=== PATIENT | male | born 1955 | race Caucasian/White ===

== ENCOUNTER → 2018-04-19 07:23 | Outpatient (CLI) | payer OTHER, SELFPAY ==
[2018-04-19 08:46] LABS: Microalbumin,Random Urine 59.7 mg/L (NO RANGE EST.); Microalbumin:Creatinine Ratio 41.2 mg/g CRE (<30 mg/g CRE)
[2018-04-19 08:54] LABS: Anion Gap 9 (5-15); BUN 17 mg/dL (7-18); BUN/Creat Ratio 18.1 RATIO (10-20); Calcium,Total 8.8 mg/dL (8.5-10.1); Chloride 100 mmol/L (98-107); Cholesterol 115 mg/dL (200); Creatinine, Serum 0.94 mg/dL (0.70-1.30); EST Glomerular Filtration Rate 86 mL/min (>60); Est Glom Filt Rate - Afr Amer 104 mL/min (>60); Glucose 142 mg/dL (74-106); High Density Lipoprotein 45 mg/dL; PSA,Total - Annual Screen 0.61 ng/mL (0.00-4.00); Potassium 4.2 mmol/L (3.5-5.1); Sodium Level 140 mmol/L (136-145); Triglycerides 76 mg/dL; Very Low Density Lipoprotein 15 mg/dL (5-40)
[2018-04-19 09:09] LABS: Hemoglobin 14.7 g/dl (13.0-16.5); Mean Corp Hgb Conc 32.7 g/gl (32-36); Mean Corpuscular Hgb 28.2 pg (27.0-32.0); Mean Corpuscular Volume 86.2 fL (80-94); Mean Platelet Vol. 10.4 fl (6.2-12.0); Platelet Count 205 K/mm3 (150-450); RBC Distribution Width SD 41.2 fl (35.1-43.9); Red Blood Count 5.22 M/mm3 (4.6-6.2)
[2018-04-19 09:17] LABS: Scan Indicated on CBC? Y/N NO
[2018-04-21 09:51] LABS: Vitamin B12 854 pg/mL (211-911)
== END ==
PROVIDERS: Family Provider Family Medicine; PCP Family Medicine; Referring Provider Family Medicine; Visit Provider Family Medicine
DX: E11.9 Type 2 diabetes mellitus without complications (principal); E78.5 Hyperlipidemia, unspecified; Z12.5 Encounter for screening for malignant neoplasm of prostate
CPT/HCPCS: 36415; 80048; 80061; 82043; 82570; 82607; 83036; 84153; 85027; G0103

== ENCOUNTER 2018-06-13 06:01 | Day surgery (SDC) | payer OTHER, SELFPAY ==
[2018-06-13] VITALS (10 sets, daily range): BP systolic 109–163; BP diastolic 47–77; PULSE 52–59; RESP 14–16; TEMP 36.8–37.1; O2SAT 95–99; BMI 41.5
--- NOTE | 2018-06-13 06:23 | PCM.HP.STD ---
Problem List (1) Personal history of colonic polyps Status: Acute History of Present Illness Date of Admission: 06/13/18 The patient is a 62 year old M who has a personal history of multiple colon polyps. His most recent colonoscopy was 5 years ago. On today's visit after having the bowel prep he complains of hemorrhoids. He otherwise has not been having abdominal pain bright red blood per rectum or melena. He has been enjoying a stable degree of health. He does have superficial chronic lower extremity venous stasis disease. He is prediabetic on oral medication. He denies chest pain. Past Medical History Allergies lisinopril Adverse Reaction (Verified 05/31/15 15:16) Other Home Medications: Ambulatory Orders Medication Instructions Recorded Amlodipine [Norvasc] 10 mg PO DAILY 04/23/13 Hydrochlorothiazide [Hctz] 25 mg PO DAILY 04/23/13 Losartan Potassium [Cozaar] 50 mg PO DAILY 04/23/13 [place]-3 Fatty Acids [Fish Oil] 300 mg PO DAILY 04/23/13 Aspirin E.C. [Ecotrin] 81 mg PO DAILY@0800 11/09/14 Multivitamins,Therapeutic 1 tablet PO DAILY 11/09/14 [Multivitamin] Metformin HCl [Metformin HCl ER] 1,000 mg PO BID 06/12/18 Smoking Status: Former smoker Review of Systems Constitutional: Denies: Anorexia HEENT: Denies: Difficulty Swallowing Cardiovascular: Denies: Chest Pain Respiratory: Denies: Cough Gastrointestinal: Denies: Abdominal Pain, Hematochezia, Melena Psychiatric: Denies: Anxiety Endocrine: Denies: Change in Body Habitus VTE Information - Inpt Only VTE Present on Admission: No Patient Problems: Active and Suspected Problems Personal history of colonic polyps (Acute) - Physical Exam General: Alert, Oriented x3, Cooperative, No apparent distress HEENT: Atraumatic Oral: Moist Mucosa Neck: Supple Lungs: Clear to auscultation Cardiovascular: Regular rate, Regular Rhythm Abdomen: Bowel Sounds Present, Soft, Non Tender Extremities: No Calf Tenderness, - - Bilateral lower extremity support hose in place Neurological: Cranial nerves II-XII grossly intact Psych/Mental Status: Normal Affect Finger Stick Blood Glucose 136 Assessment/Plan All Active Problems Personal history of colonic polyps (Acute) We will proceed with a colonoscopy with possible biopsy or polypectomy as indicated. The patient is aware of the technique, benefits, risks and alternatives. He has had an opportunity to ask and have questions answered. He presents via open access. Kishore De Anda M.D., F.A.C.S.
[2018-06-13 06:46] LABS: Bedside Glucose 118 mg/dL (70-110)
--- NOTE | 2018-06-13 07:00 | COLBX_PTH ---
PATIENT: MARY HOLDEN LOC: EN U#:[id number] AGE/SX: 62/M ROOM: RE06/13/[address]: Dr. Kishore De Anda MD : 1955 BED: DIS: 06/13/2018 SPEC #: [id number] RECD: 06/13/18 12:10 STATUS: MIKEL NATHALY #: [id number] CLAY: 06/13/18 07:[address]: Kishore De Anda DEPT: SURGICAL PATHOLOGY RECD BY: Connor Wade ENTERED: 06/13/18 12:35 SP TYPE: COLON BX OT DR: Dr. James De Anda III, MD Tissues: A - Ascending colon B - Descending colon Procedures: Surgery Specimen Level IV HEADER OPERATION: Colonoscopy - open access (MOD) PRE-OP DIAGNOSIS: History of colon polyps TISSUE SUBMITTED: A - Biopsy polyp proximal ascending, B - Biopsy polyp descending colon MICROSCOPIC DIAGNOSIS A. Proximal ascending colon polyp, biopsy: Fragments of tubular adenoma. B. Descending colon polyp, biopsy: Fragments of tubular adenoma. AM:nirmala 06/16/18 MICROSCOPIC DESCRIPTION Slides are reviewed. GROSS DESCRIPTION A - Received in fixative is one container labeled with the patient's name and designated biopsy polyp proximal ascending. The specimen consists of two irregular fragments of light rosado soft tissue that in aggregate measure 0.5 x 0.5 x 0.1 cm. The specimen is totally submitted in one cassette. B - Received in fixative is one container labeled with the patient's name and designated biopsy polyp descending colon. The specimen consists of multiple irregular fragments of light rosado soft tissue that in aggregate measure 1 x 0.5 x 0.1 cm. The specimen is totally submitted in one cassette. / SJ:nirmala 06/13/18 TC:5 [facility]: [id number] x2
--- NOTE | 2018-06-13 07:27 | OP.ENDO_ITS ---
Patient Name: Jaswant Aguiar Procedure Date: 06/13/2018 6:53 AM Date of : 1955 Age: 62 Procedure: Colonoscopy Indications: High risk colon cancer surveillance: Personal history of colonic polyps Providers: Kishore De Anda MD Medicines: Midazolam 5 mg IV, Meperidine 100 mg IV Patient Profile: Last Colonoscopy: 5 years ago. Complications: No immediate complications. Procedure: Pre-Anesthesia Assessment: - Prior to the procedure, a History and Physical was performed, and patient medications and allergies were reviewed. The patient's tolerance of previous anesthesia was also reviewed. The risks and benefits of the procedure and the sedation options and risks were discussed with the patient. All questions were answered, and informed consent was obtained. Prior Anticoagulants: The patient has taken aspirin, last dose was 1 day prior to procedure. ASA Grade Assessment: II - A patient with mild systemic disease. After reviewing the risks and benefits, the patient was deemed in satisfactory condition to undergo the procedure. After I obtained informed consent, the scope was passed under direct vision. Throughout the procedure, the patient's blood pressure, pulse, and oxygen saturations were monitored continuously. The colonoscope was introduced through the anus and advanced to the cecum, identified by appendiceal orifice and ileocecal valve. The colonoscopy was performed without difficulty. The patient tolerated the procedure well. The quality of the bowel preparation was good. The ileocecal valve was photographed. Moderate Sedation: Moderate (conscious) sedation was personally administered by the endoscopist. The following parameters were monitored: oxygen saturation, heart rate, blood pressure, and response to care. Total physician intraservice time was 15 minutes. Scope In: 7:02:10 AM Scope Withdrawal Time 0 hours 12 minutes 45 seconds Scope Out: 7:20:37 AM Total Procedure Duration Time 0 hours 18 minutes 27 seconds Findings: Thrombosed hemorrhoid A 4 mm polyp was found in the proximal ascending colon. The polyp was sessile. The polyp was removed with a cold biopsy forceps. Resection and retrieval were complete. A 7 mm polyp was found in the descending colon. The polyp was sessile. The polyp was removed with a cold biopsy forceps. Resection and retrieval were complete. Multiple diverticula were found in the sigmoid colon. Impression: - One 4 mm polyp in the proximal ascending colon, removed with a cold biopsy forceps. Resected and retrieved. - One 7 mm polyp in the descending colon, removed with a cold biopsy forceps. Resected and retrieved. - Diverticulosis in the sigmoid colon. Recommendation: - Discharge patient to home. - Resume previous diet. - Continue present medications. - Telephone my office for pathology results in 1 week. - Repeat colonoscopy in 5 years for surveillance. Procedure Code(s): --- Professional --- 48515, Colonoscopy, flexible; with biopsy, single or multiple 79745, 59, Moderate sedation services provided by the same physician or other qualified health career development consultant performing the diagnostic or therapeutic service that the sedation supports, requiring the presence of an independent trained observer to assist in the monitoring of the patient's level of consciousness and physiological status; initial 15 minutes of intraservice time, patient age 5 years or older Diagnosis Code(s): --- Professional --- Z86.010, Personal history of colonic polyps D12.2, Benign neoplasm of ascending colon D12.4, Benign neoplasm of descending colon K57.30, Diverticulosis of large intestine without perforation or abscess without bleeding CPT copyright 2017 [employer]. All rights reserved. The codes documented in this report are preliminary and upon dual rate dealer review may be revised to meet current compliance requirements. Kishore De Anda MD 06/13/2018 7:26:20 AM This report has been signed electronically. Number of Addenda: 0 Note Initiated On: 06/13/2018 6:53 AM
--- OUTSIDE RECORDS SUMMARY | 2018-08-08 00:48 | XMS RPT_ITS ---
:1955 Author Organization OHIP Care Team Providers Name Role Phone JAMES SHARIF III Attending Unavailable Cebul III, James Attending Unavailable Cebul IIIJames Primary Care Unavailable Cebul IIIJames Attending Unavailable Cebul III, James Referring Unavailable Cebul IIIJames Primary Care Unavailable Cebul III, James Attending Unavailable Cebul III, James Referring Unavailable Cebul III, James Primary Care Unavailable Nurse, Standard Attending Unavailable Cebul III, James Referring Unavailable Cebul, Kishore Attending Unavailable Cebul, Kishore Referring Unavailable Cebul III, James Primary Care Unavailable Cebul, Kishore Attending Unavailable Cebul, Kishore Referring Unavailable Cebul III, James Primary Care Unavailable Cebul, Kishore Consulting Unavailable PROBLEMS PROBLEMS DATE TYPE CONDITION / CODE ATTENDING STATUS SOURCE 05/02/2018 Unknown M54.9 - Dorsalgia, Cebul III, Active [place] unspecified / [facility] M54.9(ICD-10) Hospital Repository 05/27/2018 Unknown E11.9 - Type 2 Cebul III, Active [place] diabetes mellitus [facility] without Hospital complications / Repository E11.9(ICD-10) 06/26/2017 Unknown M54.2 - Cervicalgia Cebul III, Active [place] / M54.2(ICD-10) [facility] Hospital Repository 06/26/2017 Unknown G89.29 - Other Cebul III, Active [place] chronic pain / [facility] G89.29(ICD-10) Hospital Repository PROCEDURES PROCEDURES No Procedure Records FoundRESULTS RESULTS OPERATIVE REPORT - Observed: 06/13/2018 Status: F Source: [place] [facility] 7:27 AM [facility] REPOSIT[facility] Medical Records Department [address] [place] [id number] Operative Report - Endoscopy MR#: [id number] Acct: [id number] Name: JASWANT AGUIAR Rep #: [id number] : 1955 62 From: Kishore Sharif MD PCP: James Sharif III, MD Status: REG [facility] Patient Name: Jaswant Aguiar Procedure Date: 06/13/2018 6:53 AM Date of : 1955 Age: 62 Procedure: Colonoscopy Indications: High risk colon cancer surveillance: Personal history of colonic polyps Providers: Kishore Sharif MD Medicines: Midazolam 5 mg IV, Meperidine 100 mg IV Patient Profile: Last Colonoscopy: 5 years ago. Complications: No immediate complications. Procedure: Pre-Anesthesia Assessment: - Prior to the procedure, a History and Physical was performed, and patient medications and allergies were reviewed. The patient's tolerance of previous anesthesia was also reviewed. The risks and benefits of the procedure and the sedation options and risks were discussed with the patient. All questions were answered, and informed consent was obtained. Prior Anticoagulants: The patient has taken aspirin, last dose was 1 day prior to procedure. ASA Grade Assessment: II - A patient with mild systemic disease. After reviewing the risks and benefits, the patient was deemed in satisfactory condition to undergo the procedure. After I obtained informed consent, the scope was passed under direct vision. Throughout the procedure, the patient's blood pressure, pulse, and oxygen saturations were monitored continuously. The colonoscope was introduced through the anus and advanced to the cecum, identified by appendiceal orifice and ileocecal valve. The colonoscopy was performed without difficulty. The patient tolerated the procedure well. The quality of the bowel preparation was good. The ileocecal valve was photographed. Moderate Sedation: Moderate (conscious) sedation was personally administered by the endoscopist. The following parameters were monitored: oxygen saturation, heart rate, blood pressure, and response to care. Total physician intraservice time was 15 minutes. Scope In: 7:02:10 AM Scope Withdrawal Time 0 hours 12 minutes 45 seconds Scope Out: 7:20:37 AM Total Procedure Duration Time 0 hours 18 minutes 27 seconds Findings: Thrombosed hemorrhoid A 4 mm polyp was found in the proximal ascending colon. The polyp was sessile. The polyp was removed with a cold biopsy forceps. Resection and retrieval were complete. A 7 mm polyp was found in the descending colon. The polyp was sessile. The polyp was removed with a cold biopsy forceps. Resection and retrieval were complete. Multiple diverticula were found in the sigmoid colon. Impression: - One 4 mm polyp in the proximal ascending colon, removed with a cold biopsy forceps. Resected and retrieved. - One 7 mm polyp in the descending colon, removed with a cold biopsy forceps. Resected and retrieved. - Diverticulosis in the sigmoid colon. Recommendation: - Discharge patient to home. - Resume previous diet. - Continue present medications. - Telephone my office for pathology results in 1 week. - Repeat colonoscopy in 5 years for surveillance. Procedure Code(s): --- Professional --- 21802, Colonoscopy, flexible; with biopsy, single or multiple 70433, 59, Moderate sedation services provided by the same physician or other qualified health rn critical care performing the diagnostic or therapeutic service that the sedation supports, requiring the presence of an independent trained observer to assist in the monitoring of the patient's level of consciousness and physiological status; initial 15 minutes of intraservice time, patient age 5 years or older Diagnosis Code(s): --- Professional --- Z86.010, Personal history of colonic polyps D12.2, Benign neoplasm of ascending colon D12.4, Benign neoplasm of descending colon K57.30, Diverticulosis of large intestine without perforation or abscess without bleeding CPT copyright 2017 [employer]. All rights reserved. The codes documented in this report are preliminary and upon irish moss operator review may be revised to meet current compliance requirements. Kishore Sharif MD 06/13/2018 7:26:20 AM This report has been signed electronically. Number of Addenda: 0 Note Initiated On: 06/13/2018 6:53 AM 06/13/18725 Date Kishore Sharif MD Cosigner Signature: Date (if indicated) CC: James Sharif III, MD; Kishore Sharif MD Date Dictated: 06/13/1853 Date Transcribed: Home Aide: KELLY Signed COLON BIOPSY (CHOOSE Observed: 06/13/2018 Status: F Source: [facility]) 7:00 AM [facility] REPOSITORY Patient: JASWANT AGUIAR : 1955 (62/M) Acct Num: [id number] Phys: Adilson ROJAS,Kishore Unit Num: [id number] Loc: EN Specimen: [id number] Received: 06/13/180 Spec Type: COLON BX TISSUES 1 TISSUES: A. Ascending colon B. Descending colon GROSS DESCRIPTION A - Received in fixative is one container labeled with the patient's name and designated biopsy polyp proximal ascending. The specimen consists of two irregular fragments of light rosado soft tissue that in aggregate measure 0.5 x 0.5 x 0.1 cm. The specimen is totally submitted in one cassette. B - Received in fixative is one container labeled with the patient's name and designated biopsy polyp descending colon. The specimen consists of multiple irregular fragments of light roasdo soft tissue that in aggregate measure 1 x 0.5 x 0.1 cm. The specimen is totally submitted in one cassette. / SJ:nirmala 06/13/18 TC:5 CPT: 24863 x2 HEADER OPERATION: Colonoscopy - open access (MOD) PRE-OP DIAGNOSIS: History of colon polyps TISSUE SUBMITTED: A - Biopsy polyp proximal ascending, B - Biopsy polyp descending colon MICROSCOPIC DESCRIPTION Slides are reviewed. MICROSCOPIC DIAGNOSIS A. Proximal ascending colon polyp, biopsy: Fragments of tubular adenoma. B. Descending colon polyp, biopsy: Fragments of tubular adenoma. AM:nirmala 06/16/18 Signed Gonzalez Rajendra 06/16/18 <signature on file> Performed By: #### PCOLBX #### [facility] [address] [place], [address] BEDSIDE GLUCOSE Collected: 06/13/2018 Status: F Source: [place] 6:37 AM [facility] REPOSITORY TYPE CODE TESTS RESULT OUT OF REFERENCE UNITS RANGE LAB L501.080 70-110 mg/dL High BEDSIDE GLU 118 Result Comment: MANAGEMENT OF PATIENT CARE PER NURSING PROTOCOL Performed By: #### L501.080 #### [facility] Point of Care [address] [facility] [place] [place] [address] HISTORY AND PHYSICAL Observed: 06/13/2018 Status: F Source: [place] [facility] 6:26 AM [facility] REPOSITORY [facility] Medical Records Department [address] [place] [address] History and Physical 06/13/18 0623 MR#: [id number] Acct: [id number] Name: JASWANT AGUIAR Rep #: [id number] : 1955 62 From: Kishore Sharif MD PCP: James Sharif III, MD Status: REG [place] Y Location: [place] [address] Problem List (1) Personal history of colonic polyps Status: Acute History of Present Illness Date of Admission: 06/13/18 The patient is a 62 year old M who has a personal history of multiple colon polyps. His most recent colonoscopy was 5 years ago. On today's visit after having the bowel prep he complains of hemorrhoids. He otherwise has not been having abdominal pain bright red blood per rectum or melena. He has been enjoying a stable degree of health. He does have superficial chronic lower extremity venous stasis disease. He is prediabetic on oral medication. He denies chest pain. Past Medical History Allergies lisinopril Adverse Reaction (Verified 05/31/15 15:16) Other Home Medications: Ambulatory Orders Medication Instructions Recorded Smoking Status: Former smoker Review of Systems Constitutional: Denies: Anorexia HEENT: Denies: Difficulty Swallowing Cardiovascular: Denies: Chest Pain Respiratory: Denies: Cough Gastrointestinal: Denies: Abdominal Pain, Hematochezia, Melena Psychiatric: Denies: Anxiety Endocrine: Denies: Change in Body Habitus VTE Information - Inpt Only VTE Present on Admission: No Patient Problems: Active and Suspected Problems Personal history of colonic polyps (Acute) - Physical Exam General: Alert, Oriented x3, Cooperative, No apparent distress HEENT: Atraumatic Oral: Moist Mucosa Neck: Supple Lungs: Clear to auscultation Cardiovascular: Regular rate, Regular Rhythm Abdomen: Bowel Sounds Present, Soft, Non Tender Extremities: No Calf Tenderness, - - Bilateral lower extremity support hose in place Neurological: Cranial nerves II-XII grossly intact Psych/Mental Status: Normal Affect Finger Stick Blood Glucose 136 Assessment/Plan All Active Problems Personal history of colonic polyps (Acute) We will proceed with a colonoscopy with possible biopsy or polypectomy as indicated. The patient is aware of the technique, benefits, risks and alternatives. He has had an opportunity to ask and have questions answered. He presents via open access. Kishore Sharif M.D., F.A.C.S. 06/13/18 0626 <Electronically signed by Kishore Sharif MD> Date Kishore Sharif MD Cosigner Signature: Date (if applicable) CC: James Sharif III, MD; Kishore Sharif MD Signed PROGRESS Observed: 05/02/2018 Status: COMPLETED Source: [place] 9:41 AM [facility] [place] REPOSITORY HNO ID: [id number] Author: James Sharif III Service: (none) Author Type: Physician Type: Progress Notes Filed: 05/02/2018 12:44 PM Note Text: SUBJECTIVE: Chief Complaint: Jaswant Aguiar is a 62 year old male who presents for comprehensive problem evaluation. New concerns today include 1. diabetes mellitus--poor diet and no reg exercise 2. hypertension 3. hyperlipidemia 4. morbid obesity 5. fell backwards when a tree limb fell down into him injuring R shoulder and contusion R post hip Feeling a bit better 6. ch pain R 2nd and 3rd MCP and R middle finger flexion tendon 7. ch episodic pain post L heel and bottom L heel/lat edge L foot for yrs. Previous cortisone injection Post L heel and orthotic helped with heel pain. The pain seems worse in the mornings but better as the day goes on. 8. daytime falling to sleep in chair and states he snores loudly. No reported witnessed sleep apnea/. Discussed sleep study--pt declined. 9. Patient would like screening colonoscopy by Dr. Kishore Sharif Exercises regularly No Prostate cancer screening up to date Yes Colon cancer screening is up to date Yes Last colonoscopy was done 2012 Cholesterol screening up to date Yes Current Outpatient Prescriptions on File Prior to Visit: albuterol HFA (PROVENTIL HFA, VENTOLIN HFA) 90 mcg/actuation inhaler Inhale 2 Puffs as instructed every 4 hours as needed. metFORMIN (GLUCOPHAGE) 500 mg tablet Take 1 tablet by mouth twice daily with meals. . hydroCHLOROthiazide (HYDRODIURIL, ESIDRIX) 25 mg tablet Take 1 tablet by mouth once daily. amLODIPine (NORVASC) 10 mg tablet Take 1 tablet by mouth once daily. losartan (COZAAR) 100 mg tablet Take 1 tablet by mouth once daily. atorvastatin (LIPITOR) 20 mg tablet Take 1 tablet by mouth once daily. For cholesterol. metroNIDAZOLE 1 % gel Apply 1 application to affected area twice daily. Aspirin 81 mg tab Take 1 tablet by mouth once daily. Take with food. [place]-3 Fatty Acids-Vitamin E (FISH OIL) 1,000 mg cap Take 1 capsule by mouth once daily. MULTI-VITAMIN ORAL Take by mouth. Miscellaneous Medical Supply (COMPRESSION STOCKINGS) [facility] [place] 20-30 compression: put on daily before rising from bed albuterol (PROVENTIL) 5 mg/mL nebu Inhale 0.5 mL as instructed one time only for 1 dose. 1 DOSE NOW - BACK OFFICE. PLACE 0.5 ML PER DROPPER AND 2.5 ML OF NORMAL SALINE INTO RESERVOIR. benzonatate (TESSALON PERLE) 100 mg capsule Take 1-2 capsules by mouth three times daily as needed. (Patient not taking: Reported on 05/02/2018 ) No current facility-administered medications on file prior to visit. PAST MEDICAL HISTORY Diagnosis Date - Calculus of gallbladder without mention of cholecystitis or obstruction 03/08/2005 - Chest pain, unspecified 03/08/2005 - Cholecystitis, unspecified 03/08/2005 - Chronic venous insufficiency 11/16/2014 See scanned documents - [facility] - Diabetes mellitus (HCC) 07/14/2010 - Esophageal reflux 03/08/2005 - External hemorrhoids without mention of complication 03/08/2005 - Generalized osteoarthrosis, unspecified site 03/08/2005 - Hyperlipidemia LDL goal < 100 07/14/2010 - Internal hemorrhoids without mention of complication 03/08/2005 - Obesity 07/06/2010 - Open wound of knee, leg (except thigh), and ankle, without mention of complication 03/08/2005 - Sprain of lumbosacral (joint) (ligament) 03/08/2005 - Stasis dermatitis 07/07/2011 - Unspecified venous (peripheral) insufficiency 03/08/2005 - 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) 03/08/2005 PAST SURGICAL HISTORY Procedure Laterality Date - COLONOS W/REM POLYP SNARE 04-23-13 - COLONOSCOP W/ OR W/O [facility] SPEC 11-21-07 - DEBRIDE SKIN AND SUBQ TISSU Left 06/27/15 Debridement UIQ left breast infected glenny cyst - ENDOVENOUS LASER, 1ST VEIN 11/16/2014 [facility] - see scanned documents - ENDOVENOUS LASER, 1ST VEIN 06/05/2015 [facility] - right great saphenous vein - REMOVAL GALLBLADDER 2002 Cholecystectomy - REVISE MEDIAN N/CARPAL TUNNEL SURG Carpal tunnel decomp, right - STRESS TEST EXERCISE 09/21/2013 Exercise Myocardial Perfusion Stress test - TONSILLECTOMY HX under age 10 FAMILY HISTORY Problem Relation Age of Onset - Heart Mother CHF, DM - Diabetes Mother - Cancer Father lung - Hypertension Sister - Hypertension Brother - COPD Brother Social History Marital status: Spouse name: Years of education: Number of children: Occupational History Occupation Employer Comment [employer] Social History Main Topics Smoking status: Former Smoker Packs/day: 0.50 Years: 30.00 Types: Cigarettes Quit date: 01/15/2010 Smokeless tobacco: Former User Quit date: 05/03/2011 Alcohol use: Yes Drug use: No Sexual activity: Yes Partners with: Female Immunization History Administered Date(s) Administered Influenza Seasonal Inj Age 3+ 04/23/2018 Influenza Vaccine, Split-Non Spec 08/08/2012 Pneumococcal-13 Vac Conjugate 09/21/2014 ACTIVE PROBLEM LIST Venous (Peripheral) Insufficiency Generalized Osteoarthrosis, Unspecified Site Unspecified Sleep Apnea Essential Hypertension, Benign History of Colonic Polyps Obesity, Class Iii, Bmi 40-49.9 (Morbid Obesity) (Hcc) Hyperlipidemia With Target Ldl Less Than 100 Stasis Dermatitis Varicosities of Leg Type 2 Diabetes Mellitus Without Complication, Without Long- Term Current Use of Insulin (Hcc) Carpal Tunnel Syndrome, Left REVIEW OF SYSTEMS General: Denies fever, chills, night sweats, or changes in weight. Dermatologic: Denies any new skin conditions, rashes or changing moles. Eyes: ENT: Respiratory: Denies any cough, dyspnea, or wheezing. Cardiovascular: Denies any chest pain with exertion or at rest, palpitations, syncope, or edema. Gastrointestinal: Denies any nausea, vomiting, abdominal pain, heartburn, changes in bowel habit, Denies any rectal bleeding. Genitourinary: Denies Denies problems with urinary stream., Denies dysuria, frequency, urgency, incontinence, erectile dysfunction, hematuria and nocturia. Musculoskeletal: She history of present illness Neurologic: Denies any headaches, tremors, dizziness, vertigo, memory loss, confusion., Denies weakness, numbness or tingling. Psychiatric: Denies any sleeping problems, history of abuse, marital discord., Denies any anxiety or depression. Hematologic/Lymphatic/Immunologic: Denies anemia, bruising, bleeding abnormalities. Endocrine: Denies any heat or cold intolerance, polyuria or polydipsia. OBJECTIVE: PHYSICAL EXAMINATION: BP 132/69 Pulse (!) 59 Resp 18 Ht 185.4 cm (6' 1) Wt (!) 143.3 kg (316 lb) BMI 41.69 kg/m? GENERAL APPEARANCE Well appearing, alert, in no acute distress, well-hydrated, well nourished. and Morbidly obese SKIN: Skin color, texture, turgor normal, no suspicious rashes or lesions HEAD: No significant findings. NECK: Supple, full range of motion, no lymphadenopathy, normal thyroid, no carotid bruits, no JVD and thickc neck BACK: Back symmetric, Normal curvature, No CVAT. LUNGS: normal pulmonary exam and clear to auscultation and percussion HEART: Normal PMI, Regular rate and rhythm, Normal heart sounds, S1 and S2 and No murmurs. BREASTS: ABDOMEN: Soft, Obese, Non-tender, No palpable masses and No hepatosplenomegaly. EXTREMTIES: extremities normal, no deformities, no skin discoloration, no edema, normal pulses bilaterally., Varicose veins both lower legs and especially medial heels bilaterally. Grade 1/4 dorsal pedal pulses bilaterally. Calluses on the big toes bilaterally. Normal monofilament sensation bottoms of both feet. There is also a light brown macules anterior shins bilaterally --Swelling of the second and third MCP joints of the right hand. Mild tenderness with palpation of these MCP joints and some mild pain with range of motion of the right index finger at the MCP joint. Unable to fully extend the PIP joint of the right middle finger. NEURO: Awake, alert and oriented x 3, Normal gait, No involuntary motions., muscle tone normal, muscle strength normal GENITALIA: Penis normal, no urethral discharge, scrotum normal to palpation, no hernias RECTAL: Anus normal, no anorectal masses, Prostate normal size, consistency, no nodules, and no tenderness, prostate spongy and grade 2/4 size Lab 04/19/18: Cholesterol 115 TG 76 HDL 45 LDL 55 hemoglobin A1c 7.0 urine albumin/creatinine 41 GFR 86 PSA .61 na 140 K 4.2 WBC 6.0 Hemoglobin 14.7 creatinine 0.94 ASSESSMENT: Diabetes mellitus?not at goal Hypertension?at goal Hyperlipidemia?at goal Morbid obesity?not at goal Contusion right posterior buttock and strain right shoulder from a recent fall Osteoarthritis of the second and third MCP joints of the right hand Mild flexion tendon tendinopathy right middle finger Tight left Achilles tendon and left plantar fasciitis Probable sleep apnea PLAN: healthy weight losing diet and regular exercise eat less sugar, bread, potato, pasta, rice, corn, corn syrup, saturated fats regular stretching of Achilles tendon and bottoms of both feet. increase metformin 1000mg before breakfast and before supper same other medications recheck HbA1c in 6 mos with appointment to follow diabetes mellitus and obesity consider home sleep study to evaluate for sleep apnea Screening colonoscopy with Dr. Kishore Sharif as per patient request James Sharif III MD CNOV Observed: 05/02/2018 Status: COMPLETED Source: [place] 9:20 AM [facility] REPOSITORY [facility] JASWANT AGUIAR ([id number]) 1955 M Date Time Provider Department 05/02/18 9:20 AM JAMES SHARIF III During your visit today, we recorded the following information about you: Pulse Respiration Blood pressure Weight 59/minute 18/minute 132/69 143.3 kg Height 1.854 m James Sharif III MD 05/02/2018 12:44 PM Signed SUBJECTIVE: Chief Complaint: Jaswant Aguiar is a 62 year old male who presents for comprehensive problem evaluation. New concerns today include 1. diabetes mellitus--poor diet and no reg exercise 2. hypertension 3. hyperlipidemia 4. morbid obesity 5. fell backwards when a tree limb fell down into him injuring R shoulder and contusion R post hip Feeling a bit better 6. ch pain R 2nd and 3rd MCP and R middle finger flexion tendon 7. ch episodic pain post L heel and bottom L heel/lat edge L foot for yrs. Previous cortisone injection Post L heel and orthotic helped with heel pain. The pain seems worse in the mornings but better as the day goes on. 8. daytime falling to sleep in chair and states he snores loudly. No reported witnessed sleep apnea/. Discussed sleep study--pt declined. 9. Patient would like screening colonoscopy by Dr. Kishore Sharif Exercises regularly No Prostate cancer screening up to date Yes Colon cancer screening is up to date Yes Last colonoscopy was done 2012 Cholesterol screening up to date Yes Current Outpatient Prescriptions on File Prior to Visit: albuterol HFA (PROVENTIL HFA, VENTOLIN HFA) 90 mcg/actuation inhaler Inhale 2 Puffs as instructed every 4 hours as needed. metFORMIN (GLUCOPHAGE) 500 mg tablet Take 1 tablet by mouth twice daily with meals. . hydroCHLOROthiazide (HYDRODIURIL, ESIDRIX) 25 mg tablet Take 1 tablet by mouth once daily. amLODIPine (NORVASC) 10 mg tablet Take 1 tablet by mouth once daily. losartan (COZAAR) 100 mg tablet Take 1 tablet by mouth once daily. atorvastatin (LIPITOR) 20 mg tablet Take 1 tablet by mouth once daily. For cholesterol. metroNIDAZOLE 1 % gel Apply 1 application to affected area twice daily. Aspirin 81 mg tab Take 1 tablet by mouth once daily. Take with food. [place]-3 Fatty Acids-Vitamin E (FISH OIL) 1,000 mg cap Take 1 capsule by mouth once daily. MULTI-VITAMIN ORAL Take by mouth. Miscellaneous Medical Supply (COMPRESSION STOCKINGS) [facility] [place] 20-30 compression: put on daily before rising from bed albuterol (PROVENTIL) 5 mg/mL nebu Inhale 0.5 mL as instructed one time only for 1 dose. 1 DOSE NOW - BACK OFFICE. PLACE 0.5 ML PER DROPPER AND 2.5 ML OF NORMAL SALINE INTO RESERVOIR. benzonatate (TESSALON PERLE) 100 mg capsule Take 1-2 capsules by mouth three times daily as needed. (Patient not taking: Reported on 05/02/2018 ) No current facility-administered medications on file prior to visit. PAST MEDICAL HISTORY Diagnosis Date - Calculus of gallbladder without mention of cholecystitis or obstruction 03/08/2005 - Chest pain, unspecified 03/08/2005 - Cholecystitis, unspecified 03/08/2005 - Chronic venous insufficiency 11/16/2014 See scanned documents - [facility] - Diabetes mellitus (HCC) 07/14/2010 - Esophageal reflux 03/08/2005 - External hemorrhoids without mention of complication 03/08/2005 - Generalized osteoarthrosis, unspecified site 03/08/2005 - Hyperlipidemia LDL goal < 100 07/14/2010 - Internal hemorrhoids without mention of complication 03/08/2005 - Obesity 07/06/2010 - Open wound of knee, leg (except thigh), and ankle, without mention of complication 03/08/2005 - Sprain of lumbosacral (joint) (ligament) 03/08/2005 - Stasis dermatitis 07/07/2011 - Unspecified venous (peripheral) insufficiency 03/08/2005 - 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) 03/08/2005 PAST SURGICAL HISTORY Procedure Laterality Date - COLONOS W/REM POLYP SNARE 04-23-13 - COLONOSCOP W/ OR W/O [facility] SPEC 11-21-07 - DEBRIDE SKIN AND SUBQ TISSU Left 06/27/15 Debridement UIQ left breast infected glenny cyst - ENDOVENOUS LASER, 1ST VEIN 11/16/2014 [facility] - see scanned documents - ENDOVENOUS LASER, 1ST VEIN 06/05/2015 [facility] - right great saphenous vein - REMOVAL GALLBLADDER 2002 Cholecystectomy - REVISE MEDIAN N/CARPAL TUNNEL SURG Carpal tunnel decomp, right - STRESS TEST EXERCISE 09/21/2013 Exercise Myocardial Perfusion Stress test - TONSILLECTOMY HX under age 12 FAMILY HISTORY Problem Relation Age of Onset - Heart Mother CHF, DM - Diabetes Mother - Cancer Father lung - Hypertension Sister - Hypertension Brother - COPD Brother Social History Marital status: Spouse name: Years of education: Number of children: Occupational History Occupation Employer Comment [employer]* Social History Main Topics Smoking status: Former Smoker Packs/day: 0.50 Years: 30.00 Types: Cigarettes Quit date: 01/15/2010 Smokeless tobacco: Former User Quit date: 05/03/2011 Alcohol use: Yes Drug use: No Sexual activity: Yes Partners with: Female Immunization History Administered Date(s) Administered Influenza Seasonal Inj Age 3+ 04/23/2018 Influenza Vaccine, Split-Non Spec 08/08/2012 Pneumococcal-13 Vac Conjugate 09/21/2014 ACTIVE PROBLEM LIST Venous (Peripheral) Insufficiency Generalized Osteoarthrosis, Unspecified Site Unspecified Sleep Apnea Essential Hypertension, Benign History of Colonic Polyps Obesity, Class Iii, Bmi 40-49.9 (Morbid Obesity) (Hcc) Hyperlipidemia With Target Ldl Less Than 100 Stasis Dermatitis Varicosities of Leg Type 2 Diabetes Mellitus Without Complication, Without Long- Term Current Use of Insulin (Hcc) Carpal Tunnel Syndrome, Left REVIEW OF SYSTEMS General: Denies fever, chills, night sweats, or changes in weight. Dermatologic: Denies any new skin conditions, rashes or changing moles. Eyes: ENT: Respiratory: Denies any cough, dyspnea, or wheezing. Cardiovascular: Denies any chest pain with exertion or at rest, palpitations, syncope, or edema. Gastrointestinal: Denies any nausea, vomiting, abdominal pain, heartburn, changes in bowel habit, Denies any rectal bleeding. Genitourinary: Denies Denies problems with urinary stream., Denies dysuria, frequency, urgency, incontinence, erectile dysfunction, hematuria and nocturia. Musculoskeletal: She history of present illness Neurologic: Denies any headaches, tremors, dizziness, vertigo, memory loss, confusion., Denies weakness, numbness or tingling. Psychiatric: Denies any sleeping problems, history of abuse, marital discord., Denies any anxiety or depression. Hematologic/Lymphatic/Immunologic: Denies anemia, bruising, bleeding abnormalities. Endocrine: Denies any heat or cold intolerance, polyuria or polydipsia. OBJECTIVE: PHYSICAL EXAMINATION: BP 132/69 Pulse (!) 59 Resp 18 Ht 185.4 cm (6' 1) Wt (!) 143.3 kg (316 lb) BMI 41.69 kg/m? GENERAL APPEARANCE Well appearing, alert, in no acute distress, well-hydrated, well nourished. and Morbidly obese SKIN: Skin color, texture, turgor normal, no suspicious rashes or lesions HEAD: No significant findings. NECK: Supple, full range of motion, no lymphadenopathy, normal thyroid, no carotid bruits, no JVD and thickc neck BACK: Back symmetric, Normal curvature, No CVAT. LUNGS: normal pulmonary exam and clear to auscultation and percussion HEART: Normal PMI, Regular rate and rhythm, Normal heart sounds, S1 and S2 and No murmurs. BREASTS: ABDOMEN: Soft, Obese, Non-tender, No palpable masses and No hepatosplenomegaly. EXTREMTIES: extremities normal, no deformities, no skin discoloration, no edema, normal pulses bilaterally., Varicose veins both lower legs and especially medial heels bilaterally. Grade 1/4 dorsal pedal pulses bilaterally. Calluses on the big toes bilaterally. Normal monofilament sensation bottoms of both feet. There is also a light brown macules anterior shins bilaterally --Swelling of the second and third MCP joints of the right hand. Mild tenderness with palpation of these MCP joints and some mild pain with range of motion of the right index finger at the MCP joint. Unable to fully extend the PIP joint of the right middle finger. NEURO: Awake, alert and oriented x 3, Normal gait, No involuntary motions., muscle tone normal, muscle strength normal GENITALIA: Penis normal, no urethral discharge, scrotum normal to palpation, no hernias RECTAL: Anus normal, no anorectal masses, Prostate normal size, consistency, no nodules, and no tenderness, prostate spongy and grade 2/4 size Lab 04/19/18: Cholesterol 115 TG 76 HDL 45 LDL 55 hemoglobin A1c 7.0 urine albumin/creatinine 41 GFR 86 PSA .61 na 140 K 4.2 WBC 6.0 Hemoglobin 14.7 creatinine 0.94 ASSESSMENT: Diabetes mellitus?not at goal Hypertension?at goal Hyperlipidemia?at goal Morbid obesity?not at goal Contusion right posterior buttock and strain right shoulder from a recent fall Osteoarthritis of the second and third MCP joints of the right hand Mild flexion tendon tendinopathy right middle finger Tight left Achilles tendon and left plantar fasciitis Probable sleep apnea PLAN: healthy weight losing diet and regular exercise eat less sugar, bread, potato, pasta, rice, corn, corn syrup, saturated fats regular stretching of Achilles tendon and bottoms of both feet. increase metformin 1000mg before breakfast and before supper same other medications recheck HbA1c in 6 mos with appointment to follow diabetes mellitus and obesity consider home sleep study to evaluate for sleep apnea Screening colonoscopy with Dr. Kishore Sharif as per patient request James Sharif III MD Referring Provider: SELF [[id number]] Allergies As of Date: 05/02/2018 Noted Allergy Reaction LISINOPRIL 10/30/2007 3 - Cough Date Reviewed: 05/02/2018 Reviewed by: Phuong ([facility]) VIVI Cortez - Fully Assessed Reason for Visit: Physical [83] Primary Visit Diagnosis:Type 2 diabetes mellitus without complication, without long-term current use of insulin (HCC) [E11.9] Other Visit Diagnoses:Need for vaccination [Z23] Essential hypertension, benign [I10] Obesity, Class III, BMI 40-49.9 (morbid obesity) (HCC) [E66.01] Hyperlipidemia with target LDL less than 100 [E78.5] Plantar fasciitis [M72.2] Contusion of right hip, initial encounter [S70.01XA] Screening for colon cancer [Z12.11] Order(s):PNEUMOCOCCAL IMMUNIZATION PPSV 23 [[id number]] Order #: [id number] hydroCHLOROthiazide (HYDRODIURIL, ESIDRIX) 25 mg tabletTake 1 tablet by mouth once daily.Disp: 90 tabletRfl: 3 amLODIPine (NORVASC) 10 mg tabletTake 1 tablet by mouth once daily.Disp: 90 tabletRfl: 3 losartan (COZAAR) 100 mg tabletTake 1 tablet by mouth once daily.Disp: 90 tabletRfl: 3 atorvastatin (LIPITOR) 20 mg tabletTake 1 tablet by mouth once daily. For cholesterol.Disp: 90 tabletRfl: 3 metroNIDAZOLE 1 % gelApply 1 application to affected area once daily.Disp: 60 gRfl: 3 metFORMIN (GLUCOPHAGE) 1,000 mg tabletTake 1 tablet by mouth twice daily with meals.Disp: 180 tabletRfl: 3 HGB A1C [FYNAE0D] Order #: [id number] FUTURE COMP METABOLIC PANEL [SQCMP] Order #: [id number] FUTURE CONSULT TO GENERAL SURGERY [9010] Order #: [id number]: 1 Prescriptions as of 05/02/2018 Sig: HYDROCHLOROTHIAZIDE 25 MG TAB* Take 1 tablet by mouth once d* AMLODIPINE 10 MG TABLET Take 1 tablet by mouth once d* LOSARTAN 100 MG TABLET Take 1 tablet by mouth once d* ATORVASTATIN 20 MG TABLET Take 1 tablet by mouth once d* METRONIDAZOLE 1 % TOPICAL GEL Apply 1 application to affect* ALBUTEROL SULFATE HFA 90 MCG/* Inhale 2 Puffs as instructed * ASPIRIN 81 MG TABLET Take 1 tablet by mouth once d* OMEGA-3 FATTY ACIDS-VITAMIN E* Take 1 capsule by mouth once * MULTI-VITAMIN ORAL Take by mouth. MISCELLANEOUS MEDICAL SUPPLY * 20-30 compression: put on blaire* METFORMIN 1,000 MG TABLET Take 1 tablet by mouth twice * ALBUTEROL SULFATE CONCENTRATE* Inhale 0.5 mL as instructed o* BENZONATATE 100 MG CAPSULE Take 1-2 capsules by mouth th* Patient not taking: Reported on 05/02/2018 Problem List As Of Date 05/02/2018 Noted Resolved Internal hemorrhoids without mention of complic*INVALID FOR*09/21/2014 Venous (peripheral) insufficiency [I87.2] INVALID FOR* External hemorrhoids without mention of complic*INVALID FOR*09/21/2014 GENERAL OSTEOARTHROSIS [M15.9] INVALID FOR* Sprain of lumbosacral (joint) (ligament) [S33.5*INVALID FOR*09/21/2014 Open wound of knee, leg (except thigh), and ank*INVALID FOR*09/21/2014 Chest pain, unspecified [R07.9] INVALID FOR*09/21/2014 Esophageal reflux [K21.9] INVALID FOR*09/21/2014 Calculus of gallbladder without mention of chol*INVALID FOR*09/21/2014 Cholecystitis, unspecified [K81.9] INVALID FOR*09/21/2014 Varicose veins of lower extremities with ulcer *INVALID FOR*09/21/2014 SLEEP APNEA NOS [G47.30] INVALID FOR* More... BENIGN HYPERTENSION [I10] INVALID FOR* History of colonic polyps [Z86.010] INVALID FOR* Obesity, Class III, BMI 40-49.9 (morbid obesity*INVALID FOR* Carpal tunnel syndrome on left [G56.02] INVALID FOR*09/21/2014 Hyperlipidemia with target LDL less than 100 [E*INVALID FOR* Stasis dermatitis [I87.2] INVALID FOR* Varicosities of leg [I83.90] INVALID FOR* Type 2 diabetes mellitus without complication, *INVALID FOR* Carpal tunnel syndrome, left [G56.02] INVALID FOR* Cervicalgia [M54.2] INVALID FOR* Dorsalgia [M54.9] INVALID FOR* Plantar fasciitis [M72.2] INVALID FOR* Prescriptions ordered this encounter Disp Refills Start End HYDROCHLOROTHIAZIDE 25 MG TABLET 90 t* 3 05/02/2018 Route: ORAL Sig: Take 1 tablet by mouth once daily. AMLODIPINE 10 MG TABLET 90 t* 3 05/02/2018 Route: ORAL Sig: Take 1 tablet by mouth once daily. LOSARTAN 100 MG TABLET 90 t* 3 05/02/2018 Route: ORAL Sig: Take 1 tablet by mouth once daily. ATORVASTATIN 20 MG TABLET 90 t* 3 05/02/2018 Route: ORAL Sig: Take 1 tablet by mouth once daily. For cholesterol. METRONIDAZOLE 1 % TOPICAL GEL 60 g 3 05/02/2018 Route: TOPICAL Sig: Apply 1 application to affected area once daily. METFORMIN 1,000 MG TABLET 180 * 3 05/02/2018 Route: ORAL Sig: Take 1 tablet by mouth twice daily with meals. Medications Discontinued During This Encounter metFORMIN (GLUCOPHAGE) 500 mg tablet 180 * 3 04/12/2017 05/02/2018 Route: ORAL Sig: Take 1 tablet by mouth twice daily with meals. . Disc: Dosage adjustment hydroCHLOROthiazide (HYDRODIURIL, ES* 90 t* 3 04/12/2017 05/02/2018 Route: ORAL Sig: Take 1 tablet by mouth once daily. Disc: Reason for discontinue is not on file. amLODIPine (NORVASC) 10 mg tablet 90 t* 3 04/12/2017 05/02/2018 Route: ORAL Sig: Take 1 tablet by mouth once daily. Disc: Reason for discontinue is not on file. losartan (COZAAR) 100 mg tablet 90 t* 3 04/12/2017 05/02/2018 Route: ORAL Sig: Take 1 tablet by mouth once daily. Disc: Reason for discontinue is not on file. atorvastatin (LIPITOR) 20 mg tablet 90 t* 3 04/12/2017 05/02/2018 Route: ORAL Sig: Take 1 tablet by mouth once daily. For cholesterol. Disc: Reason for discontinue is not on file. metroNIDAZOLE 1 % gel 1 Tu* 5 09/21/2014 05/02/2018 Route: TOPICAL Sig: Apply 1 application to affected area twice daily. Disc: Reason for discontinue is not on file. Encounter Status:Closed by JAMES SHARIF III, MD on 05/02/18 MICROALB:CREAT Collected: 04/19/2018 Status: F Source: [facility] UR 7:33 AM [facility] REPOSITORY TYPE CODE TESTS RESULT OUT OF RANGE REFERENCE UNITS LAB L501.1200 NO RANGE EST. mg/dL Normal UR CREAT 145.00 LAB L502.0500 NO RANGE EST. mg/L Normal 59.7 MICROALBUMIN ,UR LAB L502.0600 <30 mg/g CRE mg/g CRE High 41.2 MALB:CREAT Performed By: #### L502.0250 #### [facility] [address] [place], [place], [id number] BASIC METABOLIC Collected: 04/19/2018 Status: F Source: [place] [facility] ([facility]) 7:33 AM [facility] REPOSITORY TYPE CODE TESTS RESULT OUT OF RANGE REFERENCE UNITS LAB L501.0100 74-106 mg/dL High GLU 142 Result Comment: Fasting Glucose result greater than or equal to 126 mg/dL suggests DIABETES MELLITUS per A.D.A. criteria. Please note revised GLUCOSE reference range effective 2017. LAB L501.1000 7-18 mg/dL Normal BUN 17 LAB L501.1100 0.70-1.30 mg/dL Normal CREAT,SERUM 0.94 Result Comment: The validity of the calculated GFR AND GFRAA in patients over 70 years has not been determined. Clinical correlation is essential. LAB L501.1110 >60 mL/min Normal EST GFR 86 Result Comment: Non- GFR Calc LAB L501.1115 >60 mL/min Normal EST GFR - AA 104 Result Comment: GFR Calc LAB L501.1300 10-20 RATIO Normal BUN/CRE 18.1 LAB L501.2200 8.5-10.1 mg/dL CA Normal 8.8 LAB L501.5300 136-145 mmol/L NA Normal 140 LAB L501.5600 3.5-5.1 mmol/L K Normal 4.2 LAB L501.5900 98-107 mmol/L CL Normal 100 LAB L501.6100 21.0-32.0 mmol/L Normal CO2 31.0 LAB L501.6200 5-15 Normal GAP 9 Performed By: #### L500.2500, L500.4100, L501.9910 #### [facility] [address] [place], [address] LIPID PROFILE Collected: 04/19/2018 Status: F Source: [place] 7:33 AM [facility] REPOSITORY TYPE CODE TESTS RESULT OUT OF RANGE REFERENCE UNITS LAB L501.4900 200 mg/dL Normal CHOL 115 Result Comment: <200 mg/dL Desirable 200-240 mg/dL Borderline >240 mg/dL High Risk LAB L501.5000 mg/dL Normal TRIG 76 Result Comment: The drugs N-Acetylcysteine and Metamizole may falsely depress this assay. Serum Triglycerides Reference Interval Normal <150 mg/dL Borderline high 150 - 199 mg/dL High 200 - 499 mg/dL Very High > or = 500 mg/dL LAB L501.6400 mg/dL Normal HDL 45 Result Comment: The drugs N-Acetylcysteine and Metamizole may falsely depress this assay. Reference Range HDL <40 mg/dL Low HDL Cholesterol HDL >or= 60 mg/dL High HDL Cholesterol LAB L501.6500 0-130 mg/dL Normal LDL 55 LAB L501.6600 5-40 mg/dL Normal VLDL 15 Performed By: #### L500.2500, L500.4100, L501.9910 #### [facility] [address] [place], [address] PSA,TOTAL - ANNUAL Collected: 04/19/2018 Status: F Source: [place] SCREEN 7:33 AM [facility] REPOSITORY TYPE CODE TESTS RESULT OUT OF RANGE REFERENCE UNITS LAB L501.9910 0.00-4.00 ng/mL Normal PSA,TOT 0.61 SCREEN Result Comment: This test was performed using the TPSA assay method for the [employer] chemistry system. Values obtained with different assay methods cannot be used interchangably. When changing PSA assays in the course of monitoring a patient, additional sequential testing should be carried out to confirm baseline values. Performed By: #### L500.2500, L500.4100, L501.9910 #### [facility] [address] [place], [address] CBC-COMPLETE BLOOD CNT Collected: 04/19/2018 Status: F Source: [place] NO DIFF 7:33 AM [facility] REPOSITORY TYPE CODE TESTS RESULT OUT OF RANGE REFERENCE UNITS LAB L100.1000 4.4-11.0 K/mm3 Normal WBC 6.0 LAB L100.1200 4.6-6.2 M/mm3 Normal RBC 5.22 LAB L100.1300 13.0-16.5 g/dl Normal HGB 14.7 LAB L100.1400 40-54 % Normal HCT 45.0 LAB L100.1500 80-94 fL Normal MCV 86.2 LAB L100.1600 27.0-32.0 pg Normal MCH 28.2 LAB L100.1700 32-36 g/gl Normal MCHC 32.7 LAB L100.1810 11.6-14.6 % Normal RDW CV 13.0 LAB L100.1820 35.1-43.9 fl Normal RDW SD 41.2 LAB L100.1900 150-450 K/mm3 Normal PLT 205 LAB L100.2000 6.2-12.0 fl Normal MPV 10.4 Performed By: #### L100.0500 #### [facility] [address] [place], [address] HEMOGLOBIN A1C Collected: 04/19/2018 Status: F Source: [place] 7:33 AM [facility] REPOSITORY TYPE CODE TESTS RESULT OUT OF RANGE REFERENCE UNITS LAB L501.9985 4.2-6.3 % High HGB A1C 7.0 Performed By: #### L501.9985 #### [facility] [address] [place], [address] VITAMIN B12 Collected: 04/19/2018 Status: F Source: [place] 7:33 AM [facility] REPOSITORY TYPE CODE TESTS RESULT OUT OF RANGE REFERENCE UNITS LAB L503.0105 211-911 pg/mL Normal Vitamin B12 854 Performed By: #### L503.0105 #### [facility] [address] [place], [address] CNPTOUTREACH Observed: 04/15/2018 Status: COMPLETED Source: [place] 12:00 AM [facility] REPOSITORY Patient Outreach (FAMPST) JASWANT AGUIAR ([id number]) 1955 M Date Time Provider Department 04/15/18 JAMES SHARIF IIIPST During your visit today, we recorded the following information about you: Allergies As of Date: 04/15/2018 Noted Allergy Reaction LISINOPRIL 10/30/2007 3 - Cough Date Reviewed: 08/19/2017 [facility]: [facility] [place] - Fully Assessed Visit Diagnosis:Medication management [Z79.899] Prescriptions as of 04/15/2018 Sig: ALBUTEROL SULFATE CONCENTRATE* Inhale 0.5 mL as instructed o* ALBUTEROL SULFATE HFA 90 MCG/* Inhale 2 Puffs as instructed * BENZONATATE 100 MG CAPSULE Take 1-2 capsules by mouth th* Patient not taking: Reported on 05/02/2018 X METFORMIN 500 MG TABLET Take 1 tablet by mouth twice * X HYDROCHLOROTHIAZIDE 25 MG TAB* Take 1 tablet by mouth once d* X AMLODIPINE 10 MG TABLET Take 1 tablet by mouth once d* X LOSARTAN 100 MG TABLET Take 1 tablet by mouth once d* X ATORVASTATIN 20 MG TABLET Take 1 tablet by mouth once d* X METRONIDAZOLE 1 % TOPICAL GEL Apply 1 application to affect* ASPIRIN 81 MG TABLET Take 1 tablet by mouth once d* OMEGA-3 FATTY ACIDS-VITAMIN E* Take 1 capsule by mouth once * MULTI-VITAMIN ORAL Take by mouth. MISCELLANEOUS MEDICAL SUPPLY * 20-30 compression: put on blaire* Problem List As Of Date 04/15/2018 Noted Resolved Internal hemorrhoids without mention of complic*INVALID FOR*09/21/2014 Venous (peripheral) insufficiency [I87.2] INVALID FOR* External hemorrhoids without mention of complic*INVALID FOR*09/21/2014 GENERAL OSTEOARTHROSIS [M15.9] INVALID FOR* Sprain of lumbosacral (joint) (ligament) [S33.5*INVALID FOR*09/21/2014 Open wound of knee, leg (except thigh), and ank*INVALID FOR*09/21/2014 Chest pain, unspecified [R07.9] INVALID FOR*09/21/2014 Esophageal reflux [K21.9] INVALID FOR*09/21/2014 Calculus of gallbladder without mention of chol*INVALID FOR*09/21/2014 Cholecystitis, unspecified [K81.9] INVALID FOR*09/21/2014 Varicose veins of lower extremities with ulcer *INVALID FOR*09/21/2014 SLEEP APNEA NOS [G47.30] INVALID FOR* More... BENIGN HYPERTENSION [I10] INVALID FOR* History of colonic polyps [Z86.010] INVALID FOR* Obesity, Class III, BMI 40-49.9 (morbid obesity*INVALID FOR* Carpal tunnel syndrome on left [G56.02] INVALID FOR*09/21/2014 Hyperlipidemia with target LDL less than 100 [E*INVALID FOR* Stasis dermatitis [I87.2] INVALID FOR* Varicosities of leg [I83.90] INVALID FOR* Type 2 diabetes mellitus without complication, *INVALID FOR* Carpal tunnel syndrome, left [G56.02] INVALID FOR* Encounter Status:Closed by EPIC, PRODUSER on 05/16/18 MASSAGE THERAPY Observed: 09/20/2017 Status: F Source: [place] EVALUATION 12:42 PM [facility] REPOSITORY [facility] 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 He was referred to the [facility] for a massotherapy evaluation by Dr Sharif with the diagnosis of back and shoulder pain.He reports today with the symptoms of having neck pain that goes into his shoulder. He also reports that he has been having low back pain. Due to the patients job he gets a lot of pain within his right hand. Objective: Upon observation I found that the patient had extremely high tension in his neck and shoulders. He knots within in the muscles of his trapezius and rhomboid muscles. His right forearm flexors and extenders seemed to be very tight as well. His cervical through lumbar paraspinals were very tight and ropey. Assessment: I was able to achieve a moderate release overall and the patient reported that he felt much better after his treatment. Plan: The plan of care has been reviewed with the patient and he is to be seen on a monthly basis for a total of ten 1-hour sessions throughout the year 2017. Renee Taylor, LMT <Electronically signed by Renee Taylor > 09/20/17 1242 CC: James Sharif III, MD VIR[place] Signed For Medicare only, by signing this I certify the plan of care. Physicians Signature Date PROGRESS Observed: 08/19/2017 Status: COMPLETED Source: [place] 5:22 PM [facility] REPOSITORY HNO ID: [id number] Author: El (Medical Pathology Teacher) Gerardo Service: (none) Author Type: Nurse Practitioner Type: Progress Notes Filed: 08/20/2017 5:03 PM Note Text: HPI Patient is a 61 year old male here today with a 7 day history of nasal congestion and sinus pressure. States it is now in his chest and feels worse. Fever on and off. States last fever one day ago. OTC medication with little relief. Nothing makes it better or worse. States he is also concerns for a rash states the rash started with blisters on the left side. States painful. Review of Systems Constitutional: Positive for chills and malaise/fatigue. Negative for fever. HENT: Positive for congestion, ear pain and sore throat. Respiratory: Positive for cough. Negative for sputum production, shortness of breath and wheezing. Cardiovascular: Negative. Gastrointestinal: Negative for nausea and vomiting. Musculoskeletal: Negative for myalgias. Skin: Positive for rash. Neurological: Positive for headaches (sinus pressure). Endo/Heme/Allergies: Negative for environmental allergies. All other systems reviewed and are negative. PAST MEDICAL HISTORY Diagnosis Date - Calculus of gallbladder without mention of cholecystitis or obstruction 03/08/2005 - Chest pain, unspecified 03/08/2005 - Cholecystitis, unspecified 03/08/2005 - Chronic venous insufficiency 11/16/2014 See scanned documents - [facility] - Diabetes mellitus (HCC) 07/14/2010 - Esophageal reflux 03/08/2005 - External hemorrhoids without mention of complication 03/08/2005 - Generalized osteoarthrosis, unspecified site 03/08/2005 - Hyperlipidemia LDL goal < 100 07/14/2010 - Internal hemorrhoids without mention of complication 03/08/2005 - Obesity 07/06/2010 - Open wound of knee, leg (except thigh), and ankle, without mention of complication 03/08/2005 - Sprain of lumbosacral (joint) (ligament) 03/08/2005 - Stasis dermatitis 07/07/2011 - Unspecified venous (peripheral) insufficiency 03/08/2005 - 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) 03/08/2005 PAST SURGICAL HISTORY Procedure Laterality Date - COLONOS W/REM POLYP SNARE 04-23-13 - COLONOSCOP W/ OR W/O [facility] SPEC 11-21-07 - DEBRIDE SKIN AND SUBQ TISSU Left 06/27/15 Debridement UIQ left breast infected glenny cyst - ENDOVENOUS LASER, 1ST VEIN 11/16/2014 [facility] - see scanned documents - ENDOVENOUS LASER, 1ST VEIN 06/05/2015 [facility] - right great saphenous vein - REMOVAL GALLBLADDER 2002 Cholecystectomy - REVISE MEDIAN N/CARPAL TUNNEL SURG Carpal tunnel decomp, right - STRESS TEST EXERCISE 09/21/2013 Exercise Myocardial Perfusion Stress test - TONSILLECTOMY HX under age 12 ALLERGIES Lisinopril MEDICATIONS metFORMIN (GLUCOPHAGE) 500 mg tablet Take 1 tablet by mouth twice daily with meals. . hydroCHLOROthiazide (HYDRODIURIL, ESIDRIX) 25 mg tablet Take 1 tablet by mouth once daily. amLODIPine (NORVASC) 10 mg tablet Take 1 tablet by mouth once daily. losartan (COZAAR) 100 mg tablet Take 1 tablet by mouth once daily. atorvastatin (LIPITOR) 20 mg tablet Take 1 tablet by mouth once daily. For cholesterol. metroNIDAZOLE 1 % gel Apply 1 application to affected area twice daily. Aspirin 81 mg tab Take 1 tablet by mouth once daily. Take with food. [place]-3 Fatty Acids-Vitamin E (FISH OIL) 1,000 mg cap Take 1 capsule by mouth once daily. MULTI-VITAMIN ORAL Take by mouth. Miscellaneous Medical Supply (COMPRESSION STOCKINGS) [facility] 20-30 compression: put on daily before rising from bed albuterol (PROVENTIL) 5 mg/mL nebu Inhale 0.5 mL as instructed one time only for 1 dose. 1 DOSE NOW - BACK OFFICE. PLACE 0.5 ML PER DROPPER AND 2.5 ML OF NORMAL SALINE INTO RESERVOIR. albuterol HFA (PROVENTIL HFA, VENTOLIN HFA) 90 mcg/actuation inhaler Inhale 2 Puffs as instructed every 4 hours as needed. predniSONE (DELTASONE) 20 mg tablet Take 1 tablet by mouth twice daily for 5 days. doxycycline (VIBRA-TABS) 100 mg tablet Take 1 tablet by mouth twice daily for 10 days. valACYclovir (VALTREX) 1 gram tab Take 1 tablet by mouth three times daily for 7 days. benzonatate (TESSALON PERLE) 100 mg capsule Take 1-2 capsules by mouth three times daily as needed. FAMILY HISTORY Problem Relation Age of Onset - Heart Mother CHF, DM - Diabetes Mother - Cancer Father lung - Hypertension Sister - Hypertension Brother - COPD Brother Social History Substance Use Topics - Smoking status: Former Smoker Packs/day: 0.50 Years: 30.00 Types: Cigarettes Quit date: 01/15/2010 - Smokeless tobacco: Former User Quit date: 05/03/2011 - Alcohol use Yes BP 128/80 Pulse 61 Temp 36.9 ?C (98.4 ?F) (Tympanic) Resp 17 Wt (!) 146.7 kg (323 lb 6.4 oz) SpO2 94% BMI 43.56 kg/m2 Physical Exam Constitutional: He is oriented to person, place, and time and well-developed, well-nourished, and in no distress. Vital signs are normal. Mildly ill. HENT: Head: Normocephalic and atraumatic. Right Ear: Tympanic membrane, external ear and ear canal normal. Left Ear: Tympanic membrane, external ear and ear canal normal. Nose: Mucosal edema and rhinorrhea present. Right sinus exhibits maxillary sinus tenderness and frontal sinus tenderness. Left sinus exhibits maxillary sinus tenderness and frontal sinus tenderness. Mouth/Throat: Uvula is midline, oropharynx is clear and moist and mucous membranes are normal. No oropharyngeal exudate, posterior oropharyngeal edema or posterior oropharyngeal erythema. Neck: Neck supple. Cardiovascular: Normal rate, regular rhythm and normal heart sounds. Pulmonary/Chest: Effort normal and breath sounds normal. He has no wheezes. He has no rales. Bilateral wheezes noted through out. diminished Air exchange noted at the bases. SpO2 94%. In office Albuterol treatment given. Improved air exchange and SpO2 98% Lymphadenopathy: Head (right side): No submental, no submandibular and no tonsillar adenopathy present. Head (left side): No submental, no submandibular and no tonsillar adenopathy present. He has no cervical adenopathy. Submandibular fullness. Neurological: He is alert and oriented to person, place, and time. Skin: Skin is warm and dry. Skin: [place], warm, dry, good turgor, vesicles on an erythematous base clustered vesicles in a dermatomal distribution Psychiatric: Affect normal. Nursing note and vitals reviewed. ASSESSMENT/PLAN: 1. Bacterial sinusitis - ICD9: 473.9, 041.9, ICD10: J32.9, B96.89 (primary diagnosis) - Will begin treatment with as per antibiotic as written, see orders - Supportive care with plenty of fluids, rest, and analgesia prn. - Follow up in 3-5 days if symptoms persist or worsen. - DOXYCYCLINE HYCLATE 100 MG TABLET - BENZONATATE 100 MG CAPSULE 2. Herpes zoster with complication - ICD9: 053.8, ICD10: B02.8 - Valtrex - Skin care discussed - PREDNISONE 20 MG TABLET - VALACYCLOVIR 1 GRAM TABLET 3. Wheeze - ICD9: 786.07, ICD10: R06.2 - Will give oral steroid (see orders) - Albuterol Inhaler as directed (see orders) - OTC Mucinex to thin secretions - OTC cold and cough medications prn - Fluids and rest - Humidifier to the environemnt - Vicks Vapo-Rubs PRN - Deep breathing exercises discussed - Follow with PCP in 2-3 days if no improvement or fever begins - ALBUTEROL SULFATE CONCENTRATE 5 MG/ML(0.5 %) SOLUTION FOR NEBULIZATION - ALBUTEROL SULFATE HFA 90 MCG/ACTUATION AEROSOL INHALER - INHALATIONAL SPACING DEVICE - PREDNISONE 20 MG TABLET Total time evaluating and treating patient >25 minutes Prescription instructions reviewed with patient as applicable. Patient advised if symptoms do not improve or if symptoms worsen sooner, to contact their primary care physician. Potential red flag symptoms discussed with the patient. Reviewed appropriate action plan to take if red flag symptoms occur. Patient agreeable to treatment plan. El Carrillo CNP CNCO Observed: 08/19/2017 Status: COMPLETED Source: [place] 12:00 AM [facility] REPOSITORY Letter Text [facility] Department of Urgent Care Gerardo Gallegos CNP [address], [place] [address] 08/19/2017 TO WHOM IT MAY CONCERN: This is to confirm that Jaswant Elena Aguiar had an appointment and was seen at the [facility] in the Department of Urgent Care by Gerardo Gallegos CNP on 08/19/2017 and may return to work on 08/21/2017. Sincerely yours, Gerardo Gallegos CNP DISCHARGE SUMMARY Observed: 07/12/2017 Status: F Source: [facility] 3:06 PM [facility] REPOSITORY [facility] Medical Records Department [address] [place] [address] Discharge Summary 07/12/17 1500 MR#: [id number] Acct: [id number] Name: JASWANT AGUIAR Rep #: [id number] : 1955 61 From: Renee Taylor PCP: James Sharif III, MD Status: REG RCR Y Location: [facility] Massage Therapy Discharge Summary: This patient was seen for massotherapy evaluation on: 10/17/16 Diagnosis: Chronic Neck Pain The patient had 9 sessions of massotherapy. The goals for treatment were met. Last DOS: 07/06/17 At this time I am discharging the patient from our care at the [facility]. Renee Taylor, T 07/12/17 1506 <Electronically signed by Renee Taylor > Date Renee Taylor Cosigner Signature (if applicable): Date CC: Renee Taylor; James Sharif III, MD Signed ALLERGIES ALLERGIES DATE TYPE / CODE NAME / CODE REACTION SEVERITY SOURCE 06/13/2018 Drug lisinopril/[id number] Other Unknown [place] Allergy/416 0658(RXNORM) [facility] 299174([facility] ED CT) Repository 10/30/2007 DRUG LISINOPRIL COUGH [facility] INGREDI/[address] [address]([facility] ED CT) ENCOUNTERS ENCOUNTERS ADMIT/DISCHARGE ACCOUNT ADMITTING ENCOUNTER LOCATION SOURCE NUMBER CLASS 06/13/2018 [id number] Ambulatory BMSBuilding:B Ravi MS.CF.[facility] Repository 06/13/2018/06/13/20 [id number] Ambulatory Ravi [place] [facility] Hospital ing:ENRoom: Repository AC11 05/14/2018/05/14/20 [id number] Ambulatory BMSBuilding:B Ravi 18 MS.[facility] Repository 05/02/2018 [id number] [facility] Repository 05/02/2018/05/05/20 [id number] Ambulatory [address] Repository 04/19/2018 [id number] [facility] Repository 08/19/2017/08/21/19 [id number] Ambulatory [address] Repository 07/06/2017/07/06/20 [id number] [facility] [address] [facility] ing:MASS Repository PAYERS PAYERS ENCOUNTER GUARANTOR PAYER SUBSCRIBER SOURCE 06/13/2018 JASWANT Parker Primary Insurance:[facility] JODEE [place] [id number] [facility] CURTISSDOB: [facility] [id number] Number: Repository [address]Wbs: 330 [id number] [phone] () Date:3906-82-42[address] [address], [place] [address]NP: CHECK WEBSITE 06/13/2018 Secondary NOT GIVENUNK Ravi Insurance:SELF PAY [facility] Number: Effective Repository Date:2018-06-13 06/13/2018 JASWANT Parker [facility] 8900[place] Number: Repository [address]Ewa: 330 [id number] [phone] () Date:9249-08-65[address] [address], [place] [address]FI: CHECK WEBSITE 06/13/2018 Secondary NOT GIVENUNK [place] Insurance:SELF PAY [facility] Number: Effective Repository Date:2018-05-19 05/14/2018 JASWANT E Primary Insurance:[facility] Susie [place] [id number] [employer] CurtissDOB: [facility] [id number][facility] [place] Number: Repository [address]Tfh: 330 [id number] [phone] (HP) Date:3889-25-50[address] [address]wl[place], [place] [address]LP: CHECK WEBSITE 05/14/2018 Secondary NOT GIVENUNK Ravi Insurance:SELF PAY [facility] Number: Effective Repository Date:2018-05-14 05/02/2018 JASWANT E Primary Insurance:[facility] Susie Hamiltonoster [id number] [employer] CurtissDOB: [facility] [id number]. [facility], [place] Number: Repository [address]Tdk: 330 [id number] [phone] (HP) Date:0062-29-75[address] [address], [place] [address]RT: CHECK WEBSITE 05/02/2018 Secondary NOT GIVENUNK [place] Insurance:SELF PAY [facility] Number: Effective Repository Date:2017-08-12 04/19/2018 JASWANT E Primary Insurance:[facility] Susie Hamiltonoster [id number] [employer] CurtissDOB: [facility] [id number] [facility], [place] Number: Repository [address]Tuu: 330 [id number] [phone] (HP) Date:1173-87-11Hc [address] [address], [place] [address]YG: CHECK WEBSITE 04/19/2018 Secondary NOT GIVENUNK Ravi Insurance:SELF PAY [facility] Number: Effective Repository Date:2018-04-19 07/06/2017 Jaswant E Primary Insurance:[facility] Susie Pelaez [id number] [employer] CurtissDOB: [facility] [id number]. [facility], [place] Number: Repository [address]Lon: 330 [id number] [phone] (HP) Date:8597-23-29Ef [address] [address], [place] [address]WH: CHECK WEBSITE 07/06/2017 Secondary NOT GIVENUNK [place] Insurance:SELF PAY [facility] Number: Effective Repository Date:2016-10-05
== END 2018-06-13 08:22 | disposition home or self-care (01) ==
LOC: EN 06:01 → AC 06:02
PROVIDERS: Family Provider Family Medicine; PCP Family Medicine; Referring Provider Surgery; Visit Provider Surgery
PROC: 0DJD8ZZ Inspection of Lower Intestinal Tract, Via Natural or Artificial Opening Endoscopic (ICD-10-PCS; CPT 45378; principal; 2018-06-13 06:55)
DX: Z12.11 Encounter for screening for malignant neoplasm of colon (principal); Z86.010 Personal history of colon polyps; Z79.82 Long term (current) use of aspirin; Z87.891 Personal history of nicotine dependence; K57.30 Diverticulosis of large intestine without perforation or abscess without bleeding; D12.2 Benign neoplasm of ascending colon; D12.4 Benign neoplasm of descending colon; Z79.899 Other long term (current) drug therapy
CPT/HCPCS: 45380; 82962; 88305; 99152; 99153; J7120

== ENCOUNTER 2018-07-05 08:15 | Outpatient (RCR) | payer OTHER, SELFPAY ==
--- NOTE | 2017-09-06 09:54 | MASS.EVAL ---
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 He was referred to the [facility] for a massotherapy evaluation by Dr De Anda with the diagnosis of back and shoulder pain.He reports today with the symptoms of having neck pain that goes into his shoulder. He also reports that he has been having low back pain. Due to the patients job he gets a lot of pain within his right hand. Objective: Upon observation I found that the patient had extremely high tension in his neck and shoulders. He knots within in the muscles of his trapezius and rhomboid muscles. His right forearm flexors and extenders seemed to be very tight as well. His cervical through lumbar paraspinals were very tight and ropey. Assessment: I was able to achieve a moderate release overall and the patient reported that he felt much better after his treatment. Plan: The plan of care has been reviewed with the patient and he is to be seen on a monthly basis for a total of ten 1-hour sessions throughout the year 2017. Renee Taylor LMT
--- NOTE | 2017-09-06 10:05 | MASS.EVAL_ITS ---
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 He was referred to the [facility] for a massotherapy evaluation by Dr De Anda with the diagnosis of back and shoulder pain.He reports today with the symptoms of having neck pain that goes into his shoulder. He also reports that he has been having low back pain. Due to the patients job he gets a lot of pain within his right hand. Objective: Upon observation I found that the patient had extremely high tension in his neck and shoulders. He knots within in the muscles of his trapezius and rhomboid muscles. His right forearm flexors and extenders seemed to be very tight as well. His cervical through lumbar paraspinals were very tight and ropey. Assessment: I was able to achieve a moderate release overall and the patient reported that he felt much better after his treatment. Plan: The plan of care has been reviewed with the patient and he is to be seen on a monthly basis for a total of ten 1-hour sessions throughout the year 2017. Renee Taylor LMT
--- NOTE | 2018-07-11 16:09 | DS.PCM_ITS ---
Massage Therapy Discharge Summary: Discharge Date: 07/11/2018 Jaswant was seen for a massotherapy evaluation on 08/28/2017 with the diagnosis of shoulder and back pain. He was treated with eight sessions of massage therapy consisting of deep pressure soft tissue techniques, myofascial release and trigger point compression to his cervical, thoracic, lower back, and upper extremities. Jaswant responded well to the therapy by reporting decreased tension and pain throughout his head, neck, shoulders, lower back and forearm muscles. His goals for therapy were met throughout the treatment sessions. At this time this patient is being discharged from our care at [facility] facility.
== END 2018-07-05 19:00 | disposition home or self-care (01) ==
LOC: MASS 08:15
PROVIDERS: Family Provider Family Medicine; PCP Family Medicine; Visit Provider Family Medicine
DX: M54.9 Dorsalgia, unspecified (principal); M25.519 Pain in unspecified shoulder
CPT/HCPCS: 97124

== ENCOUNTER → 2018-08-11 14:47 | Outpatient (CLI) | payer OTHER, SELFPAY ==
[2018-08-11 14:37] VITALS: BMI 41.5
--- NOTE | 2018-08-11 14:48 | RAD_ITS ---
STUDY: X-RAY CHEST REASON FOR EXAM: Male, 62 years old. Shortness of breath TECHNIQUE: Frontal and lateral views of the chest COMPARISON: None. FINDINGS: The lungs are clear. There are no pleural effusions. There is no pneumothorax. The heart is normal in size. The visualized osseous structures are within normal limits. RAD/Chest PA and Lateral IMPRESSION: No acute thoracic pathology. Electronically Signed: Godfrey Pierce, at 15:12 EST Tel , Service support ,
== END ==
PROVIDERS: Family Provider Family Medicine; PCP Family Medicine; Referring Provider Physician Assistant Surgical; Visit Provider Physician Assistant Surgical
DX: R06.02 Shortness of breath (principal)
CPT/HCPCS: 71046

== ENCOUNTER → 2018-11-21 13:35 | Outpatient (CLI) | payer OTHER, SELFPAY ==
[2018-08-11 14:37] VITALS: BMI 41.5
--- NOTE | 2018-11-21 13:38 | RAD_ITS ---
STUDY: X-RAY - LEFT FOOT CLINICAL: Male, 62 years old. Heel pain TECHNIQUE: 3 view(s) of the foot. COMPARISON: None. FINDINGS: There are spurs from the posterior and plantar surfaces of the os calcis and a Taylor's deformity but no acute fractures or dislocations. Minimal degenerative change at the first MTP joint. Electronically Signed: Jaylan Stokes MD at 5:17 EDT Tel , Service support , RAD/Foot min 3 Views
== END ==
PROVIDERS: Family Provider Family Medicine; PCP Family Medicine; Referring Provider Podiatrist; Visit Provider Podiatrist
DX: M76.62 Achilles tendinitis, left leg (principal)
CPT/HCPCS: 73630

== ENCOUNTER 2018-11-22 08:00 | Outpatient (RCR) | payer OTHER, SELFPAY ==
[2018-06-13 06:27] VITALS: BMI 41.5
--- NOTE | 2018-08-04 16:59 | MASS.EVAL ---
Massage Therapy Evaluation: Initial Evaluation Date: 08/02/2018 SUBJECTIVE: Jaswant is a 62 year old male who was referred to the [facility] for a massotherapy evaluation by Dr. De Anda with the diagnosis of neck and Shoulder strain, as well as trigger finger. Jaswant presents today with the symptoms of tension and pain in his neck and shoulders. He also presents of having pain in fingers and forearms. He reports that he has been experiencing numbness in his left hand and fingers. OBJECTIVE: Upon observation Jaswant has slight head forward in sitting and standing postures. After examination and palpation I found him to have high muscle tension with tenderness and myofascial restrictions in his sub occipitals, levator scapulae, trapezius, rhomboids, scalenes, and thoracic paraspinals. 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 I also found his cervical through lumbar paraspinals were very tight with fascial restrictions, tender points and trigger points. The first treatment consisted of a one hour massage to his upper body with myofascial release, muscle stripping, trigger point compression techniques, and cervical manual traction. ASSESSMENT: I feel that Jaswant is a good candidate for massotherapy at this time. He had a favorable response to the first treatment with reduction in his muscle aches, pain and tension. He also had improvement in his cervical flexibility and low back flexibility, as well as better movement in his fingers. PLAN: The plan of care was reviewed with the patient. The patient is to be seen on an as needed basis for a total of ten sessions with the recommendation of once every month for a one hour treatment.
--- NOTE | 2018-08-04 17:04 | MASS.EVAL_ITS ---
Massage Therapy Evaluation: Initial Evaluation Date: 08/02/2018 SUBJECTIVE: Jaswant is a 62 year old male who was referred to the [facility] for a massotherapy evaluation by Dr. De Anda with the diagnosis of neck and Shoulder strain, as well as trigger finger. Jaswant presents today with the symptoms of tension and pain in his neck and shoulders. He also presents of having pain in fingers and forearms. He reports that he has been experiencing numbness in his left hand and fingers. OBJECTIVE: Upon observation Jaswant has slight head forward in sitting and standing postures. After examination and palpation I found him to have high muscle tension with tenderness and myofascial restrictions in his sub occipitals, levator scapulae, trapezius, rhomboids, scalenes, and thoracic paraspinals. 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 I also found his cervical through lumbar paraspinals were very tight with fascial restrictions, tender points and trigger points. The first treatment consisted of a one hour massage to his upper body with myofascial release, muscle stripping, trigger point compression techniques, and cervical manual traction. ASSESSMENT: I feel that Jaswant is a good candidate for massotherapy at this time. He had a favorable response to the first treatment with reduction in his muscle aches, pain and tension. He also had improvement in his cervical flexibility and low back flexibility, as well as better movement in his fingers. PLAN: The plan of care was reviewed with the patient. The patient is to be seen on an as needed basis for a total of ten sessions with the recommendation of once every month for a one hour treatment.
--- NOTE | 2019-05-12 09:17 | MASS.DISCH ---
Massage Therapy Discharge Summary: Discharge Date: 05/12/2019 Jaswant was seen for a massotherapy evaluation on 08/02/2018 with the diagnosis of neck, back and shoulder strain. He was treated with five sessions of massage therapy consisting of moderate pressure soft tissue techniques, myofascial release and trigger point compression to his cervical, thoracic, lower back, and upper extremities. Jaswant responded well to the therapy by reporting decreased tension and pain throughout his head, neck, shoulders, lower back and arms. His goals for therapy were met throughout the treatment sessions. At this time this patient is being discharged from our care at [facility] facility. Renee Taylor LMT
== END 2018-11-22 19:00 | disposition home or self-care (01) ==
LOC: MASS 08:00
PROVIDERS: Family Provider Family Medicine; PCP Family Medicine; Referring Provider Family Medicine; Visit Provider Family Medicine
DX: S16.1XXD Strain of muscle, fascia and tendon at neck level, subsequent encounter (principal); S46.919D Strain of unspecified muscle, fascia and tendon at shoulder and upper arm level, unspecified arm, subsequent encounter; M65.30 Trigger finger, unspecified finger
CPT/HCPCS: 97124

== ENCOUNTER → 2018-12-06 07:12 | Outpatient (CLI) | payer OTHER, SELFPAY ==
[2018-08-11 14:37] VITALS: BMI 41.5
[2018-12-06 08:25] LABS: AST(SGOT) 17 U/L (15-37); Alanine Aminotransfer ALT/SGPT 28 U/L (16-61); Albumin, Serum 3.7 g/dL (3.2-5.0); Alkaline Phosphatase 48 U/L (45-117); Anion Gap 4 (5-15); BUN 17 mg/dL (7-18); Calcium,Total 8.5 mg/dL (8.5-10.1); Chloride 105 mmol/L (98-107); EST Glomerular Filtration Rate 91 mL/min (>60); Est Glom Filt Rate - Afr Amer 110 mL/min (>60); Globulin 3.6 g/dL (2.2-4.2); Glucose 130 mg/dL (74-106); Potassium 4.4 mmol/L (3.5-5.1); Protein, Total 7.3 g/dL (6.4-8.2); Sodium Level 140 mmol/L (136-145)
[2018-12-06 08:32] LABS: Hemoglobin A1c 6.9 % (4.2-6.3)
== END ==
PROVIDERS: Family Provider Family Medicine; PCP Family Medicine; Referring Provider Family Medicine; Visit Provider Family Medicine
DX: I10 Essential (primary) hypertension (principal); E11.9 Type 2 diabetes mellitus without complications
CPT/HCPCS: 36415; 80053; 83036

== ENCOUNTER → 2019-06-12 07:30 | Outpatient (CLI) | payer MEDICARE, OTHER, SELFPAY ==
[2019-06-08 14:51] VITALS: BMI 41.5
--- NOTE | 2019-06-12 07:31 | CT_ITS ---
STUDY: CT PELVIS WITH CONTRAST REASON FOR EXAM: Male, 63 years old. He RADIATION DOSAGE (If Supplied By Facility): CTDIvol = ( 28.21 ) mGy, DLP = ( 1106.19 ) mGycm TECHNIQUE: Transaxial imaging of the pelvis was performed without oral contrast. IV/Oral Isovue 370 100 was administered intravenously. Individualized dose optimization techniques were used for this CT. COMPARISON: None. FINDINGS: The urinary bladder is not distended with no obvious filling defect. Both kidneys are low in location with no abnormality otherwise detected. There is a right inguinal hernia that contains omentum without bowel loop entrapment. Sigmoid diverticulosis is noted without diverticulitis. The appendix is visualized and intact. The visualized bony structures including the hips are within normal limits. CT/Pelvis WITH IV Contrast IMPRESSION: Right inguinal hernia with omentum. Sigmoid diverticulosis Electronically Signed: Sanjay Blake, at 10:43 EST Tel , Service support ,
[2019-06-12 07:41] LABS: CREATININE FINGERSTICK 0.9 mg/dL (0.70-1.30); EGFR FINGERSTICK > 60.0000 mL/min (>60)
== END ==
PROVIDERS: Family Provider Family Medicine; PCP Family Medicine; Referring Provider Surgery; Visit Provider Surgery
DX: R19.09 Other intra-abdominal and pelvic swelling, mass and lump (principal); R10.9 Unspecified abdominal pain
CPT/HCPCS: 72193; Q9967

== ENCOUNTER 2019-07-02 10:29 | Day surgery (SDC) | payer MEDICARE, OTHER, SELFPAY ==
[2019-06-08 14:51] VITALS: BMI 41.5
[2019-06-17 16:12] VITALS: BMI 41.1
--- NOTE | 2019-07-01 07:36 | EKG12_ITS ---
Test Reason : PRE-OP Blood Pressure : / mmHG Vent. Rate : 058 BPM Atrial Rate : 058 BPM P-R Int : 158 ms QRS Dur : 094 ms QT Int : 430 ms P-R-T Axes : 056 021 023 degrees QTc Int : 422 ms Sinus bradycardia Otherwise normal ECG Confirmed by BRIAN NINO ([id number]), editor managing director CORRINE CHUN ([id number]) on 07/01/2019 11:07:32 AM Referred By: Kishore De Anda Confirmed By:BRIAN NINO
[2019-07-01 09:08] LABS: Hematocrit 44.7 % (40-54); Hemoglobin 14.5 g/dL (13.0-16.5); Mean Corp Hgb Conc 32.4 g/dL (32-36); Mean Corpuscular Hgb 28.4 pg (27.0-32.0); Mean Corpuscular Volume 87.5 fL (80-94); Mean Platelet Vol. 10.4 fl (6.2-12.0); Platelet Count 247 K/mm3 (150-450); RBC Distribution Width CV 12.4 % (11.6-14.6); RBC Distribution Width SD 39.7 fl (35.1-43.9); Red Blood Count 5.11 M/mm3 (4.6-6.2); White Blood Count 7.6 K/mm3 (4.4-11.0)
[2019-07-01 09:33] LABS: Anion Gap 6 (5-15); BUN 18 mg/dL (7-18); BUN/Creat Ratio 17.8 RATIO (10-20); Calcium,Total 8.8 mg/dL (8.5-10.1); Chloride 102 mmol/L (98-107); Creatinine, Serum 1.01 mg/dL (0.70-1.30); EST Glomerular Filtration Rate 79 mL/min (>60); Est Glom Filt Rate - Afr Amer 95 mL/min (>60); Glucose 136 mg/dL (74-106); Sodium Level 138 mmol/L (136-145)
[2019-07-02] VITALS (7 sets, daily range): BP systolic 116–147; BP diastolic 68–75; PULSE 59–79; RESP 16; TEMP 36.3–36.8; O2SAT 91–98; BMI 43.9
[2019-07-02 11:45] LABS: Bedside Glucose 150 mg/dL (70-110)
--- NOTE | 2019-07-02 11:46 | HP.PCM_ITS ---
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 [Ecotrin] 81 mg PO DAILY@0800 11/09/14 [History Confirmed 08/11/18] Multivitamins,Therapeutic [Multivitamin] 1 tab PO DAILY 11/09/14 [History Confirmed 08/11/18] atorvastatin 10 mg tablet 10 mg PO DAILY 08/11/18 [History Confirmed 08/11/18] [facility] Medical History Diabetes (Acute) Hemorrhoids (Acute) HTN (hypertension) (Chronic) Surgical History History of vein stripping (Acute) Family History Father Cancer Mother Diabetes Social History (Updated 06/08/19 @ 15:16 by Kishore De Anda MD) Smoking Status: Former smoker alcohol intake: never HPI HPI HPI: MARY HOLDEN, is a 63 M who presents to the office today for surgical consultation regarding a possible right inguinal hernia. The patient has had a burning sensation in the right groin intermittently. It is worse with physical exertion. He was seen by his primary care physician Dr. James De Anda, III who was suspicious about a possible hernia. His most recent colonoscopy was June 13, 2018. 2 small tubular adenomas were removed per myself at that time. One in the proximal ascending colon and one in the descending colon. He did have diverticulosis noted. He denies bright red blood per rectum or melena. He has had progressive weight gain. He also is currently having problems with a left heel spur. He has not had any previous groin surgery. 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 The patient claims an intermittent new onset of a hissing sound in both ears over the past week HPI HPI HPI: MARY HOLDEN, is a 63 M who presents to the office today for Exam Const General: cooperative, comfortable, no acute distress Nutritional Appearance: obese morbidly obese Orientation: alert, awake, oriented x3 HENMT Head: normal to inspection Chest Chest palpation & inspection: normal inspection of the chest Resp Effort & Inspection: normal respiratory effort Auscultation: clear to auscultation bilaterally Cardio Rate: regular rate Rhythm: regular rhythm GI Palpation: soft Other: Overweight, I am not able to detect any internal organs secondary to body habitus. Very small umbilical hernia defect noted Other: Testicles are descended without mass. There is fullness in the proximal right scrotum which is tender to palpation. Difficult for me to appreciate whether this correlates with his groin or whether it is a separate lipoma/hydrocele. There is no similar finding on the left. Left groin is nontender solid and intact Skin Other: Multiple bilateral lower extremity superficial varicosities noted Neuro Cognition: normal cognition Extrem Other: Chronic venous stasis changes bilateral lower extremities Psych Affect: normal affect Assessment & Plan Problems 1. Right groin mass R19.09 2. Tinnitus of both ears H93.13 Plan Patient notes a hissing sound in both ears intermittently. This is new over the past week. I have recommended to the patient had in addition to blood pressure monitoring as noted below that he seek follow-up with ENT to help with evaluation. They concur and will follow through. His initial blood pressure on presentation was 171/85. That will be rechecked before departure. The patient's Susie is able to obtain home perform blood pressures which I have asked her to do 2-3 times daily and record. If the patient's blood pressure remains elevated then I have asked them to continue to follow with Dr. James De Anda, III regarding treatment options. The palpable right groin mass may indeed be an inguinal hernia. Not clear whether to cord lipoma or possibly a hydrocele. Body habitus does make examination difficult. I recommend a pelvic CT to help evaluate this area. I did discuss with the patient that if this is a inguinal hernia that I would likely offer him a laparoscopic right inguinal hernia repair with mesh. I did offer to him that both a laparoscopic and open repair at his current body weight of 312 pounds would be somewhat challenging. It is apparent however that with physical activity he is symptomatic on that right. He has had an opportunity to ask and have questions answered. I appreciate the ongoing opportunity of assisting with his surgical care. We will obtain imaging and provide him with follow-up recommendations. CC: Dr. James De Anda, III Kishore De Anda M.D., F.A.C.S. Orders Orders: Pelvis W/WO IV Contrast Today R19.09 Coding Level of Care Code 30367 Diagnoses Right groin mass R19.09 Tinnitus of both ears H93.13 ??Laterality: bilateral 06/08/19 1516 <Electronically signed by Kishore lara MD> Date _ Kishore De Anda MD Cosigner Signature: Date (if applicable) CC: James De Anda III, MD ~ CT imaging demonstrated a recurrent right inguinal hernia with significant omental involvement. I have discussed with the patient a laparoscopic repair of a recurrent right inguinal hernia with mesh. He is aware of the technique, benefits, risks, alternatives. No guarantees of success are being offered. He has been scheduled we will proceed as noted. Kishore De Anda M.D., F.A.C.S.
--- NOTE | 2019-07-02 11:49 | DCINST_ITS ---
Discharge Diet: Light diet - advance as tolerated - if you have questions about your diet instructions, please talk to you doctor. Discharge Activity: May Not Drive - for 1 week or while taking narcotic pain medicine. May shower in (days): 1 Lifting Restrictions: 10 pounds Call your doctor if your incision/area has: Continuous Slow Oozing, Sudden Increased Bleeding, Increased Pain/ Swelling, Increased Redness, Foul Smelling Discharge Call your doctor if you observe: Fever of 101 or Higher Suture Line Care: Avoid Pulling/Pushing, Avoid Pinching/Bending Additional Dressing/Incision Instructions:: Change or remove dressing in 4 days. Leave steri-strips in place for 1 week. Allergies/Adverse Reactions: Allergies lisinopril Adverse Reaction (Verified 06/29/19 13:51) Other Medications to take at Discharge Amlodipine [Norvasc] 10 mg PO DAILY 04/23/13 Hydrochlorothiazide [Hctz] 25 mg PO DAILY 04/23/13 Losartan Potassium [Cozaar] 100 mg PO DAILY 04/23/13 [place]-3 Fatty Acids [Fish Oil] 300 mg PO DAILY 04/23/13 Aspirin E.C. [Ecotrin] 81 mg PO DAILY@0800 11/09/14 Multivitamins,Therapeutic [Multivitamin] 1 tab PO DAILY 11/09/14 atorvastatin 10 mg tablet 20 mg PO DAILY 08/11/18 metFORMIN (XR) [Glucophage Xr] 1,000 mg PO BID 06/29/19 Primary Care Physician: James De Anda III, MD [Primary Care Provider] - Test Results: Test results from this visit will be discussed in further detail at your follow- up appointment, if applicable. Please Follow Up With: Kishore De Anda MD - [phone] When: Call to make an appointment to be seen in about 10 days.
[2019-07-02] MEDS: Bupivacaine Mpf 0.5% 30 ML VIAL (14:00)
--- NOTE | 2019-07-02 14:19 | OP.PCM_ITS ---
Problem List (1) Umbilical hernia Status: Acute Qualifiers: Obstruction and gangrene presence: without obstruction or gangrene Qualified Code(s): K42.9 - Umbilical hernia without obstruction or gangrene (2) Inguinal hernia Status: Acute Qualifiers: Obstruction and gangrene presence: without obstruction or gangrene Laterality: unilateral Recurrence: non-recurrent Qualified Code(s): K40.90 - Unilateral inguinal hernia, without obstruction or gangrene, not specified as recurrent Report of Operation Date of Procedure: 07/02/19 Pre-Operative Diagnosis: Indirect right inguinal hernia. Umbilical hernia Post-Operative Diagnosis: Large indirect right inguinal hernia with very large cord lipoma. Umbilical hernia Surgery/Procedure Performed:: Laparoscopic right inguinal herniorrhaphy with extra-large Bard 3D max mesh. Umbilical hernia with 6.4 cm ventralex mesh. Lot number [id number]. Reference #[id number]. Expiry date 03/11/2024. Lot number [id number]. Reference #[id number]. Expiry date 03/11/2021 Description of Surgical Findings:: Timeout and informed consent was obtained. 63-year-old gent was taken out from placement table underwent general endotracheal intubation anesthesia. Ancef 3 g given intravenously preoperatively. The abdomen sterilely prepped and draped. Vertical incision was made at the umbilicus sharp dissection carried down through the subcutaneous tissue umbilical hernia identified tissue around it was sharply dissected free holding sutures of 0 Vicryl placed varies needle inserted saline drop test performed the abdomen was insufflated with CO2 to a pressure of 12 mmHg pressure, trocar inserted 10 lap scope inserted no evidence of any trocar injuries. 5 mm ports were placed in the right left lower quadrant. The left groin was solid intact. There is evidence of an indirect lateral hernia but I did not see any omental involvement. An ilioinguinal nerve block was performed under laparoscopic control. 0.5% Marcaine was used as local ane sthetic throughout skin sites were pre-anesthetized throughout the procedure total 30 cc was used. The peritoneum superior lateral to the internal ring was incised on the right carried medially. The peritoneum was then tediously dissected free. Upon performing the dissection it became apparent that there was a very large cord lipoma. This required extensive tedious blunt dissection to withdraw from the inguinal canal and dissected free from the cord structures. Were needed hemostasis was obtained with hemo-lock clips. The direct space indirect space and femoral area was dissected free. [place] that I had excellent view of the structures. I selected a extra-large Bard 3D max right-sided mesh. I placed it into position carefully tacking the mesh inferiorly. My extensive dissection allowed for good placement of the mesh. It was secured laterally superiorly and medially with secure strap. Very nice positioning was achieved. The cord lipoma was then placed now adjacent to the mesh and followed by the peritoneum. The peritoneum was approximated with secure strap completely obliterating access to the mesh. Hemostasis was intact blood loss is been minimal trochars removed under visualization the abdomen was allowed to deflate of the CO2. Because of the patient's morbid obesity I elected to repair the umbilical hernia with mesh as well. A 6.4 similar ventral Yonathan product was inserted and unfolded. The tails were secured with 0 Nurolon. The fascia was closed transversely with simple sutures of 0 Nurolon. Good approximation and closure was achieved with a nice placement of the ventralex mesh. Incisions were closed with interrupted 4 Monocryl subdermal stitches. Steri- Strips Telfa and OpSite dressings applied sponge and instrument and needle counts were reported to surgically correct. Specimens none. Drains none. Blood loss minimal. Kishore De Anda M.D., F.A.C.S. Type of Anesthesia:: General Anesthesiologist: Sue Dyson
[2019-07-02 15:06] LABS: Bedside Glucose 193 mg/dL (70-110)
[2019-07-02] MEDS: Lactated Ringers 1,000 ML 100 ML IV (15:12)
== END 2019-07-02 17:35 | disposition home or self-care (01) ==
LOC: SDC 10:30 → AC 10:31
PROVIDERS: Family Provider Family Medicine; PCP Family Medicine; Referring Provider Surgery; Visit Provider Surgery
PROC: (CPT 49650; principal; 2019-07-02 12:15)
DX: K40.90 Unilateral inguinal hernia, without obstruction or gangrene, not specified as recurrent (principal); K42.9 Umbilical hernia without obstruction or gangrene; D17.6 Benign lipomatous neoplasm of spermatic cord; I10 Essential (primary) hypertension; E11.9 Type 2 diabetes mellitus without complications; E78.00 Pure hypercholesterolemia, unspecified; H93.13 Tinnitus, bilateral; E66.01 Morbid (severe) obesity due to excess calories; Z68.41 Body mass index [BMI] 40.0-44.9, adult; Z79.84 Long term (current) use of oral hypoglycemic drugs; Z79.82 Long term (current) use of aspirin; Z79.899 Other long term (current) drug therapy; Z87.891 Personal history of nicotine dependence
CPT/HCPCS: 00840; 49585; 49650; 36415; 80048; 82962; 85027; 93005; C1781; J7120; J2405

== ENCOUNTER 2020-09-27 15:03 | Outpatient (RCR) | payer MEDICARE, OTHER, SELFPAY ==
[2019-07-02 11:09] VITALS: BMI 43.9
[2020-09-27] MEDS: COVID-19 VACC, MRNA(PFIZER)/PF 30 MCG/0.3 ML SYRINGE IM (08:49)
[2020-10-18] MEDS: COVID-19 VACC, MRNA(PFIZER)/PF 30 MCG/0.3 ML SYRINGE IM (08:46)
== END 2020-12-20 23:59 ==
LOC: IMMUN 15:03
PROVIDERS: PCP Family Medicine; Referring Provider Family Medicine; Visit Provider Family Medicine
DX: Z23 Encounter for immunization (principal)
CPT/HCPCS: 0001A; 0002A; 91300

== ENCOUNTER 2023-07-11 07:25 | Day surgery (SDC) | payer MEDICARE, OTHER, SELFPAY ==
--- OUTSIDE RECORDS SUMMARY | 2023-07-11 07:30 | XMS RPT_ITS | CCD ---
Author Name Unknown Address [address] [place] [address] Organization [facility] Care Team Providers Care Physician Assistant Primary Care Name Role Phone Ean Sow MD Primary Care Provider EAN SOW Attending Unavailable EAN SOW Primary Care Unavailable VIVI EKLLY Referring Unavailable EAN SOW Primary Care Unavailable EAN SOW Referring Unavailable VIVI KELLY Attending Unavailable EAN SOW Primary Care Unavailable EAN SOW Referring Unavailable EAN SOW Primary Care Unavailable EAN SOW Primary Care Unavailable EAN SOW Primary Care Unavailable EAN SOW Primary Care Unavailable EAN SOW Referring Unavailable EAN SOW Primary Care Unavailable EAN SOW Referring Unavailable EAN SOW Primary Care Unavailable EAN SOW Referring Unavailable Allergies Allergy Classification Reported Allergen(s) Allergy Type Date of Onset Reaction(s) Facility (20 sources) Lisinopril; Translations: [LISINOPRIL] Drug Allergy 10-30-2007 Cough [facility] Work Phone: (5 sources) dapagliflozin; Translations: [DAPAGLIFLOZIN] Drug Allergy 05-16-2023 Other: See Comments [facility] Work Phone: Medications Current Medications Medication Drug Class(es) Dates Sig (Normalized) Sig (Original) cefadroxil 500 mg oral capsule (1 source) Cephalosporin Antibacterial Start: 11-29-2021 End: 12-06-2021 take 1 capsule by mouth twice daily cefADROxil (DURICEF) 500 mg capsule Take 1 capsule by mouth twice daily for 7 days. 14 capsule 0 11/29/2021 12/06/2021 Active Completed/Discontinued Medications Medication Drug Class(es) Dates Sig (Normalized) Sig (Original) amLODIPine 10 mg oral tablet (20 sources) Dihydropyridine Calcium Channel Sarah Start: 12-05-2022 End: 05-07-2023 take 1 tablet by mouth once daily amLODIPine (NORVASC) 10 mg tablet Indications: Essential hypertension, benign Take 1 tablet by mouth once daily. 90 tablet 1 05/07/2023 Active Problems Active Problems Problem Classification Problem Date Documented Da te Episodic/Chronic Acquired foot deformities (16 sources) Abduction deformity of foot; Translations: [Valgus deformity, not elsewhere classified, left ankle] Onset: 04-02-2023 04-02-2023 Episodic Administrative/social admission (20 sources) Patient encounter status; Translations: [Dietary counseling and surveillance] Onset: 03-28-2022 Episodic Diabetes mellitus with complications (20 sources) Proteinuria due to type 2 diabetes mellitus; Translations: [Type 2 diabetes mellitus with other diabetic kidney complication] Onset: 05-15-2021 Chronic Diabetes mellitus without complication (20 sources) Type 2 diabetes mellitus without complication; Translations: [Type 2 diabetes mellitus without complications] Onset: 02-11-2016 Chronic Disorders of lipid metabolism (20 sources) Hyperlipidemia; Translations: [Hyperlipidemia, unspecified] Onset: 07-14-2010 Chronic Essential hypertension (20 sources) Benign essential hypertension; Translations: [Essential (primary) hypertension] Onset: 09-01-2007 Chronic Genitourinary symptoms and ill-defined conditions (2 sources) Proteinuria, unspecified; Translations: [Frequency of micturition] Onset: 05-15-2021 Episodic Hyperplasia of prostate (20 sources) Urinary frequency due to benign prostatic hypertrophy; Translations: [Benign prostatic hyperplasia with lower urinary tract symptoms] Onset: 03-28-2022 03-28-2022 Chronic Immunizations and screening for infectious disease (2 sources) Suspected disease caused by 2019-nCoV; Translations: [Suspected COVID-19 virus infection] Episodic Neoplasms of unspecified nature or uncertain behavior (2 sources) Neoplasm of uncertain behavior of skin of nose; Translations: [Neoplasm of uncertain behavior of skin] Onset: 04-02-2023 04-02-2023 Episodic Osteoarthritis (20 sources) Degenerative joint disease involving multiple joints; Translations: [Polyosteoarthritis , unspecified] Onset: 03-08-2005 03-11-2021 Chronic Other circulatory disease (1 source) Respiratory symptom; Translations: [Other specified symptoms and signs involving the circulatory and respiratory systems] Episodic Other connective tissue disease (1 source) Pain in left foot; Translations: [Pain in left foot] Episodic Other connective tissue disease (15 sources) Pain in left lower limb; Translations: [Pain in left leg] Onset: 04-02-2023 04-02-2023 Episodic Other connective tissue disease (1 source) Pain in left leg; Translations: [Left leg pain] Onset: 04-02-2023 Episodic Other inflammatory condition of skin (20 sources) Rosacea; Translations: [Rosacea, unspecified] Onset: 03-11-2021 03-11-2021 Chronic Other male genital disorders (20 sources) Secondary erectile dysfunction; Translations: [Male erectile dysfunction, unspecified] Onset: 03-28-2022 03-28-2022 Chronic Other male genital disorders (1 source) Male erectile dysfunction, unspecified; Translations: [ED (erectile dysfunction) of organic origin] Onset: 04-02-2023 Chronic Other nervous system disorders (20 sources) Carpal tunnel syndrome of left wrist; Translations: [Carpal tunnel syndrome, left upper limb] Onset: 04-12-2017 03-11-2021 Chronic Other nutritional; endocrine; and metabolic disorders (20 sources) Body mass index 40+ - severely obese; Translations: [Morbid (severe) obesity due to excess calories] Onset: 07-06-2010 Chronic Other nutritional; endocrine; and metabolic disorders (1 source) Morbid (severe) obesity due to excess calories; Translations: [Morbid obesity with BMI of 40.0-44.9, adult ([facility])] Onset: 03-11-2021 Chronic Other nutritional; endocrine; and metabolic disorders (1 source) Body mass index (BMI) 40.0-44.9, adult; Translations: [Morbid obesity with BMI of 40.0-44.9, adult ([facility])] Onset: 03-11-2021 Chronic Other screening for suspected conditions (not mental disorders or infectious disease) (1 source) Encounter for screening for malignant neoplasm of colon; Translations: [Screening for colon cancer] Onset: 04-02-2023 Episodic Other skin disorders (1 source) Eruption; Translations: [Rash and other nonspecific skin eruption] Episodic Other skin disorders (15 sources) Foot callus; Translations: [Corns and callosities] Onset: 04-02-2023 04-02-2023 Episodic Other skin disorders (1 source) Corns and callosities; Translations: [Foot callus] Onset: 04-02-2023 Episodic Residual codes; unclassified (20 sources) Sleep apnea; Translations: [Sleep apnea, unspecified] Onset: 09-01-2007 03-11-2021 Chronic Residual codes; unclassified (1 source) Generalized aches and pains; Translations: [Pain, unspecified] Episodic Residual codes; unclassified (17 sources) Family history of malignant neoplasm of pancreas; Translations: [Family history of malignant neoplasm of digestive organs] Onset: 04-02-2023 04-02-2023 Episodic Residual codes; unclassified (1 source) Family history of malignant neoplasm of digestive organs; Translations: [Family history of pancreatic cancer] Onset: 04-02-2023 Episodic Skin and subcutaneous tissue infections (1 source) Cellulitis of skin; Translations: [Cellulitis, unspecified] Episodic Unclassified (1 source) Suspected COVID-19 virus infection; Translations: [Suspected COVID-19 virus infection] Onset: 04-02-2023 Viral infection (3 sources) Verruca vulgaris; Translations: [Viral wart, unspecified] Onset: 04-02-2023 Episodic Past or Other Problems Problem Classification Problem Date Documented Date Episodic/Chronic Cardiac dysrhythmias (20 sources) Palpitations; Translations: [Palpitations] Onset: 11-29-2021 Episodic Other and unspecified benign neoplasm (20 sources) History of polyp of colon; Translations: [Personal history of colonic polyps] Onset: 10-13-2007 03-11-2021 Episodic Other and unspecified benign neoplasm (1 source) Personal history of colonic polyps; Translations: [History of colonic polyps] Onset: 03-11-2021 Episodic Other connective tissue disease (20 sources) Plantar fasciitis; Translations: [Plantar fascial fibromatosis] Onset: 05-02-2018 03-11-2021 Episodic Other diseases of veins and lymphatics (20 sources) Peripheral venous insufficiency; Translations: [Venous insufficiency (chronic) (peripheral)] Onset: 03-08-2005 Episodic Other diseases of veins and lymphatics (20 sources) Stasis dermatitis; Translations: [Venous insufficiency (chronic) (peripheral)] Onset: 07-07-2011 Episodic Other diseases of veins and lymphatics (2 sources) Venous insufficiency (chronic) (peripheral); Translations: [Venous stasis dermatitis of both lower extremities] Onset: 03-11-2021 Episodic Other male genital disorders (20 sources) Disorder of prostate; Translations: [Disorder of prostate, unspecified] Onset: 11-29-2021 Episodic Other male genital disorders (1 source) Disorder of prostate, unspecified; Translations: [Prostate disorder] Onset: 11-29-2021 Episodic Screening and history of mental health and substance abuse codes (20 sources) Ex-smoker; Translations: [Personal history of nicotine dependence] Onset: 03-11-2021 03-16-2021 Episodic Spondylosis; intervertebral disc disorders; other back problems (20 sources) Neck pain; Translations: [Cervicalgia] Onset: 06-26-2017 03-11-2021 Episodic Varicose veins of lower extremity (20 sources) Varicose veins of lower extremity; Translations: [Asymptomatic varicose veins of unspecified lower extremity] Onset: 03-03-2012 03-11-2021 Episodic Results Test Name Value Interpretation Reference Range Facil ity Vital Signs Date Time Vital Sign Value Performing Clinician Octavio mina 04-02-2023 09:16-0400 Body height 185 cm Ean Sow MD Work Phone: [facility] 04-02-2023 09:16-0400 Body weight 148.33 kg Ean Sow MD Work Phone: [facility] 04-02-2023 09:16-0400 Diastolic blood pressure 80 mm[Hg] Ean Sow MD Work Phone: [facility] 04-02-2023 09:16-0400 Heart rate 67 /min Ean Sow MD Work Phone: [facility] 04-02-2023 09:16-0400 Respiratory rate 16 /min Ean Sow MD Work Phone: [facility] 04-02-2023 09:16-0400 SaO2% (BldA) [Mass fraction] 95 % Ean Sow MD Work Phone: [facility] 04-02-2023 09:16-0400 Systolic blood pressure 128 mm[Hg] Ean Sow MD Work Phone: [facility] 09-25-2022 07:58-0400 Body weight 146.97 kg Vivirebeca Kelly PA-C Work Phone: [facility] 09-25-2022 07:58-0400 Diastolic blood pressure 78 mm[Hg] Vivi Kelly PA-C Work Phone: [facility] 09-25-2022 07:58-0400 Heart rate 52 /min Vivi Kelly PA-C Work Phone: [facility] 09-25-2022 07:58-0400 Respiratory rate 18 /min iVvi Kelly PA-C Work Phone: [facility] 09-25-2022 07:58-0400 SaO2% (BldA) [Mass fraction] 98 % Vivi Kelly PA-C Work Phone: [facility] 09-25-2022 07:58-0400 Systolic blood pressure 136 mm[Hg] Vivi Kelly PA-C Work Phone: [facility] 03-28-2022 08:10-0400 Body height 182.9 cm Ean Sow MD Work Phone: [facility] 03-28-2022 08:10-0400 Body weight 149.69 kg Ean Sow MD Work Phone: [facility] 03-28-2022 08:10-0400 Diastolic blood pressure 78 mm[Hg] Ean Sow MD Work Phone: [facility] 03-28-2022 08:10-0400 Heart rate 68 /min Ean Sow MD Work Phone: [facility] 03-28-2022 08:10-0400 Respiratory rate 16 /min Ean Sow MD Work Phone: [facility] 03-28-2022 08:10-0400 Systolic blood pressure 138 mm[Hg] Ean Sow MD Work Phone: [facility] 02-26-2022 10:52-0400 Body temperature 98.71 [degF] Miladys Juan Carlos BUSINESS PROCESS SPECIALIST.CAFETERIA TABLE ATTENDANT Work Phone: [facility] 02-26-2022 10:52-0400 Body weight 150.23 kg Miladys Juan Carlos BUSINESS PROCESS SPECIALIST.CAFETERIA TABLE ATTENDANT Work Phone: [facility] 02-26-2022 10:52-0400 Diastolic blood pressure 82 mm[Hg] Miladys Juan Carlos BUSINESS PROCESS SPECIALIST.CAFETERIA TABLE ATTENDANT Work Phone: [facility] 02-26-2022 10:52-0400 Heart rate 76 /min Miladys Juan Carlos BUSINESS PROCESS SPECIALIST.CAFETERIA TABLE ATTENDANT Work Phone: [facility] 02-26-2022 10:52-0400 Respiratory rate 20 /min Miladys Juan Carlos BUSINESS PROCESS SPECIALIST.CAFETERIA TABLE ATTENDANT Work Phone: [facility] 02-26-2022 10:52-0400 SaO2% (BldA) [Mass fraction] 96 % Miladys Juan Carlos BUSINESS PROCESS SPECIALIST.CAFETERIA TABLE ATTENDANT Work Phone: [facility] 02-26-2022 10:52-0400 Systolic blood pressure 142 mm[Hg] Miladys Juan Carlos BUSINESS PROCESS SPECIALIST.CAFETERIA TABLE ATTENDANT Work Phone: [facility] 12-18-2021 11:04-0400 Body height 185.[address] [facility] 12-18-2021 11:04-0400 Body weight 144.[address] [facility] 11-29-2021 13:09-0400 Body weight 151.5 kg Ean Sow MD Work Phone: [facility] 11-29-2021 13:09-0400 Diastolic blood pressure 80 mm[Hg] Ean Sow MD Work Phone: [facility] 11-29-2021 13:09-0400 Heart rate 78 /min Ean Sow MD Work Phone: [facility] 11-29-2021 13:09-0400 Respiratory rate 14 /min Ean Sow MD Work Phone: [facility] 11-29-2021 13:09-0400 Systolic blood pressure 138 mm[Hg] Ean Sow MD Work Phone: [facility] Encounters Encounter Date Encounter Type Care Provider Facility Start: 06-11-2023 Telephone encounter Rupal Briceno MA [facility] Ravi Start: 05-31-2023 End: 05-31-2023 ambulatory EAN SOW Facility:[facility] Start: 05-31-2023 End: 05-31-2023 ambulatory Immunization Clinic Nurse Ravi Work Phone: [facility] Ravi Start: 05-24-2023 End: 05-24-2023 ambulatory EAN SOW Facility:[facility] Start: 05-24-2023 End: 05-24-2023 ambulatory Immunization Clinic Nurse Ravi Work Phone: [facility] Start: 05-17-2023 Telephone encounter Ean Sow MD Work Phone: [facility] Procedures Date Procedure Procedure Detail Performing Clinician Start: 05-31-2023 PFIZER-BIONTECH COVI D-19 VACCINE ( SEASON) AGE 12+ YR Ean Sow MD Work Phone: Start: 05-24-2023 INFLUENZA VACCINE, P RSV FREE, AGE 65+ YR, HIGH DOSE, QUADRIVALENT (FLUZONE HIGH-DOSE) Benigno Cruz DO Work Phone: Start: 04-10-2023 Ct abdomen w/contras t material Ean Sow MD Work Phone: Start: 09-25-2022 PFIZER-BIONTECH COVI D-19 BIVALENT BOOSTER VACCINE, AGE 12+ YR Vivi Kelly PA-C Work Phone: Start: 05-16-2022 INFLUENZA SEASONAL QUADRIVALENT HIGH DOSE AGE 65+ Ean Sow MD Work Phone: Start: 03-28-2022 Adult depression scr eening assessment Ean Sow MD Work Phone: Start: 09-09-2020 Adult depression scr eening assessment Ean Sow MD Work Phone: Start: 06-13-2018 Colonoscopy Ean cano MD Work Phone: Plan of Treatment Date Care Activity Detail Author Start: 03-21-2027 PROSTATE CANCER SCRE ENING DISCUSSION PROSTATE CANCER SCREENING DISCUSSION [facility] Start: 05-19-2025 PROSTATE CANCER SCRE ENING DISCUSSION PROSTATE CANCER SCREENING DISCUSSION [facility] Start: 04-02-2024 3 comp foot exam completed Diabetic Foot Exam [facility] Start: 04-02-2024 Annual PCP Team [employer] anamika Disease Visit Annual PCP Team Chronic Disease Visit [facility] Start: 04-02-2024 BP Controlled (<130/80) BP Controlle d (<130/80) [facility] Start: 04-02-2024 Covid-19 Vaccine ( season) Covid-19 Vaccine () [facility] Immunizations Immunization Date Immunization Notes Care Provider Fa wilbert 05-31-2023 COVID-19 vaccine, ag e 12+ yr, season (PFIZER-BIONTECH) Immunization M[place]k Work Phone: [facility] Work Phone: 05-24-2023 influenza (HD-IIV4) vaccine, age 65+ yr, high dose, quadrivalent, PF (FLUZONE HIGH-DOSE) Immunization Mauk Work Phone: [facility] Work Phone: 09-25-2022 COVID-19 booster vaccine, age 12+ yr, bivalent (PFIZER-BIONTECH) Vivi Kelly PA-C Work Phone: [facility] 05-16-2022 influenza, high-dose , quadrivalent vaccine (FLUZONE HIGH DOSE QUADRIVALENT) Mi Nurse Work Phone: [facility] Work Phone: 05-16-2022 influenza virus vaccine, unspecified formulation Ean Sow MD Work Phone: [facility] 05-20-2021 influenza, high-dose , quadrivalent vaccine (FLUZONE HIGH DOSE QUADRIVALENT) Ean Sow MD Work Phone: [facility] 05-30-2020 influenza, high-dose , quadrivalent vaccine (FLUZONE HIGH DOSE QUADRIVALENT) Ean Sow MD Work Phone: [facility] 05-06-2019 influenza, high dose seasonal, preservative-free Ean Sow MD Work Phone: [facility] 05-02-2018 pneumococcal polysaccharide vaccine, 23 valent Ean Sow MD Work Phone: [facility] 04-23-2018 influenza, injectabl e, quadrivalent, preservative free Ean Sow MD Work Phone: [facility] 04-23-2018 influenza, seasonal, injectable Ean Sow MD Work Phone: [facility] 04-19-2017 influenza, injectabl e, quadrivalent, preservative free Ean Sow MD Work Phone: [facility] 09-21-2014 pneumococcal conjuga te vaccine, 13 valent Ean Sow MD Work Phone: [facility] 08-08-2012 influenza virus vaccine, unspecified formulation Ean Sow MD Work Phone: [facility] Payers Date Payer Category Payer Medicare [id number] 2019 Unknown MMO MMO MEDICARE SUPPLEMENT [id number] 2019-Present [phone] [address] [place] [address] Indemnity [id number] 2019 Unknown MMO MMO MEDICARE SUPPLEMENT [id number] 2019-Present [phone] [address] [place] [address] Indemnity [id number] 2018 Medicare MEDICARE MEDICAR E A AND B [id number] 2018-Present [phone] [address] [address] [place] [address] Medicare [id number] 2018 Medicare MEDICARE MEDICAR E A AND B [id number] 2018-Present [phone] [place] [address] Medicare [id number] 2018 Medicare [id number] Social History Date Type Detail Facility Start: 02-26-2022 Tobacco smoking stat us KYIS Ex-smoker [facility] Work Phone: End: 01-15-2010 History of tobacco use Current smoker [facility] End: 01-15-2010 History of tobacco use Cigarette Smoker [facility] End: 05-03-2011 History of tobacco use User of smokeless tobacco [facility] Start: 11-29-2021 End: 04-02-2023 Alcohol intake Current drinker of alcohol (finding) [facility] Start: 09-09-2020 History SDOH Social Connections Phone 98 [facility] Start: 09-09-2020 History SDOH Social Connections Membership 2 [facility] Start: 09-09-2020 History SDOH Social Connections Meetings 1 [facility] Start: 09-09-2020 History SDOH Physica l Activity DPW 6 [facility] Start: 09-09-2020 History SDOH Physica l Activity MPS 4 [facility] Start: 09-09-2020 History SDOH Financial 5 [facility] Start: 1955 Sex Assigned At Not on file C [facility] Start: 11-19-2021 End: 03-29-2022 Exposure to SARS-CoV-2 (event) Not sure [facility] Start: 02-26-2022 End: 04-02-2023 Cigarettes smoked current (pack per day) - Reported 0.5 [facility] Work Phone: Start: 02-26-2022 Tobacco use and exposure Adilson canseco smokeless tobacco user [facility] Start: 09-25-2022 Alcohol Comment very rarely [facility] Start: 09-25-2022 End: 04-02-2023 Tobacco use panel [facility] Work Phone: Adult Depression Scr eening Assessment 0 [facility] Work Phone: Do you belong to any clubs or organizations such as tenriism groups, unions, fraternal or athletic groups, or school groups? No [facility] Do you feel stress - tense, restless, nervous, or anxious, or unable to sleep at night because your mind is troubled all the time - these days [OSQ] Not at all [facility] Medical Equipment Procedure Code Equipment Code Equipment Origin al Text Equipment Identifier Dates Test blood sugar (s) 1-2 times daily. Dx: Type 2 DM - Uncontrolled E11.65 Insulin: No Start: 07-28-2021 End: 04-29-2023 Clinical Notes 07-06-2010 to 06-12-2023 Telephone Encounter - Rupal Briceno MA - 06/12/2023 4:11 PM ESTTelephone Encounter - Ean Sow MD - 06/12/2023 2:03 PM ESTTelephone Encounter - Rupal Briceno MA - 06/11/2023 4:18 PM EST Note Date & Type Note Facility 06-12-2023 Miscellaneous Notes Faxed. Rupal Briceno MA Forms ready. Received fax from [employer] regarding diabetic supplies for patient. It looks like it was electronically sent 05/16. Received fax 06/11/2023. Rupal Briceno MA documented in this encounter [facility] 05-17-2023 Miscellaneous Notes Patient was notified Tasneem Wright Ma Let patient know I sent in a script for Actos 30 mg once a day to [facility] if he wants to check on it. The following approved medication requests have been transmitted electronically. Requested Prescriptions Signed Prescriptions Disp Refills pioglitazone (ACTOS) 30 mg tablet 90 tablet 1 Sig: Take 1 tablet by mouth once daily. Authorizing Provider: EAN SOW MD Jaswant Aguiar is calling Ean Sow MD today with a update and fyi on the medication, Invokana which is over $900.00 per patient he will not be buying this medication that was to take the place of the [facility]. Patient has been identified by name and birthdate. Duration of symptoms: N/A Person calling: self Call patient at: on cell [phone] (cell) Was an appointment scheduled: No Closing statement: Results or non-symptom based questions: Thank you for calling [facility], your call will be returned within the next business day. Mariblel Strauss documented in this encounter [facility] 05-07-2023 Miscellaneous Notes The following approved medication requests have been transmitted electronically. Requested Prescriptions Signed Prescriptions Disp Refills losartan (COZAAR) 50 mg tablet 180 tablet 1 Sig: Take 2 tablets by mouth once daily. Authorizing Provider: AEN SOW amLODIPine (NORVASC) 10 mg tablet 90 tablet 1 Sig: Take 1 tablet by mouth once daily. Authorizing Provider: EAN SOW glimepiride (AMARYL) 4 mg tablet 180 tablet 1 Sig: Take 1 tab twice a day. Authorizing Provider: EAN SOW MD MONISHA: 04/02/23-medicare wellness with PCP NOV: 10/01/23 with RR Last refill: 12/05/22 Losartan With 180 and 1 refills Amlodipine With 90 and 1 refills Glimepiride With 180 and 1 refills Tita Garza MA documented in this encounter [facility] 05-02-2023 Miscellaneous Notes Patient calling and states his prescriptions for atorvastatin and hydrochlorothiazide were sent to incorrect pharmacy. This nurse contacted [facility] and cancelled the two prescriptions as requested. This nurse contacted [facility] and verbal orders given for the two prescriptions, as patient requested to use their services. Amanda Marrero RN documented in this encounter [facility] 04-29-2023 Miscellaneous Notes The following approved medication requests have been transmitted electronically. Requested Prescriptions Signed Prescriptions Disp Refills Lancets lancets 100 Each 11 Sig: Test blood sugar(s) 1-2 times daily. Dx: Type 2 DM - Uncontrolled E11.65 Insulin: No Authorizing Provider: EAN SOW blood sugar diagnostic (BLOOD GLUCOSE TEST) test strip 100 Strip 11 Sig: Test blood sugar(s) 1-2 times daily. Dx: Type 2 DM - Uncontrolled E11.65 Insulin: No Authorizing Provider: EAN SOW hydroCHLOROthiazide 25 mg tablet 90 tablet 1 Sig: Take 1 tablet by mouth once daily. Authorizing Provider: EAN SOW atorvastatin (LIPITOR) 20 mg tablet 90 tablet 1 Sig: Take 1 tablet by mouth once daily. For cholesterol. Authorizing Provider: EAN SOW MD MONISHA 04/02/23 NOV 10/01/23 Please review and advise. Thank you. ARTEMIO Mcclain Patient has been identified by name and date of : Yes Requested Prescriptions Pending Prescriptions Disp Refills Lancets lancets 100 Each 11 Sig: Test blood sugar(s) 1-2 times daily. Dx: Type 2 DM - Uncontrolled E11.65 Insulin: No blood sugar diagnostic (BLOOD GLUCOSE TEST) test strip 100 Strip 11 Sig: Test blood sugar(s) 1-2 times daily. Dx: Type 2 DM - Uncontrolled E11.65 Insulin: No hydroCHLOROthiazide 25 mg tablet 90 tablet 1 Sig: Take 1 tablet by mouth once daily. atorvastatin (LIPITOR) 20 mg tablet 90 tablet 1 Sig: Take 1 tablet by mouth once daily. For cholesterol. RX INSTRUCTIONS: Patient aware RX will be sent to pharmacy. No need to notify patient. Myriam Echeverria Pss documented in this encounter [facility] 04-11-2023 Miscellaneous Notes Patient notified of results, verbalizes understanding of instructions. Leonora Cueva LPN Let patient know ct of pancrease was normal. documented in this encounter [facility] 04-10-2023 Note HNO ID: [id number] Author: Phuong Plascencia RT(R) Service: ? Author Type: Mechanical Designer Type: Progress Notes Filed: 04/10/2023 9:47 AM Note Text: Radiology Service Progress Note DATE OF SERVICE: April 10, 2023 TIME: 9:47 AM PATIENT IDENTITY VERIFICATION COMPLETED USING TWO (2) STANDARD IDENTIFIERS: Name and Date of confirmed by patient verbally. FALL SCREENING: Has the patient had 2 falls in the last year or 1 fall with injury or currently using an Ambulatory Assistive Device (Walker, Cane, Wheelchair, Crutches, etc.)? No PATIENT GENDER DATA: Male PATIENT RELEVANT IMPLANT DATA REVIEWED: Yes ALLERGIES: Reviewed and unchanged CONTRAST ALLERGY: NO. EXAM: CT -CONTRAST INDUCED NEPHROPATHY RISK FACTORS: Patient age > 60 years CREATININE: Creatinine Date Value Ref Range Status 03/22/2023 1.26 (H) 0.73 - 1.22 mg/dL Final 03/21/2022 1.00 0.73 - 1.22 mg/dL Final 05/11/2021 0.94 0.73 - 1.22 mg/dL Final Estimated Glomerular Filtration Rate Date Value Ref Range Status 03/22/2023 62 >=60 mL/min/1.73m? Final Comment: Estimated Glomerular Filtration Rate (eGFR) is calculated using the 2020 CKD-EPI creatinine equation. This equation utilizes serum creatinine, sex, and age as parameters. The creatinine assay has traceable calibration to isotope dilution-mass spectrometry. Refer to KDIGO guidelines for clinical interpretation. In patients with unstable renal function, e.g. those with acute kidney injury, the eGFR may not accurately reflect actual GFR. eGFR- Date Value Ref Range Status 05/11/2021 >60 Final P.O.C.T. RESULTS: POC done: Yes, See Lab Tab April 10, 2023 TREATMENT: N/A PERIPHERAL IV DATA: Ambulatory: A peripheral IV was started in the Left antecubital site with a Angio cath: 18 gauge. RADIOLOGY DEPARTMENT: CT; Exam(s) Completed: Pancreas SIGNATURE: RT Jonatan(R) PATIENT NAME: Jaswant Aguiar DATE: April 10, 2023 TIME: 9:47 AM [facility] 04-10-2023 History of Present illness Narrative Radiology Service Progress Note DATE OF SERVICE: April 10, 2023 TIME: 9:47 AM PATIENT IDENTITY VERIFICATION COMPLETED USING TWO (2) STANDARD IDENTIFIERS: Name and Date of confirmed by patient verbally. FALL SCREENING: Has the patient had 2 falls in the last year or 1 fall with injury or currently using an Ambulatory Assistive Device (Walker, Cane, Wheelchair, Crutches, etc.)? No PATIENT GENDER DATA: Male PATIENT RELEVANT IMPLANT DATA REVIEWED: Yes ALLERGIES: Reviewed and unchanged CONTRAST ALLERGY: NO. EXAM: CT -CONTRAST INDUCED NEPHROPATHY RISK FACTORS: Patient age > 60 years CREATININE: Creatinine Date Value Ref Range Status 03/22/2023 1.26 (H) 0.73 - 1.22 mg/dL Final 03/21/2022 1.00 0.73 - 1.22 mg/dL Final 05/11/2021 0.94 0.73 - 1.22 mg/dL Final Estimated Glomerular Filtration Rate Date Value Ref Range Status 03/22/2023 62 >=60 mL/min/1.73m Final Comment: Estimated Glomerular Filtration Rate (eGFR) is calculated using the 2020 CKD-EPI creatinine equation. This equation utilizes serum creatinine, sex, and age as parameters. The creatinine assay has traceable calibration to isotope dilution-mass spectrometry. Refer to KDIGO guidelines for clinical interpretation. In patients with unstable renal function, e.g. those with acute kidney injury, the eGFR may not accurately reflect actual GFR. eGFR- Date Value Ref Range Status 05/11/2021 >60 Final P.O.C.T. RESULTS: POC done: Yes, See Lab Tab April 10, 2023 TREATMENT: N/A PERIPHERAL IV DATA: Ambulatory: A peripheral IV was started in the Left antecubital site with a Angio cath: 18 gauge. RADIOLOGY DEPARTMENT: CT; Exam(s) Completed: Pancreas SIGNATURE: RT Jonatan(R) PATIENT NAME: Jaswant Aguiar DATE: April 10, 2023 TIME: 9:47 AM documented in this encounter [facility] 04-08-2023 Miscellaneous Notes Pt notified and voiced understanding. Transferred to PSS to set up CT. Filomena Benitez Ma Let patient know order for CT placed. The day he has the CT he needs to stop his metformin. He will need a blood test two days after the CT to see if it's ok to restart the metformin. Pt notified of Dr Sow's message. Pt is agreeable to doing the CT scan. Pt aware he will be contacted once order has been placed. Sherill A Hambel TRY OUT PERSON Let patient know that due to over lying bowel gas the pancrease could not be completely seen. If he is ok I can order a CT study to get better imaging. documented in this encounter [facility] 04-08-2023 Note HNO ID: [id number] Author: Juliet Boswell RDMS Service: ? Author Type: Mechanical Designer Type: Progress Notes Filed: 04/08/2023 9:04 AM Note Text: Radiology Service Progress Note PATIENT NAME: Jaswant Aguiar DATE OF SERVICE: April 08, 2023 TIME: 9:03 AM PATIENT IDENTITY VERIFICATION COMPLETED USING TWO (2) IDENTIFIERS: Name and Date of confirmed by patient verbally. FALL SCREENING: Has the patient had 2 falls in the last year or 1 fall with injury or currently using an Ambulatory Assistive Device (Walker, Cane, Wheelchair, Crutches, etc.)? No PATIENT GENDER DATA: Male PATIENT RELEVANT IMPLANT DATA REVIEWED: Not Applicable RADIOLOGY DEPARTMENT: Ultrasound PERIPHERAL IV DATA: Not applicable SIGNED BY: Juliet Boswell RDMS April 08, 2023 9:03 AM [facility] 04-04-2023 Miscellaneous Notes Pt called and is notified of providers message. Pt voices understanding. Cici Delatorre RN Farxiga sent back to pharmacy. Invokana discontinued. Please see message below. Liu Sims TRY OUT PERSON Patient would like to be prescribed dapagliflozin propanediol (FARXIGA) 5 mg tablet. Patient states the pharmacy was incorrect about the christians[place] of the medication and told him it is at a much lower cost. Patient would like this prescribed to him again. Please send to prescription to [facility]. Please return call to patient when complete. documented in this encounter [facility] 04-03-2023 Miscellaneous Notes Patient was notified Tasneem Wright Ma Let patient know I sent in a script for Invokana. It;s in the same class but appears to be a lower cost ter. Let me know if still too much. The following approved medication requests have been transmitted electronically. Requested Prescriptions Signed Prescriptions Disp Refills canagliflozin (INVOKANA) 100 mg tab 90 tablet 1 Sig: Take 1 tablet by mouth daily before breakfast. Authorizing Provider: EAN SOW MD Patient states he saw Dr. Sow yesterday and Farxiga was ordered for him. Reports this medication will cost him too much, about $538 per month. Pt asking if Dr. Sow could recommend a different medication, that will be less costly. Please advise patient. Thank you. documented in this encounter [facility] 04-02-2023 Note HNO ID: [id number] Author: Ean Sow MD Service: ? Author Type: Physician Type: Progress Notes Filed: 04/02/2023 12:05 PM Note Text: Medicare Yearly Visit Medical B eligibilty date 12/13/2018 Date of last exam 03/28/2022 PAST MEDICAL HISTORY PAST MEDICAL HISTORY Diagnosis Date Advance directive discussed with patient 03/28/2022 Discussed 03/2022 Calculus of gallbladder without mention of cholecystitis or obstruction 03/08/2005 Carpal tunnel syndrome, left 04/12/2017 Cervicalgia 06/26/2017 Chest pain, unspecified 03/08/2005 Cholecystitis, unspecified 03/08/2005 Diverticulosis of large intestine 05/2018 Esophageal reflux 03/08/2005 Essential hypertension, benign 09/01/2007 Ex-smoker 03/11/2021 Started age 16 up to 1.5-1 PPD quit at age 54 External hemorrhoids without mention of complication 03/08/2005 Generalized osteoarthrosis, unspecified site 03/08/2005 History of colonic polyps 10/13/2007 Hyperlipidemia, mixed 07/14/2010 Internal hemorrhoids without mention of complication 03/08/2005 Morbid obesity with BMI of 40.0-44.9, adult ([facility]) 07/06/2010 Open wound of knee, leg (except thigh), and ankle, without mention of complication 03/08/2005 Palpitations 11/29/2021 Has had for many years Personal history of colonic polyps 2018 Plantar fasciitis 05/02/2018 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) 05/15/2021 Rosacea 03/11/2021 Sleep apnea 09/01/2007 Not using CPAP Sprain of lumbosacral (joint) (ligament) 03/08/2005 Stasis dermatitis 07/07/2011 Type 2 diabetes mellitus without complication, without long-term current use of insulin (HCC) 02/11/2016 Type 2 diabetes mellitus, without long-term current use of insulin (HCC) 02/11/2016 Uncontrolled type 2 diabetes mellitus with hyperglycemia (HCC) 07/28/2021 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) 03/08/2005 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 Venous (peripheral) insufficiency 03/08/2005 PAST SURGICAL HISTORY PAST SURGICAL HISTORY Procedure Laterality Date CHOLECYSTECTOMY 2003 Cholecystectomy COLONOSCOPY FLX DX W/COLLJ SPEC WHEN PFRMD 11-21-07 COLONOSCOPY FLX DX W/COLLJ SPEC WHEN [facility] FLX W/RMVL OF TUMOR POLYP LESION SNARE TQ 04-23-13 DEBRIDEMENT SUBCUTANEOUS TISSUE 20 SQ CM/< Left 06/27/15 Debridement UIQ left breast infected glenny cyst ENDOVENOUS LASER, 1ST VEIN 11/16/2014 [facility] - see scanned documents ENDOVENOUS LASER, 1ST VEIN 06/05/2015 [facility] - right great saphenous vein NEUROPLASTY AND/TRANSPOS MEDIAN NRV CARPAL TUNNE Carpal tunnel decomp, right STRESS TEST EXERCISE 09/21/2013 Exercise Myocardial Perfusion Stress test TONSILLECTOMY HX under age 10 ALLERGIES: Lisinopril Medications reviewed: Yes FAMILY HISTORY FAMILY HISTORY Problem Relation Age of Onset Heart Mother CHF, DM Diabetes Mother Cancer Father lung Hypertension Sister Hypertension Brother COPD Brother SOCIAL HISTORY: SOCIAL HISTORY Social History Tobacco Use Smoking status: Former Packs/day: 0.50 Years: 30.00 Pack years: 15.00 Types: Cigarettes Quit date: 01/15/2010 Years since quittin.2 Smokeless tobacco: Former Quit date: 05/03/2011 Substance Use Topics Alcohol use: Yes Drug use: No Jaswant may ride his bike a few days a week but not much recently. . He watches his diet for sodium, low fat and low cholesterol generally not very much. List of current specialists seen: optho End of Live Planning discussed including patients advanced directive wishes: Yes I am willing to follow Jaswant's advanced directives. PHQ-2 / Depression screen Not at risk for depression. Functional Ability/Safety Screen 1. Was the patient's timed Up and Go test unsteady or longer than 30 seconds? No 2. Does the patient need help with the phone, transportation, shopping,preparing meals, housework, laundry, medications or managing money? No 3. Does your home have rugs in the hallway, lack of grab bars in the bathroom, lack of handrails on the stairs or have poor lighting? No Hearing Evaluation: normal PHYSICAL EXAM BP 128/80 Pulse 67 Resp 16 Ht 185 cm (6' 0.84 ) Wt (!) 148.3 kg (327 lb) SpO2 95% BMI 43.34 kg/m? Alert and oriented X 3: YES Body mass index is 43.34 kg/m?. Visual acuity: see optho See below ASSESSMENT/PLAN: 67 year old male The following prevention plan was discussed during the office visit and provided to the patient: See below Ean Sow MD Chief Complaint Patient presents with: Medicare Wellness Exam HPI Jaswant Aguiar is a 67 year old male who presents here today for Chronic Medical Conditions. and Medicare Annual Visit. Patient with Hx of HTN, DM 2, Hyperlipidemia, ex-smoker, Morbid obesity, CATHERINE, venous insufficiency, rosea, arthritis as well as those reviewed and addressed below and in ROS. Patient's sister recently due to pancreatic cancer. Pa (more content not included)... [facility] 04-02-2023 Instructions Ean Sow MD - 04/02/2023 9:44 AM EDT Consider getting the shingrix vaccine for the prevention of shingles from a local pharmacy Also consider getting Tdap update for tetanus at the health dept. Would also advise getting the RSV vaccine. Please get labs and urine test done on or after 09/20/2023 prior to your next visit. documented in this encounter [facility] 04-02-2023 History of Present illness Narrative Images from the original note were not included. Medicare Yearly Visit Medical B eligibilty date 12/13/2018 Date of last exam 03/28/2022 PAST MEDICAL HISTORY PAST MEDICAL HISTORY Diagnosis Date Advance directive discussed with patient 03/28/2022 Discussed 03/2022 Calculus of gallbladder without mention of cholecystitis or obstruction 03/08/2005 Carpal tunnel syndrome, left 04/12/2017 Cervicalgia 06/26/2017 Chest pain, unspecified 03/08/2005 Cholecystitis, unspecified 03/08/2005 Diverticulosis of large intestine 05/2018 Esophageal reflux 03/08/2005 Essential hypertension, benign 09/01/2007 Ex-smoker 03/11/2021 Started age 16 up to 1.5-1 PPD quit at age 54 External hemorrhoids without mention of complication 03/08/2005 Generalized osteoarthrosis, unspecified site 03/08/2005 History of colonic polyps 10/13/2007 Hyperlipidemia, mixed 07/14/2010 Internal hemorrhoids without mention of complication 03/08/2005 Morbid obesity with BMI of 40.0-44.9, adult (HCC) 07/06/2010 Open wound of knee, leg (except thigh), and ankle, without mention of complication 03/08/2005 Palpitations 11/29/2021 Has had for many years Personal history of colonic polyps 2018 Plantar fasciitis 05/02/2018 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) 05/15/2021 Rosacea 03/11/2021 Sleep apnea 09/01/2007 Not using CPAP Sprain of lumbosacral (joint) (ligament) 03/08/2005 Stasis dermatitis 07/07/2011 Type 2 diabetes mellitus without complication, without long-term current use of insulin (HCC) 02/11/2016 Type 2 diabetes mellitus, without long-term current use of insulin (HCC) 02/11/2016 Uncontrolled type 2 diabetes mellitus with hyperglycemia (HCC) 07/28/2021 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) 03/08/2005 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 Venous (peripheral) insufficiency 03/08/2005 PAST SURGICAL HISTORY PAST SURGICAL HISTORY Procedure Laterality Date CHOLECYSTECTOMY 2002 Cholecystectomy COLONOSCOPY FLX DX W/COLLJ SPEC WHEN PFRMD 11-21-07 COLONOSCOPY FLX DX W/COLLJ SPEC WHEN PFRMD 06/13/2018 [facility]Michael Cebul--Repeat 5 years COLSC FLX W/RMVL OF TUMOR POLYP LESION SNARE TQ 04-23-13 DEBRIDEMENT SUBCUTANEOUS TISSUE 20 SQ CM/< Left 06/27/15 Debridement UIQ left breast infected glenny cyst ENDOVENOUS LASER, 1ST VEIN 11/16/2014 [facility] - see scanned documents ENDOVENOUS LASER, 1ST VEIN 06/05/2015 [facility] - right great saphenous vein NEUROPLASTY &/TRANSPOS MEDIAN NRV CARPAL TUNNE Carpal tunnel decomp, right STRESS TEST EXERCISE 09/21/2013 Exercise Myocardial Perfusion Stress test TONSILLECTOMY HX under age 10 ALLERGIES: Lisinopril Medications reviewed: Yes FAMILY HISTORY FAMILY HISTORY Problem Relation Age of Onset Heart Mother CHF, DM Diabetes Mother Cancer Father lung Hypertension Sister Hypertension Brother COPD Brother SOCIAL HISTORY: SOCIAL HISTORY Social History Tobacco Use Smoking status: Former Packs/day: 0.50 Years: 30.00 Pack years: 15.00 Types: Cigarettes Quit date: 01/15/2010 Years since quittin.2 Smokeless tobacco: Former Quit date: 05/03/2011 Substance Use Topics Alcohol use: Yes Drug use: No Jaswant may ride his bike a few days a week but not much recently. . He watches his diet for sodium, low fat and low cholesterol generally not very much. List of current specialists seen: optho End of Live Planning discussed including patients advanced directive wishes: Yes I am willing to follow Jaswant's advanced directives. PHQ-2 / Depression screen Not at risk for depression. Functional Ability/Safety Screen 1. Was the patient's timed Up and Go test unsteady or longer than 30 seconds? No 2. Does the patient need help with the phone, transportation, shopping,preparing meals, housework, laundry, medications or managing money? No 3. Does your home have rugs in the hallway, lack of grab bars in the bathroom, lack of handrails on the stairs or have poor lighting? No Hearing Evaluation: normal PHYSICAL EXAM BP 128/80 Pulse 67 Resp 16 Ht 185 cm (6' 0.84 ) Wt (!) 148.3 kg (327 lb) SpO2 95% BMI 43.34 kg/m Alert and oriented X 3: YES Body mass index is 43.34 kg/m . Visual acuity: see optho See below ASSESSMENT/PLAN: 67 year old male The following prevention plan was discussed during the office visit and provided to the patient: See below Ean Sow MD Chief Complaint Patient presents with: Medicare Wellness Exam HPI Jaswant Aguiar is a 67 year old male who presents here today for Chronic Medical Conditions. and Medicare Annual Visit. Patient with Hx of HTN, DM 2, Hyperlipidemia, ex-smoker, Morbid obesity, CATHERINE, venous insufficiency, rosea, arthritis as well as those reviewed and addressed below and in ROS. Patient's sister recently due to pancreatic cancer. Past medical history, appointments, medications, allergies reviewed. Previous Medical History PAST MEDICAL HISTORY Diagnosis Date Advance directive discussed with patient 03/28/2022 Discussed 03/2022 Benign prostatic hyperplasia with urinary frequency 03/28/2022 Carpal tunnel syndrome, left 04/12/2017 Cervicalgia 06/26/2017 Diabetic eye exam (HCC) 03/29/2022 Last done 01/11/22 Dr Rafiq Avendano Diverticulosis of large intestine 05/2018 ED (erectile dysfunction) of organic origin 03/28/2022 Esophageal reflux 03/08/2005 Essential hypertension, benign 09/01/2007 Ex-smoker 03/11/2021 Started age 16 up to 1.5-1 PPD quit at age 54 External hemorrhoids without mention of complication 03/08/2005 Generalized osteoarthrosis, unspecified site 03/08/2005 History of colonic polyps 10/13/2007 Hyperlipidemia, mixed 07/14/2010 Internal hemorrhoids without mention of complication 03/08/2005 Morbid obesity with BMI of 40.0-44.9, adult ([facility]) 07/06/2010 Palpitations 11/29/2021 Has had for many years Personal history of colonic polyps 2018 Plantar fasciitis 05/02/2018 Proteinuria due to type 2 diabetes mellitus ([facility]) 05/15/2021 Rosacea 03/11/2021 Sleep apnea 09/01/2007 Not using CPAP Stasis dermatitis 07/07/2011 Type 2 diabetes mellitus without complication, without long-term current use of insulin ([facility]) 02/11/2016 Uncontrolled type 2 diabetes mellitus with hyperglycemia ([facility]) 07/28/2021 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 Venous (peripheral) insufficiency 03/08/2005 Previous Surgical History PAST SURGICAL HISTORY Procedure Laterality Date CHOLECYSTECTOMY 2002 Cholecystectomy COLONOSCOPY FLX DX W/COLLJ SPEC WHEN PFRMD 11-21-07 COLONOSCOPY FLX DX W/COLLJ SPEC WHEN PFRMD 06/13/2018 [facility]Michael De Anda--Repeat 5 years COLSC FLX W/RMVL OF TUMOR POLYP LESION SNARE TQ 04-23-13 DEBRIDEMENT SUBCUTANEOUS TISSUE 20 SQ CM/< Left 06/27/15 Debridement UIQ left breast infected glenny cyst ENDOVENOUS LASER, 1ST VEIN 11/16/2014 [facility] - see scanned documents ENDOVENOUS LASER, 1ST VEIN 06/05/2015 [facility] - right great saphenous vein NEUROPLASTY &/TRANSPOS MEDIAN NRV CARPAL TUNNE Carpal tunnel decomp, right STRESS TEST EXERCISE 09/21/2013 Exercise Myocardial Perfusion Stress test TONSILLECTOMY HX under age 12 Family History FAMILY HISTORY Problem Relation Age of Onset Heart Mother CHF, DM Diabetes Mother Cancer Father lung Hypertension Sister Hypertension Brother COPD Brother Patient Allergies ALLERGIES Allergen Reactions Lisinopril Cough Current Medications Current Outpatient Medications on File Prior to Visit Medication Sig metFORMIN (GLUCOPHAGE) 1,000 mg tablet Take 1 tablet by mouth twice daily with meals. losartan (COZAAR) 50 mg tablet Take 2 tablets by mouth once daily. hydroCHLOROthiazide 25 mg tablet Take 1 tablet by mouth once daily. amLODIPine (NORVASC) 10 mg tablet Take 1 tablet by mouth once daily. atorvastatin (LIPITOR) 20 mg tablet Take 1 tablet by mouth once daily. For cholesterol. glimepiride (AMARYL) 4 mg tablet Take 1 tab twice a day. blood sugar diagnostic (BLOOD GLUCOSE TEST) test strip Test blood sugar(s) 1-2 times daily. Dx: Type 2 DM - Uncontrolled E11.65 Insulin: No Lancets lancets Test blood sugar(s) 1-2 times daily. Dx: Type 2 DM - Uncontrolled E11.65 Insulin: No Tadalafil (CIALIS) 20 mg tab(s) Take 1 tablet by mouth once daily. As needed Aspirin 81 mg tab Take 1 tablet by mouth once daily. Take with food. [place]-3 Fatty Acids-Vitamin E (FISH OIL) 1,000 mg cap Take 1 capsule by mouth once daily. MULTI-VITAMIN ORAL Take by mouth. No current facility-administered medications on file prior to visit. Social History Social History Tobacco Use Smoking status: Former Packs/day: 0.50 Years: 30.00 Additional pack years: 0.00 Total pack years: 15.00 Types: Cigarettes Quit date: 01/15/2010 Years since quittin.2 Smokeless tobacco: Former Quit date: 05/03/2011 Vaping Use Vaping Use: Never used Substance Use Topics Alcohol use: Yes Comment: very rarely Drug use: No Review of Symptoms REVIEW OF SYSTEMS GENERAL: No unintentional weight loss, malaise. Last night felt hot HEENT: pressure in sinuses. No ear pain. Has clear rhinorrhea. Has a sore throat. NECK: Negative for lumps, goiter, pain and significant neck swelling RESPIRATORY: Negative for hemoptysis, wheezing, COPD, dyspnea or shortness of breath. Has had a dry cough for the past few days CARDIOVASCULAR: Negative for chest pain, leg swelling, hypertension, CHF or palpitations GI: No nausea, vomiting, or diarrhea, No frequent heartburn or reflux symptoms, and no blood : No history of dysuria, frequency or blood MUSCULOSKELETAL: has pain on occasional pain in the leg thigh. Also getting low back pain. Finds that his left foot turns out when walking. SKIN: Negative for lesions, rash, and itching. Feels like he has a sore on his [place]. PSYCH: Negative for sleep disturbance, mood disorder and recent psychosocial stressors HEMATOLOGY/LYMPHOLOGY: Negative for prolonged bleeding, bruising easily or swollen nodes ENDOCRINE: Negative for cold or heat intolerance. Gets low BS's on days he does not eat so well an misses a meal. NEURO: No history of headaches, syncope, paralysis, seizures or tremors EXAM: BP 128/80 Pulse 67 Resp 16 Ht 185 cm (6' 0.84 ) Wt (!) 148.3 kg (327 lb) SpO2 95% BMI 43.34 kg/m Last 4 Encounter Wt Readings: Date: Wt: 04/02/2023 148.3 kg (327 lb) 09/25/2022 147 kg (324 lb) 03/28/2022 149.7 kg (330 lb) 02/26/2022 150.2 kg (331 lb 3.2 oz) General Appearance: Well appearing, alert, in no acute distress, well-hydrated, well nourished. and Morbidly obese. Skin: Skin color, texture, turgor normal, no suspicious rashes or lesions. Has a dry scaly lesion on the right side of nares that is tender. Head: Normocephalic, no masses, lesions, tenderness or abnormalities. Eyes: Anicteric sclera. Pupils are equally round and reactive to light. Extraocular movements are intact. . Ears: External ears, TM's normal, canals clear. Nose/Sinuses: Nares normal, septum midline, mucosa slightly swollen with clear rhinorrhea, no drainage or sinus tenderness. Oropharynx: Lips, mucosa, and tongue normal, teeth and gums normal, oropharynx normal. Neck: Supple, no adenopathy; thyroid symmetric, normal size, no bruits. Lungs: Lungs clear to auscultation. No wheezing, rhonchi, rales.. Heart: RRR without murmur, gallop, or rubs. No ectopy. Abdomen: Normal abdominal exam, Abdomen soft, non-tender. Bowel sounds normal. No masses, organomegaly. Extremities: No deformities, skin discoloration, clubbing or cyanosis. Good capillary refill. Mild edema in both lower legs slightly pitting. Musculoskeletal: Muscular strength intact, No joint swelling, deformity, or tenderness. Peripheral Pulses: Normal. Neurologic: Gait normal. Reflexes normal and symmetric. Sensation to light touch and crainal nerves 2-12 intact.. Genitalia: Normal, Penis normal. No urethral discharge. Scrotum normal to palpation. No hernia.. Rectal: Normal exam. Prostate enlarged with smooth firm capsule. Diabetic Foot Exam: Feet: normal distal pulses, sensitive to 10 gm microfilament, vibratory exam within normal limits, and calluses noted bilaterally Skin: warm and dry Vascular Pulses: Normal SEMM[facility]ANC[facility] MONOFILAMENT TESTING Left Foot Right Foot Dorsal Surface Intact Dorsal Surface Intact Plantar Surface Intact Plantar Surface Intact Health Maintenance List Advance Directive Discussion due on 07/15/2022 Covid-19 Vaccine(5 - Pfizer series) due on 01/25/2023 Influenza Vaccine(1) due on 03/15/2023 Pneumococcal Vaccine: 65+(3 - PPSV23 or PCV20) due on 05/02/2023 Colorectal Cancer Screening due on 06/13/2023 DTaP,Tdap,Td Vaccine(1 - Tdap) due on 04/02/2024 Shingrix Vaccine(1 of 2) due on 04/02/2024 HbA1C due on 09/20/2023 Dilated Retinal Exam due on 01/11/2024 Urine Albumin:Creatinine Ratio due on 03/22/2024 LDL Cholesterol due on 03/22/2024 Diabetic Foot Exam due on 04/02/2024 Annual PCP Team Chronic Disease Visit due on 04/02/2024 BP Controlled (<130/80) due on 04/02/2024 Abdominal Aortic Aneurysm Screening Completed Depression Assessment Completed Hepatitis B Vaccine Discontinued Hepatitis C Screening Discontinued Data reviewed Component Latest Ref Rng & Units 03/21/2022 09/19/2022 03/22/2023 Protein, Total 6.3 - 8.0 g/dL 7.5 7.5 Albumin 3.9 - 4.9 g/dL 4.4 4.5 Calcium 8.5 - 10.2 mg/dL 9.4 9.5 Bilirubin, Total 0.2 - 1.3 mg/dL 0.6 0.6 Alkaline Phosphatase 38 - 113 U/L 49 46 AST 14 - 40 U/L 21 23 ALT 10 - 54 U/L 21 23 Glucose 74 - 99 mg/dL 175 (H) 149 (H) BUN 9 - 24 mg/dL 15 17 Creatinine 0.73 - 1.22 mg/dL 1.00 1.26 (H) Sodium 136 - 144 mmol/L 138 139 Potassium 3.7 - 5.1 mmol/L 4.5 4.5 Chloride 97 - 105 mmol/L 100 100 CO2 22 - 30 mmol/L 30 26 Anion Gap 9 - 18 mmol/L 8 (L) 13 eGFR >=60 mL/min/1.73m 82 62 Color Yellow Yellow Light Yellow Clarity Clear Clear Clear Glucose, Urine Trace, Negative Negative Negative Bilirubin, Urine Negative Negative Negative Ketones, Urine Trace, Negative Negative Negative Specific [place], Ur 1.005 - 1.030 1.021 1.018 Hemoglobin/Blood,Ur Negative, Trace Negative Negative pH, Urine 5.0 - 8.0 6.0 6.0 Protein, Urine Trace, Negative 2+ (A) Trace Urobilinogen Negative Negative Negative Nitrites Negative Negative Negative Leukest Negative, 25 Katey/uL Negative Negative WBC, Urine 0-5 /HPF 0-5 /HPF 0-5 /HPF RBC, Urine 0-3 /HPF 0-3 /HPF 0-3 /HPF Epithelial Cells /HPF Few Total Cholesterol, Nonfasting <200 mg/dL 117 108 120 Triglycerides, Nonfasting <150 mg/dL 108 138 146 HDL Cholesterol, Nonfasting >39 mg/dL 39 (L) 34 (L) 37 (L) LDL Cholesterol, Nonfasting <100 mg/dL 56 46 54 Non HDL Cholesterol, Nonfasting <130 mg/dL 78 74 83 VLDL Cholesterol, Nonfasting <30 mg/dL 22 28 29 Total Chol/HDL Ratio, Nonfasting <5.10 mg/dL 3.00 3.18 3.24 LDL/HDL Ratio, Nonfasting <2.54 mg/dL 1.44 1.35 1.46 Creatinine, Ur Random (UCRR) 20.0 - 300.0 mg/dL 187.0 53.5 119.6 Albumin, Urine Random mg/L 319.2 23.2 75.6 Albumin/Creat Ratio <30 mg/g 171 (H) 43 (H) 63 (H) Hemoglobin A1C 4.3 - 5.6 % 7.6 (H) 6.9 (H) 7.3 (H) Estimated Average Glucose mg/dL 171 151 163 PSA <2.60 ng/mL 0.71 0.71 A/P ASSESSMENT/PLAN: 1. Medicare annual wellness visit, subsequent - ICD9: V70.0, ICD10: Z00.00 (primary diagnosis) - Counseled on healthy diet and regular exercise - Discussed need for and benefit of weight loss. BMI 43.34 kg/(m^2) - Colorectal cancer screening recommended - agrees to Colonoscopy - Follow up for annual exam in one year 2. Type 2 diabetes mellitus without complication, without long-term current use of insulin (HCC) - ICD9: 250.00, ICD10: E11.9 - Uncontrolled - Worsening control - Continue current medications - Start dapagliflozin (Farxiga) 5 mg a day - Blood glucose monitoring on a once daily schedule - Counseled on healthy diet and regular exercise - Discussed need for and benefit of weight loss. BMI 43.34 kg/(m^2) 3. Diabetic eye exam ([facility]) - ICD9: V72.0, 250.00, ICD10: Z01.00, E11.9 - up to date 4. 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) - ICD9: 250.40, 791.0, ICD10: E11.29, R80.9 - see #2 5. Hyperlipidemia, mixed - ICD9: 272.2, ICD10: E78.2 - Controlled - Continue current medications - Counseled on healthy diet and regular exercise 6. Essential hypertension, benign - ICD9: 401.1, ICD10: I10 - Controlled - Continue current medications - Recommend home blood pressure monitoring, to bring results to next visit - Encouraged sodium restriction, DASH or Mediterranean diet - Recommend regular aerobic exercise 7. Morbid obesity with BMI of 40.0-44.9, adult ([facility]) - ICD9: 278.01, V85.41, ICD10: E66.01, Z68.41 Weight decreasing - Behavioral intervention 8. Palpitations - ICD9: 785.1, ICD10: R00.2 - clinically stable 9. Venous stasis dermatitis of both lower extremities - ICD9: 454.1, ICD10: I87.2 - stable no changes. 10. Venous (peripheral) insufficiency - ICD9: 459.81, ICD10: I87.2 - stable no changes. 11. Benign prostatic hyperplasia with urinary frequency - ICD9: 600.01, 788.41, ICD10: N40.1, R35.0 - stable no changes. 12. ED (erectile dysfunction) of organic origin - ICD9: 607.84, ICD10: N52.9 Cont Cialis 13. Family history of pancreatic cancer - ICD9: V16.0, ICD10: Z80.0 - check US 14. History of colonic polyps - ICD9: V12.72, ICD10: Z86.010 - CONSULT TO GENERAL SURGERY: Dr. Kishore De Anda 15. Screening for colon cancer - ICD9: V76.51, ICD10: Z12.11 - CONSULT TO GENERAL SURGERY 16. Eversion deformity of left foot - ICD9: 736.79, ICD10: M21.072 - discussed referral to ortho. Patient declined at this time 17. Left leg pain - ICD9: 729.5, ICD10: M79.605 - as per #16 18. Foot callus - ICD9: 700, ICD10: L84 - advised on care. 19. Neoplasm of uncertain behavior of skin of nose - ICD9: 238.2, ICD10: D48.5 - CONSULT TO DERMATOLOGY 20. Viral illness - ICD9: 079.99, ICD10: B34.9 - Discussed viral etiology and rationale for treatment. - Symptomatic treatment with prn analgesia - Supportive care with fluids and rest Check - COVID & INFLUENZA A/B & RSV NAAT, ROUTINE - COVID NAAT, UPPER RESPIRATORY, ROUTINE - ROUTINE FLU A/B + RSV 21. Suspected COVID-19 virus infection - ICD9: V01.79, ICD10: Z20.822 Check - COVID & INFLUENZA A/B & RSV NAAT, ROUTINE - COVID NAAT, UPPER RESPIRATORY, ROUTINE - ROUTINE FLU A/B + RSV Requested Prescriptions Signed Prescriptions Disp Refills dapagliflozin propanediol (FARXIGA) 5 mg tablet 90 tablet 1 Sig: Take 1 tablet by mouth daily with breakfast. F/u 6 months routine check BMP, Lipid, A1c, Albmin. I spent a total of 40 minutes on the date of the service which included preparing to see the patient, [id number] patient care, completing clinical documentation, performing a medically appropriate examination, counseling and educating the patient/family/caregiver and ordering medications, tests, or procedures. Ean Sow MD documented in this encounter [facility] 01-21-2023 Note HNO ID: [id number] Author: Rupal Briceno MA Service: ? Author Type: Mica Builder Type: Progress Notes Filed: 01/21/2023 5:07 PM Note Text: Scan on 01/11/2023 6:07 PM by External Provider, PAErinC: Consultation - Ophthalmology Hm updated Rupal Briceno MA [facility] 01-21-2023 History of Present illness Narrative Scan on 01/11/2023 6:07 PM by External Provider, KENNA: Consultation - Ophthalmology Hm updated Rupal Briceno MA documented in this encounter [facility] 09-25-2022 Note HNO ID: [id number] Author: Vivi Kelly PA-C Service: ? 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 Patient with hx of HTN, hyperlipidemia, CATHERINE, DM2, obesity, and those as below. No specific concerns today. Home glucose averages around 120s. Last 3 Encounter Wt Readings: Date: Wt: 09/25/2022 147 kg (324 lb) 03/28/2022 149.7 kg (330 lb) 02/26/2022 150.2 kg (331 lb 3.2 oz) Past medical history, appointments, medications, allergies reviewed. Previous Medical History PAST MEDICAL HISTORY Diagnosis Date Advance directive discussed with patient 03/28/2022 Discussed 03/2022 Carpal tunnel syndrome, left 04/12/2017 Cervicalgia 06/26/2017 Diverticulosis of large intestine 05/2018 Esophageal reflux 03/08/2005 Essential hypertension, benign 09/01/2007 Ex-smoker 03/11/2021 Started age 16 up to 1.5-1 PPD quit at age 54 External hemorrhoids without mention of complication 03/08/2005 Generalized osteoarthrosis, unspecified site 03/08/2005 History of colonic polyps 10/13/2007 Hyperlipidemia, mixed 07/14/2010 Internal hemorrhoids without mention of complication 03/08/2005 Morbid obesity with BMI of 40.0-44.9, adult (HCC) 07/06/2010 Palpitations 11/29/2021 Has had for many years Personal history of colonic polyps 2018 Plantar fasciitis 05/02/2018 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) 05/15/2021 Rosacea 03/11/2021 Sleep apnea 09/01/2007 Not using CPAP Stasis dermatitis 07/07/2011 Type 2 diabetes mellitus without complication, without long-term current use of insulin (HCC) 02/11/2016 Uncontrolled type 2 diabetes mellitus with hyperglycemia (HCC) 07/28/2021 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 Venous (peripheral) insufficiency 03/08/2005 Previous Surgical History PAST SURGICAL HISTORY Procedure Laterality Date CHOLECYSTECTOMY 2002 Cholecystectomy COLONOSCOPY FLX DX W/COLLJ SPEC WHEN PFRMD 11-21-07 COLONOSCOPY FLX DX W/COLLJ SPEC WHEN PFRMD 06/13/2018 [facility]-Michael De Anda--Repeat 5 years COLSC FLX W/RMVL OF TUMOR POLYP LESION SNARE TQ 04-23-13 DEBRIDEMENT SUBCUTANEOUS TISSUE 20 SQ CM/< Left 06/27/15 Debridement UIQ left breast infected glenny cyst ENDOVENOUS LASER, 1ST VEIN 11/16/2014 [facility] - see scanned documents ENDOVENOUS LASER, 1ST VEIN 06/05/2015 [facility] - right great saphenous vein NEUROPLASTY AND/TRANSPOS MEDIAN NRV CARPAL TUNNE Carpal tunnel decomp, right STRESS TEST EXERCISE 09/21/2013 Exercise Myocardial Perfusion Stress test TONSILLECTOMY HX under age 12 Family History FAMILY HISTORY Problem Relation Age of Onset Heart Mother CHF, DM Diabetes Mother Cancer Father lung Hypertension Sister Hypertension Brother COPD Brother Patient Allergies ALLERGIES Allergen Reactions Lisinopril Cough Current Medications Current Outpatient Medications on File Prior to Visit Medication Sig blood sugar diagnostic (BLOOD GLUCOSE TEST) test strip Test blood sugar(s) 1-2 times daily. Dx: Type 2 DM - Uncontrolled E11.65 Insulin: No Lancets lancets Test blood sugar(s) 1-2 times daily. Dx: Type 2 DM - Uncontrolled E11.65 Insulin: No metFORMIN (GLUCOPHAGE) 1,000 mg tablet Take 1 tablet by mouth twice daily with meals. losartan (COZAAR) 50 mg tablet Take 2 tablets by mouth once daily. hydroCHLOROthiazide (HYDRODIURIL, ESIDRIX) 25 mg tablet Take 1 tablet by mouth once daily. amLODIPine (NORVASC) 10 mg tablet Take 1 tablet by mouth once daily. atorvastatin (LIPITOR) 20 mg tablet Take 1 tablet by mouth once daily. For cholesterol. glimepiride (AMARYL) 4 mg tablet Take 1 tab twice a day. Tadalafil (CIALIS) 20 mg tab(s) Take 1 tablet by mouth once daily. As needed Aspirin 81 mg tab Take 1 tablet by mouth once daily. Take with food. [place]-3 Fatty Acids-Vitamin E (FISH OIL) 1,000 mg cap Take 1 capsule by mouth once daily. MULTI-VITAMIN ORAL Take by mouth. semaglutide (RYBELSUS) 3 mg tablet Take 1 tablet by mouth daily before breakfast. (Patient not taking: Reported on 09/25/2022) semaglutide (RYBELSUS) 7 mg tablet Take 1 tablet (7 mg) by mouth daily before breakfast. After completing 3 mg dose (Patient not taking: Reported on 09/25/2022) No current facility-administered medications on file prior to visit. Social History Social History Tobacco Use Smoking status: Former Packs/day: 0.50 Years: 30.00 Pack years: 15.00 Types: Cigarettes Quit date: 01/15/2010 Years since quittin.7 Smokeless tobacco: Former Quit date: 05/03/2011 Vaping Use Vaping Use: Never used Substance Use Topics Alcohol use: Yes Comment: very rarely Drug use: No Review of Symptoms REVIEW OF SYSTEMS GENERAL: No weight loss, malaise or fevers NECK: Negative for lumps, goiter, pain and significant neck swelling RESPIRAT (more content not included)... [facility] 09-25-2022 History of Present illness Narrative Chief Complaint Patient presents with: Follow Up: 6 month HPI Jaswant Aguiar is a 66 year old male who presents here today for Chronic Medical Conditions.. Patient with hx of HTN, hyperlipidemia, CATHERINE, DM2, obesity, and those as below. No specific concerns today. Home glucose averages around 120s. Last 3 Encounter Wt Readings: Date: Wt: 09/25/2022 147 kg (324 lb) 03/28/2022 149.7 kg (330 lb) 02/26/2022 150.2 kg (331 lb 3.2 oz) Past medical history, appointments, medications, allergies reviewed. Previous Medical History PAST MEDICAL HISTORY Diagnosis Date Advance directive discussed with patient 03/28/2022 Discussed 03/2022 Carpal tunnel syndrome, left 04/12/2017 Cervicalgia 06/26/2017 Diverticulosis of large intestine 05/2018 Esophageal reflux 03/08/2005 Essential hypertension, benign 09/01/2007 Ex-smoker 03/11/2021 Started age 16 up to 1.5-1 PPD quit at age 54 External hemorrhoids without mention of complication 03/08/2005 Generalized osteoarthrosis, unspecified site 03/08/2005 History of colonic polyps 10/13/2007 Hyperlipidemia, mixed 07/14/2010 Internal hemorrhoids without mention of complication 03/08/2005 Morbid obesity with BMI of 40.0-44.9, adult ([facility]) 07/06/2010 Palpitations 11/29/2021 Has had for many years Personal history of colonic polyps 2018 Plantar fasciitis 05/02/2018 Proteinuria due to type 2 diabetes mellitus ([facility]) 05/15/2021 Rosacea 03/11/2021 Sleep apnea 09/01/2007 Not using CPAP Stasis dermatitis 07/07/2011 Type 2 diabetes mellitus without complication, without long-term current use of insulin ([facility]) 02/11/2016 Uncontrolled type 2 diabetes mellitus with hyperglycemia ([facility]) 07/28/2021 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 Venous (peripheral) insufficiency 03/08/2005 Previous Surgical History PAST SURGICAL HISTORY Procedure Laterality Date CHOLECYSTECTOMY 2002 Cholecystectomy COLONOSCOPY FLX DX W/COLLJ SPEC WHEN PFRMD 11-21-07 COLONOSCOPY FLX DX W/COLLJ SPEC WHEN PFRMD 06/13/2018 [facility]--Repeat 5 years COLSC FLX W/RMVL OF TUMOR POLYP LESION SNARE TQ 04-23-13 DEBRIDEMENT SUBCUTANEOUS TISSUE 20 SQ CM/< Left 06/27/15 Debridement UIQ left breast infected glenny cyst ENDOVENOUS LASER, 1ST VEIN 11/16/2014 [facility] - see scanned documents ENDOVENOUS LASER, 1ST VEIN 06/05/2015 [facility] - right great saphenous vein NEUROPLASTY &/TRANSPOS MEDIAN NRV CARPAL TUNNE Carpal tunnel decomp, right STRESS TEST EXERCISE 09/21/2013 Exercise Myocardial Perfusion Stress test TONSILLECTOMY HX under age 12 Family History FAMILY HISTORY Problem Relation Age of Onset Heart Mother CHF, DM Diabetes Mother Cancer Father lung Hypertension Sister Hypertension Brother COPD Brother Patient Allergies ALLERGIES Allergen Reactions Lisinopril Cough Current Medications Current Outpatient Medications on File Prior to Visit Medication Sig blood sugar diagnostic (BLOOD GLUCOSE TEST) test strip Test blood sugar(s) 1-2 times daily. Dx: Type 2 DM - Uncontrolled E11.65 Insulin: No Lancets lancets Test blood sugar(s) 1-2 times daily. Dx: Type 2 DM - Uncontrolled E11.65 Insulin: No metFORMIN (GLUCOPHAGE) 1,000 mg tablet Take 1 tablet by mouth twice daily with meals. losartan (COZAAR) 50 mg tablet Take 2 tablets by mouth once daily. hydroCHLOROthiazide (HYDRODIURIL, ESIDRIX) 25 mg tablet Take 1 tablet by mouth once daily. amLODIPine (NORVASC) 10 mg tablet Take 1 tablet by mouth once daily. atorvastatin (LIPITOR) 20 mg tablet Take 1 tablet by mouth once daily. For cholesterol. glimepiride (AMARYL) 4 mg tablet Take 1 tab twice a day. Tadalafil (CIALIS) 20 mg tab(s) Take 1 tablet by mouth once daily. As needed Aspirin 81 mg tab Take 1 tablet by mouth once daily. Take with food. [place]-3 Fatty Acids-Vitamin E (FISH OIL) 1,000 mg cap Take 1 capsule by mouth once daily. MULTI-VITAMIN ORAL Take by mouth. semaglutide (RYBELSUS) 3 mg tablet Take 1 tablet by mouth daily before breakfast. (Patient not taking: Reported on 09/25/2022) semaglutide (RYBELSUS) 7 mg tablet Take 1 tablet (7 mg) by mouth daily before breakfast. After completing 3 mg dose (Patient not taking: Reported on 09/25/2022) No current facility-administered medications on file prior to visit. Social History Social History Tobacco Use Smoking status: Former Packs/day: 0.50 Years: 30.00 Pack years: 15.00 Types: Cigarettes Quit date: 01/15/2010 Years since quittin.7 Smokeless tobacco: Former Quit date: 05/03/2011 Vaping Use Vaping Use: Never used Substance Use Topics Alcohol use: Yes Comment: very rarely Drug use: No Review of Symptoms REVIEW OF SYSTEMS GENERAL: No weight loss, malaise or fevers NECK: Negative for lumps, goiter, pain and significant neck swelling RESPIRATORY: Negative for cough, hemoptysis, wheezing, COPD, dyspnea or shortness of breath CARDIOVASCULAR: Negative for chest pain, leg swelling, hypertension, CHF or palpitations NEURO: No history of headaches, syncope, paralysis, seizures or tremors EXAM: BP 136/78 (BP Site: Left Arm, BP Position: Sitting, BP Cuff Size: Large Adult) Pulse (!) 52 Resp 18 Wt (!) 147 kg (324 lb) SpO2 98% BMI 43.94 kg/m General Appearance: Well appearing, alert, in no acute distress, well-hydrated, well nourished.. Neck: Supple, no adenopathy; thyroid symmetric, normal size, no bruits. Lungs: Lungs clear to auscultation. No wheezing, rhonchi, rales.. Heart: RRR without murmur, gallop, or rubs. No ectopy. Extremities: No deformities, edema, skin discoloration, clubbing or cyanosis. Good capillary refill. . Peripheral Pulses: Normal. Health Maintenance List DTAP,TDAP,TD(1 - Tdap) Never done COVID-19 VACCINE(4 - Booster for Pfizer series) due on 07/31/2021 ADVANCE DIRECTIVE DISCUSSION due on 07/15/2022 DEPRESSION ASSESSMENT Never done DIABETIC FOOT EXAM due on 07/28/2022 BP CONTROLLED (<130/80) due on 07/28/2022 SHINGRIX VACCINE(1 of 2) due on 03/28/2023 DILATED RETINAL EXAM due on 01/11/2023 HBA1C due on 03/22/2023 ANNUAL PCP TEAM CHRONIC DISEASE VISIT due on 03/28/2023 PNEUMOCOCCAL: 65+(3 - PPSV23 if available, else PCV20) due on 05/02/2023 COLORECTAL CANCER SCREENING due on 06/13/2023 URINE ALBUMIN:CREATININE RATIO due on 09/20/2023 LDL CHOLESTEROL due on 09/20/2023 PROSTATE CANCER SCREENING DISCUSSION due on 03/21/2027 ABDOMINAL AORTIC ANEURYSM SCREENING Completed INFLUENZA Completed HEPATITIS C SCREENING Discontinued Data reviewed Component Latest Ref Rng & Units 03/21/2022 09/19/2022 Protein, Total 6.3 - 8.0 g/dL 7.5 Albumin 3.9 - 4.9 g/dL 4.4 Calcium 8.5 - 10.2 mg/dL 9.4 Bilirubin, Total 0.2 - 1.3 mg/dL 0.6 Alkaline Phosphatase 38 - 113 U/L 49 AST 14 - 40 U/L 21 ALT 10 - 54 U/L 21 Glucose 74 - 99 mg/dL 175 (H) BUN 9 - 24 mg/dL 15 Creatinine 0.73 - 1.22 mg/dL 1.00 Sodium 136 - 144 mmol/L 138 Potassium 3.7 - 5.1 mmol/L 4.5 Chloride 97 - 105 mmol/L 100 CO2 22 - 30 mmol/L 30 Anion Gap 9 - 18 mmol/L 8 (L) eGFR >=60 mL/min/1.73m 82 Color Yellow Yellow Clarity Clear Clear Glucose, Urine Negative Negative Bilirubin, Urine Negative Negative Ketones, Urine Negative Negative Specific [place], Ur 1.005 - 1.030 1.021 Hemoglobin/Blood,Ur Negative Negative pH, Urine 5.0 - 8.0 6.0 Protein, Urine Negative 2+ (A) Urobilinogen Negative Negative Nitrites Negative Negative Leukest Negative Negative WBC, Urine 0-5 /HPF 0-5 /HPF RBC, Urine 0-3 /HPF 0-3 /HPF Total Cholesterol, Nonfasting <200 mg/dL 117 108 Triglycerides, Nonfasting <150 mg/dL 108 138 HDL Cholesterol, Nonfasting >39 mg/dL 39 (L) 34 (L) LDL Cholesterol, Nonfasting <100 mg/dL 56 46 Non HDL Cholesterol, Nonfasting <130 mg/dL 78 74 VLDL Cholesterol, Nonfasting <30 mg/dL 22 28 Total Chol/HDL Ratio, Nonfasting <5.10 mg/dL 3.00 3.18 LDL/HDL Ratio, Nonfasting <2.54 mg/dL 1.44 1.35 Creatinine, Ur Random (UCRR) 20.0 - 300.0 mg/dL 187.0 53.5 Albumin, Urine Random mg/L 319.2 23.2 Albumin/Creat Ratio <30 mg/g 171 (H) 43 (H) Hemoglobin A1C 4.3 - 5.6 % 7.6 (H) 6.9 (H) Estimated Average Glucose mg/dL 171 151 PSA <2.60 ng/mL 0.71 ASSESSMENT/PLAN: 1. Type 2 diabetes mellitus without complication, without long-term current use of insulin (HCC) - ICD9: 250.00, ICD10: E11.9 (primary diagnosis) - Controlled - Improving control - Continue current medications - Counseled on healthy diet and regular exercise - Discussed need for and benefit of weight loss. BMI 43.94 kg/(m^2) 2. Uncontrolled type 2 diabetes mellitus with hyperglycemia (HCC) - ICD9: 250.02, ICD10: E11.65 As above - ALBUMIN/CREAT RATIO RND UR 3. Hyperlipidemia with target LDL less than 100 - ICD9: 272.4, ICD10: E78.5 - good control - Encouraged following a low carbohydrate, healthy oil intake diet. - Continue current therapy. 4. Essential hypertension, benign - ICD9: 401.1, ICD10: I10 - good control - Continue current medication(s) - Recommended regular aerobic exercise. - Recommend home blood pressure monitoring, to bring results in on next visit - Goal of BP <130/80 - URINALYSIS, WITH MICROSCOPIC - COMP METABOLIC PANEL 5. 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) - ICD9: 250.40, 791.0, ICD10: E11.29, R80.9 - HGB A1C - ALBUMIN/CREAT RATIO RND UR 6. Hyperlipidemia, mixed - ICD9: 272.2, ICD10: E78.2 As above - LIPID PANEL, NONFASTING 7. Diabetic eye exam (HCC) - ICD9: V72.0, 250.00, ICD10: Z01.00, E11.9 - Controlled 8. Morbid obesity with BMI of 40.0-44.9, adult ([facility]) - ICD9: 278.01, V85.41, ICD10: E66.01, Z68.41 Weight decreasing and Stable - Behavioral intervention 9. Prostate disorder - ICD9: 602.9, ICD10: N42.9 - PSA/PROSTSPECAG DIAG 10. Encounter for immunization - ICD9: V03.89, ICD10: Z23 - PFIZER-[employer] COVID-19 BIVALENT BOOSTER VACCINE, AGE 12+ YR Vivi Kelly PA-C documented in this encounter [facility] 07-18-2022 Miscellaneous Notes Patient calls to let provider's office know that his new pharmacy will be [facility]. He will no longer be utilizing [facility]. Updated Clinical information per patient request. Patient will call as prescriptions are needed. Yue Espinoza RN documented in this encounter [facility] 05-07-2022 Miscellaneous Notes Faxed. Rupal Briceno MA Forms completed and ready to be returned. Received paperwork for Test Strips and Lancets. Verified not for Lantus. Rupal Briceno MA Jaswant said his pharmacy sent Dr. Sow paperwork to fill out so he can get his Lantus and test strips. Please call him with an update on status. [phone] documented in this encounter [facility] 04-26-2022 Miscellaneous Notes The following approved medication requests have been transmitted electronically. Requested Prescriptions Signed Prescriptions Disp Refills blood sugar diagnostic (BLOOD GLUCOSE TEST) test strip 100 Strip 11 Sig: Test blood sugar(s) 1-2 times daily. Dx: Type 2 DM - Uncontrolled E11.65 Insulin: No Authorizing Provider: EAN SOW Lancets lancets 100 Each 11 Sig: Test blood sugar(s) 1-2 times daily. Dx: Type 2 DM - Uncontrolled E11.65 Insulin: No Authorizing Provider: EAN SOW MD Patient calls and states that [facility] pharmacy does not have diabetic testing supplies. Patients asking for prescription to be sent to [facility]. Ellie Samaniego RN documented in this encounter [facility] 04-23-2022 Miscellaneous Notes Patient has been identified by name and date of : Yes Requested Prescriptions Pending Prescriptions Disp Refills blood sugar diagnostic (BLOOD GLUCOSE TEST) test strip 100 Strip 11 Sig: Test blood sugar(s) 1-2 times daily. Dx: Type 2 DM - Uncontrolled E11.65 Insulin: No Lancets lancets 100 Each 11 Sig: Test blood sugar(s) 1-2 times daily. Dx: Type 2 DM - Uncontrolled E11.65 Insulin: No metFORMIN (GLUCOPHAGE) 1,000 mg tablet 180 tablet 1 Sig: Take 1 tablet by mouth twice daily with meals. losartan (COZAAR) 50 mg tablet 180 tablet 1 Sig: Take 2 tablets by mouth once daily. hydroCHLOROthiazide (HYDRODIURIL, ESIDRIX) 25 mg tablet 90 tablet 1 Sig: Take 1 tablet by mouth once daily. amLODIPine (NORVASC) 10 mg tablet 90 tablet 1 Sig: Take 1 tablet by mouth once daily. atorvastatin (LIPITOR) 20 mg tablet 90 tablet 1 Sig: Take 1 tablet by mouth once daily. For cholesterol. glimepiride (AMARYL) 4 mg tablet 180 tablet 1 Sig: Take 1 tab twice a day. RX INSTRUCTIONS: Patient aware RX will be sent to pharmacy. No need to notify patient. Rupal Briceno MA Monisha: 03/2022 Nov; Last refill: 11/2021 documented in this encounter [facility] 04-16-2022 Miscellaneous Notes Patient notified and voiced understanding. Rupal Briceno MA Advise patient to continue what he is doing and will see where his A1c is at next visit. Spoke with pt, he stated he never filled Jardiance because it was $1,000. He is just taking Amaryl BID and Metformin BID as well as watching diet better. Has been checking BS in AM, FBS running 101-120, mostly getting readings of 110. Please advise. Filomena Benitez Ma Let patient know insurance will not cover Rybelsus. See if he is ok with my increasing his Jardiance from 10 mg a day to 25 mg a day if so I will send in a new script. He can use up the 10 dose by taking two a day. Received paperwork from [facility] denying Rybelsus 7 mg. See paperwork on PCP desk. Rupal Briceno MA Contacted pharmacy and they indicated that they contacted office and spoke with Triston (nurse) at the [facility] on January 03 in regards to prior. Apparently paperwork was faxed to [phone] and returned to the pharmacist for review. I did ask them to please update Dr. Sow's fax number. Rupal Briceno MA Contacted patient and cancelled 3 mg tablet from [facility]. Rupal Briceno MA Still waiting on paperwork from pharmacy. 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 He is willing to take the 3 mg but the cost is still going to be $800 to 900. Pt states [facility] is sending paper work to have completed to try get a tier reduction. Please watch for paperwork. 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 If not I would suggest we do the 3 mg dose to mail away first. However I would advise he call his mail away company to see how much it will cost. Patient reports the Rybelsus will cost him $800-900. He cannot afford this. Reports the 7 mg Rybelsus should have been sent to the mail order pharmacy, which may be cheaper. Cancelled the 7 mg Rx at [facility]. Asking pcp to send the 7 mg to mail order. Pended. Patient will call insurance to see if they have a cheaper option and let pcp know. documented in this encounter [facility] 04-03-2022 Miscellaneous Notes Please see other phone note regarding prescription. Closing this encounter. Rupal Briceno MA Jaswant Elena Aguiar is calling Ean Sow MD today to advise his insurance is going to fax over a Tier exception form for the doctor to complete on the semaglutide (RYBELSUS) 3 mg tablet Once received please complete and send back. documented in this encounter [facility] 04-02-2022 Miscellaneous Notes Pt notified of Dr Sow's message and instructions. Pt verbalizes understanding. Liu Sims LPN Advise patient I ent in a script for Rybelsus to take 3 mg a day for 30 days then go to 7 mg a day. Advise him to let me know if cost is too high since on my end I do not have that info. The following approved medication requests have been transmitted electronically. Requested Prescriptions Signed Prescriptions Disp Refills semaglutide (RYBELSUS) 3 mg tablet 30 tablet 0 Sig: Take 1 tablet by mouth daily before breakfast. Authorizing Provider: EAN SOW semaglutide (RYBELSUS) 7 mg tablet 90 tablet 1 Sig: Take 1 tablet (7 mg) by mouth daily before breakfast. After completing 3 mg dose Authorizing Provider: EAN SOW MD Patient calls to let provider know that the Jardiance prescription ordered on 03/28/2022 would cost patient $580 for a 3 month supply and that is out of christ[place] range that patient is able to afford. Yue Espinoza RN documented in this encounter [facility] 03-28-2022 Miscellaneous Notes Wylio message sent to pt notifying him of results from PCP. If questions to contact the office. Cynthia Rodríguez Ma Let patient know x-ray of left foot shows some mild arthritis but no fractures. documented in this encounter [facility] 03-28-2022 Instructions Ean Sow MD - 03/28/2022 8:28 AM EDT Consider getting the shingrix vaccine for the prevention of shingles from a local pharmacy. Please get labs and urine test done on or after 09/14/2022 prior to your next visit., documented in this encounter [facility] 03-28-2022 History of Present illness Narrative Medicare Yearly Visit Medical B eligibilty date 12/13/2018 Date of last exam NA PAST MEDICAL HISTORY Diagnosis Date Advance directive discussed with patient 03/28/2022 Discussed 03/2022 Calculus of gallbladder without mention of cholecystitis or obstruction 03/08/2005 Carpal tunnel syndrome, left 04/12/2017 Cervicalgia 06/26/2017 Chest pain, unspecified 03/08/2005 Cholecystitis, unspecified 03/08/2005 Diverticulosis of large intestine 05/2018 Esophageal reflux 03/08/2005 Essential hypertension, benign 09/01/2007 Ex-smoker 03/11/2021 Started age 16 up to 1.5-1 PPD quit at age 54 External hemorrhoids without mention of complication 03/08/2005 Generalized osteoarthrosis, unspecified site 03/08/2005 History of colonic polyps 10/13/2007 Hyperlipidemia, mixed 07/14/2010 Internal hemorrhoids without mention of complication 03/08/2005 Morbid obesity with BMI of 40.0-44.9, adult ([facility]) 07/06/2010 Open wound of knee, leg (except thigh), and ankle, without mention of complication 03/08/2005 Palpitations 11/29/2021 Has had for many years Personal history of colonic polyps 2018 Plantar fasciitis 05/02/2018 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) 05/15/2021 Rosacea 03/11/2021 Sleep apnea 09/01/2007 Not using CPAP Sprain of lumbosacral (joint) (ligament) 03/08/2005 Stasis dermatitis 07/07/2011 Type 2 diabetes mellitus without complication, without long-term current use of insulin (HCC) 02/11/2016 Type 2 diabetes mellitus, without long-term current use of insulin ([facility]) 02/11/2016 Uncontrolled type 2 diabetes mellitus with hyperglycemia ([facility]) 07/28/2021 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) 03/08/2005 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 Venous (peripheral) insufficiency 03/08/2005 PAST SURGICAL HISTORY Procedure Laterality Date CHOLECYSTECTOMY 2003 Cholecystectomy COLONOSCOPY FLX DX W/COLLJ SPEC WHEN PFRMD 11-21-07 COLONOSCOPY FLX DX W/COLLJ SPEC WHEN PFRMD 06/13/2018 [facility] [place]--Repeat 5 years COLSC FLX W/RMVL OF TUMOR POLYP LESION SNARE TQ 04-23-13 DEBRIDEMENT SUBCUTANEOUS TISSUE 20 SQ CM/< Left 06/27/15 Debridement UIQ left breast infected glenny cyst ENDOVENOUS LASER, 1ST VEIN 11/16/2014 [facility] - see scanned documents ENDOVENOUS LASER, 1ST VEIN 06/05/2015 [facility] - right great saphenous vein NEUROPLASTY &/TRANSPOS MEDIAN NRV CARPAL TUNNE Carpal tunnel decomp, right STRESS TEST EXERCISE 09/21/2013 Exercise Myocardial Perfusion Stress test TONSILLECTOMY HX under age 10 ALLERGIES: Lisinopril Medications reviewed: Yes FAMILY HISTORY Problem Relation Age of Onset Heart Mother CHF, DM Diabetes Mother Cancer Father lung Hypertension Sister Hypertension Brother COPD Brother SOCIAL HISTORY: Social History Tobacco Use Smoking status: Former Packs/day: 0.50 Years: 30.00 Pack years: 15.00 Types: Cigarettes Quit date: 01/15/2010 Years since quittin.2 Smokeless tobacco: Former Quit date: 05/03/2011 Substance Use Topics Alcohol use: Yes Drug use: No Jaswant denies regular aerobic exercise. He watches his diet for sodium, low fat and low cholesterol generally not very much. List of current specialists seen: none End of Live Planning discussed including patients advanced directive wishes: Yes I am willing to follow Jaswant's advanced directives. PHQ-2 / Depression screen Depression Screening 05/02/2018 05/06/2019 09/09/2020 03/28/2022 PHQ-2 Score 0 0 0 0 Depression screening tool completed and reviewed. Based on score and interview, patient is not at risk for depression. Screening tool discussed with patient, and I recommended no further intervention at this time. PHQ-2 Score: 0 Functional Ability/Safety Screen 1. Was the patient's timed Up and Go test unsteady or longer than 30 seconds? No 2. Does the patient need help with the phone, transportation, shopping,preparing meals, housework, laundry, medications or managing money? No 3. Does your home have rugs in the hallway, lack of grab bars in the bathroom, lack of handrails on the stairs or have poor lighting? No Hearing Evaluation: normal PHYSICAL EXAM BP 138/78 (BP Site: Left Arm, BP Position: Sitting, BP Cuff Size: Large Adult) Pulse 68 Resp 16 Ht 182.9 cm (6') Wt (!) 149.7 kg (330 lb) BMI 44.76 kg/m Alert and oriented X 3: YES Body mass index is 44.76 kg/m . Visual acuity: see optho See below ASSESSMENT/PLAN: 66 year old male The following prevention plan was discussed during the office visit and provided to the patient: See below Ean Sow MD Chief Complaint Patient presents with: Medicare Wellness Exam HPI Jaswant Aguiar is a 66 year old male who presents here today for Medicare Annual Visit. Patient with Hx of HTN, DM 2, Hyperlipidemia, ex-smoker, Morbid obesity, CATHERINE, venous insufficiency, rosea, arthritis as well as those reviewed and addressed below and in ROS. Patient had a log fall on the top of the left foot about 2 months ago that still hurts at times. Overall pain has improved.. Past medical history, appointments, medications, allergies reviewed. Previous Medical History PAST MEDICAL HISTORY Diagnosis Date Calculus of gallbladder without mention of cholecystitis or obstruction 03/08/2005 Carpal tunnel syndrome, left 04/12/2017 Cervicalgia 06/26/2017 Chest pain, unspecified 03/08/2005 Cholecystitis, unspecified 03/08/2005 Diverticulosis of large intestine 05/2018 Esophageal reflux 03/08/2005 Essential hypertension, benign 09/01/2007 Ex-smoker 03/11/2021 Started age 16 up to 1.5-1 PPD quit at age 54 External hemorrhoids without mention of complication 03/08/2005 Generalized osteoarthrosis, unspecified site 03/08/2005 History of colonic polyps 10/13/2007 Hyperlipidemia, mixed 07/14/2010 Internal hemorrhoids without mention of complication 03/08/2005 Morbid obesity with BMI of 40.0-44.9, adult (HCC) 07/06/2010 Open wound of knee, leg (except thigh), and ankle, without mention of complication 03/08/2005 Palpitations 11/29/2021 Has had for many years Personal history of colonic polyps 2018 Plantar fasciitis 05/02/2018 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) 05/15/2021 Rosacea 03/11/2021 Sleep apnea 09/01/2007 Not using CPAP Sprain of lumbosacral (joint) (ligament) 03/08/2005 Stasis dermatitis 07/07/2011 Type 2 diabetes mellitus without complication, without long-term current use of insulin (HCC) 02/11/2016 Type 2 diabetes mellitus, without long-term current use of insulin (HCC) 02/11/2016 Uncontrolled type 2 diabetes mellitus with hyperglycemia (HCC) 07/28/2021 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) 03/08/2005 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 Venous (peripheral) insufficiency 03/08/2005 Previous Surgical History PAST SURGICAL HISTORY Procedure Laterality Date CHOLECYSTECTOMY 2002 Cholecystectomy COLONOSCOPY FLX DX W/COLLJ SPEC WHEN PFRMD 11-21-07 COLONOSCOPY FLX DX W/COLLJ SPEC WHEN PFRMD 06/13/2018 [facility] [place]--Repeat 5 years COLSC FLX W/RMVL OF TUMOR POLYP LESION SNARE TQ 04-23-13 DEBRIDEMENT SUBCUTANEOUS TISSUE 20 SQ CM/< Left 06/27/15 Debridement UIQ left breast infected glenny cyst ENDOVENOUS LASER, 1ST VEIN 11/16/2014 [facility] - see scanned documents ENDOVENOUS LASER, 1ST VEIN 06/05/2015 [facility] - right great saphenous vein NEUROPLASTY &/TRANSPOS MEDIAN NRV CARPAL TUNNE Carpal tunnel decomp, right STRESS TEST EXERCISE 09/21/2013 Exercise Myocardial Perfusion Stress test TONSILLECTOMY HX under age 10 Family History FAMILY HISTORY Problem Relation Age of Onset Heart Mother CHF, DM Diabetes Mother Cancer Father lung Hypertension Sister Hypertension Brother COPD Brother Patient Allergies ALLERGIES Allergen Reactions Lisinopril Cough Current Medications Current Outpatient Medications on File Prior to Visit Medication Sig glimepiride (AMARYL) 4 mg tablet Take 1.5 tabs in AM and 0.5 tabs in PM metFORMIN (GLUCOPHAGE) 1,000 mg tablet Take 1 tablet by mouth twice daily with meals. losartan (COZAAR) 50 mg tablet Take 2 tablets by mouth once daily. hydroCHLOROthiazide (HYDRODIURIL, ESIDRIX) 25 mg tablet Take 1 tablet by mouth once daily. amLODIPine (NORVASC) 10 mg tablet Take 1 tablet by mouth once daily. atorvastatin (LIPITOR) 20 mg tablet Take 1 tablet by mouth once daily. For cholesterol. blood sugar diagnostic (BLOOD GLUCOSE TEST) test strip Test blood sugar(s) 1-2 times daily. Dx: Type 2 DM - Uncontrolled E11.65 Insulin: No Lancets lancets Test blood sugar(s) 1-2 times daily. Dx: Type 2 DM - Uncontrolled E11.65 Insulin: No metroNIDAZOLE 1 % gel Apply 1 application to affected area once daily. Location: face Aspirin 81 mg tab Take 1 tablet by mouth once daily. Take with food. [place]-3 Fatty Acids-Vitamin E (FISH OIL) 1,000 mg cap Take 1 capsule by mouth once daily. MULTI-VITAMIN ORAL Take by mouth. No current facility-administered medications on file prior to visit. Social History Social History Tobacco Use Smoking status: Former Packs/day: 0.50 Years: 30.00 Pack years: 15.00 Types: Cigarettes Quit date: 01/15/2010 Years since quittin.2 Smokeless tobacco: Former Quit date: 05/03/2011 Substance Use Topics Alcohol use: Yes Drug use: No Review of Symptoms REVIEW OF SYSTEMS GENERAL: No weight loss, malaise or fevers HEENT: Negative for frequent or significant headaches, No changes in hearing or vision, no nose bleeds or other nasal problems. Nose gets congested especially at night. NECK: Negative for lumps, goiter, pain and significant neck swelling RESPIRATORY: Negative for cough, hemoptysis, wheezing, COPD, dyspnea or shortness of breath CARDIOVASCULAR: Negative for chest pain, leg swelling, hypertension, CHF or changes in his occasional palpitations GI: No nausea, vomiting, or diarrhea, No heartburn or reflux symptoms, and no blood : No history of dysuria, blood. Noticing erection is not as firm MUSCULOSKELETAL: Negative for changes in his typical joint pain or swelling, back pain or muscle pain. See HPI SKIN: Negative for l rash, gets some sores on his scalp that itches at times. PSYCH: Negative for sleep disturbance, mood disorder and recent psychosocial stressors HEMATOLOGY/LYMPHOLOGY: Negative for prolonged bleeding, bruising easily or swollen nodes ENDOCRINE: Negative for cold or heat intolerance,gets some low BS's if he does not eat on a regular basis. NEURO: No history of headaches, syncope, paralysis, seizures or tremors EXAM: BP 138/78 (BP Site: Left Arm, BP Position: Sitting, BP Cuff Size: Large Adult) Pulse 68 Resp 16 Ht 182.9 cm (6') Wt (!) 149.7 kg (330 lb) BMI 44.76 kg/m Last 4 Encounter Wt Readings: Date: Wt: 03/28/2022 149.7 kg (330 lb) 02/26/2022 150.2 kg (331 lb 3.2 oz) 12/18/2021 144.5 kg (318 lb 8 oz) 11/29/2021 151.5 kg (334 lb) General Appearance: Well appearing, alert, in no acute distress, well-hydrated, well nourished.. Skin: Skin color, texture, turgor normal, no suspicious rashes or lesions. Has a warty growth on the left upper back. Head: Normocephalic, no masses, lesions, tenderness or abnormalities. Eyes: Anicteric sclera. Pupils are equally round and reactive to light. Extraocular movements are intact. . Ears: External ears, TM's normal, canals clear. Neck: Supple, no adenopathy; thyroid symmetric, normal size, no bruits. Lungs: Lungs clear to auscultation. No wheezing, rhonchi, rales.. Heart: RRR without murmur, gallop, or rubs. No ectopy. Abdomen: Normal abdominal exam, Abdomen soft, non-tender. Bowel sounds normal. No masses, organomegaly. Extremities: No deformities, edema, skin discoloration, clubbing or cyanosis. Good capillary refill. . Musculoskeletal: Spine range of motion normal. Muscular strength intact, No joint swelling, deformity. Mild pain to palpation on the top of the left foot. Peripheral Pulses: Normal. Neurologic: Gait normal. Reflexes normal and symmetric. Sensation to light touch and crainal nerves 2-12 intact.. Genitalia: Normal. Rectal: Normal exam. Prostate enlarged but smooth firm capsule. Health Maintenance List SHINGRIX VACCINE(1 of 2) Never done ADVANCE DIRECTIVE DISCUSSION Never done DEPRESSION SCREENING due on 09/09/2021 COVID-19 VACCINE(4 - Booster for Pfizer series) due on 10/03/2021 DILATED RETINAL EXAM due on 12/06/2021 INFLUENZA(1) due on 03/15/2022 DTAP,TDAP,TD(1 - Tdap) due on 07/28/2022 DIABETIC FOOT EXAM due on 07/28/2022 BP CONTROLLED (<130/80) due on 07/28/2022 HBA1C due on 09/18/2022 ANNUAL PCP TEAM CHRONIC DISEASE VISIT due on 11/29/2022 URINE ALBUMIN:CREATININE RATIO due on 03/21/2023 LDL CHOLESTEROL due on 03/21/2023 PNEUMOCOCCAL: 65+(3 - PPSV23 or PCV20) due on 05/02/2023 COLORECTAL CANCER SCREENING due on 06/13/2023 PROSTATE CANCER SCREENING DISCUSSION due on 03/21/2027 ABDOMINAL AORTIC ANEURYSM SCREENING Completed HEPATITIS C SCREENING Discontinued Data reviewed Component Latest Ref Rng & Units 05/19/2020 05/11/2021 11/29/2021 03/21/2022 WBC 3.70 - 11.00 k/uL 7.38 RBC 4.20 - 6.00 m/uL 5.05 Hemoglobin 13.0 - 17.0 g/dL 13.9 Hematocrit 39.0 - 51.0 % 43.6 MCV 80.0 - 100.0 fL 86.3 MCH 26.0 - 34.0 pg 27.5 MCHC 30.5 - 36.0 g/dL 31.9 RDW-CV 11.5 - 15.0 % 13.2 Platelet Count 150 - 400 k/uL 253 MPV 9.0 - 12.7 fL 10.5 Neut% % 47.8 Abs Neut (ANC) 1.45 - 7.50 k/uL 3.54 Lymph% % 38.8 Abs Lymph 1.00 - 4.00 k/uL 2.86 [place]% % 7.5 Abs [place] <0.87 k/uL 0.55 Eosin% % 4.9 Abs Eosin <0.46 k/uL 0.36 Baso% % 0.7 Abs Baso <0.11 k/uL 0.05 Immature Gran % % 0.3 IMMATURE GRANS (ABS) <0.10 k/uL <0.03 NRBC /100 WBC 0.0 Absolute nRBC <0.01 k/uL <0.01 DTYPE Auto Protein, Total 6.3 - 8.0 g/dL 7.5 Albumin 3.9 - 4.9 g/dL 4.4 Calcium 8.5 - 10.2 mg/dL 9.4 Bilirubin, Total 0.2 - 1.3 mg/dL 0.6 Alkaline Phosphatase 38 - 113 U/L 49 AST 14 - 40 U/L 21 ALT 10 - 54 U/L 21 Glucose 74 - 99 mg/dL 175 (H) BUN 9 - 24 mg/dL 15 Creatinine 0.73 - 1.22 mg/dL 1.00 Sodium 136 - 144 mmol/L 138 Potassium 3.7 - 5.1 mmol/L 4.5 Chloride 97 - 105 mmol/L 100 CO2 22 - 30 mmol/L 30 Anion Gap 9 - 18 mmol/L 8 (L) eGFR >=60 mL/min/1.73m 82 Color Yellow Yellow Clarity Clear Clear Glucose, Urine Negative Negative Bilirubin, Urine Negative Negative Ketones, Urine Negative Negative Specific [place], Ur 1.005 - 1.030 1.021 Hemoglobin/Blood,Ur Negative Negative pH, Urine 5.0 - 8.0 6.0 Protein, Urine Negative 2+ (A) Urobilinogen Negative Negative Nitrites Negative Negative Leukest Negative Negative WBC, Urine 0-5 /HPF 0-5 /HPF RBC, Urine 0-3 /HPF 0-3 /HPF Total Cholesterol, Nonfasting <200 mg/dL 116 117 Triglycerides, Nonfasting <150 mg/dL 175 (H) 108 HDL Cholesterol, Nonfasting >39 mg/dL 36 (L) 39 (L) LDL Cholesterol, Nonfasting <100 mg/dL 45 56 Non HDL Cholesterol, Nonfasting <130 mg/dL 80 78 VLDL Cholesterol, Nonfasting <30 mg/dL 35 (H) 22 Total Chol/HDL Ratio, Nonfasting <5.10 mg/dL 3.22 3.00 LDL/HDL Ratio, Nonfasting <2.54 mg/dL 1.25 1.44 Creatinine, Ur Random (UCRR) 20.0 - 300.0 mg/dL 174.6 187.0 Albumin, Urine Random mg/L 201.8 319.2 Albumin/Creat Ratio <30 mg/g 116 (H) 171 (H) Hemoglobin A1C 4.3 - 5.6 % 7.5 (H) 7.6 (H) Estimated Average Glucose mg/dL 169 171 PSA Screening 0.00 - 2.59 ng/mL 0.51 PSA <2.60 ng/mL 0.71 A/P ASSESSMENT/PLAN: 1. Medicare annual wellness visit, subsequent - ICD9: V70.0, ICD10: Z00.00 (primary diagnosis) - Counseled on healthy diet and regular exercise - Follow up for annual exam in one year 2. Advance directive discussed with patient - ICD9: V65.49, ICD10: Z71.89 Packets provided. 3. Type 2 diabetes mellitus without complication, without long-term current use of insulin (HCC) - ICD9: 250.00, ICD10: E11.9 uncontrolled worsening control - Continue current medications - Add Jardiance 10 mg a day. - patient to work on exercise and weight loss for iproved control. 4. 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) - ICD9: 250.40, 791.0, ICD10: E11.29, R80.9 uncontrolled worsening control - Continue current medications - Add Jardiance 10 mg a day - Encouraged regular aerobic exercise and weight loss - BP goal of <130/80 - LDL goal of <100 5. Essential hypertension, benign - ICD9: 401.1, ICD10: I10 - good control - Continue current medication(s) - Recommended regular aerobic exercise. - Recommend home blood pressure monitoring, to bring results in on next visit - Goal of BP <130/80 6. Hyperlipidemia, mixed - ICD9: 272.2, ICD10: E78.2 - good control - Continue current medication. - Encouraged following a low fat, low cholesterol diet. - Discussed the benefits of regular aerobic exercise and weight loss. - Encouraged following a low carbohydrate, healthy oil intake diet. 7. Venous (peripheral) insufficiency - ICD9: 459.81, ICD10: I87.2 - patient to cont use of support socks. 8. Venous stasis dermatitis of both lower extremities - ICD9: 454.1, ICD10: I87.2 - stable. 9. Benign prostatic hyperplasia with urinary frequency - ICD9: 600.01, 788.41, ICD10: N40.1, R35.0 - will monitor for now. 10. Palpitations - ICD9: 785.1, ICD10: R00.2 - stable 11. Rosacea - ICD9: 695.3, ICD10: L71.9 Cont - METRONIDAZOLE 1 % TOPICAL GEL 12. ED (erectile dysfunction) of organic origin - ICD9: 607.84, ICD10: N52.9 - will try cialis 20 mg prn 13. Morbid obesity with BMI of 40.0-44.9, adult (HCC) - ICD9: 278.01, V85.41, ICD10: E66.01, Z68.41 Weight increasing - Behavioral intervention 14. Foot pain, left - ICD9: 729.5, ICD10: M79.672 Check - XR FOOT GENERAL 3V AP/LAT/OBL LEFT 15. Viral warts, unspecified type - ICD9: 078.10, ICD10: B07.9 - discussed cryo T. Verbal consent provided. Area on left upper back treated with cryo with a 40 sec thaw phase. Patient tolerated well. Requested Prescriptions Signed Prescriptions Disp Refills metroNIDAZOLE (METROGEL) 1 % Topical Gel 60 g 1 Sig: Apply 1 application to affected area once daily. Location: face empagliflozin (JARDIANCE) 10 mg tablet 90 tablet 1 Sig: Take 1 tablet by mouth once daily. Take 1 tablet once daily in the morning glimepiride (AMARYL) 4 mg tablet 180 tablet 1 Sig: Take 1 tab twice a day. Tadalafil (CIALIS) 20 mg tab(s) 30 tablet 1 Sig: Take 1 tablet by mouth once daily. As needed F/u 6 months routine check A1c, urine albumin, and Lipid prior. I spent a total of 40 minutes on the date of the service which included preparing to see the patient, [id number] patient care, completing clinical documentation, performing a medically appropriate examination, counseling and educating the patient/family/caregiver and ordering medications, tests, or procedures. Ean Sow MD documented in this encounter [facility] 03-27-2022 Miscellaneous Notes The following approved medication requests have been transmitted electronically. Requested Prescriptions Signed Prescriptions Disp Refills glimepiride (AMARYL) 4 mg tablet 180 tablet 1 Sig: Take 1.5 tabs in AM and 0.5 tabs in PM Authorizing Provider: VIVI KELLY PA-C Last office visit: 11/29/21 Next appointment scheduled: 03/21/22 Last labs: 03/28/22 Patient phones requesting refills as follows: Requested Prescriptions Pending Prescriptions Disp Refills glimepiride (AMARYL) 4 mg tablet Sig: Take 1.5 tabs in AM and 0.5 tabs in PM Please review and advise. Phuong Alejandro LPN documented in this encounter [facility] 02-26-2022 Instructions Miladys Rangel APRN.CAFETERIA TABLE ATTENDANT - 02/26/2022 11:06 AM EDT covid test ordered You will be notified in 24 -48 hours, results available on MyChart Home isolation until covid results are back Rest, increase water intake Motrin or Tylenol as needed for fever or pain. Salt water gargles, chloraseptic spray or lozenges as needed for sore throat. Warm beverages, honey. Nasal saline spray as needed Cool mist humidifier at night Tylenol (generic acetaminophen) 500 mg-2 tabs every 8 hrs. as needed for fever and aches Ibuprofen 600 mg (3-200mg tablets) every 6 hours -Mucinex (generic is fine) Guaifenesin 1200 mg twice daily to help with cough and to thin out mucus Zyrtec 10 mg By mouth daily at bedtime Benadryl 25 mg at bedtime * Seek medical care immediately, call 911, go to ER if you have chest pain, difficulty breathing, shortness of breath, inability to swallow. documented in this encounter [facility] 02-26-2022 History of Present illness Narrative Subjective The history is provided by the patient. No computer language coder was used. HPI Jaswant Aguiar is a 66 year old male who presents today for CC of sinus pressure, congestion, runny nose, cough, body aches and rash. He denies any new products, nedications or exposure to outdoors. These symptoms started 4 days ago. He has used ibuprofen with short term relief. He did a rapid test that was negative yesterday. He denies any known exposure to covid or other viral illnesses. BP 142/82 Pulse 76 Temp 37.1 C (98.7 F) Resp 20 Wt (!) 150.2 kg (331 lb 3.2 oz) SpO2 96% BMI 43.70 kg/m Social History Tobacco Use Smoking status: Former Packs/day: 0.50 Years: 30.00 Pack years: 15.00 Types: Cigarettes Quit date: 01/15/2010 Years since quittin.1 Smokeless tobacco: Former Quit date: 05/03/2011 Substance Use Topics Alcohol use: Yes Drug use: No PAST MEDICAL HISTORY Diagnosis Date Calculus of gallbladder without mention of cholecystitis or obstruction 03/08/2005 Carpal tunnel syndrome, left 04/12/2017 Cervicalgia 06/26/2017 Chest pain, unspecified 03/08/2005 Cholecystitis, unspecified 03/08/2005 Diverticulosis of large intestine 05/2018 Esophageal reflux 03/08/2005 Essential hypertension, benign 09/01/2007 Ex-smoker 03/11/2021 Started age 16 up to 1.5-1 PPD quit at age 54 External hemorrhoids without mention of complication 03/08/2005 Generalized osteoarthrosis, unspecified site 03/08/2005 History of colonic polyps 10/13/2007 Hyperlipidemia, mixed 07/14/2010 Internal hemorrhoids without mention of complication 03/08/2005 Morbid obesity with BMI of 40.0-44.9, adult ([facility]) 07/06/2010 Open wound of knee, leg (except thigh), and ankle, without mention of complication 03/08/2005 Palpitations 11/29/2021 Has had for many years Personal history of colonic polyps 2018 Plantar fasciitis 05/02/2018 Proteinuria due to type 2 diabetes mellitus ([facility]) 05/15/2021 Rosacea 03/11/2021 Sleep apnea 09/01/2007 Not using CPAP Sprain of lumbosacral (joint) (ligament) 03/08/2005 Stasis dermatitis 07/07/2011 Type 2 diabetes mellitus without complication, without long-term current use of insulin ([facility]) 02/11/2016 Type 2 diabetes mellitus, without long-term current use of insulin ([facility]) 02/11/2016 Uncontrolled type 2 diabetes mellitus with hyperglycemia ([facility]) 07/28/2021 Varicose veins of lower extremities with ulcer ([facility]) 03/08/2005 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 Venous (peripheral) insufficiency 03/08/2005 I have confirmed and edited as necessary, the [facility] Review of Systems Constitutional: Positive for malaise/fatigue. Negative for chills and fever. HENT: Positive for congestion and sinus pain. Negative for ear pain and sore throat. Respiratory: Positive for cough. Negative for sputum production, shortness of breath and wheezing. Cardiovascular: Negative for chest pain. Gastrointestinal: Negative for abdominal pain, diarrhea, nausea and vomiting. Musculoskeletal: Negative for myalgias. Neurological: Negative for headaches. Objective Physical Exam Vitals and nursing note reviewed. HENT: Head: Normocephalic and atraumatic. Right Ear: Tympanic membrane, ear canal and external ear normal. Left Ear: Tympanic membrane, ear canal and external ear normal. Nose: Mucosal edema, congestion and rhinorrhea present. Right Sinus: Frontal sinus tenderness present. No maxillary sinus tenderness. Left Sinus: Frontal sinus tenderness present. No maxillary sinus tenderness. Mouth/Throat: Pharynx: Uvula midline. Posterior oropharyngeal erythema present. No oropharyngeal exudate. Tonsils: No tonsillar abscesses. Cardiovascular: Rate and Rhythm: Normal rate and regular rhythm. Heart sounds: Normal heart sounds. Pulmonary: Effort: Pulmonary effort is normal. Breath sounds: Normal breath sounds. No decreased breath sounds, wheezing, rhonchi or rales. Lymphadenopathy: Head: Right side of head: No submental, submandibular, tonsillar or preauricular adenopathy. Left side of head: No submental, submandibular, tonsillar or preauricular adenopathy. Cervical: No cervical adenopathy. Right cervical: No superficial cervical adenopathy. Left cervical: No superficial cervical adenopathy. Skin: Findings: Erythema and rash present. Rash is macular and papular. ASSESSMENT/PLAN: 1. Suspected COVID-19 virus infection - ICD9: V01.79, ICD10: Z20.822 (primary diagnosis) Home isolation Testing ordered Comfort measures discussed - see patient instructions. When to seek higher level of care Notified in 24-48 hours with results, available on mychart - 2019 CORONAVIRUS 2. Upper respiratory symptom - ICD9: 786.9, ICD10: R09.89 - 2019 CORONAVIRUS 3. Body aches - ICD9: 780.96, ICD10: R52 - 2019 CORONAVIRUS 4. Rash - ICD9: 782.1, ICD10: R21 Probable viral, possible contact derm Zyrtec/benadryl prn Monitor, if worsens follow up with pcp Diagnosis and treatment plan were discussed and questions were answered to the patient's satisfaction. Pt acknowledged understanding of concepts and follow up plan. Specific signs and symptoms that would indicate the need for higher level of care were discussed in detail warranting prompt ER evaluation. Miladys Rangel APRN.TARAN documented in this encounter [facility] 12-18-[address] - 12/18/2021 11:28 AM EDT 1. Follow a consistent carbohydrate controlled diet 2. Consistent carbohydrate intake of ~3 carbs per meal ~45 grams and 1 carb per evening snack or 15 grams. 3 Consume whole grains (whole wheat, oatmeal, bran flakes, popcorn) 4 Consume fresh or frozen fruits and vegetables. 5 Use lean meats (poultry, fish, lean beef or pork). 6 Use calorie-free or sugar-free beverages. 7 Use healthy fats: [place] oil, canola oil, walnuts, ground flaxseed or flaxseed oil, almonds, sunflower/pumpkin seeds, butter spray, margarine with no trans fatty acids, cooking spray. 8 Keep a food journal week to monitor food choices and diet plan adherence. 9 Increase physical activity - Minimum of 30-45 minutes per day for 5-6 times per week. 10. Weigh and measure your serving sizes until you are comfortable with visibly estimating accurate portion sizes documented in this encounter [facility] 12-18-2021 History of Present illness Narrative Nutrition Therapy Initial Assessment Nutrition Diagnosis: Behavioral-Environmental: Food and nutrition related knowledge deficit, related to, lack of prior exposure to information , as evidenced by new medical diagnosis. RECOMMENDED MALNUTRITION DIAGNOSIS: NO MALNUTRITION IDENTIFIED NUTRITION CARE PLAN Nutrition Intervention 12/18/2021: comprehensive nutrition education 1. Follow a consistent carbohydrate controlled diet 2. Consistent carbohydrate intake of ~3 carbs per meal ~45 grams and 1 carb per evening snack or 15 grams. 3 Consume whole grains (whole wheat, oatmeal, bran flakes, popcorn) 4 Consume fresh or frozen fruits and vegetables. 5 Use lean meats (poultry, fish, lean beef or pork). 6 Use calorie-free or sugar-free beverages. 7 Use healthy fats: [place] oil, canola oil, walnuts, ground flaxseed or flaxseed oil, almonds, sunflower/pumpkin seeds, butter spray, margarine with no trans fatty acids, cooking spray. 8 Keep a food journal week to monitor food choices and diet plan adherence. 9 Increase physical activity - Minimum of 30-45 minutes per day for 5-6 times per week. 10. Weigh and measure your serving sizes until you are comfortable with visibly estimating accurate portion sizes. Nutrition Monitoring & Evaluation: labs in target range Need for Follow up: 4-6 weeks Patient presents for initial MNT as relates to new diagnosis diabetes, on Amaryl and Metformin for control. Patient's symptoms are: Weight Concerns: failure to lose weight HgA1c 7.5 Diet History: 127 Breakfast - oatmeal and toast; weekengs sausage, eggs and potatoes; coffee with milk Snack - occ cheese stick 80 Lunch - soup and crackers; low Sodium chicken and rice and crackers; water Snack - bit size candy (couple), or fruit or cheese or crackers Dinner - pork chops with baked beans, left overs; usually salad and meat and green beans or corn; hamburgers/cheese; water Snack - occ. May have small ice cream cone if hot out . Beverages - coffee, water, diet soda if having pizza Alcohol- limited, occ beer Vitamins/Supplements - see medlist Activity: Activities of Daily Living: varies Additional Activity: Lightly active (Light exercise: planned physical activity 1-3 days/week) Yard work lately Mow - lately two x per week Has equipment bought bikes Anthropometrics: Height: Last 1 Encounter Ht Readings: Date: Ht: 12/18/2021 185.4 cm (6' 1 ) Current weight: Last 1 Encounter Wt Readings: Date: Wt: 12/18/2021 144.5 kg (318 lb 8 oz) Body mass index is 42.02 kg/m . Resting Metabolic Rate: 2277 Malnutrition Screening Significant unintentional weight loss? No Eating less than 75% of usual intake for more than 2 weeks? No Potential Signs of Inflammation: no identifiable sources Education Materials Provided: Healthy You - Planning Healthy Meals (blue cover) READINESS TO LEARN Cognitive ability: Alert and oriented Motivation to learn: Interested Family support: High - Very involved in pt care Instruction provided to: Patient and Spouse Patient learns best by: Individual Instruction Factors affecting learning: None Physical limitations affecting learning: None Referred/Supervised by: Santiago/Ginger MNT Billing Type: Initial Assess/15 min 2 units SIGNATURE: Carito Landaverde RD PATIENT NAME: Jaswant Aguiar DATE: December 18, 2021 TIME: 11:06 AM documented in this encounter [facility] 11-29-2021 Instructions Ean Sow MD - 11/29/2021 1:52 PM EDT Please get labs and urine test done on or after 03/16/2022 prior to your next visit. For the Glimepiride Take 1.5 tabs in AM and 0.5 tabs in PM documented in this encounter [facility] 11-29-2021 History of Present illness Narrative Chief Complaint Patient presents with: Recheck: 4 months HPI Jaswant Aguiar is a 65 year old male who presents here today for Chronic Medical Conditions.. Patient with Hx of HTN, DM 2, Hyperlipidemia, ex-smoker, Morbid obesity, CATHERINE, venous insufficiency, rosea, arthritis as well as those reviewed and addressed below and in ROS. Patient has had a few low BS's over the past few months. Has not really lost any weight and doing some exercise. Portion sizes are not well controlled. Past medical history, appointments, medications, allergies reviewed. Previous Medical History PAST MEDICAL HISTORY Diagnosis Date Calculus of gallbladder without mention of cholecystitis or obstruction 03/08/2005 Carpal tunnel syndrome, left 04/12/2017 Cervicalgia 06/26/2017 Chest pain, unspecified 03/08/2005 Cholecystitis, unspecified 03/08/2005 Diverticulosis of large intestine 05/2018 Esophageal reflux 03/08/2005 Essential hypertension, benign 09/01/2007 Ex-smoker 03/11/2021 Started age 16 up to 1.5-1 PPD quit at age 54 External hemorrhoids without mention of complication 03/08/2005 Generalized osteoarthrosis, unspecified site 03/08/2005 History of colonic polyps 10/13/2007 Hyperlipidemia, mixed 07/14/2010 Internal hemorrhoids without mention of complication 03/08/2005 Morbid obesity with BMI of 40.0-44.9, adult (HCC) 07/06/2010 Open wound of knee, leg (except thigh), and ankle, without mention of complication 03/08/2005 Personal history of colonic polyps 2018 Plantar fasciitis 05/02/2018 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) 05/15/2021 Rosacea 03/11/2021 Sleep apnea 09/01/2007 Not using CPAP Sprain of lumbosacral (joint) (ligament) 03/08/2005 Stasis dermatitis 07/07/2011 Type 2 diabetes mellitus without complication, without long-term current use of insulin (HCC) 02/11/2016 Type 2 diabetes mellitus, without long-term current use of insulin (HCC) 02/11/2016 Uncontrolled type 2 diabetes mellitus with hyperglycemia ([facility]) 07/28/2021 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) 03/08/2005 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 Venous (peripheral) insufficiency 03/08/2005 Previous Surgical History PAST SURGICAL HISTORY Procedure Laterality Date CHOLECYSTECTOMY 2002 Cholecystectomy COLONOSCOPY FLX DX W/COLLJ SPEC WHEN PFRMD 11-21-07 COLONOSCOPY FLX DX W/COLLJ SPEC WHEN PFRMD 06/13/2018 [facility]-Michael De Anda--Repeat 5 years COLSC FLX W/RMVL OF TUMOR POLYP LESION SNARE TQ 04-23-13 DEBRIDEMENT SUBCUTANEOUS TISSUE 20 SQ CM/< Left 06/27/15 Debridement UIQ left breast infected glenny cyst ENDOVENOUS LASER, 1ST VEIN 11/16/2014 [facility] - see scanned documents ENDOVENOUS LASER, 1ST VEIN 06/05/2015 [facility] - right great saphenous vein NEUROPLASTY &/TRANSPOS MEDIAN NRV CARPAL TUNNE Carpal tunnel decomp, right STRESS TEST EXERCISE 09/21/2013 Exercise Myocardial Perfusion Stress test TONSILLECTOMY HX under age 12 Family History FAMILY HISTORY Problem Relation Age of Onset Heart Mother CHF, DM Diabetes Mother Cancer Father lung Hypertension Sister Hypertension Brother COPD Brother Patient Allergies ALLERGIES Allergen Reactions Lisinopril Cough Current Medications Current Outpatient Medications on File Prior to Visit Medication Sig glimepiride (AMARYL) 4 mg tablet Take 1 tablet by mouth twice daily with meals. blood sugar diagnostic (BLOOD GLUCOSE TEST) test strip Test blood sugar(s) 1-2 times daily. Dx: Type 2 DM - Uncontrolled E11.65 Insulin: No hydroCHLOROthiazide (HYDRODIURIL, ESIDRIX) 25 mg tablet Take 1 tablet by mouth once daily. amLODIPine (NORVASC) 10 mg tablet Take 1 tablet by mouth once daily. metFORMIN (GLUCOPHAGE) 1,000 mg tablet Take 1 tablet by mouth twice daily with meals. atorvastatin (LIPITOR) 20 mg tablet Take 1 tablet by mouth once daily. For cholesterol. losartan (COZAAR) 50 mg tablet Take 2 tablets by mouth once daily. Aspirin 81 mg tab Take 1 tablet by mouth once daily. Take with food. [place]-3 Fatty Acids-Vitamin E (FISH OIL) 1,000 mg cap Take 1 capsule by mouth once daily. MULTI-VITAMIN ORAL Take by mouth. Lancets lancets Test blood sugar(s) 1-2 times daily. Dx: Type 2 DM - Uncontrolled E11.65 Insulin: No metroNIDAZOLE 1 % gel Apply 1 application to affected area once daily. Location: face No current facility-administered medications on file prior to visit. Social History Social History Tobacco Use Smoking status: Former Smoker Packs/day: 0.50 Years: 30.00 Pack years: 15.00 Types: Cigarettes Quit date: 01/15/2010 Years since quittin.8 Smokeless tobacco: Former User Quit date: 05/03/2011 Substance Use Topics Alcohol use: Yes Drug use: No Review of Symptoms REVIEW OF SYSTEMS GENERAL: No weight loss, malaise or fevers NECK: Negative for lumps, goiter, pain and significant neck swelling RESPIRATORY: Negative for cough, hemoptysis, wheezing, COPD, dyspnea or shortness of breath CARDIOVASCULAR: Negative for chest pain, leg swelling, hypertension, CHF or changes in his occasional palpitations GI: No nausea, vomiting, or diarrhea and No frequent heartburn or reflux symptoms : No history of dysuria, frequency or incontinence ENDOCRINE: See HPI NEURO: No history of headaches, syncope, paralysis, seizures or tremors Skin: Has a pimple on the tip of his nose that scab came off and now has a yellow are. Slightly sore EXAM: BP 138/80 Pulse 78 Resp 14 Wt (!) 151.5 kg (334 lb) BMI 44.07 kg/m Last 6 Encounter Wt Readings: Date: Wt: 11/29/2021 151.5 kg (334 lb) 07/28/2021 152 kg (335 lb) 06/13/2021 152.4 kg (336 lb) 03/11/2021 153.3 kg (338 lb) 09/12/2020 153.3 kg (338 lb) 09/09/2020 152.4 kg (336 lb) General Appearance: Well appearing, alert, in no acute distress, well-hydrated, well nourished.. Skin: has a infected pimple on the tip of his nose. . Eyes: Anicteric sclera. Pupils are equally round and reactive to light. Extraocular movements are intact. . Neck: Supple, no adenopathy; thyroid symmetric, normal size, no bruits. Lungs: Lungs clear to auscultation. No wheezing, rhonchi, rales.. Heart: RRR without murmur, gallop, or rubs. No ectopy. Abdomen: Normal abdominal exam, Abdomen soft, non-tender. Bowel sounds normal. No masses, organomegaly. Extremities: No deformities, edema, skin discoloration. Musculoskeletal: Spine range of motion normal. Muscular strength intact, No joint swelling, deformity, or tenderness. Peripheral Pulses: Normal. Neurologic: Gait normal. Sensation to light touch and crainal nerves 2-12 intact.. Health Maintenance List SHINGRIX VACCINE(1 of 2) Never done ADVANCE DIRECTIVE DISCUSSION Never done DEPRESSION SCREENING due on 09/09/2021 COVID-19 VACCINE(4 - Booster for Pfizer series) due on 10/03/2021 HBA1C due on 10/26/2021 DILATED RETINAL EXAM due on 12/06/2021 DTAP,TDAP,TD(1 - Tdap) due on 07/28/2022 URINE ALBUMIN:CREATININE RATIO due on 05/11/2022 LDL CHOLESTEROL due on 05/11/2022 DIABETIC FOOT EXAM due on 07/28/2022 ANNUAL PCP TEAM CHRONIC DISEASE VISIT due on 07/28/2022 BP CONTROLLED (<130/80) due on 07/28/2022 PNEUMOVAX AGE 65 AND OVER WITH 5YR LOOKBACK(1) due on 05/02/2023 COLORECTAL CANCER SCREENING due on 06/13/2023 PROSTATE CANCER SCREENING DISCUSSION due on 05/19/2025 ABDOMINAL AORTIC ANEURYSM SCREENING Completed INFLUENZA Completed MENINGOCOCCAL CONJUGATE Aged Out HEPATITIS C SCREENING Discontinued Data reviewed Component Latest Ref Rng & Units 05/11/2021 07/28/2021 WBC 3.70 - 11.00 k/uL 6.70 RBC 4.20 - 6.00 m/uL 5.24 Hemoglobin 13.0 - 17.0 g/dL 14.2 Hematocrit 39.0 - 51.0 % 45.3 MCV 80.0 - 100.0 fL 86.5 MCH 26.0 - 34.0 pG 27.1 MCHC 30.5 - 36.0 g/dL 31.3 RDW-CV 11.5 - 15.0 % 13.2 Platelet Count 150 - 400 k/uL 247 MPV 9.0 - 12.7 fL 10.4 Neut% % 51.6 Abs Neut (ANC) 1.45 - 7.50 k/uL 3.44 Lymph% % 36.9 Abs Lymph 1.00 - 4.00 k/uL 2.47 [place]% % 6.3 Abs [place] <0.87 k/uL 0.42 Eosin% % 4.5 Abs Eosin <0.46 k/uL 0.30 Baso% % 0.7 Abs Baso <0.11 k/uL 0.05 Nucleated Reds 0 /100 WBC 0.0 Absolute nRBC <0.01 k/uL <0.01 Diff Type Auto Diff Protein, Total 6.3 - 8.0 g/dL 6.5 Albumin 3.9 - 4.9 g/dL 4.5 Calcium 8.5 - 10.2 mg/dL 9.2 Bilirubin, Total 0.2 - 1.3 mg/dL 0.6 Alkaline Phosphatase 38 - 113 U/L 52 AST 14 - 40 U/L 26 Glucose 74 - 99 mg/dL 160 (H) BUN 9 - 24 mg/dL 16 Creatinine 0.73 - 1.22 mg/dL 0.94 Sodium 136 - 144 mmol/L 137 Potassium 3.7 - 5.1 mmol/L 4.2 Chloride 97 - 105 mmol/L 98 CO2 22 - 30 mmol/L 27 Anion Gap 9 - 18 mmol/L 12 ALT 10 - 54 U/L 29 eGFR- >60 eGFR-All Other Races . >60 Total Cholesterol, Nonfasting <200 mg/dL 121 Triglycerides, Nonfasting <150 mg/dL 119 HDL Cholesterol, Nonfasting >39 mg/dL 37 (L) LDL Cholesterol, Nonfasting <100 mg/dL 60 Non HDL Cholesterol, Nonfasting <130 mg/dL 84 VLDL Cholesterol, Nonfasting <30 mg/dL 24 Total Chol/HDL Ratio, Nonfasting <5.10 mg/dL 3.27 LDL/HDL Ratio, Nonfasting <2.54 mg/dL 1.62 Hemoglobin A1C 4.3 - 5.6 % 8.0 (H) 8.0 (H) Estimated Average Glucose mg/dL 183 183 A/P ASSESSMENT/PLAN: 1. 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) - ICD9: 250.40, 791.0, ICD10: E11.29, R80.9 (primary diagnosis) Will await labs to determine if changes needed. - Continue current medications. Change the Amaryl to Take 1.5 tabs in AM and 0.5 tabs in PM - Encouraged regular aerobic exercise and weight loss - Discussed diabetic education issues of superintendent container terminal diabetic complications, medications- side effects and need for compliance and importance of exercise with patient. - BP goal of <130/80 - LDL goal of <100 - Nutrition consult. 2. Type 2 diabetes mellitus without complication, without long-term current use of insulin (HCC) - ICD9: 250.00, ICD10: E11.9 - As above. - METFORMIN 1,000 MG TABLET - HGB A1C - LIPID PANEL, NONFASTING - CONSULT TO NUTRITION THERAPY 3. Essential hypertension, benign - ICD9: 401.1, ICD10: I10 - good control - Continue current medication(s) - Recommended regular aerobic exercise. - Recommend home blood pressure monitoring, to bring results in on next visit - Goal of BP <130/80 - HYDROCHLOROTHIAZIDE 25 MG TABLET - AMLODIPINE 10 MG TABLET - LIPID PANEL, NONFASTING 4. Hyperlipidemia with target LDL less than 100 - ICD9: 272.4, ICD10: E78.5 - to be determined upon return of lab results - Encouraged following a low fat, low cholesterol diet. - Discussed the benefits of regular aerobic exercise and weight loss. - Encouraged following a low carbohydrate, healthy oil intake diet. - Continue current therapy. - ATORVASTATIN 20 MG TABLET - LIPID PANEL, NONFASTING 5. Hyperlipidemia, mixed - ICD9: 272.2, ICD10: E78.2 As above 6. Morbid obesity with BMI of 40.0-44.9, adult (HCC) - ICD9: 278.01, V85.41, ICD10: E66.01, Z68.41 Stable - Behavioral intervention 7. Venous (peripheral) insufficiency - ICD9: 459.81, ICD10: I87.2 - stable 8. Venous stasis dermatitis of both lower extremities - ICD9: 454.1, ICD10: I87.2 Stable 9. Uncontrolled type 2 diabetes mellitus with hyperglycemia (HCC) - ICD9: 250.02, ICD10: E11.65 - as per #1 10. Palpitations - ICD9: 785.1, ICD10: R00.2 - No changes or symptoms. 11. Cellulitis of skin - ICD9: 682.9, ICD10: L03.90 - Begin treatment with Cefadroxil (Duricef) Signed Prescriptions Disp Refills metFORMIN (GLUCOPHAGE) 1,000 mg tablet 180 tablet 1 Sig: Take 1 tablet by mouth twice daily with meals. CLYDE: No losartan (COZAAR) 50 mg tablet 180 tablet 1 Sig: Take 2 tablets by mouth once daily. CLYDE: No hydroCHLOROthiazide (HYDRODIURIL, ESIDRIX) 25 mg tablet 90 tablet 1 Sig: Take 1 tablet by mouth once daily. CLYDE: No amLODIPine (NORVASC) 10 mg tablet 90 tablet 1 Sig: Take 1 tablet by mouth once daily. CLYDE: No atorvastatin (LIPITOR) 20 mg tablet 90 tablet 1 Sig: Take 1 tablet by mouth once daily. For cholesterol. CLYDE: No glimepiride (AMARYL) 4 mg tablet Sig: Take 1.5 tabs in AM and 0.5 tabs in PM CLYDE: No F/u 4 months WAE check CMP, Lipid, UA, Urine micro albumin, A1c, CBC, PSA Ean Sow MD documented in this encounter [facility] documented as of this encounter (statuses as of 11/30/2021) [facility]12-[facility]2010 History of Past illness Narrative* Problem Noted Date Resolved Date Carpal tunnel syndrome on left 07/06/2010 0 09/21/2014 Internal hemorrhoids without mention of complica tion 03/08/2005 09/21/2014 External hemorrhoids without mention of complica tion 03/08/2005 09/21/2014 Sprain of lumbosacral (joint) (ligament) 005 09/21/2014 Open wound of knee, leg (exc ept thigh), and ankle, without mention of complication 03/08/2005 09/21/2014 Chest pain, unspecified 03/08/2005 09/22/19 15 Esophageal reflux 03/08/2005 09/21/2014 Calculus of gallbladder with out mention of cholecystitis or obstruction 03/08/2005 09/21/2014 Cholecystitis, unspecified 03/08/200509/21 Varicose veins of lower extremities with ulcer 0 03/08/2005 09/21/2014 documented as of this encounter (statuses as of 12/18/2021) [facility] History of Past illness Narrative* Problem Noted Date Resolved Date Carpal tunnel syndrome on left 07/06/2010 0 09/21/2014 Internal hemorrhoids without mention of complica tion 03/08/2005 09/21/2014 External hemorrhoids without mention of complica tion 03/08/2005 09/21/2014 Sprain of lumbosacral (joint) (ligament) 005 09/21/2014 Open wound of knee, leg (exc ept thigh), and ankle, without mention of complication 03/08/2005 09/21/2014 Chest pain, unspecified 03/08/2005 09/22/19 15 Esophageal reflux 03/08/2005 09/21/2014 Calculus of gallbladder with out mention of cholecystitis or obstruction 03/08/2005 09/21/2014 Cholecystitis, unspecified 03/08/200509/21 Varicose veins of lower extremities with ulcer 0 03/08/2005 09/21/2014 documented as of this encounter (statuses as of 02/26/2022) [facility] History of Past illness Narrative* Problem Noted Date Resolved Date Carpal tunnel syndrome on left 07/06/2010 0 09/21/2014 Internal hemorrhoids without mention of complica tion 03/08/2005 09/21/2014 External hemorrhoids without mention of complica tion 03/08/2005 09/21/2014 Sprain of lumbosacral (joint) (ligament) 005 09/21/2014 Open wound of knee, leg (exc ept thigh), and ankle, without mention of complication 03/08/2005 09/21/2014 Chest pain, unspecified 03/08/2005 09/22/19 15 Esophageal reflux 03/08/2005 09/21/2014 Calculus of gallbladder with out mention of cholecystitis or obstruction 03/08/2005 09/21/2014 Cholecystitis, unspecified 03/08/200509/21 Varicose veins of lower extremities with ulcer 0 03/08/2005 09/21/2014 documented as of this encounter (statuses as of 03/27/2022) [facility] History of Past illness Narrative* Problem Noted Date Resolved Date Carpal tunnel syndrome on left 07/06/2010 0 09/21/2014 Internal hemorrhoids without mention of complica tion 03/08/2005 09/21/2014 External hemorrhoids without mention of complica tion 03/08/2005 09/21/2014 Sprain of lumbosacral (joint) (ligament) 005 09/21/2014 Open wound of knee, leg (exc ept thigh), and ankle, without mention of complication 03/08/2005 09/21/2014 Chest pain, unspecified 03/08/2005 09/22/19 15 Esophageal reflux 03/08/2005 09/21/2014 Calculus of gallbladder with out mention of cholecystitis or obstruction 03/08/2005 09/21/2014 Cholecystitis, unspecified 03/08/200509/21 Varicose veins of lower extremities with ulcer 0 03/08/2005 09/21/2014 documented as of this encounter (statuses as of 03/28/2022) [facility] History of Past illness Narrative* Problem Noted Date Resolved Date Carpal tunnel syndrome on left 07/06/2010 0 09/21/2014 Internal hemorrhoids without mention of complica tion 03/08/2005 09/21/2014 External hemorrhoids without mention of complica tion 03/08/2005 09/21/2014 Sprain of lumbosacral (joint) (ligament) 005 09/21/2014 Open wound of knee, leg (exc ept thigh), and ankle, without mention of complication 03/08/2005 09/21/2014 Chest pain, unspecified 03/08/2005 09/22/19 15 Esophageal reflux 03/08/2005 09/21/2014 Calculus of gallbladder with out mention of cholecystitis or obstruction 03/08/2005 09/21/2014 Cholecystitis, unspecified 03/08/200509/21 Varicose veins of lower extremities with ulcer 0 03/08/2005 09/21/2014 documented as of this encounter (statuses as of 03/29/2022) [facility] History of Past illness Narrative* Problem Noted Date Resolved Date Carpal tunnel syndrome on left 07/06/2010 0 09/21/2014 Internal hemorrhoids without mention of complica tion 03/08/2005 09/21/2014 External hemorrhoids without mention of complica tion 03/08/2005 09/21/2014 Sprain of lumbosacral (joint) (ligament) 005 09/21/2014 Open wound of knee, leg (exc ept thigh), and ankle, without mention of complication 03/08/2005 09/21/2014 Chest pain, unspecified 03/08/2005 09/22/19 15 Esophageal reflux 03/08/2005 09/21/2014 Calculus of gallbladder with out mention of cholecystitis or obstruction 03/08/2005 09/21/2014 Cholecystitis, unspecified 03/08/200509/21 Varicose veins of lower extremities with ulcer 0 03/08/2005 09/21/2014 documented as of this encounter (statuses as of 04/02/2022) [place] [id number] History of Past illness Narrative* Problem Noted Date Resolved Date Carpal tunnel syndrome on left 07/06/2010 0 09/21/2014 Internal hemorrhoids without mention of complica tion 03/08/2005 09/21/2014 External hemorrhoids without mention of complica tion 03/08/2005 09/21/2014 Sprain of lumbosacral (joint) (ligament) 005 09/21/2014 Open wound of knee, leg (exc ept thigh), and ankle, without mention of complication 03/08/2005 09/21/2014 Chest pain, unspecified 03/08/2005 09/22/19 15 Esophageal reflux 03/08/2005 09/21/2014 Calculus of gallbladder with out mention of cholecystitis or obstruction 03/08/2005 09/21/2014 Cholecystitis, unspecified 03/08/200509/21 Varicose veins of lower extremities with ulcer 0 03/08/2005 09/21/2014 documented as of this encounter (statuses as of 04/03/2022) [facility] History of Past illness Narrative* Problem Noted Date Resolved Date Carpal tunnel syndrome on left 07/06/2010 0 09/21/2014 Internal hemorrhoids without mention of complica tion 03/08/2005 09/21/2014 External hemorrhoids without mention of complica tion 03/08/2005 09/21/2014 Sprain of lumbosacral (joint) (ligament) 005 09/21/2014 Open wound of knee, leg (exc ept thigh), and ankle, without mention of complication 03/08/2005 09/21/2014 Chest pain, unspecified 03/08/2005 09/22/19 15 Esophageal reflux 03/08/2005 09/21/2014 Calculus of gallbladder with out mention of cholecystitis or obstruction 03/08/2005 09/21/2014 Cholecystitis, unspecified 03/08/200509/21 Varicose veins of lower extremities with ulcer 0 03/08/2005 09/21/2014 documented as of this encounter (statuses as of 04/17/2022) [place] [id number] History of Past illness Narrative* Problem Noted Date Resolved Date Carpal tunnel syndrome on left 07/06/2010 0 09/21/2014 Internal hemorrhoids without mention of complica tion 03/08/2005 09/21/2014 External hemorrhoids without mention of complica tion 03/08/2005 09/21/2014 Sprain of lumbosacral (joint) (ligament) 005 09/21/2014 Open wound of knee, leg (exc ept thigh), and ankle, without mention of complication 03/08/2005 09/21/2014 Chest pain, unspecified 03/08/2005 09/22/19 15 Esophageal reflux 03/08/2005 09/21/2014 Calculus of gallbladder with out mention of cholecystitis or obstruction 03/08/2005 09/21/2014 Cholecystitis, unspecified 03/08/200509/21 Varicose veins of lower extremities with ulcer 0 03/08/2005 09/21/2014 documented as of this encounter (statuses as of 04/23/2022) [facility] History of Past illness Narrative* Problem Noted Date Resolved Date Carpal tunnel syndrome on left 07/06/2010 0 09/21/2014 Internal hemorrhoids without mention of complica tion 03/08/2005 09/21/2014 External hemorrhoids without mention of complica tion 03/08/2005 09/21/2014 Sprain of lumbosacral (joint) (ligament) 005 09/21/2014 Open wound of knee, leg (exc ept thigh), and ankle, without mention of complication 03/08/2005 09/21/2014 Chest pain, unspecified 03/08/2005 09/22/19 15 Esophageal reflux 03/08/2005 09/21/2014 Calculus of gallbladder with out mention of cholecystitis or obstruction 03/08/2005 09/21/2014 Cholecystitis, unspecified 03/08/200509/21 Varicose veins of lower extremities with ulcer 0 03/08/2005 09/21/2014 documented as of this encounter (statuses as of 04/26/2022) [facility] History of Past illness Narrative* Problem Noted Date Resolved Date Carpal tunnel syndrome on left 07/06/2010 0 09/21/2014 Internal hemorrhoids without mention of complica tion 03/08/2005 09/21/2014 External hemorrhoids without mention of complica tion 03/08/2005 09/21/2014 Sprain of lumbosacral (joint) (ligament) 005 09/21/2014 Open wound of knee, leg (exc ept thigh), and ankle, without mention of complication 03/08/2005 09/21/2014 Chest pain, unspecified 03/08/2005 09/22/19 15 Esophageal reflux 03/08/2005 09/21/2014 Calculus of gallbladder with out mention of cholecystitis or obstruction 03/08/2005 09/21/2014 Cholecystitis, unspecified 03/08/200509/21 Varicose veins of lower extremities with ulcer 0 03/08/2005 09/21/2014 documented as of this encounter (statuses as of 05/07/2022) [facility] History of Past illness Narrative* Problem Noted Date Resolved Date Carpal tunnel syndrome on left 07/06/2010 0 09/21/2014 Internal hemorrhoids without mention of complica tion 03/08/2005 09/21/2014 External hemorrhoids without mention of complica tion 03/08/2005 09/21/2014 Sprain of lumbosacral (joint) (ligament) 005 09/21/2014 Open wound of knee, leg (exc ept thigh), and ankle, without mention of complication 03/08/2005 09/21/2014 Chest pain, unspecified 03/08/2005 09/22/19 15 Esophageal reflux 03/08/2005 09/21/2014 Calculus of gallbladder with out mention of cholecystitis or obstruction 03/08/2005 09/21/2014 Cholecystitis, unspecified 03/08/200509/21 Varicose veins of lower extremities with ulcer 0 03/08/2005 09/21/2014 documented as of this encounter (statuses as of 05/16/2022) [facility] History of Past illness Narrative* Problem Noted Date Resolved Date Carpal tunnel syndrome on left 07/06/2010 0 09/21/2014 Internal hemorrhoids without mention of complica tion 03/08/2005 09/21/2014 External hemorrhoids without mention of complica tion 03/08/2005 09/21/2014 Sprain of lumbosacral (joint) (ligament) 005 09/21/2014 Open wound of knee, leg (exc ept thigh), and ankle, without mention of complication 03/08/2005 09/21/2014 Chest pain, unspecified 03/08/2005 09/22/19 15 Esophageal reflux 03/08/2005 09/21/2014 Calculus of gallbladder with out mention of cholecystitis or obstruction 03/08/2005 09/21/2014 Cholecystitis, unspecified 03/08/200509/21 Varicose veins of lower extremities with ulcer 0 03/08/2005 09/21/2014 documented as of this encounter (statuses as of 07/20/2022) [facility] History of Past illness Narrative* Problem Noted Date Resolved Date Carpal tunnel syndrome on left 07/06/2010 0 09/21/2014 Internal hemorrhoids without mention of complica tion 03/08/2005 09/21/2014 External hemorrhoids without mention of complica tion 03/08/2005 09/21/2014 Sprain of lumbosacral (joint) (ligament) 005 09/21/2014 Open wound of knee, leg (exc ept thigh), and ankle, without mention of complication 03/08/2005 09/21/2014 Chest pain, unspecified 03/08/2005 09/22/19 15 Esophageal reflux 03/08/2005 09/21/2014 Calculus of gallbladder with out mention of cholecystitis or obstruction 03/08/2005 09/21/2014 Cholecystitis, unspecified 03/08/200509/21 Varicose veins of lower extremities with ulcer 0 03/08/2005 09/21/2014 documented as of this encounter (statuses as of 09/25/2022) [facility] History of Past illness Narrative* Problem Noted Date Diagnosed Date Resolved Date Carpal tunnel syndrome on left 07/06/2010 09/21/2014 Internal hemorrhoids without mention of complication 03/08/2005 09/21/2014 External hemorrhoids without mention of complication 03/08/2005 09/21/2014 Sprain of lumbosacral (joint) (ligament) 03/08/2005 09/21/2014 Open wound of knee, leg (exc ept thigh), and ankle, without mention of complication 03/08/2005 0 09/21/2014 Chest pain, unspecified 03/08/200509/12 Esophageal reflux 03/08/2005 09/21/2014 Calculus of gallbladder with out mention of cholecystitis or obstruction 03/08/2005 09/21/2014 Cholecystitis, unspecified 03/08/2005 0 09/21/2014 Varicose veins of lower extr emities with ulcer 03/08/2005 09/21/2014 documented as of this encounter (statuses as of 01/22/2023) [facility] History of Past illness Narrative* Problem Noted Date Diagnosed Date Resolved Date Carpal tunnel syndrome on left 07/06/2010 09/21/2014 Internal hemorrhoids without mention of complication 03/08/2005 09/21/2014 External hemorrhoids without mention of complication 03/08/2005 09/21/2014 Sprain of lumbosacral (joint) (ligament) 03/08/2005 09/21/2014 Open wound of knee, leg (exc ept thigh), and ankle, without mention of complication 03/08/2005 0 09/21/2014 Chest pain, unspecified 03/08/200509/12 Esophageal reflux 03/08/2005 09/21/2014 Calculus of gallbladder with out mention of cholecystitis or obstruction 03/08/2005 09/21/2014 Cholecystitis, unspecified 03/08/2005 0 09/21/2014 Varicose veins of lower extr emities with ulcer 03/08/2005 09/21/2014 documented as of this encounter (statuses as of 04/02/2023) [facility] History of Past illness Narrative* Problem Noted Date Diagnosed Date Resolved Date Carpal tunnel syndrome on left 07/06/2010 09/21/2014 Internal hemorrhoids without mention of complication 03/08/2005 09/21/2014 External hemorrhoids without mention of complication 03/08/2005 09/21/2014 Sprain of lumbosacral (joint) (ligament) 03/08/2005 09/21/2014 Open wound of knee, leg (exc ept thigh), and ankle, without mention of complication 03/08/2005 0 09/21/2014 Chest pain, unspecified 03/08/200509/12 Esophageal reflux 03/08/2005 09/21/2014 Calculus of gallbladder with out mention of cholecystitis or obstruction 03/08/2005 09/21/2014 Cholecystitis, unspecified 03/08/2005 0 09/21/2014 Varicose veins of lower extr emities with ulcer 03/08/2005 09/21/2014 documented as of this encounter (statuses as of 04/04/2023) [facility] History of Past illness Narrative* Problem Noted Date Diagnosed Date Resolved Date Carpal tunnel syndrome on left 07/06/2010 09/21/2014 Internal hemorrhoids without mention of complication 03/08/2005 09/21/2014 External hemorrhoids without mention of complication 03/08/2005 09/21/2014 Sprain of lumbosacral (joint) (ligament) 03/08/2005 09/21/2014 Open wound of knee, leg (exc ept thigh), and ankle, without mention of complication 03/08/2005 0 09/21/2014 Chest pain, unspecified 03/08/200509/12 Esophageal reflux 03/08/2005 09/21/2014 Calculus of gallbladder with out mention of cholecystitis or obstruction 03/08/2005 09/21/2014 Cholecystitis, unspecified 03/08/2005 0 09/21/2014 Varicose veins of lower extr emities with ulcer 03/08/2005 09/21/2014 documented as of this encounter (statuses as of 04/09/2023) [facility] History of Past illness Narrative* Problem Noted Date Diagnosed Date Resolved Date Carpal tunnel syndrome on left 07/06/2010 09/21/2014 Internal hemorrhoids without mention of complication 03/08/2005 09/21/2014 External hemorrhoids without mention of complication 03/08/2005 09/21/2014 Sprain of lumbosacral (joint) (ligament) 03/08/2005 09/21/2014 Open wound of knee, leg (exc ept thigh), and ankle, without mention of complication 03/08/2005 0 09/21/2014 Chest pain, unspecified 03/08/200509/12 Esophageal reflux 03/08/2005 09/21/2014 Calculus of gallbladder with out mention of cholecystitis or obstruction 03/08/2005 09/21/2014 Cholecystitis, unspecified 03/08/2005 0 09/21/2014 Varicose veins of lower extr emities with ulcer 03/08/2005 09/21/2014 documented as of this encounter (statuses as of 04/23/2023) [place] [id number] History of Past illness Narrative* Problem Noted Date Diagnosed Date Resolved Date Carpal tunnel syndrome on left 07/06/2010 09/21/2014 Internal hemorrhoids without mention of complication 03/08/2005 09/21/2014 External hemorrhoids without mention of complication 03/08/2005 09/21/2014 Sprain of lumbosacral (joint) (ligament) 03/08/2005 09/21/2014 Open wound of knee, leg (exc ept thigh), and ankle, without mention of complication 03/08/2005 0 09/21/2014 Chest pain, unspecified 03/08/200509/12 Esophageal reflux 03/08/2005 09/21/2014 Calculus of gallbladder with out mention of cholecystitis or obstruction 03/08/2005 09/21/2014 Cholecystitis, unspecified 03/08/2005 0 09/21/2014 Varicose veins of lower extr emities with ulcer 03/08/2005 09/21/2014 documented as of this encounter (statuses as of 04/30/2023) [facility] History of Past illness Narrative* Problem Noted Date Diagnosed Date Resolved Date Carpal tunnel syndrome on left 07/06/2010 09/21/2014 Internal hemorrhoids without mention of complication 03/08/2005 09/21/2014 External hemorrhoids without mention of complication 03/08/2005 09/21/2014 Sprain of lumbosacral (joint) (ligament) 03/08/2005 09/21/2014 Open wound of knee, leg (exc ept thigh), and ankle, without mention of complication 03/08/2005 0 09/21/2014 Chest pain, unspecified 03/08/200509/12 Esophageal reflux 03/08/2005 09/21/2014 Calculus of gallbladder with out mention of cholecystitis or obstruction 03/08/2005 09/21/2014 Cholecystitis, unspecified 03/08/2005 0 09/21/2014 Varicose veins of lower extr emities with ulcer 03/08/2005 09/21/2014 documented as of this encounter (statuses as of 05/01/2023) [facility] History of Past illness Narrative* Problem Noted Date Diagnosed Date Resolved Date Carpal tunnel syndrome on left 07/06/2010 09/21/2014 Internal hemorrhoids without mention of complication 03/08/2005 09/21/2014 External hemorrhoids without mention of complication 03/08/2005 09/21/2014 Sprain of lumbosacral (joint) (ligament) 03/08/2005 09/21/2014 Open wound of knee, leg (exc ept thigh), and ankle, without mention of complication 03/08/2005 0 09/21/2014 Chest pain, unspecified 03/08/200509/12 Esophageal reflux 03/08/2005 09/21/2014 Calculus of gallbladder with out mention of cholecystitis or obstruction 03/08/2005 09/21/2014 Cholecystitis, unspecified 03/08/2005 0 09/21/2014 Varicose veins of lower extr emities with ulcer 03/08/2005 09/21/2014 documented as of this encounter (statuses as of 05/02/2023) [facility] History of Past illness Narrative* Problem Noted Date Diagnosed Date Resolved Date Carpal tunnel syndrome on left 07/06/2010 09/21/2014 Internal hemorrhoids without mention of complication 03/08/2005 09/21/2014 External hemorrhoids without mention of complication 03/08/2005 09/21/2014 Sprain of lumbosacral (joint) (ligament) 03/08/2005 09/21/2014 Open wound of knee, leg (exc ept thigh), and ankle, without mention of complication 03/08/2005 0 09/21/2014 Chest pain, unspecified 03/08/200509/12 Esophageal reflux 03/08/2005 09/21/2014 Calculus of gallbladder with out mention of cholecystitis or obstruction 03/08/2005 09/21/2014 Cholecystitis, unspecified 03/08/2005 0 09/21/2014 Varicose veins of lower extr emities with ulcer 03/08/2005 09/21/2014 documented as of this encounter (statuses as of 05/08/2023) [facility] History of Past illness Narrative* Problem Noted Date Diagnosed Date Resolved Date Carpal tunnel syndrome on left 07/06/2010 09/21/2014 Internal hemorrhoids without mention of complication 03/08/2005 09/21/2014 External hemorrhoids without mention of complication 03/08/2005 09/21/2014 Sprain of lumbosacral (joint) (ligament) 03/08/2005 09/21/2014 Open wound of knee, leg (exc ept thigh), and ankle, without mention of complication 03/08/2005 0 09/21/2014 Chest pain, unspecified 03/08/200509/12 Esophageal reflux 03/08/2005 09/21/2014 Calculus of gallbladder with out mention of cholecystitis or obstruction 03/08/2005 09/21/2014 Cholecystitis, unspecified 03/08/2005 0 09/21/2014 Varicose veins of lower extr emities with ulcer 03/08/2005 09/21/2014 documented as of this encounter (statuses as of 05/18/2023) [facility] History of Past illness Narrative* Problem Noted Date Diagnosed Date Resolved Date Carpal tunnel syndrome on left 07/06/2010 09/21/2014 Internal hemorrhoids without mention of complication 03/08/2005 09/21/2014 External hemorrhoids without mention of complication 03/08/2005 09/21/2014 Sprain of lumbosacral (joint) (ligament) 03/08/2005 09/21/2014 Open wound of knee, leg (exc ept thigh), and ankle, without mention of complication 03/08/2005 0 09/21/2014 Chest pain, unspecified 03/08/200509/12 Esophageal reflux 03/08/2005 09/21/2014 Calculus of gallbladder with out mention of cholecystitis or obstruction 03/08/2005 09/21/2014 Cholecystitis, unspecified 03/08/2005 0 09/21/2014 Varicose veins of lower extr emities with ulcer 03/08/2005 09/21/2014 documented as of this encounter (statuses as of 05/19/2023) [place] [id number] History of Past illness Narrative* Problem Noted Date Diagnosed Date Resolved Date Carpal tunnel syndrome on left 07/06/2010 09/21/2014 Internal hemorrhoids without mention of complication 03/08/2005 09/21/2014 External hemorrhoids without mention of complication 03/08/2005 09/21/2014 Sprain of lumbosacral (joint) (ligament) 03/08/2005 09/21/2014 Open wound of knee, leg (exc ept thigh), and ankle, without mention of complication 03/08/2005 0 09/21/2014 Chest pain, unspecified 03/08/200509/12 Esophageal reflux 03/08/2005 09/21/2014 Calculus of gallbladder with out mention of cholecystitis or obstruction 03/08/2005 09/21/2014 Cholecystitis, unspecified 03/08/2005 0 09/21/2014 Varicose veins of lower extr emities with ulcer 03/08/2005 09/21/2014 documented as of this encounter (statuses as of 05/24/2023) [place] [id number] History of Past illness Narrative* Problem Noted Date Diagnosed Date Resolved Date Carpal tunnel syndrome on left 07/06/2010 09/21/2014 Internal hemorrhoids without mention of complication 03/08/2005 09/21/2014 External hemorrhoids without mention of complication 03/08/2005 09/21/2014 Sprain of lumbosacral (joint) (ligament) 03/08/2005 09/21/2014 Open wound of knee, leg (exc ept thigh), and ankle, without mention of complication 03/08/2005 0 09/21/2014 Chest pain, unspecified 03/08/200509/12 Esophageal reflux 03/08/2005 09/21/2014 Calculus of gallbladder with out mention of cholecystitis or obstruction 03/08/2005 09/21/2014 Cholecystitis, unspecified 03/08/2005 0 09/21/2014 Varicose veins of lower extr emities with ulcer 03/08/2005 09/21/2014 documented as of this encounter (statuses as of 05/31/2023) [facility] History of Past illness Narrative* Problem Noted Date Diagnosed Date Resolved Date Carpal tunnel syndrome on left 07/06/2010 09/21/2014 Internal hemorrhoids without mention of complication 03/08/2005 09/21/2014 External hemorrhoids without mention of complication 03/08/2005 09/21/2014 Sprain of lumbosacral (joint) (ligament) 03/08/2005 09/21/2014 Open wound of knee, leg (exc ept thigh), and ankle, without mention of complication 03/08/2005 0 09/21/2014 Chest pain, unspecified 03/08/200509/12 Esophageal reflux 03/08/2005 09/21/2014 Calculus of gallbladder with out mention of cholecystitis or obstruction 03/08/2005 09/21/2014 Cholecystitis, unspecified 03/08/2005 0 09/21/2014 Varicose veins of lower extr emities with ulcer 03/08/2005 09/21/2014 documented as of this encounter (statuses as of 06/13/2023) [facility] 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)- Primary Type 2 diabetes mellitus without complication, without long-term current use of insulin (HCC) Essential hypertension, benign Hyperlipidemia with target LDL less than 100 Other and unspecified hyperlipidemia Hyperlipidemia, mixed Mixed hyperlipidemia Morbid obesity with BMI of 40.0-44.9, adult (HCC) Morbid obesity Venous (peripheral) insufficiency Unspecified venous (peripheral) insufficiency Venous stasis dermatitis of both lower extremities Uncontrolled type 2 diabetes mellitus with hyperglycemia (HCC) Palpitations Prostate disorder Unspecified disorder of prostate Cellulitis of skin Cellulitis and abscess of unspecified site [facility] Obesity, Class III, BMI 40-49.9 (morbid obesity) (HCC)- Primary Morbid obesity Type 2 diabetes mellitus without complication, without long-term current use of insulin (HCC) Dietary counseling Dietary surveillance and counseling [facility] Suspected COVID-19 virus infection- Primary Upper respiratory symptom Other symptoms involving respiratory system and chest Body aches Generalized pain Rash Rash and other nonspecific skin eruption [facility] Diagnosis Medicare annual wellness visit, subsequent- Primary Routine general medical examination at a health care facility Advance directive discussed with patient Other specified counseling Type 2 diabetes mellitus without complication, without long-term current use of insulin (HCC) 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) Essential hypertension, benign Hyperlipidemia, mixed Mixed hyperlipidemia Venous (peripheral) insufficiency Unspecified venous (peripheral) insufficiency Venous stasis dermatitis of both lower extremities Benign prostatic hyperplasia with urinary frequency Palpitations Rosacea 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 of organic origin Morbid obesity with BMI of 40.0-44.9, adult (HCC) Morbid obesity Foot pain, left Pain in limb Viral warts, unspecified type [facility] Diagnosis Uncontrolled type 2 diabetes mellitus with hyperglycemia (HCC) Type 2 diabetes mellitus without complication, without long-term current use of insulin (HCC) Essential hypertension, benign Hyperlipidemia with target LDL less than 100 Other and unspecified hyperlipidemia [facility] Diagnosis Uncontrolled type 2 diabetes mellitus with hyperglycemia (HCC) [facility] Diagnosis Type 2 diabetes mellitus without complication, without long-term current use of insulin (HCC) [facility] Diagnosis Type 2 diabetes mellitus without complication, without long-term current use of insulin (HCC)- Primary Uncontrolled type 2 diabetes mellitus with hyperglycemia (HCC) Hyperlipidemia with target LDL less than 100 Other and unspecified hyperlipidemia Essential hypertension, benign 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) Hyperlipidemia, mixed Mixed hyperlipidemia Diabetic eye exam (HCC) Type II or unspecified type diabetes mellitus without mention of complication, not stated as uncontrolled Morbid obesity with BMI of 40.0-44.9, adult (HCC) Morbid obesity Prostate disorder Unspecified disorder of prostate Encounter for immunization Need for other specified prophylactic vaccination against single bacterial disease [facility] Diagnosis Medicare annual wellness visit, subsequent- Primary Routine general medical examination at a health care facility Type 2 diabetes mellitus without complication, without long-term current use of insulin (HCC) Diabetic eye exam (HCC) Type II or unspecified type diabetes mellitus without mention of complication, not stated as uncontrolled 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) Hyperlipidemia, mixed Mixed hyperlipidemia Essential hypertension, benign Morbid obesity with BMI of 40.0-44.9, adult (HCC) Morbid obesity Palpitations Venous stasis dermatitis of both lower extremities Venous (peripheral) insufficiency Unspecified venous (peripheral) insufficiency Benign prostatic hyperplasia with urinary frequency 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 of organic origin Family history of pancreatic cancer Family history of malignant neoplasm of gastrointestinal tract History of colonic polyps Personal history of colonic polyps Screening for colon cancer Special screening for malignant neoplasms, colon Eversion deformity of left foot Left leg pain Pain in limb Foot callus Corns and callosities Neoplasm of uncertain behavior of skin of nose Neoplasm of uncertain behavior of skin Viral illness Unspecified viral infection, in conditions classified elsewhere and of unspecified site Suspected COVID-19 virus infection [facility] Diagnosis Family history of pancreatic cancer- Primary Family history of malignant neoplasm of gastrointestinal tract Type 2 diabetes mellitus without complication, without long-term current use of insulin (HCC) documented in this encounter [facility] note* Diagnosis Uncontrolled type 2 diabetes mellitus with hyperglycemia (HCC) Essential hypertension, benign Hyperlipidemia with target LDL less than 100 Other and unspecified hyperlipidemia documented in this encounter [facility] note* Diagnosis Essential hypertension, benign documented in this encounter [facility] note* Diagnosis Family history of pancreatic cancer Family history of malignant neoplasm of gastrointestinal tract documented in this encounter [facility] for referral (narrative)* Diagnostic Procedure Only (Routine) - Closed Specialty Diagnoses / Procedures Referred By Contac t Referred To Contact XR IMAGING Diagnoses Foot pain, left Procedures XR FOOT GENERAL 3V AP/LAT/OBL LEFT RADEX FOOT COMPLETE MINIMUM 3 VIEWS Ean Sow MD [address] [place] [address] Xr Imaging Referral ID Status Reason Start Date Expiration Date V isits Requested Visits Authorized [id number] Closed Auto-Generate d Referral 03/28/2022 04/27/2023 1 1 [facility] for referral (narrative)* Diagnostic Procedure Only (Routine) - Authorized Specialty Diagnoses / Procedures Referred By Contac t Referred To Contact US IMAGING Diagnoses Family history of pancreatic cancer Procedures US ABD RIGHT UPPER QUADRANT US ABDOMINAL REAL TIME W/IMAGE LIMITED Ean Sow MD [address] [place] [address] [place] [id number] Referral ID Status Reason Start Date Expiration Date Visits Requested Visits Authorized [id number] Authorized Auto-Generat ed Referral 04/02/2023 05/01/2024 1 1 * Transition of Care (Routine) - Ref Not Required Specialty Diagnoses / Procedures Referred By Contac t Referred To Contact Dermatology Diagnoses Neoplasm of uncertain behavior of skin of nose Procedures CONSULT TO DERMATOLOGY Ean Sow MD [address] [place] [id number] Referral ID Status Reason Start Date Expiration Date Visits Requested Visits Authorized [id number] Ref Not Required PCP Requested Referral 04/02/2023 04/01/2024 1 1 * Consult, Test, Treat (Routine) - Authorized Specialty Diagnoses / Procedures Referred By Contac t Referred To Contact General Surgery Diagnoses History of colonic polyps Screening for colon cancer Procedures CONSULT TO GENERAL SURGERY OFFICE/OUTPATIENT [facility] 60-74 MINUTES Ean Sow MD [address] [place] [id number] Referral ID Status Reason Start Date Expiration Date Visits Requested Visits Authorized [id number] Authorized PCP Requested Referral 04/02/2023 04/01/2024 1 1 [facility] Reason for Referral Specialty Diagnoses / Procedures Referred By Contac t Referred To Contact Nutrition Diagnoses Type 2 diabetes mellitus without complication, without long-term current use of insulin (HCC) Procedures CONSULT TO NUTRITION THERAPY OFFICE/OUTPATIENT [facility] 60-74 MINUTES Ean Sow MD [address] [place] [id number] Referral ID Status Reason Start Date Expiration Date Visits Requested Visits Authorized [id number] Authorized PCP Requested Referral 11/29/2021 11/29/2022 1 1 Specialty Diagnoses / Procedures Referred By Elijah t Referred To Contact CT IMAGING Diagnoses Family history of pancreatic cancer Procedures CT PANCREAS W IVCON CT ABDOMEN W/CONTRAST Ean Sow MD [address] [facility] [place] [place] [address] [place] [address] Referral ID Status Reason Start Date Expiration Date Visits Requested Visits Authorized [id number] Authorized Auto-Generat ed Referral 04/08/2023 05/07/2024 1 1 Referral ID Status Reason Start Date Expiration Date V isits Requested Visits Authorized [id number] Closed Auto-Generate d Referral 04/08/2023 05/07/2024 1 1 Health Concerns Infection Onset Date Last Indicated Resolved Time COVID-19 Rule-Out 02/26/2022 02/26/2022 Summary Purpose Family History No Family History Records Found Advance Directives No Advanced Directives Records Found Additional Source Comments Source Comments (unrecognize d section and content) In the event this informatio n is protected by the Federal Confidentiality of Alcohol and Drug Abuse Patient Records regulations: The Federal rules restrict any use of the information to criminally investigate or prosecute any alcohol or drug abuse patient.[facility] event this information is protected by the Federal Confidentiality of Alcohol and Drug Abuse Patient Records regulations: The Federal rules restrict any use of the information to criminally investigate or prosecute any alcohol or drug abuse patient.[facility] the event this information is protected by the Federal Confidentiality of Alcohol and Drug Abuse Patient Records regulations: The Federal rules restrict any use of the information to criminally investigate or prosecute any alcohol or drug abuse patient.[facility] the event this information is protected by the Federal Confidentiality of Alcohol and Drug Abuse Patient Records regulations: The Federal rules restrict any use of the information to criminally investigate or prosecute any alcohol or drug abuse patient.[facility] the event this information is protected by the Federal Confidentiality of Alcohol and Drug Abuse Patient Records regulations: The Federal rules restrict any use of the information to criminally investigate or prosecute any alcohol or drug abuse patient.[facility] the event this information is protected by the Federal Confidentiality of Alcohol and Drug Abuse Patient Records regulations: The Federal rules restrict any use of the information to criminally investigate or prosecute any alcohol or drug abuse patient.[facility] the event this information is protected by the Federal Confidentiality of Alcohol and Drug Abuse Patient Records regulations: The Federal rules restrict any use of the information to criminally investigate or prosecute any alcohol or drug abuse patient.[facility] the event this information is protected by the Federal Confidentiality of Alcohol and Drug Abuse Patient Records regulations: The Federal rules restrict any use of the information to criminally investigate or prosecute any alcohol or drug abuse patient.[facility] the event this information is protected by the Federal Confidentiality of Alcohol and Drug Abuse Patient Records regulations: The Federal rules restrict any use of the information to criminally investigate or prosecute any alcohol or drug abuse patient.[facility] the event this information is protected by the Federal Confidentiality of Alcohol and Drug Abuse Patient Records regulations: The Federal rules restrict any use of the information to criminally investigate or prosecute any alcohol or drug abuse patient.[facility] the event this information is protected by the Federal Confidentiality of Alcohol and Drug Abuse Patient Records regulations: The Federal rules restrict any use of the information to criminally investigate or prosecute any alcohol or drug abuse patient.[facility] the event this information is protected by the Federal Confidentiality of Alcohol and Drug Abuse Patient Records regulations: The Federal rules restrict any use of the information to criminally investigate or prosecute any alcohol or drug abuse patient.[facility] the event this information is protected by the Federal Confidentiality of Alcohol and Drug Abuse Patient Records regulations: The Federal rules restrict any use of the information to criminally investigate or prosecute any alcohol or drug abuse patient.[facility] the event this information is protected by the Federal Confidentiality of Alcohol and Drug Abuse Patient Records regulations: The Federal rules restrict any use of the information to criminally investigate or prosecute any alcohol or drug abuse patient.[facility] the event this information is protected by the Federal Confidentiality of Alcohol and Drug Abuse Patient Records regulations: The Federal rules restrict any use of the information to criminally investigate or prosecute any alcohol or drug abuse patient.[facility] the event this information is protected by the Federal Confidentiality of Alcohol and Drug Abuse Patient Records regulations: The Federal rules restrict any use of the information to criminally investigate or prosecute any alcohol or drug abuse patient.[facility] the event this information is protected by the Federal Confidentiality of Alcohol and Drug Abuse Patient Records regulations: The Federal rules restrict any use of the information to criminally investigate or prosecute any alcohol or drug abuse patient.[facility] the event this information is protected by the Federal Confidentiality of Alcohol and Drug Abuse Patient Records regulations: The Federal rules restrict any use of the information to criminally investigate or prosecute any alcohol or drug abuse patient.[facility] the event this information is protected by the Federal Confidentiality of Alcohol and Drug Abuse Patient Records regulations: The Federal rules restrict any use of the information to criminally investigate or prosecute any alcohol or drug abuse patient.[facility] the event this information is protected by the Federal Confidentiality of Alcohol and Drug Abuse Patient Records regulations: The Federal rules restrict any use of the information to criminally investigate or prosecute any alcohol or drug abuse patient.[facility] the event this information is protected by the Federal Confidentiality of Alcohol and Drug Abuse Patient Records regulations: The Federal rules restrict any use of the information to criminally investigate or prosecute any alcohol or drug abuse patient.[facility] the event this information is protected by the Federal Confidentiality of Alcohol and Drug Abuse Patient Records regulations: The Federal rules restrict any use of the information to criminally investigate or prosecute any alcohol or drug abuse patient.[facility] the event this information is protected by the Federal Confidentiality of Alcohol and Drug Abuse Patient Records regulations: The Federal rules restrict any use of the information to criminally investigate or prosecute any alcohol or drug abuse patient.[facility] the event this information is protected by the Federal Confidentiality of Alcohol and Drug Abuse Patient Records regulations: The Federal rules restrict any use of the information to criminally investigate or prosecute any alcohol or drug abuse patient.[facility] the event this information is protected by the Federal Confidentiality of Alcohol and Drug Abuse Patient Records regulations: The Federal rules restrict any use of the information to criminally investigate or prosecute any alcohol or drug abuse patient.[facility] the event this information is protected by the Federal Confidentiality of Alcohol and Drug Abuse Patient Records regulations: The Federal rules restrict any use of the information to criminally investigate or prosecute any alcohol or drug abuse patient.[facility] the event this information is protected by the Federal Confidentiality of Alcohol and Drug Abuse Patient Records regulations: The Federal rules restrict any use of the information to criminally investigate or prosecute any alcohol or drug abuse patient.[facility] the event this information is protected by the Federal Confidentiality of Alcohol and Drug Abuse Patient Records regulations: The Federal rules restrict any use of the information to criminally investigate or prosecute any alcohol or drug abuse patient.[facility] the event this information is protected by the Federal Confidentiality of Alcohol and Drug Abuse Patient Records regulations: The Federal rules restrict any use of the information to criminally investigate or prosecute any alcohol or drug abuse patient.[facility] the event this information is protected by the Federal Confidentiality of Alcohol and Drug Abuse Patient Records regulations: The Federal rules restrict any use of the information to criminally investigate or prosecute any alcohol or drug abuse patient.[facility] Reason for Visit (unrecogniz ed section and content) Reason Comments Patient Education Assessment Specialty Diagnoses / Procedures Referred By Contac t Referred To Contact Nutrition Diagnoses Type 2 diabetes mellitus without complication, without long-term current use of insulin (HCC) Procedures CONSULT TO NUTRITION THERAPY OFFICE/OUTPATIENT [facility] 60-74 MINUTES Ean Sow MD [address] [place] [address] Referral ID Status Reason Start Date Expiration Date V isits Requested Visits Authorized [id number] Closed PCP Requested Referral 11/29/2021 11/29/2022 1 1 Reason Comments Rash Body aches, congesti on, fatigue, sinus drainage x5 days Reason Onset Date Comments Refill Request 03/27/2022 Reason Comments Results Reason Comments Medicare Wellness Exam Reason Comments Medication Problem Reason Comments Insurance Authorization Reason Onset Date Comments Refill Request 04/02/2022 Reason Onset Date Comments Refill Request 04/23/2022 Reason Onset Date Comments Refill Request 04/26/2022 Reason Comments Medication Question Reason Comments Patient Update Reason Comments Follow Up 6 month Reason Comments Consult Reason Comments Medicare Wellness Exam Reason Comments Patient Request Reason Comments Results Reason Onset Date Comments Refill Request 04/29/2023 Reason Comments Opened In Error Reason Onset Date Comments Refill Request 05/07/2023 Reason Comments Medication Problem Cost is too high Reason Comments Radiology CT Specialty Diagnoses / Procedures Referred By Contac t Referred To Contact CT IMAGING Diagnoses Family history of pancreatic cancer Procedures CT PANCREAS W IVCON CT ABDOMEN W/CONTRAST Ean Sow MD [address] [place] [address] [place] [address] Referral ID Status Reason Start Date Expiration Date V isits Requested Visits Authorized [id number] Closed Auto-Generate d Referral 04/08/2023 05/07/2024 1 1 Care Teams (unrecognized sec tion and content) Physician Assistant Primary Care Relationship Specialty Start Date End Date Ean Sow MD [facility] [place] [address] PCP - General Family Practice 03/11/21 Physician Assistant Primary Care Relationship Specialty Start Date End Date Ean Sow MD [address] [place] [address] [place] [address] PCP - General Family Practice 03/11/21 Physician Assistant Primary Care Relationship Specialty Start Date End Date Ean Sow MD [address] [place] [address] [place] [address] PCP - General Family Practice 03/11/21 Physician Assistant Primary Care Relationship Specialty Start Date End Date Ean Sow MD [address] [place] [address] [place] [address] PCP - General Family Practice 03/11/21 Physician Assistant Primary Care Relationship Specialty Start Date End Date Ean Sow MD [address] [place] [address] [place] [address] PCP - General Family Practice 03/11/21 Physician Assistant Primary Care Relationship Specialty Start Date End Date Ean Sow MD [address] [place] [address] [place] [address] PCP - General Family Medicine 03/11/21 Physician Assistant Primary Care Relationship Specialty Start Date End Date Ean Sow MD [address] [place] [address] [place] [address] PCP - General Family Medicine 03/11/21 Physician Assistant Primary Care Relationship Specialty Start Date End Date Ean Sow MD [address] [place] [address] [place] [address] PCP - General Family Medicine 03/11/21 Physician Assistant Primary Care Relationship Specialty Start Date End Date Ean Sow MD [address] [facility] [place] [address] PCP - General Family Medicine 03/11/21 Physician Assistant Primary Care Relationship Specialty Start Date End Date Ean Sow MD [address] [place] [address] PCP - General Family Medicine 03/11/21 Physician Assistant Primary Care Relationship Specialty Start Date End Date Ean Sow MD [address] [place] [address] PCP - General Family Medicine 03/11/21 Physician Assistant Primary Care Relationship Specialty Start Date End Date Ean Sow MD [address] [place] [address] PCP - General Family Medicine 03/11/21 Physician Assistant Primary Care Relationship Specialty Start Date End Date Ean Sow MD [address] [place] [address] PCP - General Family Medicine 03/11/21 Physician Assistant Primary Care Relationship Specialty Start Date End Date Ean Sow MD [address] [place] [address] PCP - General Family Medicine 03/11/21 Physician Assistant Primary Care Relationship Specialty Start Date End Date Ean Sow MD [address] [place] [address] PCP - General Family Medicine 03/11/21 Physician Assistant Primary Care Relationship Specialty Start Date End Date Ean Sow MD [address] [place] [address] PCP - General Family Medicine 03/11/21 Physician Assistant Primary Care Relationship Specialty Start Date End Date Ean Sow MD [address] [place] [address] PCP - General Family Medicine 03/11/21 Physician Assistant Primary Care Relationship Specialty Start Date End Date Ean Sow MD [address] [place] [address] PCP - General Family Medicine 03/11/21 Physician Assistant Primary Care Relationship Specialty Start Date End Date Ean Sow MD [address] [place] [address] PCP - General Family Medicine 03/11/21 Physician Assistant Primary Care Relationship Specialty Start Date End Date Ean Sow MD [address] [place] [address] PCP - General Family Medicine 03/11/21 Physician Assistant Primary Care Relationship Specialty Start Date End Date Ean Sow MD [address] [place] [address] PCP - General Family Medicine 03/11/21 Physician Assistant Primary Care Relationship Specialty Start Date End Date Ean Sow MD [address] [place] [address] PCP - General Family Medicine 03/11/21 Physician Assistant Primary Care Relationship Specialty Start Date End Date Ean Sow MD [address] [place] [address] PCP - General Family Medicine 03/11/21 Physician Assistant Primary Care Relationship Specialty Start Date End Date Ean Sow MD [address] [place] [address] PCP - General Family Medicine 03/11/21 Physician Assistant Primary Care Relationship Specialty Start Date End Date Ean Sow MD [address] [place] [address] PCP - General Family Medicine 03/11/21 (unrecognized sect ion and content) No Status Records Found INFORMATION SOURCE (unrecogn ized section and content) FOR RECORDS PERTAINING TO PATIENTS WHO ARE OR HAVE BEEN ENROLLED IN A CHEMICAL DEPENDENCY/SUBSTANCEABUSE PROGRAM, SOME INFORMATION MAY BE OMITTED. This clinical summary was aggregated from multiple sources. Caution should be exercised in using it in the provision of clinical care. This summary normalizes information from multiple sources, and as a consequence, information in this document may materially change the coding, format and clinical context of patient data. In addition, data may be omitted in some cases. CLINICAL DECISIONS SHOULD BE BASED ON THE PRIMARY CLINICAL RECORDS. [employer] provides no warranty or guarantee of the accuracy or completeness of information in this document.
--- NOTE | 2023-07-11 07:37 | HP.PCM_ITS ---
HPI - General General Date of Admission: 03/29/20 Date of Service: 07/11/23 Chief Complaint: Personal history of colon polyps HPI Narrative MARY HOLDEN, is a 67 M who presents via open access today for surveillance colonoscopy. Previous colonoscopy was May 2018. He notes some rectal bleeding hemorrhoid pain subsequent to the bowel prep for prior to that nothing. He has no bright red blood per rectum or melena. [facility] Medical History (Updated 07/05/23 @ 15:26 by Shagufta Adair) Diabetes Dietary restriction Former smoker Heartburn Hemorrhoids High cholesterol History of stress test HTN (hypertension) Seasonal allergies Wears glasses Home Medications amlodipine 10 mg tablet 10 mg PO DAILY 04/23/13 [History Last Taken 07/02/19 06:00 10 MG] hydrochlorothiazide 25 mg tablet 25 mg PO DAILY 04/23/13 [History Last Taken Unknown] losartan 50 mg tablet 100 mg PO DAILY 04/23/13 [History Last Taken 07/02/19 06:00 100 MG] omega-3 fatty acids 300 mg capsule 300 mg PO DAILY 04/23/13 [History Last Taken 06/08/18] aspirin 81 mg tablet,delayed release 81 mg PO DAILY@0800 11/09/14 [History Last Taken 06/08/18] multivitamin with folic acid 400 mcg tablet 1 tab PO DAILY 11/09/14 [History Last Taken Unknown] atorvastatin 10 mg tablet (Lipitor) 20 mg PO DAILY 08/11/18 [History Last Taken Unknown] metformin 500 mg tablet,extended release 24 hr 1,000 mg PO BID 06/29/19 [History Last Taken Unknown] glimepiride 4 mg tablet 4 mg PO BID 07/05/23 [History Last Taken Unknown] Allergy/AdvReac Type Severity Reaction Status Date / Time dapagliflozin [From [facility]] Allergy Intermediate Chest Verified 07/11/23 07:46 tightness lisinopril AdvReac Other Verified 07/11/23 07:46 Family History Father Cancer Mother Diabetes Surgical History (Updated 07/05/23 @ 15:15 by Shagufta Adair) H/O hernia repair History of carpal tunnel release of both wrists History of cholecystectomy History of colonoscopy History of vein stripping Social History (Updated 07/22/19 @ 16:[address] Kishore De Anda MD) Smoking Status: Former smoker alcohol intake: never ROS Constitutional Constitutional: Reports systems reviewed and no addt'l complaints, except as documented Cardiovascular Cardiovascular: Denies chest pain Respiratory/Chest Respiratory/Chest: Denies shortness of breath at rest Gastrointestinal Gastrointestinal: Denies abdominal pain, change in bowel habits, hematochezia or melena Physical Exam Const alert, oriented x3 and no apparent distress General Appearance: cooperative and comfortable Eyes General Eye: normal appearance of both eyes Neck General: normal visual inspection Chest inspection of chest normal Resp Effort and Inspection: able to speak in complete sentences and symmetric chest movement Auscultation: clear to auscultation bilaterally Cardio regular rate and regular rhythm GI soft to palpation, non-tender and non-distended Extremity no calf tenderness Neuro oriented x3 Psych thought process normal Assessment & Plan Assessment/Plan (1) Personal history of colonic polyps: PLAN: The patient presents today for surveillance colonoscopy as he has a personal history of colon polyps. He is aware of the technique, benefit, risk, alternatives. He had an opportunity to ask and have questions answered. We will proceed as noted. Kishore De Anda M.D., F.A.C.S.
[2023-07-11 07:55] VITALS: BP 139/75; PULSE 58; RESP 16; TEMP 36.6; O2SAT 98; BMI 42.7
[2023-07-11] MEDS: Lactated Ringers 1,000 ML 15 ML IV (07:59)
--- NOTE | 2023-07-11 08:30 | COLBX_PTH ---
PATHOLOGY RESULTS PATIENT: MARY HOLDEN LOC: EN U#:[id number] AGE/SX: 67/M ROOM: RE07/11/[address]: Dr. Kishore De Anda MD : 1955 BED: DIS: 07/11/2023 SPEC #: [id number] RECD: 07/11/23 11:01 STATUS: MIKEL ANDERSEN #: [id number] CLAY: 07/11/23 08:[address]: Kishore De Anda DEPT: SURGICAL PATHOLOGY RECD BY: Tita Maher ENTERED: 07/11/23 11:01 SP TYPE: COLON BX OTHR DR: Dr. Rick Henderson MD Tissues: Rectum, NOS Procedures: Surgery Specimen Level IV HEADER OPERATION: Colonoscopy - open access with biopsy PRE-OP DIAGNOSIS: History of colonic polyps TISSUE SUBMITTED: Rectum polyp biopsy MICROSCOPIC DIAGNOSIS Rectal polyp, biopsy: Tubular adenoma (one fragment). Hyperplastic polyp (one fragment). AM:nirmala 07/12/2023 MICROSCOPIC DESCRIPTION Slides are reviewed. GROSS DESCRIPTION Received in fixative is one container labeled with the patient's name and designated rectum polyp biopsy. The specimen consists of two irregular fragments of light rosado soft tissue that in aggregate measure 0.6 x 0.3 x 0.1 cm. The specimen is totally submitted in one cassette. / SJ:nirmala 07/11/2023 TC:5 [facility]: [id number]
[2023-07-11 08:39] LABS: Bedside Glucose 174 mg/dL (74-106)
[2023-07-11 08:51] VITALS: BP 114/65; BP 139/75; PULSE 67; RESP 18; TEMP 36.9; O2SAT 89
--- NOTE | 2023-07-11 08:54 | OP.COLON_ITS ---
Patient Name: Jaswant Aguiar Procedure Date: 07/11/2023 8:14 AM Date of : 1955 Age: 67 Procedure: Colonoscopy Indications: High risk colon cancer surveillance: Personal history of colonic polyps Providers: Kishore De Anda MD Referring MD: Kishore De Anda MD Medicines: See the Anesthesia note for documentation of the administered medications Patient Profile: Last Colonoscopy: May 2018. Complications: No immediate complications. Procedure: Pre-Anesthesia Assessment: - Prior to the procedure, a History and Physical was performed, and patient medications and allergies were reviewed. The patient's tolerance of previous anesthesia was also reviewed. The risks and benefits of the procedure and the sedation options and risks were discussed with the patient. All questions were answered, and informed consent was obtained. Prior Anticoagulants: The patient has taken no anticoagulant or antiplatelet agents. ASA Grade Assessment: III - A patient with severe systemic disease. After reviewing the risks and benefits, the patient was deemed in satisfactory condition to undergo the procedure. After I obtained informed consent, the scope was passed under direct vision. Throughout the procedure, the patient's blood pressure, pulse, and oxygen saturations were monitored continuously. The adult colonoscope was introduced through the anus and advanced to the terminal ileum, with identification of the appendiceal orifice and IC valve. The colonoscopy was performed without difficulty. The patient tolerated the procedure well. The quality of the bowel preparation was fair. The ileocecal valve and the appendiceal orifice were photographed. Scope In: 8:25:47 AM Scope Withdrawal Time 0 hours 12 minutes 36 seconds Scope Out: 8:45:46 AM Total Procedure Duration Time 0 hours 19 minutes 59 seconds Findings: The digital rectal exam findings include non-thrombosed external hemorrhoids, non-thrombosed internal hemorrhoids and internal hemorrhoids that prolapse with straining, but require manual replacement into the anal canal (Grade III). Pertinent negatives include normal prostate (size, shape, and consistency). A 6 mm polyp was found in the rectum. The polyp was sessile. The polyp was removed with a cold biopsy forceps. Resection and retrieval were complete. Scattered diverticula were found in the sigmoid colon. Impression: - Preparation of the colon was fair. - Non-thrombosed external hemorrhoids, non-thrombosed internal hemorrhoids and internal hemorrhoids that prolapse with straining, but require manual replacement into the anal canal (Grade III) found on digital rectal exam. - One 6 mm polyp in the rectum, removed with a cold biopsy forceps. Resected and retrieved. - Diverticulosis in the sigmoid colon. Recommendation: - Discharge patient to home. - Resume previous diet. - Continue present medications. - Repeat colonoscopy in 5 years for surveillance based on pathology results. - Telephone my office for pathology results in 1 week. Procedure Code(s): --- Professional --- 05442, Colonoscopy, flexible; with biopsy, single or multiple Diagnosis Code(s): --- Professional --- Z86.010, Personal history of colonic polyps K64.2, Third degree hemorrhoids K64.4, Residual hemorrhoidal skin tags D12.8, Benign neoplasm of rectum K57.30, Diverticulosis of large intestine without perforation or abscess without bleeding CPT copyright 2021 [employer]. All rights reserved. The codes documented in this report are preliminary and upon it risk and assurance senior manager review may be revised to meet current compliance requirements. Kishore De Anda MD 07/11/2023 8:54:13 AM This report has been signed electronically. Number of Addenda: 0 Note Initiated On: 07/11/2023 8:14 AM
--- NOTE | 2023-07-11 08:54 | OP.CCLET_ITS ---
07/11/2023 Rick Henderson MD Re : Colonoscopy procedure for Jaswant Aguiar Dear Dr. Henderson This procedure was performed on June. My impressions and recommendations are as follows: Impressions : - Preparation of the colon was fair. - Non-thrombosed external hemorrhoids, non-thrombosed internal hemorrhoids and internal hemorrhoids that prolapse with straining, but require manual replacement into the anal canal (Grade III) found on digital rectal exam. - One 6 mm polyp in the rectum, removed with a cold biopsy forceps. Resected and retrieved. - Diverticulosis in the sigmoid colon. Recommendations : - Discharge patient to home. - Resume previous diet. - Continue present medications. - Repeat colonoscopy in 5 years for surveillance based on pathology results. - Telephone my office for pathology results in 1 week. My findings are described in the full procedure note, which is enclosed. If I can be of further assistance, please feel free to contact me at Doctor phone number(s): Work: . Sincerely, Kishore De Anda MD 07/11/2023 8:54:13 AM This report has been signed electronically.
[2023-07-11 08:55] VITALS: BP 114/60; BP 139/75; PULSE 67; RESP 18; O2SAT 92
[2023-07-11 09:00] VITALS: BP 122/62; BP 139/75; PULSE 77; RESP 18; O2SAT 95
[2023-07-11 09:06] VITALS: BP 114/74; BP 139/75; PULSE 61; RESP 18; TEMP 36.6; O2SAT 95
[2023-07-11 09:38] VITALS: BP 139/75
== END 2023-07-11 09:53 | disposition home or self-care (01) ==
LOC: EN 07:26 → AC 07:28
PROVIDERS: PCP Family Medicine; Referring Provider Family Medicine; Visit Provider Surgery
PROC: 0DJD8ZZ Inspection of Lower Intestinal Tract, Via Natural or Artificial Opening Endoscopic (ICD-10-PCS; CPT 45378; principal; 2023-07-11 08:25)
DX: Z12.11 Encounter for screening for malignant neoplasm of colon (principal); E11.9 Type 2 diabetes mellitus without complications; Z86.010 Personal history of colon polyps; K64.4 Residual hemorrhoidal skin tags; I10 Essential (primary) hypertension; Z87.891 Personal history of nicotine dependence; K57.30 Diverticulosis of large intestine without perforation or abscess without bleeding; Z79.84 Long term (current) use of oral hypoglycemic drugs; E78.00 Pure hypercholesterolemia, unspecified; K64.2 Third degree hemorrhoids; D12.8 Benign neoplasm of rectum; Z79.899 Other long term (current) drug therapy; Z79.82 Long term (current) use of aspirin; Z90.49 Acquired absence of other specified parts of digestive tract; Z87.19 Personal history of other diseases of the digestive system
CPT/HCPCS: 45380; 82962; 88305; J7120; J2405

== ENCOUNTER 2024-08-15 21:24 | Inpatient (IN) | payer MEDICARE, OTHER, SELFPAY ==
[2024-08-15] VITALS (7 sets, daily range): BP systolic 127–167; BP diastolic 64–73; PULSE 95–107; RESP 18–26; TEMP 37.8–37.9; O2SAT 88–95; BMI 44.2
--- NOTE | 2024-08-15 21:38 | EKG12_ITS ---
Test Reason : Blood Pressure : */* mmHG Vent. Rate : 100 BPM Atrial Rate : 100 BPM P-R Int : 144 ms QRS Dur : 94 ms QT Int : 338 ms P-R-T Axes : 60 5 18 degrees QTcB Int : 436 ms Normal sinus rhythm Normal ECG Confirmed by KAREN ROJAS, PRASHANT ([id number]), department editor SEB SORIANO ([id number]) on 08/17/2024 8:19:59 AM Referred By: Confirmed By: PRASHANT JONES MD
[2024-08-15 21:50] LABS: Absolute Lymphocyte Count 0.52 X10^3/uL (0.83-4.51); Absolute Neutrophil Count 5.5 X10^3/uL (2.0-7.7); Basophil# 0.04 X10^3/uL; Basophil% 0.6 % (0-1); Eosinophil# 0.04 X10^3/uL; Eosinophils% 0.6 % (0-5); Hematocrit 44.8 % (40-54); Hemoglobin 14.8 g/dL (13.0-16.5); Lymphocyte # 0.52 X10^3/ul (0.83-4.51); Lymphocyte % 7.6 % (19-41); Mean Corpuscular Volume 87.7 fL (80-94); Mean Platelet Vol. 10.1 fl (6.2-12.0); Monocyte# 0.71 X10^3/uL; Monocyte% 10.4 % (0-10); NRBC Flagged by Analyzer 0 % (0-5); Neutrophil # 5.49 X10^3/uL (2.7-7.7); Neutrophil % 80.4 % (47-70); Platelet Count 219 K/mm3 (150-450); RBC Distribution Width CV 13.2 % (11.6-14.6); RBC Distribution Width SD 41.9 fl (35.1-43.9); Red Blood Count 5.11 M/mm3 (4.6-6.2); White Blood Count 6.8 K/mm3 (4.4-11.0)
--- NOTE | 2024-08-15 21:50 | RAD_ITS ---
PROCEDURE: CHEST PA AND LATERAL REASON FOR EXAM: Syncope. TECHNIQUE: Frontal and lateral views of the chest. COMPARISON: None. FINDINGS: The heart size is normal. The mediastinal contour is unremarkable. Aorta is atherosclerotic and tortuous. Subsegmental atelectasis and/or parenchymal scarring in the left mid lung. Elevation of the left hemidiaphragm. Multilevel spondylosis. RAD/Chest PA and Lateral IMPRESSION: Subsegmental atelectasis and/or scarring, left midlung. Otherwise no active cardiopulmonary disease. Reading Location: [facility]
[2024-08-15 21:53] LABS: POSITIVE DIFFERENTIAL NO
[2024-08-15] MEDS: Acetaminophen 325 MG Tablet 650 MG PO (22:01)
[2024-08-15 22:14] LABS: AST(SGOT) 18 U/L (15-37); Alanine Aminotransfer ALT/SGPT 30 U/L (16-61); Albumin, Serum 3.7 g/dL (3.2-5.0); Alkaline Phosphatase 51 U/L (45-117); Anion Gap 9 (5-15); BUN 18 mg/dL (7-18); BUN/Creat Ratio 12.9 RATIO (10-20); Calcium,Total 8.5 mg/dL (8.5-10.1); Chloride 98 mmol/L (98-107); Creatinine, Serum 1.39 mg/dL (0.70-1.30); EST Glomerular Filtration Rate 54 mL/min (>60); Est Glom Filt Rate - Afr Amer 65 mL/min (>60); Estimated Creatinine Clearance 76.09 ml/min; Globulin 3.8 g/dL (2.2-4.2); Glucose 195 mg/dL (74-106); Potassium 3.8 mmol/L (3.5-5.1); Protein, Total 7.5 g/dL (6.4-8.2); Sodium Level 134 mmol/L (136-145); Troponin-I HS (w/2H Reflex) 10 pg/mL (3.0-78.0)
--- NOTE | 2024-08-15 22:16 | EX.ED.DYSGE1 ---
HPI History of Present Illness Chief Complaint: Shortness of Breath Informant: patient and family Narrative Narrative: Patient is a 68-year-old male with history of hypertension diabetes mellitus presenting after an episode of syncope at home. Patient went to urgent care today and was diagnosed with influenza A. He was not started any treatment and told to get [id number]-[id number] Robitussin DM for his symptoms. He was walking to the bathroom this evening when he passed out. 911 was called. Per EMS report patient was 79% on room air when they arrived. He was placed on supplemental oxygen. Patient has been having a cough that has been mildly productive. Currently denies any chest pain. Denies abdominal pain nausea or vomiting. Said decreased appetite. Symptoms started approximately 3 days ago. No other complaints or concerns reported at this time. No swelling of his legs reported. Patient take his evening medicine including glyburide and metformin. Was eating yesterday but not well today. [facility] Medical History Wears glasses High cholesterol Dietary restriction Seasonal allergies Heartburn Former smoker History of stress test Diabetes Hemorrhoids HTN (hypertension) Home Medications ?Medication ?Instructions ?Recorded ?Last Taken ?Type amlodipine 10 mg tablet 10 mg PO DAILY 04/23/13 07/11/23 History hydrochlorothiazide 25 mg tablet 25 mg PO DAILY 04/23/13 07/10/23 History losartan 50 mg tablet 100 mg PO DAILY 04/23/13 07/11/23 History omega-3 fatty acids 300 mg capsule 300 mg PO DAILY 04/23/13 07/04/23 History aspirin 81 mg tablet,delayed 81 mg PO DAILY@0800 11/09/14 07/04/23 History release multivitamin with folic acid 400 1 tab PO DAILY 11/09/14 07/09/23 History mcg tablet atorvastatin 10 mg tablet (Lipitor) 20 mg PO DAILY 08/11/18 07/08/23 History metformin 500 mg tablet,extended 1,000 mg PO BID 06/29/19 07/09/23 History release 24 hr glimepiride 4 mg tablet 4 mg PO BID 07/05/23 07/08/23 History Allergy/AdvReac Type Severity Reaction Status Date / Time dapagliflozin (From [facility]) Allergy Intermediate Chest Verified 08/15/24 21:24 tightness lisinopril AdvReac Other Verified 08/15/24 21:24 Family History Father Cancer Mother Diabetes Surgical History History of carpal tunnel release of both wrists History of colonoscopy History of cholecystectomy H/O hernia repair History of vein stripping Social History Smoking Status: Former smoker alcohol intake: never ROS ROS ED Constitutional Constitutional ED: Reports chills, fever(s) and other Details: syncope, decreased apatite ENT ENT ED: Reports rhinorrhea; Denies sore throat Cardiovascular Cardiovascular: Denies chest pain or palpitations Respiratory/Chest Respiratory/Chest: Reports cough and dyspnea Gastrointestinal Gastrointestinal: Denies nausea Musculoskeletal Musculoskeletal: Reports myalgias Integumentary Denies rash Neurologic Neurologic: Reports weakness Psychiatric Psychiatric: Denies anxiety EXAM Physical Exam Const Vital Signs: 08/15/24 21:25 08/15/24 21:27 08/15/24 22:09 Temperature 100.2 F H 100.2 F H Temperature Source Oral Oral Pulse Rate 107 H 107 H Respiratory Rate 26 H 26 H Respiratory Effort Short of Breath Respiratory Depth Shallow Respiratory Pattern Tachypnea Blood Pressure 167/64 H 167/64 H Blood Pressure Mean 98 98 Pulse Ox 94 94 Oxygen Delivery Method Nasal Cannula Nasal Cannula Nasal Cannula Oxygen Flow Rate (L/min) 4 4 4 08/15/24 22:27 08/15/24 22:35 08/15/24 23:00 Temperature 100.2 F H 100.1 F H Temperature Source Oral Oral Pulse Rate 98 95 Respiratory Rate 18 20 H Respiratory Effort Respiratory Depth Respiratory Pattern Blood Pressure 165/66 H 152/73 H Blood Pressure Mean 99 99 Pulse Ox 95 88 93 Oxygen Delivery Method Nasal Cannula Room Air Nasal Cannula Oxygen Flow Rate (L/min) 2 2 08/15/24 23:12 Temperature 100.1 F H Temperature Source Pulse Rate 95 Respiratory Rate 18 Respiratory Effort Respiratory Depth Respiratory Pattern Blood Pressure 127/72 H Blood Pressure Mean 90 Pulse Ox 92 Oxygen Delivery Method Oxygen Flow Rate (L/min) Positive well nourished and well developed General Appearance ED: well developed and NAD HEENT Reports moist mucous membranes Eyes PERRL Neck supple and no JVD Chest Wall inspection of chest normal Resp normal respiratory effort Auscultation: diminished lung sounds; Negative for rhonchi or wheezes Cardio regular rhythm and no murmurs Rate: tachycardic GI normal to inspection, nondistended, normoactive bowel sounds and non-tender Extremity normal to inspection General Extremety ED: Negative for tenderness Neuro oriented x3 Sensorium / Orientation: alert Motor Exam: general weakness Psych mental status grossly normal Skin no rashes or lesions noted and no wounds Skin Narrative: Face mildly flushed MDM MDM MDM Narrative Medical decision making narrative: Patient evaluated for syncopal episode to try to go to the bathroom tonight. He was diagnosed with influenza today. He started having symptoms 3 to 4 days ago. When EMS arrived patient was quite hypoxic at 79%. He does not normally wear oxygen. Differential includes hypoxia from influenza, pneumonia, pulmonary emboli, pneumothorax, cardiogenic syncope, ELEN, dehydration, DKA and sepsis Patient given IV fluids in the emergency room. Given Tylenol as he is febrile. Patient of positive influenza test outpatient today I do not think it needs to be repeated. Workup including CBC, BMP, lactate and I since he troponin as well as BNP is obtained. Patient does have an elevated lactate of 2.5, suspect this is more from his hypoxia. He does not have a leukocytosis or left shift consistent with a bacterial infection. Sodium mildly low at 08/13/1941 does have a mild bump in his creatinine 1.39 (his baseline is 0.9-1). High since he troponin is normal at 10 and BNP is also normal. Low suspicion for cardiogenic cause. EKG does not show any arrhythmia or acute ischemia. Patient be admitted for treatment of hypoxia secondary to influenza infection. He is not wheezing so I do not think he requires aerosols or steroids at this time. Chest x-ray viewed by myself as well as radiology does not show any acute infiltrates. Case discussed with hospitalist, Dr. Perez. He would like CTA to rule out PE given his degree of hypoxia and also makes it is not a secondary pneumonia. Because patient does have an elevated lactate with setting of infection we will admit to the ICU for closer monitoring per current hospital protocol. Lab Data Attestation: I reviewed the patient's lab results. Labs: Laboratory Results - last 24 hr 02/01/25 02/01/25 20:35 21:35 WBC 6.8 RBC 5.11 Hgb 14.8 Hct 44.8 MCV 87.7 MCH 29.0 MCHC 33.0 RDW Std Deviation 41.9 RDW Coeff of Hilda 13.2 Plt Count 219 MPV 10.1 Immature Gran % (Auto) 0.400 Neut % (Auto) 80.4 H Lymph % (Auto) 7.6 L [place] % (Auto) 10.4 H Eos % (Auto) 0.6 Baso % (Auto) 0.6 Absolute Neuts (auto) 5.5 Absolute Lymphs (auto) 0.52 L Nucleated RBC % 0 Sodium 134 L Potassium 3.8 Chloride 98 Carbon Dioxide 26.0 Anion Gap 9 BUN 18 Creatinine 1.39 H Estim Creat Clear Calc 76.09 Est GFR (MDRD) Af Amer 65 Est GFR (MDRD) Non-Af 54 L BUN/Creatinine Ratio 12.9 Glucose 195 H Lactic Acid 2.5 H* Calcium 8.5 Total Bilirubin 0.70 AST 18 ALT 30 Alkaline Phosphatase 51 Troponin I High Sens 10 B-Natriuretic Peptide 15.7 Total Protein 7.5 Albumin 3.7 Globulin 3.8 Albumin/Globulin Ratio 1.0 Radiography Chest X-Ray - ED: 2 View, Read by ED Physician, Read by Radiologist and No Acute Disease Diagnostic Testing: Clinical Impression(s) from Imaging Studies Chest X-Ray 08/15/24 21:50 IMPRESSION: Subsegmental atelectasis and/or scarring, left midlung. Otherwise no active cardiopulmonary disease. [facility] Rhythm Strip Rhythm Strip: Sinus Rhythm Rate: 100 Ectopy: None EKG Initial EKG: Attestation: I personally reviewed and interpreted this EKG as follows: Interpretation: Sinus Rhythm Comments: Normal sinus rhythm rate of 100 bpm Normal axis Normal intervals Normal ST segment Management Discussion w/another healthcare provider: Hospitalist Discharge Plan Dx/Rx/DC Orders Clinical Impression: Influenza A, Respiratory insufficiency, Syncope Disposition Disposition: Acute Care Hospital [facility]
[2024-08-15 22:19] LABS: Lactic Acid 2.5 mmol/L (0.4-1.9)
[2024-08-15] MEDS: 0.9% Normal Saline (1000mL) 1,000 ML 999 ML IV (22:23)
[2024-08-15 22:25] LABS: BNP,B-Type NATRIURETIC PEPTIDE 15.7 pg/mL (0-100)
--- NOTE | 2024-08-15 23:12 | PCM.HP.STD ---
[facility] - General General Date of Admission: 08/15/24 Date of Service: 08/15/24 Chief Complaint: Fever, SOB, Wheezing and Syncope. HPI Narrative MARY AGUIAR, is a 68 M with a past medical history of essential hypertension; on amlodipine, losartan and hydrochlorothiazide, hyperlipidemia; on atorvastatin, former history of tobacco abuse (quit ~2012), morbid obesity; with BMI of 44.2 this admission, DM-2; of unknown control on metformin and glipizide, history of colon polyp; s/p resection (2022), history of internal/external hemorrhoids, history of cholecystectomy, history of inguinal hernia; s/p repair, history of umbilical hernia; s/p repair, history of vein stripping, seasonal allergies, OA and recently diagnosed influenza A two days ago as outpatient at Urgent Care who presents to [facility] ER complaining of fever, shortness of breath and syncope. Mr. Aguiar reports his symptoms began ~3 days prior to admission with the abrupt-onset of a viral upper respiratory infection. He then went to urgent care 2 days ago and was diagnosed with influenza A but was allegedly not started on treatment other than recommended [id number] Robitussin DM to manage his symptoms. Unfortunately, his symptoms worsened with fever up to 101 ?F with tachypnea and malaise and earlier in the evening he was walking to the bathroom he had a syncopal event completely passing out during exertion. His family then activated EMS who noted patient's oxygen saturation was 79% on room air upon arrival so was immediately started on supplemental oxygen. He admits to associated cough that has been mildly productive with sharply decreased appetite over the past 3 days but he denies related chest pain, abdominal pain, nausea, vomiting, diarrhea, constipation, lower extremity edema or headache - but he does admit to persistent wheezing even after multiple breathing treatements. He states he has been taking his evening medications including his glyburide and metformin though he was admittedly not eating well for the past 48 hours. His family went on to inform the ER physician that he seems to have a worsening of his shortness of breath anytime he becomes sick with any other illness suggestive of possibly evolving underlying early emphysema/COPD though he has never been formally diagnosed. In the ER he was noted to have a fever of 100.2 ?F with a pulse of 107 bpm and a respiratory rate of 26 breaths/min with shallow respirations and tachypnea with patient requiring 4L NC with resulting increased oxygen saturation to 94% with a chest x-ray that revealed subsegmental atelectasis and/or scarring in the Left midlung with otherwise no active acute cardiopulmonary disease with ER physician asked to obtain CTA of chest to evaluate for possible underlying PE given his underwhelming CXR and severe symptoms. He was then diagnosed with influenza A complicated by suspected superimposed bacterial superinfection causing Bronchitis/Pneumonia with suspected AE COPD complicated by clinical evidence of respiratory insufficiency in the setting of known previous tobacco abuse and patient who is morbidly obese with BMI 44.2 this admission compounded by hyperglycemia of 195 mg/dL present on admission in the setting of known DM-2 and he was then admitted to the general medical floor with telemetric monitoring for a stay that is expected to extend beyond 2 midnights. [facility] Medical History Wears glasses High cholesterol Dietary restriction Seasonal allergies Heartburn Former smoker History of stress test Diabetes Hemorrhoids HTN (hypertension) Home Medications ?Medication ?Instructions ?Recorded ?Last Taken ?Type amlodipine 10 mg tablet 10 mg PO DAILY 04/23/13 07/11/23 History hydrochlorothiazide 25 mg tablet 25 mg PO DAILY 04/23/13 07/10/23 History losartan 50 mg tablet 100 mg PO DAILY 04/23/13 07/11/23 History omega-3 fatty acids 300 mg capsule 300 mg PO DAILY 04/23/13 07/04/23 History aspirin 81 mg tablet,delayed 81 mg PO DAILY@0800 11/09/14 07/04/23 History release multivitamin with folic acid 400 1 tab PO DAILY 11/09/14 07/09/23 History mcg tablet atorvastatin 10 mg tablet (Lipitor) 20 mg PO DAILY 08/11/18 07/08/23 History metformin 500 mg tablet,extended 1,000 mg PO BID 06/29/19 07/09/23 History release 24 hr glimepiride 4 mg tablet 4 mg PO BID 07/05/23 07/08/23 History Allergy/AdvReac Type Severity Reaction Status Date / Time dapagliflozin (From [facility]) Allergy Intermediate Chest Verified 08/15/24 21:24 tightness lisinopril AdvReac Other Verified 08/15/24 21:24 Family History Father Cancer Mother Diabetes Surgical History History of carpal tunnel release of both wrists History of colonoscopy History of cholecystectomy H/O hernia repair History of vein stripping Social History household members: spouse housing: house current occupational status: retired Smoking Status: Former smoker alcohol intake: never ROS ROS Narrative Review of Systems: Constitutional: Patient admits to fever, chills and decreased appetite. Eyes: Patient denies changes in vision or discharge from eyes. ENT: Patient admits to runny nose but he denies sore throat or ear pain. Resp: Patient admits to shortness of breath and cough with persistent wheezing as per HPI. CV: Patient denies chest pain, palpitations, heart racing or lower extremity edema. GI: Patient denies abdominal pain, nausea, vomiting, diarrhea or constipation. : Patient denies dysuria, hematuria or urinary frequency. MSK: Patient admits to myalgias and severe generalized weakness. Skin: Patient denies rash, abscess, wounds or jaundice. Psych: Patient denies symptoms of uncontrolled depression or anxiety. Allergy: Patient denies lip swelling, tongue swelling or urticaria. Hematology: Patient denies easy bleeding or easy bruisability. Endocrinology: Patient denies polyuria, polydipsia or polyphagia. 14 point review of systems otherwise negative save for positives noted above in HPI. Vital Signs Vital Signs Vital Signs: 08/15/24 21:25 08/15/24 21:27 08/15/24 22:09 Temperature 100.2 F H 100.2 F H Temperature Source Oral Oral Pulse Rate 107 H 107 H Respiratory Rate 26 H 26 H Respiratory Effort Short of Breath Respiratory Depth Shallow Respiratory Pattern Tachypnea Blood Pressure 167/64 H 167/64 H Blood Pressure Mean 98 98 Pulse Ox 94 94 Oxygen Delivery Method Nasal Cannula Nasal Cannula Nasal Cannula Oxygen Flow Rate (L/min) 4 4 4 08/15/24 22:27 08/15/24 22:35 08/15/24 23:00 Temperature 100.2 F H 100.1 F H Temperature Source Oral Oral Pulse Rate 98 95 Respiratory Rate 18 20 H Respiratory Effort Respiratory Depth Respiratory Pattern Blood Pressure 165/66 H 152/73 H Blood Pressure Mean 99 99 Pulse Ox 95 88 93 Oxygen Delivery Method Nasal Cannula Room Air Nasal Cannula Oxygen Flow Rate (L/min) 2 2 Weight Weight: 335 lb 5.169 oz Body Mass Index (BMI) 44.2 Physical Exam Const alert and oriented x3 Constitutional Narrative: Morbidly obese patient with tachypnea and labored respirations. General Appearance: cooperative HEENT normocephalic, head/scalp atraumatic and hearing grossly normal bilaterally HEENT Narrative: Mucous membranes dry. Eyes PERRL, EOMs intact bilaterally and conjunctivae normal Neck no lymphadenopathy and supple Resp Resp Narrative: Diminished breath sounds throughout with scattered wheezing throughout out all lung russ. Auscultation: wheezes Cardio regular rate and regular rhythm GI normal to inspection, nondistended, normoactive bowel sounds, soft to palpation, non-tender and non-distended GI Narrative: Morbidly obese. Extremity normal to inspection, full ROM and no clubbing, cyanosis or edema Skin Skin Narrative: Patient has no evidence of rash, abscess, wound or jaundice. Neuro oriented x3, CN's II-XII intact bilaterally, moves all extremities and no focal motor deficits Sensorium / Orientation: awake, alert, oriented to person, oriented to place and oriented to time Speech: speech normal Psych affect normal Results Medical Records Data Attestation: I reviewed the patient's medical records Lab / Micro Data Attestation: I reviewed the patient's lab results. 08/16/24 05:00 08/16/24 05:00 Labs: Laboratory Results - last 24 hr 08/15/24 20:35: B-Natriuretic Peptide 15.7 08/15/24 21:35: WBC 6.8, RBC 5.11, Hgb 14.8, Hct 44.8, MCV 87.7, MCH 29.0, MCHC 33.0, RDW Std Deviation 41.9, RDW Coeff of Hilda 13.2, Plt Count 219, MPV 10.1, Immature Gran % (Auto) 0.400, Neut % (Auto) 80.4 H, Lymph % (Auto) 7.6 L, Wilkin % (Auto) 10.4 H, Eos % (Auto) 0.6, Baso % (Auto) 0.6, Absolute Neuts (auto) 5.5, Absolute Lymphs (auto) 0.52 L, Nucleated RBC % 0, Sodium 134 L, Potassium 3.8, Chloride 98, Carbon Dioxide 26.0, Anion Gap 9, BUN 18, Creatinine 1.39 H, Estim Creat Clear Calc 76.09, Est GFR (MDRD) Af Amer 65, Est GFR (MDRD) Non-Af 54 L, BUN/Creatinine Ratio 12.9, Glucose 195 H, Lactic Acid 2.5 H*, Calcium 8.5, Total Bilirubin 0.70, AST 18, ALT 30, Alkaline Phosphatase 51, Troponin I High Sens 10, Total Protein 7.5, Albumin 3.7, Globulin 3.8, Albumin/Globulin Ratio 1.0 Imaging Radiology Impression Chest X-Ray 08/15/24 21:50 IMPRESSION: Subsegmental atelectasis and/or scarring, left midlung. Otherwise no active cardiopulmonary disease. Reading Location: [facility] Imaging Services [address] [place] [id number] CTA Chest W/WO Contrast MR#: [id number] Acct: [id number] Name: MARY AGUIAR Rep #: [id number] : 1955 M 68 From: Lior Santos DO PCP: Dr. Rick Henderson MD Status: ADM IN Study: CTA Chest W/WO Contrast Date of Exam: 08/15/24 Exam# [id number] Ordering Dr: Vera Orta DO PROCEDURE: CTA CHEST with IV CONTRAST REASON FOR EXAM: Shortness of the breath. TECHNIQUE: CTA imaging of the chest with intravenous contrast. 3D reconstructions. COMPARISON: Chest x-ray from 08/15/2024. FINDINGS: There is suboptimal contrast opacification of the pulmonary arterial vasculature limiting assessment for pulmonary embolism. However, no definite central pulmonary embolism is seen. Cardiac size is within normal limits. Thoracic aorta demonstrates normal caliber with atherosclerotic calcifications. Coronary artery calcifications are identified. There are small mediastinal lymph nodes. No pericardial or pleural effusions identified. Evaluation of the lung parenchyma demonstrates airspace opacities in the lingula and left lower lobe. Additionally, there is mild ground-glass attenuation in the right middle lobe and right lower lobe. Central airway is patent. No pneumothorax is identified. Upper abdomen demonstrates no acute findings. Evaluation of the osseous structures demonstrates degenerative changes. CT/CTA Chest W/WO Contrast IMPRESSION: 1. Suboptimal contrast opacification of the pulmonary arterial vasculature limited assessment for pulmonary embolism. However, no definite central pulmonary embolism is identified. 2. Airspace opacities in the lingula and left lower lobe and mild ground-glass attenuation in the right middle lobe and right lower lobe likely on an infectious inflammatory basis. One or more dose reduction techniques were used (e.g., Automated exposure control, adjustment of the mA and/or kV according to patient size, use of iterative reconstruction technique). Reading Location: [facility] Assessment & Plan Assessment/Plan (1) Sepsis: QUALIFIERS: Sepsis acute organ dysfunction status: without acute organ dysfunction Sepsis type: sepsis due to unspecified organism Qualified Code(s): A41.9 - Sepsis, unspecified organism (2) Lactic acidosis: (3) Influenza A: (4) COPD exacerbation: (5) Pneumonia: QUALIFIERS: Laterality: left Lung location: lower lobe of lung Pneumonia type: due to unspecified organism Qualified Code(s): J18.9 - Pneumonia, unspecified organism (6) Respiratory insufficiency: (7) Syncope: QUALIFIERS: Syncope type: unspecified Qualified Code(s): R55 - Syncope and collapse (8) Former smoker: (9) Morbid obesity with BMI of 40.0-44.9, adult: PLAN: Plan 1. Influenza A with suspected superimposed bacterial superinfection causing LLL Pneumonia with Lactic Acidosis of 2.5 mmol/L present on admission and Fever due to possible Sepsis - Admit to ICU under droplet and contact precautions. Start empiric IV Zosyn and IV vancomycin to cover for MRSA and await culture and sensitivity data. Serialize lactate. Check urinary antigens to Streptococcus pneumonia and Legionella. Start Tamiflu 45 mg p.o. twice daily. Give Mucinex and nebulizers as needed. Give acetaminophen as needed for [id number] (level 1-5/10) pain or fever. Give morphine IV as needed for severe (level 6-10/10) pain. Follow up with 2. AE COPD with Respiratory Insufficiency due to #1 - Wean supplemental oxygen as tolerated. 3. Syncope complicating #1 & #2 - Volume resuscitate with NS IVF. Serialize troponin. Check echocardiogram to evaluate LVEF. Check carotid Doppler to evaluate for stenosis. 4. Former history of tobacco abuse (quit ~2012) with patient becoming short of breath with any acute illness compounding #1 - #3 - Noted with patient persistently wheezing in all lung field after multiple breathing treatments. 5. Morbid Obesity; with BMI of 44.2 this admission adding to the burden of disease outlined from #1 - #4 - Weight loss will be recommended. Check TSH. This complicates his case and may hamper recovery. 6. DM-2; of unknown control on metformin and glipizide with Hyperglycemia of 195 mg/dL and HgbA1c of 6.7% present on admission - ADA diet. FSBS q. AC/HS plus SSI. Hold oral hypoglycemic agents during hospitalization. Metformin should additionally be held ~72 hours after IV contrast given for CTA of chest. 7. Essential Hypertension; on amlodipine, losartan and hydrochlorothiazide - Continue amlodipine but hold losartan and hydrochlorothiazide with elevated serum creatinine of 1.39 mg/dL present on admission. Give hydralazine IV prn for systolic blood pressure > 160 mmHg. 8. Hyperlipidemia; on atorvastatin - Hold statin until patient's condition improves. 9. History of colon polyp; s/p resection (2022) - Noted. 10. History of internal/external hemorrhoids - Stable. 11. History of cholecystectomy - Noted. 12. History of inguinal hernia; s/p repair - Noted. 13. History of umbilical hernia; s/p repair - Noted. 14. History of vein stripping - Noted. 15. Seasonal allergies - Noted with no active complaints related to this diagnosis at this time. Give antihistamines prn if symptoms develop. 16. OA - Give acetaminophen prn. 17. DVT prophylaxis - Heparin 5,000U sq TID plus SCD's. Total time: Approximately (but not less than) 75 minutes. Sepsis Attestation Sepsis Alert: Yes Sepsis Attestation: Agree w/Sepsis Date exam was performed: 08/16/24 Time exam was performed: 02:30 Possible Source of Sepsis: Pulmonary Sepsis Organ Dysfunction Criteria Present: Lactic Acid > 2 mmol/L Supportive Findings: Patient has confirmed influenza A plus bacterial superinfection and left lower lobe with lactic acidosis of 2.5 mmol/L present on admission and fever requiring admission to ICU with newly diagnosed COPD exacerbation. Fluid Resuscitation Fluid resuscitation indicated?: Yes Fluid Resuscitation ordered: 30 ml/kg fluid bolus ordered Amount of fluid ordered: 4 Sepsis Note Date exam was performed: 08/16/24 Time exam was performed: 06:39 Sepsis Attestation: Sepsis re-evaluation was performed Response to fluids: Fluid responsive hypotension Charges/Coding Visit Charges Inpatient E&M: 70487 Init Hosp L3
--- NOTE | 2024-08-15 23:32 | ECHOCS_ITS ---
Reason For Study: SYNCOPE Procedure This was a 2D Doppler, Color Flow transthoracic echocardiogram. The study was technically difficult. Contrast injection was performed. Exam performed portable in ICU/CCU. Left Ventricle Normal LV size. Mild concentric left ventricular hypertrophy. Left ventricular systolic function is normal. The left ventricular ejection fraction is 65 %. No regional wall motion abnormalities noted. Right Ventricle Normal RV size. Normal systolic function. Atria Normal left atrium. Normal right atrium. Mitral Valve Mitral valve not well visualized. Tricuspid Valve The tricuspid valve is not well visualized. Aortic Valve Trisinus/trileaflet aortic valve. Mild focal aortic valve thickening. Pulmonic Valve The pulmonic valve is not well visualized. Great Vessels Normal aortic root. The pulmonary artery is normal size. Inferior vena cava collapse with respiration. Pericardium/Pleural No pericardial effusion. Medication Diluted definity 1ml given slow IV push to enhance endocardial definition. MMode/2D Measurements & Calculations LVIDd: 4.9 cm IVSd: 1.2 cm LAV(MOD-bp): 65.9 ml LVIDs: 3.7 cm LVPWd: 1.5 cm FS: 25.2 % LAV(MOD-bp) Indexed: 24.5 ml/m2 LAV(MOD-sp2): 66.6 ml LAV(MOD-sp4): 56.4 ml _ SV(MOD-sp4): 115.8 ml SV(sp4-el): 112.3 ml LVAd ap4: 43.4 cm2 LVLd ap4: 9.1 cm SI(MOD-sp4): 43.1 ml/m2 EDV(MOD-sp4): 177.9 ml EDV(sp4-el): 175.3 ml LVAs ap4: 23.3 cm2 LVLs ap4: 7.3 cm ESV(MOD-sp4): 62.1 ml ESV(sp4-el): 63.0 ml EF(MOD-sp4): 65.1 % EF(sp4-el): 64.0 % _ LA dimension(2D): 4.4 cm LA A4 area: 22.0 cm2 RA A4 area: 19.6 cm2 Time Measurements MV dec time: 0.15 sec Doppler Measurements & Calculations MV E max mulugeta: 99.5 cm/sec Lat Peak E' Mulugeta: 11.9 cm/sec Med Peak E' Mulugeta: 13.1 cm/sec MV A max mulugeta: 107.8 cm/sec E/E' lat: 8.4 E/E' med: 7.6 MV E/A: 0.92 _ MV V2 max: 114.4 cm/sec MV dec slope: 650.0 cm/sec2 Ao V2 max: 228.6 cm/sec MV max P.3 mmHg Ao max P.0 mmHg MV V2 mean: 76.0 cm/sec Ao V2 mean: 165.7 cm/sec MV mean P.5 mmHg Ao mean P.6 mmHg MV V2 VTI: 33.9 cm Ao V2 VTI: 47.2 cm AV (velocity ratio): 0.76 _ LV V1 max: 142.9 cm/sec PA V2 max: 94.1 cm/sec LV V1 max P.2 mmHg PA V2 mean: 66.6 cm/sec LV V1 mean P.1 mmHg LV V1 mean: 120.0 cm/sec LV V1 VTI: 35.8 cm ECHO/Echo Complete W/ Contrast Interpretation Summary Normal LV size. Left ventricular systolic function is normal. The left ventricular ejection fraction is 65 %. Mild concentric left ventricular hypertrophy. Contrast injection was performed. Ordering Physician: Tanner Bah Referring Physician: EAN SOW Performed By: Yara Shine RCS
--- NOTE | 2024-08-15 23:32 | CDU_ITS ---
Reason For Study: Syncope Rt. Velocities/BP Lt. Velocities/BP Prox CCA 94.9/15.7 cm/sec. Prox CCA 108.3/15.2 cm/sec. Mid CCA 88.3/12.4 cm/sec. Mid CCA 104.7/17 cm/sec. Dist CCA 87.2/16.8 cm/sec. Dist CCA 101/13.3 cm/sec. Prox ICA 84.6/17 cm/sec. Prox ICA 165.3/27 cm/sec. Mid ICA 104.7/22.5 cm/sec. Mid ICA 95.1/16 cm/sec. Dist ICA 88.2/27.9 cm/sec. Dist ICA 75.2/14.3 cm/sec. Rt. ICA/CCA = 1.19. Lt. ICA/CCA = 1.58. Prox ECA 133.9/13.3 cm/sec. Prox ECA 208.1/16.3 cm/sec. Rt. Vert. 55.3/17 cm/sec. Lt. Vert. 75.4/20.6 cm/sec. Right Extracranial There is intimal thickening but no significant atherosclerotic plaque noted in the right common carotid artery. There is heterogeneous, irregular atherosclerotic plaque noted in the right internal carotid artery. There is heterogeneous, irregular atherosclerotic plaque noted in the right external carotid artery. Antegrade flow is noted in the right vertebral artery. Left Extracranial There is heterogeneous, irregular atherosclerotic plaque noted in the left common carotid artery. There is heterogeneous, irregular atherosclerotic plaque noted in the left internal carotid artery. There is heterogeneous, irregular atherosclerotic plaque noted in the left external carotid artery. Antegrade flow is noted in the left vertebral artery. Procedure Carotid Duplex [id number]. This is a Carotid Duplex examination using B-mode, color flow and specral Doppler. Exam performed portable in ICU/CCU. VL/Carotid Duplex Ultrasound Interpretation Summary Mild (<50%) stenosis right extracranial internal carotid. Moderate (50-69%) stenosis left extracranial internal carotid. Patent and antegrade vertebrals bilaterally. Ordering Physician: Tanner Bah Referring Physician: Rick Henderson Performed By: Tracy Esparza RVT
--- NOTE | 2024-08-15 23:45 | CT_ITS ---
PROCEDURE: CTA CHEST with IV CONTRAST REASON FOR EXAM: Shortness of the breath. TECHNIQUE: CTA imaging of the chest with intravenous contrast. 3D reconstructions. COMPARISON: Chest x-ray from 08/15/2024. FINDINGS: There is suboptimal contrast opacification of the pulmonary arterial vasculature limiting assessment for pulmonary embolism. However, no definite central pulmonary embolism is seen. Cardiac size is within normal limits. Thoracic aorta demonstrates normal caliber with atherosclerotic calcifications. Coronary artery calcifications are identified. There are small mediastinal lymph nodes. No pericardial or pleural effusions identified. Evaluation of the lung parenchyma demonstrates airspace opacities in the lingula and left lower lobe. Additionally, there is mild ground-glass attenuation in the right middle lobe and right lower lobe. Central airway is patent. No pneumothorax is identified. Upper abdomen demonstrates no acute findings. Evaluation of the osseous structures demonstrates degenerative changes. CT/CTA Chest W/WO Contrast IMPRESSION: 1. Suboptimal contrast opacification of the pulmonary arterial vasculature limi andrea assessment for pulmonary embolism. However, no definite central pulmonary embolism is identified. 2. Airspace opacities in the lingula and left lower lobe and mild ground-glass attenuation in the right middle lobe and right lower lobe likely on an infectious inflammatory basis. One or more dose reduction techniques were used (e.g., Automated exposure contr ol, adjustment of the mA and/or kV according to patient size, use of iterative reconstruction technique). Reading Location: [facility]
[2024-08-15 23:46] LABS: Reflex Troponin-HS? (from REC) Y
[2024-08-16] VITALS (37 sets, daily range): BP systolic 117–198; BP diastolic 55–137; PULSE 77–123; RESP 18–38; TEMP 37.1–37.9; O2SAT 77–97; BMI 44.5
[2024-08-16] MEDS: 0.9% Normal Saline (1000mL) 1,000 ML 999 ML IV ×4 (00:05→05:01)
[2024-08-16 00:13] LABS: Hemoglobin A1c 6.7 % (3.8-5.6)
[2024-08-16 00:15] LABS: Magnesium 1.7 mg/dL (1.6-2.6); Thyroid Stim Hormone (TSH) 0.461 uIU/mL (0.358-3.740); Troponin-I HS 15 pg/mL (3.0-78.0)
[2024-08-16 01:46] LABS: Reflex Lactate? Y
[2024-08-16 02:06] LABS: Bacteria 0 SEEN /hpf (None Seen); Mucous, Urine 0 SEEN /hpf (<or=2+); Red Blood Cells-Urine 0 SEEN /hpf (0-5); Squamous Epithelial Cells - UA 0 SEEN /hpf (0-5); White Blood Cells 0 SEEN /hpf (0-5)
[2024-08-16 02:12] LABS: Color, Urine Yellow (Yellow); Glucose, Dipstick Normal (Normal); Ketone-Dipstick Negative (Negative); Leukocyte Esterase-Dipstick 25 /ul (Negative); Nitrite-Dipstick Negative (Negative); Occult Blood-Urine 10 /ul (Negative); Protein-Dipstick 30 mg/dl (Negative); Specific Gravity, Urine 1.015 (1.002-1.030); Urine Bilirubin Dipstick Negative (Negative); Urine Clarity Clear (Clear); Urine Urobilinogen Normal (Normal)
[2024-08-16 02:24] LABS: Lactic Acid 1.8 mmol/L (0.4-1.9)
[2024-08-16] MEDS: Vancomycin HCl 2,000 MG in 0.9% Normal Saline (500mL Bag) 500 ML 250 MG IV (02:52)
[2024-08-16] MEDS: Ondansetron 4 MG/2 ML Vial IV (02:53)
[2024-08-16] MEDS: Acetaminophen 325 MG Tablet 650 MG PO (03:05)
[2024-08-16] MEDS: guaiFENesin 10 ML UDC (200MG/10ML) 20 ML PO (03:05)
--- NOTE | 2024-08-16 03:15 | PCM.RX.CS ---
Consult Antibiotic Management Pharmacy has been consulted to manage selected antibiotic: Vancomycin Type of Intervention Type of Consult: New start Suspected Infection Suspected Infection: Sepsis Labs Labs: Sodium 134 mmol/L (136-145) L 08/15/24 21:35 Potassium 3.8 mmol/L (3.5-5.1) 08/15/24 21:35 Chloride 98 mmol/L (98-107) 08/15/24 21:35 Carbon Dioxide 26.0 mmol/L (21.0-32.0) 08/15/24 21:35 Anion Gap 9 (5-15) 08/15/24 21:35 BUN 18 mg/dL (7-18) 08/15/24 21:35 Creatinine 1.39 mg/dL (0.70-1.30) H 08/15/24 21:35 Est GFR (MDRD) Af Amer 65 mL/min (>60) 08/15/24 21:35 Est GFR (MDRD) Non-Af 54 mL/min (>60) L 08/15/24 21:35 BUN/Creatinine Ratio 12.9 RATIO (10-20) 08/15/24 21:35 Glucose 195 mg/dL (74-106) H 08/15/24 21:35 Microbiology Microbiology: Microbiology 08/16/24 02:00 Urine, Random Legionella Antigen - Final 08/16/24 02:00 Urine, Random Streptococcus pneumoniae Antigen (M - Final Dosing Weight Weight used for dosin kg Estimated Creatinine Clearance Estimated Creatinine Clearance: 76 Goal Trough Goal Trough: 15-20 mcg/mL Pharmacy Plan for Drug Dosing Pharmacy Plan for Drug Dosing: Pharmacy Service will continue to monitor and adjust dosing as required. Follow-Up Labs Follow-Up Labs: Trough: Vancomycin Date/Time Labs Ordered Labs to be done on [date and time ordered]: 08/17/24 @3486
[2024-08-16] MEDS: Albuterol 2.5 MG/3 ML VIAL.NEB. INHALATION ×3 (03:30→07:02)
[2024-08-16] MEDS: Heparin Injection (Vial) 5,000 UNIT/ML VIAL 5000 UNIT SC ×3 (05:00→21:32)
[2024-08-16] MEDS: Piperacil/Tazobactam 3.375 GM in 0.9% Normal Saline (50mL MB+) 50 ML IV ×3 (05:05→21:33)
[2024-08-16 05:14] LABS: Absolute Lymphocyte Count 0.41 X10^3/uL (0.83-4.51); Absolute Neutrophil Count 4.6 X10^3/uL (2.0-7.7); Basophil# 0.03 X10^3/uL; Basophil% 0.5 % (0-1); Eosinophil# 0.01 X10^3/uL; Eosinophils% 0.2 % (0-5); Hematocrit 41.4 % (40-54); Hemoglobin 13.4 g/dL (13.0-16.5); Lymphocyte # 0.41 X10^3/ul (0.83-4.51); Lymphocyte % 7.2 % (19-41); Mean Corp Hgb Conc 32.4 g/dL (32-36); Mean Corpuscular Hgb 29.1 pg (27.0-32.0); Mean Corpuscular Volume 89.8 fL (80-94); Mean Platelet Vol. 10.1 fl (6.2-12.0); Monocyte# 0.61 X10^3/uL; Monocyte% 10.7 % (0-10); NRBC Flagged by Analyzer 0 % (0-5); Neutrophil # 4.59 X10^3/uL (2.7-7.7); Neutrophil % 80.9 % (47-70); POSITIVE DIFFERENTIAL YES; Platelet Count 166 K/mm3 (150-450); RBC Distribution Width CV 13.5 % (11.6-14.6); RBC Distribution Width SD 44.4 fl (35.1-43.9); Red Blood Count 4.61 M/mm3 (4.6-6.2); White Blood Count 5.7 K/mm3 (4.4-11.0)
[2024-08-16 05:37] LABS: AST(SGOT) 22 U/L (15-37); Alanine Aminotransfer ALT/SGPT 26 U/L (16-61); Albumin, Serum 3.2 g/dL (3.2-5.0); Alkaline Phosphatase 41 U/L (45-117); Anion Gap 7 (5-15); BUN 17 mg/dL (7-18); Calcium,Total 7.3 mg/dL (8.5-10.1); Chloride 105 mmol/L (98-107); Creatinine, Serum 1.06 mg/dL (0.70-1.30); EST Glomerular Filtration Rate 73 mL/min (>60); Est Glom Filt Rate - Afr Amer 89 mL/min (>60); Estimated Creatinine Clearance 100.14 ml/min; Globulin 3.3 g/dL (2.2-4.2); Glucose 149 mg/dL (74-106); Phosphorus 3.6 mg/dL (2.5-4.9); Potassium 3.7 mmol/L (3.5-5.1); Protein, Total 6.5 g/dL (6.4-8.2); Sodium Level 137 mmol/L (136-145)
[2024-08-16 05:54] LABS: Cholesterol 85 mg/dL (200); High Density Lipoprotein 40 mg/dL; Triglycerides 65 mg/dL; Very Low Density Lipoprotein 13 mg/dL (5-40)
--- NOTE | 2024-08-16 06:05 | RAD_ITS ---
PROCEDURE: CHEST 1 VIEW (PORTABLE) REASON FOR EXAM: Influenza a and pneumonia. TECHNIQUE: Frontal view of the chest. COMPARISON: Yesterday, 08/16/2024 FINDINGS: Stable heart size. Atherosclerotic and tortuous aorta Right lower lobe opacities. Airspace consolidation in the lingula and left lower lobe. Elevation of the left hemidiaphragm. Blunting of the left lateral costophrenic angle. RAD/Chest 1 View (Portable) IMPRESSION: 1. Bilateral lung infiltrates. 2. Elevation of the left hemidiaphragm. Reading Location: [facility]
[2024-08-16] MEDS: MethylPREDNISolone 125 MG/2 ML Vial IV (06:17)
[2024-08-16] MEDS: 0.9% Normal Saline (1000mL) 1,000 ML 70 ML IV (06:17)
--- NOTE | 2024-08-16 07:03 | CPS ---
Around 0700, during shift change, Airvo was set up and placed on patient due to high O2 demands, dry cough and work of breathing. Patient was unable to tolerate, lasting only 10 minutes on 55% at 40lpm. Patient placed back on 10lpm high flow with bubbler humidifier added. Discussed with AYALA Celis and Dr An. Airvo will be removed from room.
--- NOTE | 2024-08-16 07:27 | PCM.PN.HOSP ---
Reason for Visit Reason for Visit: Diagnoses Sepsis, unspecified organism (08/15/24) Morbid (severe) obesity due to excess calories (08/15/24) Acidosis, unspecified (08/15/24) Influenza due to other identified influenza virus with other respiratory manifestations (08/15/24) Pneumonia, unspecified organism (08/15/24) Chronic obstructive pulmonary disease with (acute) exacerbation (08/15/24) Other abnormalities of breathing (08/15/24) Syncope and collapse (08/15/24) Body mass index [BMI] 40.0-44.9, adult (08/15/24) Personal history of nicotine dependence (08/15/24) Objective Data Objective Data Vital Signs: Vital Signs Temp Pulse Resp BP Pulse Ox O2 Del Method O2 Flow Rate 99.7 F H 102 H 22 H 136/60 H 93 Nasal Cannula 10 08/16/24 05:00 08/16/24 07:00 08/16/24 07:00 08/16/24 07:00 08/16/24 07:00 08/16/24 07:00 08/16/24 07:00 Oxygen Flow Rate (L/min) 10 Oxygen Delivery Method Nasal Cannula Weight: 337 lb 8.443 oz Body Mass Index (BMI) 44.5 Intake & Output: Intake and Output for Last 24 Hours 08/14/24 08/15/24 08/16/24 23:59 23:59 23:59 Intake Total 5690 / 5690 Output Total 200 / 200 Balance 5490 / 5490 Lab / Micro Data 08/16/24 05:00 08/16/24 05:00 Labs: Laboratory Results - last 24 hr 08/15/24 02:00: Urine Color Yellow, Urine Clarity Clear, Urine pH 5.0, Ur Specific [place] 1.015, Urine Protein 30 H, Urine Glucose (UA) Normal, Urine Ketones Negative, Urine Occult Blood 10 H, Urine Nitrite Negative, Urine Bilirubin Negative, Urine Urobilinogen Normal, Ur Leukocyte Esterase 25 H, Urine RBC 0 SEEN, Urine WBC 0 SEEN, Ur Squamous Epith Cells 0 SEEN, Urine Bacteria 0 SEEN, Urine Mucus 0 SEEN 08/15/24 20:35: B-Natriuretic Peptide 15.7 08/15/24 21:35: WBC 6.8, RBC 5.11, Hgb 14.8, Hct 44.8, MCV 87.7, MCH 29.0, MCHC 33.0, RDW Std Deviation 41.9, RDW Coeff of Hilda 13.2, Plt Count 219, MPV 10.1, Immature Gran % (Auto) 0.400, Neut % (Auto) 80.4 H, Lymph % (Auto) 7.6 L, [place] % (Auto) 10.4 H, Eos % (Auto) 0.6, Baso % (Auto) 0.6, Absolute Neuts (auto) 5.5, Absolute Lymphs (auto) 0.52 L, Nucleated RBC % 0, Sodium 134 L, Potassium 3.8, Chloride 98, Carbon Dioxide 26.0, Anion Gap 9, BUN 18, Creatinine 1.39 H, Estim Creat Clear Calc 76.09, Est GFR (MDRD) Af Amer 65, Est GFR (MDRD) Non-Af 54 L, BUN/Creatinine Ratio 12.9, Glucose 195 H, Lactic Acid 2.5 H*, Calcium 8.5, Total Bilirubin 0.70, AST 18, ALT 30, Alkaline Phosphatase 51, Troponin I High Sens 10, Total Protein 7.5, Albumin 3.7, Globulin 3.8, Albumin/Globulin Ratio 1.0 08/15/24 23:42: Hemoglobin A1c 6.7 H, Magnesium 1.7, Troponin I High Sens 15, TSH 0.461 08/16/24 01:54: Lactic Acid 1.8 08/16/24 05:00: WBC 5.7, RBC 4.61, Hgb 13.4, Hct 41.4, MCV 89.8, MCH 29.1, MCHC 32.4, RDW Std Deviation 44.4 H, RDW Coeff of Hilda 13.5, Plt Count 166, MPV 10.1, Immature Gran % (Auto) 0.500, Neut % (Auto) 80.9 H, Lymph % (Auto) 7.2 L, [place] % (Auto) 10.7 H, Eos % (Auto) 0.2, Baso % (Auto) 0.5, Absolute Neuts (auto) 4.6, Absolute Lymphs (auto) 0.41 L, Nucleated RBC % 0, Sodium 137, Potassium 3.7, Chloride 105, Carbon Dioxide 25.0, Anion Gap 7, BUN 17, Creatinine 1.06, Estim Creat Clear Calc 100.14, Est GFR (MDRD) Af Amer 89, Est GFR (MDRD) Non-Af 73, BUN/Creatinine Ratio 16.0, Glucose 149 H, Calcium 7.3 L, Phosphorus 3.6, Total Bilirubin 0.50, AST 22, ALT 26, Alkaline Phosphatase 41 L, Total Protein 6.5, Albumin 3.2, Globulin 3.3, Albumin/Globulin Ratio 1.0, Triglycerides 65, Cholesterol 85, LDL Cholesterol 32, VLDL Cholesterol 13, HDL Cholesterol 40 Micro: Microbiology 08/16/24 02:00 Urine, Random Legionella Antigen - Final 08/16/24 02:00 Urine, Random Streptococcus pneumoniae Antigen (M - Final Radiography Diagnostic Testing: Radiology Impression Chest X-Ray 08/15/24 21:50 IMPRESSION: Subsegmental atelectasis and/or scarring, left midlung. Otherwise no active cardiopulmonary disease. Reading Location: [facility] Chest CTA 08/15/24 23:45 IMPRESSION: 1. Suboptimal contrast opacification of the pulmonary arterial vasculature limited assessment for pulmonary embolism. However, no definite central pulmonary embolism is identified. 2. Airspace opacities in the lingula and left lower lobe and mild ground-glass attenuation in the right middle lobe and right lower lobe likely on an infectious inflammatory basis. One or more dose reduction techniques were used (e.g., Automated exposure control, adjustment of the mA and/or kV according to patient size, use of iterative reconstruction technique). Reading Location: [facility] Chest X-Ray 08/16/24 06:05 IMPRESSION: 1. Bilateral lung infiltrates. 2. Elevation of the left hemidiaphragm. Reading Location: [facility] Rhythm Strip Rhythm Strip: Sinus Rhythm Rate: 100 Ectopy: None Physical Exam Narrative Patient is stated he has been short of breath for 2 to 3 weeks but for last 3 days shortness of breath got worse along with a cough. Diagnosed with influenza A in urgent care. At home he had syncope and therefore admitted. He could not tolerate Airvo though recommended. On high flow 10 L of oxygen Physical exam General: Alert, Oriented x3, Cooperative HEENT: Atraumatic, PERRLA, EOMI, Normocephalic Oral: No Gingival or Mucosal Lesions/ Ulcerations Neck: Supple, No JVD, Negative Carotid Bruits Chest wall/Lungs: Air entry diminished in bilateral lung bases. Tachypnea and shortness of breath. Bilateral coarse rhonchi and wheezing Cardiovascular: Regular rate, Regular Rhythm, Normal S1, Normal S2, systolic murmur. Abdomen: Bowel Sounds Present, Soft, Non Tender, Non-Distended : No dysuria. No renal angle tenderness. No suprapubic tenderness. Extremities: Mild edema, Capillary Refill Less than 3 Seconds Skin: No rashes, No breakdown Musculoskeletal: No Tenderness to Palpation of Joints or Extremities Neurological: Cranial nerves II-XII grossly intact, DTR 2+/4. No acute focal neurological deficit. Psych/Mental Status: Normal Affect, Appropriate. Assessment & Plan Assessment/Plan (1) Sepsis: QUALIFIERS: Sepsis acute organ dysfunction status: without acute organ dysfunction Sepsis type: sepsis due to unspecified organism Qualified Code(s): A41.9 - Sepsis, unspecified organism (2) Lactic acidosis: (3) Influenza A: (4) COPD exacerbation: (5) Pneumonia: QUALIFIERS: Laterality: left Lung location: lower lobe of lung Pneumonia type: due to unspecified organism Qualified Code(s): J18.9 - Pneumonia, unspecified organism (6) Respiratory insufficiency: (7) Syncope: QUALIFIERS: Syncope type: unspecified Qualified Code(s): R55 - Syncope and collapse (8) Former smoker: (9) Morbid obesity with BMI of 40.0-44.9, adult: PLAN: Plan 68-year-old gentleman was brought to ED after an episode of syncope, diagnosed with influenza A in urgent care. After he went home, he was seen and passed out. EMS found pulse oximetry 79% on room air. Patient has mild productive cough, denies any chest pain, nausea vomiting or abdominal pain. Symptoms started 3 days ago. Fever Tmax 100.2 Fahrenheit 1. Influenza A with suspicion of superimposed bacterial infection suggestive of sepsis: Patient admitted in ICU with suspicion of sepsis. The patient presented with sepsis with clinical indicators of tachypnea, tachycardia, leukocytosis due to pneumonia as described below with acute sepsis-related organ dysfunction as evidenced by acute hypoxic respiratory failure and lactic acidosis Patient did not had hypotension but lactic acidosis 2.5. CTAP does not show pulmonary embolism but airspace opacities in the lingula and left lower lobe and mild ground-glass attenuation in the right middle lobe and lower lobe likely on an infectious inflammatory basis. Patient was started on Tamiflu. Empirically started on IV vancomycin and Zosyn. 2. AE COPD with history of former tobacco use, quit 2013: Patient is being managed on scheduled bronchodilator, IV Solu-Medrol, Mucinex, incentive spirometry and Pep. 3. Syncope - Volume resuscitate with NS IVF. Serialize troponin. Check echocardiogram to evaluate LVEF. Check carotid Doppler to evaluate for stenosis. 5. Morbid Obesity; with BMI of 44.2 this admission adding to the burden of disease outlined from #1 - #4 - Weight loss will be recommended. Check TSH. This complicates his case and may hamper recovery. 6. DM-2; of unknown control on metformin and glipizide with Hyperglycemia of 195 mg/dL and HgbA1c of 6.7% present on admission - ADA diet. FSBS q. AC/HS plus SSI. Hold oral hypoglycemic agents during hospitalization. Metformin should additionally be held ~72 hours after IV contrast given for CTA of chest. 7. Essential Hypertension; on amlodipine, losartan and hydrochlorothiazide - Continue amlodipine but hold losartan and hydrochlorothiazide with elevated serum creatinine of 1.39 mg/dL present on admission. Give hydralazine IV prn for systolic blood pressure > 160 mmHg. 8. Hyperlipidemia; on atorvastatin - Hold statin until patient's condition improves. 17. DVT prophylaxis - Heparin 5,000U sq TID plus SCD's. Charges/Coding Visit Charges Inpatient E&M: 84724 [facility] Hosp L3
[2024-08-16] MEDS: Insulin Lispro 100 UNIT/ML INSULN.PEN SC ×4 (07:56→21:33)
[2024-08-16] MEDS: Ascorbic Acid 500 MG Tablet 1000 MG PO ×2 (07:57→15:58)
[2024-08-16] MEDS: Lactobacillis Acidophilus 1 CAP PO ×4 (07:57→21:32)
[2024-08-16] MEDS: amLODIPine 10 MG Tablet PO (07:57)
[2024-08-16] MEDS: Aspirin 81 MG TAB.CHEW PO (07:57)
[2024-08-16] MEDS: Cholecalciferol (Vit D3) 125 MCG CAPSULE (5,000 UNITS) PO (07:58)
[2024-08-16] MEDS: guaiFENesin/D-Methorphan TAB.SR.12H 2 TABLET PO ×2 (08:04→21:32)
[2024-08-16] MEDS: Oseltamivir Phosphate 75 MG Capsule PO ×2 (08:04→21:32)
[2024-08-16 08:06] LABS: Bedside Glucose 161 mg/dL (74-106)
[2024-08-16] MEDS: Glycerin/Hypromellose/PEG400 15 ml Bottle 2 DRP EACH EYE ×2 (09:58→14:41)
[2024-08-16 11:37] LABS: Bedside Glucose 253 mg/dL (74-106)
[2024-08-16] MEDS: Ipratropium/Albuterol Sulfate 3 ML AMPUL.NEB INHALATION ×4 (11:56→22:48)
[2024-08-16] MEDS: Vancomycin HCl 1,750 MG in 0.9% Normal Saline (500mL Bag) 500 ML 250 MG IV (14:38)
[2024-08-16 16:14] LABS: Bedside Glucose 262 mg/dL (74-106)
[2024-08-16 22:04] LABS: Bedside Glucose 230 mg/dL (74-106)
[2024-08-16] MEDS: Benzonatate 100 MG Capsule PO (23:38)
[2024-08-17] VITALS (20 sets, daily range): BP systolic 97–160; BP diastolic 62–86; PULSE 74–95; RESP 14–222; TEMP 36.8–36.9; O2SAT 89–96; BMI 46.1
[2024-08-17] MEDS: Vancomycin HCl 1,750 MG in 0.9% Normal Saline (500mL Bag) 500 ML 250 MG IV (03:07)
[2024-08-17] MEDS: Ipratropium/Albuterol Sulfate 3 ML AMPUL.NEB INHALATION ×4 (03:25→15:48)
[2024-08-17] MEDS: 0.9% Saline Lock 10 ML Syringe IV ×2 (05:50→09:31)
[2024-08-17] MEDS: Heparin Injection (Vial) 5,000 UNIT/ML VIAL 5000 UNIT SC ×3 (05:51→21:59)
[2024-08-17] MEDS: Piperacil/Tazobactam 3.375 GM in 0.9% Normal Saline (50mL MB+) 50 ML IV (05:51)
[2024-08-17 06:12] LABS: Absolute Lymphocyte Count 0.45 X10^3/uL (0.83-4.51); Absolute Neutrophil Count 7.7 X10^3/uL (2.0-7.7); Basophil# 0.01 X10^3/uL; Basophil% 0.1 % (0-1); Hematocrit 43.3 % (40-54); Hemoglobin 13.9 g/dL (13.0-16.5); Lymphocyte # 0.45 X10^3/ul (0.83-4.51); Lymphocyte % 5.2 % (19-41); Mean Corp Hgb Conc 32.1 g/dL (32-36); Mean Corpuscular Hgb 28.5 pg (27.0-32.0); Mean Corpuscular Volume 88.9 fL (80-94); Mean Platelet Vol. 10.2 fl (6.2-12.0); Monocyte# 0.34 X10^3/uL; Monocyte% 3.9 % (0-10); NRBC Flagged by Analyzer 0 % (0-5); Neutrophil # 7.74 X10^3/uL (2.7-7.7); Neutrophil % 89.6 % (47-70); POSITIVE DIFFERENTIAL YES; Platelet Count 200 K/mm3 (150-450); RBC Distribution Width CV 13.2 % (11.6-14.6); RBC Distribution Width SD 42.7 fl (35.1-43.9); Red Blood Count 4.87 M/mm3 (4.6-6.2); White Blood Count 8.6 K/mm3 (4.4-11.0)
[2024-08-17 06:36] LABS: Anion Gap 5 (5-15); BUN 16 mg/dL (7-18); Calcium,Total 7.4 mg/dL (8.5-10.1); Chloride 102 mmol/L (98-107); Creatinine, Serum 1.14 mg/dL (0.70-1.30); EST Glomerular Filtration Rate 67 mL/min (>60); Est Glom Filt Rate - Afr Amer 82 mL/min (>60); Estimated Creatinine Clearance 94.99 ml/min; Glucose 219 mg/dL (74-106); Sodium Level 136 mmol/L (136-145)
[2024-08-17 08:10] LABS: Bedside Glucose 208 mg/dL (74-106)
[2024-08-17] MEDS: Insulin Lispro 100 UNIT/ML INSULN.PEN SC ×4 (08:20→22:02)
[2024-08-17] MEDS: Aspirin 81 MG TAB.CHEW PO (08:21)
[2024-08-17] MEDS: Ascorbic Acid 500 MG Tablet 1000 MG PO ×2 (08:21→16:28)
[2024-08-17] MEDS: Cholecalciferol (Vit D3) 125 MCG CAPSULE (5,000 UNITS) PO (08:21)
[2024-08-17] MEDS: amLODIPine 10 MG Tablet PO (08:22)
[2024-08-17] MEDS: Oseltamivir Phosphate 75 MG Capsule PO ×2 (08:22→22:02)
[2024-08-17] MEDS: guaiFENesin/D-Methorphan TAB.SR.12H 2 TABLET PO ×2 (08:23→22:00)
[2024-08-17] MEDS: Lactobacillis Acidophilus 1 CAP PO ×3 (08:23→22:00)
--- NOTE | 2024-08-17 08:39 | PN.HOSP_ITS ---
Reason for Visit Reason for Visit: Diagnoses Sepsis, unspecified organism (08/15/24) Morbid (severe) obesity due to excess calories (08/15/24) Acidosis, unspecified (08/15/24) Influenza due to other identified influenza virus with other respiratory manifestations (08/15/24) Pneumonia, unspecified organism (08/15/24) Chronic obstructive pulmonary disease with (acute) exacerbation (08/15/24) Other abnormalities of breathing (08/15/24) Syncope and collapse (08/15/24) Body mass index [BMI] 40.0-44.9, adult (08/15/24) Personal history of nicotine dependence (08/15/24) Objective Data Objective Data Vital Signs: Vital Signs Temp Pulse Resp BP Pulse Ox O2 Del Method O2 Flow Rate 98.2 F 77 20 H 153/86 H 93 High Flow 9 08/17/24 02:00 08/17/24 07:02 08/17/24 07:02 08/17/24 06:00 08/17/24 07:02 08/17/24 07:02 08/17/24 07:02 Oxygen Flow Rate (L/min) 9 Oxygen Delivery Method High Flow Weight: 349 lb 10.45 oz Body Mass Index (BMI) 46.1 Intake & Output: Intake and Output for Last 24 Hours 08/15/24 08/16/24 08/17/24 23:59 23:59 23:59 Intake Total 7398.17 / 7398.17 2185 / 2185 Output Total 1425 / 1425 1500 / 1500 Balance 5973.17 / 5973.17 685 / 685 Lab / Micro Data 08/17/24 06:00 08/17/24 06:00 Labs: Laboratory Results - last 24 hr 08/16/24 11:18: POC Glucose 253 H 08/16/24 15:53: POC Glucose 262 H 08/16/24 21:29: POC Glucose 230 H 08/17/24 06:00: WBC 8.6, RBC 4.87, Hgb 13.9, Hct 43.3, MCV 88.9, MCH 28.5, MCHC 32.1, RDW Std Deviation 42.7, RDW Coeff of Hilda 13.2, Plt Count 200, MPV 10.2, I mmature Gran % (Auto) 1.200 H, Neut % (Auto) 89.6 H, Lymph % (Auto) 5.2 L, [place] % (Auto) 3.9, Eos % (Auto) 0.0, Baso % (Auto) 0.1, Absolute Neuts (auto) 7.7, A bsolute Lymphs (auto) 0.45 L, Nucleated RBC % 0, Sodium 136, Potassium 4.0, Chloride 102, Carbon Dioxide 29.0, Anion Gap 5, BUN 16, Creatinine 1.14, Estim Creat Clear Calc 94.99, Est GFR (MDRD) Af Amer 82, Est GFR (MDRD) Non-Af 67, BUN/Creatinine Ratio 14.0, Glucose 219 H, Calcium 7.4 L 08/17/24 07:52: POC Glucose 208 H Micro: Microbiology 08/16/24 07:40 Mucosa - Nasopharyngeal Coronavirus COVID-19 PCR - Final 08/16/24 07:40 Mucosa - Nasopharyngeal Respiratory Panel (PCR) - Final Influenza A (Subtype H1) 08/16/24 02:00 Urine, Random Legionella Antigen - Final 08/16/24 02:00 Urine, Random Streptococcus pneumoniae Antigen (M - Final Rhythm Strip Rhythm Strip: Sinus Rhythm Rate: 100 Ectopy: None Physical Exam Narrative Patient is stated he has been short of breath for 2 to 3 weeks but for last 3 days shortness of breath got worse along with a cough. Diagnosed with influenza A in urgent care. At home he had syncope and therefore admitted. He could not tolerate Airvo though recommended. On high flow 9 L of oxygen Physical exam General: Alert, Oriented x3, Cooperative HEENT: Atraumatic, PERRLA, EOMI, Normocephalic Oral: No Gingival or Mucosal Lesions/ Ulcerations Neck: Supple, No JVD, Negative Carotid Bruits Chest wall/Lungs: Air entry diminished in bilateral lung bases. Dyspnea better. Bilateral coarse rhonchi and wheezing Cardiovascular: Regular rate, Regular Rhythm, Normal S1, Normal S2, systolic murmur. Abdomen: Bowel Sounds Present, Soft, Non Tender, Non-Distended : No dysuria. No renal angle tenderness. No suprapubic tenderness. Extremities: Generalized edema of lower and upper extremities, Capillary Refill Less than 3 Seconds Skin: No rashes, No breakdown Musculoskeletal: No Tenderness to Palpation of Joints or Extremities Neurological: Cranial nerves II-XII grossly intact, DTR 2+/4. No acute focal neurological deficit. Psych/Mental Status: Normal Affect, Appropriate. Assessment & Plan Assessment/Plan (1) Sepsis: QUALIFIERS: Sepsis acute organ dysfunction status: without acute organ dysfunction Sepsis type: sepsis due to unspecified organism Qualified Code(s): A41.9 - Sepsis, unspecified organism (2) Lactic acidosis: (3) Influenza A: (4) COPD exacerbation: (5) Pneumonia: QUALIFIERS: Laterality: left Lung location: lower lobe of lung P neumonia type: due to unspecified organism Qualified Code(s): J18.9 - Pneumonia, unspecified organism (6) Respiratory insufficiency: (7) Syncope: QUALIFIERS: Syncope type: unspecified Qualified Code(s): R55 - Syncope and collapse (8) Former smoker: (9) Morbid obesity with BMI of 40.0-44.9, adult: PLAN: Plan 68-year-old gentleman was brought to ED after an episode of syncope, diagnosed with influenza A in urgent care. After he went home, he was seen and passed out. EMS found pulse oximetry 79% on room air. Patient has mild productive cough, denies any chest pain, nausea vomiting or abdominal pain. Symptoms started 3 days ago. Fever Tmax 100.2 Fahrenheit 1. Influenza A with suspicion of superimposed bacterial infection suggestive of sepsis: Patient admitted in ICU with suspicion of sepsis. The patient presented with sepsis with clinical indicators of tachypnea, tachycardia, leukocytosis due to pneumonia as described below with acute sepsis-related organ dysfunction as evidenced by acute hypoxic respiratory failure and lactic acidosis Patient did not had hypotension but lactic acidosis 2.5. CTAP does not show pulmonary embolism but airspace opacities in the lingula and left lower lobe and mild ground-glass attenuation in the right middle lobe and lower lobe likely on an infectious inflammatory basis. Patient was started on Tamiflu. Empirically started on IV vancomycin and Zosyn. 2/3: Urinary antigens are negative. ID consulted to titrate down the antibiotics. MRSA nasal screen ordered. Patient is still on 9 L of oxygen high flow 2. AE COPD with history of former tobacco use, quit 2012: Patient is being managed on scheduled bronchodilator, IV Solu-Medrol, Mucinex, incentive spirometry and Pep. 2/3: Patient has generalized edema of upper and lower extremity. He got about 5 L of IV fluid. Furosemide 40 mg IV 1 dose ordered. Amlodipine discontinued 3. Syncope - Volume resuscitate with NS IVF. Serialize troponin. Check echocardiogram to evaluate LVEF. Check carotid Doppler to evaluate for stenosis. 5. Morbid Obesity; with BMI of 44.2 this admission adding to the burden of disease outlined from #1 - #4 - Weight loss will be recommended. Check TSH. This complicates his case and may hamper recovery. 6. DM-2; of unknown control on metformin and glipizide with Hyperglycemia of 195 mg/dL and HgbA1c of 6.7% present on admission - ADA diet. FSBS q. AC/HS plus SSI. Hold oral hypoglycemic agents during hospitalization. Metformin should additionally be held ~72 hours after IV contrast given for CTA of chest. 7. Essential Hypertension; on amlodipine, losartan and hydrochlorothiazide - Continue amlodipine but hold losartan and hydrochlorothiazide with elevated serum creatinine of 1.39 mg/dL present on admission. Give hydralazine IV prn for systolic blood pressure > 160 mmHg. 8. Hyperlipidemia; on atorvastatin - Hold statin until patient's condition improves. 17. DVT prophylaxis - Heparin 5,000U sq TID plus SCD's. Charges/Coding Visit Charges Inpatient E&M: 53886 [facility] Hosp L3
--- NOTE | 2024-08-17 08:40 | RAD_ITS ---
EXAM: XR Chest, 1 View CLINICAL INDICATION: TECHNIQUE: Frontal view of the chest. COMPARISON: No relevant prior studies available. FINDINGS: LUNGS AND PLEURAL SPACES: See below. HEART: Cardiomegaly with pulmonary congestion and edema. Superimposed pneumonia cannot be excluded. MEDIASTINUM: Unremarkable. Normal mediastinal contour. BONES/JOINTS: Unremarkable. No acute fracture. RAD/Chest 1 View (Portable) IMPRESSION: Cardiomegaly with pulmonary congestion and edema. Superimposed pneumonia cannot be excluded. Reading [facility]
[2024-08-17] MEDS: Furosemide 40 MG/4 ML Vial IV (09:31)
[2024-08-17] MEDS: Mag Hydrox/Al Hydrox/Simeth 30 ML UDC 15 ML PO (10:15)
[2024-08-17] MEDS: Pantoprazole Sodium 40 MG Tablet PO (10:15)
[2024-08-17] MEDS: Magnesium Sulfate 2 GM in Dextrose 5%-Water (100mL Bag) 100 ML IV (10:15)
[2024-08-17 10:16] LABS: Phosphorus 3.3 mg/dL (2.5-4.9)
--- NOTE | 2024-08-17 11:05 | CASEMGMT ---
AYALA VALENZUELA Assessment Face to Face with patient for initial transition planning/care coordination assessment. AYALA VALENZUELA introduced self and role at [facility], pt voices understanding. Pt is A&Ox4 and is resting comfortably in bed and is calm. Care providers, pharmacy, and demographics verified. Admitting dx: Influenza A with Acute Respiratory Insufficiency LACE Strata: 2 PCP: Rick Henderson Specialists: Sarah FLAHERTY Preferred Pharmacy: [facility] Insurance: [employer] A/[place], [employer] Prescription Benefit: States yes LNOK: Susie Pickenss (W) Living Arrangements: Pt lives with his in a single story home with 3 steps to enter ADLs/IADLs: Reports independent at baseline. Transportation: Self, . Denies concerns DME: Functioning BGM with sufficient supplies. BP Machine. Nebulizer through [employer]. Pt denies home oxygen or PAP use. Pt may qualify for home oxygen at the time of DC. This RN NICOLAS reviewed a local list of in-network DME companies with the pt. Pt states that he does not prefer [employer] due to issues with billing in the past but states that he will talk to his about this. Physical list provided to the pt for review. CM to follow. HHC/SNF: Denies history Pt?s goal: Return home Plan: Home, follow for oxygen needs. At this time, the pt denies the need for HH, SNF, OP Tx, or CCN. Pt states that his is a nurse and that he feels safe returning home with her at the time of DC. CM to follow pt progression in the hospital with therapy as well as oxygen needs prior to DC. Pt denies further concerns at this time. Alexus Christian RN, CM
[2024-08-17 11:52] LABS: Bedside Glucose 236 mg/dL (74-106)
[2024-08-17] MEDS: Vancomycin Trough/Random Due 1 LAB MC (12:52)
[2024-08-17 13:00] LABS: Magnesium 2.6 mg/dL (1.6-2.6); Phosphorus 2.1 mg/dL (2.5-4.9)
[2024-08-17 13:02] LABS: Vancomycin, Trough Level 15.2 ug/mL (5.0-15.0)
--- NOTE | 2024-08-17 13:12 | PCM.CONS.GEN ---
Assessment & Plan Assessment/Plan (1) COPD exacerbation: (2) Influenza A: PLAN: No clear evidence of bacterial superinfection. Will cont tamiflu, change abx to short course azithro. Will follow, thank you, d/w Dr. Perez HPI Consult Data Date of Consult: 08/17/24 HPI Narrative Reason for Consultation: flu HPI Narrative: MARY HOLDEN, is a 68 M with h/o obesity, htn, copd, presented 08/15 with two days progressive fatigue, chills, aches, cough. Dx with flu at urgent care, sent home. Sx worsened, came to ED, admitted on tamiflu, vanc, zosyn. Feeling a little better today. at bedside provided additional history. Full ROS performed and neg except as noted above. [facility] Medical History Wears glasses High cholesterol Dietary restriction Seasonal allergies Heartburn Former smoker History of stress test Diabetes Hemorrhoids HTN (hypertension) Home Medications ?Medication ?Instructions ?Recorded ?Last Taken ?Type amlodipine 10 mg tablet 10 mg PO DAILY 04/23/13 07/11/23 History hydrochlorothiazide 25 mg tablet 25 mg PO DAILY 04/23/13 07/10/23 History losartan 50 mg tablet 100 mg PO DAILY 04/23/13 07/11/23 History omega-3 fatty acids 300 mg capsule 300 mg PO DAILY 04/23/13 07/04/23 History aspirin 81 mg tablet,delayed 81 mg PO DAILY@0800 11/09/14 07/04/23 History release multivitamin with folic acid 400 1 tab PO DAILY 11/09/14 07/09/23 History mcg tablet atorvastatin 10 mg tablet (Lipitor) 20 mg PO DAILY 08/11/18 07/08/23 History metformin 500 mg tablet,extended 1,000 mg PO BID 06/29/19 07/09/23 History release 24 hr glimepiride 4 mg tablet 4 mg PO BID 07/05/23 07/08/23 History Allergy/AdvReac Type Severity Reaction Status Date / Time dapagliflozin (From [facility]) Allergy Intermediate Chest Verified 08/15/24 21:24 tightness lisinopril AdvReac Other Verified 08/15/24 21:24 Family History Father Cancer Mother Diabetes Surgical History History of carpal tunnel release of both wrists History of colonoscopy History of cholecystectomy H/O hernia repair History of vein stripping Social History household members: spouse housing: house current occupational status: retired Smoking Status: Former smoker alcohol intake: never Physical Exam Const alert, oriented x3 and no apparent distress General Appearance: cooperative HEENT normocephalic and head/scalp atraumatic Eyes PERRL and EOMs intact bilaterally Neck supple and No nodes Resp Auscultation: wheezes and diminished lung sounds Cardio regular rate and regular rhythm GI soft to palpation, non-tender and non-distended Extremity General Extremity: Negative for edema Skin no rashes or lesions noted Neuro CN's II-XII intact bilaterally Lab / Micro Data Attestation: I reviewed the patient's lab results. 08/17/24 06:00 08/17/24 06:00 Labs: Laboratory Results - last 24 hr 08/16/24 15:53: POC Glucose 262 H 08/16/24 21:29: POC Glucose 230 H 08/17/24 06:00: WBC 8.6, RBC 4.87, Hgb 13.9, Hct 43.3, MCV 88.9, MCH 28.5, MCHC 32.1, RDW Std Deviation 42.7, RDW Coeff of Hilda 13.2, Plt Count 200, MPV 10.2, Immature Gran % (Auto) 1.200 H, Neut % (Auto) 89.6 H, Lymph % (Auto) 5.2 L, [place] % (Auto) 3.9, Eos % (Auto) 0.0, Baso % (Auto) 0.1, Absolute Neuts (auto) 7.7, Absolute Lymphs (auto) 0.45 L, Nucleated RBC % 0, Sodium 136, Potassium 4.0, Chloride 102, Carbon Dioxide 29.0, Anion Gap 5, BUN 16, Creatinine 1.14, Estim Creat Clear Calc 94.99, Est GFR (MDRD) Af Amer 82, Est GFR (MDRD) Non-Af 67, BUN/Creatinine Ratio 14.0, Glucose 219 H, Calcium 7.4 L, Phosphorus 3.3 08/17/24 07:52: POC Glucose 208 H 08/17/24 11:28: POC Glucose 236 H 08/17/24 12:40: Phosphorus 2.1 L, Magnesium 2.6, Vancomycin Trough 15.2 H Micro: Microbiology 08/16/24 07:40 Mucosa - Nasopharyngeal Coronavirus COVID-19 PCR - Final 08/16/24 07:40 Mucosa - Nasopharyngeal Respiratory Panel (PCR) - Final Influenza A (Subtype H1) Rhythm Strip Rhythm Strip: Sinus Rhythm Rate: 100 Ectopy: None Imaging Radiology Impression Carotid Duplex 08/15/24 23:32 Interpretation Summary Mild (<50%) stenosis right extracranial internal carotid. Moderate (50-69%) stenosis left extracranial internal carotid. Patent and antegrade vertebrals bilaterally. Ordering Physician: Tanner Bah Referring Physician: Ean Sow Performed By: Tracy Esparza RVT Echocardiogram 08/15/24 23:32 Interpretation Summary Normal LV size. Left ventricular systolic function is normal. The left ventricular ejection fraction is 65 %. Mild concentric left ventricular hypertrophy. Contrast injection was performed. Ordering Physician: Tanner Bah Referring Physician: EAN SOW Performed By: Yara Shine RCS Chest X-Ray 08/17/24 08:40 IMPRESSION: Cardiomegaly with pulmonary congestion and edema. Superimposed pneumonia cannot be excluded. Reading Location[facility]
[2024-08-17] MEDS: Azithromycin 250 MG Tablet 500 MG PO (14:18)
--- NOTE | 2024-08-17 14:27 | EX.PCM.CONCC ---
Assessment & Plan Assessment/Plan (1) Influenza A: PLAN: Plan RECOMMENDATIONS: 1. Supplemental oxygen to maintain saturations at or above 90%. 2. Start empiric BiPAP therapy with naps and nightly. 3. Antimicrobials per ID recommendations. 4. Continue appropriate DVT prophylaxis. 5. Gentle diuresis as tolerated by hemodynamics and renal function. 6. Encourage incentive spirometer use and mobilize patient as tolerated. IMPRESSIONS: 1. Acute respiratory failure with hypoxemia Most likely secondary to presenting influenza A infection. The patient reported that he has never been diagnosed with COPD, despite documentation to the contrary. Therefore, there is unclear benefit from the use of scheduled bronchodilators. However, it is reasonable to continue Tamiflu along with a short course of antimicrobials, under the discretion of infectious diseases, to cover for secondary bacterial pneumonia. Recommend continuance of diuretics as tolerated by hemodynamics and renal function. 2. History of obstructive sleep apnea The patient reported noncompliance with PAP therapy. However, he is agreeable to a trial of BiPAP therapy with naps and nightly, while admitted to the hospital. Orders have been placed accordingly. 3. History of hypertension/morbid obesity/diabetes mellitus/hyperlipidemia Complicates care, management, recovery and prognosis. Continue home medications as indicated. This note was generated with [employer] dictation software. It may contain incorrect words, spelling, and punctuation that were not noted in checking the note before signing. HPI Consult Data Date of Consult: 08/18/24 HPI Narrative Reason for Consultation: Respiratory failure with hypoxemia HPI Narrative: The patient is a 68-year-old male, with a history as outlined below, who presented to the emergency department on August 16 with complaints of shortness of breath and syncope. The patient has a known history of hypertension/hyperlipidemia/prior tobacco dependency and diabetes mellitus. He has never been diagnosed with COPD or asthma. The patient does not utilize supplemental oxygen at his baseline. He does report noncompliance with nocturnal PAP therapy. 2 days prior to his hospital admission, the patient tested positive for influenza A through a local urgent care clinic, but was not placed on any therapy. On presentation to the emergency department, the patient was documented to be febrile, tachycardic and tachypneic, but was otherwise hemodynamically stable. Laboratory evaluation revealed a normal white blood cell count. Chemistry profile was notable for a creatinine of 1.39 with a lactate of 2.5. TSH was within normal limits. Influenza A PCR was +August 16. CTA chest showed no definitive evidence of proximal PE, but did demonstrate mild groundglass airspace opacities. The patient was placed on Tamiflu, antimicrobials and steroids. He was subsequently admitted to the hospital for further management. [facility] Medical History Wears glasses High cholesterol Dietary restriction Seasonal allergies Heartburn Former smoker History of stress test Diabetes Hemorrhoids HTN (hypertension) Home Medications ?Medication ?Instructions ?Recorded ?Last Taken ?Type amlodipine 10 mg tablet 10 mg PO DAILY 04/23/13 07/11/23 History hydrochlorothiazide 25 mg tablet 25 mg PO DAILY 04/23/13 07/10/23 History losartan 50 mg tablet 100 mg PO DAILY 04/23/13 07/11/23 History omega-3 fatty acids 300 mg capsule 300 mg PO DAILY 04/23/13 07/04/23 History aspirin 81 mg tablet,delayed 81 mg PO DAILY@0800 11/09/14 07/04/23 History release multivitamin with folic acid 400 1 tab PO DAILY 11/09/14 07/09/23 History mcg tablet atorvastatin 10 mg tablet (Lipitor) 20 mg PO DAILY 08/11/18 07/08/23 History metformin 500 mg tablet,extended 1,000 mg PO BID 06/29/19 07/09/23 History release 24 hr glimepiride 4 mg tablet 4 mg PO BID 07/05/23 07/08/23 History Allergy/AdvReac Type Severity Reaction Status Date / Time dapagliflozin (From [facility]) Allergy Intermediate Chest Verified 08/15/24 21:24 tightness lisinopril AdvReac Other Verified 08/15/24 21:24 Family History Father Cancer Mother Diabetes Surgical History History of carpal tunnel release of both wrists History of colonoscopy History of cholecystectomy H/O hernia repair History of vein stripping Social History household members: spouse housing: house current occupational status: retired Smoking Status: Former smoker alcohol intake: never ROS ROS Narrative 10 systems were reviewed with pertinent positives as noted in the HPI above. Physical Exam Const alert, oriented x3 and no apparent distress Constitutional Narrative: Morbidly obese. is present at the bedside. General Appearance: cooperative HEENT normocephalic and head/scalp atraumatic Eyes PERRL, EOMs intact bilaterally and conjunctivae normal Neck supple General: trachea midline Chest inspection of chest normal Resp normal respiratory effort Auscultation: diminished lung sounds; Negative for rales, rhonchi or wheezes Cardio regular rate and regular rhythm GI normal to inspection, nondistended, normoactive bowel sounds Extremity General Extremity: edema; Negative for clubbing Skin General Skin Exam: venous stasis and dermatitis Neuro CN's II-XII intact bilaterally, moves all extremities and no focal motor deficits Psych cooperative and affect normal Lab / Micro Data 08/17/24 06:00 08/17/24 06:00 Labs: Laboratory Results - last 24 hr 08/16/24 15:53: POC Glucose 262 H 08/16/24 21:29: POC Glucose 230 H 08/17/24 06:00: WBC 8.6, RBC 4.87, Hgb 13.9, Hct 43.3, MCV 88.9, MCH 28.5, MCHC 32.1, RDW Std Deviation 42.7, RDW Coeff of Hilda 13.2, Plt Count 200, MPV 10.2, Immature Gran % (Auto) 1.200 H, Neut % (Auto) 89.6 H, Lymph % (Auto) 5.2 L, Sharp % (Auto) 3.9, Eos % (Auto) 0.0, Baso % (Auto) 0.1, Absolute Neuts (auto) 7.7, Absolute Lymphs (auto) 0.45 L, Nucleated RBC % 0, Sodium 136, Potassium 4.0, Chloride 102, Carbon Dioxide 29.0, Anion Gap 5, BUN 16, Creatinine 1.14, Estim Creat Clear Calc 94.99, Est GFR (MDRD) Af Amer 82, Est GFR (MDRD) Non-Af 67, BUN/Creatinine Ratio 14.0, Glucose 219 H, Calcium 7.4 L, Phosphorus 3.3 08/17/24 07:52: POC Glucose 208 H 08/17/24 11:28: POC Glucose 236 H 08/17/24 12:40: Phosphorus 2.1 L, Magnesium 2.6, Vancomycin Trough 15.2 H Micro: Microbiology 08/16/24 07:40 Mucosa - Nasopharyngeal Coronavirus COVID-19 PCR - Final 08/16/24 07:40 Mucosa - Nasopharyngeal Respiratory Panel (PCR) - Final Influenza A (Subtype H1) Rhythm Strip Rhythm Strip: Sinus Rhythm Rate: 100 Ectopy: None Imaging Radiology Impression Carotid Duplex 08/15/24 23:32 Interpretation Summary Mild (<50%) stenosis right extracranial internal carotid. Moderate (50-69%) stenosis left extracranial internal carotid. Patent and antegrade vertebrals bilaterally. Ordering Physician: Tanner Bah Referring Physician: Ean Sow Performed By: Tracy Esparza RVT Echocardiogram 08/15/24 23:32 Interpretation Summary Normal LV size. Left ventricular systolic function is normal. The left ventricular ejection fraction is 65 %. Mild concentric left ventricular hypertrophy. Contrast injection was performed. Ordering Physician: Tanner Bah Referring Physician: EAN SOW Performed By: Yara Shine RCS Chest X-Ray 08/17/24 08:40 IMPRESSION: Cardiomegaly with pulmonary congestion and edema. Superimposed pneumonia cannot be excluded. Reading Location: [facility] Charges/Coding Visit Charges Inpatient E&M: 00071 Init Hosp L3
[2024-08-17 16:49] LABS: Bedside Glucose 220 mg/dL (74-106)
[2024-08-17 22:23] LABS: Bedside Glucose 267 mg/dL (74-106)
[2024-08-18] VITALS (8 sets, daily range): BP systolic 140–167; BP diastolic 67–85; PULSE 67–78; RESP 16–20; TEMP 36.6–36.9; O2SAT 94–98
--- NOTE | 2024-08-18 01:05 | CPS ---
This [employer] started Bipap on patient per Dr. Uribe order, patient refused wearing Bipap after trialing it on.
[2024-08-18] MEDS: Heparin Injection (Vial) 5,000 UNIT/ML VIAL 5000 UNIT SC ×3 (05:13→22:09)
--- NOTE | 2024-08-18 07:38 | PN.CC_ITS ---
Assessment & Plan Assessment/Plan (1) Influenza A: PLAN: Plan RECOMMENDATIONS: 1. Supplemental oxygen to maintain saturations at or above 90%. 2. Recommend empiric BiPAP therapy with naps and nightly. 3. Antimicrobials per ID recommendations. 4. Continue appropriate DVT prophylaxis. 5. Continue gentle diuresis as tolerated by hemodynamics and renal function. 6. Encourage incentive spirometer use and mobilize patient as tolerated. IMPRESSIONS: 1. Acute respiratory failure with hypoxemia Most likely secondary to presenting influenza A infection. The patient reported that he has never been diagnosed with COPD, despite documentation to the contrary. Therefore, there is unclear benefit from the use of scheduled bronchodilators. However, it is reasonable to continue Tamiflu along with a short course of antimicrobials, under the discretion of infectious diseases, to cover for secondary bacterial pneumonia. Recommend continuance of diuretics as tolerated by hemodynamics and renal function. 2. History of obstructive sleep apnea The patient reported noncompliance with PAP therapy. 3. History of hypertension/morbid obesity/diabetes mellitus/hyperlipidemia Complicates care, management, recovery and prognosis. Continue home medications as indicated. This note was generated with [employer] dictation software. It may contain incorrect words, spelling, and punctuation that were not noted in checking the note before signing. Subjective Subjective The patient was seen and examined at the bedside this morning. Events from the last 24 hours have been reviewed. The patient is currently afebrile, hemodynamically stable and maintaining appropriate oxygen saturations on 6 L/min via nasal cannula. The patient reported that he was not able to tolerate BiPAP therapy last night. The patient remains on twice daily scheduled Lasix. Objective Data Objective Data The patient's most recent lab work, culture data and imaging studies have all been personally reviewed. Vital Signs: Vital Signs Temp Pulse Resp BP Pulse Ox O2 Del Method O2 Flow Rate 98 F 78 18 161/81 H 98 High Flow 8 08/18/24 04:28 08/18/24 04:28 08/18/24 04:28 08/18/24 04:28 08/18/24 04:28 08/18/24 04:28 08/18/24 04:28 FiO2 50 08/17/24 23:56 Oxygen Flow Rate (L/min) 8 Oxygen Delivery Method High Flow Weight: 349 lb 10.45 oz Body Mass Index (BMI) 46.1 Intake & Output: Intake and Output for Last 24 Hours 08/16/24 08/17/24 08/18/24 23:59 23:59 23:59 Intake Total 7398.17 / 7398.17 3659 / 3959 600 / 600 Output Total 1425 / 1425 5600 / 6000 400 / 400 Balance 5973.17 / 5973.17 -1941 / -2041 200 / 200 Lab / Micro Data Attestation: I reviewed the patient's lab results. 08/18/24 07:48 08/18/24 07:48 Labs: Laboratory Results - last 24 hr 08/17/24 06:00: Phosphorus 3.3 08/17/24 07:52: POC Glucose 208 H 08/17/24 11:28: POC Glucose 236 H 08/17/24 12:40: Phosphorus 2.1 L, Magnesium 2.6, Vancomycin Trough 15.2 H 08/17/24 16:22: POC Glucose 220 H 08/17/24 21:59: POC Glucose 267 H Micro: Microbiology 08/17/24 11:20 Nasal Secretion MRSA (PCR) - Final 08/16/24 17:40 Sputum, Expectorated/Coughed Gram Stain - Final 08/16/24 07:40 Mucosa - Nasopharyngeal Coronavirus COVID-19 PCR - Final 08/16/24 07:40 Mucosa - Nasopharyngeal Respiratory Panel (PCR) - Final Influenza A (Subtype H1) 08/16/24 02:00 Urine, Random Legionella Antigen - Final 08/16/24 02:00 Urine, Random Streptococcus pneumoniae Antigen (M - Final Radiography Diagnostic Testing: Radiology Impression Carotid Duplex 08/15/24 23:32 Interpretation Summary Mild (<50%) stenosis right extracranial internal carotid. Moderate (50-69%) stenosis left extracranial internal carotid. Patent and antegrade vertebrals bilaterally. Ordering Physician: Tanner Bah Referring Physician: Ean Sow Performed By: Tracy Esparza RVT Echocardiogram 08/15/24 23:32 Interpretation Summary Normal LV size. Left ventricular systolic function is normal. The left ventricular ejection fraction is 65 %. Mild concentric left ventricular hypertrophy. Contrast injection was performed. Ordering Physician: Tanner Bah Referring Physician: EAN SOW Performed By: Yara Shine RCS Chest X-Ray 08/17/24 08:40 IMPRESSION: Cardiomegaly with pulmonary congestion and edema. Superimposed pneumonia cannot be excluded. Reading Location: [facility] Rhythm Strip Rhythm Strip: Sinus Rhythm Rate: 100 Ectopy: None Physical Exam Const alert, oriented x3 and no apparent distress Constitutional Narrative: Morbidly obese. is present at the bedside. General Appearance: cooperative HEENT normocephalic and head/scalp atraumatic Eyes PERRL, EOMs intact bilaterally and conjunctivae normal Neck supple General: trachea midline Chest inspection of chest normal Resp normal respiratory effort Auscultation: diminished lung sounds; Negative for rales, rhonchi or wheezes Cardio regular rate and regular rhythm GI normal to inspection, nondistended, normoactive bowel sounds Extremity General Extremity: edema; Negative for clubbing Skin General Skin Exam: venous stasis and dermatitis Neuro CN's II-XII intact bilaterally, moves all extremities and no focal motor deficits Psych cooperative and affect normal Charges/Coding Visit Charges Inpatient E&M: 52334 Subs Hosp L2
[2024-08-18] MEDS: Ascorbic Acid 500 MG Tablet 1000 MG PO ×2 (08:03→17:08)
[2024-08-18] MEDS: Aspirin 81 MG TAB.CHEW PO (08:03)
[2024-08-18 08:24] LABS: Bedside Glucose 122 mg/dL (74-106)
[2024-08-18 08:26] LABS: Absolute Lymphocyte Count 1.41 X10^3/uL (0.83-4.51); Absolute Neutrophil Count 9.1 X10^3/uL (2.0-7.7); Basophil# 0.02 X10^3/uL; Basophil% 0.2 % (0-1); Hematocrit 44.9 % (40-54); Hemoglobin 14.1 g/dL (13.0-16.5); Lymphocyte # 1.41 X10^3/ul (0.83-4.51); Lymphocyte % 12.8 % (19-41); Mean Corp Hgb Conc 31.4 g/dL (32-36); Mean Corpuscular Hgb 27.8 pg (27.0-32.0); Mean Corpuscular Volume 88.4 fL (80-94); Mean Platelet Vol. 10.5 fl (6.2-12.0); Monocyte# 0.45 X10^3/uL; Monocyte% 4.1 % (0-10); NRBC Flagged by Analyzer 0 % (0-5); Neutrophil # 9.09 X10^3/uL (2.7-7.7); Neutrophil % 82.3 % (47-70); Platelet Count 220 K/mm3 (150-450); RBC Distribution Width CV 13.2 % (11.6-14.6); RBC Distribution Width SD 42.3 fl (35.1-43.9); Red Blood Count 5.08 M/mm3 (4.6-6.2)
--- NOTE | 2024-08-18 08:33 | PN.HOSP_ITS ---
Reason for Visit Reason for Visit: Diagnoses Sepsis, unspecified organism (08/15/24) Morbid (severe) obesity due to excess calories (08/15/24) Acidosis, unspecified (08/15/24) Influenza due to other identified influenza virus with other respiratory manifestations (08/15/24) Pneumonia, unspecified organism (08/15/24) Chronic obstructive pulmonary disease with (acute) exacerbation (08/15/24) Other abnormalities of breathing (08/15/24) Syncope and collapse (08/15/24) Body mass index [BMI] 40.0-44.9, adult (08/15/24) Personal history of nicotine dependence (08/15/24) Objective Data Objective Data Vital Signs: Vital Signs Temp Pulse Resp BP Pulse Ox O2 Del Method O2 Flow Rate 98 F 78 18 161/81 H 97 High Flow 7 08/18/24 04:28 08/18/24 04:28 08/18/24 04:28 08/18/24 04:28 08/18/24 07:38 08/18/24 07:38 08/18/24 07:38 FiO2 50 08/17/24 23:56 Oxygen Flow Rate (L/min) 7 Oxygen Delivery Method High Flow Weight: 349 lb 10.45 oz Body Mass Index (BMI) 46.1 Intake & Output: Intake and Output for Last 24 Hours 08/16/24 08/17/24 08/18/24 23:59 23:59 23:59 Intake Total 7398.17 / 7398.17 3659 / 3959 600 / 600 Output Total 1425 / 1425 5600 / 6000 400 / 400 Balance 5973.17 / 5973.17 -1941 / -2041 200 / 200 Lab / Micro Data 08/18/24 07:48 08/17/24 06:00 Labs: Laboratory Results - last 24 hr 08/17/24 06:00: Phosphorus 3.3 08/17/24 11:28: POC Glucose 236 H 08/17/24 12:40: Phosphorus 2.1 L, Magnesium 2.6, Vancomycin Trough 15.2 H 08/17/24 16:22: POC Glucose 220 H 08/17/24 21:59: POC Glucose 267 H 08/18/24 07:48: WBC 11.0, RBC 5.08, Hgb 14.1, Hct 44.9, MCV 88.4, MCH 27.8, MCHC 31.4 L, RDW Std Deviation 42.3, RDW Coeff of Hilda 13.2, Plt Count 220, MPV 10.5, Immature Gran % (Auto) 0.600, Neut % (Auto) 82.3 H, Lymph % (Auto) 12.8 L, [place] % (Auto) 4.1, Eos % (Auto) 0.0, Baso % (Auto) 0.2, Absolute Neuts (auto) 9.1 H, Absolute Lymphs (auto) 1.41, Nucleated RBC % 0 08/18/24 08:00: POC Glucose 122 H Micro: Microbiology 08/17/24 11:20 Nasal Secretion MRSA (PCR) - Final 08/16/24 17:40 Sputum, Expectorated/Coughed Gram Stain - Final 08/16/24 07:40 Mucosa - Nasopharyngeal Coronavirus COVID-19 PCR - Final 08/16/24 07:40 Mucosa - Nasopharyngeal Respiratory Panel (PCR) - Final Influenza A (Subtype H1) 08/16/24 02:00 Urine, Random Legionella Antigen - Final 08/16/24 02:00 Urine, Random Streptococcus pneumoniae Antigen (M - Final Radiography Diagnostic Testing: Radiology Impression Carotid Duplex 08/15/24 23:32 Interpretation Summary Mild (<50%) stenosis right extracranial internal carotid. Moderate (50-69%) stenosis left extracranial internal carotid. Patent and antegrade vertebrals bilaterally. Ordering Physician: Tanner Bah Referring Physician: Ean Sow Performed By: Tracy Esparza RVT Echocardiogram 08/15/24 23:32 Interpretation Summary Normal LV size. Left ventricular systolic function is normal. The left ventricular ejection fraction is 65 %. Mild concentric left ventricular hypertrophy. Contrast injection was performed. Ordering Physician: Tanner Bah Referring Physician: EAN SOW Performed By: Yara Shine RCS Chest X-Ray 08/17/24 08:40 IMPRESSION: Cardiomegaly with pulmonary congestion and edema. Superimposed pneumonia cannot be excluded. Reading Location: [facility] Rhythm Strip Rhythm Strip: Sinus Rhythm Rate: 100 Ectopy: None Physical Exam Narrative Seen and examined. States his shortness of breath is better. Still upper and lower extremity edema. On high flow oxygen 6 to 7 L/min. No fever Physical exam General: Alert, Oriented x3, Cooperative HEENT: Atraumatic, PERRLA, EOMI, Normocephalic Oral: No Gingival or Mucosal Lesions/ Ulcerations Neck: Supple, No JVD, Negative Carotid Bruits Chest wall/Lungs: Air entry diminished in bilateral lung bases. Dyspnea better. Bilateral coarse rhonchi and wheezing Cardiovascular: Regular rate, Regular Rhythm, Normal S1, Normal S2, systolic murmur. Abdomen: Bowel Sounds Present, Soft, Non Tender, Non-Distended : No dysuria. No renal angle tenderness. No suprapubic tenderness. Extremities: Generalized edema of lower and upper extremities, Capillary Refill Less than 3 Seconds Skin: No rashes, No breakdown Musculoskeletal: No Tenderness to Palpation of Joints or Extremities Neurological: Cranial nerves II-XII grossly intact, DTR 2+/4. No acute focal neurological deficit. Psych/Mental Status: Normal Affect, Appropriate. Assessment & Plan Assessment/Plan (1) Sepsis: QUALIFIERS: Sepsis type: sepsis due to unspecified organism S epsis acute organ dysfunction status: without acute organ dysfunction Qualified Code(s): A41.9 - Sepsis, unspecified organism (2) Lactic acidosis: (3) Influenza A: (4) COPD exacerbation: (5) Pneumonia: QUALIFIERS: Pneumonia type: due to unspecified organism L aterality: left Lung location: lower lobe of lung Qualified Code(s): J18.9 - Pneumonia, unspecified organism (6) Respiratory insufficiency: (7) Syncope: QUALIFIERS: Syncope type: unspecified Qualified Code(s): R55 - Syncope and collapse (8) Former smoker: (9) Morbid obesity with BMI of 40.0-44.9, adult: PLAN: Plan 68-year-old gentleman was brought to ED after an episode of syncope, diagnosed with influenza A in urgent care. After he went home, he was seen and passed out. EMS found pulse oximetry 79% on room air. Patient has mild productive cough, denies any chest pain, nausea vomiting or abdominal pain. Symptoms started 3 days ago. Fever Tmax 100.2 Fahrenheit 1. Influenza A with suspicion of superimposed bacterial infection suggestive of sepsis: Patient admitted in ICU with suspicion of sepsis. The patient presented with sepsis with clinical indicators of tachypnea, tachycardia, leukocytosis due to pneumonia as described below with acute sepsis-related organ dysfunction as evidenced by acute hypoxic respiratory failure and lactic acidosis Patient did not had hypotension but lactic acidosis 2.5. CTAP does not show pulmonary embolism but airspace opacities in the lingula and left lower lobe and mild ground-glass attenuation in the right middle lobe and lower lobe likely on an infectious inflammatory basis. Patient was started on Tamiflu. Empirically started on IV vancomycin and Zosyn. 2/3: Urinary antigens are negative. ID consulted to titrate down the antibiotics. MRSA nasal screen ordered. Patient is still on 9 L of oxygen high flow 2/4: Discussed with ID yesterday. No clear evidence of bacterial superinfection. Antibiotic narrowed down to short course of azithromycin. Continue Tamiflu. 2. AE COPD with history of former tobacco use, quit 2013: Patient is being managed on scheduled bronchodilator, IV Solu-Medrol, Mucinex, incentive spirometry and Pep. 2/3: Patient has generalized edema of upper and lower extremity. He got about 5 L of IV fluid. Furosemide 40 mg IV 1 dose ordered. Amlodipine discontinued 2/4: A scheduled furosemide ordered. 3. Syncope - Volume resuscitate with NS IVF. Serialize troponin. Check echocardiogram to evaluate LVEF. Check carotid Doppler to evaluate for stenosis. 5. Morbid Obesity; with BMI of 44.2 this admission adding to the burden of disease outlined from #1 - #4 - Weight loss will be recommended. Check TSH. This complicates his case and may hamper recovery. 6. DM-2; of unknown control on metformin and glipizide with Hyperglycemia of 195 mg/dL and HgbA1c of 6.7% present on admission - ADA diet. FSBS q. AC/HS plus SSI. Hold oral hypoglycemic agents during hospitalization. Metformin should additionally be held ~72 hours after IV contrast given for CTA of chest. 7. Essential Hypertension; on amlodipine, losartan and hydrochlorothiazide - Continue amlodipine but hold losartan and hydrochlorothiazide with elevated serum creatinine of 1.39 mg/dL present on admission. Give hydralazine IV prn for systolic blood pressure > 160 mmHg. 8. Hyperlipidemia; on atorvastatin - Hold statin until patient's condition improves. DVT prophylaxis - Heparin 5,000U sq TID plus SCD's. Total time of the visit including total time spent in counseling or coordination of care, (more than 50% of the total time, spent in obtaining medical information from nurses and other ancillary care providers ,explaining to the patient about labs, imaging, diagnosis and management of active complex medical conditions), discussion with the patient's over the phone, discussion with the consultants review of labs and imaging is 40 minutes. Charges/Coding Visit Charges Inpatient E&M: 03775 Subs Hosp L3
[2024-08-18 08:37] LABS: Anion Gap 4 (5-15); BUN 18 mg/dL (7-18); Calcium,Total 7.8 mg/dL (8.5-10.1); Chloride 100 mmol/L (98-107); Creatinine, Serum 0.95 mg/dL (0.70-1.30); EST Glomerular Filtration Rate 84 mL/min (>60); Est Glom Filt Rate - Afr Amer 101 mL/min (>60); Estimated Creatinine Clearance 113.99 ml/min; Glucose 118 mg/dL (74-106); Potassium 3.7 mmol/L (3.5-5.1); Sodium Level 136 mmol/L (136-145)
[2024-08-18] MEDS: guaiFENesin/D-Methorphan TAB.SR.12H 2 TABLET PO ×2 (10:05→22:53)
[2024-08-18] MEDS: Azithromycin 250 MG Tablet 500 MG PO (10:05)
[2024-08-18] MEDS: Pantoprazole Sodium 40 MG Tablet PO (10:06)
[2024-08-18] MEDS: Cholecalciferol (Vit D3) 125 MCG CAPSULE (5,000 UNITS) PO (10:06)
[2024-08-18] MEDS: Lactobacillis Acidophilus 1 CAP PO ×4 (10:06→22:51)
[2024-08-18] MEDS: Oseltamivir Phosphate 75 MG Capsule PO ×2 (10:06→22:53)
[2024-08-18] MEDS: 0.9% Saline Lock 10 ML Syringe IV (10:21)
[2024-08-18] MEDS: Furosemide 40 MG/4 ML Vial IV ×2 (10:21→17:09)
--- NOTE | 2024-08-18 10:41 | PCM.PN.ID ---
Physical Exam Narrative Feeling much better, mild cough, no fever Const alert and no apparent distress Resp Auscultation: diminished lung sounds Cardio regular rate and regular rhythm GI soft to palpation, non-tender and non-distended Skin no rashes or lesions noted ID ID: Route of nutrition/ use of supplements: [] Nutritional Intake: [] IV Site: [] Samuel Catheter: [] Assessment & Plan Assessment/Plan (1) COPD exacerbation: (2) Influenza A: PLAN: No clear evidence of bacterial superinfection. Will cont tamiflu, plan on 3 more days azithro. Will follow
[2024-08-18] MEDS: Insulin Lispro 100 UNIT/ML INSULN.PEN SC ×3 (14:03→22:52)
[2024-08-18 14:30] LABS: Bedside Glucose 170 mg/dL (74-106)
[2024-08-18 17:47] LABS: Bedside Glucose 215 mg/dL (74-106)
[2024-08-18 22:47] LABS: Bedside Glucose 254 mg/dL (74-106)
[2024-08-19] VITALS (10 sets, daily range): BP systolic 142–159; BP diastolic 76–86; PULSE 71–76; RESP 17–20; TEMP 36.6–36.7; O2SAT 87–97; BMI 45.0
[2024-08-19] MEDS: Heparin Injection (Vial) 5,000 UNIT/ML VIAL 5000 UNIT SC (05:41)
[2024-08-19] MEDS: Insulin Lispro 100 UNIT/ML INSULN.PEN SC ×2 (06:19→12:06)
[2024-08-19 06:55] LABS: Bedside Glucose 199 mg/dL (74-106)
[2024-08-19] MEDS: Lactobacillis Acidophilus 1 CAP PO (10:12)
[2024-08-19] MEDS: Oseltamivir Phosphate 75 MG Capsule PO (10:13)
[2024-08-19] MEDS: guaiFENesin/D-Methorphan TAB.SR.12H 2 TABLET PO (10:13)
[2024-08-19] MEDS: Pantoprazole Sodium 40 MG Tablet PO (10:36)
[2024-08-19] MEDS: 0.9% Saline Lock 10 ML Syringe IV (10:37)
[2024-08-19] MEDS: Azithromycin 250 MG Tablet 500 MG PO (10:37)
[2024-08-19] MEDS: Aspirin 81 MG TAB.CHEW PO (10:37)
[2024-08-19] MEDS: Furosemide 40 MG/4 ML Vial IV (10:37)
--- NOTE | 2024-08-19 11:36 | CASEMGMT ---
Dr. An states that the pt will likely DC today and may need new oxygen equipment. RN CM to pt room at this time. Pt at bedside. Pt and pt state that they have decided to go with [employer] (see previous RN CM note). Pt has MCR and [employer] is in-network. This RN CM educated the pt and pt on this process. Pt educated that if he qualifies, that [employer] will deliver a portable tank to the bedside and that the pt will need to call [employer] prior to departure for the delivery of the remaining oxygen equipment. Pt states understanding. Pt also states that he feels safe returning home today and denies the need for skilled HH, OP Tx, or CCN. 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 At this time, awaiting home oxygen qualification documentation.
--- NOTE | 2024-08-19 11:40 | DCINST_ITS ---
Discharge Instructions Diet Discharge Diet: 8 Cup Fluid Restriction and 2000 mg Sodium Diet DC O2, CPAP, BIPAP needs RN Home O2 Qualification: Home O2 Qualification: Is the patient on home oxygen No 08/19/24 13:29 Home O2 Qualification: AT REST 1- Pulse Ox at rest 87 08/19/24 13:29 2- Pulse Ox at rest 95 08/19/24 13:29 2- Oxygen Flow Rate at rest 2 08/19/24 13:29 Home O2 Qualification: WITH AMBULATION 1- Pulse Ox with ambulation 88 08/19/24 13:29 1- Oxygen Flow Rate with 2 08/19/24 13:29 ambulation 2- Pulse Ox with ambulation 92 08/19/24 13:29 2- Oxygen Flow Rate with 3 08/19/24 13:29 ambulation Home O2 Discharge instructions: Yes Type of respiratory needs?: Oxygen Oxygen frequency: Continuous Continuous oxygen liters per minute: 2 and With Ambulation Oxygen liters per minute during Ambulation: 3 Dressing / Incision Discharge Activity: Return to Normal Activity Weight Bearing Status: Weight bearing as tolerated Dressing / Incision Call your doctor if you observe: Fever of 101 or Higher, Coldness, Increased Pain, Numbness or Tingling, Change in Color, Inability to urinate, Inability to have a bowel movement, Shortness of breath, Dizziness, Fainting spells, Swelling in the ankles, Chest pain, Prolonged hiccupping, Increased palpitations (irregular heartbeat) and Calf discomfort Follow Up Care When: IN 2 WEEKS Test Results: Test results from this visit will be discussed in further detail at your follow- up appointment, if applicable. Discharge Plan Admission Admit Date/Time: 08/15/24 23:17 Primary Reason for Your Visit: COPD exacerbation from influenza A. Chronic HFpEF Attending Provider: Mack An Primary Care Provider: Rick Henderson Consulting Providers: Tanner Bah; Kishore Glover; Buck Bray; David Wallis; Yuri Chester; Edd Perez; Tanner Rosales; Alonso Power; Jorge Corrales; Carol Mcgregor; Salvador Craig; Mike Zavala; Yariel Wen; Mariya Ibanez; Elizabeth Castorena; Trina Conn; Torrey Rogers; Lavelle Su; Mitch Cardozo; Rasheed Bravo; Donta Patton; Ky Virgen; Jaswant Delcid; Jay Cornell; Raymond House Instructions Additional Instructions / Restrictions: Follow-up in pulmonary clinic for sleep study and PFT Discharge Orders/Prescriptions Prescriptions: New azithromycin 500 mg tablet 500 mg PO Q24 2 Days Qty: 2 0RF dextromethorphan-guaifenesin 60-1,200 mg tablet extended release 12 hr 1 tab PO BID 7 Days Qty: 14 0RF oseltamivir 75 mg Capsule 75 mg PO BID 1 Days Qty: 2 0RF furosemide 40 mg tablet 40 mg PO DAILY 14 Days Qty: 14 0RF Rx Instructions: Take extra 40 mg dose at 5 PM for increased leg swelling or weight gain 5 pounds in 1 week. potassium chloride 20 mEq tablet extended release 20 meq PO DAILY 30 Days Qty: 30 0RF prednisone 20 mg tablet 40 mg PO DAILY 5 Days Qty: 10 0RF Continued atorvastatin [Lipitor] 10 mg tablet 20 mg PO DAILY losartan 50 MG tablet 100 mg PO DAILY omega-3 fatty acids 300 MG capsule 300 mg PO DAILY aspirin 81 MG tablet 81 mg PO DAILY@0800 multivitamin with folic acid 1 TABLET tablet 1 tab PO DAILY metformin 500 MG tablet 1,000 mg PO BID glimepiride 4 mg tablet 4 mg PO BID Changed amlodipine 10 MG tablet 5 mg PO DAILY 30 Days Qty: 0 0RF Held hydrochlorothiazide 25 MG tablet 25 mg PO DAILY Hold Instructions: Hold it while patient is taking furosemide Referrals / Follow Up: Edd Perez DO [Med Staff - Active Staff] - Within 1 Month Rick Henderson MD [Primary Care Provider] - Melinda Cifuentes MD [Med Staff - Active Staff] - Within 1 Month (For possible heart failure) Disposition Disposition (needs filled in before D/C Order can be placed): Home, Self Care
[2024-08-19 12:31] LABS: Bedside Glucose 263 mg/dL (74-106)
--- NOTE | 2024-08-19 13:37 | CASEMGMT ---
Addendum entered by Paula Christian 08/19/24 15:01: Oxygen has been delivered to the pt room and DC summary sent to [facility] via [facility] at this time. Original Note: Per the boiler testing technician, pt qualifies for 2L @ rest and 3L with exertion. Rx signed by Dr. An. Rx and O2 testing sent to [facility] via [facility] at this time.
--- NOTE | 2024-08-19 14:01 | PCM.DC.SUM ---
Providers Date of Admission: 08/15/24 Date of Discharge: 08/19/24 Primary Care Physician: Dr. Ean Sow MD Consultations 08/17/24 08:44 Consult: Infectious Disease Routine Consulting Provider: Kishore Glover Reason for Consult: suspicion of bacterial pneumonia on Flu A EMERGENT Consult: No Notified: Yes Date Notified: 08/17/24 Time Notified: 08:44 Method of Notification: Text 08/17/24 11:48 Consult: Saturation Diver / Pulmonary Medicine Routine Consulting Provider: Intensivists/Pulmonary Med Reason for Consult: o2 demands EMERGENT Consult: No Notified: Yes Date Notified: 08/17/24 Time Notified: 11:48 Method of Notification: Verbal Reason For Visit: INFLUENZA A WITH ACUTE RESPIRATORY INSUFFIENCY Diagnosis Discharge Diagnosis (1) Influenza A: Status: Acute Code(s): J10.1 - Influenza due to other identified influenza virus with other respiratory manifestations Plan 68-year-old gentleman was brought to ED after an episode of syncope, diagnosed with influenza A in urgent care. After he went home, he was seen and passed out. EMS found pulse oximetry 79% on room air. Patient has mild productive cough, denies any chest pain, nausea vomiting or abdominal pain. Symptoms started 3 days ago. Fever Tmax 100.2 Fahrenheit 1. Influenza A with suspicion of superimposed bacterial infection suggestive of sepsis: Patient admitted in ICU with suspicion of sepsis. The patient presented with sepsis with clinical indicators of tachypnea, tachycardia, leukocytosis due to pneumonia as described below with acute sepsis-related organ dysfunction as evidenced by acute hypoxic respiratory failure and lactic acidosis Patient did not had hypotension but lactic acidosis 2.5. CTAP does not show pulmonary embolism but airspace opacities in the lingula and left lower lobe and mild ground-glass attenuation in the right middle lobe and lower lobe likely on an infectious inflammatory basis. Patient was started on Tamiflu. Empirically started on IV vancomycin and Zosyn. 2/3: Urinary antigens are negative. ID consulted to titrate down the antibiotics. MRSA nasal screen ordered. Patient is still on 9 L of oxygen high flow 08/18: Discussed with ID yesterday. No clear evidence of bacterial superinfection. Antibiotic narrowed down to short course of azithromycin. Continue Tamiflu. 08/19: Patient is discharged on 2 more days of azithromycin and 2 more doses of Tamiflu. Home oxygen qualification test was done. Patient requires 2 L of oxygen at rest and 3 L on ambulation. I have reviewed the oxygen testing, and this patient qualifies for the home equipment and portability. The patient is mobile in the home and the community. 2. AE COPD with history of former tobacco use, quit 2012: Patient is being managed on scheduled bronchodilator, IV Solu-Medrol, Mucinex, incentive spirometry and Pep. 08/17: Patient has generalized edema of upper and lower extremity. He got about 5 L of IV fluid. Furosemide 40 mg IV 1 dose ordered. Amlodipine discontinued 08/18: A scheduled furosemide ordered. 08/19: Upper and lower extremity swelling is much improved almost 70 to 80%. Patient discharged on 2 more weeks of furosemide 40 mg daily and prednisone burst therapy 40 mg daily for 5 days. Hold HCTZ while on furosemide. Follow with PCP in 2 weeks. Follow-up in pulmonary clinic for sleep study and PFT. 3. Syncope - Volume resuscitate with NS IVF. 2 serial troponins were negative. ACS ruled out 2D echo was done which shows EF 65% with normal LV systolic function, mild concentric LVH. Patient might have chronic HFpEF. Follow-up in cardiology clinic 5. Morbid Obesity; with BMI of 44.2 this admission adding to the burden of disease outlined from #1 - #4 - Weight loss will be recommended. Check TSH. This complicates his case and may hamper recovery. 6. DM-2; of unknown control on metformin and glipizide with Hyperglycemia of 195 mg/dL and HgbA1c of 6.7% present on admission - ADA diet. FSBS q. AC/HS plus SSI. Hold oral hypoglycemic agents during hospitalization. Metformin should additionally be held ~72 hours after IV contrast given for CTA of chest. 7. Essential Hypertension; on amlodipine, losartan and hydrochlorothiazide - Continue amlodipine but hold losartan and hydrochlorothiazide with elevated serum creatinine of 1.39 mg/dL present on admission. Give hydralazine IV prn for systolic blood pressure > 160 mmHg. 8. Hyperlipidemia; on atorvastatin -fasting profile within normal limit. Patient on atorvastatin 20 mg daily. Advised to continue. Carotid Doppler shows mild stenosis in right ICA and moderate on the left ICA. DVT prophylaxis - Heparin 5,000U sq TID plus SCD's. Discharge Echo 08/15/2019 for Interpretation Summary Normal LV size. Left ventricular systolic function is normal. The left ventricular ejection fraction is 65 %. Mild concentric left ventricular hypertrophy. Contrast injection was performed Clinical Impression(s) from Imaging Studies Chest X-Ray 08/15/24 21:50 IMPRESSION: Subsegmental atelectasis and/or scarring, left midlung. Otherwise no active cardiopulmonary disease. [facility] Carotid Duplex 08/15/24 23:32 Interpretation Summary Mild (<50%) stenosis right extracranial internal carotid. Moderate (50-69%) stenosis left extracranial internal carotid. Patent and antegrade vertebrals bilaterally. Ordering Physician: Tanner Bah Referring Physician: Ean Sow Performed By: Tracy Esparza RVT Echocardiogram 08/15/24 23:32 Interpretation Summary Normal LV size. Left ventricular systolic function is normal. The left ventricular ejection fraction is 65 %. Mild concentric left ventricular hypertrophy. Contrast injection was performed. Ordering Physician: Tanner Bah Referring Physician: EAN SOW Performed By: Yara Shine RCS Chest CTA 08/15/24 23:45 IMPRESSION: 1. Suboptimal contrast opacification of the pulmonary arterial vasculature limited assessment for pulmonary embolism. However, no definite central pulmonary embolism is identified. 2. Airspace opacities in the lingula and left lower lobe and mild ground-glass attenuation in the right middle lobe and right lower lobe likely on an infectious inflammatory basis. One or more dose reduction techniques were used (e.g., Automated exposure control, adjustment of the mA and/or kV according to patient size, use of iterative reconstruction technique). [facility] Chest X-Ray 08/16/24 06:05 IMPRESSION: 1. Bilateral lung infiltrates. 2. Elevation of the left hemidiaphragm. [facility] Chest X-Ray 08/17/24 08:40 IMPRESSION: Cardiomegaly with pulmonary congestion and edema. Superimposed pneumonia cannot be excluded. Reading [facility] Medications at Discharge Home Medications hydrochlorothiazide 25 mg tablet 25 mg PO DAILY 04/23/13 Held on 08/19/24. Instructions: Hold it while patient is taking furosemide losartan 50 mg tablet 100 mg PO DAILY 04/23/13 omega-3 fatty acids 300 mg capsule 300 mg PO DAILY 04/23/13 aspirin 81 mg tablet,delayed release 81 mg PO DAILY@0800 11/09/14 multivitamin with folic acid 400 mcg tablet 1 tab PO DAILY 11/09/14 atorvastatin 10 mg tablet (Lipitor) 20 mg PO DAILY 08/11/18 metformin 500 mg tablet,extended release 24 hr 1,000 mg PO BID 06/29/19 glimepiride 4 mg tablet 4 mg PO BID 07/05/23 amlodipine 10 mg tablet 5 mg (1/2 x 10 mg) PO DAILY 30 days #0 tabs 08/19/24 azithromycin 500 mg tablet 500 mg PO Q24 2 days #2 tabs 08/19/24 dextromethorphan-guaifenesin ER 60 mg-1,200 mg tab,extend release,12hr 1 tab PO BID 7 days #14 tabs 08/19/24 furosemide 40 mg tablet 40 mg PO DAILY 14 days #14 tabs 08/19/24 oseltamivir 75 mg capsule 75 mg PO BID 1 day #2 caps 08/19/24 potassium chloride 20 mEq tablet,extended release 20 meq PO DAILY 1 month #30 tabs 02/05/25 prednisone 20 mg tablet 40 mg (2 x 20 mg) PO DAILY 5 days #10 tabs 08/19/24 Physical Exam Narrative Seen and examined. States his shortness of breath is better. Upper and lower extremity edema has improved. On 2 L of oxygen at rest and 3 L on ambulation Physical exam General: Alert, Oriented x3, Cooperative HEENT: Atraumatic, PERRLA, EOMI, Normocephalic Oral: No Gingival or Mucosal Lesions/ Ulcerations Neck: Supple, No JVD, Negative Carotid Bruits Chest wall/Lungs: Air entry diminished in bilateral lung bases. Mild crepitations. Cardiovascular: Regular rate, Regular Rhythm, Normal S1, Normal S2, systolic murmur. Abdomen: Bowel Sounds Present, Soft, Non Tender, Non-Distended : No dysuria. No renal angle tenderness. No suprapubic tenderness. Extremities: Generalized edema of lower and upper extremities, Capillary Refill Less than 3 Seconds Skin: No rashes, No breakdown Musculoskeletal: No Tenderness to Palpation of Joints or Extremities Neurological: Cranial nerves II-XII grossly intact, DTR 2+/4. No acute focal neurological deficit. Psych/Mental Status: Normal Affect, Appropriate. Weight / BMI Weight Weight: 341 lb 7.936 oz Body Mass Index (BMI) 45.0 ABG / Lab / Microbiology Data 08/18/24 07:48 08/18/24 07:48 Laboratory: Laboratory Results - last 24 hr 08/18/24 14:02: POC Glucose 170 H 08/18/24 17:04: POC Glucose 215 H 08/18/24 22:29: POC Glucose 254 H 08/19/24 06:17: POC Glucose 199 H 08/19/24 12:00: POC Glucose 263 H Microbiology: Microbiology 08/16/24 17:40 Sputum, Expectorated/Coughed Gram Stain - Final 08/16/24 17:40 Sputum, Expectorated/Coughed Respiratory Culture - Final Mixed normal respiratory steve. No Streptococcus pneumoniae, beta-hemolytic Streptococcus or Staphylococcus aureus isolated. 08/17/24 11:20 Nasal Secretion MRSA (PCR) - Final 08/16/24 07:40 Mucosa - Nasopharyngeal Coronavirus COVID-19 PCR - Final 08/16/24 07:40 Mucosa - Nasopharyngeal Respiratory Panel (PCR) - Final Influenza A (Subtype H1) 08/16/24 02:00 Urine, Random Legionella Antigen - Final 08/16/24 02:00 Urine, Random Streptococcus pneumoniae Antigen (M - Final D/C Instructions Discharge Diet: 8 Cup Fluid Restriction and 2000 mg Sodium Diet Weight Bearing Status: Weight bearing as tolerated Call your doctor if you observe: Fever of 101 or Higher, Coldness, Increased Pain, Numbness or Tingling, Change in Color, Inability to urinate, Inability to have a bowel movement, Shortness of breath, Dizziness, Fainting spells, Swelling in the ankles, Chest pain, Prolonged hiccupping, Increased palpitations (irregular heartbeat) and Calf discomfort DC O2, CPAP, BIPAP Needs RN Home O2 Qualification: Home O2 Qualification: Is the patient on home oxygen No 08/19/24 13:29 Home O2 Qualification: AT REST 1- Pulse Ox at rest 87 08/19/24 13:29 2- Pulse Ox at rest 95 08/19/24 13:29 2- Oxygen Flow Rate at rest 2 08/19/24 13:29 Home O2 Qualification: WITH AMBULATION 1- Pulse Ox with ambulation 88 08/19/24 13:29 1- Oxygen Flow Rate with 2 08/19/24 13:29 ambulation 2- Pulse Ox with ambulation 92 08/19/24 13:29 2- Oxygen Flow Rate with 3 08/19/24 13:29 ambulation PSN CPAP & BiPAP: BiPAP & CPAP Settings per PSN Mode BiPAP 08/17/24 23:56 Bipap Delivery Device Face Mask 08/17/24 23:56 BiPAP Inspiratory Pressure 12 08/17/24 23:56 BiPAP Expiratory Pressure 6 08/17/24 23:56 BiPAP Rate 14 08/17/24 23:56 Fraction of Inspired Oxygen ( 50 08/17/24 23:56 FIO2) Home O2 Discharge instructions: Yes Type of respiratory needs?: Oxygen Oxygen frequency: Continuous Continuous oxygen liters per minute: 2 and With Ambulation Oxygen liters per minute during Ambulation: 3 DC home with Oxygen: Yes Home O2 MD Review: I have reviewed the oxygen testing, and the patient qualifies for home oxygen equipment and portability. The patient is mobile in the home and the community. When: IN 2 WEEKS Meaningful Use Info Meaningful Use Meaningful Use Diagnoses (Choose all that apply): None applicable Ischemic Stroke Statin Dosing Therapy Reference: STATIN DOSE THERAPY REFERENCE: * Patients > 75 years receive moderate or high dose statin therapy. * Patients 75 years or YOUNGER should receive HIGH intensity statin dose unless contraindicated. You will be required to document reason for non-treatment if statin daily dose does not meet guidelines. HIGH DOSE STATIN THERAPY DAILY Atorvastatin > than or = to 40 mg Rosuvastatin > than or = to 20 mg Amlodipine + Atorvastatin > than or = to 2.5/40 mg Ezetimibe + Simvastatin 10/80 mg Simvastatin 80mg Discharge Plan Admission Admit Date/Time: 08/15/24 23:17 Primary Reason for Your Visit: COPD exacerbation from influenza A. Chronic HFpEF Attending Provider: Mack An Primary Care Provider: Ean Sow Consulting Providers: Tanner Bah; Kishore Glover; Buck Bray; David Wallis; Yuri Chester; Edd Perez; Tanner Rosales; Alonso Power; Jorge Corrales; Carol Mcgregor; Salvador Craig; Mike Zavala; Yariel Wen; Mariya Ibanez; Elizabeth Castorena; Trina Conn; Torrey Rogers; Lavelle Su; Mitch Cardozo; Rasheed Bravo; Donta Patton; Ky Virgen; Jaswant Delcid; Jay Cornell; Raymond House Instructions Additional Instructions / Restrictions: Follow-up in pulmonary clinic for sleep study and PFT Discharge Orders/Prescriptions Prescriptions: New azithromycin 500 mg tablet 500 mg PO Q24 2 Days Qty: 2 0RF dextromethorphan-guaifenesin 60-1,200 mg tablet extended release 12 hr 1 tab PO BID 7 Days Qty: 14 0RF oseltamivir 75 mg Capsule 75 mg PO BID 1 Days Qty: 2 0RF furosemide 40 mg tablet 40 mg PO DAILY 14 Days Qty: 14 0RF Rx Instructions: Take extra 40 mg dose at 5 PM for increased leg swelling or weight gain 5 pounds in 1 week. potassium chloride 20 mEq tablet extended release 20 meq PO DAILY 30 Days Qty: 30 0RF prednisone 20 mg tablet 40 mg PO DAILY 5 Days Qty: 10 0RF Continued atorvastatin [Lipitor] 10 mg tablet 20 mg PO DAILY losartan 50 MG tablet 100 mg PO DAILY omega-3 fatty acids 300 MG capsule 300 mg PO DAILY aspirin 81 MG tablet 81 mg PO DAILY@0800 multivitamin with folic acid 1 TABLET tablet 1 tab PO DAILY metformin 500 MG tablet 1,000 mg PO BID glimepiride 4 mg tablet 4 mg PO BID Changed amlodipine 10 MG tablet 5 mg PO DAILY 30 Days Qty: 0 0RF Held hydrochlorothiazide 25 MG tablet 25 mg PO DAILY Hold Instructions: Hold it while patient is taking furosemide Referrals / Follow Up: Melinda Cifuentes MD [Med Staff - Active Staff] - Within 1 Month (For possible heart failure) Edd Perez DO [Med Staff - Active Staff] - Within 1 Month Ean Sow MD [Primary Care Provider] - Disposition Disposition (needs filled in before D/C Order can be placed): Home, Self Care Charges/Coding Visit Charges Inpatient E&M: 27516 Disch Hosp >30min
[2024-08-19] MEDS: Cholecalciferol (Vit D3) 125 MCG CAPSULE (5,000 UNITS) PO (14:48)
== END 2024-08-19 15:18 | disposition home or self-care (01) | DRG 871 ==
LOC: ED 23:26 → MS3 08-16 00:07 → ICU 08-16 07:27 → MS2 08-19 13:58 → ICU 08-21 12:01
PROVIDERS: Admitting Provider Internal Medicine; Emergency Provider Emergency Medicine; PCP Family Medicine; Visit Provider Internal Medicine
DX: A41.9 Sepsis, unspecified organism (principal); J96.01 Acute respiratory failure with hypoxia; J15.9 Unspecified bacterial pneumonia; E87.20 Acidosis, unspecified; J44.0 Chronic obstructive pulmonary disease with (acute) lower respiratory infection; Z68.41 Body mass index [BMI] 40.0-44.9, adult; J44.1 Chronic obstructive pulmonary disease with (acute) exacerbation; E11.65 Type 2 diabetes mellitus with hyperglycemia; I10 Essential (primary) hypertension; I65.23 Occlusion and stenosis of bilateral carotid arteries; J10.1 Influenza due to other identified influenza virus with other respiratory manifestations; E66.01 Morbid (severe) obesity due to excess calories; E78.5 Hyperlipidemia, unspecified; J30.2 Other seasonal allergic rhinitis; G47.33 Obstructive sleep apnea (adult) (pediatric); Z79.84 Long term (current) use of oral hypoglycemic drugs; Z87.891 Personal history of nicotine dependence; R55 Syncope and collapse; Z79.51 Long term (current) use of inhaled steroids; Z79.52 Long term (current) use of systemic steroids; Z79.899 Other long term (current) drug therapy; Z79.02 Long term (current) use of antithrombotics/antiplatelets; Z91.199 Patient's noncompliance with other medical treatment and regimen due to unspecified reason
CPT/HCPCS: 36415; 71045; 71046; 71275; 80048; 80053; 80061; 80202; 81001; 82962; 83036; 83605; 83735; 83880; 84100; 84443; 84484; 85025; 87070; 87205; 87449; 87633; 87635; 87641; 93005; 93306; 93880; 94002; 94640; 94668; 94762; 97163; 97166; 97530; 97535; 99285; Q9957; Q9967; A4216; C8929; J1940; J2405

== ENCOUNTER → 2024-10-16 | Outpatient (CLI) | payer MEDICARE, OTHER, SELFPAY ==
--- NOTE | 2024-10-19 09:03 | STRESSREP_ITS ---
Stress Test Report Date: 10/16/2024 Procedure: Pharmacologic stress nuclear imaging study Indications: Dyspnea on exertion Consent: Per the patient Procedure: The patient underwent pharmacologic (Regadenoson 0.4mg ) evaluation with a peak heart rate of 110 beats per minute (73%predicted maximal heart rate) and a peak blood pressure of 170/70 mmHg. The baseline ECG demonstrated sinus rhythm with occasional PVCs. The peak pharmacologic ECG shows no diagnostic ischemic changes. Occasional PVCs pretest, frequent PVCs during pharmacologic infusion and in recovery. There was no complaint of chest discomfort during pharmacologic infusion or recovery. The patient was injected with 14.9 millicuries of technetium 99m Cardiolite and subsequently rest SPECT Cardiolite nuclear imaging was obtained in the horizontal long, vertical long, and short axis views. The patient underwent pharmacologic (Regadenoson) evaluation. The patient was injected with 44.5 millicuries of technetium 99m Cardiolite and subsequently stress SPECT Cardiolite nuclear imaging was obtained in the horizontal long, vertical long, and short axis views. A gated Cardiolite study at peak stress was obtained. The examination was stopped secondary to completion of protocol. Rest and stress SPECT Cardiolite nuclear imaging status post realignment, normalization, and attenuation correction demonstrate no fixed or reversible perfusion defects. There is end systolic thickening and brightening. The gated Cardiolite study demonstrates myocardial thickening and inward wall motion. The reported LVEF is 63%. Impression: 1. Pharmacologic (Regadenoson) evaluation 2. Peak pharmacologic ECG with no diagnostic ischemic changes. 3. Occasional PVCs noted pretest. Frequent PVCs during pharmacologic infusion and in recovery. 5. Rest and stress SPECT Cardiolite nuclear imaging demonstrate relative uniform tracer uptake and myocardial perfusion appearing within normal limits. 6. The gated Cardiolite study reports an LVEF of 63%. This note was generated with Talknoteation software. It may contain incorrect words, spelling, and punctuation that were not noted in checking the note before signing.
== END | disposition home or self-care (01) ==
PROVIDERS: PCP Family Medicine; Referring Provider Internal Medicine Cardiovascular Disease; Visit Provider Internal Medicine Cardiovascular Disease
DX: R06.09 Other forms of dyspnea (principal); R06.02 Shortness of breath; I10 Essential (primary) hypertension; E78.2 Mixed hyperlipidemia
CPT/HCPCS: 78452; 93017; A9500; A4216; J2785

== ENCOUNTER → 2024-10-28 | Outpatient (CLI) | payer MEDICARE, OTHER, SELFPAY ==
[2024-10-28 12:38] VITALS: PULSE 103; PULSE 79; PULSE 84; PULSE 93; O2SAT 88; O2SAT 89; O2SAT 90; O2SAT 91; O2SAT 92
--- NOTE | 2024-10-28 12:38 | CPS ---
Pt was put on his 2lpm pulse dose oxygen machine @4minutes. Pt wears 2lpm pulse dose at rest and 3lpm pulse dose with exercise.
--- NOTE | 2024-10-29 12:36 | PCM.PSN.6M ---
PSN 6 Minute Walk Test 6 Minute Walk Test 6 Minute Walk Test: 6 Minute Walk Test PSN:6-Minute Walk Test Start: 10/28/24 13:23 Freq: Status: Active Protocol: [id number] Document 10/28/24 12:38 [facility] (Rec: 10/28/24 13:31 [facility] [id number]) 6 Minute Walk Test Date Performed 10/28/24 Time Performed 12:38 Height 7 ft 1 in Weight: 320 lb Weight in Pounds 320.[address]: ERASTO Assistive device None used: Pre-test Oxygen Delivery Room Air Method Pulse Ox (%) 92 Pulse Rate (60-100 79 beats/min) Dyspnea Disha Scale ( 2 0-10) Exertion Disha Scale 6 (6-20) 1st minute Oxygen Delivery Room Air Method Pulse Ox (%) 92 Pulse Rate (60-100 79 beats/min) 2nd minute Oxygen Delivery Room Air Method Pulse Ox (%) 91 Pulse Rate (60-100 84 beats/min) 3rd minute Oxygen Delivery Room Air Method Pulse Ox (%) 89 Pulse Rate (60-100 93 beats/min) Reported Symptoms Increased Work of Breathing 4th minute Oxygen Delivery Room Air Method Pulse Ox (%) 88 Pulse Rate (60-100 93 beats/min) Reported Symptoms Increased Work of Breathing 5th minute Oxygen Flow Rate (L/ 2 min) (L/min) Oxygen Delivery Nasal Cannula Method Pulse Ox (%) 90 Pulse Rate (60-100 103 H beats/min) Reported Symptoms Increased Work of Breathing 6th minute Oxygen Flow Rate (L/ 2 min) (L/min) Oxygen Delivery Nasal Cannula Method Pulse Ox (%) 91 Pulse Rate (60-100 84 beats/min) Reported Symptoms Increased Work of Breathing Post-test Oxygen Delivery Room Air Method Pulse Ox (%) 92 Pulse Rate (60-100 79 beats/min) Dyspnea Disha Scale ( 2 0-10) Exertion Disha Scale 6 (6-20) Full Laps Walked 15 Partial Lap, Number 0 of Tiles Walked Total Distance 885 Walked (ft) 10/28/24 12:38 (created 10/28/24 13:28) Cardiopulmonary Services by Prema Barrett Pt was put on his 2lpm pulse dose oxygen machine @4minutes. Pt wears 2lpm pulse dose at rest and 3lpm pulse dose with exercise. Initialized on 10/28/24 13:28 - END OF NOTE Interpretation Interpretation: The patient ambulated 885 feet over the course of 6 minutes beginning on room air without assistive devices. Pretesting oxygen saturation was noted to be 92% on room air. With ambulation, the guzman oxygen saturation was 88%. 2 L/min of supplemental oxygen was applied, and the patient was able to complete the remainder of the test while maintaining appropriate saturations. Recommendations Recommendations: 2 L/min of supplemental oxygen should be utilized with exertion.
== END | disposition home or self-care (01) ==
LOC: PSN 12:32
PROVIDERS: PCP Family Medicine; Referring Provider Nurse Practitioner Acute Care; Visit Provider Nurse Practitioner Acute Care
DX: R06.02 Shortness of breath (principal)

== ENCOUNTER → 2024-10-30 | Outpatient (CLI) | payer MEDICARE, OTHER, SELFPAY | END | disposition home or self-care (01) | LOC: PSN 10:45 | PROVIDERS: PCP Family Medicine; Referring Provider Nurse Practitioner Acute Care; Visit Provider Nurse Practitioner Acute Care | DX: R06.02 Shortness of breath (principal) | CPT/HCPCS: 94060; 94726; 94729 ==

== ENCOUNTER → 2024-11-02 | Outpatient (CLI) | payer MEDICARE, OTHER, SELFPAY ==
--- NOTE | 2024-11-02 13:11 | CT_ITS ---
PROCEDURE: CHEST WITHOUT CONTRAST 11/02/2024 REASON FOR EXAM: GROUNDGLASS PNEUMONIA TECHNIQUE: Chest CT without contrast. Coronal and Sagittal reconstruction series were provided. One or more dose reduction techniques were used (e.g., Automated exposure control, adjustment of the mA and/or kV according to patient size, use of iterative reconstruction technique RADIATION DOSE SUMMARY: CTDlvol: 20.15 mGy DLP: 775.38 mGycm COMPARISON: Comparison is made with prior study dated August 15, 2024. FINDINGS: Hardware: None Lymph nodes: Subcentimeter scattered mediastinal lymph nodes. Heart and Vasculature: Atherosclerotic calcifications of the thoracic aorta. Thoracic aorta and pulmonary arteries have normal contours; noncontrast technique limits evaluation. Coronary Artery Calcifications: Present Lungs and Airways: Since prior study, there has been improved aeration in the scattered ground-glass appearance infiltrates in the left lung. Mild degree of residual changes seen in the posterior aspect of the left upper lobe abutting the left major fissure. The previously seen infiltrates in the left lower lobe have resolved. Pleura: Unremarkable Upper Abdomen: Status post cholecystectomy. Scattered calcified granulomas. Bones: Degenerative changes of the thoracic spine. CT/Chest without Contrast IMPRESSION: Coronary artery calcification (CAC) is is present Interval improvement in the aeration in the left hemithorax with residual atele ctasis and/or infiltrate in the posterior aspect of the left upper lobe. Reading Location: [place] [id number]
== END | disposition home or self-care (01) ==
LOC: CT 12:56
PROVIDERS: PCP Family Medicine; Referring Provider Nurse Practitioner Acute Care; Visit Provider Nurse Practitioner Acute Care
DX: R93.89 Abnormal findings on diagnostic imaging of other specified body structures (principal); J18.8 Other pneumonia, unspecified organism
CPT/HCPCS: 71250

== ENCOUNTER → 2024-12-15 | Outpatient (CLI) | payer MEDICARE, OTHER, SELFPAY | END | disposition home or self-care (01) | LOC: SL 11:22 | PROVIDERS: PCP Family Medicine; Referring Provider Nurse Practitioner Acute Care; Visit Provider Nurse Practitioner Acute Care | DX: R09.02 Hypoxemia (principal) | CPT/HCPCS: 94762 ==

== ENCOUNTER → 2025-01-25 | Outpatient (CLI) | payer MEDICARE, OTHER, SELFPAY ==
[2025-01-25 12:14] LABS: Anion Gap 12 (5-15); BUN 16 mg/dL (4-19); BUN/Creat Ratio 16.0 RATIO (10-20); Calcium,Total 9.4 mg/dL (7.6-11.0); Carbon Dioxide 25.9 mmol/L (21.0-32.0); Chloride 101 mmol/L (98-108); Glucose 118 mg/dL (70-99); Potassium 4.6 mmol/L (3.3-5.1)
== END | disposition home or self-care (01) ==
LOC: LAB 10:34
PROVIDERS: PCP Family Medicine; Referring Provider Nurse Practitioner Gerontology; Visit Provider Nurse Practitioner Gerontology
DX: I10 Essential (primary) hypertension (principal)
CPT/HCPCS: 36415; 80048

== ENCOUNTER → 2025-01-29 | Outpatient (CLI) | payer MEDICARE, OTHER, SELFPAY | END | disposition home or self-care (01) | LOC: PSN 12:04 | PROVIDERS: PCP Family Medicine; Referring Provider Nurse Practitioner Gerontology; Visit Provider Nurse Practitioner Gerontology | DX: I49.3 Ventricular premature depolarization (principal) | CPT/HCPCS: 93225; 93226 ==

== ENCOUNTER → 2025-03-03 | Outpatient (CLI) | payer MEDICARE, OTHER, SELFPAY ==
--- NOTE | 2025-03-03 08:37 | CT_ITS ---
PROCEDURE: CHEST WITHOUT CONTRAST 03/03/2025 REASON FOR EXAM: SHORTNESS OF BREATH WITH RESTRICTIVE LUNG DISEASE TECHNIQUE: Chest CT without contrast. Coronal and Sagittal reconstruction series were provided. One or more dose reduction techniques were used (e.g., Automated exposure control, adjustment of the mA and/or kV according to patient size, use of iterative reconstruction technique RADIATION DOSE SUMMARY: CTDlvol: 20.13 mGy DLP: 907.95 mGycm COMPARISON: Prior study dated November 02, 2024. FINDINGS: Hardware: None Lymph nodes: Small benign-appearing mediastinal lymph nodes. Heart and Vasculature: Borderline cardiomegaly. Atherosclerotic calcifications of the thoracic aorta. Thoracic aorta and pulmonary arteries have normal contours; noncontrast technique limits evaluation. Coronary Artery Calcifications: Present Lungs and Airways: Mild residual increased linear markings in the lingular segment of the left upper lobe suggestive of scarring. No new infiltration is seen. Pleura: No pleural effusion. Upper Abdomen: Scattered splenic granulomas. Prior cholecystectomy. Bones: Degenerative changes of the thoracic spine. CT/Chest without Contrast IMPRESSION: Coronary artery calcification (CAC) is is present Mild residual increased markings in the lingular segment of the left upper lobe suggestive of linear scarring. Reading Location: [facility]
== END | disposition home or self-care (01) ==
LOC: CT 08:27
PROVIDERS: PCP Family Medicine; Referring Provider Nurse Practitioner Acute Care; Visit Provider Nurse Practitioner Acute Care
DX: R93.89 Abnormal findings on diagnostic imaging of other specified body structures (principal); R06.02 Shortness of breath; J45.909 Unspecified asthma, uncomplicated
CPT/HCPCS: 71250

== ENCOUNTER → 2025-04-05 | Outpatient (CLI) | payer MEDICARE, OTHER, SELFPAY ==
--- OUTSIDE RECORDS SUMMARY | 2025-04-05 20:13 | XMS RPT_ITS | CCD ---
Author Organization [facility] Care Team Providers Care Farm Machine Tender Name Role Phone Rick Sow MD Primary Care Provider Dr. Kishore De Anda Attending Provider Dr. Kishore De Anda Other Provider Dr. Rick Sow Primary Care Provider Dr. Rick Sow Referring Provider Rick Sow MD Primary Care Provider Rick Sow MD Primary Care Provider Richard DOWNING.WELFARE ELIGIBILITY WORKER, Bethanei Unavailable Robin PIERSON, Farzana Unavailable Geovanni RN, Alesia Apodaca Unavailable Geovanni RN, Alesia Apodaca Unavailable Josee RN, Tarik Unavailable Dr. iRck Sow MD Primary Care Provider Dr. Vera Orta DO Emergency Provider Dr. Tanner Bah DO Admit Provider Unavail able Dr. Tanner Bah DO Other Provider Unavail able Adalberto ROJAS, Dr. Novak Other Provider Asa ROJAS, Dr. Jane Other Provider Dr. David Wallis MD Other Provider Dr. Yuri Chester MD Other Provider Dr. Edd Perez DO Other Provider Connie ROJAS, Dr. Tanner López Other Provider Jannet ROJAS, Dr. Gupta Other Provider [phone] Savanna ROJAS, Dr. Patel Other Provider Meche ROJAS, Dr. Medina Other Provider [phone] Rafa ROJAS, Dr. Franco Other Provider [phone] Lucas ROJAS, Dr. Mckeon Other Provider [phone] Behzad ROJAS, Dr. Saldivar Other Provider Marcelle ROJAS, Dr. Meraz Other Provider Kell ROJAS, Dr. Johnson Other [facility] elena Conn MD, Dr. Mena Other Provider [phone] Ken ROJAS, Dr. Hirsch Other Provider Georges ROJAS, Dr. Valderrama Other Provider [phone] Juliane ROJAS, Dr. Meyer Other Provider Shelly LUCAS, Dr. Iqbal Other Provider Pooja ROJAS, Dr. Longo Other Provider [phone] Param ROJAS, Dr. Mcpherson Other Provider [phone] Mary Delcid DO Other Provider Kraig ROJAS, Dr. Thompson Other Provider [phone] Harsh ROJAS, Dr. Andrade Other Provider Juve ROJAS, Dr. Giron Attending Provider Dr. Mack An MD Other Provider Lacey ROJAS, Dr. Kimbrough Attending Provider Dr. Tanner Bah DO Referring Provider Dariel Lua MD, Dr. Bradford Attending Provider Juve ROJAS, Dr. Giron Referring Provider Dr. Edd Perez DO Attending Provider [phone] Juanjose ROJAS, Dr. Cabrera Referring Provider Lara SEWING MACHINE TESTER-C, Юлия Attending Provider Esau ROJAS, Dr. Lawrence Attending Provider Esau ROJAS, Dr. Lawrence Referring Provider Esau ROJAS, Dr. Lawrence Other Provider Juanjose ROJAS, Rick Primary Care Provider [phone] Lara SEWING MACHINE TESTER-C, Юлия Referring Provider Lara SEWING MACHINE TESTER-C, Юлия Other Provider Juve ROJAS, Dr. Giron Other Provider Chris LUCAS, Dr. Puga Attending Provider Juanjose ROJAS, Dr. Cabrera Primary Care Provider Zohaib SEWING MACHINE TESTER-C, Raquel Attending Provider Richard ASSEMBLY RIVETER.WELFARE ELIGIBILITY WORKER, Bethanie Unavailable Robin PA-C, Farzana Unavailable Juanjose ROJAS, Dr. Cabrera Primary Care Provider Esau ROJAS, Dr. Lawrence Attending Provider Lara SEWING MACHINE TESTER-C, Юлия Attending Provider Juanjose ROJAS, Dr. Cabrera Referring Provider Zohaib SIMMS-C, Raquel Referring Provider [phone] Juanjose ROJAS, Dr. Cabrera Primary Care Provider Juanjose ROJAS, Dr. Cabrera Primary Care Provider Lara SEWING MACHINE TESTER-C, Юлия Attending Provider Lara SEWING MACHINE TESTER-C, Юлия Referring Provider Esau ROJAS, Dr. Lawrence Attending Provider Juanjose ROJAS, Dr. Cabrera Primary Care Provider Lara SEWING MACHINE TESTER-C, Юлия Attending Provider Juanjose ROJAS, Dr. Cabrera Referring Provider Lara SEWING MACHINE TESTER, Юлия Referring Unavailable Bermudez SEWING MACHINE TESTER, Юлия Attending Unavailable Juanjose, Rick Primary Care Unavailable Juanjose, Rick Primary Care Unavailable Penny SEWING MACHINE TESTER, Raquel Attending Unavailable Zohaib SEWING MACHINE TESTER, Raquel Referring Unavailable Juanjose, Rick Primary Care Unavailable EsauMelinda simpson Attending Unavailable Esau, Melinda Consulting Unavailable Esau, Melinda Referring Unavailable Bermudez SEWING MACHINE TESTER, Юлия Attending Unavailable Bermudez SEWING MACHINE TESTER, Юлия Referring Unavailable Juanjose, Rick Primary Care Unavailable Bermudez SEWING MACHINE TESTER, Юлия Attending Unavailable Bermudez SEWING MACHINE TESTER, Юлия Referring Unavailable Juanjose, Rick Primary Care Unavailable Juanjose, Rick Primary Care Unavailable Esau, Melinda Attending Unavailable Esau, Melinda Referring Unavailable Juve Mack Attending Unavailable Juanjose, Rick Primary Care Unavailable Tanner Bah Consulting Unavailable Tanner Bah Admitting Unavailable Kishore Glover Consulting Unavailable Buck Bray Consulting Unavailable David Wallsi Consulting Unavailable Yuri Chester Consulting Unavailable Edd Perez Consulting Unavailable Tanner Rosales Consulting Unavailable Alonso Power Consulting Unavailable Jorge Corrales Consulting Unavailable Carol Mcgregor Consulting UnavailSalvador Mcginnis Consulting Unavailable Mike Zavala Consulting Unavailable Yariel Wen Consulting Unavailable Mariya Ibanez Consulting Unavailable Elizabeth Castorena Consulting Unavailable Trina Conn Consulting Unavailable Torrey Rogers Consulting Unavailable Lavelle Su Consulting Unavailable Mitch Cardozo Consulting Unavailable Rasheed Bravo Consulting Unavailable Donta Patton Consulting Unavailable Ky Virgen Consulting Unavailable Mary Delcid Unavailable Jay Cornell Consulting Unavailable Raymond House Consulting Unavailable Lara SEWING MACHINE TESTER, Юлия Attending Unavailable Lara SEWING MACHINE TESTER, Юлия Referring Unavailable Juanjose, Rick Primary Care Unavailable Edd Perez Attending Unavailable Lara SEWING MACHINE TESTER, Юлия Consulting Unavailable Bermudez SEWING MACHINE TESTER, Юлия Referring Unavailable Juanjose, Rick Primary Care Unavailable Mack An Referring Unavailable Tanner Bah Admitting Unavailable Tanner Bah Consulting Unavailable Edd Perez Attending Unavailable Juanjose, Rick Primary Care Unavailable Kishore Glover Consulting Unavailable Buck Bray Consulting Unavailable David Wallis Consulting Unavailable Yuri Chester Consulting Unavailable Edd Perez Consulting Unavailable Tanner Rosales Consulting Unavailable Alonso Power Consulting Unavailable Jorge Corrales Consulting Unavailable Carol Mcgregor Consulting Unavailab Salvador Zendejas Consulting Unavailable Zavala, Mike Consulting Unavailable Yariel Wen Consulting Unavailable Mariya Ibanez Consulting Unavailable Elizabeth Castorena Consulting Unavailable ConnTrina travis Consulting Unavailable Ken, Torrey Consulting Unavailable Irdavid, Lavelle Consulting Unavailable Juliane, Mitch Consulting Unavailable Dhesi, Rasheed Consulting Unavailable Donta Patton Consulting Unavailable Ky Virgen Consulting Unavailable Mary Delcid Consulting Unavailable Jay Cornell Consulting Unavailable Raymond House Consulting Unavailable Juve, Mack Consulting Unavailable Tanner Bah Attending Unavailable Juve, Mack Attending Unavailable Juanjose, Rick Primary Care Unavailable Zohaib SEWING MACHINE TESTER, Raquel Referring Unavailable Melinda Cifuentes Attending Unavailable Lara SEWING MACHINE TESTER, Юлия Attending Unavailable Lara SEWING MACHINE TESTER, Юлия Referring Unavailable Juanjose, Rick Primary Care Unavailable Lara SEWING MACHINE TESTER, Юлия Attending Unavailable Juanjose, Rick Primary Care Unavailable Juanjose, Rick Referring Unavailable Edd Perez Attending Unavailable Tanner Bah Referring Unavailable Juanjose, Rick Primary Care Unavailable Luis E Rahman Attending Unavailable Juanjose, Rick Primary Care Unavailable Sanchez Lua Attending Unavailable Juanjose, Rick Primary Care Unavailable Zohaib SEWING MACHINE TESTER, Raquel Attending Unavailable Zohaib SEWING MACHINE TESTER, Raquel Referring Unavailable Juanjose, Rick Referring Unavailable Juanjose, Rick Primary Care Unavailable Melinda Cifuentes Attending Unavailable Lara SEWING MACHINE TESTER, Юлия Attending Unavailable Juanjose, Rick Referring Unavailable Juanjose, Rick Primary Care Unavailable Juanjose, Rick Primary Care Unavailable Juanjose, Rick Referring Unavailable Zohaib SEWING MACHINE TESTER, Rauqel Attending Unavailable Juanjose, Rick Primary Care Unavailable Juanjose, Rick Referring Unavailable Bermudez SEWING MACHINE TESTER, Юлия Attending Unavailable Bermudez SEWING MACHINE TESTER, Юлия Attending Unavailable Juanjose, Rick Primary Care Unavailable Juanjose, Rick Referring Unavailable Bermudez SEWING MACHINE TESTER, Юлия Referring Unavailable Bermudez SEWING MACHINE TESTER, Юлия Attending Unavailable Juanjose, Rick Primary Care Unavailable JUANJOSE, RICK A Primary Care Unavailable FARZANA KELLY Attending Unavailable JUANJOSE, RICK A Primary Care Unavailable FARZANA KELLY Attending Unavailable JUANJOSE, RICK A Referring Unavailable JUANJOSE, RICK A Primary Care Unavailable FARZANA KELLY Referring Unavailable JUANJOSE, RICK A Primary Care Unavailable JUANJOSE, RICK A Primary Care Unavailable FARZANA KELLY Attending Unavailable JUANJOSE, RICK A Primary Care Unavailable JUANJOSE, RICK A Primary Care Unavailable FARZANA KELLY Attending Unavailable RICK SOW Primary Care Unavailable SELF Referring Unavailable RICK SOW Primary Care Unavailable FARZANA KELLY Referring Unavailable RICK SOW Primary Care Unavailable RICK SOW Attending Unavailable FARZANA KELLY Referring Unavailable RICK SOW Primary Care Unavailable Allergies Allergy Classification Reported Allergen(s) Allergy Type Date of Onset Reaction(s) Facility (20 sources) Lisinopril; Translations: [LISINOPRIL] Drug Allergy 8 Cough [facility] Work Phone: (20 sources) dapagliflozin; Translations: [DAPAGLIFLOZIN] Drug Allergy 3 Other: See Comments [facility] Work Phone: (20 sources) pioglitazone; Translations: [PIOGLITAZONE] Drug Allergy 4 Shortness of Breath [facility] Work Phone: (1 source) dapagliflozin Drug Allergy 5 [facility] Repository (1 source) Lisinopril Drug Allergy 5 [facility] Repository (1 source) pioglitazone Drug Allergy 5 [facility] Repository Medications Current Medications Medication Drug Class(es) Dates Sig (Normalized) Sig (Original) [id number] 200 actuat albuterol 0.09 mg/actuat metered dose inhaler (1 source) beta2-Adrenergic Agonist Start: 03-26-2025 Albuterol Sulfate (Ventolin Hfa) 90 mcg/actuation HFA aerosol inhaler Active 2 NMA INHALATION Q4H as needed for shortness of breath or wheezing 01 06March 26, 2025 12:00am aspirin 81 mg delayed release oral tablet (20 sources) Platelet Aggregation Inhibitor, Nonsteroidal Anti-inflammatory Drug Start: 11-09-2014 take 1 tablet by mouth once daily Aspirin 81 MG tablet Active 81 mg PO DAILY@0800 November 09, 2014 12:00am Start: 09-15-2013 take 1 tablet by eleuterio th once daily at mealtime Aspirin 81 mg tab Take 1 tablet by mouth once daily. Take with food. 30 tablet 11 09/15/2013 Active Comment on above: Take 1 tablet by eleuterio th once daily. Take with food. atorvastatin 20 mg oral tablet (20 sources) HMG-CoA Reductase Inhibitor Start: 05-07-20 End: 10-06-19 take 1 tablet by mouth once daily for hyperlipidemia atorvastatin (LIPITOR) 20 mg tablet Take 1 tablet by mouth once daily. For cholesterol. 90 tablet 1 10/05/2024 Active Start: 12-05-2022 End: 04-29-2023 take 1 tablet by mouth once daily for hyperlipidemia atorvastatin (LIPITOR) 20 mg tablet Indications: Hyperlipidemia with target LDL less than 100 Take 1 tablet by mouth once daily. For cholesterol. 90 tablet 1 12/05/2022 04/29/2023 Discontinued Start: 06-28-2021 End: 04-23-2022 take 1 tablet by mouth once daily for hyperlipidemia atorvastatin (LIPITOR) 20 mg tablet Indications: Hyperlipidemia with target LDL less than 100 Take 1 tablet by mouth once daily. For cholesterol. 90 tablet 1 11/29/2021 04/23/2022 Discontinued Start: 08-11-2018 End: 09-16-2024 take 2 tablets by mouth once daily Atorvastatin (Lipit or) 10 mg tablet Discontinued 20 mg PO DAILY August 11, 2018 1:00am September 16, 2024 5:21pm Comment on above: Take 1 tablet by [facility] once daily. For cholesterol. cefadroxil 500 mg oral capsule (1 source) Cephalosporin Antibacterial Start: End: take 1 capsule by mouth twice daily cefADROxil (DURICEF) 500 mg capsule Take 1 capsule by mouth twice daily for 7 days. 14 capsule 0 11/29/2021 12/06/2021 Active Comment on above: Take 1 capsule by [facility] twice daily for 7 days. cetirizine hydrochloride 10 mg oral tablet (4 sources) Histamine-1 Receptor Antagonist Start: 025 take 1 tablet by mouth once daily cetirizine (ZYRTEC) 10 mg tablet Take 1 tablet by mouth once daily. 30 tablet 11/05/2024 Active cyclobenzaprine hydrochloride 10 mg oral tablet (20 sources) Muscle Relaxant Start: 024 take 1 tablet by mouth three times daily as needed for muscle spasms cyclobenzaprine (FLEXERIL) 10 mg tablet Indications: Neck pain , Neck muscle spasm Take 1 tablet by mouth three times a day as needed for muscle spasm. 21 tablet 06/25/2024 Active furosemide 40 mg oral tablet (20 sources) Loop Diuretic Start: take 1 tablet by mouth once daily as needed, then take 3-5 tablets by mouth once as needed furosemide (LASIX) 40 mg tablet Take 1 tablet by mouth once daily. As needed for leg swelling or 3-5 lb weight gain. Per cardio: [facility] 01/18/2025 Active Start: 08-19-2024 End: 01-14-2025 take 1 tablet by mouth once daily as needed, then take 3-5 tablets by mouth once as needed furosemide (LASIX) 40 mg tablet Take 1 tablet by mouth once daily. As needed for leg swelling or 3-5 lb weight gain. Per cardio: [facility] 01/18/2025 Active glimepiride 4 mg oral tablet (20 sources) Sulfonylurea Start: 12-05-2022 End: 10-05-2024 glimepiride (AMARYL) 4 mg tablet Take 1 tab twice a day. 180 tablet 1 10/05/2024 Active Start: 03-28-2022 End: 09-25-2022 glimepiride (AMARYL) 4 mg ta blet Take 1 tab twice a day. 180 tablet 1 03/28/2022 04/23/2022 Discontinued Start: 11-29-2021 End: 03-28-2022 glimepiride (AMARYL) 4 mg ta blet Take 1.5 tabs in AM and 0.5 tabs in PM 180 tablet 1 03/27/2022 03/28/2022 Discontinued (Adjust Sig - Block E-Cancel) Start: 09-25-2021 End: 11-29-2021 take 1 tablet by mouth twice daily at mealtime glimepiride (AMARYL) 4 mg tablet Take 1 tablet by mouth twice daily with meals. 180 tablet 1 09/25/2021 11/29/2021 Discontinued Comment on above: Take 1.5 tabs in AM and 0.5 tabs in PM Take 1 tablet by eleuterio th twice daily with meals. Take 1 tab twice a d ay. iv contrast (will be provided with radiology test) (1 source) Start: 04-08-20 End: 04-09-20 iv contrast (will be provided with radiology test) Indications: Family history of pancreatic cancer CT PANCREAS W Inject, intravenously, once for 1 dose.No IV access, insert saline lock prior to the beginning of sedation, infusion, injection of imaging exam. Discontinue saline lock post exam. If Pt. has a central line or IVAD, may access for administration according to line specific nursing protocol. Once exam is complete flush line and de-access according to line specific nursing protocol in the CT contrast administration guidelines link. 1 Each 0 04/08/2023 04/09/2023 Active Comment on above: CT PANCREAS W Inject , intravenously, once for 1 dose.No IV access, insert saline lock prior to the beginning of sedation, infusion, injection of imaging exam. Discontinue saline lock post exam. If Pt. has a central line or IVAD, may access for administration according to line specific nursing protocol. Once exam is complete flush line and de-access according to line specific nursing protocol in the CT contrast administration guidelines link. ammonium lactate 120 mg/ml topical cream (19 sources) Start: 04-07-20 End: 10-05-19 ammonium lactate (LAC-HYDRIN) 12 % cream Apply to affected area as needed. 385 g 1 04/07/2024 10/04/2024 Active losartan potassium 50 mg oral tablet (20 sources) Angiotensin 2 Receptor Sarah Start: 04-23-20 End: 10-06-19 take 2 tablets by mouth once daily losartan (COZAAR) 50 mg tablet Take 2 tablets by mouth once daily. 180 tablet 1 10/05/2024 Active Start: 04-23-2013 take 100 mg by mouth once yudi y Losartan Active 100 MG PO DAILY April 23, 2013 6:10am Comment on above: Take 2 tablets by [facility] once daily. metFORMIN hydrochloride 1000 mg oral tablet (20 sources) Biguanide Start: 12-05-2022 End: 10-05-2024 take 1 tablet by mouth twice daily Metformin 1,000 mg tablet Active 1000 mg PO TWICE A DAY February 17, 2025 12:00am Start: 06-28-2021 End: 04-23-2022 take 1 tablet by mouth twice daily at mealtime metFORMIN (GLUCOPHAGE) 1,000 mg tablet Indications: Type 2 diabetes mellitus without complication, without long-term current use of insulin (HCC) Take 1 tablet by mouth twice daily with meals. 180 tablet 1 11/29/2021 04/23/2022 Discontinued Start: 06-29-2019 End: 02-17-2025 take 2 tablets by mouth twice daily Metformin 500 MG tablet Discontinued 1000 mg PO TWICE A DAY June 29, 2019 1:00am February 17, 2025 10:42am Start: 06-29-2019 take 1000 mg by mout h twice daily Metformin Active 1000 MG PO TWICE A DAY June 29, 2019 2:51pm Start: 06-12-2018 End: 08-11-2018 take 1 tablet by mouth twice daily Metformin 1,000 MG tablet,ER alexandra.retention 24 hr Discontinued 1000 mg PO TWICE A DAY June 12, 2018 1:00am August 11, 2018 3:35pm Comment on above: Take 1 tablet by eleuterio th twice daily with meals. Take 1 tablet by eleuterio th two times a day with meals. 24 hr metoprolol succinate 25 mg extended release oral tablet (3 sources) beta-Adrenergic Sarah Start: 02-17-20 take 1 tablet by mouth once daily Metoprolol Succinate 25 mg tablet extended release 24 hr Active 25 mg PO daily 90 3 February 16, 2025 12:00am metroNIDAZOLE 0.01 mg/mg topical gel (20 sources) Nitroimidazole Antimicrobial Start: 02-18-20 Metronidazole 1 % gel Active 1 NMA TOPICAL daily February 17, 2025 12:00am Start: 05-30-2020 End: 03-17-2024 metroNIDAZOLE (METROGEL) 1 % Topical Gel Indications: Rosacea Apply 1 application to affected area once daily. Location: face 60 g 1 10/01/2023 03/17/2024 Active Comment on above: Apply 1 application to affected area once daily. Location: face MULTI-VITAMIN ORAL (20 sources) MULTI-VITAMIN OR AL Take by mouth. Active MULTI-VITAMIN OR AL Take by mouth. 0 Active Comment on above: Take by mouth. Multivitamin With Folic Acid (2 sources) Start: 11-09-2014 take 1 tablet by mouth once daily Multivitamin With Folic Acid Active 1 TABLET PO DAILY November 09, 2014 3:22pm Start: 11-09-2014 take 1 tablet by eleuterio th once daily Multivitamin With Folic Acid Active 1 TABLET PO DAILY November 08, 2014 11:00pm Multivitamin With Folic Acid 1 TABLET tablet (10 sources) Start: 11-09-2014 take 1 tablet by mouth once daily Multivitamin With Folic Acid 1 TABLET tablet Active 1 {tbl} PO DAILY November 09, 2014 12:00am Meridian-3 Fatty Acids (2 sources) Start: 04-23-2013 take 300 mg by mouth once daily Meridian-3 Fatty Acids Active 300 MG PO DAILY April 23, 2013 6:10am Start: 04-23-2013 take 300 mg by mouth once yudi y Meridian-3 Fatty Acids Active 300 MG PO DAILY April 22, 2013 11:00pm Meridian-3 Fatty Acids 300 MG capsule (10 sources) Start: 04-23-2013 take 1 capsule by mouth once daily Meridian-3 Fatty Acids 300 MG capsule Active 300 mg PO DAILY April 23, 2013 12:00am Meridian-3 Fatty Acids-Vitamin E (FISH OIL) 1,000 mg cap (20 sources) Start: 04-10-2013 take 1 capsule by mouth once daily Meridian-3 Fatty Acids-Vitamin E (FISH OIL) 1,000 mg cap Indications: Personal history of colonic polyps Take 1 capsule by mouth once daily. 0 04/10/2013 Active Comment on above: Take 1 capsule by [facility] once daily. spironolactone 25 mg oral tablet (9 sources) Aldosterone Antagonist Start: 01-14-2025 take 1 tablet by mouth once spironolactone (ALDACTONE) 25 mg tablet Take 1 tablet by mouth once daily. Per [facility] 01/18/2025 Active Completed/Discontinued Medications Medication Drug Class(es) Dates Sig (Normalized) Sig (Original) acetaminophen 325 mg / HYDROcodone bitartrate 5 mg oral tablet (12 sources) Opioid Agonist Start: 07-02-2019 End: 07-04-2019 Hydrocodone-Acetamino phen 1 TABLET tablet Discontinued 1 {tbl} PO EVERY 6 HOURS NEEDED as needed for Pain 6 2 0 July 02, 2019 July 03, 2019 1:00am July 04, 2019 1:08am Postoperative pain Other acute postprocedural pain Start: 07-02-2019 End: 07-04-2019 take 1 tablet by mouth every six hours as needed Hydrocodone-Acetaminophen Discontinued 1 TABLET PO EVERY 6 HOURS NEEDED 6 2 July 02, 2019 July 04, 2019 12:08am amLODIPine 10 mg oral tablet (20 sources) Dihydropyridine Calcium Channel Sarah Start: 09-16-2024 End: 09-16-2024 take 1 tablet by mouth once daily Amlodipine 10 mg tablet Discontinued 10 mg PO DAILY September 16, 2024 5:20pm September 16, 2024 5:26pm Start: 08-27-2024 take 0.5 tablet by m outh once daily amLODIPine (NORVASC) 10 mg tablet Indications: Essential hypertension, benign Take 0.5 tablets by mouth once daily. 90 tablet 1 08/27/2024 Active Start: 08-19-2024 End: 09-16-2024 take 5 mg by mouth once daily Amlodipine 10 mg tablet Active 5 mg PO DAILY September 16, 2024 5:26pm Start: 04-23-2013 End: 08-27-2024 take 1 tablet by mouth once daily Amlodipine 10 MG tablet Discontinued 10 mg PO DAILY April 23, 2013 12:00am August 19, 2024 2:57pm Comment on above: Take 1 tablet by eleuterio th once daily. azithromycin 500 mg oral tablet (20 sources) Macrolide Antimicrobial Start: 08-19-19 End: 08-27-19 take 1 tablet by mouth once daily azithromycin (ZITHROMAX) 500 mg tablet Take 500 mg by mouth once daily. 08/19/2024 08/27/2024 Discontinued Start: 08-19-2024 End: 09-16-2024 take 1 tablet by mouth every twenty-four hours Azithromycin 500 mg tablet Discontinued 500 mg PO EVERY 24 HOURS 2 2 0 August 19, 2024 1:00am September 16, 2024 5:23pm Start: 08-11-2018 End: 06-08-2019 take 2-5 tablets by mouth once daily Azithromycin 250 mg tablet Discontinued 0 PO .COMPLEX 6 0 August 11, 2018 1:00am June 08, 2019 3:46pm take 500 mg today (day 1), then 250 mg for 4 days (days 2-5) PO benzonatate 100 mg oral capsule (12 sources) Non-narcotic Antitussive Start: 08-11-2018 End: 06-08-2019 take 2 capsules by mouth three times daily as needed for cough Benzonatate 100 mg capsule Discontinued 200 mg PO THREE TIMES A DAY as needed for cough 30 0 August 11, 2018 1:00am June 08, 2019 3:46pm Start: 08-11-2018 End: 06-08-2019 take 200 mg by mouth three times daily Benzonatate Discontinued 200 MG PO THREE TIMES A DAY August 11, 2018 4:29pm June 08, 2019 3:46pm canagliflozin 100 mg oral tablet (2 sources) Sodium-Glucose Cotransporter 2 Inhibitor Start: 04-03-2023 End: 09-30-2023 take 1 tablet by mouth once daily before breakfast canagliflozin (INVOKANA) 100 mg tab Indications: type 2 diabetes mellitus Take 1 tablet by mouth daily before breakfast. 90 tablet 1 04/03/2023 04/04/2023 Discontinued Comment on above: Take 1 tablet by eleuterio th daily before breakfast. dapagliflozin 5 mg oral tablet (10 sources) Sodium-Glucose Cotransporter 2 Inhibitor Start: 04-02-2023 End: 05-16-2023 take 1 tablet by mouth once daily at breakfast dapagliflozin propanediol (FARXIGA) 5 mg tablet Take 1 tablet by mouth daily with breakfast. 90 tablet 1 04/04/2023 05/16/2023 Discontinued (Adverse Reaction) Comment on above: Take 1 tablet by eleuterio th daily with breakfast. 12 hr dextromethorphan hydrobromide 60 mg / guaiFENesin 1200 mg extended release oral tablet (12 sources) Uncompetitive X-ggbkdh-S-aspartat e Receptor Antagonist, Sigma-1 Agonist Start: 08-19-2024 End: 08-27-2024 take 60-1200 mg by mouth every twelve hours dextromethorphan- guaiFENesin (MUCINEX-DM) 60-1,200 mg tablet Take 1 tablet by mouth every 12 hours. 08/19/2024 08/27/2024 Discontinued Start: 08-19-2024 End: 09-16-2024 Dextromethorphan-Guaifenesin 60-1,200 mg tablet extended release 12 hr Discontinued 1 {tbl} PO TWICE A DAY 14 7 0 August 19, 2024 1:00am September 16, 2024 5:23pm empagliflozin 10 mg oral tablet (7 sources) Sodium-Glucose Cotransporter 2 Inhibitor Start: 03-28-2022 End: 04-16-2022 take 1 tablet by mouth once daily, then take 1 tablet by mouth once daily in the morning empagliflozin (JARDIANCE) 10 mg tablet Take 1 tablet by mouth once daily. Take 1 tablet once daily in the morning 90 tablet 1 03/28/2022 04/16/2022 Discontinued (Cost of medication) Comment on above: Take 1 tablet by eleuterio th once daily. Take 1 tablet once daily in the morning hydroCHLOROthiazide 25 mg oral tablet (20 sources) Thiazide Diuretic Start: 04-23-2013 End: 09-24-2024 take 1 tablet by mouth once daily Hydrochlorothiazide 25 MG tablet Discontinued 25 mg PO DAILY April 23, 2013 12:00am September 24, 2024 4:16pm On Hold: Hold it while patient is taking furosemide Comment on above: Take 1 tablet by eleuterio once daily. ipratropium bromide 0.2 mg/ml inhalation solution (12 sources) Anticholinergic Start: 08-11-2018 End: 08-16-2018 take 1 mL by inhalation every six hours Ipratropium [place] 0.02 % solution Discontinued 2.5 mL INHALATION EVERY 6 HOURS 62.5 5 0 August 11, 2018 1:00am August 15, 2018 1:00am August 16, 2018 1:09am Acute bronchitis, unspecified oseltamivir 75 mg oral capsule (10 sources) Neuraminidase Inhibitor Start: 08-19-2024 End: 09-16-2024 take 1 capsule by mouth twice daily Oseltamivir 75 mg Capsule Discontinued 75 mg PO TWICE A DAY 2 1 August 19, 2024 1:00am September 16, 2024 5:23pm pioglitazone 15 mg oral tablet (20 sources) Peroxisome Proliferator Receptor alpha Agonist, Peroxisome Proliferator Receptor gamma Agonist, Thiazolidinedione Start: 04-07-2024 End: 08-27-2024 take 1 tablet by mouth once daily pioglitazone (ACTOS) 15 mg tablet Take 1 tablet by mouth once daily. 90 tablet 1 04/07/2024 08/27/2024 Discontinued Start: 05-17-2023 End: 04-07-2024 take 1 tablet by mouth once daily pioglitazone (ACTOS) 30 mg tablet Take 1 tablet by mouth once daily. 90 tablet 1 12/05/2023 04/07/2024 Discontinued Comment on above: Take 1 tablet by eleuterio once daily. potassium chloride 20 meq extended release oral tablet (20 sources) Start: 08-19-2024 End: 01-14-2025 take 1 tablet by mouth once daily Potassium Chloride 20 mEq tablet extended release Discontinued 20 meq PO DAILY 30 30 0 August 19, 2024 1:00am January 14, 2025 10:24am predniSONE 20 mg oral tablet (12 sources) Start: 08-19-2024 End: 08-27-2024 take 1 tablet by mouth once daily predniSONE (DELTASONE) 20 mg tablet Take 20 mg by mouth once daily. 08/19/2024 08/27/2024 Discontinued Start: 08-19-2024 End: 09-16-2024 take 2 tablets by mouth once daily Prednisone 20 mg tablet Discontinued 40 mg PO DAILY 10 5 0 August 19, 2024 1:00am September 16, 2024 5:22pm semaglutide 3 mg oral tablet (18 sources) Start: 04-01-2022 End: 09-25-2022 take 1 tablet by mouth once daily before breakfast semaglutide (RYBELSUS) 3 mg tablet Take 1 tablet by mouth daily before breakfast. 30 tablet 0 04/01/2022 09/25/2022 Discontinued Start: 04-01-2022 End: 09-25-2022 take 1 tablet by mouth once daily before breakfast semaglutide (RYBELSUS) 7 mg tablet Take 1 tablet (7 mg) by mouth daily before breakfast. After completing 3 mg dose 90 tablet 1 04/01/2022 09/25/2022 Discontinued Comment on above: Take 1 tablet by eleuterio th daily before breakfast. Take 1 tablet (7 mg) by mouth daily before breakfast. After completing 3 mg dose tadalafil 20 mg oral tablet (20 sources) Phosphodiesterase 5 Inhibitor Start: 03-28-20 End: 04-07-20 take 1 tablet by mouth once daily as needed Tadalafil (CIALIS) 20 mg tab(s) Take 1 tablet by mouth once daily. As needed 30 tablet 1 03/28/2022 04/07/2024 Discontinued (Discontinued by Patient) Comment on above: Take 1 tablet by eleuterio th once daily. As needed Problems Active Problems Problem Classification Problem Date Documented Da te Episodic/Chronic Abdominal hernia (20 sources) Umbilical hernia; Translations: [Umbilical hernia without obstruction or gangrene] 07-02-2019 Episodic Acute bronchitis (12 sources) Acute bronchitis; Translations: [Acute bronchitis, unspecified] 08-11-2018 Episodic Cardiac dysrhythmias (13 sources) Multiple premature ventricular complexes; Translations: [Ventricular premature depolarization] Onset: 02-18-2025 01-14-2025 Chronic Chronic obstructive pulmonary disease and bronchiectasis (16 sources) Acute exacerbation of chronic obstructive airways disease; Translations: [Chronic obstructive pulmonary disease with (acute) exacerbation] Onset: 08-28-2024 08-27-2024 Chronic Congestive heart failure; nonhypertensive (4 sources) Congestive heart failure; nonhypertensive Diabetes mellitus with complications (20 sources) Proteinuria [...] Translations: [Essential (primary) hypertension] Onset: 09-01-2007 Chronic Hyperplasia of prostate (20 sources) Urinary frequency due to benign prostatic hypertrophy; Translations: [Benign prostatic hyperplasia with lower urinary tract symptoms] Onset: 03-28-2022 03-28-2022 Chronic Neoplasms of unspecified nature or uncertain behavior (1 source) Neoplasm of uncertain behavior of skin of nose; Translations: [Neoplasm of uncertain behavior of skin] 04-02-2023 Episodic Occlusion or stenosis of precerebral arteries (11 sources) Bilateral stenosis of carotid arteries; Translations: [Occlusion and stenosis of bilateral carotid arteries] Onset: 10-05-2024 10-05-2024 Chronic Osteoarthritis (20 sources) Degenerative joint disease involving multiple joints; Translations: [Polyosteoarthritis, unspecified] Onset: 03-08-2005 03-11-2021 Chronic Other aftercare (1 source) Post-discharge follow-up; Translations: [Encounter for follow-up examination after completed treatment for conditions other than malignant neoplasm] 08-27-2024 Episodic Other and unspecified benign neoplasm (1 source) Personal history of colonic polyps; Translations: [Personal history of colonic polyps] 07-11-2023 Episodic Other circulatory disease (20 sources) Disorder of carotid artery; Translations: [Disorder of arteries and arterioles, unspecified] 09-24-2024 Chronic Other circulatory disease (1 source) Respiratory symptom; Translations: [Other specified symptoms and signs involving the circulatory and respiratory systems] Episodic Other connective tissue disease (2 sources) Pain in left foot; Translations: [Pain in left foot] Episodic Other connective tissue disease (1 source) Muscle spasm of cervical muscle of neck; Translations: [Other muscle spasm] 06-25-2024 Episodic Other gastrointestinal disorders (12 sources) Groin mass; Translations: [Other intra-abdominal and pelvic swelling, mass and lump] 06-08-2019 Episodic Other gastrointestinal disorders (10 sources) Heartburn; Translations: [Heartburn] 09-16-2024 Episodic Comment on above: SELDOM R/T FOODS Other inflammatory condition of skin (20 sources) Rosacea; Translations: [Rosacea, unspecified] Onset: 03-11-2021 03-11-2021 Chronic Other lower respiratory disease (15 sources) Dyspnea on exertion; Translations: [Other forms of dyspnea] 09-24-2024 Episodic Other lower respiratory disease (15 sources) Dyspnea; Translations: [Shortness of breath] 09-23-2024 Episodic Other lower respiratory disease (14 sources) Respiratory insufficiency; Translations: [Other abnormalities of breathing] 08-15-2024 Episodic Other lower respiratory disease (20 sources) Hypoxia; Translations: [Hypoxemia] 09-24-2024 Episodic Other lower respiratory disease (16 sources) Restrictive lung disease; Translations: [Other disorders of lung] 11-13-2024 Episodic Other male genital disorders (20 sources) Secondary erectile dysfunction; Translations: [Male erectile dysfunction, unspecified] Onset: 03-28-2022 03-28-2022 Chronic Other male genital disorders (10 sources) Male erectile dysfunction, unspecified; Translations: [Erectile dysfunction] 09-16-2024 Chronic Other nervous system disorders (20 sources) Carpal tunnel syndrome of left wrist; Translations: [Carpal tunnel syndrome, left upper limb] Onset: 07-06-2010 Resolved: 09-21-2014 03-11-2021 Chronic Other nutritional; endocrine; and metabolic disorders (20 sources) Body mass index 40+ - severely obese; Translations: [Morbid (severe) obesity due to excess calories] Onset: 07-06-2010 Chronic Other nutritional; endocrine; and metabolic disorders (16 sources) Morbid obesity; Translations: [Morbid (severe) obesity due to excess calories] 09-24-2024 Chronic Other nutritional; endocrine; and metabolic disorders (2 sources) Morbid (severe) obesity due to excess calories; Translations: [Morbid (severe) obesity due to excess calories] Onset: 08-28-2024 Chronic Other nutritional; endocrine; and metabolic disorders (2 sources) Body mass index (BMI) 40.0-44.9, adult; Translations: [Body mass index [BMI] 40.0-44.9, adult] Onset: 08-28-2024 Chronic Other screening for suspected conditions (not mental disorders or infectious disease) (20 sources) CT of chest abnormal; Translations: [Abnormal findings on diagnostic imaging of other specified body structures] Onset: 03-09-2025 09-23-2024 Chronic Other skin disorders (1 source) Eruption; Translations: [Rash and other nonspecific skin eruption] Episodic Other upper respiratory disease (4 sources) Nasal congestion; Translations: [Nasal congestion] 02-17-2025 Episodic Residual codes; unclassified (20 sources) Sleep apnea; Translations: [Sleep apnea, unspecified] Onset: 09-01-2007 03-11-2021 Chronic Residual codes; unclassified (2 sources) Obstructive sleep apnea (adult) (pediatric); Translations: [Obstructive sleep apnea (adult) (pediatric)] Onset: 03-26-2025 Chronic Residual codes; unclassified (1 source) Generalized aches and pains; Translations: [Pain, unspecified] Episodic Residual codes; unclassified (10 sources) Past history of procedure; Translations: [Personal history of other medical treatment] 09-16-2024 Episodic Comment on above: 09/2013 [facility], PREOP C HOLECYSTECTOMY Skin and subcutaneous tissue infections (1 source) Cellulitis of skin; Translations: [Cellulitis, unspecified] Episodic Unclassified (1 source) Acidosis, unspecified; Translations: [Acidosis, unspecified] Onset: 08-28-2024 Viral infection (2 sources) Verruca vulgaris; Translations: [Viral wart, unspecified] Episodic Past or Other Problems Problem Classification Problem Date Documented Date Episodic/Chronic Acquired foot deformities (20 sources) Abduction deformity of foot; Translations: [Valgus deformity, not elsewhere classified, left ankle] Onset: 04-02-2023 04-02-2023 Episodic Acute and unspecified renal failure (12 sources) Acute renal failure syndrome; Translations: [Acute kidney failure, unspecified] Onset: 08-27-2024 08-27-2024 Episodic Administrative/socia l admission (20 sources) Patient encounter status; Translations: [Dietary counseling and surveillance] Onset: 03-28-2022 Episodic Allergic reactions (20 sources) Solar degeneration; Translations: [Other skin changes due to chronic exposure to nonionizing radiation] Onset: 06-29-2024 06-29-2024 Episodic Biliary tract disease (20 sources) Gallstone; Translations: [Calculus of gallbladder without cholecystitis without obstruction] Onset: 03-08-2005 Resolved: 09-21-2014 09-21-2014 Episodic Cardiac dysrhythmias (20 sources) Palpitations; Translations: [Palpitations] Onset: 11-29-2021 Episodic Esophageal disorders (20 sources) Gastroesophageal reflux disease; Translations: [Gastro-esophageal reflux disease without esophagitis] Onset: 03-08-2005 Resolved: 09-21-2014 09-21-2014 Chronic Fluid and electrolyte disorders (16 sources) Hyponatremia; Translations: [Hypo-osmolality and hyponatremia] Onset: 09-03-2024 08-28-2024 Episodic Genitourinary symptoms and ill-defined conditions (1 source) Proteinuria, unspecified; Translations: [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)] Onset: 05-15-2021 Episodic Hemorrhoids (20 sources) Internal hemorrhoids; Translations: [Other hemorrhoids] Onset: 03-08-2005 Resolved: 09-21-2014 09-21-2014 Episodic Immunizations and screening for infectious disease (3 sources) Suspected disease caused by 2019-nCoV; Translations: [Suspected COVID-19 virus infection] Onset: 04-07-2024 Episodic Influenza (18 sources) Influenza due to Influenza A virus; Translations: [Influenza due to other identified influenza virus with other respiratory manifestations] Onset: 08-28-2024 08-15-2024 Episodic Nonspecific chest pain (20 sources) Chest pain; Translations: [Chest pain, unspecified] Onset: 03-08-2005 Resolved: 09-21-2014 09-21-2014 Episodic Open wounds of extremities (20 sources) Open wound of lower limb; Translations: [Unspecified open wound, unspecified knee, initial encounter] Onset: 03-08-2005 Resolved: 09-21-2014 09-21-2014 Episodic Other and unspecified benign neoplasm (20 sources) History of polyp of colon; Translations: [Personal history of colonic polyps] Onset: 10-13-2007 03-11-2021 Episodic Other connective tissue disease (20 sources) Plantar fasciitis; Translations: [Plantar fascial fibromatosis] Onset: 05-02-2018 03-11-2021 Episodic Other connective tissue disease (20 sources) Pain in left lower limb; Translations: [Pain in left leg] Onset: 04-02-2023 04-02-2023 Episodic Other diseases of veins and lymphatics (20 sources) Peripheral venous insufficiency; Translations: [Venous insufficiency (chronic) (peripheral)] Onset: 03-08-2005 Episodic Other diseases of veins and lymphatics (20 sources) Stasis dermatitis; Translations: [Venous insufficiency (chronic) (peripheral)] Onset: 07-07-2011 Episodic Other lower respiratory disease (1 source) Hypoxemia; Translations: [Hypoxemia] Onset: 12-17-2024 Episodic Other lower respiratory disease (2 sources) Shortness of breath; Translations: [Shortness of breath] Onset: 11-04-2024 Episodic Other lower respiratory disease (2 sources) Other forms of dyspnea; Translations: [Other forms of dyspnea] Onset: 11-03-2024 Episodic Other lower respiratory disease (1 source) Other abnormalities of breathing; Translations: [Other abnormalities of breathing] Onset: 08-28-2024 Episodic Other male genital disorders (20 sources) Disorder of prostate; Translations: [Disorder of prostate, unspecified] Onset: 11-29-2021 Episodic Other male genital disorders (1 source) Disorder of prostate, unspecified; Translations: [Prostate disorder] Onset: 11-29-2021 Episodic Other skin disorders (20 sources) Foot callus; Translations: [Corns and callosities] Onset: 04-02-2023 04-02-2023 Episodic Pneumonia (except that caused by tuberculosis or sexually transmitted disease) (15 sources) Pneumonia; Translations: [Pneumonia, unspecified organism] Onset: 08-28-2024 08-16-2024 Episodic Residual codes; unclassified (20 sources) Family history of malignant neoplasm of pancreas; Translations: [Family history of malignant neoplasm of digestive organs] Onset: 04-02-2023 04-02-2023 Episodic Screening and history of mental health and substance abuse codes (20 sources) Ex-smoker; Translations: [Personal history of nicotine dependence] Onset: 03-11-2021 03-16-2021 Episodic Comment on above: QUIT CIGARETTES 2012 Septicemia (except in labor) (16 sources) Sepsis; Translations: [Sepsis, unspecified organism] Onset: 08-28-2024 08-16-2024 Episodic Spondylosis; intervertebral disc disorders; other back problems (20 sources) Neck pain; Translations: [Cervicalgia] Onset: 06-26-2017 03-11-2021 Episodic Sprains and strains (20 sources) Sprain of ligament of lumbosacral joint; Translations: [Sprain of unspecified parts of lumbar spine and pelvis, initial encounter] Onset: 03-08-2005 Resolved: 09-21-2014 09-21-2014 Episodic Syncope (16 sources) Syncope; Translations: [Syncope and collapse] Onset: 08-28-2024 08-27-2024 Episodic Varicose veins of lower extremity (20 sources) Varicose veins of lower extremity; Translations: [Asymptomatic varicose veins of unspecified lower extremity] Onset: 03-08-2005 Resolved: 09-21-2014 03-11-2021 Episodic Results Test Name Value Interpretation Reference Range Facility ALBUMIN/CREATININE RATIO, UR INEon 04-02-2025 Albumin DL <= 20 mg/L (U) [Mass/Vol] 27.1 mg/L Normal [facility] Comment on above: Order Comment: Speci men Type: URINE SPECIMEN Ordering Facility: [facility] Address: [address] [place] [address] Performed By: #### U ACR #### [facility] CLIA [id number] [address] [place] [address] [place] Albumin/Creatinine (U) [Mass ratio] 33 mg/g High <30 [facility] Comment on above: Order Comment: Speci men Type: URINE SPECIMEN Ordering Facility: [facility] Address: [address] [place] [address] Result Comment: Adul t Male and Female Nephrotic Criteria: <30 mg/g is considered normal to mildly increased 30-300 mg/g is considered moderately increased >300 mg/g is considered severely increased KDIGO. (2013). KDIGO 2012 Clinical Practice Guideline for the Evaluation and Management of Chronic Kidney Disease. Official Journal of the International Society of Nephrology, 3(1), 1-150. Performed By: #### U ACR #### [facility] CLIA [id number] [address] [place] [address] [place] Creatinine (U) [Mass/Vol] 81.7 mg/dL Normal 20.0-300.0 [facility] Comment on above: Order Comment: Speci men Type: URINE SPECIMEN Ordering Facility: [facility] Address: [address] [place] [address] Performed By: #### U ACR #### [facility] CLIA [id number] [address] [place] [address] [place] CBC W Auto Differential pane l (Bld)on 04-02-2025 Basophils (Bld) [#/Vol] 0.05 10*3/uL Normal <0.11 [facility] Comment on above: Order Comment: Speci men Type: BLOOD SPECIMEN Ordering Facility: [facility] Address: [address] [place] [address] Performed By: #### 2 4321-2 #### [facility] CLIA [id number] [address] [place] [address] [place] Basophils/100 WBC (Bld) 0.7 % Normal [facility] Comment on above: Order Comment: Speci men Type: BLOOD SPECIMEN Ordering Facility: [facility] Address: [address] [place] [address] Performed By: #### 2 4321-2 #### [facility] CLIA [id number] [address] [place] [address] [place] Differential cell count method Nom (Bld) Auto Normal [facility] Comment on above: Order Comment: Speci men Type: BLOOD SPECIMEN Ordering Facility: [facility] Address: [address] [place] [address] Performed By: #### 2 4321-2 #### [facility] CLIA [id number] [address] [place] [address] [place] Eosinophils (Bld) [#/Vol] 0.33 10*3/uL Normal <0.46 [facility] Comment on above: Order Comment: Speci men Type: BLOOD SPECIMEN Ordering Facility: [facility] Address: [address] [place] [address] Performed By: #### 2 4321-2 #### [facility] CLIA [id number] [address] Eosinophils/100 WBC (Bld) 4.3 % Normal [facility] Comment on above: Order Comment: Speci men Type: BLOOD SPECIMEN Ordering Facility: [facility] Address: [address] [place] [address] Performed By: #### 2 4321-2 #### [facility] CLIA [id number] [address] Erythrocyte distribution width (RBC) [Ratio] 13.2 % Normal 11.5-15.0 [facility] Comment on above: Order Comment: Speci men Type: BLOOD SPECIMEN Ordering Facility: [facility] Address: [address] [place] [address] Performed By: #### 2 4321-2 #### [facility] CLIA [id number] [address] Hematocrit (Bld) [Volume fraction] 43.6 % Normal 39.0-51.0 [facility] Comment on above: Order Comment: Speci men Type: BLOOD SPECIMEN Ordering Facility: [facility] Address: [address] [place] [address] Performed By: #### 2 4321-2 #### [facility] CLIA [id number] [address] [place] Hemoglobin (Bld) [Mass/Vol] 14.3 g/dL Normal 13.0-17.0 [facility] Comment on above: Order Comment: Speci men Type: BLOOD SPECIMEN Ordering Facility: [facility] Address: [address] [place] [address] Performed By: #### 2 4321-2 #### [facility] CLIA [id number] [address] [place] Immature granulocytes (Bld) [#/Vol] 10*3/uL Normal <0.10 [facility] Comment on above: Order Comment: Speci men Type: BLOOD SPECIMEN Ordering Facility: [facility] Address: [address] [place] [address] Performed By: #### 2 4321-2 #### [facility] CLIA [id number] [address] [place] Immature granulocytes/100 WBC (Bld) 0.3 % Normal [facility] Comment on above: Order Comment: Speci men Type: BLOOD SPECIMEN Ordering Facility: [facility] Address: [address] [place] [address] Performed By: #### 2 1-2 #### [facility] CLIA [id number] [address] [place] Lymphocytes (Bld) [#/Vol] 2.61 10*3/uL Normal 1.00-4.00 [facility] Comment on above: Order Comment: Speci men Type: BLOOD SPECIMEN Ordering Facility: [facility] Address: [address] [place] [address] Performed By: #### 2 1-2 #### [facility] CLIA [id number] [address] Lymphocytes/100 WBC (Bld) 34.3 % Normal [facility] Comment on above: Order Comment: Speci men Type: BLOOD SPECIMEN Ordering Facility: [facility] Address: [address] [place] [address] Performed By: #### 2 1-2 #### [facility] CLIA [id number] [address] [place] MCH (RBC) [Entitic mass] 29.1 pg Normal 26.0-34.0 [facility] Comment on above: Order Comment: Speci men Type: BLOOD SPECIMEN Ordering Facility: [facility] Address: [address] [place] [address] Performed By: #### 2 1-2 #### [facility] CLIA [id number] [address] [place] MCHC (RBC) [Mass/Vol] 32.8 g/dL Normal 30.5-36.0 [facility] Comment on above: Order Comment: Speci men Type: BLOOD SPECIMEN Ordering Facility: [facility] Address: [address] [place] [address] Performed By: #### 2 4321-2 #### [facility] CLIA [id number] [address] [place] MCV (RBC) [Entitic vol] 88.8 fL Normal 80.0-100.0 [facility] Comment on above: Order Comment: Speci men Type: BLOOD SPECIMEN Ordering Facility: [facility] Address: [address] [place] [address] Performed By: #### 2 4321-2 #### [facility] CLIA [id number] [address] [place] Monocytes (Bld) [#/Vol] 0.52 10*3/uL Normal <0.87 [facility] Comment on above: Order Comment: Speci men Type: BLOOD SPECIMEN Ordering Facility: [facility] Address: [address] [place] [address] Performed By: #### 2 4321-2 #### [facility] CLIA [id number] [address] Monocytes/100 WBC (Bld) 6.8 % Normal [facility] Comment on above: Order Comment: Speci men Type: BLOOD SPECIMEN Ordering Facility: [facility] Address: [address] [place] [address] Performed By: #### 2 4321-2 #### [facility] CLIA [id number] [address] [place] Neutrophils (Bld) [#/Vol] 4.08 10*3/uL Normal 1.45-7.50 [facility] Comment on above: Order Comment: Speci men Type: BLOOD SPECIMEN Ordering Facility: [facility] Address: [address] [place] [address] Performed By: #### 2 4321-2 #### [facility] CLIA [id number] [address] [place] Neutrophils/100 WBC (Bld) 53.6 % Normal [facility] Comment on above: Order Comment: Speci men Type: BLOOD SPECIMEN Ordering Facility: [facility] Address: [address] [place] [address] Performed By: #### 2 4321-2 #### [facility] CLIA [id number] [address] [place] Nucleated RBC (Bld) [#/Vol] 10*3/uL Normal <0.01 [facility] Comment on above: Order Comment: Speci men Type: BLOOD SPECIMEN Ordering Facility: [facility] Address: [address] [place] [address] Performed By: #### 2 4321-2 #### [facility] CLIA [id number] [address] [place] Nucleated RBC/100 WBC (Bld) [Ratio] 0.0 /100 WBC Normal [facility] Comment on above: Order Comment: Speci men Type: BLOOD SPECIMEN Ordering Facility: [facility] Address: [address] [place] [address] Performed By: #### 2 4321-2 #### [facility] CLIA [id number] [address] [place] Platelet mean volume (Bld) [Entitic vol] 10.5 fL Normal 9.0-12.7 [facility] Comment on above: Order Comment: Speci men Type: BLOOD SPECIMEN Ordering Facility: [facility] Address: [address] [place] [address] Performed By: #### 2 4321-2 #### [facility] CLIA [id number] 1 [place] [address] [place] Platelets (Bld) [#/Vol] 219 10*3/uL Normal 150-400 [facility] Comment on above: Order Comment: Speci men Type: BLOOD SPECIMEN Ordering Facility: [facility] Address: [address] [place] [address] Performed By: #### 2 4321-2 #### [facility] CLIA [id number] [address] RBC (Bld) [#/Vol] 4.91 10*6/uL Normal 4.20-6.00 [facility] Comment on above: Order Comment: Speci men Type: BLOOD SPECIMEN Ordering Facility: [facility] Address: [address] [place] [address] Performed By: #### 2 4321-2 #### [facility] CLIA [id number] [address] [place] WBC (Bld) [#/Vol] 7.61 10*3/uL Normal 3.70-11.00 [facility] Comment on above: Order Comment: Speci men Type: BLOOD SPECIMEN Ordering Facility: [facility] Address: [address] [place] [address] Performed By: #### 2 4321-2 #### [facility] CLIA [id number] 1 [place] [address] [place] [facility] Comprehensive metabolic 2000 panelon 04-02-2025 Albumin [Mass/Vol] 4.2 g/dL Normal 3.9-4.9 [facility] Comment on above: Order Comment: Speci men Type: BLOOD SPECIMENOrdering Facility: [facility] Address: [address] [place] [address] Performed By: #### 2 4323-8, LIPNF ####[facility] LABCLIA [id number] [place] [address] [place] ALP [Catalytic activity/Vol] 47 U/L Normal 38-113 [facility] Comment on above: Order Comment: Speci men Type: BLOOD SPECIMENOrdering Facility: [facility] Address: [address] [place] [address] Performed By: #### 2 4323-8, LIPNF ####[facility] LABCLIA [id number] [facility] [place] [id number] [place] ALT [Catalytic activity/Vol] 15 U/L Normal 10-54 [facility] Comment on above: Order Comment: Speci men Type: BLOOD SPECIMENOrdering Facility: [facility] Address: [address] [place] [address] Performed By: #### 2 4323-8, LIPNF ####[facility] LABCLIA [id number] [place] [address] [place] Anion gap [Moles/Vol] 13 mmol/L Normal 8-15 [facility] Comment on above: Order Comment: Speci men Type: BLOOD SPECIMENOrdering Facility: [facility] Address: [address] [place] [address] Performed By: #### 2 4323-8, LIPNF ####[facility] LABCLIA [id number] [place] [address] [place] AST [Catalytic activity/Vol] 17 U/L Normal 14-40 [facility] Comment on above: Order Comment: Speci men Type: BLOOD SPECIMENOrdering Facility: [facility] Address: [address] [place] [address] Performed By: #### 2 4323-8, LIPNF ####[facility] LABCLIA [id number] [place] [address] [place] Bilirubin [Mass/Vol] 0.8 mg/dL Normal 0.2-1.3 [facility] Comment on above: Order Comment: Speci men Type: BLOOD SPECIMENOrdering Facility: [facility] Address: [address] [place] [address] Performed By: #### 2 4323-8, LIPNF ####[facility] LABCLIA [id number] [place] [id number] [place] Calcium [Mass/Vol] 9.4 mg/dL Normal 8.5-10.2 [facility] Comment on above: Order Comment: Speci men Type: BLOOD SPECIMENOrdering Facility: [facility] Address: [address] [place] [id number] Performed By: #### 2 4323-8, LIPNF ####[facility] LABCLIA [id number] [address] [address] [place] Chloride [Moles/Vol] 101 mmol/L Normal 98-107 [facility] Comment on above: Order Comment: Speci men Type: BLOOD SPECIMENOrdering Facility: [facility] Address: [address] [place], [place] [address] Performed By: #### 2 4323-8, LIPNF ####[facility] LABCLIA [id number] [place] [address] [place] CO2 [Moles/Vol] 25 mmol/L Normal 22-30 [facility] Comment on above: Order Comment: Speci men Type: BLOOD SPECIMENOrdering Facility: [facility] Address: [address] [place] [address] Performed By: #### 2 4323-8, LIPNF ####[facility] LABCLIA [id number] [place] [address] [place] Creatinine [Mass/Vol] 0.98 mg/dL Normal 0.73-1.22 [facility] Comment on above: Order Comment: Speci men Type: BLOOD SPECIMENOrdering Facility: [facility] Address: [address] [place], [place] [address] Performed By: #### 2 4323-8, LIPNF ####[facility] LABCLIA [id number] [place] [id number] [place] eGFRcr SerPlBld CKD-EPI 2020 82 mL/min/1.73m??? Normal >=60 [facility] Comment on above: Order Comment: Speci men Type: BLOOD SPECIMENOrdering Facility: [facility] Address: [address] [place] [address] Result Comment: Angeline mated Glomerular Filtration Rate (eGFR) is calculated using the 2020 CKD-EPI creatinine equation. This equation utilizes serum creatinine, sex, and age as parameters. The creatinine assay has traceable calibration to isotope dilution-mass spectrometry. Refer to KDIGO guidelines for clinical interpretation. In patients with unstable renal function, e.g. those with acute kidney injury, the eGFR may not accurately reflect actual GFR. Performed By: #### 2 4323-8, LIPNF ####[facility] LABIA [id number] [place] [address] [place] Glucose [Mass/Vol] 154 mg/dL High 74-99 [facility] Comment on above: Order Comment: Delia mccoy Type: BLOOD SPECIMENOrdering Facility: [facility] Address: [address] [place] [address] Result Comment: The [place] Diabetes Association (ADA) provides guidance for cutoff values for fasting glucose and random glucose. The ADA defines fasting as no caloric intake for at least 8 hours. Fasting plasma glucose results between 100 to 125 mg/dL indicate increased risk for diabetes (prediabetes). Fasting plasma glucose results greater than or equal to 126 mg/dL meet the criteria for diagnosis of diabetes. In the absence of unequivocal hyperglycemia, results should be confirmed by repeat testing. In a patient with classic symptoms of hyperglycemia or hyperglycemic crisis, random plasma glucose results greater than or equal to 200 mg/dL meet the criteria for diagnosis of diabetes. Reference: Standards of Medical Care in Diabetes 2016, [place] Diabetes Association. Diabetes Care. 2016.39(Suppl 1). Performed By: #### 2 4323-8, LIPNF ####[facility] LABIA [id number] [place] [address] [place] Potassium [Moles/Vol] 4.6 mmol/L Normal 3.7-5.1 [facility] Comment on above: Order Comment: Delia mccoy Type: BLOOD SPECIMENOrdering Facility: [facility] Address: [address] [place] [address] Performed By: #### 2 4323-8, LIPNF ####[facility] LABIA [id number] [place] [id number] [place] Protein [Mass/Vol] 7.2 g/dL Normal 6.3-8.0 [facility] Comment on above: Order Comment: Speci men Type: BLOOD SPECIMENOrdering Facility: [facility] Address: [address] [place] [address] Performed By: #### 2 4323-8, LIPNF ####[facility] LABCLIA [id number] [place] [address] [place] Sodium [Moles/Vol] 139 mmol/L Normal 136-144 [facility] Comment on above: Order Comment: Speci men Type: BLOOD SPECIMENOrdering Facility: [facility] Address: [address] [place] [address] Performed By: #### 2 4323-8, LIPNF ####[facility] LABCLIA [id number] [place] [address] [place] Urea nitrogen [Mass/Vol] 20 mg/dL Normal 9-24 [facility] Comment on above: Order Comment: Speci men Type: BLOOD SPECIMENOrdering Facility: [facility] Address: [address] [place] [address] Performed By: #### 2 4323-8, LIPNF ####[facility] LABCLIA [id number] [place] [address] [place] HbA1c (Bld)on 04-02-2025 Average glucose Estimated from glycated hemoglobin (Bld) [Mass/Vol] 143 mg/dL Normal [facility] Comment on above: Order Comment: Speci men Type: BLOOD SPECIMENOrdering Facility: [facility] Address: [address] [place] [address] Result Comment: eAG: (Estimated average glucose) is a calculated value from HgbA1c and is accounts receivable representative of the average blood glucose level in the last 2-3 month period. Performed By: #### 5 5454-3 ####[facility] LABCLIA [id number] [place] [id number] [place] HbA1c (Bld) [Mass fraction] 6.6 % High 4.3-5.6 [facility] Comment on above: Order Comment: Delia nadine Type: BLOOD SPECIMENOrdering Facility: [facility] Address: [address] [place] [address] Result Comment: [place] Diabetes Association guidelines indicate that patients with HgbA1c in the range 5.7-6.4% are at increased risk for development of diabetes, and intervention by lifestyle modification may be beneficial. HgbA1c greater or equal to 6.5% is considered diagnostic of diabetes. Performed By: #### 5 5454-3 ####[facility] LABCLIA [id number] [address] OF [facility] LIPID PANEL, NONFASTINGon Cholesterol [Mass/Vol] 112 mg/dL Normal <200 [facility] Comment on above: Order Comment: Delia men Type: BLOOD SPECIMENOrdering Facility: [facility] Address: [address] [place] [address] Result Comment: <200 mg/dL, Desirable 200-239 mg/dL, Borderline high >239 mg/dL, High Performed By: #### 2 4323-8, LIPNF ####[facility] LABCLIA [id number] [address] [place] HDL CHOLESTEROL, NF 35 mg/dL Low >39 [facility] Comment on above: Order Comment: Roosevelti nadine Type: BLOOD SPECIMENOrdering Facility: [facility] Address: [address] [place] [address] Result Comment: 40-5 9 mg/dL, Acceptable >59 mg/dL, High: Negative risk factor for coronary heart disease <40 mg/dL, Low: Positive risk factor for coronary heart disease Performed By: #### 2 4323-8, LIPNF ####[facility] LABCLIA [id number] [address], [facility]95 [place] LDL CHOLESTEROL CALCULATED, NF 54 mg/dL Normal <100 [facility] Comment on above: Order Comment: Roosevelti men Type: BLOOD SPECIMENOrdering Facility: [facility] Address: [address] [place] [address] Result Comment: <100 mg/dL, Optimal 100-129 mg/dL, Near optimal/above optimal 130-159 mg/dL, Borderline high 160-189 mg/dL, High >189 mg/dL, Very high Secondary prevention optimal LDL Cholesterol levels are recommended to be <70 mg/dL LDL cholesterol is calculated using the Bo-NIH equation. Performed By: #### 2 4323-8, LIPNF ####[facility] LABCLIA [id number] [address] [facility] LDL/HDL RATIO, NF 1.54 mg/dL Normal <2.54 [facility] Comment on above: Order Comment: Delia mccoy Type: BLOOD SPECIMENOrdering Facility: [facility] Address: [address] [place] [address] Result Comment: Refe rence: 1. National Cholesterol Education Program ATP III Guideline At-A-Glance Quick Desk Reference: National Heart, Lung, and Blood Redbird. National Institutes of Health. 2001: NIH Publication No. 01-3305. 2. An International Atherosclerosis Society position paper: global recommendations for the management of dyslipidemia: executive summary, Atherosclerosis. 2014: 232(2):410-413. Performed By: #### 2 4323-8, LIPNF ####[facility] LABCLIA [id number] [address] [place] NON HDL CHOL, NF 77 mg/dL Normal <130 [facility] Comment on above: Order Comment: Delia nadine Type: BLOOD SPECIMENOrdering Facility: [facility] Address: [address] [place] [address] Result Comment: <130 mg/dL, Optimal 130-159 mg/dL, Near optimal/above optimal 160-189 mg/dL, Borderline high 190-219 mg/dL, High >219 mg/dL, Very high Secondary prevention optimal non HDL Cholesterol levels are recommended to be <100 mg/dL Performed By: #### 2 4323-8, LIPNF ####[facility] LABCLIA [id number] [address] [address] [place] T CHOL/HDL RATIO NF 3.20 mg/dL Normal <5.10 [facility] Comment on above: Order Comment: Speci men Type: BLOOD SPECIMENOrdering Facility: [facility] Address: [address] [place] [address] Performed By: #### 2 4323-8, LIPNF ####[facility] LABCLIA [id number] [place] [address] [place] TRIGLYCERIDES, NF 131 mg/dL Normal <150 [facility] Comment on above: Order Comment: Speci men Type: BLOOD SPECIMENOrdering Facility: [facility] Address: [address] [place] [address] Result Comment: <150 mg/dL, Normal 150-199 mg/dL, Borderline high 200-499 mg/dL, High >499 mg/dL, Very high Performed By: #### 2 4323-8, LIPNF ####[facility] LABIA [id number] [place] [address] [place] VLDL CHOLESTEROL, NF 19 mg/dL Normal <30 [facility] Comment on above: Order Comment: Speci men Type: BLOOD SPECIMENOrdering Facility: [facility] Address: [address] [place] [address] Performed By: #### 2 4323-8, LIPNF ####[facility] LABCLIA [id number] [place] [id number] [place] [facility] Prostate specific Ag [Mass/Vol] 0.71 ng/mL Normal <2.60 [facility] Comment on above: Order Comment: Speci men Type: BLOOD SPECIMENOrdering Facility: [facility] Address: [address] [place] [address] Result Comment: Tota l PSA test methodology used is the Electrochemiluminescence Immunoassay by [employer]. Total PSA values by differing methodologies cannot be interchanged. Performed By: #### 2 857-1 ####[facility] LABCLIA [id number] [address] [place] [address] [place] Urinalysis complete panel (U )on 04-02-2025 Bacteria LM.HPF (Urine sed) [#/Area] Negative Normal Negative [facility] Comment on above: Order Comment: Speci men Type: URINE SPECIMENOrdering Facility: [facility] Address: [address] [place] [address] Performed By: #### 2 4356-8 ####[facility] LABCLIA [id number] [address], [facility]95 [place] Bilirubin Ql (U) Negative Normal Negative [facility] Comment on above: Order Comment: Speci men Type: URINE SPECIMENOrdering Facility: [facility] Address: [address] [place] [address] Performed By: #### 2 4356-8 ####[facility] LABCLIA [id number] [address], [facility]95 [place] Clarity (Unsp spec) Clear Normal Clear [facility] Comment on above: Order Comment: Speci men Type: URINE SPECIMENOrdering Facility: [facility] Address: [address] [place] [address] Performed By: #### 2 4356-8 ####[facility] LABCLIA [id number] [address] [place] [address] [place] [facility] Color (U) Yellow Normal Yellow [facility] Comment on above: Order Comment: Speci men Type: URINE SPECIMENOrdering Facility: [facility] Address: [address] [place] [address] Performed By: #### 2 4356-8 ####[facility] LABCLIA [id number] [address] [place] [address] [place] Epithelial cells LM.HPF (Urine sed) [#/Area] None Seen Normal [facility] Comment on above: Order Comment: Speci men Type: URINE SPECIMENOrdering Facility: [facility] Address: [address] [place] [address] Performed By: #### 2 4356-8 ####[facility] LABCLIA [id number] [address] [place] [address] [place] Glucose Test strip (U) [Mass/Vol] Negative Normal Negative [facility] Comment on above: Order Comment: Speci men Type: URINE SPECIMENOrdering Facility: [facility] Address: [address] [place] [address] Performed By: #### 2 4356-8 ####[facility] LABCLIA [id number] [address], [facility]95 [place] Hemoglobin Ql (U) Negative Normal Negative [facility] Comment on above: Order Comment: Speci men Type: URINE SPECIMENOrdering Facility: [facility] Address: [address] [place] [address] Performed By: #### 2 4356-8 ####[facility] LABCLIA [id number] [place] [id number] [place] Hyaline casts (Urine sed) [#/Area] 0 /[LPF] Normal 0 /LPF [facility] Comment on above: Order Comment: Speci men Type: URINE SPECIMENOrdering Facility: [facility] Address: [address] [place] [address] Performed By: #### 2 4356-8 ####[facility] LABCLIA [id number] [address] [address] [place] Ketones Ql (U) Negative Normal Negative [facility] Comment on above: Order Comment: Speci men Type: URINE SPECIMENOrdering Facility: [facility] Address: [address] [place] [address] Performed By: #### 2 4356-8 ####[facility] LABCLIA [id number] [facility] [id number] [address] [place] Leukocyte esterase Test strip Ql (U) Negative Normal Negative [facility] Comment on above: Order Comment: Speci men Type: URINE SPECIMENOrdering Facility: [facility] Address: [address] [place] [address] Performed By: #### 2 4356-8 ####[facility] LABCLIA [id number] [address], [place] [address] [place] Nitrite Ql (U) Negative Normal Negative [facility] Comment on above: Order Comment: Speci men Type: URINE SPECIMENOrdering Facility: [facility] Address: [address] [place] [address] Performed By: #### 2 4356-8 ####[facility] LABCLIA [id number] [address], [facility]95 [place] pH (U) 6.0 [pH] Normal 5.0-8.0 [facility] Comment on above: Order Comment: Speci men Type: URINE SPECIMENOrdering Facility: [facility] Address: [address] [place] [address] Performed By: #### 2 4356-8 ####[facility] LABCLIA [id number] [address], [facility]95 [place] Protein (U) [Mass/Vol] Negative Normal Negative Cl [facility] Comment on above: Order Comment: Speci men Type: URINE SPECIMENOrdering Facility: [facility] Address: [address] [place] [address] Performed By: #### 2 4356-8 ####[facility] LABCLIA [id number] [address], [facility]95 [place] RBC LM.HPF (Urine sed) [#/Area] 0-2 /HPF Normal 0-2 /HPF [facility] Comment on above: Order Comment: Speci men Type: URINE SPECIMENOrdering Facility: [facility] Address: [address] [place] [address] Performed By: #### 2 4356-8 ####[facility] LABIA [id number] [place] [id number] [place] Specific gravity (U) [Rel density] 1.014 Normal 1.005-1.030 [facility] Comment on above: Order Comment: Speci men Type: URINE SPECIMENOrdering Facility: [facility] Address: [address] [place] [address] Performed By: #### 2 4356-8 ####[facility] [id number] [place] [id number] [place] Urobilinogen Ql (U) 0.2 EU/dL Normal 0.2-1.0 EU/dL [facility] Comment on above: Order Comment: Speci men Type: URINE SPECIMENOrdering Facility: [facility] Address: [address] [place] [address] Performed By: #### 2 4356-8 ####[facility] [id number] [place] [id number] [place] WBC LM.HPF (Urine sed) [#/Area] 0-5 /HPF Normal 0-5 /HPF [facility] Comment on above: Order Comment: Speci men Type: URINE SPECIMENOrdering Facility: [facility] Address: [address] [place] [address] Performed By: #### 2 4356-8 ####[facility] [id number] [place] [id number] [place] Pulmonary Visit Reporton Pulmonary Visit Report [facility] of [address] [place], [place] [id number] OFFICE VISIT Date of Service: 03/26/25 MR#: [id number] Acct: [id number] Name: COSMEMARY TIARA Rep #: [id number] : 1955 Provider: FERNANDO Ball/Sex: 69/M Location: [facility] Status: Signed Assessment and Plan Assessment and Plan (1) Sleep apnea: Status: Chronic Qualifiers: Sleep apnea type: obstructive Qualified Code(s): G47.33 - Obstructive sleep apnea (adult) (pediatric) Plan: After another lengthy discussion reviewing risks and benefits, the patient has now agreed to proceed with a sleep test. He is willing to try PAP therapy, however since he has failed in the past he also would like to consider the inspire device if appropriate. For this reason, we are pursuing a split-night study. If the patient is diagnosed with sleep apnea and recommendations for therapy are made, I will order the appropriate equipment. The patient is agreeable to trying PAP therapy and following up in 3 months to evaluate his response. I made him aware that it will take 6 to 12 weeks on therapy to notice any benefit. He conveys understanding. I also made it clear that if he is determined to have central sleep apnea, mixed/complex sleep apnea, that the inspire device is not appropriate. Follow-up in the office in 3 months, at which time anticipate he will be on PAP therapy for approximately 6 to 8 weeks. (2) Hypoxia: Status: Chronic Plan: He is using and benefiting from supplemental oxygen. He is encouraged to continue supplemental oxygen as needed to maintain saturation 89 to 92%. He is also encouraged to continue 4 L/min with sleep. (3) Morbid obesity with BMI of 40.0-44.9, adult: Status: Chronic Plan: Complicates exam, plan, care and prognosis. He continues to watch a low-sodium diet, increasing the amount of time spent walking daily on the treadmill or elliptical and monitoring his dietary intake. He continues to be motivated towards weight loss. (4) Restrictive airway disease: Status: Acute Plan: Ground glass opacities not visualized on the CT scan. There is some linear scarring noted. No indication for additional imaging at this time unless symptoms progress. Ordered an albuterol rescue inhaler to be tried for wheezing, chest tightness, shortness of breath or cough that is persistent. At the follow-up visit we will evaluate how frequently the patient to utilize the rescue inhaler and how effective it was. (5) Nasal congestion: Status: Acute Plan: Flonase was not helpful. The patient does admit that when he was discharged from the hospital and was being treated with prednisone, his nasal passages were more open and clear and his rosacea was controlled. I suggested that he follow-up with an ENT to be evaluated for nasal polyps. He was previously established with [facility] and will contact them. Orders: Orders Split Night Sleep Study Today G47.33 - Obstructive sleep apnea (adult) (pediatric) Medications: New albuterol sulfate 90 mcg/actuation (Ventolin HFA) 2 inhalations inhalation Q4H PRN 18 grams 11RF shortness of breath or wheezing Plan Details Additional Comments: This note was generated with [employer] dictation software. It may contain incorrect words, spelling, and punctuation that were not noted in checking the note before signing. I have spent 41 minutes today reviewing labs, records and history. Time includes coordinating care, interpretation of tests. This also includes time I spent with the patient for exam, treatment plan and education as well as documenting clinical information. Follow Up: 3 Months HPI HPI Comments Details: This patient presents to the office today to discuss test results he is ambulatory. He is accompanied today by his . He has not recently been seen in the ED or urgent care for any respiratory illness. He has not required any antibiotics or prednisone for any breathing problems. He does have a greater than 90-myrh-wipg smoking history but successfully quit smoking 15 years ago. He has been compliant with use of supplemental oxygen wearing 2 L/min at rest and 3 L/min on exertion. He continues to exercise on the treadmill or elliptical three times weekly. He is now using 3.5-4 L/min with sleep. He does have shortness of breath on exertion. He denies any cough, sputum production or hemoptysis. He denies any wheezing, chest tightness, chest pain or palpitations. He has not had any fever, chills or body aches. He does report sinus drainage and nasal congestion. The Flonase was not helpful, but he did notice a cold feeling while using it. The patient was previously diagnosed with obstructive sleep apnea 30 years ago, however he is noncompliant. He has daytime hypersomnia. He has 3 episodes of nocturia nightly. He has some (more content not included)... Normal [facility] Chest without Contraston Chest without Contrast [facility] Imaging Services [address] [place] [address] Chest without Contrast MR#: [id number] Acct: [id number] Name: MARY AGUIAR Rep #: [id number] : 1955 M 69 From: Yg bush MD PCP: Dr. Rick Sow MD Status: REG CLI Study: Chest without Contrast Date of Exam: 03/03/25 Exam# [id number] Ordering Dr: Юлия Bermudez NP SEWING MACHINE TESTER-C PROCEDURE: CHEST WITHOUT CONTRAST 03/03/2025 REASON FOR EXAM: SHORTNESS OF BREATH WITH RESTRICTIVE LUNG DISEASE TECHNIQUE: Chest CT without contrast. Coronal and Sagittal reconstruction series were provided. One or more dose reduction techniques were used (e.g., Automated exposure control, adjustment of the mA and/or kV according to patient size, use of iterative reconstruction technique RADIATION DOSE SUMMARY: CTDlvol: 20.13 mGy DLP: 907.95 mGycm COMPARISON: Prior study dated November 02, 2024. FINDINGS: Hardware: None Lymph nodes: Small benign-appearing mediastinal lymph nodes. Heart and Vasculature: Borderline cardiomegaly. Atherosclerotic calcifications of the thoracic aorta. Thoracic aorta and pulmonary arteries have normal contours; noncontrast technique limits evaluation. Coronary Artery Calcifications: Present Lungs and Airways: Mild residual increased linear markings in the lingular segment of the left upper lobe suggestive of scarring. No new infiltration is seen. Pleura: No pleural effusion. Upper Abdomen: Scattered splenic granulomas. Prior cholecystectomy. Bones: Degenerative changes of the thoracic spine. CT/Chest without Contrast IMPRESSION: Coronary artery calcification (CAC) is is present Mild residual increased markings in the lingular segment of the left upper lobe suggestive of linear scarring. Reading Location: [id number] CC: SEWING MACHINE TESTER-C Юлия Bermudez; Dr. Rick Sow MD Marine Safety Officer: Signed Normal [facility] Pulmonary Visit Reporton Pulmonary Visit Report [facility] [place] [address] [place] [address] OFFICE VISIT Date of Service: 02/17/25 MR#: [id number] Acct: [id number] Name: MARY AGUIAR Rep #: [id number] : 1955 Provider: FERNANDO Bermudez Age/Sex: 69/M Location: [facility] Status: Signed Assessment and Plan Assessment and Plan (1) Hypoxia: Status: Chronic Plan: He is using and benefiting from supplemental oxygen. He is encouraged to continue supplemental oxygen as needed to maintain saturation 89 to 92%. He is also encouraged to continue 4 L/min with sleep. (2) Sleep apnea: Status: Chronic Qualifiers: Sleep apnea type: obstructive Qualified Code(s): G47.33 - Obstructive sleep apnea (adult) (pediatric) Plan: Once again, I explained the benefit of treating his sleep apnea. This would be especially helpful with this new irregular heart rhythm he has experienced. The patient is hesitant as he already sampson ffers from nasal congestion when wearing supplemental oxygen. I explained to him that there are new masks, such as an oral hybrid mask that would be very comfortable. He would like to readdress this at the 1 month follow-up. He is going to consider testing in the meantime. (3) Morbid obesity with BMI of 40.0-44.9, adult: Status: Chronic Plan: Complicates exam, plan, care and prognosis. He continues to watch a low-sodium diet, increasing the amount of time spent walking daily and monitoring his dietary intake. He is motivated towards weight loss. He is active on a treadmill and elliptical device several times weekly. (4) Restrictive airway disease: Status: Acute Plan: Deteriorated. The patient has not yet returned to baseline. I am going to repeat a CT of the chest to reevaluate these previously seen groundglass opacities. Return to the office in 1 month to di scuss test results. (5) Nasal congestion: Status: Acute Plan: I suggested that he try a nasal steroid, such as Flonase or Nasacort. The patient is agreeable with this plan. Orders: Orders Chest without Contrast Today R93.89 - Abnormal findings on diagnostic imaging of other specified body structures Plan Details Additional Comments: This note was generated with [employer] software. It may contain incorrect words, spelling, and punctuation that were not noted in checking the note before signing. HPI 3 M FU Chief Complaint: test results HPI Comments Details: This patient presents to the office today to discuss test results he is ambulatory and on supplemental oxygen. He is accompanied today by his . He has not recently been seen in the ED or urgent care for any respiratory illness. He has not required any antibiotics or prednisone for any breathing problems. He does have a greater than 52-cdnj-ymwq smoking history but successfully quit smoking 15 years ago. He has been compliant with use of supplemental oxygen wearing 2 L/min at rest and 3 L/min on exertion. He has now using 4 L/min with sleep. He did try the 5 L/min supplemental oxygen flow with sleep as recommended, however he states it was too high and he was not able to tolerate it. He does suffer from some nasal congestion that inhibits his ability to sleep comfortably with supplemental oxygen on. He does have shortness of breath on exertion. He denies any cough, sputum production or hemoptysis. He denies any wheezing, chest tightness, chest pain or palpitations. He has not had any fever, chills or body aches. He does report sinus drainage and nasal congestion. The patient was previously diagnosed with obstructive sleep apnea 30 years ago, however he is noncompliant. Test results personally viewed the patient: Overnight oximetry completed January 27, 2025. Testing was performed on 4 L/min of supplemental oxygen. Low saturation recorded 85%. Recommendation was made that the patient increase to 5 L/min of supplemental oxygen with sleep. Intake Vital Signs 11/13/24 08:04 02/17/25 08:05 Height 7 ft 1 in 6 ft 1 in Weight: 328 lb BMI 43.2 BP 146/74 H Blood Pressure Location Lt brachial Position Sitting Respiration 18 Pulse 60 Pulse Source Monitor Temp 97.0 F L Temperature Source Temporal Artery Pulse Oximetry (%) 93 Oxygen Delivery Method room air Intake Visit Reasons: [address] Scientist Required: No DME Vendor: Samuel Accompanied by: Is patient in pain?: No Allergies pioglitazone Allergy (Severe, Verified 02/17/25 10:41) SOB dapagliflozin (From [facility]) Allergy (Intermediate, Verified 02/17/25 10:41) Chest tightness lisinopril Adverse Reaction (Verified 02/17/25 10:41) cough Medications ???Medication ???Instructions ???Recorded ???Confirmed ???Type losartan 50 mg tablet 100 mg PO DAILY 10/10/13 08/06/25 History omega-3 fa (more content not included)... Normal [facility] Anion gap in Serum or Plasma Ordered By: Raquel Penny on 01-25-2025 Anion gap [Moles/Vol] 12 mmol/L 11-26 [facility] BUN/creatinine ratioOrdered By: Raquel Penny on 01-25-2025 Urea nitrogen/Creatinine [Mass ratio] 16.0 mg/mg 05-03 [facility] Basic Metabolic Profile (BMP )on 01-25-2025 BUN/CRE 16.0 RATIO Normal 05-03 [facility] Comment on above: Performed By: #### L 501.080 #### [facility] [address] [place], [address] Calcium [Mass/Vol] 9.4 mg/dL Normal 7.6-11.0 [facility] Comment on above: Performed By: #### L 501.080 #### [facility] [address] [place], [address] Chloride [Moles/Vol] 101 mmol/L Normal 98-108 [facility] Comment on above: Performed By: #### L 501.080 #### [facility] [address] [place], [address] CO2 [Moles/Vol] 25.9 mmol/L Normal 21.0-32.0 [facility] Comment on above: Performed By: #### L 501.080 #### [facility] [address] [place], [address] Creatinine [Mass/Vol] 1.01 mg/dL Normal 0.70-1.20 [facility] Comment on above: Performed By: #### L 501.080 #### [facility] [address] [place], [address] GAP 12 Normal 11-26 [facility] Comment on above: Performed By: #### L 501.080 #### [facility] [address] [place], [address] GFR/1.73 sq M.predicted among non-blacks MDRD (S/P/Bld) [Vol rate/Area] 80 mL/min/{1.73_m2} Normal >60 [facility] Comment on above: Result Comment: mL/m in/1.73m2 CKD-EPI Creatinine Equation (2020) Performed By: #### L 501.080 #### [facility] [address] [place], [address] Glucose [Mass/Vol] 118 mg/dL High 70-99 [facility] Comment on above: Performed By: #### L 501.080 #### [facility] [address] [place], [address] Potassium [Moles/Vol] 4.6 mmol/L Normal 3.3-5.1 [facility] Comment on above: Performed By: #### L 501.080 #### [facility] [address] [place], [address] Sodium [Moles/Vol] 138 mmol/L Normal 133-145 [facility] Comment on above: Performed By: #### L 501.080 #### [facility] [address] [place], [address] Urea nitrogen [Mass/Vol] 16 mg/dL Normal 4-19 [facility] Comment on above: Performed By: #### L 501.080 #### [facility] [address] [place], [address] Carbon dioxide, total [Moles /volume] in Central venous bloodOrdered By: Raquel Penny on 01-25-2025 CO2 [Moles/Vol] 25.9 mmol/L 21.0-32.0 [facility] Chloride assayOrdered By: Zachariah Penny on 01-25-2025 Chloride [Moles/Vol] 101 mmol/L 98-108 [facility] Glomerular filtration rate ( GFR) estimation/1.73 sq m using serum, plasma, or whole bOrdered By: Raquel Penny on 01-25-2025 GFR/1.73 sq M.predicted among non-blacks MDRD (S/P/Bld) [Vol rate/Area] 80 mL/min/{1.73_m2} >60 [facility] Comment on above: mL/min/1.73m2 CKD-EP I Creatinine Equation (2020) Potassium measurement (mass/ volume)Ordered By: Raquel Penny on 01-25-2025 Potassium (Unsp spec) [Mass/Vol] 4.6 mmol/L 3.3-5.1 [facility] Serum creatinine measurement (mass/volume)Ordered By: Raquel Penny on 01-25-2025 Creatinine [Mass/Vol] 1.01 mg/dL 0.70-1.20 [facility] Serum glucose measurement (m ass/volume)Ordered By: Raquel Penny on 01-25-2025 Glucose [Mass/Vol] 118 mg/dL High 70-99 [facility] Serum or plasma calcium melva urement (mass/volume)Ordered By: Raquel Penny on 01-25-2025 Calcium [Mass/Vol] 9.4 mg/dL 7.6-11.0 [facility] Serum or plasma urea nitroge n measurement (mass/volume)Ordered By: Raquel Penny on 01-25-2025 Urea nitrogen [Mass/Vol] 16 mg/dL 4-19 [facility] Sodium levelOrdered By: Malia Penny on 01-25-2025 Sodium [Moles/Vol] 138 mmol/L 133-145 [facility] Cardiology Visit Reporton Cardiology Visit Report [facility] [address] [place] [address] OFFICE VISIT Date of Service: 01/14/25 MR#: [id number] Acct: [id number] Name: MARY AGUIAR Rep #: [id number] : 1955 Provider: FERNANDO burger Age/Sex: 69/M Location[place] [facility] [place] Status: Signed HPI HPI History of Present Illness Details: This is a 69-year-old male who presents to the office today for cardiovascular follow-up visit. He was hospitalized in August 2024 with shortness of breath. He was diagnosed with influenza A. CT scan of the chest showed bilateral opacities suggestive of infectious/inflammatory process. His proBNP was within normal limits. Echocardiogram showed normal left ventricular systolic function. From a cardiac standpoint, the patient is doing well. He denies any palpitations, chest pain, pressure or heaviness. He does acknowledge an improvement with his SOB. He denies SOB, Orthopnea, and PND. He does not have bleeding issues; no blood in urine, stool, or nosebleeds. He denies any decrease in energy level, myalgias, or claudication. He does not have edema, or sudden weight gain. He does acknowledge occasional lightheadedness with quick positional changes. He denies dizziness, syncopal or near syncopal episodes, and headaches. Intake Vital Signs 11/16/24 07:34 01/14/25 10:06 Height 6 ft 1 in 6 ft 1 in Weight: 324 lb BMI 42.7 BP 133/68 H Blood Pressure Location Lt brachial Position Sitting Respiration 18 Pulse 63 Pulse Source Monitor Intake Visit Reasons: [address] Scientist Required: No Is patient in pain?: Yes Allergies pioglitazone Allergy (Severe, Verified 01/14/25 10:14) SOB dapagliflozin (From [facility]) Allergy (Intermediate, Verified 01/14/25 10:14) Chest tightness lisinopril Adverse Reaction (Verified 01/14/25 10:14) cough Medications ???Medication ???Instructions ???Recorded ???Confirmed ???Type losartan 50 mg tablet 100 mg PO DAILY 04/23/13 01/14/25 History omega-3 fatty acids 300 mg capsule 300 mg PO DAILY 04/23/13 5 History aspirin 81 mg tablet,delayed 81 mg PO DAILY@0800 11/09/1401/14 History release multivitamin with folic acid 400 1 tab PO DAILY 11/09/14 01/14/25 H istory mcg tablet metformin 500 mg tablet,extended 1,000 mg PO BID 06/29/19 01/14/25 History release 24 hr glimepiride 4 mg tablet 4 mg PO BID 07/05/23 01/14/25 Hist ory amlodipine 10 mg tablet 5 mg PO DAILY 09/16/24 01/14/25 Hi story atorvastatin 20 mg tablet 20 mg PO QDAY 09/16/24 01/14/25 Hi story cyclobenzaprine 10 mg tablet 10 mg PO TID PRN 09/16/24 01/14/25 History furosemide 40 mg tablet 40 mg PO .PRN #30 tabs 01/14/25 Rx spironolactone 25 mg tablet 25 mg PO QDAY #30 tabs 01/14/25 Rx Have you fallen in the past year?: Yes (August-passed out) [facility] Medical History ELEN (acute kidney injury) Venous (peripheral) insufficiency Varicosities of leg Uncontrolled type 2 diabetes mellitus with hyperglycemia Type 2 diabetes mellitus without complication, without long-term current use of insulin Sleep apnea Rosacea Proteinuria due to type 2 diabetes mellitus Plantar fasciitis Palpitations Internal hemorrhoids without mention of complication Hyperlipidemia, mixed Generalized osteoarthritis Foot callus Family history of pancreatic cancer External hemorrhoids without mention of complication Essential hypertension, benign Esophageal reflux Erectile dysfunction Diverticulosis of large intestine Cervicalgia Carpal tunnel syndrome Benign prostatic hyperplasia with urinary frequency Wears glasses High cholesterol Dietary restriction Seasonal allergies Heartburn Former smoker History of stress test Diabetes Hemorrhoids HTN (hypertension) Surgical History History of tonsillectomy History of carpal tunnel release of both wrists History of colonoscopy History of cholecystectomy H/O hernia repair History of vein stripping Family History Father Cancer Mother Diabetes Congestive heart failure Sister Hypertension Pancreatic cancer Brother Hypertension COPD (chronic obstructive pulmonary disease) Social History household members: spouse housing: house current occupational status: retired Smoking Status: Former smoker alcohol intake: never ROS Const Const: Negative for fatigue or weakness Eyes Eyes: Negative for change in vision ENT ENT: Negative for dizziness or balance problems Cardio Chest Pain: No Palpitations: No Edema: None Resp Respiratory: Neg (more content not included)... Normal [facility] Pulmonary Visit Reporton Pulmonary Visit Report [facility] [place] [address] [place] [address] OFFICE VISIT Date of Service: 11/13/24 MR#: [id number] Acct: [id number] Name: MARY AGUIAR Rep #: [id number] : 1955 Provider: FERNANDO Bermudez Age/Sex: 68/M Location: [facility] [place] Status: Signed Assessment and Plan Assessment and Plan (1) Hypoxia: Status: Chronic Plan: He is using and benefiting from supplemental oxygen. Recent walk test indicates that the patient does not require supplemental oxygen when sitting at rest, but he continues to require 2 L/min on exertion. I am performing an overnight oximetry to evaluate the need for supplemental oxygen with sleep. Test results will be discussed by phone. (2) Abnormal chest CT: Status: Acute Plan: The patient is symptomatically and radiographically showing improvement. Continue to monitor symptomatically with a follow-up visit in 3 months. (3) Sleep apnea: Status: Chronic Qualifiers: Sleep apnea type: obstructive Qualified Code(s): G47.33 - Obstructive sleep apnea (adult) (pediatric) Plan: The patient admits it has been 30 years since he was treated for sleep apnea. I explained to him that the technology is much more advanced today, machines are smaller and more quiet. There are multiple different types of masks that are less confining him. I asked the patient to give consideration to treating his sleep apnea as able have positive impact on his blood pressure, risk for stroke or irregular heart rhythm. I will also provide him with support for his heart. I linked compliance with sleep apnea and potentially reducing his hypoxic episodes, allowing him to titrate down supplemental oxygen or potentially be weaned off. He is agreeable to giving this a thought. If the patient decides to proceed with being reevaluated for sleep apnea he would be appropriate for a titration study or split-night study. (4) Morbid obesity with BMI of 40.0-44.9, adult: Status: Chronic Plan: Complicates exam, plan, care and prognosis. The patient is watching a low-sodium diet, increasing the amount of time spent walking daily and monitoring his dietary intake. He is motivated towards weight loss. (5) Restrictive airway disease: Status: Acute Plan: Confirmed on recent PFT. This could be multifactorial, including weight, recent pneumonia with groundglass opacities, possible heart failure given his noted left ventricular hypertrophy. The patient is already eating a low-sodium diet. He is also working on weight loss and has been successful. We will continue to monitor. Orders: Orders OutPt Pulse Ox/Cont Overnight Today R09.02 - Hypoxemia Plan Details Additional Comments: This note was generated with [employer] dictation software. It may contain incorrect words, spelling, and punctuation that were not noted in checking the note before signing. Follow Up: 3 Months ([facility]) HPI 7 WK FU Chief Complaint: Test results HPI Comments Details: This patient presents to the office today to discuss test results he is ambulatory and currently on supplemental oxygen. He is accompanied today by his . He has not recently been seen in the ED or urgent care for any respiratory illness. He has not required any antibiotics or prednisone for any breathing problems. He has been compliant with use of supplemental oxygen wearing 2 L/min at rest and 3 L/min on exertion for the most part. He does admit that most recently he has occasionally ambulated on room air. He also admits to taking a shower without supplemental oxygen in place. He does report that when he checks his saturation after getting out of the shower it is typically 90% on room air. He continues to check his oxygen saturation frequently. He does have shortness of breath, however he believes it is improving. He denies any cough, sputum production or hemoptysis. He denies any wheezing, chest tightness, chest pain or palpitations. He has not had any fever, chills or body aches. He does report sinus drainage and nasal congestion. He does have a greater than 95-auah-kufb smoking history but successfully quit smoking 15 years ago. The patient was previously diagnosed with obstructive sleep apnea 30 years ago, however he is noncompliant. He does snore. He has difficulty with dry mouth. He has nocturia. Test results personally viewed the patient: Walking oximetry completed on October 28, 2024. The patient was able to ambulate a total of 885 feet over the course of 6 minutes. He did desaturate during the fourth minute of ambulation. Recommendation is to utilize 2 L/min of supplemental oxygen on exertion. Pulmonary function test completed on October 30, 2024. Impression is moderate restrictive ventilatory impairment with a preserved diffusing capacity. Chest CT without contrast completed on November 02, 2024 (more content not included)... Normal [facility] CNOVon 11-05-2024 CNOV Office Visit ([facility] ) -- MARY AGUIAR ([id number]) 1955 M Date Time Provider Department 11/05/24 9:20 AM FARZANA KELLY [facility] During your visit today, we recorded the following information about you: Temperature Pulse Respiration Blood pressure 97.6 degrees 68/minute 18/minute 136/60 Weight 148.3 kg Farzana Kelly PA-C 11/05/2024 10:18 AM Signed Chief Complaint Patient presents with: Rash HPI Mary Aguiar is a 68 year old male who presents here today for itching. Pruritus and Rash: - Onset a few days ago, with improvement today. - Described as little welts that come and go, appearing on the back, legs, and other areas. - No new soaps or lotions used; all products are unscented. - Onset occurred saturday - Treated with topical cortisone and anti-itch cream with some relief. - Denies taking any new medications recently. - only thing out of normal routine was a PFT on Saturday. Past medical history, appointments, medications, allergies reviewed. [...] External hemorrhoids without mention of complication 03/08/2005 Family history of pancreatic cancer 04/02/2023 sister Foot callus 04/02/2023 Generalized osteoarthrosis, unspecified site 03/08/2005 History of colonic polyps 10/13/2007 Hyperlipidemia, mixed 07/14/2010 Internal hemorrhoids without mention of complication 03/08/2005 Morbid obesity with BMI of 40.0-44.9, adult ([facility]) 07/06/2010 Palpitations 11/29/2021 Has had for many years Personal history of colonic polyps 2018 Plantar fasciitis 05/02/2018 Proteinuria due to type 2 diabetes mellitus ([facility]) 05/15/2021 Rosacea 03/11/2021 Sleep apnea 09/01/2007 Not using CPAP Stasis dermatitis 07/07/2011 Type 2 diabetes mellitus without complication, without long-term current use of insulin ([facility]) 02/11/2016 Uncontrolled type 2 diabetes mellitus with hyperglycemia ([facility]) 07/28/2021 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 Venous (peripheral) insufficiency 03/08/2005 Previous Surgical History PAST SURGICAL HISTORY Procedure Laterality Date CHOLECYSTECTOMY 2002 Cholecystectomy COLONOSCOPY FLX DX W/COLLJ SPEC WHEN PFRMD 11-21-07 COLONOSCOPY FLX DX W/COLLJ SPEC WHEN PFRMD 06/13/2018 [facility]--Repeat 5 years COLSC FLX W/RMVL OF TUMOR POLYP LESION SNARE TQ 04-23-13 DEBRIDEMENT SUBCUTANEOUS TISSUE 20 SQ CM/< Left 06/27/15 Debridement UIQ left breast infected glenny cyst ENDOVENOUS LASER, 1ST VEIN 11/16/2014 [facility] - see scanned documents ENDOVENOUS LASER, 1ST VEIN 06/05/2015 [facility] - right great saphenous vein NEUROPLASTY AND/TRANSPOS MEDIAN NRV CARPAL TUNNE Carpal tunnel decomp, right STRESS TEST EXERCISE 09/21/2013 Exercise Myocardial Perfusion Stress test TONSILLECTOMY HX under age 10 Family History FAMILY HISTORY Problem Relation Age of Onset Heart Mother CHF, DM Diabetes Mother Cancer Father lung Hypertension Sister Pancreatic Cancer Sister Hypertension Brother COPD Brother Patient Allergies ALLERGIES Allergen Reactions Actos [Pioglitazone] Shortness of Breath Farxiga [Dapagliflo* Other: See Comments tachycardi and felt poorly on it. Lisinopril Cough Current Medications Current Outpatient Medications on File Prior to Visit Medication Sig potassium chloride 20 mEq TbER Take 1 tablet by mouth once daily. atorvastatin (LIPITOR) 20 mg tablet Take 1 tablet by mouth once daily. For cholesterol. furosemide (LASIX) 40 mg tablet Take 1 tablet by mouth once daily. glimepiride (AMARYL) 4 mg tablet Take 1 tab twice a day. losartan (COZAAR) 50 mg tablet Take 2 tablets by mouth once daily. metFORMIN (GLUCOPHAGE) 1,000 mg tablet Take 1 tablet by mouth two times a day with meals. amLODIPine (NORVASC) 10 mg tablet Take 0.5 tablets by mouth once daily. cyclobenzaprine (FLEXERIL) 10 mg tablet Take 1 tablet by mouth three times a day as needed for muscle spasm. blood sugar diagnostic (BLOOD GLUCOSE TEST) test strip Test blood sugar(s) 1-2 times daily. Dx: Type 2 DM - Uncontrolled E11.65 Insulin: No Lancets lancets Test blood sugar(s) 1-2 times daily. Dx: Type 2 DM - Uncontrolled E11.65 Insulin: No Aspirin 81 mg tab Take 1 tablet by mouth once daily. Take with food. Meridian-3 Fatty Acids-Vitamin E (FISH OIL) 1,000 mg cap Take 1 capsule by mouth once daily. MULTI-VITAMIN ORAL Take by (more content not included)... Normal [facility] Chest without Contraston Chest without Contrast [facility] Imaging Services [address] [place] [id number] Chest without Contrast MR#: [id number] Acct: [id number] Name: MARY AGUIAR Rep #: [id number] : 1955 M 68 From: Yg bush MD PCP: Dr. Rick Sow MD Status: REG CLI Study: Chest without Contrast Date of Exam: 11/02/24 Exam# [id number] Ordering Dr: Юлия Bermudez SEWING MACHINE TESTER SEWING MACHINE TESTER-C PROCEDURE: CHEST WITHOUT CONTRAST 11/02/2024 REASON FOR EXAM: GROUNDGLASS PNEUMONIA TECHNIQUE: Chest CT without contrast. Coronal and Sagittal reconstruction series were provided. One or more dose reduction techniques were used (e.g., Automated exposure control, adjustment of the mA and/or kV according to patient size, use of iterative reconstruction technique RADIATION DOSE SUMMARY: CTDlvol: 20.15 mGy DLP: 775.38 mGycm COMPARISON: Comparison is made with prior study dated August 15, 2024. FINDINGS: Hardware: None Lymph nodes: Subcentimeter scattered mediastinal lymph nodes. Heart and Vasculature: Atherosclerotic calcifications of the thoracic aorta. Thoracic aorta and pulmonary arteries have normal contours; noncontrast technique limits evaluation. Coronary Artery Calcifications: Present Lungs and Airways: Since prior study, there has been improved aeration in the scattered ground-glass appearance infiltrates in the left lung. Mild degree of residual changes seen in the posterior aspect of the left upper lobe abutting the left major fissure. The previously seen infiltrates in the left lower lobe have resolved. Pleura: Unremarkable Upper Abdomen: Status post cholecystectomy. Scattered calcified granulomas. Bones: Degenerative changes of the thoracic spine. CT/Chest without Contrast IMPRESSION: Coronary artery calcification (CAC) is is present Interval improvement in the aeration in the left hemithorax with residual atelectasis and/or infiltrate in the posterior aspect of the left upper lobe. Reading Location: [place] [address] CC: SEWING MACHINE TESTER-C Юлия Bermudez; Dr. Rick Sow MD Marine Safety Officer: Signed Normal [facility] 6 Minute Walk Teston 025 6 Minute Walk Test y [facility] Pulmonary Services/Neurology [address] [place] [address] MR#: [id number] Acct: [id number] Name: MARY AGUIAR Rep #: [id number] : 1955 68 From: Edd Perez DO Referring Dr: Юлия Bermudez NP SEWING MACHINE TESTER-C Status: REG CLI Location: PSN Date: Sex: M C PSN 6 Minute Walk Test 6 Minute Walk Test 6 Minute Walk Test: 6 Minute Walk Test PSN:6-Minute Walk Test Start: 10/28/24 13:23 Freq: Status: Active Protocol: [id number] Document 10/28/24 12:38 WLB (Rec: 10/28/24 13:31 WLB [id number]) 6 Minute Walk Test Date Performed 10/28/24 Time Performed 12:38 Height 7 ft 1 in Weight: 320 lb Weight in Pounds 320.[address]: LARA Assistive device None used: Pre-test Oxygen Delivery Room Air Method Pulse Ox (%) 92 Pulse Rate (60-100 79 beats/min) Dyspnea Disha Scale ( 2 0-10) Exertion Disha Scale 6 (6-20) 1st minute Oxygen Delivery Room Air Method Pulse Ox (%) 92 Pulse Rate (60-100 79 beats/min) 2nd minute Oxygen Delivery Room Air Method Pulse Ox (%) 91 Pulse Rate (60-100 84 beats/min) 3rd minute Oxygen Delivery Room Air Method Pulse Ox (%) 89 Pulse Rate (60-100 93 beats/min) Reported Symptoms Increased Work of Breathing 4th minute Oxygen Delivery Room Air Method Pulse Ox (%) 88 Pulse Rate (60-100 93 beats/min) Reported Symptoms Increased Work of Breathing 5th minute Oxygen Flow Rate (L/ 2 min) (L/min) Oxygen Delivery Nasal Cannula Method Pulse Ox (%) 90 Pulse Rate (60-100 103 H beats/min) Reported Symptoms Increased Work of Breathing 6th minute Oxygen Flow Rate (L/ 2 min) (L/min) Oxygen Delivery Nasal Cannula Method Pulse Ox (%) 91 Pulse Rate (60-100 84 beats/min) Reported Symptoms Increased Work of Breathing Post-test Oxygen Delivery Room Air Method Pulse Ox (%) 92 Pulse Rate (60-100 79 beats/min) Dyspnea Disha Scale ( 2 0-10) Exertion Disha Scale 6 (6-20) Full Laps Walked 15 Partial Lap, Number 0 of Tiles Walked Total Distance 885 Walked (ft) 10/28/24 12:38 (created 10/28/24 13:28) Cardiopulmonary Services by Prema Barrett Pt was put on his 2lpm pulse dose oxygen machine @4minutes. Pt wears 2lpm pulse dose at rest and 3lpm pulse dose with exercise. Initialized on 10/28/24 13:28 - END OF NOTE Interpretation Interpretation: The patient ambulated 885 feet over the course of 6 minutes beginning on room air without assistive devices. Pretesting oxygen saturation was noted to be 92% on room air. With ambulation, the guzman oxygen saturation was 88%. 2 L/min of supplemental oxygen was applied, and the patient was able to complete the remainder of the test while maintaining appropriate saturations. Recommendations Recommendations: 2 L/min of supplemental oxygen should be utilized with exertion. 10/29/24 1236 Date Edd Perez DO CC: Date Dictated: 10/29/24 1236 Date Transcribed: 10/29/24 1236 Marine Safety Officer: Dr. Edd Perez DO Signed Normal [facility] Cardiovascular stress test r eportOrdered By: Melinda Cifuentes on 10-19-2024 Study report [facility] Cardiovascular Services [address] [place] [address] MR#: [id number] Acct: [id number] Name: MARY AGUIAR Rep #: [id number] : 1955 68 From: Melinda Cifuentes MD Primary Care: Dr. Rick Sow MD Stat [facility]: [facility] Referring Dr: Melinda Cifuentes MD Sex: M C Stress Test Report Date: 10/16/2024 Procedure: Pharmacologic stress nuclear imaging study Indications: Dyspnea on exertion Consent: Per the patient Procedure: The patient underwent pharmacologic (Regadenoson 0.4mg ) evaluation with a peak heart rate of 110 beats per minute (73%predicted maximal heart rate) and a peak blood pressure of 170/70 mmHg. The baseline ECG demonstrated sinus rhythm with occasional PVCs. The peak pharmacologic ECG shows no diagnostic ischemic changes. Occasional PVCs pretest, frequent PVCs during pharmacologic infusion and in recovery. There was no complaint of chest discomfort during pharmacologic infusion or recovery. The patient was injected with 14.9 millicuries of technetium 99m Cardiolite and subsequently rest SPECT Cardiolite nuclear imaging was obtained in the horizontal long, vertical long, and short axis views. The patient underwent pharmacologic (Regadenoson) evaluation. The patient was injected with 44.5 millicuries of technetium 99m Cardiolite and subsequently stress SPECT Cardiolite nuclear imaging was obtained in the horizontal long, vertical long, and short axis views. A gated Cardiolite study at peak stress was obtained. The examination was stopped secondary to completion of protocol. Rest and stress SPECT Cardiolite nuclear imaging status post realignment, normalization, and attenuation correction demonstrate no fixed or reversible perfusion defects. There is end systolic thickening and brightening. The gatedCardiolite study demonstrates myocardial thickening and inward wall motion. Thereported LVEF is 63%. Impression: 1. Pharmacologic (Regadenoson) evaluation 2. Peak pharmacologic ECG with no diagnostic ischemic changes. 3. Occasional PVCs noted pretest. Frequent PVCs during pharmacologic infusion and in recovery. 5. Rest and stress SPECT Cardiolite nuclear imaging demonstrate relative uniform tracer uptake and myocardial perfusion appearing within normal limits. 6. The gated Cardiolite study reports an LVEF of 63%. This note was generated with Scientific Mediaation software. It may contain incorrectwords, spelling, and punctuation that were not noted in checking the note beforesigning. 10/19/24906 Date _ Melinda Cifuentes MD CC: Dr. Melinda Cifuentes MD; Dr. Rick Sow MD ~ Date Dictated: 10/19/24902 Date Transcribed: 10/19/24902 Marine Safety Officer: LETTY Solis [facility] Work Phone: Stress Reporton 10-19-2024 Stress Report [facility] Cardiovascular Services [address] [place] [address] MR#: [id number] Acct: [id number] Name: MARY AGUIAR Rep #: [id number] : 1955 68 From: Melinda Cifuentes MD Primary Care: Dr. Rick Sow MD Status: REG CLI Referring Dr: Melinda Cifuentes MD Sex: M C Stress Test Report Date: 10/16/2024 Procedure: Pharmacologic stress nuclear imaging study Indications: Dyspnea on exertion Consent: Per the patient Procedure: The patient underwent pharmacologic (Regadenoson 0.4mg ) evaluation with a peak heart rate of 110 beats per minute (73%predicted maximal heart rate) and a peak blood pressure of 170/70 mmHg. The baseline ECG demonstrated sinus rhythm with occasional PVCs. The peak pharmacologic ECG shows no diagnostic ischemic changes. Occasional PVCs pretest, frequent PVCs during pharmacologic infusion and in recovery. There was no complaint of chest discomfort during pharmacologic infusion or recovery. The patient was injected with 14.9 millicuries of technetium 99m Cardiolite and subsequently rest SPECT Cardiolite nuclear imaging was obtained in the horizontal long, vertical long, and short axis views. The patient underwent pharmacologic (Regadenoson) evaluation. The patient was injected with 44.5 millicuries of technetium 99m Cardiolite and subsequently stress SPECT Cardiolite nuclear imaging was obtained in the horizontal long, vertical long, and short axis views. A gated Cardiolite study at peak stress was obtained. The examination was stopped secondary to completion of protocol. Rest and stress SPECT Cardiolite nuclear imaging status post realignment, normalization, and attenuation correction demonstrate no fixed or reversible perfusion defects. There is end systolic thickening and brightening. The gated Cardiolite study demonstrates myocardial thickening and inward wall motion. The reported LVEF is 63%. Impression: 1. Pharmacologic (Regadenoson) evaluation 2. Peak pharmacologic ECG with no diagnostic ischemic changes. 3. Occasional PVCs noted pretest. Frequent PVCs during pharmacologic infusion and in recovery. 5. Rest and stress SPECT Cardiolite nuclear imaging demonstrate relative uniform tracer uptake and myocardial perfusion appearing within normal limits. 6. The gated Cardiolite study reports an LVEF of 63%. This note was generated with Scientific Mediaation software. It may contain incorrect words, spelling, and punctuation that were not noted in checking the note before signing. 10/19/24906 Date Melinda Cifuentes MD CC: Dr. Melinda Cifuentes MD; Dr. Rick Sow MD Date Dictated: 10/19/24902 Date Transcribed: 10/19/24902 Marine Safety Officer: LETTY Haynes [facility] CNOVon 10-05-2024 CNOV Office Visit (FAMPWS ) -- MARY AGUIAR ([id number]) 1955 M Date Time Provider Department 10/05/24 11:40 AM FARZANA KELLY During your visit today, we recorded the following information about you: Temperature Pulse Respiration Blood pressure 98 degrees 86/minute 18/minute 118/82 Weight 147.9 kg Farzana Kelly PA-C 10/05/2024 12:57 PM Signed Chief Complaint Patient presents with: 6 Month Exam HPI Mary Aguiar is a 68 year old male who presents here today for Chronic Medical Conditions.. Patient with hx of HTN, DM2, hyperlipidemia, former smoker, obesity, CATHERINE, rosacea, OA, nenita insufficiency, and those as below. Pneumonia: - Recent hospitalization for pneumonia. - Reports improvement in symptoms; able to breathe well. - Follow-up with senior sales assistant; recommended nocturnal oxygen monitoring. - Denies current dyspnea. Cardiac Evaluation: - Recent cardiology consultation; social work instructor attributed cardiac symptoms to pneumonia. - Nuclear stress test ordered; not yet scheduled. - Advised to continue Lasix until next cardiology appointment in 3 months. - Denies current peripheral edema. Diabetes Mellitus: - Recent A1c increased to 7.1 from 6.6 in March. - Recent steroid use during hospitalization. - Monitors blood glucose levels regularly; readings mostly in the 120s-130s. - Denies current changes in diet or medication regimen. Hypertension: - Takes antihypertensive medication in the morning. - Home blood pressure readings mostly in the 120s-130s/70s. - Denies current headaches or dizziness. Past medical history, appointments, medications, allergies reviewed. [...] External hemorrhoids without mention of complication 03/08/2005 Family history of pancreatic cancer 04/02/2023 sister Foot callus 04/02/2023 Generalized osteoarthrosis, unspecified site 03/08/2005 History of colonic polyps 10/13/2007 Hyperlipidemia, mixed 07/14/2010 Internal hemorrhoids without mention of complication 03/08/2005 Morbid obesity with BMI of 40.0-44.9, adult ([facility]) 07/06/2010 Palpitations 11/29/2021 Has had for many years Personal history of colonic polyps 2018 Plantar fasciitis 05/02/2018 Proteinuria due to type 2 diabetes mellitus ([facility]) ([facility]) 05/15/2021 Rosacea 03/11/2021 Sleep apnea 09/01/2007 Not using CPAP Stasis dermatitis 07/07/2011 Type 2 diabetes mellitus without complication, without long-term current use of insulin ([facility]) 02/11/2016 Uncontrolled type 2 diabetes mellitus with hyperglycemia ([facility]) 07/28/2021 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 Venous (peripheral) insufficiency 03/08/2005 Previous Surgical History PAST SURGICAL HISTORY Procedure Laterality Date CHOLECYSTECTOMY 2003 Cholecystectomy COLONOSCOPY FLX DX W/COLLJ SPEC WHEN PFRMD 11-21-07 COLONOSCOPY FLX DX W/COLLJ SPEC WHEN PFRMD 06/13/2018 [facility]Michael De And[facility]--Repeat 5 years COLSC FLX W/RMVL OF TUMOR POLYP LESION SNARE TQ 04-23-13 DEBRIDEMENT SUBCUTANEOUS TISSUE 20 SQ CM/< Left 06/27/15 Debridement UIQ left breast infected glenny cyst ENDOVENOUS LASER, 1ST VEIN 11/16/2014 [facility] - see scanned documents ENDOVENOUS LASER, 1ST VEIN 06/05/2015 [facility] - right great saphenous vein NEUROPLASTY AND/TRANSPOS MEDIAN NRV CARPAL TUNNE Carpal tunnel decomp, right STRESS TEST EXERCISE 09/21/2013 Exercise Myocardial Perfusion Stress test TONSILLECTOMY HX under age 12 Family History FAMILY HISTORY Problem Relation Age of Onset Heart Mother CHF, DM Diabetes Mother Cancer Father lung Hypertension Sister Pancreatic Cancer Sister Hypertension Brother COPD Brother Patient Allergies ALLERGIES Allergen Reactions Actos [Pioglitazone] Shortness of Breath Farxiga [Dapagliflo* Other: See Comments tachycardi and felt poorly on it. Lisinopril Cough Current Medications Current Outpatient Medications on File Prior to Visit Medication Sig potassium chloride 20 mEq TbER Take 1 tablet by mouth once daily. furosemide (LASIX) 40 mg tablet Take 1 tablet by mouth once daily. amLODIPine (NORVASC) 10 mg tablet Take 0.5 tablets by mouth once daily. cyclobenzaprine (FLEXERIL) 10 mg tablet Take 1 tablet by mouth three times a day as needed for muscle spasm. atorvastatin (LIPITOR) 20 mg tablet Take 1 tablet by mouth once daily. For cholesterol. (more content not included)... Normal [facility] Cardiology Visit Reporton Cardiology Visit Report [facility] [address] [place] [address] OFFICE VISIT Date of Service: 09/24/24 MR#: [id number] Acct: [id number] Name: MARY AGUIAR Rep #: [id number] : 1955 Provider: Dr. Melinda Cifuentes MD Age/Sex: 68/M Location: [facility] [email or web address] Status: Signed HPI HPI History of Present Illness Details: This gentleman has been referred to us from his recent hospitalization. He was hospitalized last month with shortness of breath. He was diagnosed with influenza A. CT scan of the chest showed bilateral opacities suggestive of infectious/inflammatory process. His proBNP was within normal limits. Echocardiogram showed normal left ventricular systolic function. Since his discharge from the hospital, patient has been feeling better however he remains hypoxic and is on 24-hour supplemental oxygen therapy. Denies any chest pains. Shortness of breath with exertion which has been improving. Per patient, even before his illness, he had been experiencing some shortness of breath with exertion. Denies orthopnea or PND. He has history of varicose veins status post venous stripping procedure and wears compression stockings. Denies any palpitations. Intake Vital Signs 08/17/24 09:29 09/16/24 16:30 09/24/24 09:56 Height 6 ft 1 in 6 ft 1 in Weight: 323 lb 324 lb BMI 42.7 BP 121/69 H Blood Pressure Location Lt brachial Position Sitting Respiration 18 Pulse 62 Pulse Source NIBP Pulse Oximetry (%) 93 Oxygen Delivery Method nasal canula Oxygen Flow Rate (L/min) 2 Intake Visit Reasons: S/P ([facility] 08/15/24) Rd Scientist Required: No Accompanied by: Is patient in pain?: No Allergies pioglitazone Allergy (Severe, Verified 09/24/24 11:16) SOB dapagliflozin (From [facility]) Allergy (Intermediate, Verified 09/24/24 11:16) Chest tightness lisinopril Adverse Reaction (Verified 09/24/24 11:16) cough Medications ???Medication ???Instructions ???Recorded ???Confirmed ???Type hydrochlorothiazide 25 mg tablet 25 mg PO DAILY 04/23/13 09/23/24 H istory Held on 08/19/24. Instructions: Hold it while patient is taking furosemide losartan 50 mg tablet 100 mg PO DAILY 04/23/13 09/23/24 History omega-3 fatty acids 300 mg capsule 300 mg PO DAILY 04/23/13 5 History aspirin 81 mg tablet,delayed 81 mg PO DAILY@0800 11/09/1409/23 History release multivitamin with folic acid 400 1 tab PO DAILY 11/09/14 09/23/24 H istory mcg tablet metformin 500 mg tablet,extended 1,000 mg PO BID 06/29/19 09/23/24 History release 24 hr glimepiride 4 mg tablet 4 mg PO BID 07/05/23 09/23/24 Hist ory furosemide 40 mg tablet 40 mg PO DAILY 14 days #14 tabs 09/23/24 Rx potassium chloride 20 mEq 20 meq PO DAILY 1 month #30 tabs 0 08/19/24 09/23/24 Rx tablet,extended release amlodipine 10 mg tablet 5 mg PO DAILY 09/16/24 09/24/24 Hi story atorvastatin 20 mg tablet 20 mg PO QDAY 09/16/24 09/23/24 Hi story cyclobenzaprine 10 mg tablet 10 mg PO TID PRN 09/16/24 09/23/24 History Ejection fraction %: 65 Have you fallen in the past year?: No [facility] Medical History (Updated 09/24/24 @ 11:[address] Melinda Cifuentes MD) ELEN (acute kidney injury) Venous (peripheral) insufficiency Varicosities of leg Uncontrolled type 2 diabetes mellitus with hyperglycemia Type 2 diabetes mellitus without complication, without long-term current use of insulin Sleep apnea Rosacea Proteinuria due to type 2 diabetes mellitus Plantar fasciitis Palpitations Internal hemorrhoids without mention of complication Hyperlipidemia, mixed Generalized osteoarthritis Foot callus Family history of pancreatic cancer External hemorrhoids without mention of complication Essential hypertension, benign Esophageal reflux Erectile dysfunction Diverticulosis of large intestine Cervicalgia Carpal tunnel syndrome Benign prostatic hyperplasia with urinary frequency Wears glasses High cholesterol Dietary restriction Seasonal allergies Heartburn Former smoker History of stress test Diabetes Hemorrhoids HTN (hypertension) Surgical History History of tonsillectomy History of carpal tunnel release of both wrists History of colonoscopy History of cholecystectomy H/O hernia repair History of vein stripping Family History Father Cancer Mother Diabetes Congestive heart failure Sister Hypertension Pancreatic cancer Brother Hypertension COPD (chronic obstructive pulmonary disease) Social History household members: spouse housing: house current occupational status: retired Smoking Status: Former smoker (more content not included)... Normal [facility] Pulmonary Visit Reporton Pulmonary Visit Report [facility] [place] [address] [place] [address] OFFICE VISIT Date of Service: 09/23/24 MR#: [id number] Acct: [id number] Name: MARY AGUIAR Rep #: [id number] : 1955 Provider: FERNANDO Bermudez Age/Sex: 68/M [place] [facility] [place] Status: Signed Assessment and Plan Assessment and Plan (1) Shortness of breath: Status: Acute Plan: Of unclear etiology. Likely multifactorial. The patient does have significant smoking history. He also has an elevated BMI with a protuberant abdomen. We will proceed with ordering a pulmonary function test for clarification and quantification of disease. I am also ordering a 6-minute walk test to evaluate the patient for ongoing exertional hypoxia. Follow-up in the office once test results are available for review. I am not ordering any inhalers until the PFT is available for review. The patient conveys understanding and is agreeable with this plan. (2) Abnormal chest CT: Status: Acute Plan: Repeat CT of the chest in [address] Evaluating for improvement of groundglass opacities, indicating that it was related to pneumonia. However, if abnormality persists we will evaluate the frequency of interval imaging that is necessary. The patient does have a significant smoking history so is at higher risk for lung cancer. (3) Sleep apnea: Status: Chronic Qualifiers: Sleep apnea type: obstructive Qualified Code(s): G47.33 - Obstructive sleep apnea (adult) (pediatric) Comment: not using CPAP Plan: Deteriorated. Lengthy discussion today with the patient about the deleterious effects of untreated sleep apnea. I discussed with the patient that he is at higher risk for heart attack, stroke and an irregular heart rate, in addition to other health problems. He conveys understanding. He is going to consider participating in a repeat titration study. He states that he would just like to focus on getting well first. This will be discussed again at the follow-up visit. I did suggest that he would benefit from evaluation and management of his obstructive sleep apnea, noting that he would have improved quality of life and rebound from this most recent illness quicker. (4) Morbid obesity with BMI of 40.0-44.9, adult: Status: Chronic Plan: Complicates exam, plan, care and prognosis. The patient is watching a low-sodium diet, walking daily and monitoring his dietary intake. He is motivated towards weight loss and has already lost 20 pounds. (5) Hypoxia: Status: Acute Plan: Unclear if this is acute or chronic. He is benefiting from supplemental oxygen. He is using it with rest, on ambulation and with sleep. We will perform a nocturnal oximetry on 2 L/min of supplemental oxygen to evaluate if the patient is on the appropriate liter flow. Test results can be discussed by phone. Also performing a pulmonary stress test to give the patient insight into how much supplemental oxygen is necessary on ambulation. These test results can be discussed by phone once available as well. Orders: Orders Chest without Contrast 10/13/24 R93.89 - Abnormal findings on diagnostic imaging of other specified body structures Simple Pulmonary Exercise Test 10/28/24 R06.02 - Shortness of breath PFT Complete - DLCO, Spirometry b/a bronchodilators, lung volumes 10/30/24 R06.02 - Shortness of breath HPI Hospital FU Chief Complaint: shortness of breath HPI Comments Details: This patient presents to the office today for hospital follow-up after recent hospitalization at [facility] from August 15 through August 19, 2024 for bacterial pneumonia on influenza A. She is ambulatory and currently on supplemental oxygen. He is accompanied today by his . He was initially seen in an urgent care and diagnosed with influenza A. Unfortunately, after he went home he passed out. EMS found him to have an oxygen saturation of 79%. He was reporting a productive cough and had a low-grade fever of 100.2. Initial presentation the patient had tachycardia and tachypnea. CTA was negative for pulmonary embolism but did show opacities in the left lower lobe with mild groundglass attenuation in the right middle lobe, likely infectious inflammatory. Patient was treated with IV vancomycin and Zosyn. He was treated with a short course of azithromycin and Tamiflu. Upon hospital discharge she was to complete 2 additional days of the azithromycin and Tamiflu. The patient did qualify for supplemental oxygen on discharge, it was recommended that he use 2 L/min at rest and 3 L/min on exertion. He has been compliant with use of supplemental oxygen wearing 2 L/min at rest and 3 L/min on exertion for the most part. He does admit that most recently he has occasionally ambulated on room air. He checks his oxygen saturation frequently. He st (more content not included)... Normal [facility] ALBUMIN/CREATININE RATIO, UR INEon 09-03-2024 Albumin DL <= 20 mg/L (U) [Mass/Vol] mg/dL Normal [facility] Comment on above: Order Comment: Delia mccoy Type: BLOOD SPECIMEN Ordering Facility: [facility] Address: [address] [id number] Performed By: #### 2 4321-2 #### [facility] CLIA [id number] [address] [place] [address] [place] Albumin/Creatinine (U) [Mass ratio] <15 Normal <30 [facility] Comment on above: Order Comment: Delia mccoy Type: BLOOD SPECIMEN Ordering Facility: [facility] Address: [address] [place] [address] Result Comment: Adul t Male and Female Nephrotic Criteria: <30 mg/g is considered normal to mildly increased 30-300 mg/g is considered moderately increased >300 mg/g is considered severely increased KDIGO. (2013). KDIGO 2012 Clinical Practice Guideline for the Evaluation and Management of Chronic Kidney Disease. Official Journal of the International Society of Nephrology, 3(1), 1-150. Performed By: #### 2 4321-2 #### [facility] CLIA [id number] [address] [place] Creatinine (U) [Mass/Vol] 79.2 mg/dL Normal 20.0-300.0 [facility] Comment on above: Order Comment: Speci men Type: BLOOD SPECIMEN Ordering Facility: [facility] Address: [address] [place] [address] Performed By: #### 2 4321-2 #### [facility] CLIA [id number] [address] [id number] [place] Basic metabolic 2000 panelon 09-03-2024 Anion gap [Moles/Vol] 11 mmol/L Normal 8-15 [facility] Comment on above: Order Comment: Speci men Type: BLOOD SPECIMENOrdering Facility: [facility] Address: [address] [place] [address] Performed By: #### L IPNF, 66300-1 ####[facility] LABCLIA [id number] [place] [address] [place] Calcium [Mass/Vol] 9.2 mg/dL Normal 8.5-10.2 [facility] Comment on above: Order Comment: Speci men Type: BLOOD SPECIMENOrdering Facility: [facility] Address: [address] [place] [address] Performed By: #### L IPNF, 74566-9 ####[facility] LABCLIA [id number] [place] [id number] [place] Chloride [Moles/Vol] 100 mmol/L Normal 98-107 [facility] Comment on above: Order Comment: Speci men Type: BLOOD SPECIMENOrdering Facility: [facility] Address: [address] [place] [address] Performed By: #### L IPNF, 13112-4 ####[facility] LABCLIA [id number] [place] [address] [place] CO2 [Moles/Vol] 28 mmol/L Normal 22-30 [facility] Comment on above: Order Comment: Speci men Type: BLOOD SPECIMENOrdering Facility: [facility] Address: [address] [place] [address] Performed By: #### L IPWILLA, 81628-4 ####[facility] LABCLIA [id number] [place] [address] [place] Creatinine [Mass/Vol] 0.94 mg/dL Normal 0.73-1.22 [facility] Comment on above: Order Comment: Speci men Type: BLOOD SPECIMENOrdering Facility: [facility] Address: [address] [place] [address] Performed By: #### L IPWILLA, 68263-4 ####[facility] LABCLIA [id number] [place] [address] [place] Creatinine and Glomerular filtration rate.predicted panel (S/P/Bld) 87 mL/min/1.73m??? Normal >=60 [facility] Comment on above: Order Comment: Speci men Type: BLOOD SPECIMENOrdering Facility: [facility] Address: [address] [place] [address] Result Comment: Angeline mated Glomerular Filtration Rate (eGFR) is calculated using the 2020 CKD-EPI creatinine equation. This equation utilizes serum creatinine, sex, and age as parameters. The creatinine assay has traceable calibration to isotope dilution-mass spectrometry. Refer to KDIGO guidelines for clinical interpretation. In patients with unstable renal function, e.g. those with acute kidney injury, the eGFR may not accurately reflect actual GFR. Performed By: #### L IPNF, 93262-6 ####[facility] LABCLIA [id number] [place] [address] [place] Glucose [Mass/Vol] 142 mg/dL High 74-99 [facility] Comment on above: Order Comment: Speci men Type: BLOOD SPECIMENOrdering Facility: [facility] Address: [address] [place] [address] Result Comment: The [place] Diabetes Association (ADA) provides guidance for cutoff values for fasting glucose and random glucose. The ADA defines fasting as no caloric intake for at least 8 hours. Fasting plasma glucose results between 100 to 125 mg/dL indicate increased risk for diabetes (prediabetes). Fasting plasma glucose results greater than or equal to 126 mg/dL meet the criteria for diagnosis of diabetes. In the absence of unequivocal hyperglycemia, results should be confirmed by repeat testing. In a patient with classic symptoms of hyperglycemia or hyperglycemic crisis, random plasma glucose results greater than or equal to 200 mg/dL meet the criteria for diagnosis of diabetes. Reference: Standards of Medical Care in Diabetes 2016, [place] Diabetes Association. Diabetes Care. 2016.39(Suppl 1). Performed By: #### L KUN, 28076-9 ####[facility] LABCLIA [id number] [place] [address] [place] Potassium [Moles/Vol] 4.3 mmol/L Normal 3.7-5.1 [facility] Comment on above: Order Comment: Delia men Type: BLOOD SPECIMENOrdering Facility: [facility] Address: [address] [place], [place] [id number] Performed By: #### L KUN, 78391-5 ####[facility] LABCLIA [id number] [place] [address] [place] Sodium [Moles/Vol] 139 mmol/L Normal 136-144 [facility] Comment on above: Order Comment: Speci men Type: BLOOD SPECIMENOrdering Facility: [facility] Address: [address] [place] [address] Performed By: #### L KUN, 32692-4 ####[facility] LABCLIA [id number] [place] [address] [place] Urea nitrogen [Mass/Vol] 10 mg/dL Normal 9-24 [facility] Comment on above: Order Comment: Speci men Type: BLOOD SPECIMENOrdering Facility: [facility] Address: [address] [place] [address] Performed By: #### L IPNF, 49284-4 ####[facility] LABIA [id number] [place] [address] [place] HbA1c (Bld)on 09-03-2024 Average glucose Estimated from glycated hemoglobin (Bld) [Mass/Vol] 157 mg/dL Normal [facility] Comment on above: Order Comment: Delia mccoy Type: BLOOD SPECIMENOrdering Facility: [facility] Address: [address] [place] [address] Result Comment: eAG: (Estimated average glucose) is a calculated value from HgbA1c and is accounts receivable representative of the average blood glucose level in the last 2-3 month period. Performed By: #### 5 5454-3 ####[facility] [id number] [address] STATES OF [facility] HbA1c (Bld) [Mass fraction] 7.1 % High 4.3-5.6 [facility] Comment on above: Order Comment: Delia mccoy Type: BLOOD SPECIMENOrdering Facility: [facility] Address: [address] [place] [address] Result Comment: Amer [place] Diabetes Association guidelines indicate that patients with HgbA1c in the range 5.7-6.4% are at increased risk for development of diabetes, and intervention by lifestyle modification may be beneficial. HgbA1c greater or equal to 6.5% is considered diagnostic of diabetes. Performed By: #### 5 5454-3 ####[facility] LABIA [id number] [place] [address] [place] LIPID PANEL, NONFASTINGon Cholesterol [Mass/Vol] 119 mg/dL Normal <200 Cl [facility] Comment on above: Order Comment: Delia mccoy Type: BLOOD SPECIMENOrdering Facility: [facility] Address: [address] [place] [address] Result Comment: <200 mg/dL, Desirable 200-239 mg/dL, Borderline high >239 mg/dL, High Performed By: #### L IPNF, 08028-8 ####[facility] LABCLIA [id number] [address] OF [facility] HDL CHOLESTEROL, NF 39 mg/dL Low >39 [facility] Comment on above: Order Comment: Roosevelti nadine Type: BLOOD SPECIMENOrdering Facility: [facility] Address: [address] [place] [address] Result Comment: 40-5 9 mg/dL, Acceptable >59 mg/dL, High: Negative risk factor for coronary heart disease <40 mg/dL, Low: Positive risk factor for coronary heart disease Performed By: #### L IPNF, 52698-2 ####[facility] LABCLIA [id number] [address] LDL CHOLESTEROL, NF 43 mg/dL Normal <100 [facility] Comment on above: Order Comment: Delia men Type: BLOOD SPECIMENOrdering Facility: [facility] Address: [address] [place] [address] Result Comment: <100 mg/dL, Optimal 100-129 mg/dL, Near optimal/above optimal 130-159 mg/dL, Borderline high 160-189 mg/dL, High >189 mg/dL, Very high Secondary prevention optimal LDL Cholesterol levels are recommended to be < 70 mg/dL Performed By: #### L IPNF, 00941-4 ####[facility] LABCLIA [id number] [address] [place] LDL/HDL RATIO, NF 1.10 mg/dL Normal <2.54 [facility] Comment on above: Order Comment: [facility] Type: BLOOD SPECIMENOrdering Facility: [facility] Address: [address] [place] [address] Result Comment: Haylie aragon: 1. National Cholesterol Education Program ATP III Guideline At-A-Glance Quick Desk Reference: National Heart, Lung, and Blood Redbird. National Institutes of Health. 2001: NIH Publication No. 01-3305. 2. An International Atherosclerosis Society position paper: global recommendations for the management of dyslipidemia: executive summary, Atherosclerosis. 2014: 232(2):410-413. Performed By: #### L IPNF, 93166-7 ####[facility] LABCLIA [id number] [address] [place] NON HDL CHOL, NF 80 mg/dL Normal <130 [facility] Comment on above: Order Comment: Delia mccoy Type: BLOOD SPECIMENOrdering Facility: [facility] Address: [address] [place] [address] Result Comment: <130 mg/dL, Optimal 130-159 mg/dL, Near optimal/above optimal 160-189 mg/dL, Borderline high 190-219 mg/dL, High >219 mg/dL, Very high Secondary prevention optimal non HDL Cholesterol levels are recommended to be <100 mg/dL Performed By: #### L IPNF, 42825-3 ####[facility] LABCLIA [id number] [address] T CHOL/HDL RATIO NF 3.05 mg/dL Normal <5.10 [facility] Comment on above: Order Comment: Dleia mccoy Type: BLOOD SPECIMENOrdering Facility: [facility] Address: [address] [place] [address] Performed By: #### L IPNF, 58946-6 ####[facility] LABCLIA [id number] [address] [place] TRIGLYCERIDES, NF 187 mg/dL High <150 [facility] Comment on above: Order Comment: Delia mccoy Type: BLOOD SPECIMENOrdering Facility: [facility] Address: [address] [place] [address] Result Comment: <150 mg/dL, Normal 150-199 mg/dL, Borderline high 200-499 mg/dL, High >499 mg/dL, Very high Performed By: #### L IPNF, 65986-9 ####[facility] LABCLIA [id number] [id number] [address] [place] VLDL CHOLESTEROL, NF 37 mg/dL High <30 [facility] Comment on above: Order Comment: Speci men Type: BLOOD SPECIMENOrdering Facility: [facility] Address: [address] [place] [address] Performed By: #### L IP, 90599-0 ####[facility] LABCLIA [id number] [facility] [id number] [id number] [place] Basic metabolic 2000 panelon 08-27-2024 Anion gap [Moles/Vol] 12 mmol/L Normal 8-15 [facility] Comment on above: Order Comment: Speci men Type: BLOOD SPECIMEN Ordering Facility: [facility] Address: [address] [place] [address] Performed By: #### 2 4321-2 #### [facility] CLIA [id number] [address] [place] [address] [place] Calcium [Mass/Vol] 9.4 mg/dL Normal 8.5-10.2 [facility] Comment on above: Order Comment: Speci men Type: BLOOD SPECIMEN Ordering Facility: [facility] Address: [address] [place] [address] Performed By: #### 2 4321-2 #### [facility] CLIA [id number] [address] [place] [address] [place] Chloride [Moles/Vol] 94 mmol/L Low 98-107 [facility] Comment on above: Order Comment: Speci men Type: BLOOD SPECIMEN Ordering Facility: [facility] Address: [address] [place] [address] Performed By: #### 2 4321-2 #### [facility] CLIA [id number] [address] [place] [address] [place] CO2 [Moles/Vol] 28 mmol/L Normal 22-30 [facility] Comment on above: Order Comment: Speci men Type: BLOOD SPECIMEN Ordering Facility: [facility] Address: [address] [place] [address] Performed By: #### 2 4321-2 #### [facility] CLIA [id number] [address] [place] Creatinine [Mass/Vol] 1.04 mg/dL Normal 0.73-1.22 [facility] Comment on above: Order Comment: Delia mccoy Type: BLOOD SPECIMEN Ordering Facility: [facility] Address: [address] [place] [address] Performed By: #### 2 4321-2 #### [facility] CLIA [id number] [address] Creatinine and Glomerular filtration rate.predicted panel (S/P/Bld) 77 mL/min/1.73m??? Normal >=60 [facility] Comment on above: Order Comment: Delia mccoy Type: BLOOD SPECIMEN Ordering Facility: [facility] Address: [address] [place] [address] Result Comment: Angeline mated Glomerular Filtration Rate (eGFR) is calculated using the 2020 CKD-EPI creatinine equation. This equation utilizes serum creatinine, sex, and age as parameters. The creatinine assay has traceable calibration to isotope dilution-mass spectrometry. Refer to KDIGO guidelines for clinical interpretation. In patients with unstable renal function, e.g. those with acute kidney injury, the eGFR may not accurately reflect actual GFR. Performed By: #### 2 4321-2 #### [facility] CLIA [id number] [address] [place] Glucose [Mass/Vol] 78 mg/dL Normal 74-99 [facility] Comment on above: Order Comment: Delia mccoy Type: BLOOD SPECIMEN Ordering Facility: [facility] Address: [address] [place] [address] Result Comment: The [place] Diabetes Association (ADA) provides guidance for cutoff values for fasting glucose and random glucose. The ADA defines fasting as no caloric intake for at least 8 hours. Fasting plasma glucose results between 100 to 125 mg/dL indicate increased risk for diabetes (prediabetes). Fasting plasma glucose results greater than or equal to 126 mg/dL meet the criteria for diagnosis of diabetes. In the absence of unequivocal hyperglycemia, results should be confirmed by repeat testing. In a patient with classic symptoms of hyperglycemia or hyperglycemic crisis, random plasma glucose results greater than or equal to 200 mg/dL meet the criteria for diagnosis of diabetes. Reference: Standards of Medical Care in Diabetes 2016, [place] Diabetes Association. Diabetes Care. 2016.39(Suppl 1). Performed By: #### 2 4321-2 #### [facility] CLIA [id number] [address] Potassium [Moles/Vol] 4.0 mmol/L Normal 3.7-5.1 [facility] Comment on above: Order Comment: Delia mccoy Type: BLOOD SPECIMEN Ordering Facility: [facility] Address: [address] [place] [address] Performed By: #### 2 4321-2 #### [facility] CLIA [id number] [address] Sodium [Moles/Vol] 134 mmol/L Low 136-144 [facility] Comment on above: Order Comment: Delia mccoy Type: BLOOD SPECIMEN Ordering Facility: [facility] Address: [address] [place] [address] Performed By: #### 2 4321-2 #### [facility] CLIA [id number] [address] Urea nitrogen [Mass/Vol] 16 mg/dL Normal 9-24 [facility] Comment on above: Order Comment: Delia mccoy Type: BLOOD SPECIMEN Ordering Facility: [facility] Address: [address] [place] [address] Performed By: #### 2 4321-2 #### [facility] CLIA [id number] [address] [facility] CNOVon 08-27-2024 CNOV Office Visit (FAMPWS ) -- MARY AGUIAR ([id number]) 1955 M Date Time Provider Department 08/27/24 12:20 PM FARZANA KELLY During your visit today, we recorded the following information about you: Temperature Pulse Respiration Blood pressure 97.1 degrees 62/minute 20/minute 138/70 Weight 146.5 kg Farzana Kelly PA-C 08/27/2024 1:16 PM Signed Chief Complaint Patient presents with: Hospital F/U TCM initial contact date: 08/20/2024 HPI Mary Aguiar is a 68 year old male who presents here today for hospital F/u. Patient was admitted to [facility] on 08/15/24 for influenza A. Was d/c on 08/19 Hospital stay was complicated by syncopal episode prior to admittance. Oxygen at 79% when squad arrived at home. Was dx with bilateral pneumonia. ID did not feel that patient had bacterial superinfection so atb was switched to azithrmycin. Patient discharged home on oxygen and 2 days of azithromycin, as well as prednisone. BP meds were adjusted due to patient's renal function when admitted. Patient is back on losartan and amlodipine (at 5mg). He is still on lasix so not currently taking HCTZ. Home readings have been elevated but improving the past couple days. Cardiac follow up is 09/24/2024 Pulm follow up in 09/23/2024 Physical Therapy had echo that was overall okay. Per , carotid US wnl as well. Patient states he is feeling much better. Has been able to breath well. Did have some diarrhea that is improving. Reports his shortness of breath started in June and he thought it was from actos. Stopped the medication and never felt better. Past medical history, appointments, medications, allergies reviewed. [...] External hemorrhoids without mention of complication 03/08/2005 Family history of pancreatic cancer 04/02/2023 sister Foot callus 04/02/2023 Generalized osteoarthrosis, unspecified site 03/08/2005 History of colonic polyps 10/13/2007 Hyperlipidemia, mixed 07/14/2010 Internal hemorrhoids without mention of complication 03/08/2005 Morbid obesity with BMI of 40.0-44.9, adult ([facility]) 07/06/2010 Palpitations 11/29/2021 Has had for many years Personal history of colonic polyps 2018 Plantar fasciitis 05/02/2018 Proteinuria due to type 2 diabetes mellitus ([facility]) ([facility]) 05/15/2021 Rosacea 03/11/2021 Sleep apnea 09/01/2007 Not using CPAP Stasis dermatitis 07/07/2011 Type 2 diabetes mellitus without complication, without long-term current use of insulin ([facility]) 02/11/2016 Uncontrolled type 2 diabetes mellitus with hyperglycemia ([facility]) 07/28/2021 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 Venous (peripheral) insufficiency 03/08/2005 Previous Surgical History PAST SURGICAL HISTORY Procedure Laterality Date CHOLECYSTECTOMY 2002 Cholecystectomy COLONOSCOPY FLX DX W/COLLJ SPEC WHEN PFRMD 11-21-07 COLONOSCOPY FLX DX W/COLLJ SPEC WHEN PFRMD 06/13/2018 [facility]-Michael De Anda--Repeat 5 years COLSC FLX W/RMVL OF TUMOR POLYP LESION SNARE TQ 04-23-13 DEBRIDEMENT SUBCUTANEOUS TISSUE 20 SQ CM/< Left 06/27/15 Debridement UIQ left breast infected glenny cyst ENDOVENOUS LASER, 1ST VEIN 11/16/2014 [facility] - see scanned documents ENDOVENOUS LASER, 1ST VEIN 06/05/2015 [facility] - right great saphenous vein NEUROPLASTY AND/TRANSPOS MEDIAN NRV CARPAL TUNNE Carpal tunnel decomp, right STRESS TEST EXERCISE 09/21/2013 Exercise Myocardial Perfusion Stress test TONSILLECTOMY HX under age 12 Family History FAMILY HISTORY Problem Relation Age of Onset Heart Mother CHF, DM Diabetes Mother Cancer Father lung Hypertension Sister Pancreatic Cancer Sister Hypertension Brother COPD Brother Patient Allergies ALLERGIES Allergen Reactions Actos [Pioglitazone] Shortness of Breath Farxiga [Dapagliflo* Other: See Comments tachycardi and felt poorly on it. Lisinopril Cough Current Medications Current Outpatient Medications on File Prior to Visit Medication Sig furosemide (LASIX) 40 mg tablet Take 40 mg by mouth once daily. potassium chloride 20 mEq TbER 20 mEq. cyclobenzaprine (FLEXERIL) 10 mg tablet Take 1 tablet by mouth three times a day as needed for muscle spasm. amLODIPine (NORVASC) 10 mg tablet Take 1 tablet by mouth once daily. atorvastatin (LIPITOR) 20 mg tablet Take 1 tablet by mouth once daily. For cholesterol. glimepirid (more content not included)... Normal [facility] Glucoseon 08-19-2024 FINGERSTICK GLU 263 mg/dL High 74-106 [facility] Comment on above: Result Comment: USMAN BARNEYENT OF PATIENT CARE PER NURSING PROTOCOL Performed By: #### L 501.080 ####[facility] [address] [facility] [address] FINGERSTICK GLU 199 mg/dL High 74-106 [facility] Comment on above: Result Comment: USMAN CERVANTES OF PATIENT CARE PER NURSING PROTOCOL Performed By: #### L 501.080 #### [facility] Laboratory [address] [facility] [facility] [address] Discharge Instructionon Discharge Instruction [facility] Medical Records Department [address] [place] [address] Instructions for Home/Discharge Instructions 08/19/24 1140 MR#: [id number] Acct: [id number] Name: MARY AGUIAR Rep #: [id number] : 1955 68 From: Mack An MD PCP: Dr. Rick Sow MD Status:ADM IN Discharge Instructions Diet Discharge Diet: 8 Cup Fluid Restriction and 2000 mg Sodium Diet DC O2, CPAP, BIPAP needs RN Home O2 Qualification: Home O2 Qualification: Is the patient on home oxygen No 08/19/24 13:29 Home O2 Qualification: AT REST 1- Pulse Ox at rest 87 08/19/24 13:29 2- Pulse Ox at rest 95 08/19/24 13:29 2- Oxygen Flow Rate at rest 2 08/19/24 13:29 Home O2 Qualification: WITH AMBULATION 1- Pulse Ox with ambulation 88 08/19/24 13:29 1- Oxygen Flow Rate with 2 08/19/24 13:29 ambulation 2- Pulse Ox with ambulation 92 08/19/24 13:29 2- Oxygen Flow Rate with 3 08/19/24 13:29 ambulation Home O2 Discharge instructions: Yes Type of respiratory needs?: Oxygen Oxygen frequency: Continuous Continuous oxygen liters per minute: 2 and With Ambulation Oxygen liters per minute during Ambulation: 3 Dressing / Incision Discharge Activity: Return to Normal Activity Weight Bearing Status: Weight bearing as tolerated Dressing / Incision Call your doctor if you observe: Fever of 101 or Higher, Coldness, Increased Pain, Numbness or Tingling, Change in Color, Inability to urinate, Inability to have a bowel movement, Shortness of breath, Dizziness, Fainting spells, Swelling in the ankles, Chest pain, Prolonged hiccupping, Increased palpitations (irregular heartbeat) and Calf discomfort Follow Up Care When: IN 2 WEEKS Test Results: Test results from this visit will be discussed in further detail at your follow-up appointment, if applicable. Discharge Plan Admission Admit Date/Time: 08/15/24 23:17 Primary Reason for Your Visit: COPD exacerbation from influenza A. Chronic HFpEF Attending Provider: Mack An Primary Care Provider: Rick Sow Consulting Providers: Tanner Bah; Kishore Glover; Buck Bray; David Wallis; Yuri Chester; Edd Perez; Tanner Rosales; Alonso Power; Jorge Corrales; Carol Mcgregor; Salvador Craig; Mike Zavala; Yariel Wen; Mariya Ibanez; Elizabeth Castorena; Trina Conn; Torrey Rogers; Lavelle Su; Mitch Cardozo; Rasheed Bravo; Donta Patton; Ky Virgen; Mary Delcid; Jay Cornell; Raymond House Instructions Additional Instructions / Restrictions: Follow-up in pulmonary clinic for sleep study and PFT Discharge Orders/Prescriptions Prescriptions: New azithromycin 500 mg tablet 500 mg PO Q24 2 Days Qty: 2 0RF dextromethorphan-guaifenes in 60-1,200 mg tablet extended release 12 hr 1 tab PO BID 7 Days Qty: 14 0RF oseltamivir 75 mg Capsule 75 mg PO BID 1 Days Qty: 2 0RF furosemide 40 mg tablet 40 mg PO DAILY 14 Days Qty: 14 0RF Rx Instructions: Take extra 40 mg dose at 5 PM for increased leg swelling or weight gain 5 pounds in 1 week. potassium chloride 20 mEq tablet extended release 20 meq PO DAILY 30 Days Qty: 30 0RF prednisone 20 mg tablet 40 mg PO DAILY 5 Days Qty: 10 0RF Continued atorvastatin [Lipitor] 10 mg tablet 20 mg PO DAILY losartan 50 MG tablet 100 mg PO DAILY omega-3 fatty acids 300 MG capsule 300 mg PO DAILY aspirin 81 MG tablet 81 mg PO DAILY@0800 multivitamin with folic acid 1 TABLET tablet 1 tab PO DAILY metformin 500 MG tablet 1,000 mg PO BID glimepiride 4 mg tablet 4 mg PO BID Changed amlodipine 10 MG tablet 5 mg PO DAILY 30 Days Qty: 0 0RF Held hydrochlorothiazide 25 MG tablet 25 mg PO DAILY Hold Instructions: Hold it while patient is taking furosemide Referrals / Follow Up: Edd Perez DO [Med Staff - Active Staff] - Within 1 Month Rick Sow MD [Primary Care Provider] - Melinda Cifuentes MD [Med Staff - Active Staff] - Within 1 Month (For possible heart failure) Disposition Disposition (needs filled in before D/C Order can be placed): Home, Self Care 08/19/24 1400 Mack An MD CC: Dr. David Wallis MD; Dr. Buck Bray MD; Dr. Yuri Chester MD; Dr. Tanner Rosales MD; Dr. Tanner Bah DO; Dr. Edd Perez DO; Dr. Alonso Power MD; Dr. Jorge Corrales MD; Dr. Salvador Craig MD; Dr. Rick Sow MD; Dr. Mike Zavala MD; Dr. Yariel Wen MD; Dr. Mariya Ibanez MD; Dr. Elizabeth Castorena MD; Dr. Trina Conn MD; Dr. Lavelle Su MD; Dr. Torrey Rogers MD; Dr. Kishore Glover MD; Dr. Mitch Cardozo MD; Dr. Ky Virgen MD; Dr. Donta Patton MD; Dr. Rasheed Bravo DO; Dr. Mary Delcid DO; Dr. Jay Cornell MD; Dr. Raymond House MD; Dr. Carol Mcgregor MD Signed Normal [facility] de[facility]dered By: Mack An on 08-19-2024 Bedside Glucose (Misc Panel) 263 mg/dL High 74-106 [facility] Comment on above: MANAGEMENT OF PATIEN T CARE PER NURSING PROTOCOL Glucose [Mass/Vol] 263 mg/dL High 74-106 [facility] Comment on above: MANAGEMENT OF PATIEN T CARE PER NURSING PROTOCOL Respiratory Cultureon 2024 RESPC Mixed normal respira tory steve. No Streptococcus pneumoniae, beta-hemolytic Streptococcus or Staphylococcus aureus isolated. Normal [facility] Comment on above: Performed By: #### M 100.2000, M100.2400 ####[facility] [address] [place], [address] Absolute lymphocyte countOrd ered By: Mack An on 08-18-2024 Lymphocytes Auto (Unsp spec) [#/Vol] 1.41 10*3/uL 0.83-4.51 [facility] Absolute neutrophil countOrd ered By: Mack An on 08-18-2024 Neutrophils (Bld) [#/Vol] 9.1 10*3/uL High 2.0-7.7 [facility] Automated lymphocyte count a s percentage of total leukocytesOrdered By: Mack An on 08-18-2024 Lymphocytes/100 WBC Auto (Unsp spec) 12.8 % Low 19-41 [facility] Basic Metabolic Profile (BMP )on 08-18-2024 BUN/CRE 19.0 RATIO Normal 10-20 [facility] Comment on above: Performed By: #### L 100.0100, L500.2500 ####[facility] [address] [place], [address] CA,Total 7.8 mg/dL Low 8.5-10.1 [facility] Comment on above: Performed By: #### L 100.0100, L500.2500 ####[facility] [address] [place], [address] Chloride [Moles/Vol] 100 mmol/L Normal 98-107 [facility] Comment on above: Performed By: #### L 100.0100, L500.2500 ####[facility] [address] [place], [address] CO2 [Moles/Vol] 31.0 mmol/L Normal 21.0-32.0 [facility] Comment on above: Performed By: #### L 100.0100, L500.2500 ####[facility] [address] [place], [address] Creatinine [Mass/Vol] 0.95 mg/dL Normal 0.70-1.30 [facility] Comment on above: Result Comment: The validity of the calculated GFR GFRAA in patients over 70 years has not been determined. Clinical correlation is essential. Performed By: #### L 100.0100, L500.2500 ####[facility] [address] [place], [address] ECRCL 113.99 ml/min Normal [facility] Comment on above: Performed By: #### L 100.0100, L500.2500 ####[facility] [address] [place], [address] EST GFR - AA 101 mL/min Normal >60 [facility] Comment on above: Result Comment: Afri can Afghan GFR Calc Performed By: #### L 100.0100, L500.2500 ####[facility] [address] [place], [address] GAP 4 Low 5-15 [facility] Comment on above: Performed By: #### L 100.0100, L500.2500 ####[facility] [address] [place], [address] GFR/1.73 sq M.predicted among non-blacks MDRD (S/P/Bld) [Vol rate/Area] 84 mL/min/{1.73_m2} Normal >60 [facility] Comment on above: Result Comment: Non- GFR Calc Performed By: #### L 100.0100, L500.2500 ####[facility] [address] [place], [address] Glucose [Mass/Vol] 118 mg/dL High 74-106 [facility] Comment on above: Result Comment: Fast ing Glucose result from 100 to 125 mg/dL suggests IMPAIRED HOMEOSTASIS per A.D.A. criteria. Performed By: #### L 100.0100, L500.2500 ####[facility] [address] [place], [address] Potassium [Moles/Vol] 3.7 mmol/L Normal 3.5-5.1 [facility] Comment on above: Performed By: #### L 100.0100, L500.2500 ####[facility] [address] [place], [address] Sodium [Moles/Vol] 136 mmol/L Normal 136-145 [facility] Comment on above: Performed By: #### L 100.0100, L500.2500 ####[facility] [address] [place], [address] Urea nitrogen [Mass/Vol] 18 mg/dL Normal 7-18 [facility] Comment on above: Performed By: #### L 100.0100, L500.2500 ####[facility] [address] [place], [address] Basophil percentageOrdered B y: Mackkathy An on 08-18-2024 Basophils/100 WBC (Bld) 0.2 % 0-1 [facility] Bedside Glucoseon 08-18-2024 FINGERSTICK GLU 254 mg/dL High 74-106 [facility] Comment on above: Result Comment: USMAN GEMENT OF PATIENT CARE PER NURSING PROTOCOL Performed By: #### L 501.080 #### [facility] Laboratory [address] [place], [address] FINGERSTICK GLU 215 mg/dL High 74-106 [facility] Comment on above: Result Comment: USMAN GEMENT OF PATIENT CARE PER NURSING PROTOCOL Performed By: #### L 501.080 ####[facility] [address] [place], [address] FINGERSTICK GLU 170 mg/dL High 74-106 [facility] Comment on above: Result Comment: USMAN GEMENT OF PATIENT CARE PER NURSING PROTOCOL Performed By: #### L 501.080 #### [facility] [address] [place], [address] FINGERSTICK GLU 122 mg/dL High 74-106 [facility] Comment on above: Result Comment: USMAN GEMENT OF PATIENT CARE PER NURSING PROTOCOL Performed By: #### L 501.080 #### [facility] [address] [place], [address] Blood urea nitrogen (BUN)/cr eatinine ratioOrdered By: Mack An on 08-18-2024 Urea nitrogen/Creatinine [Mass ratio] 19.0 mg/mg 10-20 [facility] CBC W/Diff, Automatedon 02-0 Absolute Lymph 1.41 X10 3/uL Normal 0.83-4.51 [facility] Comment on above: Performed By: #### L 100.0100, L500.2500 ####[facility] [address] [place], [address] Absolute Neut 9.1 X10 3/uL High 2.0-7.7 [facility] Comment on above: Performed By: #### L 100.0100, L500.2500 ####[facility] [address] [place], [address] Basophils/100 WBC (Bld) 0.2 % Normal 0-1 [facility] Comment on above: Performed By: #### L 100.0100, L500.2500 ####[facility] [address] [place], [address] Eosinophils/100 WBC (Bld) 0.0 % Normal 0-5 [facility] Comment on above: Performed By: #### L 100.0100, L500.2500 ####[facility] [address] [place], [address] Erythrocyte distribution width (RBC) [Ratio] 13.2 % Normal 11.6-14.6 [facility] Comment on above: Performed By: #### L 100.0100, L500.2500 ####[facility] [address] [place], [address] Hematocrit (Bld) [Volume fraction] 44.9 % Normal 40-54 [facility] Comment on above: Performed By: #### L 100.0100, L500.2500 ####[facility] [address] [place], [address] Hemoglobin (Bld) [Mass/Vol] 14.1 g/dL Normal 13.0-16.5 [facility] Comment on above: Performed By: #### L 100.0100, L500.2500 ####[facility] [address] [place], [address] IG% 0.600 Normal 0.0-0.9 [facility] Comment on above: Result Comment: IG% - Immature Granulocytes (promyelocytes, myelocytes and metamyelocytes) > 1% indicates that a LEFT SHIFT is Present. Performed By: #### L 100.0100, L500.2500 ####[facility] [address] [place], [address] Lymphocytes/100 WBC (Bld) 12.8 % Low 19-41 [facility] Comment on above: Performed By: #### L 100.0100, L500.2500 ####[facility] [address] [place], [address] MCH (RBC) [Entitic mass] 27.8 pg Normal 27.0-32.0 [facility] Comment on above: Performed By: #### L 100.0100, L500.2500 ####[facility] [address] [place], [address] MCHC (RBC) [Mass/Vol] 31.4 g/dL Low 32-36 [facility] Comment on above: Performed By: #### L 100.0100, L500.2500 ####[facility] [address] [place], [address] MCV (RBC) [Entitic vol] 88.4 fL Normal 80-94 [facility] Comment on above: Performed By: #### L 100.0100, L500.2500 ####[facility] [address] [place], [address] Monocytes/100 WBC (Bld) 4.1 % Normal 0-10 [facility] Comment on above: Performed By: #### L 100.0100, L500.2500 ####[facility] [address] [place], [address] Neutrophils/100 WBC (Bld) 82.3 % High 47-70 [facility] Comment on above: Performed By: #### L 100.0100, L500.2500 ####[facility] [address] [place], [address] Nucleated RBC (Bld) [#/Vol] 0 10*3/uL Normal 0-5 [facility] Comment on above: Performed By: #### L 100.0100, L500.2500 ####[facility] [address] [place], [address] Platelet mean volume (Bld) [Entitic vol] 10.5 fL Normal 6.2-12.0 [facility] Comment on above: Performed By: #### L 100.0100, L500.2500 ####[facility] [address] [place], [address] Platelets (Bld) [#/Vol] 220 10*3/uL Normal 150-450 [facility] Comment on above: Performed By: #### L 100.0100, L500.2500 ####[facility] [address] [place], [address] RBC (Bld) [#/Vol] 5.08 10*6/uL Normal 4.6-6.2 [facility] Comment on above: Performed By: #### L 100.0100, L500.2500 ####[facility] [address] [place], [address] RDW SD 42.3 fl Normal 35.1-43.9 [facility] Comment on above: Performed By: #### L 100.0100, L500.2500 ####[facility] [address] [place], [address] WBC (Bld) [#/Vol] 11.0 10*3/uL Normal 4.4-11.0 [facility] Comment on above: Performed By: #### L 100.0100, L500.2500 ####[facility] [address] [place], [address] Carbon dioxide measurementOr dered By: Mack An on 08-18-2024 CO2 [Moles/Vol] 31.0 mmol/L 21.0-32.0 [facility] Chloride measurementOrdered By: Makc An on 08-18-2024 Chloride [Moles/Vol] 100 mmol/L 98-107 [facility] Eosinophil percentageOrdered By: Mack An on 08-18-2024 Eosinophils/100 WBC (Bld) 0.0 % 0-5 [facility] Erythrocyte distribution wid th (RBC) [Ratio]Ordered By: Mack An on 08-18-2024 Erythrocyte distribution width (RBC) [Entitic vol] 42.3 fL 35.1-43.9 [facility] Erythrocyte distribution wid th ratioOrdered By: Mack An on 08-18-2024 Erythrocyte distribution width (RBC) [Ratio] 13.2 % 11.6-14.6 [facility] Erythrocyte distribution wid th standard deviationOrdered By: Mack An on 08-18-2024 Erythrocyte distribution width (RBC) [Ratio] 42.3 fl 35.1-43.9 [facility] Estimated glomerular filtrat ion rate (GFR) AmericanOrdered By: Mack nA on 08-18-2024 Estimated GFR (MDRD) Amer 101 mL/min >60 [facility] Comment on above: GFR Calc Estimation of creatinine josephine aranceOrdered By: Mack An on 08-18-2024 Estimated Creatinine Clearance Calc 113.99 ml/min [facility] Glomerular filtration rate ( GFR) estimationOrdered By: Mack An on 08-18-2024 Estimated GFR (MDRD) Non-Af Amer 84 mL/min >60 [facility] Comment on above: Non- GFR Calc GFR/1.73 sq M.predicted among non-blacks MDRD (S/P/Bld) [Vol rate/Area] 84 mL/min/{1.73_m2} >60 [facility] Comment on above: Non- GFR Calc Glucose measurementOrdered B y: Mack An on 08-18-2024 Glucose [Mass/Vol] 118 mg/dL High 74-106 [facility] Comment on above: Fasting Glucose resu lt from 100 to 125 mg/dL suggests IMPAIRED HOMEOSTASIS per A.D.A. criteria. Hematocrit Auto (Bld) [Volum e fraction]Ordered By: Mack An on 08-18-2024 Hematocrit (Bld) [Volume fraction] 44.9 % 40-54 [facility] Hemoglobin measurementOrdere d By: Mack An on 08-18-2024 Hemoglobin (Bld) [Mass/Vol] 14.1 g/dL 13.0-16.5 [facility] Immature granulocytes/100 WB C Auto (Bld)Ordered By: Mack An on 08-18-2024 Immature granulocytes/100 WBC (Bld) 0.600 % 0.0-0.9 [facility] Comment on above: IG% - Immature Granu locytes (promyelocytes, myelocytes and metamyelocytes) > 1% indicates that a LEFT SHIFT is Present. Lymphocytes Auto (Unsp spec) [#/Vol]Ordered By: Mack An on 08-18-2024 Lymphocytes (Bld) [#/Vol] 1.41 10*3/uL 0.83-4.51 [facility] Lymphocytes/100 WBC Auto (Un sp spec)Ordered By: Mack An on 08-18-2024 Lymphocytes/100 WBC (Bld) 12.8 % Low 19-41 [facility] MCV (mean corpuscular volume ) determinationOrdered By: Mack An on 08-18-2024 MCV (RBC) [Entitic vol] 88.4 fL 80-94 [facility] Mean corpuscular hemoglobin (MCH) determinationOrdered By: Mack An on 08-18-2024 MCH (RBC) [Entitic mass] 27.8 pg 27.0-32.0 [facility] Mean corpuscular hemoglobin concentration (MCHC) determinationOrdered By: Mack An on 08-18-2024 MCHC (RBC) [Mass/Vol] 31.4 g/dL Low 32-36 [facility] Mean platelet volume determi nationOrdered By: Mack An on 08-18-2024 Platelet mean volume (Bld) [Entitic vol] 10.5 fL 6.2-12.0 [facility] Monocyte percentageOrdered B y: Mack An on 08-18-2024 Monocytes/100 WBC (Bld) 4.1 % 0-10 [facility] Neutrophil percentageOrdered By: Mack An on 08-18-2024 Neutrophils/100 WBC (Bld) 82.3 % High 47-70 [facility] Nucleated red blood cell per centageOrdered By: Mack An on 08-18-2024 Nucleated RBC/100 WBC (Bld) [Ratio] 0 % 0-5 [facility] Platelet countOrdered By: Caitlin An on 08-18-2024 Platelets (Bld) [#/Vol] 220 10*3/uL 150-450 [facility] Potassium measurementOrdered By: Mack An on 08-18-2024 Potassium [Moles/Vol] 3.7 mmol/L 3.5-5.1 [facility] RBC Auto (Bld) [#/Vol]Ordere d By: Mack An on 08-18-2024 RBC (Bld) [#/Vol] 5.08 10*6/uL 4.6-6.2 [facility] Serum anion gap measurementO rdered By: Mack An on 08-18-2024 Anion gap [Moles/Vol] 4 mmol/L Low 5-15 [facility] Serum or plasma calcium melva urement (mass/volume)Ordered By: Mack An on 08-18-2024 Calcium [Mass/Vol] 7.8 mg/dL Low 8.5-10.1 [facility] Serum or plasma creatinine m easurement (mass/volume)Ordered By: Mack An on 08-18-2024 Creatinine [Mass/Vol] 0.95 mg/dL 0.70-1.30 [facility] Comment on above: The validity of the calculated GFR & GFRAA in patients over 70 years has not been determined. Clinical correlation is essential. Serum or plasma urea nitroge n measurement (mass/volume)Ordered By: Mack An on 08-18-2024 Urea nitrogen [Mass/Vol] 18 mg/dL 7-18 [facility] Sodium levelOrdered By: Shawn An on 08-18-2024 Sodium [Moles/Vol] 136 mmol/L 136-145 [facility] White blood cell (WBC) count Ordered By: Mack An on 08-18-2024 WBC (Bld) [#/Vol] 11.0 10*3/uL 4.4-11.0 [facility] Basic Metabolic Profile (BMP )on 08-17-2024 BUN/CRE 14.0 RATIO Normal 10-20 [facility] Comment on above: Performed By: #### L 501.080 #### [facility] Laboratory [facility] [address] [place], [address] CA,Total 7.4 mg/dL Low 8.5-10.1 [facility] Comment on above: Performed By: #### L 501.080 #### [facility] [address] [place], [address] Chloride [Moles/Vol] 102 mmol/L Normal 98-107 [facility] Comment on above: Performed By: #### L 501.080 #### [facility] [address] [place], [address] CO2 [Moles/Vol] 29.0 mmol/L Normal 21.0-32.0 [facility] Comment on above: Performed By: #### L 501.080 #### [facility] [address] [place], [address] Creatinine [Mass/Vol] 1.14 mg/dL Normal 0.70-1.30 [facility] Comment on above: Result Comment: The validity of the calculated GFR GFRAA in patients over 70 years has not been determined. Clinical correlation is essential. Performed By: #### L 501.080 #### [facility] [address] [place], [address] ECRCL 94.99 ml/min Normal [facility] Comment on above: Performed By: #### L 501.080 #### [facility] [address] [place], [address] EST GFR - AA 82 mL/min Normal >60 [facility] Comment on above: Result Comment: Afri can Afghan GFR Calc Performed By: #### L 501.080 #### [facility] [facility] [address] [place], [address] GAP 5 Normal 5-15 [facility] Comment on above: Performed By: #### L 501.080 #### [facility] [address] [place], [address] GFR/1.73 sq M.predicted among non-blacks MDRD (S/P/Bld) [Vol rate/Area] 67 mL/min/{1.73_m2} Normal >60 [facility] Comment on above: Result Comment: Non- GFR Calc Performed By: #### L 501.080 #### [facility] [address] [place], [address] Glucose [Mass/Vol] 219 mg/dL High 74-106 [facility] Comment on above: Result Comment: Gluc ose result greater than or equal to 200 mg/dL suggests DIABETES MELLITUS per A.D.A. criteria. Performed By: #### L 501.080 #### [facility] [address] [place], [address] Potassium [Moles/Vol] 4.0 mmol/L Normal 3.5-5.1 [facility] Comment on above: Performed By: #### L 501.080 #### [facility] [address] [place], [address] Sodium [Moles/Vol] 136 mmol/L Normal 136-145 [facility] Comment on above: Performed By: #### L 501.080 #### [facility] [address] [place], [address] Urea nitrogen [Mass/Vol] 16 mg/dL Normal 7-18 [facility] Comment on above: Performed By: #### L 501.080 #### [facility] [address] [place], [address] Bedside Glucoseon 08-17-2024 FINGERSTICK GLU 267 mg/dL High -106 [facility] Comment on above: Result Comment: USMAN CERVANTES OF PATIENT CARE PER NURSING PROTOCOL Performed By: #### L 501.080 ####[facility] [address] [place], [address] FINGERSTICK GLU 220 mg/dL High 74-106 [facility] Comment on above: Result Comment: USMAN GEMENT OF PATIENT CARE PER NURSING PROTOCOL Performed By: #### L 501.080 #### [facility] [address] [place], [address] FINGERSTICK GLU 236 mg/dL High 74-106 [facility] Comment on above: Result Comment: USMAN GEMENT OF PATIENT CARE PER NURSING PROTOCOL Performed By: #### L 501.080 ####[facility] [address] [place], [address] FINGERSTICK GLU 208 mg/dL High 74-106 [facility] Comment on above: Result Comment: USMAN GEMENT OF PATIENT CARE PER NURSING PROTOCOL Performed By: #### L 501.080 #### [facility] [address] [place], [address] CBC W/Diff, Automatedon 02-0 3-2024 Absolute Lymph 0.45 X10 3/uL Low 0.83-4.51 [facility] Comment on above: Performed By: #### L 501.080 #### [facility] [address] [place], [address] Absolute Neut 7.7 X10 3/uL Normal 2.0-7.7 [facility] Comment on above: Performed By: #### L 501.080 #### [facility] [address] [place], [address] Basophils/100 WBC (Bld) 0.1 % Normal 0-1 [facility] Comment on above: Performed By: #### L 501.080 #### [facility] [address] [place], [address] Eosinophils/100 WBC (Bld) 0.0 % Normal 0-5 [facility] Comment on above: Performed By: #### L 501.080 #### [facility] [address] [place], [address] Erythrocyte distribution width (RBC) [Ratio] 13.2 % Normal 11.6-14.6 [facility] Comment on above: Performed By: #### L 501.080 #### [facility] [address] [place], [address] Hematocrit (Bld) [Volume fraction] 43.3 % Normal 40-54 [facility] Comment on above: Performed By: #### L 501.080 #### [facility] [address] [place], [address] Hemoglobin (Bld) [Mass/Vol] 13.9 g/dL Normal 13.0-16.5 [facility] Comment on above: Performed By: #### L 501.080 #### [facility] [address] [place], [address] IG% 1.200 High 0.0-0.9 [facility] Comment on above: Result Comment: IG% - Immature Granulocytes (promyelocytes, myelocytes and metamyelocytes) > 1% indicates that a LEFT SHIFT is Present. Performed By: #### L 501.080 #### [facility] [address] [place], [address] Lymphocytes/100 WBC (Bld) 5.2 % Low 19-41 [facility] Comment on above: Performed By: #### L 501.080 #### [facility] [address] [place], [address] MCH (RBC) [Entitic mass] 28.5 pg Normal 27.0-32.0 [facility] Comment on above: Performed By: #### L 501.080 #### [facility] [address] [place], [address] MCHC (RBC) [Mass/Vol] 32.1 g/dL Normal 32-36 [facility] Comment on above: Performed By: #### L 501.080 #### [facility] [address] [place], [address] MCV (RBC) [Entitic vol] 88.9 fL Normal 80-94 [facility] Comment on above: Performed By: #### L 501.080 #### [facility] [address] [place], [address] Monocytes/100 WBC (Bld) 3.9 % Normal 0-10 [facility] Comment on above: Performed By: #### L 501.080 #### [facility] [address] [place], [address] Neutrophils/100 WBC (Bld) 89.6 % High 47-70 [facility] Comment on above: Performed By: #### L 501.080 #### [facility] [address] [place], [address] Nucleated RBC (Bld) [#/Vol] 0 10*3/uL Normal 0-5 [facility] Comment on above: Performed By: #### L 501.080 #### [facility] [address] [place], [address] Platelet mean volume (Bld) [Entitic vol] 10.2 fL Normal 6.2-12.0 [facility] Comment on above: Performed By: #### L 501.080 #### [facility] [address] [place], [address] Platelets (Bld) [#/Vol] 200 10*3/uL Normal 150-450 [facility] Comment on above: Performed By: #### L 501.080 #### [facility] [address] [place], [address] RBC (Bld) [#/Vol] 4.87 10*6/uL Normal 4.6-6.2 [facility] Comment on above: Performed By: #### L 501.080 #### [facility] [address] [place], [address] RDW SD 42.7 fl Normal 35.1-43.9 [facility] Comment on above: Performed By: #### L 501.080 #### [facility] [address] [place], [address] WBC (Bld) [#/Vol] 8.6 10*3/uL Normal 4.4-11.0 [facility] Comment on above: Performed By: #### L 501.080 #### [facility] [address] [place], [address] Chest 1 View (Portable)on Chest 1 View (Portable) [facility] Imaging Services [address] [place], [place] [address] Chest 1 View (Portable) MR#: [id number] Acct: [id number] Name: MARY AGUIAR Rep #: [id number] : 1955 M 68 From: Jonas Miranda MD PCP: Dr. Rick Sow MD Status: ADM IN Study: Chest 1 View (Portable) Date of Exam: 08/17/24 Exam# [id number] Ordering Dr: Mack An MD EXAM: XR Chest, 1 View CLINICAL INDICATION: TECHNIQUE: Frontal view of the chest. COMPARISON: No relevant prior studies available. FINDINGS: LUNGS AND PLEURAL SPACES: See below. HEART: Cardiomegaly with pulmonary congestion and edema. Superimposed pneumonia cannot be excluded. MEDIASTINUM: Unremarkable. Normal mediastinal contour. BONES/JOINTS: Unremarkable. No acute fracture. RAD/Chest 1 View (Portable) IMPRESSION: Cardiomegaly with pulmonary congestion and edema. Superimposed pneumonia cannot be excluded. Reading [facility] CC: Dr. Rick Sow MD; Dr. Mack An MD Marine Safety Officer: Signed Normal [facility] Consultation - Infectious Dx on 08-17-2024 Consultation - Infectious Dx [facility] Medical Records Department [address] [place] [address] Consultation - Infectious Dx 08/17/24 1312 MR#: [id number] Acct: [id number] Name: MARY AGUIAR Rep #: [id number] : 1955 68 From: Kishore Glover MD PCP: Dr. Rick Sow MD Status:ADM IN Location: ICU [id number] Assessment Plan Assessment/Plan (1) COPD exacerbation: (2) Influenza A: PLAN: No clear evidence of bacterial superinfection. Will cont tamiflu, change abx to short course azithro. Will follow, thank you, d/w Dr. Perez HPI Consult Data Date of Consult: 08/17/24 HPI Narrative Reason for Consultation: flu HPI Narrative: MARY AGUIAR, is a 68 M with h/o obesity, htn, copd, presented 08/15 with two days progressive fatigue, chills, aches, cough. Dx with flu at urgent care, sent home. Sx worsened, came to ED, admitted on tamiflu, vanc, zosyn. Feeling a little better today. at bedside provided additional history. Full ROS performed and neg except as noted above. [facility] Medical History Wears glasses High cholesterol Dietary restriction Seasonal allergies Heartburn Former smoker History of stress test Diabetes Hemorrhoids HTN (hypertension) Home Medications ???Medication ???Instructions ???Recorded ???Last Taken ???Type amlodipine 10 mg tablet 10 mg PO DAILY 04/23/13 07/11/23 H istory hydrochlorothiazide 25 mg tablet 25 mg PO DAILY 04/23/13 07/10/23 H istory losartan 50 mg tablet 100 mg PO DAILY 04/23/13 07/11/23 History omega-3 fatty acids 300 mg capsule 300 mg PO DAILY 04/23/13 3 History aspirin 81 mg tablet,delayed 81 mg PO DAILY@0800 11/09/1407/04 History release multivitamin with folic acid 400 1 tab PO DAILY 11/09/14 07/09/23 H istory mcg tablet atorvastatin 10 mg tablet (Lipitor) 20 mg PO DAILY 08/11/18 3 History metformin 500 mg tablet,extended 1,000 mg PO BID 06/29/19 07/09/23 History release 24 hr glimepiride 4 mg tablet 4 mg PO BID 07/05/23 07/08/23 Hist ory Allergy/AdvReac Type Severity Reaction Status Date / Time dapagliflozin (From [facility]) Allergy Intermediate Chest Verified 08/15/24 21:24 tightness lisinopril AdvReac Other Verified 08/15/24 21:24 Family History Father Cancer Mother Diabetes Surgical History History of carpal tunnel release of both wrists History of colonoscopy History of cholecystectomy H/O hernia repair History of vein stripping Social History household members: spouse housing: house current occupational status: retired Smoking Status: Former smoker alcohol intake: never Physical Exam Const alert, oriented x3 and no apparent distress General Appearance: cooperative HEENT normocephalic and head/scalp atraumatic Eyes PERRL and EOMs intact bilaterally Neck supple and No nodes Resp Auscultation: wheezes and diminished lung sounds Cardio regular rate and regular rhythm GI soft to palpation, non-tender and non-distended Extremity General Extremity: Negative for edema Skin no rashes or lesions noted Neuro CN's II-XII intact bilaterally Lab / Micro Data Attestation: I reviewed the patient's lab results. 08/17/24 06:00 08/17/24 06:00 Labs: Laboratory Results - last 24 hr 08/16/24 15:53: POC Glucose 262 H 08/16/24 21:29: POC Glucose 230 H 08/17/24 06:00: WBC 8.6, RBC 4.87, Hgb 13.9, Hct 43.3, MCV 88.9, MCH 28.5, MCHC 32.1, RDW Std Deviation 42.7, RDW Coeff of Hilda 13.2, Plt Count 200, MPV 10.2, Immature Gran % (Auto) 1.200 H, Neut % (Auto) 89.6 H, Lymph % (Auto) 5.2 L, Sherman % (Auto) 3.9, Eos % (Auto) 0.0, Baso % (Auto) 0.1, Absolute Neuts (auto) 7.7, Absolute Lymphs (auto) 0.45 L, Nucleated RBC % 0, Sodium 136, Potassium 4.0, Chloride 102, Carbon Dioxide 29.0, Anion Gap 5, BUN 16, Creatinine 1.14, Estim Creat Clear Calc 94.99, Est GFR (MDRD) Af Amer 82, Est GFR (MDRD) Non-Af 67, BUN/Creatinine Ratio 14.0, Glucose 219 H , Calcium 7.4 L, Phosphorus 3.3 08/17/24 07:52: POC Glucose 208 H 08/17/24 11:28: POC Glucose 236 H 08/17/24 12:40: Phosphorus 2.1 L, Magnesium 2.6, Vancomycin Trough 15.2 H Micro: Microbiology 08/16/24 07:40 Mucosa - Nasopharyngeal Coronavirus COVID-19 PCR - Final 08/16/24 07:40 Mucosa - Nasopharyngeal Respiratory Panel (PCR) - Final Influenza A (Subtype H1) Rhythm Strip Rhythm Strip: Sinus Rhythm Rate: 100 Ectopy: None Imaging Radiology Impression Carotid Duplex 08/15/24 23:32 Interpretation Summary Mild (<50%) stenosis right extracranial internal carotid. Moderate (50-69%) stenosis left extracranial internal car (more content not included)... Normal [facility] Consultation - Intensiviston 08-17-2024 Consultation - Lathe Set Up Person [facility] Medical Records Department [address] [place] [address] Consultation - Lathe Set Up Person 08/17/24 1427 MR#: [id number] Acct: [id number] Name: MARY AGUIAR Rep #: [id number] : 1955 68 From: Edd Perez DO PCP: Dr. Rick Sow MD Status:ADM IN Location: ICU [id number] Assessment Plan Assessment/Plan (1) Influenza A: PLAN: Plan RECOMMENDATIONS: 1. Supplemental oxygen to maintain saturations at or above 90%. 2. Start empiric BiPAP therapy with naps and nightly. 3. Antimicrobials per ID recommendations. 4. Continue appropriate DVT prophylaxis. 5. Gentle diuresis as tolerated by hemodynamics and renal function. 6. Encourage incentive spirometer use and mobilize patient as tolerated. IMPRESSIONS: 1. Acute respiratory failure with hypoxemia Most likely secondary to presenting influenza A infection. The patient reported that he has never been diagnosed with COPD, despite documentation to the contrary. Therefore, there is unclear benefit from the use of scheduled bronchodilators. However, it is reasonable to continue Tamiflu along with a short course of antimicrobials, under the discretion of infectious diseases, to cover for secondary bacterial pneumonia. Recommend continuance of diuretics as tolerated by hemodynamics and renal function. 2. History of obstructive sleep apnea The patient reported noncompliance with PAP therapy. However, he is agreeable to a trial of BiPAP therapy with naps and nightly, while admitted to the hospital. Orders have been placed accordingly. 3. History of hypertension/morbid obesity/diabetes mellitus/hyperlipidemia Complicates care, management, recovery and prognosis. Continue home medications as indicated. This note was generated with [employer] dictation software. It may contain incorrect words, spelling, and punctuation that were not noted in checking the note before signing. HPI Consult Data Date of Consult: 08/18/24 HPI Narrative Reason for Consultation: Respiratory failure with hypoxemia HPI Narrative: The patient is a 68-year-old male, with a history as outlined below, who presented to the emergency department on August 16 with complaints of shortness of breath and syncope. The patient has a known history of hypertension/hyperlipidemi a/prior tobacco dependency and diabetes mellitus. He has never been diagnosed with COPD or asthma. The patient does not utilize supplemental oxygen at his baseline. He does report noncompliance with nocturnal PAP therapy. 2 days prior to his hospital admission, the patient tested positive for influenza A through a local urgent care clinic, but was not placed on any therapy. On presentation to the emergency department, the patient was documented to be febrile, tachycardic and tachypneic, but was otherwise hemodynamically stable. Laboratory evaluation revealed a normal white blood cell count. Chemistry profile was notable for a creatinine of 1.39 with a lactate of 2.5. TSH was within normal limits. Influenza A PCR was +August 16. CTA chest showed no definitive evidence of proximal PE, but did demonstrate mild groundglass airspace opacities. The patient was placed on Tamiflu, antimicrobials and steroids. He was subsequently admitted to the hospital for further management. [facility] Medical History Wears glasses High cholesterol Dietary restriction Seasonal allergies Heartburn Former smoker History of stress test Diabetes Hemorrhoids HTN (hypertension) Home Medications ???Medication ???Instructions ???Recorded ???Last Taken ???Type amlodipine 10 mg tablet 10 mg PO DAILY 04/23/13 07/11/23 H istory hydrochlorothiazide 25 mg tablet 25 mg PO DAILY 04/23/13 07/10/23 H istory losartan 50 mg tablet 100 mg PO DAILY 04/23/13 07/11/23 History omega-3 fatty acids 300 mg capsule 300 mg PO DAILY 04/23/13 3 History aspirin 81 mg tablet,delayed 81 mg PO DAILY@0800 11/09/1407/04 History release multivitamin with folic acid 400 1 tab PO DAILY 11/09/14 07/09/23 H istory mcg tablet atorvastatin 10 mg tablet (Lipitor) 20 mg PO DAILY 08/11/18 3 History metformin 500 mg tablet,extended 1,000 mg PO BID 06/29/19 07/09/23 History release 24 hr glimepiride 4 mg tablet 4 mg PO BID 07/05/23 07/08/23 Hist ory Allergy/AdvReac Type Severity Reaction Status Date / Time dapagliflozin (From [facility]) Allergy Intermediate Chest Verified 08/15/24 21:24 tightness lisinopril AdvReac Other Verified 08/15/24 21:24 Family History Father Cancer Mother Diabetes Surgical History History of carpal tunnel release of both wrists History of colonoscopy Hi (more content not included)... Normal [facility] Gram Stainon 08-17-2024 GS Acceptable Specimen? Yes (<25 Epithelial cells per/lpf) Gram Stain Rare Epithelial cells Very Rare Gram positive cocci in chains Normal [facility] Comment on above: Performed By: #### M 100.2000, M100.2400 ####[facility] [address] [place], [address] M8200.1000on 08-17-2024 M8200.1000 Normal Reference Ran ge = Negative MRSA DNA Nose Ql LEO+probe GeneXpert Instrument, PCR method MRSA PCR MRSA NEGATIVE Normal [facility] Comment on above: Performed By: #### M 8200.1000 ####[facility] [address] [place], [address] MRSA DNA LEO+probe Ql (Nose) Ordered By: Mack An on 08-17-2024 MRSA (PCR) [facility] Magnesium measurementOrdered By: Mack An on 08-17-2024 Magnesium [Mass/Vol] 2.6 mg/dL Normal 1.6-2.6 [facility] Comment on above: Performed By: #### L 501.5200, L501.2300 ####[facility] [address] [place], [place], [id number] Nasal methicillin resistant Staphylococcus aureus (MRSA) DNA detection by PCROrdered By: Mack An on 08-17-2024 MRSA DNA LEO+probe Ql (Nose) [facility] Phosphoruson 08-17-2024 Phosphate [Mass/Vol] 2.1 mg/dL Low 2.5-4.9 [facility] Comment on above: Performed By: #### L 501.5200, L501.2300 ####[facility] [address] [place], [address] Phosphate [Mass/Vol] 3.3 mg/dL Normal 2.5-4.9 [facility] Comment on above: Performed By: #### L 501.2300 ####[facility] [address] [place], [address] Phosphorus measurementOrdere d By: Mack An on 08-17-2024 Phosphorus Level 2.1 mg/dL Low 2.5-4.9 [facility] Serum or plasma trough vanco mycin levelOrdered By: Tanner Smallwood on 08-17-2024 Vancomycin trough [Mass/Vol] 15.2 ug/mL High 5.0-15.0 [facility] Comment on above: VANCOMYCIN STANDARED DRUG THERAPY TROUGH LEVEL: 5.0 - 15.0 mg/L VANCOMYCIN HIGH INTENSITY THERAPY TROUGH LEVEL: 15.0 - 20.0 mg/L High Intensity therapy recommended for serious lifethreatening infections include:- Xsdferoehn-Wcgpuyjvvjav-Garkarybh (Ventilator/Healtcare Associated)-Sepsis PLEASE CONTACT PHARMACY SERVICES (#[id number]) FOR INTERPRETATIONOF RESULTS. Vancomycin trough [Mass/Vol] Ordered By: Tanner Smallwood on 08-17-2024 Vancomycin Level Trough 15.2 ug/mL High 5.0-15.0 [facility] Comment on above: VANCOMYCIN STANDARED DRUG THERAPY TROUGH LEVEL: 5.0 - 15.0 mg/L VANCOMYCIN HIGH INTENSITY THERAPY TROUGH LEVEL: 15.0 - 20.0 mg/L High Intensity therapy recommended for serious lifethreatening infections include:- Pmyzvqpqav-Iwtyvbclwfyy-Pntcjngbf (Ventilator/Healtcare Associated)-Sepsis PLEASE CONTACT PHARMACY SERVICES (#[id number]) FOR INTERPRETATIONOF RESULTS. Vancomycin, Trough Levelon 0 08-17-2024 VANCO, TROUGH 15.2 ug/mL High 5.0-15.0 [facility] Comment on above: Order Comment: Comme nts: Trough to be drawn 30 mins prior to scheduled [id number] Result Comment: VANC OMYCIN STANDARED DRUG THERAPY TROUGH LEVEL: 5.0 - 15.0 mg/L VANCOMYCIN HIGH INTENSITY THERAPY TROUGH LEVEL: 15.0 - 20.0 mg/L High Intensity therapy recommended for serious life threatening infections include: - Meningitis -Endocarditis -Pneumonia (Ventilator/Healtcare Associated) -Sepsis PLEASE CONTACT PHARMACY SERVICES (#[id number]) FOR INTERPRETATION OF RESULTS. Performed By: #### L 501.080 #### [facility] [address] [place], [place], [address] Albumin to globulin ratioOrd ered By: Tanner Smallwood on 08-16-2024 Albumin/Globulin [Mass ratio] 1.0 {ratio} Normal 0.9-2.4 [facility] Comment on above: Performed By: #### L 500.4050, L100.0100, L501.2300 ####[facility] [address] [place], [address] Bedside Glucoseon 08-16-2024 FINGERSTICK GLU 230 mg/dL High 74-106 [facility] Comment on above: Result Comment: USMAN GEMENT OF PATIENT CARE PER NURSING PROTOCOL Performed By: #### L 501.080 #### [facility] [address] [place], [address] FINGERSTICK GLU 262 mg/dL High 74-106 [facility] Comment on above: Result Comment: USMAN GEMENT OF PATIENT CARE PER NURSING PROTOCOL Performed By: #### L 501.080 #### [facility] [address] [place], [address] FINGERSTICK GLU 253 mg/dL High 74-106 [facility] Comment on above: Result Comment: USMAN GEMENT OF PATIENT CARE PER NURSING PROTOCOL Performed By: #### L 501.080 #### [facility] [address] [place], [address] FINGERSTICK GLU 161 mg/dL High -106 [facility] Comment on above: Result Comment: USMAN GEMENT OF PATIENT CARE PER NURSING PROTOCOL Performed By: #### L 501.080 ####[facility] [address] [place], [address] Bilirubin, totalOrdered By: Tanner Smallwood on 08-16-2024 Bilirubin [Mass/Vol] 0.50 mg/dL Normal 0.20-1.00 [facility] Comment on above: For patients on eltr ombopag therapy, use of Dimension [place] TBIL is not recommended. Result Comment: For patients on eltrombopag therapy, use of Dimension [place] TBIL is not recommended. Performed By: #### L 500.4050, L100.0100, L501.2300 ####[facility] [address] [place], [address] CBC W/Diff, Automatedon Absolute Lymph 0.41 X10 3/uL Low 0.83-4.51 [facility] Comment on above: Performed By: #### L 500.4050, L100.0100, L501.2300 ####[facility] [address] [place], [address] Absolute Neut 4.6 X10 3/uL Normal 2.0-7.7 [facility] Comment on above: Performed By: #### L 500.4050, L100.0100, L501.2300 ####[facility] [address] [place], [address] Basophils/100 WBC (Bld) 0.5 % Normal 0-1 [facility] Comment on above: Performed By: #### L 500.4050, L100.0100, L501.2300 ####[facility] [address] [place], [address] Eosinophils/100 WBC (Bld) 0.2 % Normal 0-5 [facility] Comment on above: Performed By: #### L 500.4050, L100.0100, L501.2300 ####[facility] [address] [place], [address] Erythrocyte distribution width (RBC) [Ratio] 13.5 % Normal 11.6-14.6 [facility] Comment on above: Performed By: #### L 500.4050, L100.0100, L501.2300 ####[facility] [address] [place], [address] Hematocrit (Bld) [Volume fraction] 41.4 % Normal 40-54 [facility] Comment on above: Performed By: #### L 500.4050, L100.0100, L501.2300 ####[facility] [address] [place], [address] Hemoglobin (Bld) [Mass/Vol] 13.4 g/dL Normal 13.0-16.5 [facility] [facility] Comment on above: Performed By: #### L 500.4050, L100.0100, L501.2300 ####[facility] [address] [place], [address] IG% 0.500 Normal 0.0-0.9 [facility] Comment on above: Result Comment: IG% - Immature Granulocytes (promyelocytes, myelocytes and metamyelocytes) > 1% indicates that a LEFT SHIFT is Present. Performed By: #### L 500.4050, L100.0100, L501.2300 ####[facility] [address] [place], [address] Lymphocytes/100 WBC (Bld) 7.2 % Low 19-41 [facility] Comment on above: Performed By: #### L 500.4050, L100.0100, L501.2300 ####[facility] [address] [place], [address] MCH (RBC) [Entitic mass] 29.1 pg Normal 27.0-32.0 [facility] Comment on above: Performed By: #### L 500.4050, L100.0100, L501.2300 ####[facility] [address] [place], [address] MCHC (RBC) [Mass/Vol] 32.4 g/dL Normal 32-36 [facility] Comment on above: Performed By: #### L 500.4050, L100.0100, L501.2300 ####[facility] [address] [place], [address] MCV (RBC) [Entitic vol] 89.8 fL Normal 80-94 [facility] Comment on above: Performed By: #### L 500.4050, L100.0100, L501.2300 ####[facility] [address] [place], [address] Monocytes/100 WBC (Bld) 10.7 % High 0-10 [facility] Comment on above: Performed By: #### L 500.4050, L100.0100, L501.2300 ####[facility] [address] [place], [address] Neutrophils/100 WBC (Bld) 80.9 % High 47-70 [facility] Comment on above: Performed By: #### L 500.4050, L100.0100, L501.2300 ####[facility] [address] [place], [address] Nucleated RBC (Bld) [#/Vol] 0 10*3/uL Normal 0-5 [facility] Comment on above: Performed By: #### L 500.4050, L100.0100, L501.2300 ####[facility] [address] [place], [address] Platelet mean volume (Bld) [Entitic vol] 10.1 fL Normal 6.2-12.0 [facility] Comment on above: Performed By: #### L 500.4050, L100.0100, L501.2300 ####[facility] [address] [place], [address] Platelets (Bld) [#/Vol] 166 10*3/uL Normal 150-450 [facility] Comment on above: Performed By: #### L 500.4050, L100.0100, L501.2300 ####[facility] [address] [place], [address] RBC (Bld) [#/Vol] 4.61 10*6/uL Normal 4.6-6.2 [facility] Comment on above: Performed By: #### L 500.4050, L100.0100, L501.2300 ####[facility] [address] [place], [address] RDW SD 44.4 fl High 35.1-43.9 [facility] Comment on above: Performed By: #### L 500.4050, L100.0100, L501.2300 ####[facility] [address] [place], [address] WBC (Bld) [#/Vol] 5.7 10*3/uL Normal 4.4-11.0 [facility] Comment on above: Performed By: #### L 500.4050, L100.0100, L501.2300 ####[facility] [address] [place], [address] Chest 1 View (Portable)on Chest 1 View (Portable) [facility] Imaging Services [address] [place] [address] Chest 1 View (Portable) MR#: [id number] Acct: [id number] Name: MARY AGUIAR Rep #: [id number] : 1955 M 68 From: Luis E Gamez MD PCP: Dr. Rick Sow MD Status: ADM IN Study: Chest 1 View (Portable) Date of Exam: 08/16/24 Exam# [id number] Ordering Dr: Tanner Bah DO PROCEDURE: CHEST 1 VIEW (PORTABLE) REASON FOR EXAM: Influenza a and pneumonia. TECHNIQUE: Frontal view of the chest. COMPARISON: Yesterday, 08/16/2024 FINDINGS: Stable heart size. Atherosclerotic and tortuous aorta Right lower lobe opacities. Airspace consolidation in the lingula and left lower lobe. Elevation of the left hemidiaphragm. Blunting of the left lateral costophrenic angle. RAD/Chest 1 View (Portable) IMPRESSION: 1. Bilateral lung infiltrates. 2. Elevation of the left hemidiaphragm. Reading Location: [facility] CC: Dr. Tanner Bah DO; Dr. Rick Sow MD Marine Safety Officer: Signed Normal [facility] Comprehensive Metabolic Prof ilon 08-16-2024 ALK P 41 U/L Low 45-117 [facility] Comment on above: Performed By: #### L 500.4050, L100.0100, L501.2300 ####[facility] [address] [place], [address] BUN/CRE 16.0 RATIO Normal 10-20 [facility] Comment on above: Performed By: #### L 500.4050, L100.0100, L501.2300 ####[facility] [address] [place], [address] CA,Total 7.3 mg/dL Low 8.5-10.1 [facility] Comment on above: Performed By: #### L 500.4050, L100.0100, L501.2300 ####[facility] [address] [place], [address] Chloride [Moles/Vol] 105 mmol/L Normal 98-107 [facility] Comment on above: Performed By: #### L 500.4050, L100.0100, L501.2300 ####[facility] [address] [place], [address] CO2 [Moles/Vol] 25.0 mmol/L Normal 21.0-32.0 [facility] Comment on above: Performed By: #### L 500.4050, L100.0100, L501.2300 ####[facility] [address] [place], [address] Creatinine [Mass/Vol] 1.06 mg/dL Normal 0.70-1.30 [facility] Comment on above: Result Comment: The validity of the calculated GFR GFRAA in patients over 70 years has not been determined. Clinical correlation is essential. Performed By: #### L 500.4050, L100.0100, L501.2300 ####[facility] [address] [place], [address] ECRCL 100.14 ml/min Normal [facility] Comment on above: Performed By: #### L 500.4050, L100.0100, L501.2300 ####[facility] [address] [place], [address] EST GFR - AA 89 mL/min Normal >60 [facility] Comment on above: Result Comment: Afri can Afghan GFR Calc Performed By: #### L 500.4050, L100.0100, L501.2300 ####[facility] [address] [place], [address] GAP 7 Normal 5-15 [facility] Comment on above: Performed By: #### L 500.4050, L100.0100, L501.2300 ####[facility] [address] [place], [address] GFR/1.73 sq M.predicted among non-blacks MDRD (S/P/Bld) [Vol rate/Area] 73 mL/min/{1.73_m2} Normal >60 [facility] Comment on above: Result Comment: Non- GFR Calc Performed By: #### L 500.4050, L100.0100, L501.2300 ####[facility] [address] [place], [address] Glucose [Mass/Vol] 149 mg/dL High 74-106 [facility] Comment on above: Result Comment: Fast ing Glucose result greater than or equal to 126 mg/dL suggests DIABETES MELLITUS per A.D.A. criteria. Performed By: #### L 500.4050, L100.0100, L501.2300 ####[facility] [address] [place], [address] Potassium [Moles/Vol] 3.7 mmol/L Normal 3.5-5.1 [facility] Comment on above: Performed By: #### L 500.4050, L100.0100, L501.2300 ####[facility] [address] [place], [address] Sodium [Moles/Vol] 137 mmol/L Normal 136-145 [facility] Comment on above: Performed By: #### L 500.4050, L100.0100, L501.2300 ####[facility] [address] [place], [address] T PROT 6.5 g/dL Normal 6.4-8.2 [facility] Comment on above: Performed By: #### L 500.4050, L100.0100, L501.2300 ####[facility] [address] [place], [address] Urea nitrogen [Mass/Vol] 17 mg/dL Normal 7-18 [facility] Comment on above: Performed By: #### L 500.4050, L100.0100, L501.2300 ####[facility] [address] [place], [address] Comprehensive Metabolic Prof ilOrdered By: Tanner Smallwood on 08-16-2024 AST [Catalytic activity/Vol] 22 U/L Normal 15-37 [facility] Comment on above: Performed By: #### L 500.4050, L100.0100, L501.2300 ####[facility] [address] [place], [address] Gram stainOrdered By: Tanner Smallwood on 08-16-2024 Microscopic observation Gram stain Nom (Unsp spec) [facility] Hemoglobin A1con 08-16-2024 HbA1c (Bld) [Mass fraction] 6.7 % High 3.8-5.6 [facility] Comment on above: Result Comment: Norm al < 5.7 % Prediabetic 5.7 - 6.4 % Diabetic >or= 6.5 % Please note range changes. Performed By: #### L 501.4020, L501.9985, L501.5200, L501.9520 ####[facility] [address] [place], [address] High density lipoprotein (HD L) measurementOrdered By: Tanner Smallwood on 08-16-2024 Cholesterol in HDL [Mass/Vol] 40 mg/dL Normal [facility] Comment on above: The drugs N-Acetylcy steine and Metamizole may falsely depress this assay. Reference Range HDL <40 mg/dL Low HDL Cholesterol HDL >or= 60 mg/dL High HDL Cholesterol Result Comment: The drugs N-Acetylcysteine and Metamizole may falsely depress this assay. Reference Range HDL <40 mg/dL Low HDL Cholesterol HDL >or= 60 mg/dL High HDL Cholesterol Performed By: #### L 500.4100 ####[facility] [address] [place], [place], [address] L. pneumophila Ag Ql (U)Orde red By: Tanner Smallwood on 08-16-2024 Legionella Antigen [facility] L501.4020on 08-16-2024 TROPONIN-I HS 15 pg/mL Normal 3.0-78.0 [facility] Comment on above: Order Comment: 'TROP ' Serial specimen #1, #2 or #3: 2 Result Comment: Plea se Note: New Test Units and Gender Specific Reference Ranges. For more information see Policy Stat Procedure [place] High Sensitivity Troponin (TNIH) and attachments. Performed By: #### L 501.4020, L501.9985, L501.5200, L501.9520 ####[facility] [address] [place], [place], [address] Lactic Acidon 08-16-2024 Lactate [Moles/Vol] 1.8 mmol/L Normal 0.4-1.9 [facility] Comment on above: Performed By: #### L 503.6005 ####[facility] [address] [place], [place], [address] Lactic acid measurementOrder ed By: Vera Orta on 08-16-2024 Lactate [Moles/Vol] 1.8 mmol/L 0.4-2.0 [facility] Legionella Antigen Urineon 0 08-16-2024 LEGU URINE, CLEAN CATCH Legionella Antigen result interpretation: L pneumo Ag Ur Ql Negative Presumptive negative for Legionella pneumophila serogroup 1 antigen in urine, suggesting no recent or current infection. Legionella Ag, Urine Negative (See interpretation below) Normal [facility] Comment on above: Performed By: #### M 300.4600, M300.4500 ####[facility] [address] [place], [address] Lipid Profileon 08-16-2024 Cholesterol in VLDL [Mass/Vol] 13 mg/dL Normal 5-40 [facility] Comment on above: Performed By: #### L 500.4100 ####[facility] [address] [place], [address] Low density lipoprotein (LDL ) cholesterol measurementOrdered By: Tanner Smallwood on 08-16-2024 Cholesterol in LDL [Mass/Vol] 32 mg/dL Normal 0-130 [facility] Comment on above: Performed By: #### L 500.4100 ####[facility] [address] [place], [address] M100.019on 08-16-2024 M100.019 Negative Normal [facility] Comment on above: Performed By: #### M 100.638, M100.019 ####[facility] [address] [place], [address] Magnesiumon 08-16-2024 Magnesium [Mass/Vol] 1.7 mg/dL Normal 1.6-2.6 [facility] Comment on above: Order Comment: 'TROP ' Serial specimen #1, #2 or #3: 2 Performed By: #### L 501.4020, L501.9985, L501.5200, L501.9520 ####[facility] [address] [place], [address] Microbial respiratory cultur eOrdered By: Tanner Smallwood on 08-16-2024 Microorganism identified Cx Nom (Unsp spec) or Staphylococcus aureus isolated. [facility] Microorganism identified Cx Nom (Unsp spec)Ordered By: Tanner Smallwood on 08-16-2024 Respiratory Culture or Staphylococcus au reus isolated. [facility] Phosphoruson 08-16-2024 Phosphate [Mass/Vol] 3.6 mg/dL Normal 2.5-4.9 [facility] Comment on above: Performed By: #### L 500.4050, L100.0100, L501.2300 ####[facility] [address] [place], [address] RESPIRATORY PANEL MOLECULARo n 08-16-2024 RP PANEL Normal Reference Ran ge = Not Detected Resp path DNA+RNA Pnl Resp LEO+probe Nucleic acid amplification test method RESULTS CALLED TO [id number] 08/16/24 Andre Cantu. REPORT READ BACK BY SAME. Copy of report sent to Infection Control Printer [id number] 08/16/24 Andre STEPHANIE. ADENOVIRUS Not Detected INFLUENZA A A Positive for INFLUENZA A by NAAT technology A INFLUENZA A (SUBTYPE H1) A Positive for INFLUENZA A SUBTYPE H1 by NAAT technologyA INFLUENZA A (SUBTYPE H3) Not Detected INFLUENZA B Not Detected HUMAN METAPHNEUMO Not Detected PARAINFLUENZA 1 Not Detected PARAINFLUENZA 2 Not Detected PARAINFLUENZA 3 Not Detected PARAINFLUENZA 4 Not Detected RHINOVIRUS Not Detected RSV A Not Detected RSV B Not Detected INFLUENZA A (SUBTYPE H1) Normal [facility] Comment on above: Performed By: #### M 100.638, M100.019 ####[facility] [address] [place], [place], [address] Respiratory pathogens DNA an d RNA panel LEO+probe (Resp)Ordered By: Mack An on 08-16-2024 Respiratory Panel (PCR) Influenza A (Subtype H1) Abnormal [facility] Respiratory pathogens detect ion panel by molecular detection methodOrdered By: Mack An on 08-16-2024 Respiratory pathogens DNA and RNA panel LEO+probe (Resp) Influenza A (Subtype H1) Abnormal [facility] Ihmo-nvt-1Vbsnciz By: Radha An on 08-16-2024 SARS-CoV-2 (COVID-19) RNA LEO+probe Ql (Unsp spec) [facility] Serum globulin measurementOr dered By: Tanner Smallwood on 08-16-2024 Globulin (S) [Mass/Vol] 3.3 g/dL Normal 2.2-4.2 [facility] Comment on above: Performed By: #### L 500.4050, L100.0100, L501.2300 ####[facility] [address] [place], [address] Serum or plasma alanine frias otransferase (ALT) measurementOrdered By: Tanner Smallwood on 08-16-2024 ALT [Catalytic activity/Vol] 26 U/L Normal 16-61 [facility] Comment on above: Performed By: #### L 500.4050, L100.0100, L501.2300 ####[facility] [address] [place], [address] Serum or plasma albumin melva urement (mass/volume)Ordered By: Tanner Smallwood on 08-16-2024 Albumin [Mass/Vol] 3.2 g/dL Normal 3.2-5.0 [facility] Comment on above: Performed By: #### L 500.4050, L100.0100, L501.2300 ####[facility] [address] [place], [address] Serum or plasma alkaline teresa sphatase measurementOrdered By: Tanner Smallwood on 08-16-2024 ALP [Catalytic activity/Vol] 41 U/L Low 45-117 [facility] Serum or plasma cholesterol measurement (mass/volume)Ordered By: Tanner Smallwood on 08-16-2024 Cholesterol [Mass/Vol] 85 mg/dL Normal 200 [facility] Comment on above: <200 mg/dL Desirable 200-240 mg/dL Borderline >240 mg/dL High Risk Result Comment: <200 mg/dL Desirable 200-240 mg/dL Borderline >240 mg/dL High Risk Performed By: #### L 500.4100 ####[facility] [address] [place], [address] Strep pneumoniae Antig(UR,CS F)on 08-16-2024 STPAG URINE INTERPRETATION Strep pneumoniae Antig(UR,CSF) Negative Urine Presumptive negative for pneumococcal pneumonia, suggesting no current or recent pneumococcal infection. Infection due to S pneumoniae cannot be ruled out since the antigen present in the sample may be below the detection limit of the test. Strep pneumo Test Negative URINE (See interpretation below) Normal [facility] Comment on above: Performed By: #### M 300.4600, M300.4500 ####[facility] [address] [place], [address] Streptococcus pneumoniae ant igen assayOrdered By: Tanner Smallwood on 08-16-2024 Streptococcus pneumoniae Antigen (M [facility] Thyroid Stim Hormone (TSH)on 08-16-2024 TSH 0.461 uIU/mL Normal 0.358-3.740 [facility] Comment on above: Order Comment: 'TROP ' Serial specimen #1, #2 or #3: 2 Performed By: #### L 501.4020, L501.9985, L501.5200, L501.9520 ####[facility] [address] [place], [place], [address] Total proteinOrdered By: Hardik Smallwood on 08-16-2024 Protein [Mass/Vol] 6.5 g/dL 6.4-8.2 [facility] Triglycerides measurementOrd ered By: Tanner Smallwood on 08-16-2024 Triglyceride [Mass/Vol] 65 mg/dL Normal [facility] Comment on above: The drugs N-Acetylcy steine and Metamizole may falsely depress this assay.Serum Triglycerides Reference Interval Normal <150 mg/dL Borderline high 150 - 199 mg/dL High 200 - 499 mg/dL Very High > or = 500 mg/dL Result Comment: The drugs N-Acetylcysteine and Metamizole may falsely depress this assay. Serum Triglycerides Reference Interval Normal <150 mg/dL Borderline high 150 - 199 mg/dL High 200 - 499 mg/dL Very High > or = 500 mg/dL Performed By: #### L 500.4100 ####[facility] [address] [place], [address] Urinalysis, Completeon 08-16 BACTERIA 0 SEEN Normal None Seen [facility] Comment on above: Order Comment: REBECCA CTOR TO SPECIFY Performed By: #### L 501.080 #### [facility] [address] [place], [address] EPI,SQUAMOUS 0 SEEN Normal 0-5 [facility] Comment on above: Order Comment: REBECCA CTOR TO SPECIFY Performed By: #### L 501.080 #### [facility] [address] [place], [address] Mucus Ql (Urine sed) 0 SEEN Normal [facility] Comment on above: Order Comment: REBECCA CTOR TO SPECIFY Performed By: #### L 501.080 #### [facility] [address] [place], [address] RBC 0 SEEN Normal [address] Comment on above: Order Comment: REBECCA CTOR TO SPECIFY Performed By: #### L 501.080 #### [facility] [address] [place], [address] WBC 0 SEEN Normal [address] Comment on above: Order Comment: REBECCA CTOR TO SPECIFY Performed By: #### L 501.080 #### [facility] [address] [place], [address] Urine Legionella pneumophila antigen detectionOrdered By: Tanner Smallwood on 08-16-2024 L. pneumophila Ag Ql (U) [facility] Very low density lipoprotein (VLDL) cholesterol measurementOrdered By: Tanner Smallwood on 08-16-2024 Very low density lipoprotein (VLDL) cholesterol measurement 13 mg/dL 5-40 [facility] VLDL Cholesterol 13 mg/dL 5-40 [facility] 12 Lead EKGon 08-15-2024 12 Lead EKG [facility] Services [address] [place] [address] 12 Lead EKG 08/15/24 2158 MR#: [id number] Acct: [id number] Name: MARY AGUIAR Rep #: [id number] : 1955 68 From: Sanchez Lua MD Attending Dr: Dr. Mack An MD Status: ADM IN Ordering Dr: Vera Orta DO Date: 08/15/24 Location: ICU Sex: M C Admitted: 08/15/24 Test Reason : Blood Pressure : */* mmHG Vent. Rate : 100 BPM Atrial Rate : 100 BPM P-R Int : 144 ms QRS Dur : 94 ms QT Int : 338 ms P-R-T Axes : 60 5 18 degrees QTcB Int : 436 ms Normal sinus rhythm Normal ECG Confirmed by SANCHEZ LUA MD ([id number]), video tape editor SEB SORIANO ([id number]) on 08/17/2024 8:19:59 AM Referred By: Confirmed By: SANCHEZ LUA MD 08/17/24 0820 Date Sanchez Lua MD CC: Dr. Vera Orta DO; Dr. Rick Sow MD; Dr. Mack An MD Signed Normal [facility] BNP (brain natriuretic pepti de measurement)Ordered By: Vera Orta on 08-15-2024 Natriuretic peptide B (Bld) [Mass/Vol] 15.7 pg/mL 0-100 [facility] BNP,B-Type NATRIURETIC PEPTI Agata 08-15-2024 Natriuretic peptide B (Bld) [Mass/Vol] 15.7 pg/mL Normal 0-100 [facility] Comment on above: Performed By: #### L 501.080 #### [facility] [address] [place], [place] [address] [place], [address] Bilirubin Test strip Ql (U)O rdered By: Tanner Smallwood on 08-15-2024 Bilirubin Ql (U) Negative Negative [facility] CBC W/Diff, Automatedon Absolute Lymph 0.52 X10 3/uL Low 0.83-4.51 [facility] Comment on above: Performed By: #### L 501.080 #### [facility] [address] [place], [address] Absolute Neut 5.5 X10 3/uL Normal 2.0-7.7 [facility] Comment on above: Performed By: #### L 501.080 #### [facility] [address] [place], [address] Basophils/100 WBC (Bld) 0.6 % Normal 0-1 [facility] Comment on above: Performed By: #### L 501.080 #### [facility] [address] [place], [address] Eosinophils/100 WBC (Bld) 0.6 % Normal 0-5 [facility] Comment on above: Performed By: #### L 501.080 #### [facility] [address] [place], [address] Erythrocyte distribution width (RBC) [Ratio] 13.2 % Normal 11.6-14.6 [facility] Comment on above: Performed By: #### L 501.080 #### [facility] [address] [place], [address] Hematocrit (Bld) [Volume fraction] 44.8 % Normal 40-54 [facility] Comment on above: Performed By: #### L 501.080 #### [facility] [address] [place], [address] Hemoglobin (Bld) [Mass/Vol] 14.8 g/dL Normal 13.0-16.5 [facility] Comment on above: Performed By: #### L 501.080 #### [facility] [address] [place], [address] IG% 0.400 Normal 0.0-0.9 [facility] Comment on above: Result Comment: IG% - Immature Granulocytes (promyelocytes, myelocytes and metamyelocytes) > 1% indicates that a LEFT SHIFT is Present. Performed By: #### L 501.080 #### [facility] [address] [place], [address] Lymphocytes/100 WBC (Bld) 7.6 % Low 19-41 [facility] Comment on above: Performed By: #### L 501.080 #### [facility] [address] [place], [address] MCH (RBC) [Entitic mass] 29.0 pg Normal 27.0-32.0 [facility] Comment on above: Performed By: #### L 501.080 #### [facility] [address] [place], [address] MCHC (RBC) [Mass/Vol] 33.0 g/dL Normal 32-36 [facility] Comment on above: Performed By: #### L 501.080 #### [facility] [address] [place], [address] MCV (RBC) [Entitic vol] 87.7 fL Normal 80-94 [facility] Comment on above: Performed By: #### L 501.080 #### [facility] [address] [place], [address] Monocytes/100 WBC (Bld) 10.4 % High 0-10 [facility] Comment on above: Performed By: #### L 501.080 #### [facility] [address] [place], [address] Neutrophils/100 WBC (Bld) 80.4 % High 47-70 [facility] Comment on above: Performed By: #### L 501.080 #### [facility] [address] [place], [address] Nucleated RBC (Bld) [#/Vol] 0 10*3/uL Normal 0-5 [facility] Comment on above: Performed By: #### L 501.080 #### [facility] [address] [place], [address] Platelet mean volume (Bld) [Entitic vol] 10.1 fL Normal 6.2-12.0 [facility] Comment on above: Performed By: #### L 501.080 #### [facility] [address] [place], [address] Platelets (Bld) [#/Vol] 219 10*3/uL Normal 150-450 [facility] Comment on above: Performed By: #### L 501.080 #### [facility] [address] [place], [address] RBC (Bld) [#/Vol] 5.11 10*6/uL Normal 4.6-6.2 [facility] Comment on above: Performed By: #### L 501.080 #### [facility] [address] [place], [address] RDW SD 41.9 fl Normal 35.1-43.9 [facility] Comment on above: Performed By: #### L 501.080 #### [facility] [address] [place], [address] WBC (Bld) [#/Vol] 6.8 10*3/uL Normal 4.4-11.0 [facility] Comment on above: Performed By: #### L 501.080 #### [facility] [address] [place], [address] CNOVon 08-15-2024 CNOV Office Visit (UCWSTR ) -- COSMEMARY ([id number]) 1955 M Date Time Provider Department 08/15/24 1:45 PM JHON NAVA [facility] During your visit today, we recorded the following information about you: Temperature Pulse Respiration Blood pressure 101.8 degrees 98/minute 22/minute 194/76 Weight 152.8 kg Jhon Nava MD 08/15/2024 2:25 PM Signed Patient presents with: Cough: X 1 week, sob x 1month HPI: Feeling sick starting 3 nights ago. Fever since last night. He has had a cough for several weeks. Positive symptoms: Cough, Shortness of breath, Nasal Congestion, Rhinorrhea, Fever, Chills, Body Aches, Malaise, Fatigue, Negative symptoms: Chest pain, Sore throat, Nausea, Vomiting, Diarrhea, OTC: Lozenges MEDICATIONS: Current Outpatient Medications Medication Sig cyclobenzaprine (FLEXERIL) 10 mg tablet Take 1 tablet by mouth three times a day as needed for muscle spasm. amLODIPine (NORVASC) 10 mg tablet Take 1 tablet by mouth once daily. atorvastatin (LIPITOR) 20 mg tablet Take 1 tablet by mouth once daily. For cholesterol. glimepiride (AMARYL) 4 mg tablet Take 1 tab twice a day. hydroCHLOROthiazide 25 mg tablet Take 1 tablet by mouth once daily. losartan (COZAAR) 50 mg tablet Take 2 tablets by mouth once daily. metFORMIN (GLUCOPHAGE) 1,000 mg tablet Take 1 tablet by mouth two times a day with meals. ammonium lactate (LAC-HYDRIN) 12 % cream Apply to affected area as needed. blood sugar diagnostic (BLOOD GLUCOSE TEST) test strip Test blood sugar(s) 1-2 times daily. Dx: Type 2 DM - Uncontrolled E11.65 Insulin: No Lancets lancets Test blood sugar(s) 1-2 times daily. Dx: Type 2 DM - Uncontrolled E11.65 Insulin: No Aspirin 81 mg tab Take 1 tablet by mouth once daily. Take with food. Meridian-3 Fatty Acids-Vitamin E (FISH OIL) 1,000 mg cap Take 1 capsule by mouth once daily. MULTI-VITAMIN ORAL Take by mouth. pioglitazone (ACTOS) 15 mg tablet Take 1 tablet by mouth once daily. (Patient not taking: Reported on 08/15/2024) No current facility-administered medications for this visit. ALLERGIES: ALLERGIES Allergen Reactions Actos [Pioglitazone] Shortness of Breath Farxiga [Dapagliflo* Other: See Comments tachycardi and felt poorly on it. Lisinopril Cough VITALS: BP 194/76 Pulse 98 Temp (!) 38.8 ?C (101.8 ?F) Resp 22 Wt (!) 152.8 kg (336 lb 13.8 oz) SpO2 92% BMI 45.69 kg/m? PHYSICAL EXAM: GEN: mildly ill appearing HEENT: PERRL, EOMI, conjunctiva clear Ears: canals clear. TMs without erythema, bulge, or effusion Sinuses: non-tender frontal sinus, non-tender maxillary sinuses Throat: moist mucous membranes, mild erythema, no exudate Neck: supple, no thyromegaly, no lymphadenopathy HEART: regular rate, regular rhythm, no murmurs LUNGS: clear to auscultation, no wheezes or crackles, no increased WOB ASSESSMENT/PLAN: 1. Influenza A - ICD9: 487.1, ICD10: J10.1 (primary diagnosis) 2. Influenza-like illness - ICD9: 487.1, ICD10: J11.1 - INFLUENZA AANDB MOLECULAR (POC) -positive for influenza A. - Discussed supportive care treatment with rest, cough and cold medicine, and analgesia. - Use albuterol nebulizer at home. Follow up in the ER with worsening cough, worsening shortness of breath, increasing chest pain, or lethargy. Jhon Nava MD Allergies As of Date: 08/15/2024 Noted Allergy Reaction ACTOS (PIOGLITAZONE) 07/06/2024 12 - Shortness of Breath FARXIGA (DAPAGLIFLOZIN) 05/16/2023 14 - Other: See Comments Comments: tachycardi and felt poorly on it. LISINOPRIL 10/30/2007 3 - Cough Date Reviewed: 08/15/2024 Reviewed by: Fabiana Stout MA - Fully Assessed Reason for Visit: Cough [28] Cmt: X 1 week, sob x 1month Primary Visit Diagnosis:Influenza A [J10.1] Other Visit Diagnosis:Influenza-like illness [J11.1] Order(s):INFLUENZA AANDB MOLECULAR (POC) [9238626] Order #: [id number] #:[id number] Prescriptions as of 08/15/2024 - cyclobenzaprine (FLEXERIL) 10 mg tablet Take 1 tablet by mouth three times a day as needed for muscle spasm. - amLODIPine (NORVASC) 10 mg tablet Take 1 tablet by mouth once daily. - atorvastatin (LIPITOR) 20 mg tablet Take 1 tablet by mouth once daily. For cholesterol. - glimepiride (AMARYL) 4 mg tablet Take 1 tab twice a day. - hydroCHLOROthiazide 25 mg tablet Take 1 tablet by mouth once daily. - losartan (COZAAR) 50 mg tablet Take 2 tablets by mouth once daily. - metFORMIN (GLUCOPHAGE) 1,000 mg tablet Take 1 tablet by mouth two times a day with meals. - pioglitazone (ACTOS) 15 mg tablet Take 1 tablet by mouth once daily. - ammonium lactate (LAC-HYDRIN) 12 % cream Apply to affected area as needed. - blood sugar diagnostic (BLOOD GLUCOSE TEST) test strip Test blood sugar(s) 1-2 times daily. Dx: Type 2 DM - Uncontrolled E11.65 Insulin: No - Lancets lancets Test blood sugar( (more content not included)... Normal [facility] CTA Chest W/WO Contraston CTA Chest W/WO Contrast [facility] Imaging Services [address] [place] [id number] CTA Chest W/WO Contrast MR#: [id number] Acct: [id number] Name: MARY AGUIAR Rep #: [id number] : 1955 M 68 From: Guzman Santos DO PCP: Dr. Rick Sow MD Status: ADM IN Study: CTA Chest W/WO Contrast Date of Exam: 08/15/24 Exam# [id number] Ordering Dr: Vera Orta DO PROCEDURE: CTA CHEST with IV CONTRAST REASON FOR EXAM: Shortness of the breath. TECHNIQUE: CTA imaging of the chest with intravenous contrast. 3D reconstructions. COMPARISON: Chest x-ray from 08/15/2024. FINDINGS: There is suboptimal contrast opacification of the pulmonary arterial vasculature limiting assessment for pulmonary embolism. However, no definite central pulmonary embolism is seen. Cardiac size is within normal limits. Thoracic aorta demonstrates normal caliber with atherosclerotic calcifications. Coronary artery calcifications are identified. There are small mediastinal lymph nodes. No pericardial or pleural effusions identified. Evaluation of the lung parenchyma demonstrates airspace opacities in the lingula and left lower lobe. Additionally, there is mild ground-glass attenuation in the right middle lobe and right lower lobe. Central airway is patent. No pneumothorax is identified. Upper abdomen demonstrates no acute findings. Evaluation of the osseous structures demonstrates degenerative changes. CT/CTA Chest W/WO Contrast IMPRESSION: 1. Suboptimal contrast opacification of the pulmonary arterial vasculature limited assessment for pulmonary embolism. However, no definite central pulmonary embolism is identified. 2. Airspace opacities in the lingula and left lower lobe and mild ground-glass attenuation in the right middle lobe and right lower lobe likely on an infectious inflammatory basis. One or more dose reduction techniques were used (e.g., Automated exposure control, adjustment of the mA and/or kV according to patient size, use of iterative reconstruction technique). Reading Location: [facility] CC: Dr. Vera Orta DO; Dr. Rick Sow MD Marine Safety Officer: Signed Normal [facility] Carotid Duplex Ultrasoundon 08-15-2024 Carotid Duplex Ultrasound [facility] Cardiovascular Services [address] [place] [address]. [place] [address] Carotid Duplex Ultrasound 08/17/24 0938 MR#: [id number] Acct: [id number] Name: MARY AGUIAR Rep #: [id number] : 1955 68 From: Luis E Rahman MD Attending Dr: Dr. Mack An MD Status: ADM IN Ordering Dr: Tanner Bah DO Date: 08/15/24 Location: ICU Sex: M C Admitted: 08/15/24 Reason For Study: Syncope Rt. Velocities/BP Lt. Velocities/BP Prox CCA 94.9/15.7 cm/sec. Prox CCA 108.3/15.2 cm/sec. Mid CCA 88.3/12.4 cm/sec. Mid CCA 104.7/17 cm/sec. Dist CCA 87.2/16.8 cm/sec. Dist CCA 101/13.3 cm/sec. Prox ICA 84.6/17 cm/sec. Prox ICA 165.3/27 cm/sec. Mid ICA 104.7/22.5 cm/sec. Mid ICA 95.1/16 cm/sec. Dist ICA 88.2/27.9 cm/sec. Dist ICA 75.2/14.3 cm/sec. Rt. ICA/CCA = 1.19. Lt. ICA/CCA = 1.58. Prox ECA 133.9/13.3 cm/sec. Prox ECA 208.1/16.3 cm/sec. Rt. Vert. 55.3/17 cm/sec. Lt. Vert. 75.4/20.6 cm/sec. Right Extracranial There is intimal thickening but no significant atherosclerotic plaque noted in the right common carotid artery. There is heterogeneous, irregular atherosclerotic plaque noted in the right internal carotid artery. There is heterogeneous, irregular atherosclerotic plaque noted in the right external carotid artery. Antegrade flow is noted in the right vertebral artery. Left Extracranial There is heterogeneous, irregular atherosclerotic plaque noted in the left common carotid artery. There is heterogeneous, irregular atherosclerotic plaque noted in the left internal carotid artery. There is heterogeneous, irregular atherosclerotic plaque noted in the left external carotid artery. Antegrade flow is noted in the left vertebral artery. Procedure Carotid Duplex 23284. This is a Carotid Duplex examination using B-mode, color flow and specral Doppler. Exam performed portable in ICU/CCU. VL/Carotid Duplex Ultrasound Interpretation Summary Mild (<50%) stenosis right extracranial internal carotid. Moderate (50-69%) stenosis left extracranial internal carotid. Patent and antegrade vertebrals bilaterally. Ordering Physician: Tanner Bah Referring Physician: Rick Sow Performed By: Tracy Esparza RVYash 08/17/24 1230 Date Luis E Rahman MD CC: Dr. Tanner Bah DO; Dr. Rick Sow MD; Dr. Mack An MD Date Dictated: 08/17/24 0938 Date Transcribed: 08/17/24 1230 Marine Safety Officer: Signed Normal [facility] Chest PA and Lateralon 08-15 Chest PA and Lateral [facility] Imaging Services [address] [place], [place] [id number] Chest PA and Lateral MR#: [id number] Acct: [id number] Name: MARY AGUIAR Rep #: [id number] : 1955 M 68 From: Luis E Gamez MD PCP: Dr. Rick Sow MD Status: [facility] ER Study: Chest PA and Lateral Date of Exam: 08/15/24 Exam# [id number] Ordering Dr: Vera Orta DO PROCEDURE: CHEST PA AND LATERAL REASON FOR EXAM: Syncope. TECHNIQUE: Frontal and lateral views of the chest. COMPARISON: None. FINDINGS: The heart size is normal. The mediastinal contour is unremarkable. Aorta is atherosclerotic and tortuous. Subsegmental atelectasis and/or parenchymal scarring in the left mid lung. Elevation of the left hemidiaphragm. Multilevel spondylosis. RAD/Chest PA and Lateral IMPRESSION: Subsegmental atelectasis and/or scarring, left midlung. Otherwise no active cardiopulmonary disease. Reading Location: [facility] CC: Dr. Vera Orta DO; Dr. Rick Sow MD Marine Safety Officer: Signed Normal [facility] Comprehensive Metabolic Prof ilon 08-15-2024 Albumin [Mass/Vol] 3.7 g/dL Normal 3.2-5.0 [facility] Comment on above: Performed By: #### L 501.080 #### [facility] [address] [facility] [place], [place], [id number] Albumin/Globulin [Mass ratio] 1.0 {ratio} Normal 0.9-2.4 [facility] Comment on above: Performed By: #### L 501.080 #### [facility] [address] [place], [address] ALK P 51 U/L Normal 45-117 [facility] Comment on above: Performed By: #### L 501.080 #### [facility] [address] [place], [address] ALT [Catalytic activity/Vol] 30 U/L Normal 16-61 [facility] Comment on above: Performed By: #### L 501.080 #### [facility] [address] [place], [address] AST [Catalytic activity/Vol] 18 U/L Normal 15-37 [facility] Comment on above: Performed By: #### L 501.080 #### [facility] [address] [place], [address] Bilirubin [Mass/Vol] 0.70 mg/dL Normal 0.20-1.00 [facility] Comment on above: Result Comment: For patients on eltrombopag therapy, use of Dimension [place] TBIL is not recommended. Performed By: #### L 501.080 #### [facility] [address] [place], [address] BUN/CRE 12.9 RATIO Normal 10-20 [facility] Comment on above: Performed By: #### L 501.080 #### [facility] [address] [place], [address] CA,Total 8.5 mg/dL Normal 8.5-10.1 [facility] Comment on above: Performed By: #### L 501.080 #### [facility] [address] [place], [address] Chloride [Moles/Vol] 98 mmol/L Normal 98-107 [facility] Comment on above: Performed By: #### L 501.080 #### [facility] [address] [place], [address] CO2 [Moles/Vol] 26.0 mmol/L Normal 21.0-32.0 [facility] Comment on above: Performed By: #### L 501.080 #### [facility] [address] [place], [address] Creatinine [Mass/Vol] 1.39 mg/dL High 0.70-1.30 [facility] Comment on above: Result Comment: The validity of the calculated GFR GFRAA in patients over 70 years has not been determined. Clinical correlation is essential. Performed By: #### L 501.080 #### [facility] [address] [place], [address] ECRCL 76.09 ml/min Normal [facility] Comment on above: Performed By: #### L 501.080 #### [facility] [address] [place], [address] EST GFR - AA 65 mL/min Normal >60 [facility] Comment on above: Result Comment: Afri can Afghan GFR Calc Performed By: #### L 501.080 #### [facility] [address] [place], [address] GAP 9 Normal 5-15 [facility] Comment on above: Performed By: #### L 501.080 #### [facility] [address] [place], [address] GFR/1.73 sq M.predicted among non-blacks MDRD (S/P/Bld) [Vol rate/Area] 54 mL/min/{1.73_m2} Low >60 [facility] Comment on above: Result Comment: Non- GFR Calc Performed By: #### L 501.080 #### [facility] [address] [place], [address] Globulin (S) [Mass/Vol] 3.8 g/dL Normal 2.2-4.2 [facility] Comment on above: Performed By: #### L 501.080 #### [facility] [address] [place], [address] Glucose [Mass/Vol] 195 mg/dL High 74-106 [facility] Comment on above: Result Comment: Fast ing Glucose result greater than or equal to 126 mg/dL suggests DIABETES MELLITUS per A.D.A. criteria. Performed By: #### L 501.080 #### [facility] [address] [place], [address] Potassium [Moles/Vol] 3.8 mmol/L Normal 3.5-5.1 [facility] Comment on above: Performed By: #### L 501.080 #### [facility] [address] [place], [address] Sodium [Moles/Vol] 134 mmol/L Low 136-145 [facility] Comment on above: Performed By: #### L 501.080 #### [facility] [address] [place], [address] T PROT 7.5 g/dL Normal 6.4-8.2 [facility] Comment on above: Performed By: #### L 501.080 #### [facility] [address] [place], [address] Urea nitrogen [Mass/Vol] 18 mg/dL Normal 7-18 [facility] Comment on above: Performed By: #### L 501.080 #### [facility] [address] [place], [address] Echo Complete W/ Contraston 08-15-2024 Echo Complete W/ Contrast [facility] Cardi[facility] Services [address] [place] [address] Echo Complete W/ Contrast 08/17/24 1019 MR#: [id number] Acct: [id number] Name: MARY AGUIAR Rep #: [id number] : 1955 68 From: Sanchez Lua MD Attending Dr: Dr. Mack An MD Status: ADM IN Ordering Dr: Tanner Bah DO Date: 08/15/24 Location: ICU Sex: M C Admitted: 08/15/24 Reason For Study: SYNCOPE Procedure This was a 2D Doppler, Color Flow transthoracic echocardiogram. The study was technically difficult. Contrast injection was performed. Exam performed portable in ICU/CCU. Left Ventricle Normal LV size. Mild concentric left ventricular hypertrophy. Left ventricular systolic function is normal. The left ventricular ejection fraction is 65 %. No regional wall motion abnormalities noted. Right Ventricle Normal RV size. Normal systolic function. Atria Normal left atrium. Normal right atrium. Mitral Valve Mitral valve not well visualized. Tricuspid Valve The tricuspid valve is not well visualized. Aortic Valve Trisinus/trileaflet aortic valve. Mild focal aortic valve thickening. Pulmonic Valve The pulmonic valve is not well visualized. Great Vessels Normal aortic root. The pulmonary artery is normal size. Inferior vena cava collapse with respiration. Pericardium/Pleural No pericardial effusion. Medication Diluted definity 1ml given slow IV push to enhance endocardial definition. MMode/2D Measurements Calculations LVIDd: 4.9 cm IVSd: 1.2 cm LAV(MOD-bp): 65.9 ml LVIDs: 3.7 cm LVPWd: 1.5 cm FS: 25.2 % LAV(MOD-bp) Indexed: 24.5 ml/m2 LAV(MOD-sp2): 66.6 ml LAV(MOD-sp4): 56.4 ml ___ SV(MOD-sp4): 115.8 ml SV(sp4-el): 112.3 ml LVAd ap4: 43.4 cm2 LVLd ap4: 9.1 cm SI(MOD-sp4): 43.1 ml/m2 EDV(MOD-sp4): 177.9 ml EDV(sp4-el): 175.3 ml LVAs ap4: 23.3 cm2 LVLs ap4: 7.3 cm ESV(MOD-sp4): 62.1 ml ESV(sp4-el): 63.0 ml EF(MOD-sp4): 65.1 % EF(sp4-el): 64.0 % ___ LA dimension(2D): 4.4 cm LA A4 area: 22.0 cm2 RA A4 area: 19.6 cm2 Time Measurements MV dec time: 0.15 sec Doppler Measurements Calculations MV E max martha: 99.5 cm/sec Lat Peak E' Martha: 11.9 cm/sec Med Peak E' Martha: 13.1 cm/sec MV A max martha: 107.8 cm/sec E/E' lat: 8.4 E/E' med: 7.6 MV E/A: 0.92 ___ MV V2 max: 114.4 cm/sec MV dec slope: 650.0 cm/sec2 Ao V2 max: 228.6 cm/sec MV max P.3 mmHg Ao max P.0 mmHg MV V2 mean: 76.0 cm/sec Ao V2 mean: 165.7 cm/sec MV mean P.5 mmHg Ao mean P.6 mmHg MV V2 VTI: 33.9 cm Ao V2 VTI: 47.2 cm AV (velocity ratio): 0.76 ___ LV V1 max: 142.9 cm/sec PA V2 max: 94.1 cm/sec LV V1 max P.2 mmHg PA V2 mean: 66.6 cm/sec LV V1 mean P.1 mmHg LV V1 mean: 120.0 cm/sec LV V1 VTI: 35.8 cm ECHO/Echo Complete W/ Contrast Interpretation Summary Normal LV size. Left ventricular systolic function is normal. The left ventricular ejection fraction is 65 %. Mild concentric left ventricular hypertrophy. Contrast injection was performed. Ordering Physician: Tanner Bah Referring Physician: RIKC SOW Performed By: Yara Shine RCS 08/17/24 1127 Date Sanchez Lua MD CC: Dr. Tanner Bah DO; Dr. Rick Sow MD; Dr. Mack An MD Date Dictated: 08/17/24 1019 Date Transcribed: 08/17/24 112 Marine Safety Officer: Signed Normal [facility] Emergency Department Summary on 08-15-2024 Emergency Department Summary [facility] Medical Records Department [address] [place] [address] Emergency Department Summary 08/15/24 MR#: [id number] Acct: [id number] Name: MARY AGUIAR Rep #: [id number] : 1955 68 From: Vera Orta DO PCP: Dr. Rick Sow MD Status:ADM IN Location: ICU [id number] HPI History of Present Illness Chief Complaint: Shortness of Breath Informant: patient and family Narrative Narrative: Patient is a 68-year-old male with history of hypertension diabetes mellitus presenting after an episode of syncope at home. Patient went to urgent care today and was diagnosed with influenza A. He was not started any treatment and told to get [id number] Robitussin DM for his symptoms. He was walking to the bathroom this evening when he passed out. 911 was called. Per EMS report patient was 79% on room air when they arrived. He was placed on supplemental oxygen. Patient has been having a cough that has been mildly productive. Currently denies any chest pain. Denies abdominal pain nausea or vomiting. Said decreased appetite. Symptoms started approximately 3 days ago. No other complaints or concerns reported at this time. No swelling of his legs reported. Patient take his evening medicine including glyburide and metformin. Was eating yesterday but not well today. [facility] Medical History Wears glasses High cholesterol Dietary restriction Seasonal allergies Heartburn Former smoker History of stress test Diabetes Hemorrhoids HTN (hypertension) Home Medications ???Medication ???Instructions ???Recorded ???Last Taken ???Type amlodipine 10 mg tablet 10 mg PO DAILY 04/23/13 07/11/23 H istory hydrochlorothiazide 25 mg tablet 25 mg PO DAILY 04/23/13 07/10/23 H istory losartan 50 mg tablet 100 mg PO DAILY 04/23/13 07/11/23 History omega-3 fatty acids 300 mg capsule 300 mg PO DAILY 04/23/13 3 History aspirin 81 mg tablet,delayed 81 mg PO DAILY@0800 11/09/1407/04 History release multivitamin with folic acid 400 1 tab PO DAILY 11/09/14 07/09/23 H istory mcg tablet atorvastatin 10 mg tablet (Lipitor) 20 mg PO DAILY 08/11/18 3 History metformin 500 mg tablet,extended 1,000 mg PO BID 06/29/19 07/09/23 History release 24 hr glimepiride 4 mg tablet 4 mg PO BID 07/05/23 07/08/23 Hist ory Allergy/AdvReac Type Severity Reaction Status Date / Time dapagliflozin (From [facility]) Allergy Intermediate Chest Verified 08/15/24 21:24 tightness lisinopril AdvReac Other Verified 08/15/24 21:24 Family History Father Cancer Mother Diabetes Surgical History History of carpal tunnel release of both wrists History of colonoscopy History of cholecystectomy H/O hernia repair History of vein stripping Social History Smoking Status: Former smoker alcohol intake: never ROS ROS ED Constitutional Constitutional ED: Reports chills, fever(s) and other Details: syncope, decreased apatite ENT ENT ED: Reports rhinorrhea; Denies sore throat Cardiovascular Cardiovascular: Denies chest pain or palpitations Respiratory/Chest Respiratory/Chest: Reports cough and dyspnea Gastrointestinal Gastrointestinal: Denies nausea Musculoskeletal Musculoskeletal: Reports myalgias Integumentary Denies rash Neurologic Neurologic: Reports weakness Psychiatric Psychiatric: Denies anxiety EXAM Physical Exam Const Vital Signs: 08/15/24 21:25 08/15/24 21:27 08/15/24 22:09 Temperature 100.2 F H 100.2 F H Temperature Source Oral Oral Pulse Rate 107 H 107 H Respiratory Rate 26 H 26 H Respiratory Effort Short of Breath Respiratory Depth Shallow Respiratory Pattern Tachypnea Blood Pressure 167/64 H 167/64 H Blood Pressure Mean 98 98 Pulse Ox 94 94 Oxygen Delivery Method Nasal Cannula Nasal Cannula Nasal Cannula Oxygen Flow Rate (L/min) 4 4 4 08/15/24 22:27 08/15/24 22:35 08/15/24 23:00 Temperature 100.2 F H 100.1 F H Temperature Source Oral Oral Pulse Rate 98 95 Respiratory Rate 18 20 H Respiratory Effort Respiratory Depth Respiratory Pattern Blood Pressure 165/66 H 152/73 H Blood Pressure Mean 99 99 Pulse Ox 95 88 93 Oxygen Delivery Method Nasal Cannula Room Air Nasal Cannula Oxygen Flow Rate (L/min) 2 2 08/15/24 23:12 Temperature 100.1 F H Temperature Source Pulse Rate 95 Respiratory Rate 18 Respiratory Effort Respiratory Depth Respiratory Pattern Blood Pressure 127/72 H Blood Pressure Mean 90 Pulse Ox 92 Oxygen Delivery Method O (more content not included)... Normal [facility] Epithelial cells.squamous LM Ql (Urine sed)Ordered By: Tanner Smallwood on 08-15-2024 Epithelial cells.squamous LM.HPF (Urine sed) [#/Area] 0 /[HPF] 0-5 [facility] Glucose Ql (U)Ordered By: Braulio Smallwood on 08-15-2024 Urine Glucose (UA) Normal mg/dl Normal [facility] H AND P Exam - Hospitaliston 08-15-2024 H&P Exam - Hospitalist [facility] Medical Records Department [address] [place] [address] H P Exam - Hospitalist 08/15/24 2312 MR#: [id number] Acct: [id number] Name: MARY AGUIAR Rep #: [id number] : 1955 68 From: Tanner Bah DO PCP: Dr. Rick Sow MD Status:ADM IN Location: ICU [id number] HPI - General General Date of Admission: 08/15/24 Date of Service: 08/15/24 Chief Complaint: Fever, SOB, Wheezing and Syncope. HPI Narrative MARY AGUIAR, is a 68 M with a past medical history of essential hypertension; on amlodipine, losartan and hydrochlorothiazide, hyperlipidemia; on atorvastatin, former history of tobacco abuse (quit 2012), morbid obesity; with BMI of 44.2 this admission, DM-2; of unknown control on metformin and glipizide, history of colon polyp; s/p resection (2022), history of internal/external hemorrhoids, history of cholecystectomy, history of inguinal hernia; s/p repair, history of umbilical hernia; s/p repair, history of vein stripping, seasonal allergies, OA and recently diagnosed influenza A two days ago as outpatient at Urgent Care who presents to [facility] ER complaining of fever, shortness of breath and syncope. Mr. Aguiar reports his symptoms began 3 days prior to admission with the abrupt-onset of a viral upper respiratory infection. He then went to urgent care 2 days ago and was diagnosed with influenza A but was allegedly not started on treatment other than recommended [id number] Robitussin DM to manage his symptoms. Unfortunately, his symptoms worsened with fever up to 101 ???F with tachypnea and malaise and earlier in the evening he was walking to the bathroom he had a syncopal event completely passing out during exertion. His family then activated EMS who noted patient's oxygen saturation was 79% on room air upon arrival so was immediately started on supplemental oxygen. He admits to associated cough that has been mildly productive with sharply decreased appetite over the past 3 days but he denies related chest pain, abdominal pain, nausea, vomiting, diarrhea, constipation, lower extremity edema or headache - but he does admit to persistent wheezing even after multiple breathing treatements. He states he has been taking his evening medications including his glyburide and metformin though he was admittedly not eating well for the past 48 hours. His family went on to inform the ER physician that he seems to have a worsening of his shortness of breath anytime he becomes sick with any other illness suggestive of possibly evolving underlying early emphysema/COPD though he has never been formally diagnosed. In the ER he was noted to have a fever of 100.2 ???F with a pulse of 107 bpm and a respiratory rate of 26 breaths/min with shallow respirations and tachypnea with patient requiring 4L NC with resulting increased oxygen saturation to 94% with a chest x-ray that revealed subsegmental atelectasis and/or scarring in the Left midlung with otherwise no active acute cardiopulmonary disease with ER physician asked to obtain CTA of chest to evaluate for possible underlying PE given his underwhelming CXR and severe symptoms. He was then diagnosed with influenza A complicated by suspected superimposed bacterial superinfection causing Bronchitis/Pneumonia with suspected AE COPD complicated by clinical evidence of respiratory insufficiency in the setting of known previous tobacco abuse and patient who is morbidly obese with BMI 44.2 this admission compounded by hyperglycemia of 195 mg/dL present on admission in the setting of known DM-2 and he was then admitted to the general medical floor with telemetric monitoring for a stay that is expected to extend beyond 2 midnights. [facility] Medical History Wears glasses High cholesterol Dietary restriction Seasonal allergies Heartburn Former smoker History of stress test Diabetes Hemorrhoids HTN (hypertension) Home Medications ???Medication ???Instructions ???Recorded ???Last Taken ???Type amlodipine 10 mg tablet 10 mg PO DAILY 04/23/13 07/11/23 H istory hydrochlorothiazide 25 mg tablet 25 mg PO DAILY 04/23/13 07/10/23 H istory losartan 50 mg tablet 100 mg PO DAILY 04/23/13 07/11/23 History omega-3 fatty acids 300 mg capsule 300 mg PO DAILY 04/23/13 3 History aspirin 81 mg tablet,delayed 81 mg PO DAILY@0800 11/09/1407/04 History release multivitamin with folic acid 400 1 tab PO DAILY 11/09/14 07/09/23 H istory mcg tablet atorvastatin 10 mg tablet (Lipitor) 20 mg PO DAILY 08/11/18 3 History metformin 500 mg tablet,extended 1,000 mg PO BID 06/29/19 07/09/23 History release 24 hr glimepiride 4 mg tablet 4 mg PO BID 07/05/23 07/08/23 Hist ory Allergy/AdvReac Type Severity Reaction Stat (more content not included)... Normal [facility] Hemoglobin A1c percentageOrd ered By: Tanner Smallwood on 08-15-2024 HbA1c (Bld) [Mass fraction] 6.7 % High 3.8-5.6 [facility] Comment on above: Normal < 5.7 % Predi abetic 5.7 - 6.4 % Diabetic >or= 6.5 % Please note range changes. INFLUENZA A&B MOLECULAR (POC )on 08-15-2024 Flu A (POCT) Positive Abnormal Negative [facility] Comment on above: Location:[address], [place], [address] Interpretation and review of laboratory results Abnormal [facility] Procedural Control Valid [facility] Location:[address], [place], [address] [facility] POINT OF CARE [facility] Ketones Test strip Ql (U)Ord ered By: Tanner Smallwood on 08-15-2024 Ketones Ql (U) Negative Negative [facility] [id number] 08-15-2024 TROPONIN-I HS 10 pg/mL Normal 3.0-78.0 [facility] Comment on above: Order Comment: 1Y Result Comment: Masoud martino Note: New Test Units and Gender Specific Reference Ranges. For more information see Policy Stat Procedure [place] High Sensitivity Troponin (TNIH) and attachments. Performed By: #### L 501.080 #### [facility] [address] [place], [place], [address] Lactic Acidon 08-15-2024 Lactate [Moles/Vol] 2.5 mmol/L Invalid Interpretation Code 0.4-1.9 [facility] Comment on above: Order Comment: Y Result Comment: Crit ical Result(s) Called at: 22:18:34 08/15/2024 by: APOORVA GALVEZ to Ivan Langston. Results read back by same. Performed By: #### L 501.080 #### [facility] [address] [address] [place], [place], [id number] Microscopic analysis of urin e for red blood cells (RBC)Ordered By: Tanner Smallwood on 08-15-2024 Microscopic analysis of urine for red blood cells (RBC) 0 SEEN /hpf 0-5 [facility] Urine RBC 0 SEEN /hpf 0-5 [facility] Mucus LM Ql (Urine sed)Order ed By: Tanner Smallwood on 08-15-2024 Mucus Ql (Urine sed) 0 SEEN /hpf [facility] Nitrite Test strip Ql (U)Ord ered By: Tanner Smallwood on 08-15-2024 Nitrite Ql (U) Negative Negative [facility] Protein Test strip Ql (U)Ord ered By: Tanner Smallwood on 08-15-2024 Protein Ql (U) 30 mg/dl High Negative [facility] Serum or plasma thyroid stim ulating hormone (TSH) measurement (units/volume)Ordered By: Tanner Smallwood on 08-15-2024 TSH Qn 0.461 uIU/mL 0.358-3.740 [facility] Squamous epithelial cells de tection in urine sediment by light microscopyOrdered By: Tanner Smallwood on 08-15-2024 Epithelial cells.squamous LM Ql (Urine sed) 0 SEEN /hpf 0-5 [facility] TSH QnOrdered By: Tanner riley on 08-15-2024 Thyroid Stimulating Hormone (TSH) 0.461 uIU/mL 0.358-3.740 [facility] Troponin IOrdered By: Tanner Smallwood on 08-15-2024 Troponin I 15 pg/mL 3.0-78.0 [facility] Comment on above: Please Note: New [place] t Units and Gender Specific Reference Ranges. For more information see Policy Stat Procedure [place] High Sensitivity Troponin (TNIH) and attachments. Troponin I High Sensitivity 15 pg/mL 3.0-78.0 [facility] Comment on above: Please Note: New [place] t Units and Gender Specific Reference Ranges. For more information see Policy Stat Procedure [place] High Sensitivity Troponin (TNIH) and attachments. Urine blood detectionOrdered By: Tanner Smallwood on 08-15-2024 Urine Occult Blood 10 /ul High Negative [facility] Urine clarityOrdered By: Hardik Smallwood on 08-15-2024 Clarity (U) Clear Clear [facility] Urine color determinationOrd ered By: Tanner Smallwood on 08-15-2024 Color (U) Yellow Yellow [facility] Urine glucose detectionOrder ed By: Tanner Smallwood on 08-15-2024 Glucose Ql (U) Normal mg/dl Normal [facility] Urine leukocyte esterase det ection by dipstickOrdered By: Tanner Smallwood on 08-15-2024 Leukocyte esterase Test strip Ql (U) 25 /ul High Negative [facility] Urine pHOrdered By: Tanner ribera on 08-15-2024 pH (U) 5.0 [pH] 5.0 - 8.0 [facility] Urine sediment bacteria coun t by microscopy (number/high power field)Ordered By: Tanner Smallwood on 08-15-2024 Bacteria LM.HPF (Urine sed) [#/Area] 0 /[HPF] None Seen [facility] Urine specific gravity measu rementOrdered By: Tanner Smallwood on 08-15-2024 Specific gravity (U) [Rel density] 1.015 1.002-1.030 [facility] Urine urobilinogen measureme ntOrdered By: Tanner Smallwood on 08-15-2024 Urobilinogen Ql (U) Normal mg/dl Normal [facility] Urobilinogen Ql (U)Ordered B y: Tanner Smallwood on 08-15-2024 Urine Urobilinogen Normal mg/dl Normal [facility] White blood cell countOrdere d By: Tanner Smallwood on 08-15-2024 Urine WBC 0 SEEN /hpf 0-5 [facility] White blood cell count 0 SEEN /hpf 0-5 [facility] CNPNon 07-06-2024 CNPN Telephone (FAMPWS) -- MARY AGUIAR ([id number]) 1955 M Date Time Provider Department 07/06/24 [facility] During your visit today, we recorded the following information about you: Amanda Marrero RN 07/06/2024 11:29 AM 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 States he believes this medication is causing him shortness of breath. In September this year patient began taking Actos and developed SOB about a week later and they feel it was related to the medication. Per record, on 04/07/24, pt's Actos was decreased. Patient calling this morning to state over the last 2 weeks his SOB seems to be getting worse and thinks his Actos might be causing it. Patient asking if he can stop his Actos to see if this helps his SOB? Patient recently saw MARCELINA Payne on 06/25/24 and pt states he forgot to discuss this issue with her. SpO2 at visit was 96% on room air. He states his HGBA1C has improved and his blood sugars have been 70's-120's in mornings. This nurse discussed his symptom of SOB further. Patient able to speak in full sentences. No distress. reports she was a nurse and monitors him. They do not have a home oximeter. Pt's BP at time of this call was 158/86 and patient states he has been active this morning and states he has been stressed this morning. Takes BP medications as ordered. Denies current chest pain, severe SOB, weakness, vision changes, dizziness or headache. This nurse advised pt to proceed to nearest ER should he develop those sx's and he verbalized understanding. Patient aware that MARCELINA Payne is out of office this week as well as PCP, and will be advised on his medication question as soon as possible. AYALA Saenz Jacqueline A, APRN.[employer] WORKER 07/06/2024 11:34 AM Signed Stop Actos. I have listed as an allergy. Keep a watch on Blood sugars through the week. Go to ER if dyspnea worsens or is not relived with rest. Any swelling? Amanda Marrero RN 07/06/2024 11:47 AM Signed Patient and his , given provider's message below and agreeable to recommendations. Patient has no swelling. Amanda Marrero RN Allergies As of Date: 07/06/2024 Noted Allergy Reaction ACTOS (PIOGLITAZONE) 07/06/2024 12 - Shortness of Breath FARXIGA (DAPAGLIFLOZIN) 05/16/2023 14 - Other: See Comments Comments: tachycardi and felt poorly on it. LISINOPRIL 10/30/2007 3 - Cough Date Reviewed: 06/25/2024 Reviewed by: Janny Alamo LPN - Fully Assessed Reason for Visit: Patient Question [8287] Patient Update [1304] Prescriptions as of 07/16/2024 - cyclobenzaprine (FLEXERIL) 10 mg tablet Take 1 tablet by mouth three times a day as needed for muscle spasm. - amLODIPine (NORVASC) 10 mg tablet Take 1 tablet by mouth once daily. - atorvastatin (LIPITOR) 20 mg tablet Take 1 tablet by mouth once daily. For cholesterol. - glimepiride (AMARYL) 4 mg tablet Take 1 tab twice a day. - hydroCHLOROthiazide 25 mg tablet Take 1 tablet by mouth once daily. - losartan (COZAAR) 50 mg tablet Take 2 tablets by mouth once daily. - metFORMIN (GLUCOPHAGE) 1,000 mg tablet Take 1 tablet by mouth two times a day with meals. - pioglitazone (ACTOS) 15 mg tablet Take 1 tablet by mouth once daily. - ammonium lactate (LAC-HYDRIN) 12 % cream Apply to affected area as needed. - blood sugar diagnostic (BLOOD GLUCOSE TEST) test strip Test blood sugar(s) 1-2 times daily. Dx: Type 2 DM - Uncontrolled E11.65 Insulin: No - Lancets lancets Test blood sugar(s) 1-2 times daily. Dx: Type 2 DM - Uncontrolled E11.65 Insulin: No - Aspirin 81 mg tab Take 1 tablet by mouth once daily. Take with food. - Meridian-3 Fatty Acids-Vitamin E (FISH OIL) 1,000 mg cap Take 1 capsule by mouth once daily. - MULTI-VITAMIN ORAL Take by mouth. Problem List As Of Date 07/06/2024 Noted Resolved Internal hemorrhoids without mention of complic*03/08/2005 09/21/2014 Venous (peripheral) insufficiency [I87.2] 03/08/2005 External hemorrhoids without mention of complic*03/08/2005 09/21/2014 Generalized osteoarthrosis, unspecified site [M*03/08/2005 Sprain of lumbosacral (joint) (ligament) [S33.9*03/08/2005 09/21/2014 Open wound of knee, leg (except thigh), and ank*03/08/2005 09/21/2014 Chest pain, unspecified [R07.9] 03/08/2005 09/21/2014 Esophageal reflux [K21.9] 03/08/2005 09/21/2014 Calculus of gallbladder without mention of chol*03/08/2005 09/21/2014 Cholecystitis, unspecified [K81.9] 03/08/2005 09/21/2014 Varicose veins of lower extremities with ulcer *03/08/2005 09/21/2014 Sleep apnea [G47.30] 09/01/2007 Essential hypertension, benign [I10] 09/01/2007 History of colonic polyps [Z86.0100] 10/13/2007 Morbid obesity with BMI of 40.0-44.9, adult (HC*07/06/2010 Carpal tunnel syndrome on left [G56.02] 07/06/2010 09/21/2014 Hyperlipidemia, mixed [E78.2] more content not included)... Normal [facility] CNOVon 06-25-2024 CNOV Office Visit (FAMPWS ) -- MARY AGUIAR ([id number]) 1955 M Date Time Provider Department 06/25/24 10:00 AM FARZANA KELLY During your visit today, we recorded the following information about you: Temperature Pulse Respiration Blood pressure 97.4 degrees 71/minute 18/minute 130/80 Weight 155.6 kg Farzana Kelly PA-C 06/25/2024 10:21 AM Signed Chief Complaint Patient presents with: Neck Pain: X 2 weeks HPI Mary Aguiar is a 68 year old male who presents here today for neck pain. Patient reports left sided neck pain for the past 2 weeks. Tried massage but then symptoms worsened yesterday. No n/t in arm. Pain worsening with head turning/tilting. Tried OTC creams, advil and heating pad. Past medical history, appointments, medications, allergies reviewed. [...] External hemorrhoids without mention of complication 03/08/2005 Family history of pancreatic cancer 04/02/2023 sister Foot callus 04/02/2023 Generalized osteoarthrosis, unspecified site 03/08/2005 History of colonic polyps 10/13/2007 Hyperlipidemia, mixed 07/14/2010 Internal hemorrhoids without mention of complication 03/08/2005 Morbid obesity with BMI of 40.0-44.9, adult (HCC) 07/06/2010 Palpitations 11/29/2021 Has had for many years Personal history of colonic polyps 2018 Plantar fasciitis 05/02/2018 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) 05/15/2021 Rosacea 03/11/2021 Sleep apnea 09/01/2007 Not using CPAP Stasis dermatitis 07/07/2011 Type 2 diabetes mellitus without complication, without long-term current use of insulin (HCC) 02/11/2016 Uncontrolled type 2 diabetes mellitus with hyperglycemia ([facility]) 07/28/2021 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 Venous (peripheral) insufficiency 03/08/2005 Previous Surgical History PAST SURGICAL HISTORY Procedure Laterality Date CHOLECYSTECTOMY 2002 Cholecystectomy COLONOSCOPY FLX DX W/COLLJ SPEC WHEN PFRMD 11-21-07 COLONOSCOPY FLX DX W/COLLJ SPEC WHEN PFRMD 06/13/2018 [facility]-Michael De Anda--Repeat 5 years COLSC FLX W/RMVL OF TUMOR POLYP LESION SNARE TQ 04-23-13 DEBRIDEMENT SUBCUTANEOUS TISSUE 20 SQ CM/< Left 06/27/15 Debridement UIQ left breast infected glenny cyst ENDOVENOUS LASER, 1ST VEIN 11/16/2014 [facility] - see scanned documents ENDOVENOUS LASER, 1ST VEIN 06/05/2015 [facility] - right great saphenous vein NEUROPLASTY AND/TRANSPOS MEDIAN NRV CARPAL TUNNE Carpal tunnel decomp, right STRESS TEST EXERCISE 09/21/2013 Exercise Myocardial Perfusion Stress test TONSILLECTOMY HX under age 12 Family History FAMILY HISTORY Problem Relation Age of Onset Heart Mother CHF, DM Diabetes Mother Cancer Father lung Hypertension Sister Pancreatic Cancer Sister Hypertension Brother COPD Brother Patient Allergies ALLERGIES Allergen Reactions Farxiga [Dapagliflo* Other: See Comments tachycardi and felt poorly on it. Lisinopril Cough Current Medications Current Outpatient Medications on File Prior to Visit Medication Sig amLODIPine (NORVASC) 10 mg tablet Take 1 tablet by mouth once daily. atorvastatin (LIPITOR) 20 mg tablet Take 1 tablet by mouth once daily. For cholesterol. glimepiride (AMARYL) 4 mg tablet Take 1 tab twice a day. hydroCHLOROthiazide 25 mg tablet Take 1 tablet by mouth once daily. losartan (COZAAR) 50 mg tablet Take 2 tablets by mouth once daily. metFORMIN (GLUCOPHAGE) 1,000 mg tablet Take 1 tablet by mouth two times a day with meals. pioglitazone (ACTOS) 15 mg tablet Take 1 tablet by mouth once daily. ammonium lactate (LAC-HYDRIN) 12 % cream Apply to affected area as needed. blood sugar diagnostic (BLOOD GLUCOSE TEST) test strip Test blood sugar(s) 1-2 times daily. Dx: Type 2 DM - Uncontrolled E11.65 Insulin: No Lancets lancets Test blood sugar(s) 1-2 times daily. Dx: Type 2 DM - Uncontrolled E11.65 Insulin: No Aspirin 81 mg tab Take 1 tablet by mouth once daily. Take with food. Meridian-3 Fatty Acids-Vitamin E (FISH OIL) 1,000 mg cap Take 1 capsule by mouth once daily. MULTI-VITAMIN ORAL Take by mouth. No current facility-administered medications on file prior to visit. Social History Social History Tobacco Use Smoking status: Former Current packs/day: 0.00 Average packs/day: 0.5 packs/day for 30.0 years (15.0 ttl pk-yrs) Types: Cigarettes St (more content not included)... [facility] Nurse Visit (FAMPWS) -- MARY AGUIAR ([id number]) 1955 M Date Time Provider Department 05/11/24 11:15 AM [facility] During your visit today, we recorded the following information about you: Lalita Perez LPN 05/11/2024 11:26 AM Signed Patient presents for COVID vaccine. Denies any problems at this time. Tolerated injection well. Lalita Perez LPN Referring Provider: SELF [200] Allergies As of Date: 05/11/2024 Noted Allergy Reaction FARXIGA (DAPAGLIFLOZIN) 05/16/2023 14 - Other: See Comments Comments: tachycardi and felt poorly on it. LISINOPRIL 10/30/2007 3 - Cough Date Reviewed: 04/07/2024 Reviewed by: Rick Sow MD - Fully Assessed Reason for Visit: Imm/Inj [58] Primary Visit Diagnosis:Encounter for immunization [Z23] Order(s):[email or web address] COVID-19 VACCINE AGE 12+ YR (JAY JAY) [[id number]] Order #: [id number] Prescriptions as of 05/11/2024 - amLODIPine (NORVASC) 10 mg tablet Take 1 tablet by mouth once daily. - atorvastatin (LIPITOR) 20 mg tablet Take 1 tablet by mouth once daily. For cholesterol. - glimepiride (AMARYL) 4 mg tablet Take 1 tab twice a day. - hydroCHLOROthiazide 25 mg tablet Take 1 tablet by mouth once daily. - losartan (COZAAR) 50 mg tablet Take 2 tablets by mouth once daily. - metFORMIN (GLUCOPHAGE) 1,000 mg tablet Take 1 tablet by mouth two times a day with meals. - pioglitazone (ACTOS) 15 mg tablet Take 1 tablet by mouth once daily. - ammonium lactate (LAC-HYDRIN) 12 % cream Apply to affected area as needed. - blood sugar diagnostic (BLOOD GLUCOSE TEST) test strip Test blood sugar(s) 1-2 times daily. Dx: Type 2 DM - Uncontrolled E11.65 Insulin: No - Lancets lancets Test blood sugar(s) 1-2 times daily. Dx: Type 2 DM - Uncontrolled E11.65 Insulin: No - Aspirin 81 mg tab Take 1 tablet by mouth once daily. Take with food. - Meridian-3 Fatty Acids-Vitamin E (FISH OIL) 1,000 mg cap Take 1 capsule by mouth once daily. - MULTI-VITAMIN ORAL Take by mouth. Problem List As Of Date 05/11/2024 Noted Resolved Internal hemorrhoids without mention of complic*03/08/2005 09/21/2014 Venous (peripheral) insufficiency [I87.2] 03/08/2005 External hemorrhoids without mention of complic*03/08/2005 09/21/2014 Generalized osteoarthrosis, unspecified site [M*03/08/2005 Sprain of lumbosacral (joint) (ligament) [S33.9*03/08/2005 09/21/2014 Open wound of knee, leg (except thigh), and ank*03/08/2005 09/21/2014 Chest pain, unspecified [R07.9] 03/08/2005 09/21/2014 Esophageal reflux [K21.9] 03/08/2005 09/21/2014 Calculus of gallbladder without mention of chol*03/08/2005 09/21/2014 Cholecystitis, unspecified [K81.9] 03/08/2005 09/21/2014 Varicose veins of lower extremities with ulcer *03/08/2005 09/21/2014 Sleep apnea [G47.30] 09/01/2007 Essential hypertension, benign [I10] 09/01/2007 History of colonic polyps [Z86.0100] 10/13/2007 Morbid obesity with BMI of 40.0-44.9, adult (HC*07/06/2010 Carpal tunnel syndrome on left [G56.02] 07/06/2010 09/21/2014 Hyperlipidemia, mixed [E78.2] 07/14/2010 Stasis dermatitis [I87.2] 07/07/2011 Varicosities of leg [I83.90] 03/03/2012 Type 2 diabetes mellitus without complication, *02/11/2016 Carpal tunnel syndrome, left [G56.02] 04/12/2017 Cervicalgia [M54.2] 06/26/2017 Dorsalgia [M54.9] 04/14/2018 Plantar fasciitis [M72.2] 05/02/2018 Ex-smoker [Z87.891] 03/11/2021 Rosacea [L71.9] 03/11/2021 Proteinuria due to type 2 diabetes mellitus (HC*05/15/2021 Uncontrolled type 2 diabetes mellitus with hype*07/28/2021 Palpitations [R00.2] 11/29/2021 Prostate disorder [N42.9] 11/29/2021 Medicare annual wellness visit, subsequent [Z00*03/28/2022 Advance directive discussed with patient [Z71.8*03/28/2022 Benign prostatic hyperplasia with urinary frequ*03/28/2022 ED (erectile dysfunction) of organic origin [N5*03/28/2022 Diabetic eye exam (HCC) [Z01.00, E11.9] 03/29/2022 Family history of pancreatic cancer [Z80.0] 04/02/2023 Screening for colon cancer [Z12.11] 04/02/2023 Eversion deformity of left foot [M21.072] 04/02/2023 Left leg pain [M79.605] 04/02/2023 Foot callus [L84] 04/02/2023 Skin cancer screening [Z12.83] 04/07/2024 Encounter Status:Closed by LALITA PEREZ on 05/11/24 [facility] CNOVon 04-07-2024 CNOV Office Visit (FAMPWS ) -- MARY AGUIAR ([id number]) 1955 M Date Time Provider Department 04/07/24 10:40 AM [facility] During your visit today, we recorded the following information about you: Pulse Respiration Blood pressure Weight 53/minute 16/minute 124/60 154.2 kg Height 1.829 m Rick Sow MD 04/07/2024 2:48 PM Signed Mary Aguiar is a 68 year old male here for a Medicare wellness visit. Medicare Health Risk Assessment General Health Good Exercise: Minutes/Day 40 min Exercise: Days/Week 5 days Alcohol: Daily Use Never Alcohol: Drinks/Day Patient does not drink Alcohol: 6 or more drinks Never Feel off balance No Concerns: Teeth/Dentures No Concerns: Sexual function No Troubled by feelings None of the above Frequency: Eating healthy diet Nearly every day ADLs requiring help None of the above Safety precautions in home/vehicle No Smoke, vape, chews tobacco No Difficulty hearing No Difficulty seeing No Current Providers Specialists: I have reviewed specialist-related care of the patient in the medical record. Current care team: Patient Care Team: Rick Sow MD as PCP - General (Family Medicine) Optho Medical/Family history review Reviewed and updated problem list, medical/surgical/family/so cial history, medications, and allergies. Opioid use review Opioid Medications (last 90 days) No data to display Anxiety/Depression screening PHQ-2 Score: 0 (Lower risk for depression) Recommendation: no further intervention at this time Cognitive screening Score: 5 Cognitive screening reviewed and No further action needed (score 3-5). Functional Observation Was the patient's Timed Up AND Go test unsteady or >= 12 seconds? No Advance Care Planning Patient did not wish or was not able to name a surrogate decision maker or provide an advance care plan Measurements BP 124/60 (BP Site: Left Arm, BP Position: Sitting, BP Cuff Size: Large Adult) Pulse (!) 53 Resp 16 Ht 182.9 cm (6') Wt (!) 154.2 kg (340 lb) BMI 46.11 kg/m? Vision Screening: Follows with optometry/ophthalmology Assessment/Plan Medicare annual wellness visit, subsequent (Z00.00) - Counseled on healthy diet and regular exercise - Fall avoidance information provided - Personalized prevention plan provided See below Chief Complaint Patient presents with: Medicare Wellness Exam HPI Mary Aguiar is a 68 year old male who presents here today for Chronic Medical Conditions. and Medicare Annual Visit. Patient with hx of HTN, DM2, hyperlipidemia, former smoker, obesity, CATHERINE, rosacea, OA, nenita insufficiency, and those as below. Ref Range AND Units 6 d ago (04/01/24) 6 mo ago (09/28/23) 1 yr ago (03/22/23) 1 yr ago (09/19/22) 2 yr ago (03/21/22) 2 yr ago (11/29/21) 2 yr ago (07/28/21) Hemoglobin A1C 4.3 - 5.6 % 6.6 High 7.4 High CM 7.3 High CM 6.9 High CM 7.6 High CM 7.5 High CM 8.0 High Patient sees Ophthalmology. Dr. Avendano, last visit 01/2024 Patient has been doing ok. Has been having some low BS's since he started the Actos. He has also gained some weight. At [facility] on 01/23/2024: A1c was 6.2% Past medical history, appointments, medications, allergies reviewed. [...] External hemorrhoids without mention of complication 03/08/2005 Family history of pancreatic cancer 04/02/2023 sister Foot callus 04/02/2023 Generalized osteoarthrosis, unspecified site 03/08/2005 History of colonic polyps 10/13/2007 Hyperlipidemia, mixed 07/14/2010 Internal hemorrhoids without mention of complication 03/08/2005 Morbid obesity with BMI of 40.0-44.9, adult ([facility]) 07/06/2010 Palpitations 11/29/2021 Has had for many years Personal history of colonic polyps 2018 Plantar fasciitis 05/02/2018 Proteinuria due to type 2 diabetes mellitus ([facility]) ([facility]) 05/15/2021 Rosacea 03/11/2021 Sleep apnea 09/01/2007 Not using CPAP Stasis dermatitis 07/07/2011 Type 2 diabetes mellitus without complication, without long-term current use of insulin ([facility]) 02/11/2016 Uncontrolled type 2 diabetes mellitus with hyperglycemia ([facility]) 07/28/2021 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 Venous (peripheral) insufficiency 03/08/2005 Previous Surgical History PAST SURGICAL HISTORY Procedure Laterality Date CHOLECYSTECTOMY (more content not included)... Normal [facility] Glucose Glucometer (BldC) [M ass/Vol]Ordered By: Kishore De Anda on 07-11-2023 Glucose [Mass/Vol] 174 mg/dL 74-106 [facility] Comment on above: MANAGEMENT OF PATIEN T CARE PER NURSING PROTOCOL CT PANCREAS W IVCONon 2022 [facility] XR FOOT GENERAL 3V AP/LAT/OB L LEFTon 03-28-2022 [facility] XR Foot - left AP and Latera l and obliqueon 03-28-2022 IMPRESSION: Mild degenerative change with no acute process seen. Marine Safety Officer: BELÉN Transcribe Date/Time: Mar 28 2022 12:55P Dictated by : JALEEL BEE MD This examination was interpreted and the report reviewed and electronically signed by: JALEEL BEE MD on Mar 28 2022 12:56PM EST DIVISION OF RADIOLOGY * * *Final Report* * * DATE OF EXAM: Mar 28 2022 9:53AM WOX 5336 - XR FOOT 3V AP/LAT/OBL LT / PROCEDURE REASON: Foot pain, left * * * * Physician Interpretation * * * * History: Trauma FINDINGS: AP, lateral, and oblique views of the left foot have been obtained. There is no acute fracture or dislocation. There is mild narrowing/spurring of the first MTP joint. Posterior and plantar calcaneal spurs noted. Mild dorsal spurring of the tarsals. No gross soft tissue abnormality is seen. DIVISION OF RADIOLOGY Provider, [facility] - 03/28/2022 * * *Final Report* * * DATE OF EXAM: Mar 28 2022 9:53AM WOX 5336 - XR FOOT 3V AP/LAT/OBL LT / PROCEDURE REASON: Foot pain, left * * * * Physician Interpretation * * * * History: Trauma FINDINGS: AP, lateral, and oblique views of the left foot have been obtained. There is no acute fracture or dislocation. There is mild narrowing/spurring of the first MTP joint. Posterior and plantar calcaneal spurs noted. Mild dorsal spurring of the tarsals. No gross soft tissue abnormality is seen. IMPRESSION IMPRESSION: Mild degenerative change with no acute process seen. Marine Safety Officer: BELÉN Transcribe Date/Time: Mar 28 2022 12:55P Dictated by : JALEEL BEE MD This examination was interpreted and the report reviewed and electronically signed by: JALEEL BEE MD on Mar 28 2022 12:56PM EST [facility] Radiology Study observation (narrative) [facility] XR Foot - left AP and Latera l and obliqueOrdered By: Ccf Provider on 03-28-2022 [facility] CBC W Auto Differential pane l (Bld)on 11-29-2021 Abs Immature Gran <0.03 <0.10 k/uL [facility] Basophils (Bld) [#/Vol] 0.05 10*3/uL <0.11 k/uL [facility] Basophils/100 WBC (Bld) 0.7 % [facility] Differential cell count method Nom (Bld) Auto [facility] Eosinophils (Bld) [#/Vol] 0.36 10*3/uL <0.46 k/uL [facility] Eosinophils/100 WBC (Bld) 4.9 % [facility] Erythrocyte distribution width (RBC) [Ratio] 13.2 % 11.5 - 15.0 % [facility] Hematocrit (Bld) [Volume fraction] 43.6 % 39.0 - 51.0 % [facility] Hemoglobin (Bld) [Mass/Vol] 13.9 g/dL 13.0 - 17.0 g/dL [facility] Immature Gran % 0.3 % [facility] Lymphocytes (Bld) [#/Vol] 2.86 10*3/uL 1.00 - 4.00 k/uL [facility] Lymphocytes/100 WBC (Bld) 38.8 % [facility] MCH (RBC) [Entitic mass] 27.5 pg 26.0 - 34.0 pg [facility] MCHC (RBC) [Mass/Vol] 31.9 g/dL 30.5 - 36.0 g/dL [facility] MCV (RBC) [Entitic vol] 86.3 fL 80.0 - 100.0 fL [facility] Monocytes (Bld) [#/Vol] 0.55 10*3/uL <0.87 k/uL [facility] Monocytes/100 WBC (Bld) 7.5 % [facility] Neutrophils (Bld) [#/Vol] 3.54 10*3/uL 1.45 - 7.50 k/uL [facility] Neutrophils/100 WBC (Bld) 47.8 % [facility] Nucleated RBC (Bld) [#/Vol] 10*3/uL <0.01 k/uL [facility] Nucleated RBC/100 WBC (Bld) [Ratio] 0.0 /100 WBC [facility] Platelet mean volume (Bld) [Entitic vol] 10.5 fL 9.0 - 12.7 fL [facility] Platelets (Bld) [#/Vol] 253 10*3/uL 150 - 400 k/uL [facility] RBC (Bld) [#/Vol] 5.05 10*6/uL 4.20 - 6.0 0 m/uL [facility] WBC (Bld) [#/Vol] 7.38 10*3/uL 3.70 - 11.00 k/uL [facility] Vital Signs Date Time Vital Sign Value Performing Clinician Facility 03-26-2025 08:45-0400 Body mass index (BMI) [Ratio] 42.6 kg/m2 Dr. Rick Sow MD Work Phone: 9(474)193-660542 [place] [address] 03-26-2025 08:45-0400 Body temperature 97.4 [degF] Dr. Rick Sow MD Work Phone: 0(945)166-100442 [place] [address] 03-26-2025 08:45-0400 Body weight 146.[address] Rick Sow MD Work Phone: 4(106)174-601342 [place] [address] 03-26-2025 08:45-0400 Diastolic blood pressure 73 mm[Hg] Dr. Rick Sow MD Work Phone: 7(320)713-175842 [place] [address] 03-26-2025 08:45-0400 Heart rate 57 /min Dr. Rick Sow MD Work Phone: 7(230)455-253242 [place] [address] 03-26-2025 08:45-0400 Respiratory rate 18 /min Dr. Rick Sow MD Work Phone: 0(771)847-368842 [place] [address] 03-26-2025 08:45-0400 SaO2% (BldA) [Mass fraction] 97 % Dr. Rick Sow MD Work Phone: 8(152)399-604442 [place] [address] 03-26-2025 08:45-0400 Systolic blood pressure 135 mm[Hg] Dr. Rick Sow MD Work Phone: 5(754)722-082842 [place] [address] 02-17-2025 08:05-0400 Body mass index (BMI) [Ratio] 43.2 kg/m2 Dr. Rick Sow MD Work Phone: 6(298)887-811142 [place] [address] 02-17-2025 08:05-0400 Body temperature 97 [degF] Dr. Rick Sow MD Work Phone: 6(992)278-490642 [place] [address] 02-17-2025 08:05-0400 Body weight 148.[address] Rick Sow MD Work Phone: 1(311)176-618842 [place] [address] 02-17-2025 08:05-0400 Diastolic blood pressure 74 mm[Hg] Dr. Rick Sow MD Work Phone: 1(145)125-889142 [place] [address] 02-17-2025 08:05-0400 Heart rate 60 /min Dr. Rick Sow MD Work Phone: 4(929)876-813942 [place] [address] 02-17-2025 08:05-0400 Respiratory rate 18 /min Dr. Rick Sow MD Work Phone: 8(392)124-650542 [place] [address] 02-17-2025 08:05-0400 SaO2% (BldA) [Mass fraction] 93 % Dr. Rick Sow MD Work Phone: 5(334)491-782942 [place] [address] 02-17-2025 08:05-0400 Systolic blood pressure 146 mm[Hg] Dr. Rick Sow MD Work Phone: 1(985)728-333242 [place] [address] 01-14-2025 10:06-0400 Body height 185.[address] Rick Sow MD Work Phone: 9(518)150-773142 [place] [address] 01-14-2025 10:06-0400 Body mass index (BMI) [Ratio] 42.7 kg/m2 Dr. Rick Sow MD Work Phone: 9(225)105-814342 [place] [address] 01-14-2025 10:06-0400 Body weight 146.[address] Rick Sow MD Work Phone: 4(209)465-500342 [place] [address] 01-14-2025 10:06-0400 Diastolic blood pressure 68 mm[Hg] Dr. Rick Sow MD Work Phone: 3(589)389-983742 [place] [address] 01-14-2025 10:06-0400 Heart rate 63 /min Dr. Rick Sow MD Work Phone: 3(544)240-123042 [place] [address] 01-14-2025 10:06-0400 Respiratory rate 18 /min Dr. Rick Sow MD Work Phone: 5(262)406-864142 [place] [address] 01-14-2025 10:06-0400 Systolic blood pressure 133 mm[Hg] Dr. Rick Sow MD Work Phone: 4(733)502-134042 [place] [address] 11-16-2024 07:34-0400 Body height 185.[address] Rick Sow MD Work Phone: 7(973)128-271742 [place] [address] 11-13-2024 08:04-0400 Body mass index (BMI) [Ratio] 43.1 kg/m2 Dr. Rick Sow MD Work Phone: 8(901)690-540842 [place] [address] 11-13-2024 08:04-0400 Body temperature 97.5 [degF] Dr. Rick Sow MD Work Phone: 0(547)500-974942 [place] [address] 11-13-2024 08:04-0400 Body weight 148.[address] Rick Sow MD Work Phone: 9(662)670-460942 [place] [address] 11-13-2024 08:04-0400 Diastolic blood pressure 82 mm[Hg] Dr. Rick Sow MD Work Phone: 3(699)188-965742 [place] [address] 11-13-2024 08:04-0400 Heart rate 62 /min Dr. Rick Sow MD Work Phone: 5(936)845-385442 [place] [address] 11-13-2024 08:04-0400 Inhaled oxygen flow rate 2 L/min Dr. Rick Sow MD Work Phone: 8(338)390-232042 [place] [address] 11-13-2024 08:04-0400 Respiratory rate 20 /min Dr. Rick Sow MD Work Phone: 7(241)542-811442 [place] [address] 11-13-2024 08:04-0400 SaO2% (BldA) [Mass fraction] 94 % Dr. Rick Sow MD Work Phone: 8(869)083-875242 [place] [address] 11-13-2024 08:04-0400 Systolic blood pressure 143 mm[Hg] Dr. Rcik Sow MD Work Phone: 3(314)806-851142 [place] [address] 10-28-2024 12:38-0400 Body height 215.[address] Rick Sow MD Work Phone: 8(923)362-103042 [place] [address] 10-28-2024 12:38-0400 Body weight 145.[address] Rick Sow MD Work Phone: 8(617)561-244042 [place] [address] 10-28-2024 12:38-0400 Heart rate 79 /min Dr. Rick Sow MD Work Phone: [facility] 10-28-2024 12:38-0400 Inhaled oxygen flow rate 2 L/min Dr. Rick Sow MD Work Phone: [facility] 10-28-2024 12:38-0400 SaO2% (BldA) [Mass fraction] 92 % Dr. Rick Sow MD Work Phone: [facility] 10-05-2024 11:46-0400 Body mass index (BMI) [Ratio] 44.21 kg/m2 Farzana Kelly PA-C Work Phone: [facility] 10-05-2024 11:46-0400 Body temperature 98.01 [degF] Farzana Kelly PA-C Work Phone: [facility] 10-05-2024 11:46-0400 Body weight 147.87 kg Farzana Kelly PA-C Work Phone: [facility] 10-05-2024 11:46-0400 Diastolic blood pressure 82 mm[Hg] Farzana Kelly PA-C Work Phone: [facility] 10-05-2024 11:46-0400 Heart rate 86 /min Farzana Kelly PA-C Work Phone: [facility] 10-05-2024 11:46-0400 Respiratory rate 18 /min Farzana Kelly PA-C Work Phone: [facility] 10-05-2024 11:46-0400 SaO2% (BldA) [Mass fraction] 95 % Farzana Kelly PA-C Work Phone: [facility] 10-05-2024 11:46-0400 Systolic blood pressure 118 mm[Hg] Farzana Kelly PA-C Work Phone: [facility] 09-24-2024 09:56-0400 Body mass index (BMI) [Ratio] 42.7 kg/m2 Dr. Rick Sow MD Work Phone: [facility] 09-24-2024 09:56-0400 Body weight 146.[address] Rick Sow MD Work Phone: 6(833)312-140342 [place] [address] 09-24-2024 09:56-0400 Diastolic blood pressure 69 mm[Hg] Dr. Rick Sow MD Work Phone: 3(797)567-496542 [place] [address] 09-24-2024 09:56-0400 Heart rate 62 /min Dr. Rick Sow MD Work Phone: 5(721)865-852442 [place] [address] 09-24-2024 09:56-0400 Inhaled oxygen flow rate 2 L/min Dr. Rick Sow MD Work Phone: 6(745)167-941142 [place] [address] 09-24-2024 09:56-0400 Respiratory rate 18 /min Dr. Rick Sow MD Work Phone: 4(693)137-536242 [place] [address] 09-24-2024 09:56-0400 SaO2% (BldA) [Mass fraction] 93 % Dr. Rick Sow MD Work Phone: 1(765)328-834042 [place] [address] 09-24-2024 09:56-0400 Systolic blood pressure 121 mm[Hg] Dr. Rick Sow MD Work Phone: 5(061)325-297042 [place] [address] 09-23-2024 08:06-0400 Body height 185.[address] Rick Sow MD Work Phone: 6(732)191-325542 [place] [address] 09-23-2024 08:06-0400 Body mass index (BMI) [Ratio] 42.6 kg/m2 Dr. Rick Sow MD Work Phone: 0(091)802-935942 [place] [address] 09-23-2024 08:06-0400 Body temperature 97.5 [degF] Dr. Rick Sow MD Work Phone: 1(053)440-964642 [place] [address] 09-23-2024 08:06-0400 Body weight 146.[address] Rick Sow MD Work Phone: 7(582)745-612242 [place] [address] 09-23-2024 08:06-0400 Diastolic blood pressure 84 mm[Hg] Dr. Rick Sow MD Work Phone: 0(619)876-169142 [place] [address] 09-23-2024 08:06-0400 Heart rate 73 /min Dr. Rick Sow MD Work Phone: [facility] 09-23-2024 08:06-0400 Inhaled oxygen flow rate 2 L/min Dr. Rick Sow MD Work Phone: [facility] 09-23-2024 08:06-0400 Respiratory rate 20 /min Dr. Rick Sow MD Work Phone: [facility] 09-23-2024 08:06-0400 SaO2% (BldA) [Mass fraction] 97 % Dr. Rick Sow MD Work Phone: [facility] 09-23-2024 08:06-0400 Systolic blood pressure 145 mm[Hg] Dr. Rick Sow MD Work Phone: [facility] 08-27-2024 12:19-0500 Body mass index (BMI) [Ratio] 43.81 kg/m2 Farzana Kelly PA-C Work Phone: [facility] 08-27-2024 12:19-0500 Body temperature 97.11 [degF] Farzana Kelly PA-C Work Phone: [facility] 08-27-2024 12:19-0500 Body weight 146.51 kg Farzana Robin PA-C Work Phone: [facility] 08-27-2024 12:19-0500 Diastolic blood pressure 70 mm[Hg] Farzana Kelly PA-C Work Phone: [facility] 08-27-2024 12:19-0500 Heart rate 62 /min Farzana Kelly PA-C Work Phone: [facility] 08-27-2024 12:19-0500 Respiratory rate 20 /min Farzana Kelly PA-C Work Phone: [facility] 08-27-2024 12:19-0500 SaO2% (BldA) [Mass fraction] 100 % Farzana Kelly PA-C Work Phone: [facility] 08-27-2024 12:19-0500 Systolic blood pressure 138 mm[Hg] Farzana Kelly PA-C Work Phone: 2(149)133-049713 [place] [address] 08-19-2024 15:00-0500 Inhaled oxygen flow rate 2 L/min Dr. Rick Sow MD Work Phone: 6(827)589-868422 [place] [address] 08-19-2024 14:42-0500 Diastolic blood pressure 81 mm[Hg] Dr. Rick Sow MD Work Phone: 3(663)428-083042 [place] [address] 08-19-2024 14:42-0500 Heart rate 76 /min Dr. Rick Sow MD Work Phone: 9(557)804-853742 [place] [address] 08-19-2024 14:42-0500 Respiratory rate 18 /min Dr. Rick Sow MD Work Phone: 4(277)903-617542 [place] [address] 08-19-2024 14:42-0500 SaO2% (BldA) [Mass fraction] 95 % Dr. Rick Sow MD Work Phone: 6(866)774-739622 [place] [address] 08-19-2024 14:42-0500 Systolic blood pressure 154 mm[Hg] Dr. Rick Sow MD Work Phone: 3(095)356-655322 [place] [address] 08-19-2024 10:00-0500 Body temperature 98.1 [degF] Dr. Rick Sow MD Work Phone: 5(984)160-367542 [place] [address] 08-19-2024 04:27-0500 Body mass index (BMI) [Ratio] 45 kg/m2 Dr. Rick Sow MD Work Phone: 6(060)387-960822 [place] [address] 08-19-2024 04:27-0500 Body weight 154.[address] Rick Sow MD Work Phone: 6(264)183-091842 [place] [address] 08-17-2024 23:56-0500 Inhaled oxygen concentration 50 % Dr. Rick Sow MD Work Phone: 9(217)709-456822 [place] [address] 08-15-2024 13:51-0500 Body mass index (BMI) [Ratio] 45.69 kg/m2 Jhon Nava MD Work Phone: 3(728)444-206613 [place] [address] 08-15-2024 13:51-0500 Body temperature 101.8 [degF] Jhon Nava MD Work Phone: [facility] 08-15-2024 13:51-0500 Body weight 152.8 kg Jhon Nava MD Work Phone: [facility] 08-15-2024 13:51-0500 Diastolic blood pressure 76 mm[Hg] Jhon Nava MD Work Phone: [facility] 08-15-2024 13:51-0500 Heart rate 98 /min Jhon Nava MD Work Phone: [facility] 08-15-2024 13:51-0500 Respiratory rate 22 /min Jhon Nava MD Work Phone: [facility] 08-15-2024 13:51-0500 SaO2% (BldA) [Mass fraction] 92 % Jhon Nava MD Work Phone: [facility] 08-15-2024 13:51-0500 Systolic blood pressure 194 mm[Hg] Jhon Nava MD Work Phone: [facility] 06-25-2024 10:01-0500 Body mass index (BMI) [Ratio] 46.52 kg/m2 Farzana HEWITT-C Work Phone: [facility] 06-25-2024 10:01-0500 Body temperature 97.39 [degF] Farzana HEWITT-C Work Phone: [facility] 06-25-2024 10:01-0500 Body weight 155.58 kg Farzana HEWITT-C Work Phone: [facility] 06-25-2024 10:01-0500 Diastolic blood pressure 80 mm[Hg] Farzana HEWITT-C Work Phone: [facility] 06-25-2024 10:01-0500 Heart rate 71 /min Farzana Kelly PA-C Work Phone: [facility] 06-25-2024 10:01-0500 Respiratory rate 18 /min Farzana Kelly PA-C Work Phone: [facility] 06-25-2024 10:01-0500 SaO2% (BldA) [Mass fraction] 96 % Farzana Kelly PA-C Work Phone: [facility] 06-25-2024 10:01-0500 Systolic blood pressure 130 mm[Hg] Farzana Kelly PA-C Work Phone: [facility] 04-07-2024 10:51-0400 Body height 182.9 cm Rick Sow MD Work Phone: [facility] 04-07-2024 10:51-0400 Body mass index (BMI) [Ratio] 46.11 kg/m2 iRck Sow MD Work Phone: [facility] 04-07-2024 10:51-0400 Body weight 154.22 kg Rick Sow MD Work Phone: [facility] 04-07-2024 10:51-0400 Diastolic blood pressure 60 mm[Hg] Rick Sow MD Work Phone: [facility] 04-07-2024 10:51-0400 Heart rate 53 /min Rick Sow MD Work Phone: [facility] 04-07-2024 10:51-0400 Respiratory rate 16 /min Rick Sow MD Work Phone: [facility] 04-07-2024 10:51-0400 Systolic blood pressure 124 mm[Hg] Rick Sow MD Work Phone: [facility] 10-01-2023 10:22-0400 Body temperature 97.39 [degF] Farzana Kelly PA-C Work Phone: [facility] 10-01-2023 10:22-0400 Body weight 150.14 kg Farzana Kelly PA-C Work Phone: [facility] 10-01-2023 10:22-0400 Diastolic blood pressure 70 mm[Hg] Farzana Kelly PA-C Work Phone: [facility] 10-01-2023 10:22-0400 Heart rate 62 /min Farzana HEWITT-C Work Phone: [facility] 10-01-2023 10:22-0400 Respiratory rate 18 /min Farzana Kelly PA-C Work Phone: [facility] 10-01-2023 10:22-0400 Systolic blood pressure 118 mm[Hg] Farzana HEWITT-C Work Phone: [facility] 07-11-2023 09:06-0500 Body temperature 97.8 [degF] Dr. Kishore De Anda Work Phone: [facility] 07-11-2023 09:06-0500 Diastolic blood pressure 74 mm[Hg] Dr. Kishore De Anda Work Phone: [facility] 07-11-2023 09:06-0500 Heart rate 61 /min Dr. Kishore De Anda Work Phone: [facility] 07-11-2023 09:06-0500 Respiratory rate 18 /min Dr. Kishore De Anda Work Phone: [facility] 07-11-2023 09:06-0500 SaO2% (BldA) [Mass fraction] 95 % Dr. Kishore De Anda Work Phone: [facility] 07-11-2023 09:06-0500 Systolic blood pressure 114 mm[Hg] Dr. Kishore De Anda Work Phone: [facility] 07-11-2023 08:55-0500 Inhaled oxygen flow rate 2 L/min Dr. Kishore De Anda Work Phone: [facility] 07-11-2023 07:55-0500 Body height 185.[address] Kishore De Anda Work Phone: [facility] 07-11-2023 07:55-0500 Body mass index (BMI) [Ratio] 42.7 kg/m2 Dr. Kishore De Anda Work Phone: [facility] 07-11-2023 07:55-0500 Body weight [address] Kishore De Anda Work Phone: [facility] 04-02-2023 09:16-0400 Body height 185 cm Rick Sow MD Work Phone: [facility] 04-02-2023 09:16-0400 Body weight 148.33 kg Rick Sow MD Work Phone: [facility] 04-02-2023 09:16-0400 Diastolic blood pressure 80 mm[Hg] Rick Sow MD Work Phone: [facility] 04-02-2023 09:16-0400 Heart rate 67 /min Rick Sow MD Work Phone: [facility] 04-02-2023 09:16-0400 Respiratory rate 16 /min Rick Sow MD Work Phone: [facility] 04-02-2023 09:16-0400 SaO2% (BldA) [Mass fraction] 95 % Rick Sow MD Work Phone: [facility] 04-02-2023 09:16-0400 Systolic blood pressure 128 mm[Hg] Rick Sow MD Work Phone: [facility] 09-25-2022 07:58-0400 Body weight 146.97 kg Farzana Kelly PA-C Work Phone: [facility] 09-25-2022 07:58-0400 Diastolic blood pressure 78 mm[Hg] Farzana Kelly PA-C Work Phone: [facility] 09-25-2022 07:58-0400 Heart rate 52 /min Farzana Kelly PA-C Work Phone: [facility] 09-25-2022 07:58-0400 Respiratory rate 18 /min Farzana Kelly PA-C Work Phone: [facility] 09-25-2022 07:58-0400 SaO2% (BldA) [Mass fraction] 98 % Farzana Kelly PA-C Work Phone: [facility] 09-25-2022 07:58-0400 Systolic blood pressure 136 mm[Hg] Farzana Kelly PA-C Work Phone: [facility] 03-28-2022 08:10-0400 Body height 182.9 cm Rick Sow MD Work Phone: [facility] 03-28-2022 08:10-0400 Body weight 149.69 kg Rick Sow MD Work Phone: [facility] 03-28-2022 08:10-0400 Diastolic blood pressure 78 mm[Hg] Rick Sow MD Work Phone: [facility] 03-28-2022 08:10-0400 Heart rate 68 /min Rick Sow MD Work Phone: [facility] 03-28-2022 08:10-0400 Respiratory rate 16 /min Rick Sow MD Work Phone: [facility] 03-28-2022 08:10-0400 Systolic blood pressure 138 mm[Hg] Rick Sow MD Work Phone: [facility] 02-26-2022 10:52-0400 Body temperature 98.71 [degF] Miladys Juan Carlos ASSEMBLY RIVETER.WELFARE ELIGIBILITY WORKER Work Phone: [facility] 02-26-2022 10:52-0400 Body weight 150.23 kg Miladystyler Rangel ASSEMBLY RIVETER.WELFARE ELIGIBILITY WORKER Work Phone: [facility] 02-26-2022 10:52-0400 Diastolic blood pressure 82 mm[Hg] Miladys Juan Carlos ASSEMBLY RIVETER.WELFARE ELIGIBILITY WORKER Work Phone: [facility] 02-26-2022 10:52-0400 Heart rate 76 /min Miladys Juan Carlos ASSEMBLY RIVETER.WELFARE ELIGIBILITY WORKER Work Phone: [facility] 02-26-2022 10:52-0400 Respiratory rate 20 /min Miladys Juan Carlos ASSEMBLY RIVETER.WELFARE ELIGIBILITY WORKER Work Phone: [facility] 02-26-2022 10:52-0400 SaO2% (BldA) [Mass fraction] 96 % Miladys Juan Carlos ASSEMBLY RIVETER.WELFARE ELIGIBILITY WORKER Work Phone: [facility] 02-26-2022 10:52-0400 Systolic blood pressure 142 mm[Hg] Miladys Rangel APRN.WELFARE ELIGIBILITY WORKER Work Phone: [facility] 12-18-2021 11:04-0400 Body height 185.[address] [facility] 12-18-2021 [id number] Body weight 144.[address] [facility] 11-29-2021 13:090400 Body weight 151.5 kg Rick Sow MD Work Phone: [facility] 11-29-2021 13:09-0400 Diastolic blood pressure 80 mm[Hg] Rick Sow MD Work Phone: [facility] 11-29-2021 13:09-0400 Heart rate 78 /min Rick Sow MD Work Phone: [facility] 11-29-2021 13:09-0400 Respiratory rate 14 /min Rick Sow MD Work Phone: [facility] 11-29-2021 13:09-0400 Systolic blood pressure 138 mm[Hg] Rick Sow MD Work Phone: [facility] Encounters Encounter Date Encounter Type Care Provider Facility Start: 04-05-2025 ambulatory Юлия Bermudez NP Fac ility:[facility] Start: 04-02-2025 End: 04-02-2025 ambulatory FARZANA KELLY Facility:[facility] Start: 03-26-2025 End: 03-26-2025 Chart abstracting Rick Sow MD Work Phone: [facility] Comment on above: Outside Pulmonary Start: 03-26-2025 End: 03-26-2025 Patient encounter procedure Юлия Bermudez NP-C -[facility] Work Phone: Start: 03-26-2025 End: 03-26-[address] Rick Sow MD Work Phone: -[facility] Start: 03-17-2025 End: 03-17-2025 Chart abstracting Rick Sow MD Work Phone: [facility] Comment on above: Abstract (DM Eye vis it) Start: 03-03-2025 End: 03-03-[address] Rick Sow MD Work Phone: -Cat Scan [facility] Start: 03-03-2025 End: 03-03-2025 Patient encounter procedure Юлия Bermudez SEWING MACHINE TESTER-C -Cat Scan [facility] Work Phone: Start: 03-03-2025 End: 03-03-2025 ambulatory Юлия Bermudez SEWING MACHINE TESTER Facility:[facility] Start: 02-17-2025 End: 02-17-2025 Patient encounter procedure Юлия Bermudez SEWING MACHINE TESTER-C -[facility] Work Phone: Start: 02-17-2025 End: 02-17-[address] Rick Sow MD Work Phone: -[facility] Start: 01-29-2025 Non-patient / Non-visit Dr. Melinda mann MD -[facility] Work Phone: Start: 01-29-2025 End: 01-29-[address] Rick Sow MD Work Phone: -Pulmonary Services/Neurology Start: 01-29-2025 End: 01-29-2025 Patient encounter procedure Raquel Penny NP-C -Pulmonary Services/Neurology Work Phone: Start: 01-29-2025 End: 01-29-2025 ambulatory Rick Sow Facility:[facility] Start: 01-25-2025 End: 01-25-2025 Chart abstracting Rick Sow MD Work Phone: [facility] Comment on above: Outside [facility]-FOU Ordered Start: 01-25-2025 End: 01-25-[address] Rick Sow MD Work Phone: -Laboratory Start: 01-25-2025 End: 01-25-2025 Patient encounter procedure Raquel Penny NP-C -Laboratory Work Phone: Start: 01-25-2025 End: 01-25-2025 ambulatory Rick Sow Facility:[facility] Start: 01-14-2025 End: 01-14-2025 Chart abstracting Rick Sow MD Work Phone: [facility] Comment on above: Outside Cardiology Start: 01-14-2025 End: 01-14-2025 Patient encounter procedure Raquel Penny SEWING MACHINE TESTER-C -[place] [facility] Work Phone: Start: 01-14-2025 End: 01-14-[address] Rick Sow MD Work Phone: -[facility] Start: 12-15-2024 End: 12-15-[address] Rick Sow MD Work Phone: [facility] Work Phone: Start: 12-15-2024 End: 12-15-2024 Patient encounter procedure Юлия Bermudez SEWING MACHINE TESTER-C -Sleep Lab Work Phone: Start: 12-15-2024 End: 12-15-2024 ambulatory Юлия Bermudez NP Facility:[facility] Start: 11-13-2024 End: 11-13-2024 Patient encounter procedure Юлия Bermudez SEWING MACHINE TESTER-C -[facility] Work Phone: Start: 11-13-2024 End: 11-13-2024 ambulatory Юлия Bermudez NP Facility:[facility] Start: 11-05-2024 End: 11-05-2024 ambulatory RICK SOW Facility:[facility] Start: 11-04-2024 End: 11-04-2024 ambulatory Farzana Kelly PA-C Work Phone: [facility] Comment on above: Itching Start: 11-04-2024 End: 11-04-2024 Chart abstracting Rick Sow MD Work Phone: [facility] Comment on above: Outside Imaging (CT) Start: 11-02-2024 End: 11-02-[address] Rick Sow MD Work Phone: [facility] Work Phone: Start: 11-02-2024 End: 11-02-2024 Patient encounter procedure Юлия Bermudez SEWING MACHINE TESTER-C -Cat Scan, [facility] Work Phone: Start: 11-02-2024 End: 11-02-2024 ambulatory Юлия Bermudez SEWING MACHINE TESTER Facility:[facility] Start: 10-30-2024 End: 10-30-2024 Patient encounter procedure Юлия Bermudez SEWING MACHINE TESTER-C -Pulmonary Services/Neurology Work Phone: Start: 10-29-2024 End: 10-30-2024 ambulatory Юлия Bermudez SEWING MACHINE TESTER Facility:[facility] Start: 10-29-2024 Non-patient / Non-visit Dr. Edd bond DO -[facility] Start: 10-28-2024 End: 10-28-[address] Rick Sow MD Work Phone: [facility] Work Phone: Start: 10-28-2024 End: 10-28-2024 Patient encounter procedure Юлия Bermudez SEWING MACHINE TESTER-C -Pulmonary Services/Neurology Work Phone: Start: 10-28-2024 End: 10-28-2024 ambulatory Юлия Bermudez SEWING MACHINE TESTER Facility:[facility] Start: 10-21-2024 End: 10-21-2024 Chart abstracting Red Guerin MA [facility] [place] Comment on above: Stress Test (Outside facility ) Start: 10-19-2024 ambulatory Rick Sow Facility :[facility] Start: 10-19-2024 Non-patient / Non-visit Dr. Melinda mann MD -[facility] Start: 10-16-2024 End: 10-16-[address] Rick Sow MD Work Phone: [facility] Work Phone: Start: 10-16-2024 End: 10-16-[address] Melinda Cifuentes MD -Cardiovascular Services Work Phone: Start: 10-16-2024 End: 10-16-2024 ambulatory Rick Sow Facility:[facility] Start: 10-13-2024 End: 10-13-2024 ambulatory Rick Sow MD Work Phone: [facility] [place] Comment on above: Nuclear stress test this Saturday10/16/24 Start: 10-09-2024 End: 10-09-2024 Refill Farzana Kelly PA-C Work Phone: [facility] Comment on above: Refill Request Start: 10-05-2024 End: 10-05-2024 ambulatory RICK SOW Facility:[facility] Start: 10-05-2024 End: 10-05-2024 Office outpatient visit 25 minutes Farzana Kelly PA-C Work Phone: Family 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 Melinda Cifuentes MD -[facility] Work Phone: Start: 09-24-2024 End: 09-24-2024 ambulatory Rick Sow Facility:[facility] Start: 09-23-2024 End: 09-23-2024 Patient encounter procedure Юлия Bermudez NP-C -[facility] Work Phone: Start: 09-23-2024 End: 09-23-2024 ambulatory Юлия Bermudez NP Facility:[facility] Start: 09-16-2024 End: 09-16-2024 ambulatory Farzana Kelly PA-C Work Phone: [facility] Comment on above: Potassium Chloride Start: 09-07-2024 End: 09-07-2024 ambulatory Tarik Klein RN Work Phone: [employer] Start: 09-07-2024 End: 09-07-2024 Telephone follow-up Tarik Klein RN Work Phone: [employer] Comment on above: Transition Of Care ( Follow up day 19) Weekly phone contact (Recurring) for Transitional Care Management Start: 09-04-2024 End: 09-04-2024 Follow-up encounter Farzana Kelly PA-C Work Phone: [facility] Start: 09-03-2024 End: 09-03-2024 ambulatory Farzana Kelly PA-C Work Phone: [facility] Comment on above: Blood pressure readi ngs Start: 08-28-2024 End: 08-28-2024 Follow-up encounter Farzana Kelly PA-C Work Phone: [facility] Comment on above: Hyponatremia (Primar y Dx); Essential hypertension, benign Start: 08-27-2024 End: 08-27-2024 ambulatory FARZANA KELLY Facility:[facility] Start: 08-27-2024 End: 08-27-2024 Patient encounter procedure Farzana Kelly PA-C Work Phone: [facility] Comment on above: Hospital discharge f ollow-up (Primary Dx); Influenza A; Essential hypertension, benign; Syncope, unspecified syncope type; Chronic obstructive pulmonary disease with acute exacerbation (HCC); ELEN (acute kidney injury) (HCC) Start: 08-20-2024 End: 08-20-2024 ambulatory Alesia Shrestha RN Work Phone: [employer] Start: 08-20-2024 End: 08-20-2024 Chart abstracting Rick Sow MD Work Phone: [facility] Comment on above: D/C Summary Events Initial phone contac t for Transitional Care Management Start: 08-19-2024 Non-patient / Non-visit Dr. Mack An MD -[facility] Work Phone: Start: 08-19-2024 End: 08-19-2024 Chart abstracting Rick Sow MD Work Phone: [facility] Comment on above: Outside Pulm Start: 08-18-2024 End: 08-18-2024 Chart abstracting Rick Sow MD Work Phone: [facility] Comment on above: Infectious Disease C onsult Start: 08-18-2024 Non-patient / Non-visit Dr. Mack An MD -[facility] Work Phone: Start: 08-17-2024 Non-patient / Non-visit Dr. Edd bond DO -[facility] Start: 08-17-2024 End: 08-17-2024 Chart abstracting Red Guerin MA Family Medicine [facility] Comment on above: Hospital F/U ([facility] ) Start: 08-17-2024 ambulatory Rick Sow Facility :[facility] Start: 08-17-2024 Non-patient / Non-visit Dr. Rod ROJAS -[facility] Start: 08-17-2024 Non-patient / Non-visit Dr. Mack An MD -[facility] Work Phone: Start: 08-16-2024 Non-patient / Non-visit Dr. Mack An MD -[facility] Work Phone: Start: 08-15-2024 ambulatory Mack An Facility: [facility] Start: 08-15-2024 End: 08-19-2024 Evaluation and management of inpatient Dr. Mack An MD -Medical Surgical 2 Work Phone: Start: 08-15-2024 End: 08-15-2024 ambulatory RICK SOW Facility:[facility] Start: 08-15-2024 End: 08-15-2024 Office outpatient visit 25 minutes Jhon Nava MD Work Phone: [facility] Comment on above: Influenza A (Primary Dx); Influenza-like illness Start: 07-06-2024 End: 07-16-2024 Telephone encounter Rick Sow MD Work Phone: [facility] Comment on above: Patient Question; Pa tient Update Start: 06-25-2024 End: 06-25-2024 ambulatory RICK SOW Facility:[facility] Start: 06-25-2024 End: 06-25-2024 Patient encounter procedure Farzana Kelly PA-C [facility] Comment on above: Neck sprain, initial encounter (Primary Dx); Neck pain; Neck muscle spasm Start: 06-24-2024 End: 06-24-2024 ambulatory Rick Sow MD Work Phone: [facility] Comment on above: Neck Pain Start: 05-11-2024 End: 05-11-2024 ambulatory RICK SOW Facility:[facility] Start: 05-11-2024 End: 05-11-2024 Nursing evaluation of patient and report Mi Nurse Work Phone: [facility] [place] Comment on above: Encounter for immuni zation (Primary Dx) Start: 04-24-2024 End: 04-24-2024 ambulatory Immunization Clinic Nurse [facility] Work Phone: [facility] Start: 04-24-2024 End: 04-24-2024 Patient encounter procedure Immunization Clinic Nurse [place] Work Phone: [facility] Start: 04-07-2024 End: 04-07-2024 ambulatory FARZANA KELLY Facility:[facility] Start: 04-07-2024 End: 04-07-2024 Ophthalmic examination and evaluation Rick Sow MD Work Phone: [facility] Start: 04-07-2024 End: 04-07-2024 Patient encounter procedure Rick Sow MD Work Phone: [facility] Comment on above: Medicare annual well ness visit, subsequent (Primary Dx); Type 2 diabetes mellitus without complication, without long-term current use of insulin (HCC); Diabetic eye exam (HCC); Essential hypertension, benign; Hyperlipidemia, mixed; 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); Morbid obesity with BMI of 40.0-44.9, adult (HCC); Stasis dermatitis; Varicose veins of both lower extremities, unspecified whether complicated; Venous (peripheral) insufficiency; Benign prostatic hyperplasia with urinary frequency; Foot callus; Advance directive discussed with patient; Encounter for immunization; Screening for depression; Encounter for screening examination for other mental health and behavioral disorders Start: 01-23-2024 Chart abstracting Rick cano MD Work Phone: [facility] [place] Comment on above: outside opthomology Start: 12-05-2023 Refill Rick aguilar MD Work Phone: [facility] [place] Comment on above: Refill Request Start: 10-30-2023 End: 10-30-2023 Nursing evaluation of patient and report Tanner Eric RN Work Phone: Endocrinology Comment on above: Uncontrolled type 2 diabetes mellitus with hyperglycemia (HCC); 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) Start: 10-02-2023 ambulatory Farzana guan PA-C Work Phone: [facility] Comment on above: Medication Start: 10-02-2023 Telephone encounter Farzana HEWITT-C Work Phone: [facility] Comment on above: Patient Question Start: 10-01-2023 End: 10-01-2023 Patient encounter procedure Farzana HEWITT-C Work Phone: [facility] Comment on above: Type 2 diabetes kiko itus without complication, without long- term current use of insulin (HCC) (Primary Dx); Uncontrolled type 2 diabetes mellitus with hyperglycemia (HCC); Rosacea; Hyperlipidemia, mixed; Essential hypertension, benign; 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 Start: 07-11-2023 End: 07-11-2023 Admission to same day surgery center Dr. Kishore De Anda Work Phone: [facility] Work Phone: Start: 07-11-2023 End: 07-11-[address] Kishore De Anda Work Phone: [facility] Work Phone: Start: 06-11-2023 Telephone encounter Red Guerin MA Family Medicine [place] Start: 05-31-2023 End: 05-31-2023 ambulatory Immunization Clinic Nurse [place] Work Phone: [facility] Start: 05-24-2023 End: 05-24-2023 ambulatory Immunization Clinic Nurse [place] Work Phone: Family [facility] [place] Start: 05-17-2023 Telephone encounter Rick Sow MD Work Phone: [facility] Comment on above: Medication Problem ( Cost is too high) Start: 05-07-2023 Refill Farzana Kendrick on PA-C Work Phone: Family [facility] Comment on above: Refill Request Start: 05-02-2023 Telephone encounter Rick Sow MD Work Phone: [facility] Comment on above: Patient Request Start: 04-30-2023 Telephone encounter [facility] MD [facility] Comment on above: Opened In Error Start: 04-29-2023 Refill Rick [facility]uilar MD [facility] Comment on above: Refill Request Start: 04-11-2023 Telephone encounter Rick Sow MD Work Phone: [facility] Comment on above: Results Start: 04-10-2023 End: 04-10-2023 Subsequent hospital visit by physician Kelsie [facility] (I-Stat) Work Phone: Cat Scan Comment on above: Family history of pa ncreatic cancer [Z80.0] Start: 04-08-2023 Telephone encounter Rick Sow MD Work Phone: [facility] Comment on above: Results Start: 04-04-2023 Telephone encounter Rick Sow MD Work Phone: [facility] [place] Comment on above: Medication Problem Start: 04-03-2023 Telephone encounter Rick Sow MD Work Phone: [facility] [place] Comment on above: Patient Request Start: 04-02-2023 End: 04-02-2023 Ophthalmic examination and evaluation Rick Sow MD Work Phone: [facility] Work Phone: Start: 04-02-2023 End: 04-02-2023 Patient encounter procedure Rick Sow MD Work Phone: [facility] [place] Comment on above: Medicare [facility], subsequent (Primary Dx); Type 2 diabetes mellitus without complication, without long-term current use of insulin (HCC); Diabetic eye exam ([facility]); 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); Hyperlipidemia, mixed; Essential hypertension, benign; Morbid obesity with BMI of 40.0-44.9, adult (HCC); Palpitations; Venous stasis dermatitis of both lower extremities; Venous (peripheral) insufficiency; Benign prostatic hyperplasia with urinary frequency; ED (erectile dysfunction) of organic origin; Family history of pancreatic cancer; History of colonic polyps; Screening for colon cancer; Eversion deformity of left foot; Left leg pain; Foot callus; Neoplasm of uncertain behavior of skin of nose; Viral illness; Suspected COVID-19 virus infection Start: 01-21-2023 Chart abstracting Rick cano MD Work Phone: [facility] Comment on above: Consult Start: 09-25-2022 End: 09-25-2022 Ophthalmic examination and evaluation Farzana Kelly PA-C Work Phone: [facility] Start: 09-25-2022 End: 09-25-2022 Patient encounter procedure Farzana Kelly PA-C Work Phone: [facility] [place] Comment on above: Type 2 diabetes kiko itus without complication, without long- term current use of insulin (HCC) (Primary Dx); Uncontrolled type 2 diabetes mellitus with hyperglycemia (HCC); Hyperlipidemia with target LDL less than 100; Essential hypertension, benign; 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 Comment on above: Medication Question Start: 04-26-2022 Refill Rick aguilar MD Work Phone: Family Medicine [place] Comment on above: Refill Request Start: 04-23-2022 Refill Rick aguilar MD Work Phone: [facility] [place] Comment on above: Refill Request Start: 04-03-2022 Telephone encounter Rick Sow MD Work Phone: [facility] [place] Comment on above: Insurance Authorizat ion Start: 04-02-2022 Telephone encounter Rick Sow MD Work Phone: [facility] [place] Comment on above: Refill Request Start: 03-30-2022 Telephone encounter Rick Sow MD Work Phone: [facility] [place] Comment on above: Medication Problem Start: 03-29-2022 Ophthalmic examinati on and evaluation Rick Sow MD Work Phone: [facility] Start: 03-28-2022 Telephone encounter Rick Sow MD Work Phone: [facility] [place] Comment on above: Results Start: 03-28-2022 End: 03-28-2022 Subsequent hospital visit by physician Jose [facility] Work Phone: Radiology Comment on above: Foot pain, left [M79 .672] Start: 03-28-2022 End: 03-28-2022 Patient encounter procedure Rick Sow MD Work Phone: [facility] Work Phone: Comment on above: Medicare annual well ness visit, subsequent (Primary Dx); Advance directive discussed with patient; Type 2 diabetes mellitus without complication, without long-term current use of insulin (HCC); 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); Essential hypertension, benign; Hyperlipidemia, mixed; Venous (peripheral) insufficiency; Venous stasis dermatitis of both lower extremities; Benign prostatic hyperplasia with urinary frequency; Palpitations; Rosacea; ED (erectile dysfunction) of organic origin; Morbid obesity with BMI of 40.0-44.9, adult (HCC); Foot pain, left; Viral warts, unspecified type Start: 03-27-2022 Refill Rick aguilar MD Work Phone: [facility] Comment on above: Refill Request Start: 02-26-2022 End: 02-26-2022 Patient encounter procedure Miladys Juan Carlos MAGAÑA Work Phone: [facility] Comment on above: Suspected COVID-19 v irus infection (Primary Dx); Upper respiratory symptom; Body aches; Rash Start: 12-18-2021 End: 12-18-[address] [facility] Comment on above: Patient Education; A ssessment Start: 11-29-2021 End: 11-29-2021 Patient encounter procedure Rick Sow MD Work Phone: [facility] Comment on above: Proteinuria due to t ype 2 diabetes mellitus (HCC) (Primary Dx); Type 2 diabetes mellitus without complication, without long-term current use of insulin (HCC); Essential hypertension, benign; Hyperlipidemia with target LDL less than 100; Hyperlipidemia, mixed; Morbid obesity with BMI of 40.0-44.9, adult (HCC); Venous (peripheral) insufficiency; Venous stasis dermatitis of both lower extremities; Uncontrolled type 2 diabetes mellitus with hyperglycemia (HCC); Palpitations; Prostate disorder; Cellulitis of skin Procedures Date Procedure Procedure Detail Performing Clinician Start: 03-03-2025 CT of chest without contrast Dr. Rick Sow MD Work Phone: Start: 11-02-2024 CT of chest without contrast Dr. Rick Sow MD Work Phone: Start: 10-16-2024 Cardiovascular stres s test using pharmacologic stress agent Dr. Rick Sow MD Work Phone: Start: 08-18-[address] Rick Sow MD Work Phone: Start: 08-18-2024 Measurement of renal function Dr. Rick Sow MD Work Phone: Comment on above: GFR Calc Start: 08-17-2024 Bacterial nucleic ac id assay Dr. Rick Sow MD Work Phone: Start: 08-17-2024 Assay of phosphorus inorganic Dr. Rick Sow MD Work Phone: Start: 08-17-2024 Plain chest X-ray Dr. Yevgeniy Sow MD Work Phone: Start: 08-16-2024 Gram stain microscopy D michael Sow MD Work Phone: Start: 08-16-2024 Legionella pneumophi la antigen assay Dr. Rick Sow MD Work Phone: Start: 08-16-[address] Rick Sow MD Work Phone: Start: 08-16-2024 Respiratory microbia l culture Dr. Rick Sow MD Work Phone: Start: 08-16-2024 Sars-cov-2 Dr. Steve Sow MD Work Phone: Start: 08-16-2024 Streptococcus pneumo niae antigen assay Dr. Rick Sow MD Work Phone: Start: 08-16-2024 Plain chest X-ray Dr. Yevgeniy Sow MD Work Phone: Start: 08-16-2024 Streptococcus pneumo niae antigen assay Dr. Rick Sow MD Work Phone: Start: 08-15-2024 CT angiography of ch est with contrast Dr. Rick Sow MD Work Phone: Start: 08-15-2024 X-ray of chest, PA a nd lateral views Dr. Rick Sow MD Work Phone: Start: 08-15-2024 INFLUENZA A&B MOLECU LAR (POC) Jhon Nava MD Work Phone: Start: 08-15-2024 Urnls dip stick/tabl et reagent auto microscopy Dr. Rick Sow MD Work Phone: Start: 05-11-2024 PFIZER-BIONTECH COVI D-19 VACCINE AGE 12+ YR (COMIRNATY) Farzana Kelly PA-C Work Phone: Start: 04-07-2024 Adult depression scr eening assessment Rick Sow MD Work Phone: Start: 07-11-2023 End: 07-11-[address] Kishore De Anda Work Phone: Start: 05-31-2023 PFIZER-BIONTECH COVI D-19 VACCINE ( SEASON) AGE 12+ YR Rick Sow MD Work Phone: Start: 05-24-2023 INFLUENZA VACCINE, P RSV FREE, AGE 65+ YR, HIGH DOSE, QUADRIVALENT (FLUZONE HIGH-DOSE) Benigno Cruz DO Work Phone: Start: 04-10-2023 Ct abdomen w/contras t material Rick Sow MD Work Phone: Start: 09-25-2022 PFIZER-BIONTECH COVI D-19 BIVALENT BOOSTER VACCINE, AGE 12+ YR Farzana Kelly PA-C Work Phone: Start: 05-16-2022 INFLUENZA SEASONAL QUADRIVALENT HIGH DOSE AGE 65+ Rick Sow MD Work Phone: Start: 03-28-2022 Radex foot complete minimum 3 views Rick Sow MD Work Phone: Start: 03-28-2022 Adult depression scr eening assessment Rick Sow MD Work Phone: Start: 09-09-2020 Adult depression scr eening assessment Rick Sow MD Work Phone: Start: 06-13-2018 Colonoscopy Rick cano MD Work Phone: Plan of Treatment Date Care Activity Detail Author Start: 07-11-2028 Screening for malign ant neoplasm of colon [facility] Start: 03-21-2027 PROSTATE CANCER SCRE ENING DISCUSSION PROSTATE CANCER SCREENING DISCUSSION [facility] Start: 03-12-2026 Glaucoma screening Dilated Retinal E xam [facility] Start: 11-05-2025 Annual PCP Team [facility] Tender anamika Disease Visit Annual PCP Team Chronic Disease Visit [facility] Start: 10-05-2025 Annual PCP Team Sliver Lap Tender anamika Disease Visit Annual PCP Team Chronic Disease Visit [facility] Start: 09-03-2025 Hepatitis B screening Urine Al bumin:Creatinine Ratio [facility] Start: 09-03-2025 Hepatitis B surface antibody level LDL Cholesterol [facility] Start: 08-27-2025 Annual PCP Team Sliver Lap Tender anamika Disease Visit Annual PCP Team Chronic Disease Visit [facility] Start: 06-25-2025 Annual PCP Team Sliver Lap Tender anamika Disease Visit Annual PCP Team Chronic Disease Visit [facility] Start: 05-19-2025 PROSTATE CANCER SCRE ENING DISCUSSION PROSTATE CANCER SCREENING DISCUSSION [facility] Start: 04-08-2025 End: 04-08-2025 Patient encounter procedure 04/08/2025 10:00 AM EDT Office Visit [facility] [address] [place], [place] [address] Rick Sow MD [address] [place] [id number] Medicare Wellness [facility] [place] Comment on above: Medicare Wellness Start: 04-07-2025 Annual PCP Team Sliver Lap Tender anamika Disease Visit Annual PCP Team Chronic Disease Visit [facility] Start: 04-07-2025 Anxiety Screening Anxiety Screening [facility] Start: 04-07-2025 BP Controlled (<130/80) BP Controlle d (<130/80) [facility] Start: 04-07-2025 End: 07-07-2025 CBC W Auto Differential panel - Blood COMPLETE BLOOD COUNT AND DIFFERENTIAL Lab Routine Essential hypertension, benign Expected: 04/07/2025, Expires: 07/07/2025 [facility] Work Phone: Comment on above: Expected: 04/07/2025 , Expires: 07/07/2025 Start: 04-07-2025 End: 07-07-2025 Comprehensive metabolic 2000 panel - Serum or Plasma COMPREHENSIVE METABOLIC PANEL Lab Routine Uncontrolled type 2 diabetes mellitus with hyperglycemia (HCC) Expected: 04/07/2025, Expires: 07/07/2025 [facility] Comment on above: Expected: 04/07/2025 , Expires: 07/07/2025 Start: 04-07-2025 Covid-19 Vaccine () Covid-19 Vaccine () [facility] Comment on above: Postponed from 03/15 (Currently Scheduled) Start: 04-07-2025 Depression Screening Depression Scre ening [facility] Start: 04-07-2025 Diabetic foot examination Diabetic F oot Exam [facility] Start: 04-07-2025 End: 07-07-2025 Hemoglobin A1c in Blood HEMOGLOBIN A1C Lab Routine Type 2 diabetes mellitus without complication, without long-term current use of insulin (HCC) Uncontrolled type 2 diabetes mellitus with hyperglycemia (HCC) Expected: 04/07/2025, Expires: 07/07/2025 [facility] Comment on above: Expected: 04/07/2025 , Expires: 07/07/2025 Start: 04-07-2025 End: 07-07-2025 LIPID PANEL, NONFASTING LIPID PANEL, NONFASTING Lab Routine Hyperlipidemia, mixed Expected: 04/07/2025, Expires: 07/07/2025 [facility] Comment on above: Expected: 04/07/2025 , Expires: 07/07/2025 Start: 04-07-2025 Medicare Annual Well ness Visit Medicare Annual Wellness Visit [facility] Start: 04-07-2025 End: 07-07-2025 Microalbumin/Creatinine [Mass Ratio] in Urine ALBUMIN/CREATININE RATIO, URINE Lab Routine Type 2 diabetes mellitus without complication, without long-term current use of insulin (HCC) Expected: 04/07/2025, Expires: 07/07/2025 [facility] Comment on above: Expected: 04/07/2025 , Expires: 07/07/2025 Start: 04-07-2025 End: 07-07-2025 Prostate specific Ag [Mass/volume] in Serum or Plasma PROSTATE-SPECIFIC ANTIGEN DIAGNOSTIC Lab Routine Prostate disorder Expected: 04/07/2025, Expires: 07/07/2025 [facility] Comment on above: Expected: 04/07/2025 , Expires: 07/07/2025 Start: 04-07-2025 RSV Vaccine (1 - Ris k 60-74 years 1-dose series) RSV Vaccine (1 - Risk 60-74 years 1-dose series) [facility] Comment on above: Postponed from 12/22 (Insurance Coverage) Start: 04-07-2025 Shingrix Vaccine (1 of 2) Partida grix Vaccine (1 of 2) [facility] Comment on above: Postponed from 12/22 (Insurance Coverage) Start: 04-07-2025 End: 07-07-2025 Urinalysis complete panel - Urine URINALYSIS, WITH MICROSCOPIC Lab Routine 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) Expected: 04/07/2025, Expires: 07/07/2025 [facility] Comment on above: Expected: 04/07/2025 , Expires: 07/07/2025 Start: 04-07-2025 Urine microalbumin profile DTaP,Tdap,Td Vaccine (1 - Tdap) [facility] Comment on above: Postponed from 12/22 (Insurance Coverage) Start: 04-01-2025 Hepatitis B screening Urine Al bumin:Creatinine Ratio [facility] Start: 04-01-2025 Hepatitis B surface antibody level LDL Cholesterol [facility] Start: 03-15-2025 Influenza vaccination Influenza Vacc ine (#1) [facility] Start: 03-03-2025 Hemoglobin A1c measurement HbA1C [facility] Start: 01-13-2025 Glaucoma screening Dilated Retinal E xam [facility] Start: 01-11-2025 Influenza vaccination Influenza Vacc ine (#1) [facility] Comment on above: Postponed from 03/15 (Currently Scheduled) Start: 11-09-2024 Covid-19 Vaccine ( season) Covid-19 Vaccine ( season) [facility] Start: 11-05-2024 End: 11-05-2024 Patient encounter procedure 11/05/2024 9:20 AM EDT Office Visit [facility] [address] [place] [address] Farzana Kelly PA-C [address] [place] [address] [facility] Comment on above: Rash Start: 10-30-2024 Measurement of respiratory function [facility] Start: 10-28-2024 Walking distance 6 minutes [facility] Start: 10-05-2024 End: 10-05-2024 Patient encounter procedure 10/05/2024 11:40 AM EDT Office Visit Family [facility] [address] [place] [address] Farzana Kelly PA-C [address] [place] [address] 6 month follow up Family [facility] Comment on above: 6 month follow up Start: 10-05-2024 End: 10-05-2024 Patient encounter procedure 10/05/2024 10:20 AM EDT Office Visit Family [facility] [address] [place] [address] Farzana Kelly PA-C [address] [place] [address] 6 month follow up Family [facility] Comment on above: 6 month follow up Start: 09-30-2024 Annual PCP Team Sliver Lap Tender anamika Disease Visit Annual PCP Team Chronic Disease Visit [facility] Start: 09-30-2024 BP Controlled (<130/80) BP Controlle d (<130/80) [facility] Start: 09-29-2024 Hemoglobin A1c measurement HbA1C [facility] Start: 09-27-2024 Hepatitis B screening Urine Al bumin:Creatinine Ratio [facility] Start: 09-27-2024 Hepatitis B surface antibody level LDL Cholesterol [facility] Start: 09-25-2024 End: 12-25-2024 Hemoglobin A1c in Blood HEMOGLOBIN A1C Lab Routine Type 2 diabetes mellitus without complication, without long-term current use of insulin ([facility]) Expected: 09/25/2024, Expires: 12/25/2024 [facility] Work Phone: Comment on above: Expected: 09/25/2024 , Expires: 12/25/2024 Start: 09-25-2024 End: 12-25-2024 LIPID PANEL, NONFASTING LIPID PANEL, NONFASTING Lab Routine Type 2 diabetes mellitus without complication, without long-term current use of insulin ([facility]) Essential hypertension, benign Hyperlipidemia, mixed Expected: 09/25/2024, Expires: 12/25/2024 [facility] Comment on above: Expected: 09/25/2024 , Expires: 12/25/2024 Start: 09-25-2024 End: 12-25-2024 Microalbumin/Creatinine [Mass Ratio] in Urine ALBUMIN/CREATININE RATIO, URINE Lab Routine Type 2 diabetes mellitus without complication, without long-term current use of insulin ([facility]) Expected: 09/25/2024, Expires: 12/25/2024 [facility] Comment on above: Expected: 09/25/2024 , Expires: 12/25/2024 Start: 09-04-2024 End: 11-27-2024 Basic metabolic 2000 panel - Serum or Plasma BASIC METABOLIC PANEL Lab Routine Hyponatremia Essential hypertension, benign Expected: 09/04/2024, Expires: 11/27/2024 [facility] Work Phone: Comment on above: Expected: 09/04/2024 , Expires: 11/27/2024 Start: 08-27-2024 End: 11-26-2024 Basic metabolic 2000 panel - Serum or Plasma [facility] Work Phone: Comment on above: Expected: 08/27/2024 , Expires: 11/26/2024 Start: 08-26-2024 End: 08-26-2024 Patient encounter procedure 08/26/2024 2:00 PM EST Office Visit [facility] [address] [place], [place] [id number] Rick Sow MD [address] [place], [place] [id number] Patient discharged from [facility] Comment on above: Patient discharged f rom [facility] Start: 08-19-2024 Patient discharge [facility] Start: 08-19-2024 [facility] Start: 08-17-2024 Continuous pulse oximetry [facility] Start: 08-17-2024 Care planning and pr oblem solving actions [facility] Start: 08-17-2024 Consultation [facility] Start: 08-17-2024 Consultation [facility] Start: 08-17-2024 [facility] Start: 08-16-2024 Following clinical pathway protocol [facility] Start: 08-16-2024 Care regimes management [facility] Start: 08-16-2024 Inhalation therapy procedure [facility] Start: 08-16-2024 Insertion of cathete r into peripheral vein [facility] Start: 08-16-2024 Measuring intake and output [facility] Start: 08-16-2024 Notification of physician [facility] Start: 08-16-2024 Oxygen therapy [facility] Start: 08-16-2024 Providing care accor ding to standard [facility] Start: 08-16-2024 Provision of activit y privileges [facility] Start: 08-16-2024 Referral to occupati onal therapist [facility] Start: 08-16-2024 Referral to service [facility] Start: 08-16-2024 Respiratory secretio n precautions [facility] Start: 08-16-2024 End: 08-16-2024 [facility] Start: 08-16-2024 Consultation [facility] Start: 08-15-2024 Cardiac monitoring [facility] Start: 08-15-2024 Catheterization of vein [facility] Start: 08-15-2024 Notification of physician [facility] Start: 08-15-2024 Vital signs measurements [facility] Start: 08-15-2024 [facility] Start: 08-15-2024 Admission procedure [facility] Start: 07-15-2024 Advance Directive Discussion Advance Directive Discussion [facility] Start: 06-25-2024 End: 06-25-2024 Patient encounter procedure 06/25/2024 10:00 AM EST Office Visit [facility] [address] [place], [place] [phone] Farzana Kelly PA-C [address] [facility] [id number] Neck Pain. See triage 06/24/2024 [facility] Comment on above: Neck Pain. See triag e 06/24/2024 Start: 04-07-2024 End: 04-07-2024 Patient encounter procedure 04/07/2024 10:40 AM EDT Office Visit [facility] [place] [address] [facility] [place] [id number] Rick Sow MD [address] [facility] [place] [id number] medicare wellness [facility] [place] Comment on above: medicare wellness Start: 04-02-2024 3 comp foot exam completed Diabetic Foot Exam [facility] Start: 04-02-2024 End: 07-02-2024 ALBUMIN/CREAT RATIO RND UR ALBUMIN/CREAT RATIO RND UR Lab Routine Type 2 diabetes mellitus without complication, without long-term current use of insulin (HCC) Uncontrolled type 2 diabetes mellitus with hyperglycemia (HCC) Expected: 04/02/2024, Expires: 07/02/2024 [facility] Work Phone: Comment on above: Expected: 04/02/2024 , Expires: 07/02/2024 Start: 04-02-2024 Annual PCP Team [facility] Lap Tender anamika Disease Visit Annual PCP Team Chronic Disease Visit [facility] Start: 04-02-2024 BP Controlled (<130/80) BP Controlle d (<130/80) [facility] Start: 04-02-2024 End: 07-02-2024 CBC W Auto Differential panel - Blood CBC + DIFF Lab Routine Type 2 diabetes mellitus without complication, without long-term current use of insulin (HCC) Uncontrolled type 2 diabetes mellitus with hyperglycemia (HCC) Expected: 04/02/2024, Expires: 07/02/2024 [facility] Work Phone: Comment on above: Expected: 04/02/2024 , Expires: 07/02/2024 Start: 04-02-2024 End: 07-02-2024 Comprehensive metabolic 2000 panel - Serum or Plasma COMP METABOLIC PANEL Lab Routine Type 2 diabetes mellitus without complication, without long-term current use of insulin (HCC) Uncontrolled type 2 diabetes mellitus with hyperglycemia (HCC) Expected: 04/02/2024, Expires: 07/02/2024 [facility] Work Phone: Comment on above: Expected: 04/02/2024 , Expires: 07/02/2024 Start: 04-02-2024 Covid-19 Vaccine () Covid-19 Vaccine () [facility] Comment on above: Postponed from 03/15 (Not Currently Available) Start: 04-02-2024 Covid-19 Vaccine (5 - Pfizer series) Covid-19 Vaccine (5 - Pfizer series) [facility] Comment on above: Postponed from 01/25 (Not Currently Available) Start: 04-02-2024 Diabetic foot examination Diabetic F oot Exam [facility] Start: 04-02-2024 End: 07-02-2024 Hemoglobin A1c in Blood HGB A1C Lab Routine Type 2 diabetes mellitus without complication, without long-term current use of insulin (HCC) Uncontrolled type 2 diabetes mellitus with hyperglycemia (HCC) Expected: 04/02/2024, Expires: 07/02/2024 [facility] Work Phone: Comment on above: Expected: 04/02/2024 , Expires: 07/02/2024 Start: 04-02-2024 End: 07-02-2024 LIPID PANEL, NONFASTING LIPID PANEL, NONFASTING Lab Routine Hyperlipidemia, mixed Expected: 04/02/2024, Expires: 07/02/2024 [facility] Work Phone: Comment on above: Expected: 04/02/2024 , Expires: 07/02/2024 Start: 04-02-2024 Pneumococcal Vaccine : 65+ (3 - PPSV23 or PCV20) Pneumococcal Vaccine: 65+ (3 - PPSV23 or PCV20) [facility] Comment on above: Postponed from 05/02 (Declined at this time) Start: 04-02-2024 Pneumococcal Vaccine : 65+ (3 of 3 - PPSV23 or PCV20) Pneumococcal Vaccine: 65+ (3 of 3 - PPSV23 or PCV20) [facility] Comment on above: Postponed from 05/02 (Declined at this time) Start: 04-02-2024 End: 07-02-2024 Prostate specific Ag [Mass/volume] in Serum or Plasma PSA/PROSTSPECAG DIAG Lab Routine Prostate disorder Expected: 04/02/2024, Expires: 07/02/2024 [facility] Work Phone: Comment on above: Expected: 04/02/2024 , Expires: 07/02/2024 Start: 04-02-2024 Shingrix Vaccine (1 of 2) Partida grix Vaccine (1 of 2) [facility] Comment on above: Postponed from 12/22 (Insurance Coverage) Start: 04-02-2024 End: 07-02-2024 Urinalysis complete panel - Urine URINALYSIS, WITH MICROSCOPIC Lab Routine Type 2 diabetes mellitus without complication, without long-term current use of insulin (HCC) Expected: 04/02/2024, Expires: 07/02/2024 [facility] Work Phone: Comment on above: Expected: 04/02/2024 , Expires: 07/02/2024 Start: 04-02-2024 Urine microalbumin profile DTaP,Tdap,Td Vaccine (1 - Tdap) [facility] Comment on above: Postponed from 12/22 (Insurance Coverage) Start: 03-30-2024 Hemoglobin A1c measurement HbA1C [facility] Start: 03-22-2024 Hepatitis B screening Urine Al bumin:Creatinine Ratio [facility] Start: 03-22-2024 Hepatitis B surface antibody level LDL Cholesterol [facility] Start: 03-15-2024 Influenza vaccination Influenza Vacc ine (#1) [facility] Start: 01-12-2024 Influenza vaccination Influenza Vacc ine (#1) [facility] Comment on above: Postponed from 03/15 (Declined at this time) Start: 01-11-2024 Glaucoma screening Dilated Retinal E xam [facility] Start: 01-11-2024 Hepatitis C antibody , confirmatory test DILATED RETINAL EXAM [facility] Start: 09-29-2023 Covid-19 Vaccine () Covid-19 Vaccine () [facility] Start: 09-26-2023 ANNUAL PCP TEAM [employer] SERVICEPERSON ANAMIKA DISEASE VISIT ANNUAL PCP TEAM CHRONIC DISEASE VISIT [facility] Start: 09-20-2023 End: 11-20-2023 ALBUMIN/CREAT RATIO RND UR ALBUMIN/CREAT RATIO RND UR Lab Routine Type 2 diabetes mellitus without complication, without long-term current use of insulin (HCC) 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) Expected: 09/20/2023, Expires: 11/20/2023 [facility] Work Phone: Comment on above: Expected: 09/20/2023 , Expires: 11/20/2023 Start: 09-20-2023 End: 11-20-2023 Basic metabolic 2000 panel - Serum or Plasma BASIC METABOLIC PNL Lab Routine Type 2 diabetes mellitus without complication, without long-term current use of insulin (HCC) Hyperlipidemia, mixed Essential hypertension, benign Expected: 09/20/2023, Expires: 11/20/2023 [facility] Work Phone: Comment on above: Expected: 09/20/2023 , Expires: 11/20/2023 Start: 09-20-2023 End: 11-20-2023 Hemoglobin A1c in Blood HGB A1C Lab Routine Type 2 diabetes mellitus without complication, without long-term current use of insulin (HCC) 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) Expected: 09/20/2023, Expires: 11/20/2023 [facility] Work Phone: Comment on above: Expected: 09/20/2023 , Expires: 11/20/2023 Start: 09-20-2023 Hemoglobin A1c measurement HbA1C [facility] Start: 09-20-2023 Hemoglobin A1c/Hemoglobin.total in Blood HbA1C [facility] Start: 09-20-2023 Hepatitis B screening URINE AL BUMIN:CREATININE RATIO [facility] Start: 09-20-2023 Hepatitis B surface antibody level LDL CHOLESTEROL [facility] Start: 09-20-2023 End: 11-20-2023 LIPID PANEL, NONFASTING LIPID PANEL, NONFASTING Lab Routine Type 2 diabetes mellitus without complication, without long-term current use of insulin (HCC) Hyperlipidemia, mixed Essential hypertension, benign Expected: 09/20/2023, Expires: 11/20/2023 [facility] Work Phone: Comment on above: Expected: 09/20/2023 , Expires: 11/20/2023 Start: 07-15-2023 Advance Directive Discussion Advance Directive Discussion [facility] Start: 07-15-2023 Behavioral Health Screening Behavioral Health Screening [facility] Start: 07-15-2023 Depression Assessment Depression Ass essment [facility] Start: 07-11-2023 Patient discharge [facility] Start: 06-13-2023 Colonoscopy COLONOSCOPY [facility] Start: 06-13-2023 COLORECTAL CANCER SCREENING COLORECTAL CANCER SCREENING [facility] Start: 05-02-2023 PNEUMOCOCCAL: 65+ (3 - PPSV23 if available, else PCV20) PNEUMOCOCCAL: 65+ (3 - PPSV23 if available, else PCV20) [facility] Start: 05-02-2023 PNEUMOCOCCAL: 65+ (3 - PPSV23 or PCV20) PNEUMOCOCCAL: 65+ (3 - PPSV23 or PCV20) [facility] Start: 05-02-2023 PNEUMOVAX AGE 65 AND OVER WITH 5YR LOOKBACK (#1) PNEUMOVAX AGE 65 AND OVER WITH 5YR LOOKBACK (#1) [facility] Start: 04-08-2023 End: 06-08-2023 CREATININE BLD CREATININE BLD Lab Routine Type 2 diabetes mellitus without complication, without long-term current use of insulin (HCC) Expected: 04/08/2023, Expires: 06/08/2023 [facility] Work Phone: Comment on above: Expected: 04/08/2023 , Expires: 06/08/2023 Start: 03-28-2023 Adult depression screening assessment DEPRESSION SCREENING [facility] Start: 03-28-2023 ANNUAL PCP TEAM [employer] SERVICEPERSON ANAMIKA DISEASE VISIT ANNUAL PCP TEAM CHRONIC DISEASE VISIT [facility] Start: 03-28-2023 SHINGRIX VACCINE (1 of 2) PARTIDA GRIX VACCINE (1 of 2) [facility] Comment on above: Postponed from 12/22 (Not Currently Available) Start: 03-25-2023 End: 05-25-2023 ALBUMIN/CREAT RATIO RND UR ALBUMIN/CREAT RATIO RND UR Lab Routine Uncontrolled type 2 diabetes mellitus with hyperglycemia (HCC) 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) Expected: 03/25/2023, Expires: 05/25/2023 [facility] Work Phone: Comment on above: Expected: 03/25/2023 , Expires: 05/25/2023 Start: 03-25-2023 End: 05-25-2023 Comprehensive metabolic 2000 panel - Serum or Plasma COMP METABOLIC PANEL Lab Routine Essential hypertension, benign Expected: 03/25/2023, Expires: 05/25/2023 [facility] Work Phone: Comment on above: Expected: 03/25/2023 , Expires: 05/25/2023 Start: 03-25-2023 End: 05-25-2023 Hemoglobin A1c in Blood HGB A1C Lab Routine 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) Expected: 03/25/2023, Expires: 05/25/2023 [facility] Work Phone: Comment on above: Expected: 03/25/2023 , Expires: 05/25/2023 Start: 03-25-2023 End: 05-25-2023 LIPID PANEL, NONFASTING LIPID PANEL, NONFASTING Lab Routine Hyperlipidemia, mixed Expected: 03/25/2023, Expires: 05/25/2023 [facility] Work Phone: Comment on above: Expected: 03/25/2023 , Expires: 05/25/2023 Start: 03-25-2023 End: 05-25-2023 Prostate specific Ag [Mass/volume] in Serum or Plasma PSA/PROSTSPECAG DIAG Lab Routine Prostate disorder Expected: 03/25/2023, Expires: 05/25/2023 [facility] Work Phone: Comment on above: Expected: 03/25/2023 , Expires: 05/25/2023 Start: 03-25-2023 End: 05-25-2023 Urinalysis complete panel - Urine URINALYSIS, WITH MICROSCOPIC Lab Routine Essential hypertension, benign Expected: 03/25/2023, Expires: 05/25/2023 [facility] Work Phone: Comment on above: Expected: 03/25/2023 , Expires: 05/25/2023 Start: 03-22-2023 Hemoglobin A1c/Hemoglobin.total in Blood HBA1C [facility] Start: 03-21-2023 Hepatitis B screening URINE AL BUMIN:CREATININE RATIO [facility] Start: 03-21-2023 Hepatitis B surface antibody level LDL CHOLESTEROL [facility] Start: 03-15-2023 Influenza vaccination INFLUENZA (#1) [facility] Start: 02-19-2023 3 comp foot exam completed DIABETIC FOOT EXAM [facility] Comment on above: Postponed from 07/28 (Postponed To Appropriate Date) Start: 01-25-2023 COVID-19 VACCINE (5 - Pfizer series) COVID-19 VACCINE (5 - Pfizer series) [facility] Start: 01-11-2023 Hepatitis C antibody , confirmatory test DILATED RETINAL EXAM [facility] Start: 11-29-2022 ANNUAL PCP TEAM [employer] SERVICEPERSON ANAMIKA DISEASE VISIT ANNUAL PCP TEAM CHRONIC DISEASE VISIT [facility] Start: 11-29-2022 Hepatitis B surface antibody level LDL CHOLESTEROL [facility] Start: 09-18-2022 Hemoglobin A1c/Hemoglobin.total in Blood HBA1C [facility] Start: 09-14-2022 End: 11-14-2022 ALBUMIN/CREAT RATIO RND UR ALBUMIN/CREAT RATIO RND UR Lab Routine Type 2 diabetes mellitus without complication, without long-term current use of insulin (HCC) 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) Expected: 09/14/2022, Expires: 11/14/2022 [facility] Work Phone: Comment on above: Expected: 09/14/2022 , Expires: 11/14/2022 Start: 09-14-2022 End: 11-14-2022 Hemoglobin A1c in Blood HGB A1C Lab Routine Type 2 diabetes mellitus without complication, without long-term current use of insulin (HCC) 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) Expected: 09/14/2022, Expires: 11/14/2022 [facility] Work Phone: Comment on above: Expected: 09/14/2022 , Expires: 11/14/2022 Start: 09-14-2022 End: 11-14-2022 LIPID PANEL, NONFASTING LIPID PANEL, NONFASTING Lab Routine Type 2 diabetes mellitus without complication, without long-term current use of insulin (HCC) Essential hypertension, benign Hyperlipidemia, mixed Expected: 09/14/2022, Expires: 11/14/2022 [facility] Work Phone: Comment on above: Expected: 09/14/2022 , Expires: 11/14/2022 Start: 07-28-2022 3 comp foot exam completed DIABETIC FOOT EXAM [facility] Start: 07-28-2022 BP CONTROLLED (<130/80) BP CONTROLLE D (<130/80) [facility] Start: 07-28-2022 Urine microalbumin profile DTAP,TDAP,TD (1 - Tdap) [facility] Comment on above: Postponed from 12/22 (Insurance Coverage) Start: 07-15-2022 ADVANCE DIRECTIVE DISCUSSION ADVANCE DIRECTIVE DISCUSSION [facility] Start: 07-15-2022 DEPRESSION ASSESSMENT DEPRESSION ASS ESSMENT [facility] Start: 06-01-2022 Hemoglobin A1c/Hemoglobin.total in Blood HBA1C [facility] Start: 05-11-2022 Hepatitis B screening URINE AL BUMIN:CREATININE RATIO [facility] Start: 05-11-2022 Hepatitis B surface antibody level LDL CHOLESTEROL [facility] Start: 03-16-2022 End: 05-16-2022 ALBUMIN/CREAT RATIO RND UR ALBUMIN/CREAT RATIO RND UR Lab Routine Type 2 diabetes mellitus without complication, without long-term current use of insulin (HCC) Expected: 03/16/2022, Expires: 05/16/2022 [facility] Work Phone: Comment on above: Expected: 03/16/2022 , Expires: 05/16/2022 Start: 03-16-2022 End: 05-16-2022 Comprehensive metabolic 2000 panel - Serum or Plasma COMP METABOLIC PANEL Lab Routine Type 2 diabetes mellitus without complication, without long-term current use of insulin (HCC) Essential hypertension, benign Hyperlipidemia with target LDL less than 100 Expected: 03/16/2022, Expires: 05/16/2022 [facility] Work Phone: Comment on above: Expected: 03/16/2022 , Expires: 05/16/2022 Start: 03-16-2022 End: 05-16-2022 Hemoglobin A1c/Hemoglobin.total in Blood HGB A1C Lab Routine Type 2 diabetes mellitus without complication, without long-term current use of insulin (HCC) 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) Uncontrolled type 2 diabetes mellitus with hyperglycemia (HCC) Expected: 03/16/2022, Expires: 05/16/2022 [facility] Work Phone: Comment on above: Expected: 03/16/2022 , Expires: 05/16/2022 Start: 03-16-2022 End: 05-16-2022 LIPID PANEL, NONFASTING LIPID PANEL, NONFASTING Lab Routine Type 2 diabetes mellitus without complication, without long-term current use of insulin ([facility]) Essential hypertension, benign Hyperlipidemia with target LDL less than 100 Expected: 03/16/2022, Expires: 05/16/2022 [facility] Work Phone: Comment on above: Expected: 03/16/2022 , Expires: 05/16/2022 Start: 03-16-2022 End: 05-16-2022 Prostate specific Ag [Mass/volume] in Serum or Plasma PSA/PROSTSPECAG DIAG Lab Routine Prostate disorder Expected: 03/16/2022, Expires: 05/16/2022 [facility] Work Phone: Comment on above: Expected: 03/16/2022 , Expires: 05/16/2022 Start: 03-16-2022 End: 05-16-2022 Urinalysis complete panel - Urine URINALYSIS, WITH MICROSCOPIC Lab Routine Type 2 diabetes mellitus without complication, without long-term current use of insulin ([facility]) Essential hypertension, benign Hyperlipidemia with target LDL less than 100 Expected: 03/16/2022, Expires: 05/16/2022 [facility] Work Phone: Comment on above: Expected: 03/16/2022 , Expires: 05/16/2022 Start: 03-15-2022 Influenza vaccination INFLUENZA (#1) [facility] Start: 02-26-2022 End: 03-12-2022 SARS-CoV-2 (COVID-19) RNA [Presence] in Respiratory specimen by LEO with probe detection [facility] Work Phone: Comment on above: Expected: 02/26/2022 , Expires: 03/12/2022 Start: 12-06-2021 Hepatitis C antibody , confirmatory test DILATED RETINAL EXAM [facility] Start: 11-29-2021 End: 01-29-2022 Hemoglobin A1c/Hemoglobin.total in Blood [facility] Work Phone: Comment on above: Expected: 11/29/2021 , Expires: 01/29/2022 Start: 11-29-2021 End: 01-29-2022 LIPID PANEL, NONFASTING [facility] Work Phone: Comment on above: Expected: 11/29/2021 , Expires: 01/29/2022 Start: 10-26-2021 Hemoglobin A1c/Hemoglobin.total in Blood HBA1C [facility] Start: 10-03-2021 COVID-19 VACCINE (4 - Booster for Pfizer series) COVID-19 VACCINE (4 - Booster for Pfizer series) [facility] Start: 09-09-2021 Adult depression screening assessment DEPRESSION SCREENING [facility] Start: 07-31-2021 COVID-19 VACCINE (4 - Booster for Pfizer series) COVID-19 VACCINE (4 - Booster for Pfizer series) [facility] Start: 07-15-2021 ADVANCE DIRECTIVE DISCUSSION ADVANCE DIRECTIVE DISCUSSION [facility] Start: 07-15-2021 DEPRESSION ASSESSMENT DEPRESSION ASS ESSMENT [facility] Start: 2013 RSV Vaccine (1 - 1-d ose 60+ series) RSV Vaccine (1 - 1-dose 60+ series) [facility] Start: 12-23-2003 SHINGRIX VACCINE (1 of 2) PARTIDA GRIX VACCINE (1 of 2) [facility] Start: 1998 COLOGUARD (FIT-DNA) COLOGUARD (FIT-D NA) [facility] Start: [address] [facility] Start: 1998 FECAL OCCULT BLOOD FECAL OCCULT BLOO D [facility] Start: 1998 Screening for malign ant neoplasm of colon [facility] Start: 1998 SIGMOIDOSCOPY SIGMOIDOSCOPY [facility] Start: 1972 Urine microalbumin profile DTAP,TDAP,TD (1 - Tdap) [facility] Ambulatory ECG [facility] Basic metabolic 2008 panel with ionized calcium - Serum or Plasma [facility] COVID & INFLUENZA A/ B & RSV NAAT, ROUTINE COVID & INFLUENZA A/B & RSV NAAT, ROUTINE Microbiology Routine Viral illness Suspected COVID-19 virus infection 04/02/2023 10:37 AM EDT [facility] Work Phone: End: 05-07-2024 Ct abdomen w/contrast material CT PANCREAS W IVCON Radiology Routine Family history of pancreatic cancer 1 Occurrences starting 04/08/2023 until 05/07/2024 [facility] Work Phone: Comment on above: 1 Occurrences starti ng 04/08/2023 until 05/07/2024 CT Chest WO contrast [facility] CT Chest WO contrast [facility] Patient referral [facility] Work Phone: Polysomnography [facility] ROUTINE FLU A/B + RSV ROUTINE FL U A/B + RSV Lab Routine Viral illness Suspected COVID-19 virus infection 04/02/2023 10:37 AM EDT [facility] Work Phone: SARS-CoV-2 (COVID-19 ) RNA [Presence] in Respiratory specimen by LEO with probe detection COVID NAAT, UPPER RESPIRATORY, ROUTINE Microbiology Routine Viral illness Suspected COVID-19 virus infection 04/02/2023 10:37 AM EDT [facility] Work Phone: End: 05-01-2024 US ABD RIGHT UPPER QUADRANT US ABD RIGHT UPPER QUADRANT Radiology Routine Family history of pancreatic cancer 1 Occurrences starting 04/02/2023 until 05/01/2024 [facility] Work Phone: Comment on above: 1 Occurrences starti ng 04/02/2023 until 05/01/[address] [facility] Immunizations Immunization Date Immunization Notes Care Provider Jero simon 05-11-2024 COVID-19 vaccine, ag e 12+ yr (PFIZER-BIONTECH COMIRNATY) Ny Nurse Work Phone: [facility] 04-24-2024 influenza, high dose seasonal, preservative-free Immunization [place] Work Phone: [facility] 04-24-2024 influenza virus vaccine, unspecified formulation Rick Sow MD Work Phone: [facility] 04-07-2024 pneumococcal conjuga te (PCV20) vaccine, 20 valent (PREVNAR 20) Rick Sow MD Work Phone: [facility] 04-07-2024 pneumococcal Conjuga te, unspecified formulation Rick Sow MD Work Phone: [facility] 05-31-2023 COVID-19 vaccine, ag e 12+ yr, season (PFIZER-BIONTECH) Immunization [place] Work Phone: [facility] Work Phone: 05-24-2023 influenza (HD-IIV4) vaccine, age 65+ yr, high dose, quadrivalent, PF (FLUZONE HIGH-DOSE) Immunization [place] Work Phone: [facility] Work Phone: 05-24-2023 influenza virus vaccine, unspecified formulation Rick Sow MD Work Phone: [facility] 09-25-2022 COVID-19 booster vaccine, age 12+ yr, bivalent (PFIZER-BIONTECH) Farzana Kelly PA-C Work Phone: [facility] 05-16-2022 influenza, high-dose , quadrivalent vaccine (FLUZONE HIGH DOSE QUADRIVALENT) Ny Nurse Work Phone: [facility] Work Phone: 05-16-2022 influenza virus vaccine, unspecified formulation Rick Sow MD Work Phone: [facility] 05-20-2021 influenza, high-dose , quadrivalent vaccine (FLUZONE HIGH DOSE QUADRIVALENT) Rick Sow MD Work Phone: [facility] 10-18-2020 Covid (Pfizer) [facility] 09-27-2020 Covid (Pfizer) [facility] 05-30-2020 influenza, high-dose , quadrivalent vaccine (FLUZONE HIGH DOSE QUADRIVALENT) Rick Sow MD Work Phone: [facility] 05-06-2019 influenza, high dose seasonal, preservative-free Rick Sow MD Work Phone: [facility] 05-02-2018 pneumococcal polysaccharide vaccine, 23 valent Rick Sow MD Work Phone: [facility] 04-23-2018 influenza, injectabl e, quadrivalent, preservative free Rick Sow MD Work Phone: [facility] 04-23-2018 influenza, seasonal, injectable Rick Sow MD Work Phone: [facility] 04-19-2017 influenza, injectabl e, quadrivalent, preservative free Rick Sow MD Work Phone: [facility] 09-21-2014 pneumococcal conjuga te vaccine, 13 valent Rick Sow MD Work Phone: [facility] 08-08-2012 influenza virus vaccine, unspecified formulation Rick Sow MD Work Phone: [facility] Payers Date Payer Category Payer Self-pay [id number] 2019 Private Health Insurance MMO MED ICARE SUPPLEMENT [id number] 2019 Unknown MMO MMO MEDICARE SUPPLEMENT [id number] 2019-Present [phone] [address] [place] [address] Indemnity [id number] 2019 Unknown MMO MMO MEDICARE SUPPLEMENT [id number] 2019-Present [phone] [address] [place] [address] Indemnity [id number] 2019 Unknown [id number] 2018 Medicare MEDICARE MEDICAR E A AND B [id number] 2018-Present [phone] [address] [address] [place] [address] Medicare [id number] 2018 Medicare [id number] 2018 Medicare [id number] 2016 Unknown [id number] Unknown [id number] 2.840.1.366239.3.579.2. 462 Unknown [id number] 2.840.1.705673.3.579.2. 462 Unknown [id number] 2.16840.1.522627.3.579.2. 462 Unknown [id number] 2.16.840.1.987130.3.579.2. 462 Unknown [id number] 2.16.840.1.641270.3.579.2. 462 Unknown [id number] 2.16.840.1.742742.3.579.2. 462 Unknown [id number] 2.16.840.1.136080.3.579.2. 462 Unknown [id number] 2.16.840.1.576066.3.579.2. 462 Unknown [id number] 2.16.840.1.237791.3.579.2. 462 Unknown [id number] 2.16.840.1.200435.3.579.2. 462 Unknown [id number] 2.16840.1.483562.3.579.2. 462 Unknown [id number] 2.16840.1.939852.3.579.2. 462 Unknown [id number] 2.16.840.1.486286.3.579.2. 462 Unknown [id number] 2.16.840.1.818140.3.579.2. 462 Unknown [id number] 2.16.840.1.241280.3.579.2. 462 Unknown [id number] 2.16.840.1.246588.3.579.2. 462 Unknown [id number] 2.16840.1.201058.3.579.2. 462 Unknown [id number] 2.16840.1.792478.3.579.2. 462 Unknown [id number] 2.16.840.1.446683.3.579.2. 462 Unknown [id number] 2.16.840.1.362709.3.579.2. 462 Unknown [id number] 2.16.840.1.668732.3.579.2. 462 Unknown [id number] 2.16.840.1.269484.3.579.2. 462 Unknown [id number] 2.16.840.1.241611.3.579.2. 462 Unknown [id number] 2.16.840.1.132493.3.579.2. 462 Unknown [id number] 2.16.840.1.550254.3.579.2. 462 Unknown [id number] 2.16.840.1.179682.3.579.2. 462 Unknown [id number] 2.16.840.1.271251.3.579.2. 462 Unknown [id number] 2.16.840.1.275673.3.579.2. 462 Unknown [id number] 2.16.840.1.017358.3.579.2. 462 Unknown [id number] 2.16.840.1.900370.3.579.2. 462 Social History Date Type Detail Facility Tobacco smoking stat [facility] Unknown if ever smoked [facility] Work Phone: Start: 1955 Sex Assigned At Male [facility] Start: 02-26-2022 End: 04-07-2024 Tobacco smoking status SDIS Ex-smoker [facility] Work Phone: Start: 01-16-1980 End: 01-15-2010 History of tobacco use Current smoker [facility] Start: 01-16-1980 End: 01-15-2010 History of tobacco use Cigarette Smoker [facility] End: 05-03-2011 History of tobacco use User of smokeless tobacco [facility] Start: 11-29-2021 End: 11-05-2024 Alcohol intake Current drinker of alcohol (finding) [facility] Start: 09-09-2020 History SDOH Social Connections Phone [phone] [facility] Start: 09-09-2020 History SDOH Social Connections Membership 2 [facility] Start: 09-09-2020 History SDOH Social Connections Meetings 1 [facility] Start: 09-09-2020 History SDOH Physica l Activity DPW 6 [facility] Start: 09-09-2020 History SDOH Physica l Activity MPS 4 [facility] Start: 02-26-2021 History SDOH Financial 5 [facility] Start: 1955 Sex Assigned At Not on file [facility] Start: 11-19-2021 End: 03-29-2022 Exposure to SARS-CoV-2 (event) Not sure [facility] Start: 02-26-2022 End: 04-02-2023 Cigarettes smoked current (pack per day) - Reported 0.5 [facility] Work Phone: Start: 02-26-2022 End: 04-07-2024 Tobacco use and exposure Former smokeless tobacco user [facility] Start: 09-25-2022 Alcohol Comment very rarely [facility] Start: 09-25-2022 End: 04-02-2023 Tobacco use panel [facility] Work Phone: Start: 06-15-2012 Adult Depression Scr eening Assessment 0 [facility] Work Phone: Do you belong to any clubs or organizations such as yazidism groups, unions, fraternal or athletic groups, or school groups? No [facility] Do you feel stress - tense, restless, nervous, or anxious, or unable to sleep at night because your mind is troubled all the time - these days [OSQ] Not at all [facility] Start: 07-05-2023 Tobacco smoking stat us [facility] Unknown if ever smoked [facility] Start: 06-29-2019 Non-smoker [facility] How often to you hav e a drink containing alcohol? Never [facility] Are you now , , , , never or living with a partner? [facility] (I/We) worried jose raul er (my/our) food would run out before (I/we) got money to buy more. Never true [facility] Start: 10-19-2024 End: 11-05-2024 Sex Male (finding) [facility] Medical Equipment Procedure Code Equipment Code Equipment Origin al Text Equipment Identifier Dates BIANKA HERNANDEZ FDA Start: 07-02-2019 BIANKA HERNANDEZ FDA Start: 07-02-2019 MESH,3DMAX RIGHT XL [id number] FDA Start: 07-02-2019 MESH,VENTLEX ST MED 6.4CM FDA Start: 07-02-2019 TACKER,SECURE STRAP FDA Start : 07-02-2019 Test blood sugar (s) 1-2 times daily. Dx: Type 2 DM - Uncontrolled E11.65 Insulin: No [id number], [id number], [id number], [id number] Start: 07-28-2021 End: 04-29-2023 Comment on above: Test blood sugar(s) 1-2 times daily. Dx: Type 2 DM - Uncontrolled E11.65 Insulin: No BIANKA HERNANDEZ FDA Start: 07-02-2019 BIANKA HERNANDEZ FDA Start: 07-02-2019 MESH,3DMAX RIGHT XL [id number] FDA Start: 07-02-2019 MESH,VENTLEX ST MED 6.4CM FDA Start: 07-02-2019 TACKER,SECURE STRAP FDA Start : 07-02-2019 BIANKA HERNANDEZ FDA Start: 07-02-2019 BIANKA HERNANDEZ FDA Start: 07-02-2019 MESH,3DMAX RIGHT XL [id number] FDA Start: 07-02-2019 MESH,VENTLEX ST MED 6.4CM FDA Start: 07-02-2019 TACKER,SECURE STRAP FDA Start : 07-02-2019 BIANKA HERNANDEZ FDA Start: 07-02-2019 BIANKA HERNANDEZ FDA Start: 07-02-2019 MESH,3DMAX RIGHT XL [id number] FDA Start: 07-02-2019 MESH,VENTLEX ST MED 6.4CM FDA Start: 07-02-2019 TACKER,SECURE STRAP FDA Start : 07-02-2019 BIANKA HERNANDEZ FDA Start: 07-02-2019 MARYABILIOPREETI COLEMAN FDA Start: 07-02-2019 MESH,3DMAX RIGHT XL [id number] FDA Start: 07-02-2019 MESH,VENTLEX ST MED 6.4CM FDA Start: 07-02-2019 TACKER,SECURE STRAP FDA Start : 07-02-2019 BIANKA HERNANDEZ FDA Start: 07-02-2019 BIANKA HERNANDEZ FDA Start: 07-02-2019 MESH,3DMAX RIGHT XL [id number] FDA Start: 07-02-2019 MESH,VENTLEX ST MED 6.4CM FDA Start: 07-02-2019 TACKER,SECURE STRAP FDA Start : 07-02-2019 BIANKA HERNANDEZ FDA Start: 07-02-2019 MARYABILIOPREETI COLEMAN FDA Start: 07-02-2019 MESH,3DMAX RIGHT XL [id number] FDA Start: 07-02-2019 MESH,VENTLEX ST MED 6.4CM FDA Start: 07-02-2019 TACKER,SECURE STRAP FDA Start : 07-02-2019 MARYABILIOPREETI COLEMAN FDA Start: 07-02-2019 MARYABILIOPREETI COLEMAN FDA Start: 07-02-2019 MESH,3DMAX RIGHT XL [id number] FDA Start: 07-02-2019 MESH,VENTLEX ST MED 6.4CM FDA Start: 07-02-2019 TACKER,SECURE STRAP FDA Start : 07-02-2019 BIANKA HERNANDEZ FDA Start: 07-02-2019 MARYABILIOPREETI COLEMAN FDA Start: 07-02-2019 MESH,3DMAX RIGHT XL [id number] FDA Start: 07-02-2019 MESH,VENTLEX ST MED 6.4CM FDA Start: 07-02-2019 TACKER,SECURE STRAP FDA Start : 07-02-2019 BIANKA HERNANDEZ FDA Start: 07-02-2019 MARYABILIOPREETI COLEMAN FDA Start: 07-02-2019 MESH,3DMAX RIGHT XL [id number] FDA Start: 07-02-2019 MESH,VENTLEX ST MED 6.4CM FDA Start: 07-02-2019 TACKER,SECURE STRAP FDA Start : 07-02-2019 MARYABILIOPREETI COLEMAN FDA Start: 07-02-2019 MARYABILIOPREETI COLEMAN FDA Start: 07-02-2019 MESH,3DMAX RIGHT XL [id number] FDA Start: 07-02-2019 MESH,VENTLEX ST MED 6.4CM FDA Start: 07-02-2019 TACKER,SECURE STRAP FDA Start : 07-02-2019 BIANKA HERNANDEZ FDA Start: 07-02-2019 BIANKA HERNANDEZ FDA Start: 07-02-2019 MESH,3DMAX RIGHT XL [id number] FDA Start: 07-02-2019 MESH,VENTLEX ST MED 6.4CM FDA Start: 07-02-2019 MERLY MCGEE STRAMaribel FDA Start : 07-02-2019 Goals Date Patient Goal Desired Activity /State Functional Status Date Assessment Result Facility 08-19-2024 Functional status Ambulates;Up ad janna [facility] Work Phone: 05-02-2018 Are you deaf, or do you have serious difficulty hearing No 05/02/2018 12:43 PM EDT James De Anda III, MD No [facility] 05-02-2018 Are you blind, or do you have serious difficulty seeing, even when wearing glasses No 05/02/2018 12:43 PM EDT James De Anda III, MD [facility] 05-02-2018 Do you have serious difficulty walking or climbing stairs No 05/02/2018 12:43 PM EDT James De Anda III, MD [facility] 05-02-2018 Do you have difficul ty dressing or bathing No 05/02/2018 12:43 PM EDT James De Anda III, MD [facility] 05-02-2018 Because of a physica l, mental, or emotional condition, do you have difficulty doing errands alone such as visiting a physician's office or shopping No 05/02/2018 12:43 PM EDT James De Anda III, MD [facility] Mental Status Date Assessment Result Facility 08-19-2024 Cognitive function Voice/Name [facility] Work Phone: 07-11-2023 Cognitive function Voice/Name [facility] Work Phone: 05-02-2018 Because of a physica l, mental, or emotional condition, do you have serious difficulty concentrating, remembering, or making decisions No 05/02/2018 12:43 PM EDT James De Anda III, MD No [facility] Clinical Notes 07-06-2010 to 03-26-2025 Janny Almao, BETHANIE - 03/26/2025 12:59 PM Cynthia Lopez MA - 03/17/2025 9:51 AM Cynthia Lopez MA - 01/25/2025 2:25 PM EDJanny Eduardo LPN - 01/14/2025 1:13 PM EDT Note Date & Type Note Facility 03-26-2025 Note HNO ID: [id number] Author: JANNY ALAMO LPN Service: ? Author Type: Licensed Nurse Type: Progress Notes Filed: 03/26/2025 13:00 Note Text: Scan on 03/26/2025 11:54 AM by Matteo Arevalo PA-C: Consultation - Pulmonary [facility] 03-26-2025 History of Present illness Narrative Scan on 03/26/2025 11:54 AM by Matteo Arevalo PA-C: Consultation - Pulmonary documented in this encounter [facility] 03-17-2025 Note HNO ID: [id number] Author: CYNTHIA AMEZQUITA MA Service: ? Author Type: Hospital Aides And Assistants Teacher Type: Progress Notes Filed: 03/17/2025 09:52 Note Text: DM eye visit. HM updated. Cynthia Amezquita MA Scan on 03/16/2025 3:13 PM by Matteo Arevalo PA-C: DM Eye Exam [facility] 03-17-2025 History of Present illness Narrative DM eye visit. HM updated. Cynthia Amezquita MA Scan on 03/16/2025 3:13 PM by Matteo Arevalo PA-C: DM Eye Exam documented in this encounter [facility] 03-04-2025 Radiology Diagnostic study note [facility] Imaging Services [address] [place], [place] [id number] Chest without Contrast MR#: [id number] Acct: [id number] Name: MARY AGUIAR Rep #: [id number] : 1955 M 69 From: Judah Norris MD PCP: Dr. Rick Sow MD Status: REG CLI Study:Chest without Contrast Date of Exam: 03/03/25 Exam# [id number] Ordering Dr: Rodriguez Bermudez NP SEWING MACHINE TESTER-C PROCEDURE: CHEST WITHOUT CONTRAST 03/03/2025 REASON FOR EXAM: SHORTNESS OF BREATH WITH RESTRICTIVE LUNG DISEASE TECHNIQUE: Chest CT without contrast. Coronal and Sagittal reconstruction series were provided. One or more dose reduction techniques were used (e.g., Automated exposure control, adjustment of the mA and/or kV according to patient size, use of iterative reconstruction technique RADIATION DOSE SUMMARY: CTDlvol: 20.13 mGy DLP: 907.95 mGycm COMPARISON: Prior study dated November 02, 2024. FINDINGS: Hardware: None Lymph nodes: Small benign-appearing mediastinal lymph nodes. Heart and Vasculature: Borderline cardiomegaly. Atherosclerotic calcifications of the thoracic aorta. Thoracic aorta and pulmonary arteries have normal contours; noncontrast technique limits evaluation. Coronary Artery Calcifications: Present Lungs and Airways: Mild residual increased linear markings in the lingular segment of the left upper lobe suggestive of scarring. No new infiltration is seen. Pleura: No pleural effusion. Upper Abdomen: Scattered splenic granulomas. Prior cholecystectomy. Bones: Degenerative changes of the thoracic spine. CT/Chest without Contrast IMPRESSION: Coronary artery calcification (CAC) is is present Mild residual increased markings in the lingular segment of the left upper lobe suggestive of linear scarring. Reading Location: [facility] CC: SEWING MACHINE TESTER-C Юлия Bermudez; Dr. Rick Sow MD ~ Marine Safety Officer: Signed [facility] 02-17-2025 Note HNO ID: [id number] Author: JANNY ALAMO LPN Service: ? Author Type: LICENSED NURSE Type: Progress Notes Filed: 02/17/2025 15:05 Note Text: Scan on 02/17/2025 11:23 AM by Provider, External, PA-C: Consultation - Pulmonary [facility] 01-25-2025 Note HNO ID: [id number] Author: CYNTHIA AMEZQUITA MA Service: ? Author Type: Hospital Aides And Assistants Teacher Type: Progress Notes Filed: 01/25/2025 14:25 Note Text: View External Labs - BMP [ID [id number]] [facility] 01-25-2025 History of Present illness Narrative View External Labs - BMP [ID [id number]] documented in this encounter [facility] 01-14-2025 Note HNO ID: [id number] Author: JANNY ALAMO LPN Service: ? Author Type: LICENSED NURSE Type: Progress Notes Filed: 01/14/2025 13:17 Note Text: Scan on 01/14/2025 12:28 PM by ProviderMatteo PA-C: Consultation - Cardiology [facility] 01-14-2025 History of Present illness Narrative Scan on 01/14/2025 12:28 PM by ProviderMatteo PA-C: Consultation - Cardiology documented in this encounter [facility] 01-14-2025 Evaluation note Diagnosis Onset Date Resolution PVC (premature ventricular contraction) acute January 14, 2025 10:03am Carotid artery disease chronic 2024 10:03am Dyslipidemia chronic January 14 10:03am HTN (hypertension) chronic January 142024 10:03am Nasal congestion acute February 172024 10:30am Restrictive airway disease acute February 17, 2025 10:30am Hypoxia chronic February 17 10:30am Morbid obesity with BMI of 40.0-44.9, adult chronic February 17, 2025 10:30am Sleep apnea chronic February 17, 2 025 10:30am [facility] Work Phone: 1(679) 676-131405-02-2025 Evaluation note* Diagnosis Onset Date Resolution Status Admit Date Abnormal chest CT acute November 11:10am Restrictive airway disease acute November 13, 2024 11:10am Hypoxia chronic November 13, 2024 11:10am Morbid obesity with BMI of 40.0-44.9, adult chronic November 13, 2024 1 1:10am Sleep apnea chronic November 13, 2024 11:10am PVC (premature ventricular contraction) acute January 14, 2025 1 0:03am Carotid artery disease chronic Ju ly 2024 10:03am Dyslipidemia chronic January 14 10:03am HTN (hypertension) chronic January 142024 10:03am [facility] Work Phone: 1(213) 322-171505-02-2025 Evaluation note* Diagnosis Onset Date Resolution Status Admit Date Abnormal chest CT acute November 11:10am Restrictive airway disease acute November 13, 2024 11:10am Hypoxia chronic November 13, 2024 11:10am Morbid obesity with BMI of 40.0-44.9, adult chronic November 13, 2024 1 1:10am Sleep apnea chronic November 13, 2024 11:10am PVC (premature ventricular contraction) acute January 14, 2025 1 0:03am Carotid artery disease chronic Ju ly 2024 10:03am Dyslipidemia chronic January 14 10:03am HTN (hypertension) chronic January 142024 10:03am Restrictive airway disease acute February 17, 2025 10:30am Hypoxia chronic February 17 10:30am Morbid obesity with BMI of 40.0-44.9, adult chronic February 17 10:30am Sleep apnea chronic February 17, 025 10:30am [facility] Work Phone: 1(294) 394-458305-02-2025 Evaluation note* Diagnosis Onset Date Resolution Status Admit Date Abnormal chest CT acute November 11:10am Restrictive airway disease acute November 13, 2024 11:10am Hypoxia chronic November 13, 2024 11:10am Morbid obesity with BMI of 40.0-44.9, adult chronic November 13, 2024 1 1:10am Sleep apnea chronic November 13, 2024 11:10am PVC (premature ventricular contraction) acute January 14, 2025 1 0:03am Carotid artery disease chronic Ju ly 2024 10:03am Dyslipidemia chronic January 14 10:03am HTN (hypertension) chronic January 142024 10:03am Nasal congestion acute February 172024 10:30am Restrictive airway disease acute February 17, 2025 10:30am Hypoxia chronic February 17 10:30am Morbid obesity with BMI of 40.0-44.9, adult chronic February 17 10:30am Sleep apnea chronic February 17 025 10:30am [facility] Work Phone: 1(640) 254-885104-24-2025 NoteHNO ID: [id number] Author: FARZANA KELLY PA-C Service: ? Author Type: Physician Traveling Auditor Type: Progress Notes Filed: 11/05/2024 10:18 Note Text: Chief Complaint Patient presents with: Rash HPI Mary Aguiar is a 68 year old male who presents here today for itching. Pruritus and Rash: - Onset a few days ago, with improvement today. - Described as little welts that come and go, appearing on the back, legs, and other areas. - No new soaps or lotions used; all products are unscented. - Onset occurred saturday - Treated with topical cortisone and anti-itch cream with some relief. - Denies taking any new medications recently. - only thing out of normal routine was a PFT on Saturday. Past medical history, appointments, medications, allergies reviewed. [...] External hemorrhoids without mention of complication 03/08/2005 Family history of pancreatic cancer 04/02/2023 sister Foot callus 04/02/2023 Generalized osteoarthrosis, unspecified site 03/08/2005 History of colonic polyps 10/13/2007 Hyperlipidemia, mixed 07/14/2010 Internal hemorrhoids without mention of complication 03/08/2005 Morbid obesity with BMI of 40.0-44.9, adult ([facility]) 07/06/2010 Palpitations 11/29/2021 Has had for [...] FLX DX W/COLLJ SPEC WHEN PFRMD 06/13/2018 [facility] Ceb[facility]--Repeat 5 years COLSC FLX W/RMVL OF TUMOR POLYP LESION SNARE TQ 04-23-13 DEBRIDEMENT SUBCUTANEOUS TISSUE 20 SQ CM/< Left 06/27/15 Debridement UIQ left breast infected glenny cyst ENDOVENOUS LASER, 1ST VEIN 11/16/2014 [facility] - see scanned documents ENDOVENOUS LASER, 1ST VEIN 06/05/2015 [facility] - right great saphenous vein NEUROPLASTY AND/TRANSPOS MEDIAN NRV CARPAL TUNNE Carpal tunnel decomp, right STRESS TEST EXERCISE 09/21/2013 Exercise Myocardial Perfusion Stress test TONSILLECTOMY HX under age 12 Family History FAMILY HISTORY Problem Relation Age of Onset Heart Mother CHF, DM Diabetes Mother Cancer Father lung Hypertension Sister Pancreatic Cancer Sister Hypertension Brother COPD Brother Patient Allergies ALLERGIES Allergen Reactions Actos [Pioglitazone] Shortness of Breath Farxiga [Dapagliflo* Other: See Comments tachycardi and felt poorly on it. Lisinopril Cough Current Medications Current Outpatient Medications on File Prior to Visit Medication Sig potassium chloride 20 mEq TbER Take 1 tablet by mouth once daily. atorvastatin (LIPITOR) 20 mg tablet Take 1 tablet by mouth once daily. For cholesterol. furosemide (LASIX) 40 mg tablet Take 1 tablet by mouth once daily. glimepiride (AMARYL) 4 mg tablet Take 1 tab twice a day. losartan (COZAAR) 50 mg tablet Take 2 tablets by mouth once daily. metFORMIN (GLUCOPHAGE) 1,000 mg tablet Take 1 tablet by mouth two times a day with meals. amLODIPine (NORVASC) 10 mg tablet Take 0.5 tablets by mouth once daily. cyclobenzaprine (FLEXERIL) 10 mg tablet Take 1 tablet by mouth three times a day as needed for muscle spasm. blood sugar diagnostic (BLOOD GLUCOSE TEST) test strip Test blood sugar(s) 1-2 times daily. Dx: Type 2 DM - Uncontrolled E11.65 Insulin: No Lancets lancets Test blood sugar(s) 1-2 times daily. Dx: Type 2 DM - Uncontrolled E11.65 Insulin: No Aspirin 81 mg tab Take 1 tablet by mouth once daily. Take with food. Meridian-3 Fatty Acids-Vitamin E (FISH OIL) 1,000 mg cap Take 1 capsule by mouth once daily. MULTI-VITAMIN ORAL Take by mouth. No current facility-administered medications on file prior to visit. Social History Social History Tobacco Use Smoking status: Former Current packs/day: 0.00 Average packs/day: 0.5 packs/day for 30.0 years (15.0 ttl pk-yrs) Types: Cigarettes Start date: 01/16/1980 Quit d (more content not included)...[facility]04-23-2025 Note HNO ID: [id number] Author: JANNY ALAMO LPN Service: ? Author Type: LICENSED NURSE Type: Progress Notes Filed: 11/04/2024 08:20 Note Text: Scan on 11/02/2024 1:47 PM by ProviderMatteo PA-C: [facility] History of Present illness Narrative* Janny Alamo LPN - 11/04/2024 8:19 AM EDT Scan on 11/02/2024 1:47 PM by ProviderMatteo PA-C: CT [facility] Telephone encounter Note * Telephone Encounter - Red Guerin MA - 11/04/2024 8:08 AM EDT Patient contacted and scheduled. Offered appointment today with another SEWING MACHINE TESTER. Patient declined scheduled tomorrow with Farzana. Red Guerin MA [facility]04-23-2025 Miscellaneous Notes* Telephone Encounter - Red Guerin MA - 11/04/2024 8:08 AM EDT Patient contacted and scheduled. Offered appointment today with another SEWING MACHINE TESTER. Patient declined scheduled tomorrow with Farzana. Red Guerin MA documented [facility] Radiology Diagnostic study note [facility] Imaging Services [address] [place] [address] Chest without Contrast MR#: [id number] Acct: [id number] Name: MARY AGUIAR Rep #: [id number] : 1955 M 68 From: Judah Norris MD PCP: Dr. Rick Sow MD Status: REG CLI Study:Chest without Contrast Date of Exam: 11/02/24 Exam# [id number] Ordering Dr: Rodriguez Bermudez SEWING MACHINE TESTER SEWING MACHINE TESTER-C PROCEDURE: CHEST WITHOUT CONTRAST 11/02/2024 REASON FOR EXAM: GROUNDGLASS PNEUMONIA TECHNIQUE: Chest CT without contrast. Coronal and Sagittal reconstruction series were provided. One or more dose reduction techniques were used (e.g., Automated exposure control, adjustment of the mA and/or kV according to patient size, use of iterative reconstruction technique RADIATION DOSE SUMMARY: CTDlvol: 20.15 mGy DLP: 775.38 mGycm COMPARISON: Comparison is made with prior study dated August 15, 2024. FINDINGS: Hardware: None Lymph nodes: Subcentimeter scattered mediastinal lymph nodes. Heart and Vasculature: Atherosclerotic calcifications of the thoracic aorta. Thoracic aorta and pulmonary arteries have normal contours; noncontrast technique limits evaluation. Coronary Artery Calcifications: Present Lungs and Airways: Since prior study, there has been improved aeration in the scattered ground-glass appearance infiltrates in the left lung. Mild degree of residual changes seen in the posterior aspect of the left upper lobe abutting the left major fissure. The previously seen infiltrates in the left lower lobe have resolved. Pleura: Unremarkable Upper Abdomen: Status post cholecystectomy. Scattered calcified granulomas. Bones: Degenerative changes of the thoracic spine. CT/Chest without Contrast IMPRESSION: Coronary artery calcification (CAC) is is present Interval improvement in the aeration in the left hemithorax with residual atelectasis and/or infiltrate in the posterior aspect of the left upper lobe. Reading Location: [place] [address] CC: SEWING MACHINE TESTER-C Юлия Bermudez; Dr. Rick Sow MD ~ Marine Safety Officer: Signed [facility]04-17-2025 Procedure notey [facility] Pulmonary Services/Neurology [address] [place] [address] MR#: [id number] Acct: [id number] Name: MARY AGUIAR Rep #:[id number] : 1955 68 From: Edd Perez DO Referring Dr: Юлия Bermudez NP SEWING MACHINE TESTER-C Status: REG CLI Location: PSN Date: Sex: M C PSN 6 Minute Walk Test 6 Minute Walk Test 6 Minute Walk Test: 6 Minute Walk Test PSN:6-Minute Walk Test Start: 10/28/24 13:23 Freq: Status: Active Protocol: RESP.6MINW Document 10/28/24 12:38 WLB (Rec: 10/28/24 13:31 WLB [id number]) 6 Minute Walk Test Date Performed 10/28/24 Time Performed 12:38 Height 7 ft 1 in Weight: 320 lb Weight in Pounds 320.[address]: LARA Assistive device None used: Pre-test Oxygen Delivery Room Air Method Pulse Ox (%) 92 Pulse Rate (60-100 79 beats/min) Dyspnea Disha Scale ( 2 0-10) Exertion Disha Scale 6 (6-20) 1st minute Oxygen Delivery Room Air Method Pulse Ox (%) 92 Pulse Rate (60-100 79 beats/min) 2nd minute Oxygen Delivery Room Air Method Pulse Ox (%) 91 Pulse Rate (60-100 84 beats/min) 3rd minute Oxygen Delivery Room Air Method Pulse Ox (%) 89 Pulse Rate (60-100 93 beats/min) Reported Symptoms Increased Work of Breathing 4th minute Oxygen Delivery Room Air Method Pulse Ox (%) 88 Pulse Rate (60-100 93 beats/min) Reported Symptoms Increased Work of Breathing 5th minute Oxygen Flow Rate (L/ 2 min) (L/min) Oxygen Delivery Nasal Cannula Method Pulse Ox (%) 90 Pulse Rate (60-100 103 H beats/min) Reported Symptoms Increased Work of Breathing 6th minute Oxygen Flow Rate (L/ 2 min) (L/min) Oxygen Delivery Nasal Cannula Method Pulse Ox (%) 91 Pulse Rate (60-100 84 beats/min) Reported Symptoms Increased Work of Breathing Post-test Oxygen Delivery Room Air Method Pulse Ox (%) 92 Pulse Rate (60-100 79 beats/min) Dyspnea Disha Scale ( 2 0-10) Exertion Disha Scale 6 (6-20) Full Laps Walked 15 Partial Lap, Number 0 of Tiles Walked Total Distance 885 Walked (ft) 10/28/24 12:38 (created 10/28/24 13:28) Cardiopulmonary Services by Prema Barrett Pt was put on his 2lpm pulse dose oxygen machine @4minutes. Pt wears 2lpm pulse dose at rest and 3lpm pulse dose with exercise. Initialized on 10/28/24 13:28 - END OF NOTE Interpretation Interpretation: The patient ambulated 885 feet over the course of 6 minutes beginning on room air without assistivedevices. Pretesting oxygen saturation was noted to be 92%on room air. With ambulation, the guzman oxygen saturation was 88%. 2 L/min of supplemental oxygen was applied, and the patient was able to complete the remainder of the test while maintaining appropriate saturations. Recommendations Recommendations: 2 L/min of supplemental oxygen should be utilized with exertion. 10/29/24 1236 O> Date _ Edd Perez DO CC: ~ Date Dictated: 10/29/24 1236 Date Transcribed: 10/29/24 1236 Marine Safety Officer: Dr. Edd Perez DO Signed [facility]04-09-2025 NoteHNO ID: [id number] Author: RED GUERIN MA Service: ? Author Type: Hospital Aides And Assistants Teacher Type: Progress Notes Filed: 10/21/2024 16:48 Note Text: Scan on 10/19/2024 9:27 AM by ProviderMatteo PA-C: Stress Test Rde Guerin [facility] History of Present illness Narrative* Red Guerin MA - 10/21/2024 4:48 PM EDT Scan on 10/19/2024 9:27 AM by ProviderMatteo PA-C: Stress Test Red Guerin MA' documented [facility] Telephone encounter Note * Telephone Encounter - Godfrey Mackay MD - 10/13/2024 2:16 PM EDT Patient should contact stress lab about holding medication prior to test. [facility] Work Phone: 1(831) 540-740004-01-2025 Miscellaneous Notes* Telephone Encounter - Godfrey Mackay MD - 10/13/2024 2:16 PM EDT Patient should contact stress lab about holding medication prior to test. documented in [facility] encounter[facility] Telephone encounter Note * Telephone Encounter - Leonora Cueva LPN - 10/09/2024 11:03 AM EDT Prescription Refill Information The patient has been identified by name and date of : Yes Caregiver verified no other encounters exist for this prescription request: Yes Caregiver confirmed with patient/requestor that no other refills are due, in the near future, with this provider at this time: Yes The last office visit in the department: 10/05/24 Does the patient have a future office visit with this provider/department: Yes 04/08/25 Patient comment: Can I have a 90 day supply. The social work instructor has not given me my next appointment yet. They were not scheduling out that far. Thank you! Requested Prescriptions Pending Prescriptions Disp Refills potassium chloride 20 mEq TbER 90 tablet 2 Sig: Take 1 tablet by mouth once daily. Leonora Cueva LPN October 09, 2024 11:03 AM [facility]03-28-2025 Miscellaneous Notes* Telephone Encounter - Leonora Cueva LPN - 10/09/2024 11:03 AM EDT Prescription Refill Information The patient has been identified by name and date of : Yes Caregiver verified no other encounters exist for this prescription request: Yes Caregiver confirmed with patient/requestor that no other refills are due, in the near future, with this provider at this time: Yes The last office visit in the department: 10/05/24 Does the patient have a future office visit with this provider/department: Yes 04/08/25 Patient comment: Can I have a 90 day supply. The social work instructor has not given me my next appointment yet. They were not scheduling out that far. Thank you! Requested Prescriptions Pending Prescriptions Disp Refills potassium chloride 20 mEq TbER 90 tablet 2 Sig: Take 1 tablet by mouth once daily. Leonora Cueva LPN October 09, 2024 11:03 AM documented in this encounterTr[facility]03-[facility]-2025 NoteHNO ID: [id number] Author: FARZANA KELLY PA-C Service: ? Author Type: Physician Traveling Auditor Type: Progress Notes Filed: 10/05/2024 12:57 Note Text: Chief Complaint Patient presents with: 6 Month Exam HPI Mary Aguiar is a 68 year old male who presents here today for Chronic Medical Conditions.. Patient with hx of HTN, DM2, hyperlipidemia, former smoker, obesity, CATHERINE, rosacea, OA, nenita insufficiency, and those as below. Pneumonia: - Recent hospitalization for pneumonia. - Reports improvement in symptoms; able to breathe well. - Follow-up with senior sales assistant; recommended nocturnal oxygen monitoring. - Denies current dyspnea. Cardiac Evaluation: - Recent cardiology consultation; social work instructor attributed cardiac symptoms to pneumonia. - Nuclear stress test ordered; not yet scheduled. - Advised to continue Lasix until next cardiology appointment in 3 months. - Denies current peripheral edema. Diabetes Mellitus: - Recent A1c increased to 7.1 from 6.6 in March. - Recent steroid use during hospitalization. - Monitors blood glucose levels regularly; readings mostly in the 120s-130s. - Denies current changes in diet or medication regimen. Hypertension: - Takes antihypertensive medication in the morning. - Home blood pressure readings mostly in the 120s-130s/70s. - Denies current headaches or dizziness. Past medical history, appointments, medications, allergies reviewed. Previous Medical History PAST MEDICAL HISTORY Diagnosis Date Advance directive discussed with patient 03/28/2022 Discussed 03/2022 Benign prostatic hyperplasia with urinary frequency 03/28/2022 Carpal tunnel syndrome, left 04/12/2017 Cervicalgia 06/26/2017 Diabetic eye exam ([facility]) 03/29/2022 Last done 01/11/22 Dr Rafiq Avendano Diverticulosis of large intestine 05/2018 ED (erectile dysfunction) of organic origin 03/28/2022 Esophageal reflux 03/08/2005 Essential hypertension, benign 09/01/2007 Ex-smoker 03/11/2021 Started age 16 up to 1.5-1 PPD quit at age 54 External hemorrhoids without mention of complication 03/08/2005 Family history of pancreatic cancer 04/02/2023 sister Foot callus 04/02/2023 Generalized osteoarthrosis, unspecified site 03/08/2005 History of colonic polyps 10/13/2007 Hyperlipidemia, mixed 07/14/2010 Internal hemorrhoids without mention of complication 03/08/2005 Morbid obesity with BMI of 40.0-44.9, adult ([facility]) 07/06/2010 Palpitations 11/29/2021 Has had for many years Personal history of colonic polyps 2018 Plantar fasciitis 05/02/2018 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) ([facility]) 05/15/2021 Rosacea 03/11/2021 Sleep apnea 09/01/2007 Not using CPAP Stasis dermatitis 07/07/2011 Type 2 diabetes mellitus without complication, without long-term current use of insulin ([facility]) 02/11/2016 Uncontrolled type 2 diabetes mellitus with hyperglycemia ([facility]) 07/28/2021 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 Venous (peripheral) insufficiency 03/08/2005 Previous Surgical History PAST SURGICAL HISTORY Procedure Laterality Date CHOLECYSTECTOMY 2002 Cholecystectomy COLONOSCOPY FLX DX W/COLLJ SPEC WHEN PFRMD 11-21-07 COLONOSCOPY FLX DX W/COLLJ SPEC WHEN PFRMD 06/13/2018 [facility]-Michael De Anda--Repeat 5 years COLSC FLX W/RMVL OF TUMOR POLYP LESION SNARE TQ 04-23-13 DEBRIDEMENT SUBCUTANEOUS TISSUE 20 SQ CM/< Left 06/27/15 Debridement UIQ left breast infected glenny cyst ENDOVENOUS LASER, 1ST VEIN 11/16/2014 [facility] - see scanned documents ENDOVENOUS LASER, 1ST VEIN 06/05/2015 [facility] - right great saphenous vein NEUROPLASTY AND/TRANSPOS MEDIAN NRV CARPAL TUNNE Carpal tunnel decomp, right STRESS TEST EXERCISE 09/21/2013 Exercise Myocardial Perfusion Stress test TONSILLECTOMY HX under age 10 Family History FAMILY HISTORY Problem Relation Age of Onset Heart Mother CHF, DM Diabetes Mother Cancer Father lung Hypertension Sister Pancreatic Cancer Sister Hypertension Brother COPD Brother Patient Allergies ALLERGIES Allergen Reactions Actos [Pioglitazone] Shortness of Breath Farxiga [Dapagliflo* Other: See Comments tachycardi and felt poorly on it. Lisinopril Cough Current Medications Current Outpatient Medications on File Prior to Visit Medication Sig potassium chloride 20 mEq TbER Take 1 tablet by mouth once daily. furosemide (LASIX) 40 mg tablet Take 1 tablet by mouth once daily. amLODIPine (NORVASC) 10 mg tablet Take 0.5 tablets by mouth once daily. cyclobenzaprine (FLEXERIL) 10 mg tablet Take 1 tablet by mouth three times a day as needed for muscle spasm. atorvastatin (LIPITOR) 20 mg tablet Take 1 tablet by mouth once daily. For cholesterol. glimepiride (AMARYL) 4 mg tablet Take 1 tab twice a day. losartan (COZAAR) 50 mg tablet Take 2 tablets by mouth once daily. metFORMIN (GLUCOPHAGE) 1,000 mg tablet Take 1 tablet by mouth two times a day with meals. blood sugar diagnostic (BLOOD GLUCOSE TEST) test strip Test blood sugar(s) (more content not included)...[facility]03-24-2025 History of Present illness Narrative* Farzana Kelly PA-C - 10/05/2024 11:58 AM EDT Chief Complaint Patient presents with: 6 Month Exam HPI Mary Aguiar is a 68 year old male who presents here today for Chronic Medical Conditions.. Patient with hx of HTN, DM2, hyperlipidemia, former smoker, obesity, CATHERINE, rosacea, OA, nenita insufficiency, and those as below. Pneumonia: - Recent hospitalization for pneumonia. - Reports improvement in symptoms; able to breathe well. - Follow-up with senior sales assistant; recommended nocturnal oxygen monitoring. - Denies current dyspnea. Cardiac Evaluation: - Recent cardiology consultation; social work instructor attributed cardiac symptoms to pneumonia. - Nuclear stress test ordered; not yet scheduled. - Advised to continue Lasix until next cardiology appointment in 3 months. - Denies current peripheral edema. Diabetes Mellitus: - Recent A1c increased to 7.1 from 6.6 in March. - Recent steroid use during hospitalization. - Monitors blood glucose levels regularly; readings mostly in the 120s-130s. - Denies current changes in diet or medication regimen. Hypertension: - Takes antihypertensive medication in the morning. - Home blood pressure readings mostly in the 120s-130s/70s. - Denies current headaches or dizziness. Past medical history, appointments, medications, allergies reviewed. [...] External hemorrhoids without mention of complication 03/08/2005 Family history of pancreatic cancer 04/02/2023 sister Foot callus 04/02/2023 Generalized osteoarthrosis, unspecified site 03/08/2005 History of colonic polyps 10/13/2007 Hyperlipidemia, mixed 07/14/2010 Internal hemorrhoids without mention of complication 03/08/2005 Morbid obesity with BMI of 40.0-44.9, adult (HCC) 07/06/2010 Palpitations 11/29/2021 Has had for many years Personal history of colonic polyps 2018 Plantar fasciitis 05/02/2018 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) ([facility]) 05/15/2021 Rosacea 03/11/2021 Sleep apnea 09/01/2007 Not using CPAP Stasis dermatitis 07/07/2011 Type 2 diabetes mellitus without complication, without long-term current use of insulin ([facility]) 02/11/2016 Uncontrolled type 2 diabetes mellitus with hyperglycemia ([facility]) 07/28/2021 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 Venous (peripheral) insufficiency 03/08/2005 Previous Surgical History PAST SURGICAL HISTORY Procedure Laterality Date CHOLECYSTECTOMY 2002 Cholecystectomy COLONOSCOPY FLX DX W/COLLJ SPEC WHEN PFRMD 11-21-07 COLONOSCOPY FLX DX W/COLLJ SPEC WHEN PFRMD 06/13/2018 [facility]--Repeat 5 years COLSC FLX W/RMVL OF TUMOR POLYP LESION SNARE TQ 04-23-13 DEBRIDEMENT SUBCUTANEOUS TISSUE 20 SQ CM/< Left 06/27/15 Debridement UIQ left breast infected glenny cyst ENDOVENOUS LASER, 1ST VEIN 11/16/2014 [facility] - see scanned documents ENDOVENOUS LASER, 1ST VEIN 06/05/2015 [facility] - right great saphenous vein NEUROPLASTY &/TRANSPOS MEDIAN NRV CARPAL TUNNE Carpal tunnel decomp, right STRESS TEST EXERCISE 09/21/2013 Exercise Myocardial Perfusion Stress test TONSILLECTOMY HX under age 10 Family History FAMILY HISTORY Problem Relation Age of Onset Heart Mother CHF, DM Diabetes Mother Cancer Father lung Hypertension Sister Pancreatic Cancer Sister Hypertension Brother COPD Brother Patient Allergies ALLERGIES Allergen Reactions Actos [Pioglitazone] Shortness of Breath Farxiga [Dapagliflo* Other: See Comments tachycardi and felt poorly on it. Lisinopril Cough Current Medications Current Outpatient Medications on File Prior to Visit Medication Sig potassium chloride 20 mEq TbER Take 1 tablet by mouth once daily. furosemide (LASIX) 40 mg tablet Take 1 tablet by mouth once daily. amLODIPine (NORVASC) 10 mg tablet Take 0.5 tablets by mouth once daily. cyclobenzaprine (FLEXERIL) 10 mg tablet Take 1 tablet by mouth three times a day as needed for muscle spasm. atorvastatin (LIPITOR) 20 mg tablet Take 1 tablet by mouth once daily. For cholesterol. glimepiride (AMARYL) 4 mg tablet Take 1 tab twice a day. losartan (COZAAR) 50 mg tablet Take 2 tablets by mouth once daily. metFORMIN (GLUCOPHAGE) 1,000 mg tablet Take 1 tablet by mouth two times a day with meals. blood sugar diagnostic (BLOOD GLUCOSE TEST) test strip Test blood sugar(s) 1-2 times daily. Dx: Type 2 DM - Uncontrolled E11.65 Insulin: No Lancets lancets Test blood sugar(s) 1-2 times daily. Dx: Type 2 DM - Uncontrolled E11.65 Insulin: No Aspirin 81 mg tab Take 1 tablet by mouth once daily. Take with food. Meridian-3 Fatty Acids-Vitamin E (FISH OIL) 1,000 mg cap Take 1 capsule by mouth once daily. MULTI-VITAMIN ORAL Take by mouth. No current facility-administered medications on file prior to visit. Social History Social History Tobacco Use Smoking status: Former Current packs/day: 0.00 Average packs/day: 0.5 packs/day for 30.0 years (15.0 ttl pk-yrs) Types: Cigarettes Start date: 01/16/1980 Quit date: 01/15/2010 Years since quittin.7 Smokeless tobacco: Former Quit date: 05/03/2011 Vaping Use Vaping status: Never Used Substance Use Topics Alcohol use: Yes Comment: [...] of headaches, syncope, paralysis, seizures or tremors SEE HPI EXAM: BP 118/82 (BP Site: Left Arm, BP Position: Sitting, BP Cuff Size: Large Adult) Pulse 86 Temp 36.7 C (98 F) Resp 18 Wt (!) 147.9 kg (326 lb) SpO2 95% BMI 44.21 kg/m General Appearance: Well appearing, alert, in no acute distress, well-hydrated, well nourished.. Neck: Supple, no adenopathy; thyroid symmetric, normal size, no bruits. Lungs: Lungs clear to auscultation. No wheezing, rhonchi, rales.. Heart: RRR without murmur, gallop, or rubs. No ectopy. Extremities: No deformities, skin discoloration, clubbing or cyanosis. Good capillary refill. , Edema: 1+ b/l. Peripheral Pulses: Normal. Health Maintenance List BP Controlled (<130/80) due on 04/02/2024 Advance Directive Discussion due on 07/15/2024 DTaP,Tdap,Td Vaccine(1 - Tdap) due on 04/07/2025 RSV Vaccine(1 - Risk 60-74 years 1-dose series) due on 04/07/2025 Shingrix Vaccine(1 of 2) due on 04/07/2025 Covid-19 Vaccine( season) due on 11/09/2024 Dilated Retinal Exam due on 01/13/2025 HbA1C due on 03/03/2025 Diabetic Foot Exam due on 04/07/2025 Depression Screening due on 04/07/2025 Anxiety Screening due on 04/07/2025 Urine Albumin:Creatinine Ratio due on 09/03/2025 LDL Cholesterol due on 09/03/2025 Annual PCP Team Chronic Disease Visit due on 10/05/2025 Colorectal Cancer Screening due on 07/11/2028 Abdominal Aortic Aneurysm Screening Completed Influenza Vaccine Completed Pneumococcal Vaccine: 50+ Completed Hepatitis C Screening Discontinued Data reviewed Latest Ref Rng 09/03/2024 Glucose 74 - 99 mg/dL 142 (H) BUN 9 - 24 mg/dL 10 Creatinine 0.73 - 1.22 mg/dL 0.94 Sodium 136 - 144 mmol/L 139 Potassium 3.7 - 5.1 mmol/L 4.3 Chloride 98 - 107 mmol/L 100 CO2 22 - 30 mmol/L 28 Anion Gap 8 - 15 mmol/L 11 Calcium 8.5 - 10.2 mg/dL 9.2 eGFR >=60 mL/min/1.73m 87 Total Cholesterol, Nonfasting <200 mg/dL 119 Triglycerides, Nonfasting <150 mg/dL 187 (H) HDL Cholesterol, Nonfasting >39 mg/dL 39 (L) LDL Cholesterol, Nonfasting <100 mg/dL 43 Non HDL Cholesterol, Nonfasting <130 mg/dL 80 VLDL Cholesterol, Nonfasting <30 mg/dL 37 (H) Total Chol/HDL Ratio, Nonfasting <5.10 mg/dL 3.05 LDL/HDL Ratio, Nonfasting <2.54 mg/dL 1.10 Creatinine, Ur Random (UCRR) 20.0 - 300.0 mg/dL 79.2 Albumin, Urine Random mg/L <12.0 Albumin/Creat Ratio <30 mg/g <15 Hemoglobin A1C 4.3 - 5.6 % 7.1 (H) Estimated Average Glucose mg/dL 157 Legend: (H) High (L) Low Assessment and Plan 1. Type 2 diabetes mellitus without complication, without long-term current use of insulin ([facility]) (E11.9) 2. Uncontrolled type 2 diabetes mellitus with hyperglycemia ([facility]) (E11.65) - Recent A1c increased to 7.1% from 6.6% in March - Recent hospitalization and steroid use likely contributed to hyperglycemia. - Reviewed home glucose readings; generally within target range. - Continue current diabetes management regimen. - Recheck A1c and glucose levels at next visit. - Advised patient to report any upward trends in glucose readings before the next visit. 3. Essential hypertension, benign (I10) - Blood pressure readings stable, generally in the 120s-130s/70s-80s mmHg. - Continue current antihypertensive therapy. - Monitor blood pressure at home. 4. Hyperlipidemia, mixed (E78.2) - Recent labs show stable cholesterol levels; triglycerides slightly elevated at 187 mg/dL (goal <150 mg/dL). - Continue current lipid-lowering therapy. - Emphasized importance of dietary modifications and increasing physical activity as tolerated. - Recheck lipid panel in 6 months. 5. 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) - Recent urine analysis normal. - Continue monitoring renal function and proteinuria. 6. Prostate disorder (N42.9) check PSA with next labs 7. Benign prostatic hyperplasia with urinary frequency (N40.1) - Nocturia reported, up to three times per night. - Continue current management. - Monitor urinary symptoms. 8. Morbid obesity with BMI of 40.0-44.9, adult ([facility]) (E66.01) - Encouraged gradual increase in physical activity as tolerated. - Discussed benefits of weight reduction on overall health. 9. Bilateral carotid artery stenosis (I65.23) asymptomatic - No immediate intervention required; continue monitoring. Farzana Kelly PA-C The patient consented to the use of [employer] software for draft documentation of the visit consistent with [facility] s Notice of Privacy Practices. documented in this encounterTr[facility]03-[facility] Evaluation note* Diagnosis Onset Date Resolution Status Admit Date Abnormal chest CT acute September 122024 2:12pm Shortness of breath acute September 23, 2024 2:12pm Hypoxia chronic September 23 2:12pm Morbid obesity with BMI of 40.0-44.9, adult chronic September 23 2:12pm Sleep apnea chronic September 23 2:12pm Carotid artery disease chronic [facility] 2024 10:54am Diabetes mellitus chronic September 122024 10:54am Dyslipidemia chronic September 24, 2024 10:54am Dyspnea on exertion chronic September 24, 2024 10:54am HTN (hypertension) chronic September 24, 2024 10:54am Hypoxia chronic September 24 10:54am Morbid obesity chronic September 10:54am Sleep apnea chronic September 24 10:54am Abnormal chest CT acute November 11:10am Restrictive airway disease acute November 13, 2024 11:10am Hypoxia chronic November 13, 2024 11:10am Morbid obesity with BMI of 40.0-44.9, adult chronic November 13, 2024 1 1:10am Sleep apnea chronic November 13, 2024 11:10am PVC (premature ventricular contraction) acute January 14, 2025 1 0:03am Carotid artery disease chronic 2024 10:03am Diabetes mellitus chronic January 10:03am Dyslipidemia chronic January 14 10:03am HTN (hypertension) chronic January 142024 10:03am Hypoxia chronic January 14, 2025 10:03am Morbid obesity chronic January 14, 2025 10:03am Sleep apnea chronic January 14 10:03am [facility] Work Phone: [phone] Telephone encounter Note* Telephone Encounter - Janny Alamo LPN - 09/16/2024 7:24 AM EST Please see message from pt. Pt saw you for hospital f/u 09/24/24. Janny Alamo LPN [facility]03-05-2025 Miscellaneous Notes* Telephone Encounter - Janny Alamo LPN - 09/16/2024 7:24 AM EST Please see message from pt. Pt saw you for hospital f/u 09/24/24. Janny Alamo LPN documented in this encounterTr[facility]02-24[facility]25 NoteHNO ID: [id number] Author: TARIK KLEIN RN Service: ? Author Type: Registered Nurse Type: Progress Notes Filed: 09/07/2024 14:20 Note Text: Transitional Care Management (TCM) Follow-Up Note PCP Update / Actionable Items N/A - No specialty updates needed Patient Source: [id number] ([facility]) Discharge Outreach Summary: Spoke with patient, doing well at home. Has noticed lasix has been causing some dizziness. Seems to be positional when standing up , or bending over. Has not checked BP when these episodes occur. Recommended checking BP to see if BP is dropping during these episodes. Also encouraged proper hydration. Contact: Contact made with patient: Yes Spoke to: Patient Validation: Validated the person spoken to is actively involved in the patient's care. The patient was identified by Name and Date of . I'd like to get an update on how you're doing since our last phone call. Is now a good time to talk? Yes Symptoms: Are you feeling about the same, better or worse since leaving the hospital? Better Weekly Outreach: 1st Outreach Medications: Do you have any questions about taking your medications, including which medications you should be on, or do you need refills on your medications? No Patient Questions / Concerns: Do you have any questions related to your discharge? No Appointment / TCM Follow-Up: Have you had a follow-up visit with your Primary Care Provider or Specialist since you were discharged? Yes Do you need any assistance with scheduling or changing your follow-up appointments? Patient already has an appointment scheduled EDUCATION: Is Patient aware of blood pressure target: Yes Tarik Klein RN September 07, 2024 2:19 [facility]02-24-2025 History of Present illness Narrative* Tarik Klein RN - 09/07/2024 2:15 PM EST Transitional Care Management (TCM) Follow-Up Note PCP Update / Actionable Items N/A - No specialty updates needed Patient Source: Hdx-ay-Spznuti ([facility]) Discharge Outreach Summary: Spoke with patient, doing well at home. Has noticed lasix has been causing some dizziness. Seems to be positional when standing up , or bending over. Has not checked BP when these episodes occur. Recommended checking BP to see if BP is dropping during these episodes. Also encouraged proper hydration. Contact: Contact made with patient: Yes Spoke to: Patient Validation: Validated the person spoken to is actively involved in the patient's care. The patient was identified by Name and Date of . I'd like to get an update on how you're doing since our last phone call. Is now a good time to talk? Yes Symptoms: Are you feeling about the same, better or worse since leaving the hospital? Better Weekly Outreach: 1st Outreach Medications: Do you have any questions about taking your medications, including which medications you should be on, or do you need refills on your medications? No Patient Questions / Concerns: Do you have any questions related to your discharge? No Appointment / TCM Follow-Up: Have you had a follow-up visit with your Primary Care Provider or Specialist since you were discharged? Yes Do you need any assistance with scheduling or changing your follow-up appointments? Patient alreadyhas an appointment scheduled EDUCATION: Is Patient aware of blood pressure target: Yes Tarik Klein RN September 07, 2024 2:19 PM documented in this encounterTr[facility]02-[facility]25 NotePatient Outreach ([facility]) MARY AGUIAR ([id number]) 1955 M Date Time Provider Department [facility]07[facility] [place] During your visit today, we recorded the following information about you: Tarik Klein RN 09/07/2024 2:20 PM Signed Transitional Care Management (TCM) Follow-Up Note PCP Update / Actionable Items N/A - No specialty updates needed Patient Source: [id number] ([facility]) Discharge Outreach Summary: Spoke with patient, doing well at home. Has noticed lasix has been causing some dizziness. Seems to be positional when standing up , or bending over. Has not checked BP when these episodes occur. Recommended checking BP to see if BP is dropping during these episodes. Also encouraged proper hydration. Contact: Contact made with patient: Yes Spoke to: Patient Validation: Validated the person spoken to is actively involved in the patient's care. The patient was identified by Name and Date of . I'd like to get an update on how you're doing since our last phone call. Is now a good time to talk? Yes Symptoms: Are you feeling about the same, better or worse since leaving the hospital? Better Weekly Outreach: 1st Outreach Medications: Do you have any questions about taking your medications, including which medications you should be on, or do you need refills on your medications? No Patient Questions / Concerns: Do you have any questions related to your discharge? No Appointment / TCM Follow-Up: Have you had a follow-up visit with your Primary Care Provider or Specialist since you were discharged? Yes Do you need any assistance with scheduling or changing your follow-up appointments? Patient already has an appointment scheduled EDUCATION: Is Patient aware of blood pressure target: Yes Tarik Klein RN September 07, 2024 2:19 PM Allergies As of Date: 09/07/2024 Noted Allergy Reaction ACTOS (PIOGLITAZONE) 07/06/2024 12 - Shortness of Breath FARXIGA (DAPAGLIFLOZIN) 05/16/2023 14 - Other: See Comments Comments: tachycardi and felt poorly on it. LISINOPRIL 10/30/2007 3 - Cough Date Reviewed: 08/27/2024 Reviewed by: Janny Alamo LPN - Fully Assessed Reason for Visit: Transition Of Care [4074] Cmt: Follow up day 19 Prescriptions as of 09/07/2024 - furosemide (LASIX) 40 mg tablet Take 1 tablet by mouth once daily. - amLODIPine (NORVASC) 10 mg tablet Take 0.5 tablets by mouth once daily. - potassium chloride 20 mEq TbER 20 mEq. - cyclobenzaprine (FLEXERIL) 10 mg tablet Take 1 tablet by mouth three times a day as needed for muscle spasm. - atorvastatin (LIPITOR) 20 mg tablet Take 1 tablet by mouth once daily. For cholesterol. - glimepiride (AMARYL) 4 mg tablet Take 1 tab twice a day. - losartan (COZAAR) 50 mg tablet Take 2 tablets by mouth once daily. - metFORMIN (GLUCOPHAGE) 1,000 mg tablet Take 1 tablet by mouth two times a day with meals. - ammonium lactate (LAC-HYDRIN) 12 % cream Apply to affected area as needed. - blood sugar diagnostic (BLOOD GLUCOSE TEST) test strip Test blood sugar(s) 1-2 times daily. Dx: Type 2 DM - Uncontrolled E11.65 Insulin: No - Lancets lancets Test blood sugar(s) 1-2 times daily. Dx: Type 2 DM - Uncontrolled E11.65 Insulin: No - Aspirin 81 mg tab Take 1 tablet by mouth once daily. Take with food. - Meridian-3 Fatty Acids-Vitamin E (FISH OIL) 1,000 mg cap Take 1 capsule by mouth once daily. - MULTI-VITAMIN ORAL Take by mouth. Problem List As Of Date 09/07/2024 Noted Resolved Internal hemorrhoids without mention of complic*03/08/2005 09/21/2014 Venous (peripheral) insufficiency [I87.2] 03/08/2005 External hemorrhoids without mention of complic*03/08/2005 09/21/2014 Generalized osteoarthrosis, unspecified site [M*03/08/2005 Sprain of lumbosacral (joint) (ligament) [S33.9*03/08/2005 09/21/2014 Open wound of knee, leg (except thigh), and ank*03/08/2005 09/21/2014 Chest pain, unspecified [R07.9] 03/08/2005 09/21/2014 Esophageal reflux [K21.9] 03/08/2005 09/21/2014 Calculus of gallbladder without mention of chol*03/08/2005 09/21/2014 Cholecystitis, unspecified [K81.9] 03/08/2005 09/21/2014 Varicose veins of lower extremities with ulcer *03/08/2005 09/21/2014 Sleep apnea [G47.30] 09/01/2007 Essential hypertension, benign [I10] 09/01/2007 History of colonic polyps [Z86.0100] 10/13/2007 Morbid obesity with BMI of 40.0-44.9, adult (HC*07/06/2010 Carpal tunnel syndrome on left [G56.02] 07/06/2010 09/21/2014 Hyperlipidemia, mixed [E78.2] 07/14/2010 Stasis dermatitis [I87.2] 07/07/2011 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 [facility]02-21-2025 Miscellaneous Notes* Telephone Encounter - Farzana Kelly PA-C - 09/04/2024 10:20 AM EST Note. * Telephone Encounter - Janny Alamo LPN - 09/04/2024 9:52 AM EST Spoke with pt and advised him of Farzana's message. He verbalizes understanding. Pt and pt's advise pt was out of the medication for a little less than 24 hrs until they got the refill. Janny Alamo LPN * Telephone Encounter - Farzana Kelly PA-C - 09/04/2024 9:13 AM EST He's been on this for the past few weeks. We didn't start a new med last night?. But no, would not expect lasix to cause hot flashes suddenly.. * Telephone Encounter - Janny Alamo LPN - 09/04/2024 8:50 AM EST Pt notified of Farzana's message with verbalized understanding. Pt wanting to check with Farzana pugh if the Lasix can cause hot flashes. Pt states he started taking this last night and about 1-2 hrs after taking it he got hot flashes and sweaty. Lasted about 5-10 mins and happened twice. Yannick Alamo LPN * Telephone Encounter - Farzana Kelly PA-C - 09/04/2024 8:17 AM EST It is only checked once a year. He did not have it checked in september of 2023. And his levels have always been normal, so no need to check more often. We can discuss at his appointment if he has questions. (If he looks on mychart he can see that we always check in/around March). Farzana Kelly PA-C * Telephone Encounter - Janny Alamo LPN - 09/04/2024 8:15 AM EST Pt notified of same. Pt asking if his PSA can be checked. Advises that pcp checks this every 6 months. Last one was done 04/01/24. Janny Alamo LPN * Telephone Encounter - Farzana Kelly PA-C - 09/04/2024 7:42 AM EST Sodium levels are back to normal. We will discuss rest of labs at [facility]. [facility] Telephone encounter Note * Telephone Encounter - Janny Alamo LPN - 09/04/2024 9:52 AM EST Spoke with pt and advised him of Farzana's message. He verbalizes understanding. Pt and pt's advise pt was out of the medication for a little less than 24 hrs until they got the refill. Janny Alamo LPN [facility]02-21-2025 Telephone encounter Note* Telephone Encounter - Farzana Kelly PA-C - 09/04/2024 9:13 AM EST He's been on this for the past few weeks. We didn't start a new med last night?. But no, would not expect lasix to cause hot flashes suddenly.. [facility] Telephone encounter Note* Telephone Encounter - Janny Alamo LPN - 09/04/2024 8:50 AM EST Pt notified of Farzana's message with verbalized understanding. Pt wanting to check with Farzana grimmee if the Lasix can cause hot flashes. Pt states he started taking this last night and about 1-2 hrs after taking it he got hot flashes and sweaty. Lasted about 5-10 mins and happened twice. Yannick Alamo LPN [address]21-2025 Telephone encounter Note* Telephone Encounter - Farzana Kelly PA-C - 09/04/2024 8:17 AM EST It is only checked once a year. He did not have it checked in september of 2023. And his levels have always been normal, so no need to check more often. We can discuss at his appointment if he has questions. (If he looks on mychart he can see that we always check in/around March). Farzana Kelly PA-C [facility]02-21-2025 Telephone encounter Note* Telephone Encounter - Janny Alamo LPN - 09/04/2024 8:15 AM EST Pt notified of same. Pt asking if his PSA can be checked. Advises that pcp checks this every 6 months. Last one was done 04/01/24. Janny Alamo LPN [facility]02-21-2025 Telephone encounter Note* Telephone Encounter - Farzana Kelly PA-C - 09/04/2024 7:42 AM EST Sodium levels are back to normal. We will discuss rest of labs at . [facility]02-20-[facility] Telephone encounter Note* Telephone Encounter - Janny Alamo LPN - 09/03/2024 8:17 AM EST Please send rx to [facility]. See pt's 's message. Janny Alamo LPN [facility]02-20-2025 Miscellaneous Notes* Telephone Encounter - Janny Alamo LPN - 09/03/2024 8:17 AM EST Please send rx to [facility]. See pt's 's message. Janny Alamo LPN * Telephone Encounter - Janny Alamo LPN - 09/03/2024 6:44 AM EST Please see pt's bp readings. Janny Alamo LPN documented [facility] Telephone encounter Note * Telephone Encounter - Janny Alamo LPN - 09/03/2024 6:44 AM EST Please see pt's bp readings. Janny Alamo LPN [facility]02-14-2025 Telephone encounter Note* Telephone Encounter - Janny Alamo LPN - 08/28/2024 9:40 AM EST Patient notified of results and provider's instructions. Patient verbalizes understanding. Janny Alamo LPN [facility]02-14-2025 Miscellaneous Notes* Telephone Encounter - Janny Alamo LPN - 08/28/2024 9:40 AM EST Patient notified of results and provider's instructions. Patient verbalizes understanding. Janny Alamo LPN * Telephone Encounter - Farzana Kelly PA-C - 08/28/2024 8:01 AM EST Let patient know that his kidney function is back to normal. His sodium level is a little low. I know he's doing a low sodium diet and had a lot of fluids recently. So no changes, but I want to trend this to make sure not getting too low. Recheck in 1 week. Farzana Kelly PA-C documented in [facility]Tr[facility] Telephone encounter Note * Telephone Encounter - Farzana Kelly PA-C - 08/28/2024 8:01 AM EST Let patient know that his kidney function is back to normal. His sodium level is a little low. I know he's doing a low sodium diet and had a lot of fluids recently. So no changes, but I want to trend this to make sure not getting too low. Recheck in 1 week. Farzana Kelly PA-C [facility]02-13-2025 Instructions* Patient Instructions* Farzana Kelly PA-C - 08/27/2024 12:52 PM EST Please send Tailored message with home BP readings in about 2 weeks. Keep follow up with both pulm and cardio as scheduled. Return to us as needed and for routine visits. documented in this encounterTr[facility]-2025 NoteHNO ID: [id number] Author: FARZANA KELLY PA-C Service: ? Author Type: Physician Traveling Auditor Type: Progress Notes Filed: 08/27/2024 13:16 Note Text: Chief Complaint Patient presents with: Hospital F/U TCM initial contact date: 08/20/2024 HPI Mary Aguiar is a 68 year old male who presents here today for hospital F/u. Patient was admitted to [facility] on 08/15/24 for influenza A. Was d/c on 08/19 Hospital stay was complicated by syncopal episode prior to admittance. Oxygen at 79% when squad arrived at home. Was dx with bilateral pneumonia. ID did not feel that patient had bacterial superinfection so atb was switched to azithrmycin. Patient discharged home on oxygen and 2 days of azithromycin, as well as prednisone. BP meds were adjusted due to patient's renal function when admitted. Patient is back on losartan and amlodipine (at 5mg). He is still on lasix so not currently taking HCTZ. Home readings have been elevated but improving the past couple days. Cardiac follow up is 09/24/2024 Pulm follow up in 09/23/2024 Physical Therapy had echo that was overall okay. Per , carotid US wnl as well. Patient states he is feeling much better. Has been able to breath well. Did have some diarrhea that is improving. Reports his shortness of breath started in June and he thought it was from actos. Stopped the medication and never felt better. Past medical history, appointments, medications, allergies reviewed. [...] External hemorrhoids without mention of complication 03/08/2005 Family history of pancreatic cancer 04/02/2023 sister Foot callus 04/02/2023 Generalized osteoarthrosis, unspecified site 03/08/2005 History of colonic polyps 10/13/2007 Hyperlipidemia, mixed 07/14/2010 Internal hemorrhoids without mention of complication 03/08/2005 Morbid obesity with BMI of 40.0-44.9, adult ([facility]) 07/06/2010 Palpitations 11/29/2021 Has had for many years Personal history of colonic polyps 2018 Plantar fasciitis 05/02/2018 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) 05/15/2021 Rosacea 03/11/2021 Sleep apnea 09/01/2007 Not using CPAP Stasis dermatitis 07/07/2011 Type 2 diabetes mellitus without complication, without long-term current use of insulin ([facility]) 02/11/2016 Uncontrolled type 2 diabetes mellitus with hyperglycemia ([facility]) 07/28/2021 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 Venous (peripheral) insufficiency 03/08/2005 Previous Surgical History PAST SURGICAL HISTORY Procedure Laterality Date CHOLECYSTECTOMY 2002 Cholecystectomy COLONOSCOPY FLX DX W/COLLJ SPEC WHEN PFRMD 11-21-07 COLONOSCOPY FLX DX W/COLLJ SPEC WHEN PFRMD 06/13/2018 [facility]-Michael Bernardbul--Repeat 5 years COLSC FLX W/RMVL OF TUMOR POLYP LESION SNARE TQ 04-23-13 DEBRIDEMENT SUBCUTANEOUS TISSUE 20 SQ CM/< Left 06/27/15 Debridement UIQ left breast infected glenny cyst ENDOVENOUS LASER, 1ST VEIN 11/16/2014 [facility] - see scanned documents ENDOVENOUS LASER, 1ST VEIN 06/05/2015 [facility] - right great saphenous vein NEUROPLASTY AND/TRANSPOS MEDIAN NRV CARPAL TUNNE Carpal tunnel decomp, right STRESS TEST EXERCISE 09/21/2013 Exercise Myocardial Perfusion Stress test TONSILLECTOMY HX under age 12 Family History FAMILY HISTORY Problem Relation Age of Onset Heart Mother CHF, DM Diabetes Mother Cancer Father lung Hypertension Sister Pancreatic Cancer Sister Hypertension Brother COPD Brother Patient Allergies ALLERGIES Allergen Reactions Actos [Pioglitazone] Shortness of Breath Farxiga [Dapagliflo* Other: See Comments tachycardi and felt poorly on it. Lisinopril Cough Current Medications Current Outpatient Medications on File Prior to Visit Medication Sig furosemide (LASIX) 40 mg tablet Take 40 mg by mouth once daily. potassium chloride 20 mEq TbER 20 mEq. cyclobenzaprine (FLEXERIL) 10 mg tablet Take 1 tablet by mouth three times a day as needed for muscle spasm. amLODIPine (NORVASC) 10 mg tablet Take 1 tablet by mouth once daily. atorvastatin (LIPITOR) 20 mg tablet Take 1 tablet by mouth once daily. For cholesterol. glimepiride (AMARYL) 4 mg tablet Take 1 tab twice a day. losartan (COZAAR) 50 mg tablet Take 2 tablets by mouth once daily. metFORMIN (GLUCOPHAGE) 1,000 mg tablet Take 1 tablet by mouth two times a day with meals. ammonium lactate (LAC-HYDRIN) 12 % cream Apply to affected area as needed. blood sampson (more content not included)...[facility]02-13-2025 History of Present illness Narrative* Farzana Kelly PA-C - 08/27/2024 12:28 PM EST Chief Complaint Patient presents with: Hospital F/U TCM initial contact date: 08/20/2024 HPI Mary Aguiar is a 68 year old male who presents here today for hospital F/u. Patient was admitted to [facility] on 08/15/24 for influenza A. Was d/c on 08/19 Hospital stay was complicated by syncopal episode prior to admittance. Oxygen at 79% when squad arrived at home. Was dx with bilateral pneumonia. ID did not feel that patient had bacterial superinfection so atb was switched to azithrmycin. Patient discharged home on oxygen and 2 days of azithromycin, as well as prednisone. BP meds were adjusted due to patient's renal function when admitted. Patient is back on losartan and amlodipine (at 5mg). He is still on lasix so not currently taking HCTZ. Home readings have been elevated but improving the past couple days. Cardiac follow up is 09/24/2024 Pulm follow up in 09/23/2024 Physical Therapy had echo that was overall okay. Per , carotid US wnl as well. Patient states he is feeling much better. Has been able to breath well. Did have some diarrhea thatis improving. Reports his shortness of breath started in June and he thought it was from actos. Stopped the medication and never felt better. Past medical history, appointments, medications, allergies reviewed. [...] External hemorrhoids without mention of complication 03/08/2005 Family history of pancreatic cancer 04/02/2023 sister Foot callus 04/02/2023 Generalized osteoarthrosis, unspecified site 03/08/2005 History of colonic polyps 10/13/2007 Hyperlipidemia, mixed 07/14/2010 Internal hemorrhoids without mention of complication 03/08/2005 Morbid obesity with BMI of 40.0-44.9, adult ([facility]) 07/06/2010 Palpitations 11/29/2021 Has had for many years Personal history of colonic polyps 2018 Plantar fasciitis 05/02/2018 Proteinuria due to type 2 diabetes mellitus ([facility]) ([facility]) 05/15/2021 Rosacea 03/11/2021 Sleep apnea 09/01/2007 Not using CPAP Stasis dermatitis 07/07/2011 Type 2 diabetes mellitus without complication, without long-term current use of insulin ([facility]) 02/11/2016 Uncontrolled type 2 diabetes mellitus with hyperglycemia ([facility]) 07/28/2021 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 Venous (peripheral) insufficiency 03/08/2005 Previous Surgical History PAST SURGICAL HISTORY Procedure Laterality Date CHOLECYSTECTOMY 2002 Cholecystectomy COLONOSCOPY FLX DX W/COLLJ SPEC WHEN PFRMD 11-21-07 COLONOSCOPY FLX DX W/COLLJ SPEC WHEN PFRMD 06/13/2018 [facility]-Michael [facility]--Repeat 5 years COLSC FLX W/RMVL OF TUMOR POLYP LESION SNARE TQ 04-23-13 DEBRIDEMENT SUBCUTANEOUS TISSUE 20 SQ CM/< Left 06/27/15 Debridement UIQ left breast infected glenny cyst ENDOVENOUS LASER, 1ST VEIN 11/16/2014 [facility] - see scanned documents ENDOVENOUS LASER, 1ST VEIN 06/05/2015 [facility] - right great saphenous vein NEUROPLASTY &/TRANSPOS MEDIAN NRV CARPAL TUNNE Carpal tunnel decomp, right STRESS TEST EXERCISE 09/21/2013 Exercise Myocardial Perfusion Stress test TONSILLECTOMY HX under age 10 Family History FAMILY HISTORY Problem Relation Age of Onset Heart Mother CHF, DM Diabetes Mother Cancer Father lung Hypertension Sister Pancreatic Cancer Sister Hypertension Brother COPD Brother Patient Allergies ALLERGIES Allergen Reactions Actos [Pioglitazone] Shortness of Breath Farxiga [Dapagliflo* Other: See Comments tachycardi and felt poorly on it. Lisinopril Cough Current Medications Current Outpatient Medications on File Prior to Visit Medication Sig furosemide (LASIX) 40 mg tablet Take 40 mg by mouth once daily. potassium chloride 20 mEq TbER 20 mEq. cyclobenzaprine (FLEXERIL) 10 mg tablet Take 1 tablet by mouth three times a day as needed for muscle spasm. amLODIPine (NORVASC) 10 mg tablet Take 1 tablet by mouth once daily. atorvastatin (LIPITOR) 20 mg tablet Take 1 tablet by mouth once daily. For cholesterol. glimepiride (AMARYL) 4 mg tablet Take 1 tab twice a day. losartan (COZAAR) 50 mg tablet Take 2 tablets by mouth once daily. metFORMIN (GLUCOPHAGE) 1,000 mg tablet Take 1 tablet by mouth two times a day with meals. ammonium lactate (LAC-HYDRIN) 12 % cream Apply to affected area as needed. blood sugar diagnostic (BLOOD GLUCOSE TEST) test strip Test blood sugar(s) 1-2 times daily. Dx: Type 2 DM - Uncontrolled E11.65 Insulin: No Lancets lancets Test blood sugar(s) 1-2 times daily. Dx: Type 2 DM - Uncontrolled E11.65 Insulin: No Aspirin 81 mg tab Take 1 tablet by mouth once daily. Take with food. Meridian-3 Fatty Acids-Vitamin E (FISH OIL) 1,000 mg cap Take 1 capsule by mouth once daily. MULTI-VITAMIN ORAL Take by mouth. azithromycin (ZITHROMAX) 500 mg tablet Take 500 mg by mouth once daily. (Patient not taking: Reported on 08/27/2024) dextromethorphan-guaiFENesin (MUCINEX-DM) 60-1,200 mg tablet Take 1 tablet by mouth every 12 hours.(Patient not taking: Reported on 08/27/2024) predniSONE (DELTASONE) 20 mg tablet Take 20 mg by mouth once daily. (Patient not taking: Reported on 08/27/2024) hydroCHLOROthiazide 25 mg tablet Take 1 tablet by mouth once daily. pioglitazone (ACTOS) 15 mg tablet Take 1 tablet by mouth once daily. (Patient not taking: Reported on 08/15/2024) No current facility-administered medications on file prior to visit. Social History Social History Tobacco Use Smoking status: Former Current packs/day: 0.00 Average packs/day: 0.5 packs/day for 30.0 years (15.0 ttl pk-yrs) Types: Cigarettes Start date: 01/16/1980 Quit date: 01/15/2010 Years since quittin.6 Smokeless tobacco: Former Quit date: 05/03/2011 Vaping Use Vaping status: Never Used Substance Use Topics Alcohol use: Yes Comment: very rarely Drug use: No Review of Symptoms REVIEW OF SYSTEMS See hpi EXAM: BP 138/70 (BP Site: Right Arm, BP Cuff Size: Large Adult) Pulse 62 Temp 36.2 C (97.1 F) Resp 20 Wt (!) 146.5 kg (323 lb) SpO2 100% BMI 43.81 kg/m General Appearance: Well appearing, alert, in no acute distress, well-hydrated, well nourished. andObese. Neck: Supple, no adenopathy; thyroid symmetric, normal size, no bruits. Lungs: Lungs clear to auscultation. No wheezing, rhonchi, rales.. Heart: RRR without murmur, gallop, or rubs. No ectopy. Extremities: No deformities, edema, skin discoloration, clubbing or cyanosis. Good capillary refill. .minimal edema Peripheral Pulses: Normal. Health Maintenance List BP Controlled (<130/80) due on 04/02/2024 Advance Directive Discussion due on 07/15/2024 DTaP,Tdap,Td Vaccine(1 - Tdap) due on 04/07/2025 RSV Vaccine(1 - Risk 60-74 years 1-dose series) due on 04/07/2025 Shingrix Vaccine(1 of 2) due on 04/07/2025 HbA1C due on 09/29/2024 Covid-19 Vaccine(2023- season) due on 11/09/2024 Dilated Retinal Exam due on 01/13/2025 Urine Albumin:Creatinine Ratio due on 04/01/2025 LDL Cholesterol due on 04/01/2025 Diabetic Foot Exam due on 04/07/2025 Depression Screening due on 04/07/2025 Anxiety Screening due on 04/07/2025 Annual PCP Team Chronic Disease Visit due on 06/25/2025 Colorectal Cancer Screening due on 07/11/2028 Abdominal Aortic Aneurysm Screening Completed Influenza Vaccine Completed Pneumococcal Vaccine: 50+ Completed Hepatitis C Screening Discontinued Data reviewed ASSESSMENT/PLAN: 1. Hospital discharge follow-up - ICD9: V67.59, ICD10: Z09 (primary diagnosis) See below 2. Influenza A - ICD9: 487.1, ICD10: J10.1 Improving symptoms. Continue current oxygen therapy Keep follow up with pulm 3. Essential hypertension, benign - ICD9: 401.1, ICD10: I10 - fair Control in office today. Home readings elevated. Patient to send home readings in 2 weeks. Stay on current medications - Recommend home blood pressure monitoring, to bring results to next visit - Encouraged sodium restriction, DASH or Mediterranean diet - Recommend regular aerobic exercise - AMLODIPINE 10 MG TABLET 4. Syncope, unspecified syncope type - ICD9: 780.2, ICD10: R55 Unclear Continue with cardiology workup 5. Chronic obstructive pulmonary disease with acute exacerbation (HCC) - ICD9: 491.21, ICD10: J44.1 Continue with pulm 6. ELEN (acute kidney injury) (HCC) - ICD9: 584.9, ICD10: N17.9 Recheck labs today. - BASIC METABOLIC PANEL Keep follow up as scheduled Return sooner prn. Farzana Kelly PA-C documented in this encounterTr[facility]25 NoteHNO ID: [id number] Author: RITA TAM MA Service: ? Author Type: Hospital Aides And Assistants Teacher Type: Progress Notes Filed: 08/20/2024 12:53 Note Text: POPULATION HEALTH NAVIGATION OUTREACH Action/FYI CM Pool Message: Type: TCM Navigation Team Please assist with scheduling TCM Hospital Discharge Follow up. TCM Eligible until 09/02/24. OON , No RR score Patient discharged from [facility] Discharge date: 08/19/24 Admitted for: Flu Risk Score: NA TCM eligible through 09/02/24 Outcome: 1st attempt. Spoke with spouse Susie. Appointment scheduled for 08/26/24. Reason for Outreach Community Monitoring/Network Navigator Pools AND Phone Line: CM Pool Patient Contacted: Spoke to patient/parent/or legal guardian Patient identified by name and : Yes Community Monitoring/Network Navigator Pools AND Phone Line actions taken: Patient scheduled: Hospital Follow-up: Low risk <9% 08/26/[address] [facility] with RICK SOW - Patient discharged from [facility], Discharge date: 08/19/24, Admitted for: Flu, Risk Score: NA 10/05/[address] [facility] with FARZANA KELLY - 6 month follow up Navigation Signature: Rita Tam MA August 20, 2024 12:45 [facility]02-06-2025 History of Present illness Narrative* Rita Tam MA - 08/20/2024 12:45 PM EST POPULATION HEALTH NAVIGATION OUTREACH Action/FYI CM Pool Message: Type: TCM Navigation Team Please assist with scheduling TCM Hospital Discharge Follow up. TCM Eligible until 09/02/24. OON , No RR score Patient discharged from [facility] Discharge date: 08/19/24 Admitted for: Flu Risk Score: NA TCM eligible through 09/02/24 Outcome: 1st attempt. Spoke with spouse Susie. Appointment scheduled for 08/26/24. Reason for Outreach Community Monitoring/Network Navigator Pools & Phone Line: CM Pool Patient Contacted: Spoke to patient/parent/or legal guardian Patient identified by name and : Yes Community Monitoring/Network Navigator Pools & Phone Line actions taken: Patient scheduled: Hospital Follow-up: Low risk <9% 08/26/[address] [facility] with RICK SOW - Patient discharged from [facility], Discharge date: 08/19/24, Admitted for: Flu, Risk Score: NA 10/05/[address] [facility] with FARZANA KELLY - 6 month follow up Navigation Signature: Rita Tam MA August 20, 2024 12:45 PM * Alesia Shrestha RN - 08/20/2024 12:15 PM EST Transition Care Management (TCM) Initial Outreach PCP Update / Actionable Items TCM Home Visit Referral Source of Stratification: [facility] Hospital Admission Status: Discharged Readmission Risk Score: n/a Patient's zip code: [address] Is zip code within program service area: No Patient meets program referral criteria: No Patient does not qualify for High Risk TCM Home Visit program due to: Patient's zip code is not located within program service area Readmission Risk Score does not meet criteria Disposition: Patient does not qualify for HRTIC, will provide TCM outreach follow-up for 30-days Alesia Shrestha RN August 20, 2024 12:20 PM Navigation Team Please assist with scheduling TCM Hospital Discharge Follow up. TCM Eligible until 09/02/24. OON , No RR score Thank you N/A - No specialty updates needed Patient Source: [id number] (OON) Discharge Outreach Summary: Spoke with pt and spouse , he reports feeling OK Denies SOB, fever , chills , vomiting BS this Am was 83 this AM, pt rechecked during the call, increased to 153. Encourage small meals, hydration. Spouse is an RN, assisting at home. Pt. encouraged to call PCP with any questions or concerns. Noted from [facility] records Pulmonary f/u suggested, pt dc'd with home 02. Patient discharged from [facility]. Discharge date: 08/19/24 Admitted for: Flu Readmission Risk: n/a Value-Based Contract: ACO Contact: Contact made with patient: Yes Hi, my name is Alesia Shrestha RN and I am calling from the [facility] on behalf of your Primary Care Provider, Rick Sow MD. I understand you were recently in the hospital, so I am calling to check in with you to ensure you are feeling well now that you are home. May I ask you a few questions related to your hospital stay and well-being? Yes Spoke to: Patient and Spouse, Susie Validation: Validated the person spoken to is actively involved in the patient's care. The patient was identified by Name and Date of . Symptoms: Are you feeling about the same, better or worse since leaving the hospital? Better Medications: Do you have any questions about taking your medications, including which medications you should be on, or do you need refills on your medications? No Medication Review: Partial mediation review completed, per patient preference New rx meds added from [place] 08/19 dc- spouse and pt report waiting on approval from pharmacy for 1 more dose of Tamiflu . Discharge Instructions: Your Discharge Instructions / After Visit Summary (AVS) are important in guiding you through the recovery process. Do you have any questions related to your discharge instructions? No Home Care: Were you discharged with home care? No Equipment: Do you have all the necessary equipment and supplies needed at your home? Dc'd with home 02 2-3L Social: Your mental health is as important to us as your physical health. Would you mind answering a few questions on this topic? No, patient declines. Follow-Up Appointment: [Appointment / TCM Follow-up within 14 days] I would like to help you schedule a hospital follow-up virtual or telephone visit with your PCP. This is a great way for you to connect with your provider to ensure you have safely transitioned home.If you are agreeable, I will send your request to a commercial director who will contact and assist you with that appointment. This will give you an opportunity to ask any questions or address any concerns youmay have with your PCP. Inform the patient that if they have any questions or concerns prior to that appointment, to call their PCP's office right away. Appointment Action: Patient desires an appointment. Complete Navigation Team box and route to appropriate pool for scheduling. Education details: Patient and family educated on issues/questions related to reason for admission,transition of care topics, and follow-up needed upon discharge. Alesia Shrestha RN August 20, 2024 12:18 PM [facility] NoteHNO ID: [id number] Author: ALESIA SHRESTHA RN Service: ? Author Type: Registered Nurse Type: Progress Notes Filed: 08/20/2024 12:31 Note Text: Transition Care Management (TCM) Initial Outreach PCP Update / Actionable Items TCM Home Visit Referral Source of Stratification: [facility] Hospital Admission Status: Discharged Readmission Risk Score: n/a Patient's zip code: [address] Is zip code within program service area: No Patient meets program referral criteria: No Patient does not qualify for High Risk TCM Home Visit program due to: Patient's zip code is not located within program service area Readmission Risk Score does not meet criteria Disposition: Patient does not qualify for HRTIC, will provide TCM outreach follow-up for 30-days Alesia Shrestha RN August 20, 2024 12:20 PM Navigation Team Please assist with scheduling TCM Hospital Discharge Follow up. TCM Eligible until 09/02/24. OON , No RR score Thank you N/A - No specialty updates needed Patient Source: [facility] (OON) Discharge Outreach Summary: Spoke with pt and spouse , he reports feeling OK Denies SOB, fever , chills , vomiting BS this Am was 83 this AM, pt rechecked during the call, increased to 153. Encourage small meals, hydration. Spouse is an RN, assisting at home. Pt. encouraged to call PCP with any questions or concerns. Noted from [facility] records Pulmonary f/u suggested, pt dc'd with home 02. Patient discharged from [facility]. Discharge date: 08/19/24 Admitted for: Flu Readmission Risk: n/a Value-Based Contract: ACO Contact: Contact made with patient: Yes Hi, my name is Alesia Shrestha RN and I am calling from the [facility] on behalf of your Primary Care Provider, Rick Sow MD. I understand you were recently in the hospital, so I am calling to check in with you to ensure you are feeling well now that you are home. May I ask you a few questions related to your hospital stay and well-being? Yes Spoke to: Patient and Spouse, Susie Validation: Validated the person spoken to is actively involved in the patient's care. The patient was identified by Name and Date of . Symptoms: Are you feeling about the same, better or worse since leaving the hospital? Better Medications: Do you have any questions about taking your medications, including which medications you should be on, or do you need refills on your medications? No Medication Review: Partial mediation review completed, per patient preference New rx meds added from [place] 08/19 dc- spouse and pt report waiting on approval from pharmacy for 1 more dose of Tamiflu . Discharge Instructions: Your Discharge Instructions / After Visit Summary (AVS) are important in guiding you through the recovery process. Do you have any questions related to your discharge instructions? No Home Care: Were you discharged with home care? No Equipment: Do you have all the necessary equipment and supplies needed at your home? Dc'd with home 02 2-3L Social: Your mental health is as important to us as your physical health. Would you mind answering a few questions on this topic? No, patient declines. Follow-Up Appointment: [Appointment / TCM Follow-up within 14 days] I would like to help you schedule a hospital follow-up virtual or telephone visit with your PCP. This is a great way for you to connect with your provider to ensure you have safely transitioned home. If you are agreeable, I will send your request to a commercial director who will contact and assist you with that appointment. This will give you an opportunity to ask any questions or address any concerns you may have with your PCP. Inform the patient that if they have any questions or concerns prior to that appointment, to call their PCP's office right away. Appointment Action: Patient desires an appointment. Complete Navigation Team box and route to appropriate pool for scheduling. Education details: Patient and family educated on issues/questions related to reason for admission, transition of care topics, and follow-up needed upon discharge. Alesia Shrestha RN August 20, 2024 12:18 [facility]02-06-2025 NoteHNO ID: [id number] Author: JANNY ALAMO LPN Service: ? Author Type: LICENSED NURSE Type: Progress Notes Filed: 08/20/2024 07:12 Note Text: Scan on 08/20/2024 2:35 AM by Matteo Arevalo PA-C: Discharge Summary Scan on 08/20/2024 2:35 AM byProviMatteo quispe PA-C: [facility] History of Present illness Narrative* Janny Alamo LPN - 08/20/2024 7:11 AM EST Scan on 08/20/2024 2:35 AM by Matteo Arevalo PA-C: Discharge Summary Scan on 08/20/2024 2:35 AM by Matteo Arevalo PA-C: Discharge Summary documented in this encounterTr[facility]25 NotePatient Outreach ([facility]) MARY AGUIAR ([id number]) 1955 M Date Time Provider Department 08/20/24 ALESIA SHRESTHA During your visit today, we recorded the following information about you: Alesia Shrestha RN 08/20/2024 12:31 PM Signed Transition Care Management (TCM) Initial Outreach PCP Update / Actionable Items TCM Home Visit Referral Source of Stratification: [facility] Hospital Admission Status: Discharged Readmission Risk Score: n/a Patient's zip code: [address] Is zip code within program service area: No Patient meets program referral criteria: No Patient does not qualify for High Risk TCM Home Visit program due to: Patient's zip code is not located within program service area Readmission Risk Score does not meet criteria Disposition: Patient does not qualify for HRTIC, will provide TCM outreach follow-up for 30-days Alesia Shrestha RN August 20, 2024 12:20 PM Navigation Team Please assist with scheduling TCM Hospital Discharge Follow up. TCM Eligible until 09/02/24. OON , No RR score Thank you N/A - No specialty updates needed Patient Source: [facility] (OON) Discharge Outreach Summary: Spoke with pt and spouse , he reports feeling OK Denies SOB, fever , chills , vomiting BS this Am was 83 this AM, pt rechecked during the call, increased to 153. Encourage small meals, hydration. Spouse is an RN, assisting at home. Pt. encouraged to call PCP with any questions or concerns. Noted from [facility] records Pulmonary f/u suggested, pt dc'd with home 02. Patient discharged from [facility]. Discharge date: 08/19/24 Admitted for: Flu Readmission Risk: n/a Value-Based Contract: ACO Contact: Contact made with patient: Yes Hi, my name is Alesia Shrestha RN and I am calling from the [facility] on behalf of your Primary Care Provider, Rick Sow MD. I understand you were recently in the hospital, so I am calling to check in with you to ensure you are feeling well now that you are home. May I ask you a few questions related to your hospital stay and well-being? Yes Spoke to: Patient and Spouse, Susie Validation: Validated the person spoken to is actively involved in the patient's care. The patient was identified by Name and Date of . Symptoms: Are you feeling about the same, better or worse since leaving the hospital? Better Medications: Do you have any questions about taking your medications, including which medications you should be on, or do you need refills on your medications? No Medication Review: Partial mediation review completed, per patient preference New rx meds added from [place] 08/19 dc- spouse and pt report waiting on approval from pharmacy for 1 more dose of Tamiflu . Discharge Instructions: Your Discharge Instructions / After Visit Summary (AVS) are important in guiding you through the recovery process. Do you have any questions related to your discharge instructions? No Home Care: Were you discharged with home care? No Equipment: Do you have all the necessary equipment and supplies needed at your home? Dc'd with home 02 2-3L Social: Your mental health is as important to us as your physical health. Would you mind answering a few questions on this topic? No, patient declines. Follow-Up Appointment: [Appointment / TCM Follow-up within 14 days] I would like to help you schedule a hospital follow-up virtual or telephone visit with your PCP. This is a great way for you to connect with your provider to ensure you have safely transitioned home. If you are agreeable, I will send your request to a commercial director who will contact and assist you with that appointment. This will give you an opportunity to ask any questions or address any concerns you may have with your PCP. Inform the patient that if they have any questions or concerns prior to that appointment, to call their PCP's office right away. Appointment Action: Patient desires an appointment. Complete Navigation Team box and route to appropriate pool for scheduling. Education details: Patient and family educated on issues/questions related to reason for admission, transition of care topics, and follow-up needed upon discharge. Alesia Shrestha RN August 20, 2024 12:18 PM Rita Tam MA 08/20/2024 12:53 PM Signed [facility] NAVIGATION OUTREACH Action/ CM Pool Message: Type: TCM Navigation Team Please assist with scheduling TCM Hospital Discharge Follow up. TCM Eligible until 09/02/24. OON , No RR score Patient discharged from [facility] Discharge date: 08/19/24 Admitted for: Flu Risk Score: NA TCM eligible through 09/02/24 Outcome: 1st attempt. Spoke with spouse Susie. Appointment scheduled for 08/26/24. Reason for Outreach Community Monitoring/Network Navigator Pools AND Phone Line: CM (more content not included)...[facility]02-05[facility]2025 [facility] Medical Records Department [address] [place] [address] Discharge Summary 08/19/24 1401 MR#: [id number] Acct: [id number] Name: MARY AGUIAR Rep #: [id number] : 1955 68 From: Mack An MD PCP: Dr. Rick Sow MD Status:ADM IN Location: [place] [address] Providers Date of Admission: 08/15/24 Date of Discharge: 08/19/24 Primary Care Physician: Dr. Rick Sow MD Consultations 08/17/24 08:44 Consult: Infectious Disease Routine Consulting Provider: Kishore Glover Reason for Consult: suspicion of bacterial pneumonia on Flu A EMERGENT Consult: No MD Notified: Yes Date Notified: 08/17/24 Time Notified: 08:44 Method of Notification: Text 08/17/24 11:48 Consult: Lathe Set Up Person / Pulmonary Medicine Routine Consulting Provider: Intensivists/Pulmonary Med Reason for Consult: o2 demands EMERGENT Consult: No MD Notified: Yes Date Notified: 08/17/24 Time Notified: 11:48 Method of Notification: Verbal Reason For Visit: INFLUENZA A WITH ACUTE RESPIRATORY INSUFFIENCY Diagnosis Discharge Diagnosis (1) Influenza A: Status: Acute Code(s): J10.1 - Influenza due to other identified influenza virus with other respiratory manifestations Plan 68-year-old gentleman was brought to ED after an episode of syncope, diagnosed with influenza A in urgent care. After he went home, he was seen and passed out. EMS found pulse oximetry 79% on room air. Patient has mild productive cough, denies any chest pain, nausea vomiting or abdominal pain. Symptoms started 3 days ago. Fever Tmax 100.2 Fahrenheit 1. Influenza A with suspicion of superimposed bacterial infection suggestive of sepsis: Patient admitted in ICU with suspicion of sepsis. The patient presented with sepsis with clinical indicators of tachypnea, tachycardia, leukocytosis due to pneumonia as described below with acute sepsis-related organ dysfunction as evidenced by acute hypoxic respiratory failure and lactic acidosis Patient did not had hypotension but lactic acidosis 2.5. CTAP does not show pulmonary embolism but airspace opacities in the lingula and left lower lobe and mild ground-glass attenuation in the right middle lobe and lower lobe likely on an infectious inflammatory basis. Patient was started on Tamiflu. Empirically started on IV vancomycin and Zosyn. 2/3: Urinary antigens are negative. ID consulted to titrate down the antibiotics. MRSA nasal screen ordered. Patient is still on 9 L of oxygen high flow 08/18: Discussed with ID yesterday. No clear evidence of bacterial superinfection. Antibiotic narrowed down to short course of azithromycin. Continue Tamiflu. 08/19: Patient is discharged on 2 more days of azithromycin and 2 more doses of Tamiflu. Home oxygen qualification test was done. Patient requires 2 L of oxygen at rest and 3 L on ambulation. I have reviewed the oxygen testing, and this patient qualifies for the home equipment and portability. The patient is mobile in the home and the community. 2. AE COPD with history of former tobacco use, quit 2012: Patient is being managed on scheduled bronchodilator, IV Solu-Medrol, Mucinex, incentive spirometry and Pep. 08/17: Patient has generalized edema of upper and lower extremity. He got about 5 L of IV fluid. Furosemide 40 mg IV 1 dose ordered. Amlodipine discontinued 08/18: A scheduled furosemide ordered. 08/19: Upper and lower extremity swelling is much improved almost 70 to 80%. Patient discharged on 2 more weeks of furosemide 40 mg daily and prednisone burst therapy 40 mg daily for 5 days. Hold HCTZ while on furosemide. Follow with PCP in 2 weeks. Follow-up in pulmonary clinic for sleep study and PFT. 3. Syncope - Volume resuscitate with NS IVF. 2 serial troponins were negative. ACS ruled out 2D echo was done which shows EF 65% with normal LV systolic function, mild concentric LVH. Patient might have chronic HFpEF. Follow-up in cardiology clinic 5. Morbid Obesity; with BMI of 44.2 this admission adding to the burden of disease outlined from #1 - #4 - Weight loss will be recommended. Check TSH. This complicates his case and may hamper recovery. 6. DM-2; of unknown control on metformin and glipizide with Hyperglycemia of 195 mg/dL and HgbA1c of 6.7% present on admission - ADA diet. FSBS q. AC/HS plus SSI. Hold oral hypoglycemic agents during hospitalization. Metformin should additionally be held 72 hours after IV contrast given for CTA of chest. 7. Essential Hypertension; on amlodipine, losartan and hydrochlorothiazide - Continue amlodipine but hold losartan and hydrochlorothiazide with elevated serum creatinine of 1.39 mg/dL present on admission. Give hydralazine IV prn for systolic blood pressure > 160 mmHg. 8. Hyperlipidemia; on atorvastatin -fasting profile within normal limit. Patient on atorvastatin 20 mg daily. Advised to continue. Carotid D (more content not included)... [facility]02-05-2025 NoteHNO ID: [id number] Author: JANNY ALAMO LPN Service: ? Author Type: LICENSED NURSE Type: Progress Notes Filed: 08/19/2024 07:28 Note Text: Scan on 08/18/2024 7:57 AM by Matteo Arevalo PA-C: Consultation - Pulmonary [facility]02-05-[facility] History of Present illness Narrative* Janny Alamo LPN - 08/19/2024 7:28 AM EST Scan on 08/18/2024 7:57 AM by Matteo Arevalo PA-C: Consultation - Pulmonary documented in this encounterTr[facility]-2025 NoteHNO ID: [id number] Author: JANNY ALAMO LPN Service: ? Author Type: LICENSED NURSE Type: Progress Notes Filed: 08/18/2024 07:33 Note Text: Scan on 08/17/2024 1:21 PM by Matteo Arevalo PA-C: [facility] History of Present illness Narrative* Janny Alamo LPN - 08/18/2024 7:33 AM EST Scan on 08/17/2024 1:21 PM by Matteo Arevalo PA-C: Consultation - ID documented in this encounterTr[facility] History of Present illness Narrative* Red Guerin MA - 08/17/2024 1:36 PM EST Scan on 08/16/2024 1:55 AM by Matteo Arevalo PA-C: Consultation - Emergency Medicine Scan on 08/16/2024 6:54 AM by ProviderMatteo PA-C: Consultation - Emergency Medicine Red Guerin MA documented in this encounterTr[facility]02-[facility]-2025 NoteHNO ID: [id number] Author: RED GUERIN MA Service: ? Author Type: Hospital Aides [facility] Assistants Teacher Type: Progress Notes Filed: 08/17/2024 13:38 Note Text: Scan on 08/16/2024 1:55 AM by ProviderMatteo PA-C: Consultation - Emergency Medicine Scan on 08/16/2024 6:54 AM by Matteo Arevalo PA-C: Consultation - Emergency Medicine Red Guerin [facility]02-02-2025 Evaluation note* Diagnosis Onset Date Resolution Status Admit Date Former smoker acute August 11:17pm Influenza A acute August 15, 2024 11:17pm Lactic acidosis acute August 15, 2024 11:17pm Pneumonia acute August 15, 2024 11:17pm Respiratory insufficiency acute August 15, 2024 11:17pm Sepsis acute August 15, 2024 11:17pm Syncope acute August 15, 2024 11:17pm Morbid obesity with BMI of 40.0-44.9, adult chronic August 15 11:17pm COPD exacerbation resolved 2024 11:17pm Abnormal chest CT acute September 122024 2:12pm Shortness of breath acute September 23, 2024 2:12pm Hypoxia chronic September 23 2:12pm Morbid obesity with BMI of 40.0-44.9, adult chronic September 23 2:12pm Sleep apnea chronic September 23 2:12pm Carotid artery disease [facility] 2024 10:54am Diabetes mellitus chronic September 122024 10:54am Dyslipidemia chronic September 24, 2024 10:54am Dyspnea on exertion chronic September 24, 2024 10:54am HTN (hypertension) chronic September 24, 2024 10:54am Hypoxia chronic September 24 10:54am Morbid obesity chronic September 10:54am Sleep apnea chronic September 24 10:54am [facility] Work Phone: 1(482) 470-492102-02-2025 Evaluation note* Diagnosis Onset Date Resolution Status Admit Date Former smoker acute August 11:17pm Influenza A acute August 15, 2024 11:17pm Lactic acidosis acute August 15, 2024 11:17pm Pneumonia acute August 15, 2024 11:17pm Respiratory insufficiency acute August 15, 2024 11:17pm Sepsis acute August 15, 2024 11:17pm Syncope acute August 15, 2024 11:17pm Morbid obesity with BMI of 40.0-44.9, adult chronic August 15 025 11:17pm COPD exacerbation resolved 2024 11:17pm Abnormal chest CT acute September 122024 2:12pm Shortness of breath acute September 23, 2024 2:12pm Hypoxia chronic September 23 2:12pm Morbid obesity with BMI of 40.0-44.9, adult chronic September 23 2:12pm Sleep apnea chronic September 23 2:12pm Carotid artery disease chronic [facility] 2024 10:54am Diabetes mellitus chronic September 122024 10:54am Dyslipidemia chronic September 24, 2024 10:54am Dyspnea on exertion chronic September 24, 2024 10:54am HTN (hypertension) chronic September 24, 2024 10:54am Hypoxia chronic September 24 10:54am Morbid obesity chronic September 10:54am Sleep apnea chronic September 24, 025 10:54am Abnormal chest CT acute November 11:10am Restrictive airway disease acute November 13, 2024 11:10am Hypoxia chronic November 13, 2024 11:10am Morbid obesity with BMI of 40.0-44.9, adult chronic November 13, 2024 1 1:10am Sleep apnea chronic November 13, 2024 11:10am [facility] Work Phone: 1(874) 295-693902-01-2025 NoteHNO ID: [id number] Author: JHON NAVA MD Service: ? Author Type: Physician Type: Progress Notes Filed: 08/15/2024 14:25 Note Text: Patient presents with: Cough: X 1 week, sob x 1month HPI: Feeling sick starting 3 nights ago. Fever since last night. He has had a cough for several weeks. Positive symptoms: Cough, Shortness of breath, Nasal Congestion, Rhinorrhea, Fever, Chills, Body Aches, Malaise, Fatigue, Negative symptoms: Chest pain, Sore throat, Nausea, Vomiting, Diarrhea, OTC: Lozenges MEDICATIONS: Current Outpatient Medications Medication Sig cyclobenzaprine (FLEXERIL) 10 mg tablet Take 1 tablet by mouth three times a day as needed for muscle spasm. amLODIPine (NORVASC) 10 mg tablet Take 1 tablet by mouth once daily. atorvastatin (LIPITOR) 20 mg tablet Take 1 tablet by mouth once daily. For cholesterol. glimepiride (AMARYL) 4 mg tablet Take 1 tab twice a day. hydroCHLOROthiazide 25 mg tablet Take 1 tablet by mouth once daily. losartan (COZAAR) 50 mg tablet Take 2 tablets by mouth once daily. metFORMIN (GLUCOPHAGE) 1,000 mg tablet Take 1 tablet by mouth two times a day with meals. ammonium lactate (LAC-HYDRIN) 12 % cream Apply to affected area as needed. blood sugar diagnostic (BLOOD GLUCOSE TEST) test strip Test blood sugar(s) 1-2 times daily. Dx: Type 2 DM - Uncontrolled E11.65 Insulin: No Lancets lancets Test blood sugar(s) 1-2 times daily. Dx: Type 2 DM - Uncontrolled E11.65 Insulin: No Aspirin 81 mg tab Take 1 tablet by mouth once daily. Take with food. Meridian-3 Fatty Acids-Vitamin E (FISH OIL) 1,000 mg cap Take 1 capsule by mouth once daily. MULTI-VITAMIN ORAL Take by mouth. pioglitazone (ACTOS) 15 mg tablet Take 1 tablet by mouth once daily. (Patient not taking: Reported on 08/15/2024) No current facility-administered medications for this visit. ALLERGIES: ALLERGIES Allergen Reactions Actos [Pioglitazone] Shortness of Breath Farxiga [Dapagliflo* Other: See Comments tachycardi and felt poorly on it. Lisinopril Cough VITALS: BP 194/76 Pulse 98 Temp (!) 38.8 ?C (101.8 ?F) Resp 22 Wt (!) 152.8 kg (336 lb 13.8 oz) SpO2 92% BMI 45.69 kg/m? PHYSICAL EXAM: GEN: mildly ill appearing HEENT: PERRL, EOMI, conjunctiva clear Ears: canals clear. TMs without erythema, bulge, or effusion Sinuses: non-tender frontal sinus, non-tender maxillary sinuses Throat: moist mucous membranes, mild erythema, no exudate Neck: supple, no thyromegaly, no lymphadenopathy HEART: regular rate, regular rhythm, no murmurs LUNGS: clear to auscultation, no wheezes or crackles, no increased WOB ASSESSMENT/PLAN: 1. Influenza A - ICD9: 487.1, ICD10: J10.1 (primary diagnosis) 2. Influenza-like illness - ICD9: 487.1, ICD10: J11.1 - INFLUENZA AANDB MOLECULAR (POC) -positive for influenza A. - Discussed supportive care treatment with rest, cough and cold medicine, and analgesia. - Use albuterol nebulizer at home. Follow up in the ER with worsening cough, worsening shortness of breath, increasing chest pain, or lethargy. Jhon Nava, [facility]02-01-2025 History of Present illness Narrative* Jhon Nava MD - 08/15/2024 1:56 PM EST Patient presents with: Cough: X 1 week, sob x 1month HPI: Feeling sick starting 3 nights ago. Fever since last night. He has had a cough for several weeks. Positive symptoms: Cough, Shortness of breath, Nasal Congestion, Rhinorrhea, Fever, Chills, Body Aches, Malaise, Fatigue, Negative symptoms: Chest pain, Sore throat, Nausea, Vomiting, Diarrhea, OTC: Lozenges MEDICATIONS: Current Outpatient Medications Medication Sig cyclobenzaprine (FLEXERIL) 10 mg tablet Take 1 tablet by mouth three times a day as needed for muscle spasm. amLODIPine (NORVASC) 10 mg tablet Take 1 tablet by mouth once daily. atorvastatin (LIPITOR) 20 mg tablet Take 1 tablet by mouth once daily. For cholesterol. glimepiride (AMARYL) 4 mg tablet Take 1 tab twice a day. hydroCHLOROthiazide 25 mg tablet Take 1 tablet by mouth once daily. losartan (COZAAR) 50 mg tablet Take 2 tablets by mouth once daily. metFORMIN (GLUCOPHAGE) 1,000 mg tablet Take 1 tablet by mouth two times a day with meals. ammonium lactate (LAC-HYDRIN) 12 % cream Apply to affected area as needed. blood sugar diagnostic (BLOOD GLUCOSE TEST) test strip Test blood sugar(s) 1-2 times daily. Dx: Type 2 DM - Uncontrolled E11.65 Insulin: No Lancets lancets Test blood sugar(s) 1-2 times daily. Dx: Type 2 DM - Uncontrolled E11.65 Insulin: No Aspirin 81 mg tab Take 1 tablet by mouth once daily. Take with food. Meridian-3 Fatty Acids-Vitamin E (FISH OIL) 1,000 mg cap Take 1 capsule by mouth once daily. MULTI-VITAMIN ORAL Take by mouth. pioglitazone (ACTOS) 15 mg tablet Take 1 tablet by mouth once daily. (Patient not taking: Reported on 08/15/2024) No current facility-administered medications for this visit. ALLERGIES: ALLERGIES Allergen Reactions Actos [Pioglitazone] Shortness of Breath Farxiga [Dapagliflo* Other: See Comments tachycardi and felt poorly on it. Lisinopril Cough VITALS: BP 194/76 Pulse 98 Temp (!) 38.8 C (101.8 F) Resp 22 Wt (!) 152.8 kg (336 lb 13.8 oz) SpO2 92% BMI 45.69 kg/m PHYSICAL EXAM: GEN: mildly ill appearing HEENT: PERRL, EOMI, conjunctiva clear Ears: canals clear. TMs without erythema, bulge, or effusion Sinuses: non-tender frontal sinus, non-tender maxillary sinuses Throat: moist mucous membranes, mild erythema, no exudate Neck: supple, no thyromegaly, no lymphadenopathy HEART: regular rate, regular rhythm, no murmurs LUNGS: clear to auscultation, no wheezes or crackles, no increased WOB ASSESSMENT/PLAN: 1. Influenza A - ICD9: 487.1, ICD10: J10.1 (primary diagnosis) 2. Influenza-like illness - ICD9: 487.1, ICD10: J11.1 - INFLUENZA A&B MOLECULAR (POC) -positive for influenza A. - Discussed supportive care treatment with rest, cough and cold medicine, and analgesia. - Use albuterol nebulizer at home. Follow up in the ER with worsening cough, worsening shortness of breath, increasing chest pain, or lethargy. Jhon Nava MD documented [facility] Telephone encounter Note * Telephone Encounter - Amanda Marrero RN - 07/06/2024 11:45 AM EST Patient and his , given provider's message below and agreeable to recommendations. Patient has no swelling. Amanda Marrero RN [facility]12-23-2024 Miscellaneous Notes* Telephone Encounter - Amanda Marrero RN - 07/06/2024 11:45 AM EST Patient and his , given provider's message below and agreeable to recommendations. Patient has no swelling. Amanda Marrero RN * Telephone Encounter - Blanka Lora APRN.CNP - 07/06/2024 11:33 AM EST Stop Actos. I have listed as an allergy. Keep a watch on Blood sugars through the week. Go to ER if dyspnea worsens or is not relived with rest. Any swelling? 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 States he believes this medication is causing him shortness of breath. In September this year patient began taking Actos and developed SOB about a week later and they feel it was related to the medication. Per record, on 04/07/24, pt's Actos was decreased. Patient calling this morning to state over the last 2 weeks his SOB seems to be getting worse and thinks his Actos might be causing it. Patient asking if he can stop his Actos to see if this helps his SOB? Patient recently saw MARCELINA Payne on 06/25/24 and pt states he forgot to discuss this issue with her. SpO2 at visit was 96% on room air. He states his HGBA1C has improved and his blood sugars have been 70's-120's in mornings. This nurse discussed his symptom of SOB further. Patient able to speak in full sentences. No distress. reports she was a nurse and monitors him. They do not have a home oximeter. Pt's BP at timeof this call was 158/86 and patient states he has been active this morning and states he has been stressed this morning. Takes BP medications as ordered. Denies current chest pain, severe SOB, weakness, vision changes, dizziness or headache. This nurse advised pt to proceed to nearest ER should he develop those sx's and he verbalized understanding. Patient aware that MARCELINA Payne is out of office this week as well as PCP, and will be advised on his medication question as soon as possible. Amanda Marrero RN documented in this encounterTr[facility]12[facility] Telephone encounter Note * Telephone Encounter - Blanka Lora APRN.CNP - 07/06/2024 11:33 AM EST Stop Actos. I have listed as an allergy. Keep a watch on Blood sugars through the week. Go to ER if dyspnea worsens or is not relived with rest. Any swelling? 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 States he believes this medication is causing him shortness of breath. In September this year patient began taking Actos and developed SOB about a week later and they feel it was related to the medication. Per record, on 04/07/24, pt's Actos was decreased. Patient calling this morning to state over the last 2 weeks his SOB seems to be getting worse and thinks his Actos might be causing it. Patient asking if he can stop his Actos to see if this helps his SOB? Patient recently saw MARCELINA Payne on 06/25/24 and pt states he forgot to discuss this issue with her. SpO2 at visit was 96% on room air. He states his HGBA1C has improved and his blood sugars have been 70's-120's in mornings. This nurse discussed his symptom of SOB further. Patient able to speak in full sentences. No distress. reports she was a nurse and monitors him. They do not have a home oximeter. Pt's BP at timeof this call was 158/86 and patient states he has been active this morning and states he has been stressed this morning. Takes BP medications as ordered. Denies current chest pain, severe SOB, weakness, vision changes, dizziness or headache. This nurse advised pt to proceed to nearest ER should he develop those sx's and he verbalized understanding. Patient aware that MARCELINA Payne is out of office this week as well as PCP, and will be advised on his medication question as soon as possible. Amanda Marrero RN [facility]12-12-2024 NoteHNO ID: [id number] Author: FARZANA KELLY PA-C Service: ? Author Type: Physician Traveling Auditor Type: Progress Notes Filed: 06/25/2024 10:21 Note Text: Chief Complaint Patient presents with: Neck Pain: X 2 weeks HPI Mary Aguiar is a 68 year old male who presents here today for neck pain. Patient reports left sided neck pain for the past 2 weeks. Tried massage but then symptoms worsened yesterday. No n/t in arm. Pain worsening with head turning/tilting. Tried OTC creams, advil and heating pad. Past medical history, appointments, medications, allergies reviewed. [...] External hemorrhoids without mention of complication 03/08/2005 Family history of pancreatic cancer 04/02/2023 sister Foot callus 04/02/2023 Generalized osteoarthrosis, unspecified site 03/08/2005 History of colonic polyps 10/13/2007 Hyperlipidemia, mixed 07/14/2010 Internal hemorrhoids without mention of complication 03/08/2005 Morbid obesity with BMI of 40.0-44.9, adult ([facility]) 07/06/2010 Palpitations 11/29/2021 Has had for many years Personal history of colonic polyps 2018 Plantar fasciitis 05/02/2018 Proteinuria due to type 2 diabetes mellitus ([facility]) ([facility]) 05/15/2021 Rosacea 03/11/2021 Sleep apnea 09/01/2007 Not using CPAP Stasis dermatitis 07/07/2011 Type 2 diabetes mellitus without complication, without long-term current use of insulin ([facility]) 02/11/2016 Uncontrolled type 2 diabetes mellitus with hyperglycemia ([facility]) 07/28/2021 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 Venous (peripheral) insufficiency 03/08/2005 Previous Surgical History PAST SURGICAL HISTORY Procedure Laterality Date CHOLECYSTECTOMY 2002 Cholecystectomy COLONOSCOPY FLX DX W/COLLJ SPEC WHEN PFRMD 11-21-07 COLONOSCOPY FLX DX W/COLLJ SPEC WHEN PFRMD 06/13/2018 [facility]-Michael De Anda--Repeat 5 years COLSC FLX W/RMVL OF TUMOR POLYP LESION SNARE TQ 04-23-13 DEBRIDEMENT SUBCUTANEOUS TISSUE 20 SQ CM/< Left 06/27/15 Debridement UIQ left breast infected glenny cyst ENDOVENOUS LASER, 1ST VEIN 11/16/2014 [facility] - see scanned documents ENDOVENOUS LASER, 1ST VEIN 06/05/2015 [facility] - right great saphenous vein NEUROPLASTY AND/TRANSPOS MEDIAN NRV CARPAL TUNNE Carpal tunnel decomp, right STRESS TEST EXERCISE 09/21/2013 Exercise Myocardial Perfusion Stress test TONSILLECTOMY HX under age 12 Family History FAMILY HISTORY Problem Relation Age of Onset Heart Mother CHF, DM Diabetes Mother Cancer Father lung Hypertension Sister Pancreatic Cancer Sister Hypertension Brother COPD Brother Patient Allergies ALLERGIES Allergen Reactions Farxiga [Dapagliflo* Other: See Comments tachycardi and felt poorly on it. Lisinopril Cough Current Medications Current Outpatient Medications on File Prior to Visit Medication Sig amLODIPine (NORVASC) 10 mg tablet Take 1 tablet by mouth once daily. atorvastatin (LIPITOR) 20 mg tablet Take 1 tablet by mouth once daily. For cholesterol. glimepiride (AMARYL) 4 mg tablet Take 1 tab twice a day. hydroCHLOROthiazide 25 mg tablet Take 1 tablet by mouth once daily. losartan (COZAAR) 50 mg tablet Take 2 tablets by mouth once daily. metFORMIN (GLUCOPHAGE) 1,000 mg tablet Take 1 tablet by mouth two times a day with meals. pioglitazone (ACTOS) 15 mg tablet Take 1 tablet by mouth once daily. ammonium lactate (LAC-HYDRIN) 12 % cream Apply to affected area as needed. blood sugar diagnostic (BLOOD GLUCOSE TEST) test strip Test blood sugar(s) 1-2 times daily. Dx: Type 2 DM - Uncontrolled E11.65 Insulin: No Lancets lancets Test blood sugar(s) 1-2 times daily. Dx: Type 2 DM - Uncontrolled E11.65 Insulin: No Aspirin 81 mg tab Take 1 tablet by mouth once daily. Take with food. Meridian-3 Fatty Acids-Vitamin E (FISH OIL) 1,000 mg cap Take 1 capsule by mouth once daily. MULTI-VITAMIN ORAL Take by mouth. No current facility-administered medications on file prior to visit. Social History Social History Tobacco Use Smoking status: Former Current packs/day: 0.00 Average packs/day: 0.5 packs/day for 30.0 years (15.0 ttl pk-yrs) Types: Cigarettes Start date: 01/16/1980 Quit date: 01/15/2010 Years since quittin.4 Smokeless tobacco: Former Quit date: 05/03/2011 Vaping Use Vaping status: Never Used Substance Use Topics Alcohol use: Yes Comment: very rarely Drug use: No Review of Symptoms REVIEW OF SYSTEMS See hpi EXAM (more content not included)...[facility]12-12-2024 History of Present illness Narrative* Farzana Kelly PA-C - 06/25/2024 10:06 AM EST Chief Complaint Patient presents with: Neck Pain: X 2 weeks HPI Mary Aguiar is a 68 year old male who presents here today for neck pain. Patient reports left sided neck pain for the past 2 weeks. Tried massage but then symptoms worsened yesterday. No n/t in arm. Pain worsening with head turning/tilting. Tried OTC creams, advil and heating pad. Past medical history, appointments, medications, allergies reviewed. [...] External hemorrhoids without mention of complication 03/08/2005 Family history of pancreatic cancer 04/02/2023 sister Foot callus 04/02/2023 Generalized osteoarthrosis, unspecified site 03/08/2005 History of colonic polyps 10/13/2007 Hyperlipidemia, mixed 07/14/2010 Internal hemorrhoids without mention of complication 03/08/2005 Morbid obesity with BMI of 40.0-44.9, adult ([facility]) 07/06/2010 Palpitations 11/29/2021 Has had for many years Personal history of colonic polyps 2018 Plantar fasciitis 05/02/2018 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) ([facility]) 05/15/2021 Rosacea 03/11/2021 Sleep apnea 09/01/2007 Not using CPAP Stasis dermatitis 07/07/2011 Type 2 diabetes mellitus without complication, without long-term current use of insulin ([facility]) 02/11/2016 Uncontrolled type 2 diabetes mellitus with hyperglycemia ([facility]) 07/28/2021 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 Venous [...] glenny cyst ENDOVENOUS LASER, 1ST VEIN 11/16/2014 [facility] - see scanned documents ENDOVENOUS LASER, 1ST VEIN 06/05/2015 [facility] - right great saphenous vein NEUROPLASTY &/TRANSPOS MEDIAN NRV CARPAL TUNNE Carpal tunnel decomp, right STRESS TEST EXERCISE 09/21/2013 Exercise Myocardial Perfusion Stress test TONSILLECTOMY HX under age 12 Family History FAMILY HISTORY Problem Relation Age of Onset Heart Mother CHF, DM Diabetes Mother Cancer Father lung Hypertension Sister Pancreatic Cancer Sister Hypertension Brother COPD Brother Patient Allergies ALLERGIES Allergen Reactions Farxiga [Dapagliflo* Other: See Comments tachycardi and felt poorly on it. Lisinopril Cough Current Medications Current Outpatient Medications on File Prior to Visit Medication Sig amLODIPine (NORVASC) 10 mg tablet Take 1 tablet by mouth once daily. atorvastatin (LIPITOR) 20 mg tablet Take 1 tablet by mouth once daily. For cholesterol. glimepiride (AMARYL) 4 mg tablet Take 1 tab twice a day. hydroCHLOROthiazide 25 mg tablet Take 1 tablet by mouth once daily. losartan (COZAAR) 50 mg tablet Take 2 tablets by mouth once daily. metFORMIN (GLUCOPHAGE) 1,000 mg tablet Take 1 tablet by mouth two times a day with meals. pioglitazone (ACTOS) 15 mg tablet Take 1 tablet by mouth once daily. ammonium lactate (LAC-HYDRIN) 12 % cream Apply to affected area as needed. blood sugar diagnostic (BLOOD GLUCOSE TEST) test strip Test blood sugar(s) 1-2 times daily. Dx: Type 2 DM - Uncontrolled E11.65 Insulin: No Lancets lancets Test blood sugar(s) 1-2 times daily. Dx: Type 2 DM - Uncontrolled E11.65 Insulin: No Aspirin 81 mg tab Take 1 tablet by mouth once daily. Take with food. Meridian-3 Fatty Acids-Vitamin E (FISH OIL) 1,000 mg cap Take 1 capsule by mouth once daily. MULTI-VITAMIN ORAL Take by mouth. No current facility-administered medications on file prior to visit. Social History Social History Tobacco Use Smoking status: Former Current packs/day: 0.00 Average packs/day: 0.5 packs/day for 30.0 years (15.0 ttl pk-yrs) Types: Cigarettes Start date: 01/16/1980 Quit date: 01/15/2010 Years since quittin.4 Smokeless tobacco: Former Quit date: 05/03/2011 Vaping Use Vaping status: Never Used Substance Use Topics Alcohol use: Yes Comment: very rarely Drug use: No Review of Symptoms REVIEW OF SYSTEMS See hpi EXAM: BP 130/80 (BP Site: Right Arm, BP Position: Sitting, BP Cuff Size: Large Adult) Pulse 71 Temp 36.3 C (97.4 F) Resp 18 Wt (!) 155.6 kg (343 lb) SpO2 96% BMI 46.52 kg/m General Appearance: Well appearing, alert, in no acute distress, well-hydrated, well nourished.. Musculoskeletal: +pain to left trapezius muscle. FROM of c-spine. No pain to palp of spine. Lateralflexion with discomfort. NVI. Neurologic: Gait normal. Reflexes normal and symmetric. Sensation grossly intact.. Health Maintenance List DTaP,Tdap,Td Vaccine(1 - Tdap) due on 04/07/2025 RSV Vaccine(1 - Risk 60-74 years 1-dose series) due on 04/07/2025 Shingrix Vaccine(1 of 2) due on 04/07/2025 HbA1C due on 09/29/2024 Dilated Retinal Exam due on 01/13/2025 Urine Albumin:Creatinine Ratio due on 04/01/2025 LDL Cholesterol due on 04/01/2025 Diabetic Foot Exam due on 04/07/2025 Annual PCP Team Chronic Disease Visit due on 04/07/2025 Depression Screening due on 04/07/2025 Anxiety Screening due on 04/07/2025 BP Controlled (<130/80) due on 04/07/2025 Colorectal Cancer Screening due on 07/11/2028 Abdominal Aortic Aneurysm Screening Completed Influenza Vaccine Completed Advance Directive Discussion Completed Covid-19 Vaccine Completed Pneumococcal Vaccine: 65+ Completed Hepatitis C Screening Discontinued Data reviewed ASSESSMENT/PLAN: 1. Neck sprain, initial encounter - ICD9: 847.0, ICD10: S13.9XXA (primary diagnosis) Start flexeril Continue conservative management at home but discussed Physical Therapy if not improving 2. Neck pain - ICD9: 723.1, ICD10: M54.2 As above - CYCLOBENZAPRINE 10 MG TABLET 3. Neck muscle spasm - ICD9: 728.85, ICD10: M62.838 - CYCLOBENZAPRINE 10 MG TABLET Farzana Kelly PA-C documented in this encounterTr[facility]12[facility] Telephone encounter Note * Telephone Encounter - Yue Espinoza RN - 06/24/2024 10:25 AM EST Patient calls for mild to moderate neck pain. Nurse triage completed. Protocol recommends see provider within 3 days. Appointment scheduled for tomorrow at 10 am per patient request. Care advice reviewed. Patient verbalizes understanding. Reason for Disposition [1] MODERATE neck pain (e.g., interferes with normal activities) AND [2] present > 3 days Answer Assessment - Initial Assessment Questions 1. ONSET: Patient reports soreness for the past 1 1/2 to 2 weeks. 2. LOCATION:Left side of neck and around to the back a little. 3. PATTERN: Constant. Taking ibuprofen prn with some relief. 4. SEVERITY: - MILD (1-3): doesn't interfere with normal activities - MODERATE (4-7): interferes with normal activities or awakens from sleep 5. RADIATION: No radiation 6. CORD SYMPTOMS: No weakness or numbness of the arms or legs 7. CAUSE: Patient not certain 8. NECK OVERUSE: No recent activities that involved turning or twisting the neck. 9. OTHER SYMPTOMS: No headache, fever, chest pain, neck swelling. Occasional SOB with exertion but patient reports he contributes that to his weight gain around the middle. Protocols used: Neck Pain or [id number] [facility]12-11-2024 Miscellaneous Notes* Telephone Encounter - Yue Espinoza RN - 06/24/2024 10:25 AM EST Patient calls for mild to moderate neck pain. Nurse triage completed. Protocol recommends see provider within 3 days. Appointment scheduled for tomorrow at 10 am per patient request. Care advice reviewed. Patient verbalizes understanding. Reason for Disposition [1] MODERATE neck pain (e.g., interferes with normal activities) AND [2] present > 3 days Answer Assessment - Initial Assessment Questions 1. ONSET: Patient reports soreness for the past 1 1/2 to 2 weeks. 2. LOCATION:Left side of neck and around to the back a little. 3. PATTERN: Constant. Taking ibuprofen prn with some relief. 4. SEVERITY: - MILD (1-3): doesn't interfere with normal activities - MODERATE (4-7): interferes with normal activities or awakens from sleep 5. RADIATION: No radiation 6. CORD SYMPTOMS: No weakness or numbness of the arms or legs 7. CAUSE: Patient not certain 8. NECK OVERUSE: No recent activities that involved turning or twisting the neck. 9. OTHER SYMPTOMS: No headache, fever, chest pain, neck swelling. Occasional SOB with exertion but patient reports he contributes that to his weight gain around the middle. Protocols used: Neck Pain or [id number] documented in this encounterTrinity [facility]10-28-2024 NoteHNO ID: [id number] Author: LALITA PEREZ LPN Service: ? Author Type: LICENSED NURSE Type: Progress Notes Filed: 05/11/2024 11:26 Note Text: Patient presents for COVID vaccine. Denies any problems at this time. Tolerated injection well. [facility] History of Present illness Narrative* Lalita Perez LPN - 05/11/2024 11:26 AM EDT Patient presents for COVID vaccine. Denies any problems at this time. Tolerated injection well. Lalita Perez LPN documented in this encounterTrinity [facility]09-24-2024 Instructions* Patient Instructions* Rick Sow MD - 04/07/2024 11:11 AM EDT Get flu and COVID on or after 04/27/2025. Consider getting the RSV vaccine, Tdap for tetanus updateand Shingrix for shingles at a local pharmacy Please bring in copies of your power of insurance attorney for health care and living will. We decreased the Actos to 15 mg a day. Please get labs and urine test done on or after 09/26/2023 prior to your next visit. Screening schedule The following prevention plan is recommended: Depression Screening Never done Anxiety Screening Never done DTaP,Tdap,Td Vaccine(1 - Tdap) Never done Shingrix Vaccine(1 of 2) Never done RSV Vaccine(1 - Risk 60-74 years 1-dose series) Never done Pneumococcal Vaccine: 65+(3 of 3 - PPSV23 or PCV20) due on 05/02/2023 Advance Directive Discussion due on 07/15/2023 Covid-19 Vaccine(2023- season) due on 03/15/2024 Influenza Vaccine(1) due on 03/15/2024 Diabetic Foot Exam due on 04/02/2024 WHAT YOU CAN DO TO PREVENT FALLS Many falls can be prevented. By making some changes, you can lower your chances of falling. Four things YOU can do to prevent falls for you* and your caregiver 1. Begin a regular exercise program Exercise is one of the most important ways to lower your chances of falling. It makes you stronger and helps you feel better. Exercises that improve balance and coordination (like Miguelito Chi) are the most helpful. Lack of exercise leads to weakness and increases your chances of falling. Ask your doctor or health care provider about the best type of exercise program for you. 2. Have your health care provider review your medicines Have your doctor or pharmacist review all the medicines you take, even [id number] medicines. As you get older, the way medicines work in your body can change. Some medicines, or combinations of medicines, can make you sleepy or dizzy andcan cause you to fall. 3. Have your vision checked Have your eyes checked by an eye doctor at least once a year. You may be wearing the wrong glasses or have a condition like glaucoma or cataracts that limits your vision. Poor vision can increase your chances of falling. 4. Make your home safer About half of all falls happen at home. To make your home safer: Remove things you can trip over (like papers, books, clothes, and shoes) from stairs and places where you walk. Remove small throw rugs or use double-sided tape to keep the rugs from slipping. Keep items you use often in cabinets you can reach easily without using a step stool. Have grab bars put in next to your toilet and in the tub or shower. Use non-slip mats in the bathtub and on shower floors. Improve the lighting in your home. As you get older, you need brighter lights to see well. Hang light-weight curtains or shades to reduce glare. Have handrails and lights put in on all staircases. Wear shoes both inside and outside the house. Avoid going barefoot or wearing slippers. For more information, contact: Centers for Disease Control and Prevention www.cdc.gov/injury * This information may not apply if you have certain medical conditions. documented in this encounterTrinity [facility]09-24-[facility]24 History of Present illness Narrative* Rick Sow MD - 04/07/2024 10:40 AM EDT Images from the original note were not included. Mary Aguiar is a 68 year old male here for a Medicare wellness visit. Medicare Health Risk Assessment General Health Good Exercise: Minutes/Day 40 min Exercise: Days/Week 5 days Alcohol: Daily Use Never Alcohol: Drinks/Day Patient does not drink Alcohol: 6 or more drinks Never Feel off balance No Concerns: Teeth/Dentures No Concerns: Sexual function No Troubled by feelings None of the above Frequency: Eating healthy diet Nearly every day ADLs requiring help None of the above Safety precautions in home/vehicle No Smoke, vape, chews tobacco No Difficulty hearing No Difficulty seeing No Current Providers Specialists: I have reviewed specialist-related care of the patient in the medical record. Current care team: Patient Care Team: Rick Sow MD as PCP - General (Family Medicine) Optho Medical/Family history review Reviewed and updated problem list, medical/surgical/family/social history, medications, and allergies. Opioid use review Opioid Medications (last 90 days) No data to display Anxiety/Depression screening PHQ-2 Score: 0 (Lower risk for depression) Recommendation: no further intervention at this time Cognitive screening Score: 5 Cognitive screening reviewed and No further action needed (score 3-5). Functional Observation Was the patient's Timed Up & Go test unsteady or >= 12 seconds? No Advance Care Planning Patient did not wish or was not able to name a surrogate decision maker or provide an advance care plan Measurements BP 124/60 (BP Site: Left Arm, BP Position: Sitting, BP Cuff Size: Large Adult) Pulse (!) 53 Resp 16 Ht 182.9 cm (6') Wt (!) 154.2 kg (340 lb) BMI 46.11 kg/m Vision Screening: Follows with optometry/ophthalmology Assessment/Plan Medicare annual wellness visit, subsequent (Z00.00) - Counseled on healthy diet and regular exercise - Fall avoidance information provided - Personalized prevention plan provided See below Chief Complaint Patient presents with: Medicare Wellness Exam HPI Mary Aguiar is a 68 year old male who presents here today for Chronic Medical Conditions. andMedicare Annual Visit. Patient with hx of HTN, DM2, hyperlipidemia, former smoker, obesity, CATHERINE, rosacea, OA, nenita insufficiency, and those as below. Ref Range & Units 6 d ago (04/01/24) 6 mo ago (09/28/23) 1 yr ago (03/22/23) 1 yr ago (09/19/22) 2 yr ago (03/21/22) 2 yr ago (11/29/21) 2 yr ago (07/28/21) Hemoglobin A1C 4.3 - 5.6 % 6.6 High 7.4 High CM 7.3 High CM 6.9 High CM 7.6 High CM 7.5 High CM 8.0 High Patient sees Ophthalmology. Dr. Avendano, last visit 01/2024 Patient has been doing ok. Has been having some low BS's since he started the Actos. He has also gained some weight. At [facility] on 01/23/2024: A1c was 6.2% Past medical history, appointments, medications, allergies reviewed. [...] External hemorrhoids without mention of complication 03/08/2005 Family history of pancreatic cancer 04/02/2023 sister Foot callus 04/02/2023 Generalized osteoarthrosis, unspecified site 03/08/2005 History of colonic polyps 10/13/2007 Hyperlipidemia, mixed 07/14/2010 Internal hemorrhoids without mention of complication 03/08/2005 Morbid obesity with BMI of 40.0-44.9, adult ([facility]) 07/06/2010 Palpitations 11/29/2021 Has had for many years Personal history of colonic polyps 2018 Plantar fasciitis 05/02/2018 Proteinuria due to type 2 diabetes mellitus ([facility]) ([facility]) 05/15/2021 Rosacea 03/11/2021 Sleep apnea 09/01/2007 Not using CPAP Stasis dermatitis 07/07/2011 Type 2 diabetes mellitus without complication, without long-term current use of insulin ([facility]) 02/11/2016 Uncontrolled type 2 diabetes mellitus with hyperglycemia ([facility]) 07/28/2021 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 Venous (peripheral) insufficiency 03/08/2005 Previous Surgical History PAST SURGICAL HISTORY Procedure Laterality Date CHOLECYSTECTOMY 2002 Cholecystectomy COLONOSCOPY FLX DX W/COLLJ SPEC WHEN PFRMD 11-21-07 COLONOSCOPY FLX DX W/COLLJ SPEC WHEN PFRMD 06/13/2018 [facility]-Michael De Anda--Repeat 5 years COLSC FLX W/RMVL OF TUMOR POLYP LESION SNARE TQ 04-23-13 DEBRIDEMENT SUBCUTANEOUS TISSUE 20 SQ CM/< Left 06/27/15 Debridement UIQ left breast infected glenny cyst ENDOVENOUS LASER, 1ST VEIN 11/16/2014 [facility] - see scanned documents ENDOVENOUS LASER, 1ST VEIN 06/05/2015 [facility] - right great saphenous vein NEUROPLASTY &/TRANSPOS MEDIAN NRV CARPAL TUNNE Carpal tunnel decomp, right STRESS TEST EXERCISE 09/21/2013 Exercise Myocardial Perfusion Stress test TONSILLECTOMY HX under age 12 Family History FAMILY HISTORY Problem Relation Age of Onset Heart Mother CHF, DM Diabetes Mother Cancer Father lung Hypertension Sister Pancreatic Cancer Sister Hypertension Brother COPD Brother Patient Allergies ALLERGIES Allergen Reactions Farxiga [Dapagliflo* Other: See Comments tachycardi and felt poorly on it. Lisinopril Cough Current Medications Current Outpatient Medications on File Prior to Visit Medication Sig pioglitazone (ACTOS) 30 mg tablet Take 1 tablet by mouth once daily. metFORMIN (GLUCOPHAGE) 1,000 mg tablet Take 1 tablet by mouth two times a day with meals. amLODIPine (NORVASC) 10 mg tablet Take 1 tablet by mouth once daily. atorvastatin (LIPITOR) 20 mg tablet Take 1 tablet by mouth once daily. For cholesterol. glimepiride (AMARYL) 4 mg tablet Take 1 tab twice a day. hydroCHLOROthiazide 25 mg tablet Take 1 tablet by mouth once daily. losartan (COZAAR) 50 mg tablet Take 2 tablets by mouth once daily. blood sugar diagnostic (BLOOD GLUCOSE TEST) test [...] by mouth once daily. Take with food. Meridian-3 Fatty Acids-Vitamin E (FISH OIL) 1,000 mg cap Take 1 capsule by mouth once daily. MULTI-VITAMIN ORAL Take by mouth. No current facility-administered medications on file prior to visit. Social History Social History Tobacco Use Smoking status: Former Current packs/day: 0.00 Average packs/day: 0.5 packs/day for 30.0 years (15.0 ttl pk-yrs) Types: Cigarettes Start date: 01/16/1980 Quit date: 01/15/2010 Years since quittin.2 Smokeless tobacco: Former Quit date: 05/03/2011 Vaping Use Vaping status: Never Used Substance Use Topics Alcohol use: Yes Comment: very rarely Drug use: No Review of Symptoms REVIEW OF SYSTEMS GENERAL: No weight loss, malaise or fevers HEENT: Negative for frequent or significant headaches, No changes in hearing or vision, no nose bleeds or other nasal problems NECK: Negative for lumps, goiter, pain and significant neck swelling RESPIRATORY: Negative for cough, hemoptysis, wheezing, COPD, dyspnea or shortness of breath CARDIOVASCULAR: Negative for chest pain, increased leg swelling, hypertension, CHF or palpitations GI: No nausea, vomiting, or diarrhea, No heartburn or reflux symptoms, and no blood other than his hemorrhoids. : No history of dysuria, frequency or blood MUSCULOSKELETAL: Negative for new or increased joint pain or swelling, back pain or muscle pain SKIN: Negative for lesions, rash, and itching PSYCH: Negative for sleep disturbance, mood disorder and recent psychosocial stressors HEMATOLOGY/LYMPHOLOGY: Negative for prolonged bleeding, bruising easily or swollen nodes ENDOCRINE: Negative for cold or heat intolerance. Some low BS's since being on the Actos 30 mg a dayabout 1-2 times a week. NEURO: No history of headaches, syncope, paralysis, seizures or tremors EXAM: BP 124/60 (BP Site: Left Arm, BP Position: Sitting, BP Cuff Size: Large Adult) Pulse (!) 53 Resp 16 Ht 182.9 cm (6') Wt (!) 154.2 kg (340 lb) BMI 46.11 kg/m Last 5 Encounter Wt Readings: Date: Wt: 04/07/2024 154.2 kg (340 lb) 10/01/2023 150.1 kg (331 lb) 04/02/2023 148.3 kg (327 lb) 09/25/2022 147 kg (324 lb) 03/28/2022 149.7 kg (330 lb) General Appearance: Well appearing, alert, in no acute distress, well-hydrated, well nourished. andMorbidly obese. Skin: sees derm. Head: Normocephalic, no masses, lesions, tenderness or abnormalities. Eyes: Anicteric sclera. Pupils are equally round and reactive to light. Extraocular movements are intact. . Ears: External ears, TM's normal, canals clear. Nose/Sinuses: Nares normal, septum midline, mucosa normal, no drainage or sinus tenderness. Oropharynx: Lips, [...] or cyanosis. Good capillary refill. . Musculoskeletal: Muscular strength intact, No joint swelling, deformity, or tenderness. Peripheral Pulses: Normal. Neurologic: Gait normal. Reflexes normal and symmetric. Sensation to light touch and crainal nerves2-12 intact.. Genitalia: Normal, Penis normal. No urethral discharge. Scrotum normal to palpation. No hernia.. Rectal: declined.. Diabetic Foot Exam: Feet: Shoes and socks removed, normal distal pulses, sensitive to 10 gm microfilament, vibratory exam within normal limits, and calluses noted bilaterally Skin: warm and dry Vascular Pulses: Normal SEMMES-FRANCY MONOFILAMENT TESTING Left Foot Right Foot Dorsal Surface Intact Dorsal Surface Intact Plantar Surface Intact Plantar Surface Intact Health Maintenance List Depression Screening Never done Anxiety Screening Never done DTaP,Tdap,Td Vaccine(1 - Tdap) Never done Shingrix Vaccine(1 of 2) Never done RSV Vaccine(1 - Risk 60-74 years 1-dose series) Never done Pneumococcal Vaccine: 65+(3 of 3 - PPSV23 or PCV20) due on 05/02/2023 Advance Directive Discussion due on 07/15/2023 Covid-19 Vaccine(2023- season) due on 03/15/2024 Influenza Vaccine(1) due on 03/15/2024 Diabetic Foot Exam due on 04/02/2024 HbA1C due on 09/29/2024 Annual PCP Team Chronic Disease Visit due on 09/30/2024 BP Controlled (<130/80) due on 09/30/2024 Dilated Retinal Exam due on 01/13/2025 Urine Albumin:Creatinine Ratio due on 04/01/2025 LDL Cholesterol due on 04/01/2025 Colorectal Cancer Screening due on 07/11/2028 Abdominal Aortic Aneurysm Screening Completed Hepatitis C Screening Discontinued Data reviewed Latest Ref Rng 03/22/2023 04/12/2023 09/28/2023 04/01/2024 WBC 3.70 - 11.00 k/uL 6.23 RBC 4.20 - 6.00 m/uL 4.96 Hemoglobin 13.0 - 17.0 g/dL 14.1 Hematocrit 39.0 - 51.0 % 45.4 MCV 80.0 - 100.0 fL 91.5 MCH 26.0 - 34.0 pg 28.4 MCHC 30.5 - 36.0 g/dL 31.1 RDW-CV 11.5 - 15.0 % 13.6 Platelet Count 150 - 400 k/uL 224 MPV 9.0 - 12.7 fL 10.5 Neut% % 54.5 Abs Neut (ANC) 1.45 - 7.50 k/uL 3.39 Lymph% % 35.3 Abs Lymph 1.00 - 4.00 k/uL 2.20 Sherman% % 5.9 Abs Sherman <0.87 k/uL 0.37 Eosin% % 3.4 Abs Eosin <0.46 k/uL 0.21 Baso% % 0.6 Abs Baso <0.11 k/uL 0.04 Immature Gran % % 0.3 IMMATURE GRANS (ABS) <0.10 k/uL <0.03 NRBC /100 WBC 0.0 Absolute nRBC <0.01 k/uL <0.01 DTYPE Auto Color Yellow Light Yellow Yellow Clarity Clear Clear Clear Glucose, Urine Negative Negative Negative Bilirubin, Urine Negative Negative Negative Ketones, Urine Negative Negative Negative Specific [place], Ur 1.005 - 1.030 1.018 1.022 Hemoglobin/Blood,Ur Negative Negative Negative pH, Urine <8.5 6.0 6.0 Protein, Urine Negative Trace 1+ ! Urobilinogen 0.2-1.0 EU/dL Negative 0.2 EU/dL Nitrites Negative Negative Negative Leukest Negative Negative Negative WBC, Urine 0-5 /HPF 0-5 /HPF 0-5 /HPF RBC, Urine 0-2 /HPF 0-3 /HPF 0-2 /HPF Bacteria Negative /HPF Negative Epithelial Cells /HPF Few None Seen Hyaline Cast 0 /LPF 0 /LPF Protein, Total 6.3 - 8.0 g/dL 7.5 7.1 Albumin 3.9 - 4.9 g/dL 4.5 4.3 Calcium 8.5 - 10.2 mg/dL 9.5 9.4 9.5 Bilirubin, Total 0.2 - 1.3 mg/dL 0.6 0.6 Alkaline Phosphatase 38 - 113 U/L 46 46 AST 14 - 40 U/L 23 19 ALT 10 - 54 U/L 23 16 Glucose 74 - 99 mg/dL 149 (H) 132 (H) 158 (H) BUN 9 - 24 mg/dL 17 18 20 Creatinine 0.73 - 1.22 mg/dL 1.26 (H) 1.21 1.04 1.06 Sodium 136 - 144 mmol/L 139 141 139 Potassium 3.7 - 5.1 mmol/L 4.5 4.5 4.2 Chloride 98 - 107 mmol/L 100 100 100 CO2 22 - 30 mmol/L 26 29 27 Anion Gap 8 - 15 mmol/L 13 12 12 eGFR >=60 mL/min/1.73m 62 65 78 75 Total Cholesterol, Nonfasting <200 mg/dL 120 113 107 Triglycerides, Nonfasting <150 mg/dL 146 152 (H) 107 HDL Cholesterol, Nonfasting >39 mg/dL 37 (L) 36 (L) 38 (L) LDL Cholesterol, Nonfasting <100 mg/dL 54 47 48 Non HDL Cholesterol, Nonfasting <130 mg/dL 83 77 69 VLDL Cholesterol, Nonfasting <30 mg/dL 29 30 (H) 21 Total Chol/HDL Ratio, Nonfasting <5.10 mg/dL 3.24 3.14 2.82 LDL/HDL Ratio, Nonfasting <2.54 mg/dL 1.46 1.31 1.26 Creatinine, Ur Random (UCRR) 20.0 - 300.0 mg/dL 119.6 67.6 139.5 Albumin, Urine Random mg/L 75.6 60.3 102.7 Albumin/Creat Ratio <30 mg/g 63 (H) 89 (H) 74 (H) Hemoglobin A1C 4.3 - 5.6 % 7.3 (H) 7.4 (H) 6.6 (H) Estimated Average Glucose mg/dL 163 166 143 PSA <2.60 ng/mL 0.71 0.86 A/P ASSESSMENT/PLAN: 1. Medicare annual wellness visit, subsequent - ICD9: V70.0, ICD10: Z00.00 (primary diagnosis) - Counseled on healthy diet and regular exercise - Discussed need for and benefit of weight loss. BMI 46.11 kg/(m^2) - Patient counseled on and acknowledged vaccine benefits/risks/side effects; VIS provided: Pneumococcal - Follow up for annual exam in one year 2. Type 2 diabetes mellitus without complication, without long-term current use of insulin (HCC) - ICD9: 250.00, ICD10: E11.9 - Controlled - Continue current medications - Decrease pioglitazone to 15 mg a day. - Counseled on healthy diet and regular exercise - Discussed need for and benefit of weight loss. BMI 46.11 kg/(m^2) - METFORMIN 1,000 MG TABLET 3. Diabetic eye exam (HCC) - ICD9: V72.0, 250.00, ICD10: Z01.00, E11.9 - up to date 4. Essential hypertension, benign - ICD9: 401.1, ICD10: I10 - Controlled - Continue current medications - Recommend home blood pressure monitoring, to bring results to next visit - Encouraged sodium restriction, DASH or Mediterranean diet - Recommend regular aerobic exercise - Discussed need for and benefit of weight loss. BMI 46.11 kg/(m^2) - AMLODIPINE 10 MG TABLET - HYDROCHLOROTHIAZIDE 25 MG TABLET 5. Hyperlipidemia, mixed - ICD9: 272.2, ICD10: E78.2 - Controlled - Continue current medications - Counseled on healthy diet and regular exercise - Discussed need for and benefit of weight loss. BMI 46.11 kg/(m^2) 6. 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) ([facility]) - ICD9: 250.40, 791.0, ICD10: E11.29, R80.9 - Controlled - see above. 7. Morbid obesity with BMI of 40.0-44.9, adult ([facility]) - ICD9: 278.01, V85.41, ICD10: E66.01, Z68.41 Weight increasing - Behavioral intervention 8. Stasis dermatitis - ICD9: 454.1, ICD10: I87.2 - stable no changes. 9. Varicose veins of both lower extremities, unspecified whether complicated - ICD9: 454.9, ICD10: I83.93 - stable no changes. 10. Venous (peripheral) insufficiency - ICD9: 459.81, ICD10: I87.2 - stable. 11. Benign prostatic hyperplasia with urinary frequency - ICD9: 600.01, 788.41, ICD10: N40.1, R35.0 - stable 12. Foot callus - ICD9: 700, ICD10: L84 - discussed care to reduce risk of ulcers. - lac hydrin for the dry skin on his feet/heels. 13. Advance directive discussed with patient - ICD9: V65.49, ICD10: Z71.89 - needs to bring in copies. 14. Encounter for immunization - ICD9: V03.89, ICD10: Z23 - PNEUMOCOCCAL VACCINE, 20 VALENT (PREVNAR 20): given 15. Screening for depression - ICD9: V79.0, ICD10: Z13.31 - DEPRESSION SCREENING 16. Encounter for screening examination for other mental health and behavioral disorders - ICD9: V79.8, ICD10: Z13.39 - ANXIETY SCREENING Requested Prescriptions Signed Prescriptions Disp Refills amLODIPine (NORVASC) 10 mg tablet 90 tablet 1 Sig: Take 1 tablet by mouth once daily. atorvastatin (LIPITOR) 20 mg tablet 90 tablet 1 Sig: Take 1 tablet by mouth once daily. For cholesterol. glimepiride (AMARYL) 4 mg tablet 180 tablet 1 Sig: Take 1 tab twice a day. hydroCHLOROthiazide 25 mg tablet 90 tablet 1 Sig: Take 1 tablet by mouth once daily. losartan (COZAAR) 50 mg tablet 180 tablet 1 Sig: Take 2 tablets by mouth once daily. metFORMIN (GLUCOPHAGE) 1,000 mg tablet 180 tablet 1 Sig: Take 1 tablet by mouth two times a day with meals. pioglitazone (ACTOS) 15 mg tablet 90 tablet 1 Sig: Take 1 tablet by mouth once daily. ammonium lactate (LAC-HYDRIN) 12 % cream 385 g 1 Sig: Apply to affected area as needed. F/u 6 months routine. Check Lipid, A1c, Alb prior F/u sooner for low back pain. I spent a total of 40 minutes on the date of the service which included preparing to see the patient, [id number] patient care, completing clinical documentation, performing a medically appropriate examination, counseling and educating the patient/family/caregiver and ordering medications, tests, or procedures. Rick Sow MD documented in this encounterTr[facility]24 NoteHNO ID: [id number] Author: RICK SOW MD Service: ? Author Type: Physician Type: Progress Notes Filed: 04/07/2024 14:48 Note Text: Mary Aguiar is a 68 year old male here for a Medicare wellness visit. Medicare Health Risk Assessment General Health Good Exercise: Minutes/Day 40 min Exercise: Days/Week 5 days Alcohol: Daily Use Never Alcohol: Drinks/Day Patient does not drink Alcohol: 6 or more drinks Never Feel off balance No Concerns: Teeth/Dentures No Concerns: Sexual function No Troubled by feelings None of the above Frequency: Eating healthy diet Nearly every day ADLs requiring help None of the above Safety precautions in home/vehicle No Smoke, vape, chews tobacco No Difficulty hearing No Difficulty seeing No Current Providers Specialists: I have reviewed specialist-related care of the patient in the medical record. Current care team: Patient Care Team: Rick Sow MD as PCP - General (Family Medicine) Optho Medical/Family history review Reviewed and updated problem list, medical/surgical/family/social history, medications, and allergies. Opioid use review Opioid Medications (last 90 days) No data to display Anxiety/Depression screening PHQ-2 Score: 0 (Lower risk for depression) Recommendation: no further intervention at this time Cognitive screening Score: 5 Cognitive screening reviewed and No further action needed (score 3-5). Functional Observation Was the patient's Timed Up AND Go test unsteady or >= 12 seconds? No Advance Care Planning Patient did not wish or was not able to name a surrogate decision maker or provide an advance care plan Measurements BP 124/60 (BP Site: Left Arm, BP Position: Sitting, BP Cuff Size: Large Adult) Pulse (!) 53 Resp 16 Ht 182.9 cm (6') Wt (!) 154.2 kg (340 lb) BMI 46.11 kg/m? Vision Screening: Follows with optometry/ophthalmology Assessment/Plan Medicare annual wellness visit, subsequent (Z00.00) - Counseled on healthy diet and regular exercise - Fall avoidance information provided - Personalized prevention plan provided See below Chief Complaint Patient presents with: Medicare Wellness Exam HPI Mary Aguiar is a 68 year old male who presents here today for Chronic Medical Conditions. and Medicare Annual Visit. Patient with hx of HTN, DM2, hyperlipidemia, former smoker, obesity, CATHERINE, rosacea, OA, nenita insufficiency, and those as below. Ref Range AND Units 6 d ago (04/01/24) 6 mo ago (09/28/23) 1 yr ago (03/22/23) 1 yr ago (09/19/22) 2 yr ago (03/21/22) 2 yr ago (11/29/21) 2 yr ago (07/28/21) Hemoglobin A1C 4.3 - 5.6 % 6.6 High 7.4 High CM 7.3 High CM 6.9 High CM 7.6 High CM 7.5 High CM 8.0 High Patient sees Ophthalmology. Dr. Avendano, last visit 01/2024 Patient has been doing ok. Has been having some low BS's since he started the Actos. He has also gained some weight. At [facility] on 01/23/2024: A1c was 6.2% Past medical history, appointments, medications, allergies reviewed. [...] External hemorrhoids without mention of complication 03/08/2005 Family history of pancreatic cancer 04/02/2023 sister Foot callus 04/02/2023 Generalized osteoarthrosis, unspecified site 03/08/2005 History of colonic polyps 10/13/2007 Hyperlipidemia, mixed 07/14/2010 Internal hemorrhoids without mention of complication 03/08/2005 Morbid obesity with BMI of 40.0-44.9, adult ([facility]) 07/06/2010 Palpitations 11/29/2021 Has had for many years Personal history of colonic polyps 2018 Plantar fasciitis 05/02/2018 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) ([facility]) 05/15/2021 Rosacea 03/11/2021 Sleep apnea 09/01/2007 Not using CPAP Stasis dermatitis 07/07/2011 Type 2 diabetes mellitus without complication, without long-term current use of insulin ([facility]) 02/11/2016 Uncontrolled type 2 diabetes mellitus with hyperglycemia ([facility]) 07/28/2021 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 Venous (peripheral) insufficiency 03/08/2005 Previous Surgical History PAST SURGICAL HISTORY Procedure Laterality Date CHOLECYSTECTOMY 2002 Cholecystectomy COLONOSCOPY FLX DX W/COLLJ SPEC WHEN PFRMD 5-9-08 COLONOSCOPY FLX DX W/COLLJ SPEC WHEN PFRMD 06/13/2018 [facility]--Repeat 5 years COLSC FLX W/RMVL OF TUMOR POLYP LESION SNARE TQ 04-23-13 DEBRIDEMENT SUBCUTANEOUS TISSUE 20 SQ CM/< Left 06/27/15 Debridement UIQ (more content not included)...[facility] 01-23-2024 History of Present illness Narrative* Tiffani Muñoz LPN - 01/23/2024 2:56 PM EDT Scan on 01/21/2024 8:03 AM by Provider, External, KENNA: Consultation - Ophthalmology documented in this encounterTr[facility]05-23-2024 Telephone encounter Note * Telephone Encounter - Renee Little - 12/05/2023 12:27 PM EDT Patient has been identified by name and date of : Yes, Provider Dr. Sow Date 12-05-23 Time 12:29P Patient phones for refill(s): Requested Prescriptions Pending Prescriptions Disp Refills pioglitazone (ACTOS) 30 mg tablet 90 tablet 1 Sig: Take 1 tablet by mouth once daily. Date of last office visit in primary care: 10/01/2023 Date of next office visit in primary care: 04/07/2024 Patient needs it sent to [facility] where it was sent. Please advise. Thank you. Renee Rader. [facility] Work Phone: [phone] Miscellaneous Notes* Telephone Encounter - Renee Little - 12/05/2023 12:27 PM EDT Patient has been identified by name and date of : Yes, Provider Dr. Juanjose Rivera 12-05-23 Time 12:29P Patient phones for refill(s): Requested Prescriptions Pending Prescriptions Disp Refills pioglitazone (ACTOS) 30 mg tablet 90 tablet 1 Sig: Take 1 tablet by mouth once daily. Date of last office visit in primary care: 10/01/2023 Date of next office visit in primary care: 04/07/2024 Patient needs it sent to [facility] where it was sent. Please advise. Thank you. Renee Rader. documented in this encounterTr[facility]04-17-2024 History of Present illness Narrative* Tanner Eric RN - 10/30/2023 10:02 AM EDT DIABETES CARE AND EDUCATION VISIT Location: [place] Type of visit: In person individual PATIENT'S MAIN CONCERN TODAY: A1c is elevated Support person present for education today: spouse Cognitive ability: Alert and oriented Motivation to learn: Interested Learning barriers identified by educator: none Method of instruction: written, verbal, and demonstration DIABETES FINDINGS: Monitoring: Checking fasting, in goal range of 80-130mg/dL Meal Planning: Reviewed basic meal planning - tends to be two meals per day Medications: reviewed home meds, taking glucophage and actos Problem Solving:when to report sugars to physician for additional assistance reviewed Physical Activity: benefits reviewed Reducing Risks: importance of maintaining good control to avoid complications was reviewed HANDOUTS: Healthy You: Survival Skills and Healthy You: Planning Healthy Meals LEARNING RESPONSE: Healthy eating: Demonstrated understanding/competency today or at previous visit Being active: Demonstrated understanding/competency today or at previous visit Taking medications: Demonstrated understanding/competency today or at previous visit POSSIBLE FUTURE TOPICS: 1. DIABETES CARE AND EDUCATION PLAN: Individual follow-up Time Spent (Minutes): 30 This visit note will be communicated to the healthcare provider via access to shared medical record. SIGNATURE: Tanner Eric RN PATIENT NAME: Mary Aguiar DATE: October 30, 2023 TIME: 10:02 AM documented in this encounterTrinity [facility]03-20-2024 Miscellaneous Notes* Telephone Encounter - Farzana Kelly PA-C - 10/02/2023 9:48 AM EDT noted * Telephone Encounter - Janny Alamo LPN - 10/02/2023 9:43 AM EDT Spoke with pt regarding Farzana's message. Pt advises that he is agreeable to restart medication. Pt will use what he has at home. Pt will contact office if he has any issues with this medication. Janny Alamo LPN * Telephone Encounter - Farzana Kelly PA-C - 10/02/2023 9:14 AM EDT Noted. We don't have anything in the chart documented for when they called the 2nd time. If he is absolutely positive that the actos made him feel bad, then he doesn't have to try it again. Let me know what he prefers. Farzana Kelly PA-C * Telephone Encounter - Kenia Mujica LPN - 10/02/2023 8:55 AM EDT Below message was sent in [facility] [place] this morning: Good morning Farzana, We have FARXIGA 5 MG & ACTOS 30 MG at home. Taiwo tried Farxiga first and it caused him chest tightness and shortness of breathe. Then on 05/29/23 he started ACTOS. About a week later he started having the shortness of breathe and a tightness in his chest. That is when we called in to Dr. Rodriguez. Taiwo says he will give the Actos another try. We will keep you posted. documented in this encounterTr[facility]03-20-2024 Miscellaneous Notes* Telephone Encounter - Janny Alamo LPN - 10/02/2023 9:47 AM EDT Spoke with pt regarding this message. See TE. Janny Alamo LPN documented in this encounterTrinity [facility]03-19-2024 Instructions* Patient Instructions* Farzana Kelly PA-C - 10/01/2023 10:36 AM EDT Please check at home to make sure it was the pioglitazone that caused problems. Please call us withthis information later today or tomorrow. Start checking blood sugars 2 hours after a meal. Can switch up each day. documented in this encounterTrinity [facility]03-19-2024 History of Present illness Narrative* Farzana Kelly PA-C - 10/01/2023 10:26 AM EDT Chief Complaint Patient presents with: 6 Month Exam HPI Mary Aguiar is a 67 year old male who presents here today for Chronic Medical Conditions.. Patient with hx of HTN, DM2, hyperlipidemia, former smoker, obesity, CATHERINE, rosacea, OA, nenita insufficiency, and those as below. Patient overall doing okay. Patient was unable to tolerate farxiga and called in to report that. Was started on actos but patient states he didn't tolerate that either. They thought they called inabout this but nothing in chart is documented about this. Home fasting glucose averages 100-140. Reports occasional low blood sugar prior to meals. Doesn't routinely check post prandial readings. Past medical history, appointments, medications, allergies reviewed. [...] External hemorrhoids without mention of complication 03/08/2005 Family history of pancreatic cancer 04/02/2023 sister Foot callus 04/02/2023 Generalized osteoarthrosis, unspecified site 03/08/2005 History of colonic polyps 10/13/2007 Hyperlipidemia, mixed 07/14/2010 Internal hemorrhoids without mention of complication 03/08/2005 Morbid obesity with BMI of 40.0-44.9, adult ([facility]) 07/06/2010 Palpitations 11/29/2021 Has had for many years Personal history of colonic polyps 2018 Plantar fasciitis 05/02/2018 Proteinuria due to type 2 diabetes mellitus ([facility]) ([facility]) 05/15/2021 Rosacea 03/11/2021 Sleep apnea 09/01/2007 Not using CPAP Stasis dermatitis 07/07/2011 Type 2 diabetes mellitus without complication, without long-term current use of insulin ([facility]) 02/11/2016 Uncontrolled type 2 diabetes mellitus with hyperglycemia ([facility]) 07/28/2021 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 Venous (peripheral) insufficiency 03/08/2005 Previous Surgical History PAST SURGICAL HISTORY Procedure Laterality Date CHOLECYSTECTOMY 2002 Cholecystectomy COLONOSCOPY FLX DX W/COLLJ SPEC WHEN PFRMD 11-21-07 COLONOSCOPY FLX DX W/COLLJ SPEC WHEN PFRMD 06/13/2018 [facility]-Michael De Anda--Repeat 5 years COLSC FLX W/RMVL OF TUMOR POLYP LESION SNARE TQ 04-23-13 DEBRIDEMENT SUBCUTANEOUS TISSUE 20 SQ CM/< Left 06/27/15 Debridement UIQ left breast infected glenny cyst ENDOVENOUS LASER, 1ST VEIN 11/16/2014 [facility] - see scanned documents ENDOVENOUS LASER, 1ST VEIN 06/05/2015 [facility] - right great saphenous vein NEUROPLASTY &/TRANSPOS MEDIAN NRV CARPAL TUNNE Carpal tunnel decomp, right STRESS TEST EXERCISE 09/21/2013 Exercise Myocardial Perfusion Stress test TONSILLECTOMY HX under age 12 Family History FAMILY HISTORY Problem Relation Age of Onset Heart Mother CHF, DM Diabetes Mother Cancer Father lung Hypertension Sister Pancreatic Cancer Sister Hypertension Brother COPD Brother Patient Allergies ALLERGIES Allergen Reactions Farxiga [Dapagliflo* Other: See Comments tachycardi and felt poorly on it. Lisinopril Cough Current Medications Current Outpatient Medications on File Prior to Visit Medication Sig amLODIPine (NORVASC) 10 mg tablet Take 1 tablet by mouth once daily. atorvastatin (LIPITOR) 20 mg tablet Take 1 tablet by mouth once daily. For cholesterol. glimepiride (AMARYL) 4 mg tablet Take 1 tab twice a day. hydroCHLOROthiazide 25 mg tablet Take 1 tablet by mouth once daily. losartan (COZAAR) 50 mg tablet Take 2 tablets by mouth once daily. metFORMIN (GLUCOPHAGE) 1,000 mg tablet Take 1 tablet by mouth two times a day with meals. blood sugar diagnostic (BLOOD GLUCOSE [...] by mouth once daily. Take with food. Meridian-3 Fatty Acids-Vitamin E (FISH OIL) 1,000 mg cap Take 1 capsule by mouth once daily. MULTI-VITAMIN ORAL Take by mouth. pioglitazone (ACTOS) 30 mg tablet Take 1 tablet by mouth once daily. No current facility-administered medications on file prior [...] pain, leg swelling, hypertension, CHF or palpitations EXAM: BP 118/70 (BP Site: Left Arm, BP Position: Sitting, BP Cuff Size: Large Adult) Pulse 62 Temp 36.3 C (97.4 F) Resp 18 Wt (!) 150.1 kg (331 lb) BMI 43.87 kg/m General Appearance: Well appearing, alert, in no acute distress, well-hydrated, well nourished. andMorbidly obese. Neck: Supple, no adenopathy; thyroid symmetric, normal size, no bruits. Lungs: Lungs clear to auscultation. No wheezing, rhonchi, rales.. Heart: RRR without murmur, gallop, or rubs. No ectopy. Extremities: No deformities, edema, skin discoloration, clubbing or cyanosis. Good capillary refill. . Peripheral Pulses: Normal. Health Maintenance List RSV Vaccine(1 - 1-dose 60+ series) Never done Advance Directive Discussion due on 07/15/2023 Depression Assessment due on 07/15/2023 DTaP,Tdap,Td Vaccine(1 - Tdap) due on 04/02/2024 Shingrix Vaccine(1 of 2) due on 04/02/2024 Pneumococcal Vaccine: 65+(3 of 3 - PPSV23 or PCV20) due on 04/02/2024 Dilated Retinal Exam due on 01/11/2024 HbA1C due on 03/30/2024 Diabetic Foot Exam due on 04/02/2024 Annual PCP Team Chronic Disease Visit due on 04/02/2024 BP Controlled (<130/80) due on 04/02/2024 Urine Albumin:Creatinine Ratio due on 09/27/2024 LDL Cholesterol due on 09/27/2024 Colorectal Cancer Screening due on 07/11/2028 Abdominal Aortic Aneurysm Screening Completed Influenza Vaccine Completed Covid-19 Vaccine Completed Hepatitis C Screening Discontinued Data reviewed Latest Ref Rng 09/28/2023 Glucose 74 - 99 mg/dL 132 (H) BUN 9 - 24 mg/dL 18 Creatinine 0.73 - 1.22 mg/dL 1.04 Sodium 136 - 144 mmol/L 141 Potassium 3.7 - 5.1 mmol/L 4.5 Chloride 97 - 105 mmol/L 100 CO2 22 - 30 mmol/L 29 Anion Gap 9 - 18 mmol/L 12 Calcium 8.5 - 10.2 mg/dL 9.4 eGFR >=60 mL/min/1.73m 78 Total Cholesterol, Nonfasting <200 mg/dL 113 Triglycerides, Nonfasting <150 mg/dL 152 (H) HDL Cholesterol, Nonfasting >39 mg/dL 36 (L) LDL Cholesterol, Nonfasting <100 mg/dL 47 Non HDL Cholesterol, Nonfasting <130 mg/dL 77 VLDL Cholesterol, Nonfasting <30 mg/dL 30 (H) Total Chol/HDL Ratio, Nonfasting <5.10 mg/dL 3.14 LDL/HDL Ratio, Nonfasting <2.54 mg/dL 1.31 Creatinine, Ur Random (UCRR) 20.0 - 300.0 mg/dL 67.6 Albumin, Urine Random mg/L 60.3 Albumin/Creat Ratio <30 mg/g 89 (H) Hemoglobin A1C 4.3 - 5.6 % 7.4 (H) Estimated Average Glucose mg/dL 166 ASSESSMENT/PLAN: 1. Type 2 diabetes mellitus without complication, without long-term current use of insulin (HCC) - ICD9: 250.00, ICD10: E11.9 (primary diagnosis) - Uncontrolled Advised patient to double check meds at home to make sure it was actos that caused him SE and to update us. Will set him up with automotive glazier. Advised him to start checking some postprandials. Need to work on balanced diet throughout diet to help decrease low and high readings. - METFORMIN 1,000 MG TABLET - HGB A1C - URINALYSIS, WITH MICROSCOPIC - COMP METABOLIC PANEL - ALBUMIN/CREAT RATIO RND UR - CBC + DIFF 2. Uncontrolled type 2 diabetes mellitus with hyperglycemia (HCC) - ICD9: 250.02, ICD10: E11.65 As above - CONSULT TO DIABETES EDUCATION DSME/MNT - HGB A1C - COMP METABOLIC PANEL - ALBUMIN/CREAT RATIO RND UR - CBC + DIFF 3. Rosacea - ICD9: 695.3, ICD10: L71.9 - METRONIDAZOLE 1 % TOPICAL GEL 4. Hyperlipidemia, mixed - ICD9: 272.2, ICD10: E78.2 - Controlled - Continue current medications - Counseled on healthy diet and regular exercise - LIPID PANEL, NONFASTING 5. Essential hypertension, benign - ICD9: 401.1, ICD10: I10 - Controlled - Continue current medications - Recommend home blood pressure monitoring, to bring results to next visit - Encouraged sodium restriction, DASH or Mediterranean diet - Recommend regular aerobic exercise 6. 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) - ICD9: 250.40, 791.0, ICD10: E11.29, R80.9 stable - CONSULT TO DIABETES EDUCATION DSME/MNT 7. Prostate disorder - ICD9: 602.9, ICD10: N42.9 - PSA/PROSTSPECAG DIAG 8. Morbid obesity with BMI of 40.0-44.9, adult (HCC) - ICD9: 278.01, V85.41, ICD10: E66.01, Z68.41 Stable - Behavioral intervention Follow up in 6 months with labs prior for wellness. Farzana Kelly PA-C documented in this encounterTrinity [facility]02-08-2024 Miscellaneous Notes* Telephone Encounter - Rick Sow MD - 08/22/2023 10:45 AM EST The following approved medication requests have been transmitted electronically. Requested Prescriptions Signed Prescriptions Disp Refills amLODIPine (NORVASC) 10 mg tablet 90 tablet 1 Sig: Take 1 tablet by mouth once daily. Authorizing Provider: RICK SOW atorvastatin (LIPITOR) 20 mg tablet 90 tablet 1 Sig: Take 1 tablet by mouth once daily. For cholesterol. Authorizing Provider: RICK SOW glimepiride (AMARYL) 4 mg tablet 180 tablet 1 Sig: Take 1 tab twice a day. Authorizing Provider: RICK SOW hydroCHLOROthiazide 25 mg tablet 90 tablet 1 Sig: Take 1 tablet by mouth once daily. Authorizing Provider: RICK SOW losartan (COZAAR) 50 mg tablet 180 tablet 1 Sig: Take 2 tablets by mouth once daily. Authorizing Provider: RICK SOW MD * Telephone Encounter - Cheryl Jackson - 08/22/2023 9:46 AM EST Patient's mail order changed to [facility] * Telephone Encounter - Cheryl Jackson - 08/22/2023 9:44 AM EST Patient has been identified by name and date of : Yes, Provider Juanjose Patient phones for refill(s): Requested Prescriptions Pending Prescriptions Disp Refills amLODIPine (NORVASC) 10 mg tablet 90 tablet 1 Sig: Take 1 tablet by mouth once daily. atorvastatin (LIPITOR) 20 mg tablet 90 tablet 1 Sig: Take 1 tablet by mouth once daily. For cholesterol. glimepiride (AMARYL) 4 mg tablet 180 tablet 1 Sig: Take 1 tab twice a day. hydroCHLOROthiazide 25 mg tablet 90 tablet 1 Sig: Take 1 tablet by mouth once daily. losartan (COZAAR) 50 mg tablet 180 tablet 1 Sig: Take 2 tablets by mouth once daily. Date of last office visit in primary care: 04/02/2023 Date of next office visit in primary care: 10/01/2023 Please advise. Thank you. Cheryl Rader. documented in this encounterTrinity [facility]12-29-2023 History of Present illness Narrative* Janny Alamo LPN - 07/12/2023 1:38 PM EST Scan on 07/12/2023 1:25 PM by Provider, KENNA Felipe: Pathology documented in this encounterTrinity [facility]12-28-2023 History and physical note Author Kishore De Anda [facility] July 11, 2023 7:47am Note Date/Time July 11, 2023 7:47am [facility] Medical Records Department [address] [place] [id number] History & Physical Exam 07/11/23 0737 MR#: [id number] Acct: [id number] Name: MARY AGUIAR Rep #:[id number] : [id number] 67 From: Kishore De Anda MD PCP: Dr. Rick Sow MD Status:[facility] Location: [place] [address] HPI - General General Date of Admission: 03/29/20 Date of Service: 07/11/23 Chief Complaint: Personal history of colon polyps HPI Narrative MARY COSME, is a 67 M who presents via open access today for surveillance colonoscopy. Previous colonoscopy was May 2018. He notes some rectal bleeding hemorrhoid pain subsequent to the bowel prep for prior to that nothing. He has no bright red blood per rectum or melena. [facility] Medical History (Updated 07/05/23 @ 15:26 by Shagufta Adair) Diabetes Dietary restriction Former smoker Heartburn Hemorrhoids High cholesterol History of stress test HTN (hypertension) Seasonal allergies Wears glasses Home Medications amlodipine 10 mg tablet 10 mg PO DAILY 04/23/13 [History Last Taken 07/02/19 06:00 10 MG] hydrochlorothiazide 25 mg tablet 25 mg PO DAILY 04/23/13 [History Last Taken Unknown] losartan 50 mg tablet 100 mg PO DAILY 04/23/13 [History Last Taken 07/02/19 06:00 100 MG] omega-3 fatty acids 300 mg capsule 300 mg PO DAILY 04/23/13 [History Last Taken 06/08/18] aspirin 81 mg tablet,delayed release 81 mg PO DAILY@0800 11/09/14 [History Last Taken 06/08/18] multivitamin with folic acid 400 mcg tablet 1 tab PO DAILY 11/09/14 [History Last Taken Unknown] atorvastatin 10 mg tablet (Lipitor) 20 mg PO DAILY 08/11/18 [History Last Taken Unknown] metformin 500 mg tablet,extended release 24 hr 1,000 mg PO BID 06/29/19 [History Last Taken Unknown] glimepiride 4 mg tablet 4 mg PO BID 07/05/23 [History Last Taken Unknown] Allergy/AdvReac Type Severity Reaction Status Date / Time dapagliflozin [From [facility]] Allergy Intermediate Chest Verified 07/11/23 07:46 tightness lisinopril AdvReac Other Verified 07/11/23 07:46 Family History Father Cancer Mother Diabetes Surgical History (Updated 07/05/23 @ 15:15 by Shagufta Adair) H/O hernia repair History of carpal tunnel release of both wrists History of cholecystectomy History of colonoscopy History of vein stripping Social History (Updated 07/22/19 @ 16:[address] Kishore De Anda MD) Smoking Status: Former smoker alcohol intake: never ROS Constitutional Constitutional: Reports systems reviewed and no addt'l complaints, except as documented Cardiovascular Cardiovascular: Denies chest pain Respiratory/Chest Respiratory/Chest: Denies shortness of breath at rest Gastrointestinal Gastrointestinal: Denies abdominal pain, change in bowel habits, hematochezia ormelena Physical Exam Const alert, oriented x3 and no apparent distress General Appearance: cooperative and comfortable Eyes General Eye: normal appearance of both eyes Neck General: normal visual inspection Chest inspection of chest normal Resp Effort and Inspection: able to speak in complete sentences and symmetric chest movement Auscultation: clear to auscultation bilaterally Cardio regular rate and regular rhythm GI soft to palpation, non-tender and non-distended Extremity no calf tenderness Neuro oriented x3 Psych thought process normal Assessment & Plan Assessment/Plan (1) Personal history of colonic polyps: PLAN: The patient presents today for surveillance colonoscopy as he has a personal history of colon polyps. He is aware of the technique, benefit, risk, alternatives. He had an opportunity to ask and have questions answered. We will proceed as noted. Kishore De Anda M.D., F.A.C.S. 07/11/23 0747 <Electronically signed by Kishore De Anda MD> Cosigner Signature (if applicable): CC: Dr. Rick Sow MD; Dr. Kishore De Anda MD~ Signed [facility] Work Phone: [phone]) 907-734112-28-2023 Procedure [facility] 07-11-2023 Procedure [facility]11-29-2023 Miscellaneous Notes* Telephone Encounter - Red Guerin MA - 06/12/2023 4:11 PM EST Faxed. Red Guerin MA * Telephone Encounter - Rick Sow MD - 06/12/2023 2:03 PM EST Forms ready. * Telephone Encounter - Red Guerin MA - 06/11/2023 4:18 PM EST Received fax from [employer] regarding diabetic supplies for patient. It looks like it was electronically sent 05/16. Received fax 06/11/2023. Red Guerin MA documented in this encounterTrinity [facility]11-03-2023 Miscellaneous Notes* Telephone Encounter - Tasneem Wright Ma - 05/17/2023 2:51 PM EDT Patient was notified Tasneem Wright Ma * Telephone Encounter - Rick Sow MD - 05/17/2023 2:28 PM EDT Let patient know I sent in a script for Actos 30 mg once a day to [facility] if he wants to checkon it. The following approved medication requests have been transmitted electronically. Requested Prescriptions Signed Prescriptions Disp Refills pioglitazone (ACTOS) 30 mg tablet 90 tablet 1 Sig: Take 1 tablet by mouth once daily. Authorizing Provider: RICK SOW MD * Telephone Encounter - Maribell Aguirre - 05/17/2023 9:49 AM EDT Mary Parker Cosme is calling Rick Sow MD today with a update and fyi on the medication, Invokana which is over $900.00 per patient he will not be buying this medication that was to take the place of [facility]. Patient has been identified by name and birthdate. Duration of symptoms: N/A Person calling: self Call patient at: on cell [phone] (cell) Was an appointment scheduled: No Closing statement: Results or non-symptom based questions: Thank you for calling [facility], your call will be returned within the next business day. Maribell Strauss documented in this encounterTrinity Health [facility] Center10-24-2023 Miscellaneous Notes* Telephone Encounter - Rick Sow MD - 05/07/2023 8:28 PM EDT The following approved medication requests have been transmitted electronically. Requested Prescriptions Signed Prescriptions Disp Refills losartan (COZAAR) 50 mg tablet 180 tablet 1 Sig: Take 2 tablets by mouth once daily. Authorizing Provider: RICK SOW amLODIPine (NORVASC) 10 mg tablet 90 tablet 1 Sig: Take 1 tablet by mouth once daily. Authorizing Provider: RICK SOW glimepiride (AMARYL) 4 mg tablet 180 tablet 1 Sig: Take 1 tab twice a day. Authorizing Provider: RICK SOW MD * Telephone Encounter - Tita Garza MA - 05/07/2023 9:12 AM EDT MONISHA: 04/02/23-medicare wellness with PCP NOV: 10/01/23 with RR Last refill: 12/05/22 Losartan With 180 and 1 refills Amlodipine With 90 and 1 refills Glimepiride With 180 and 1 refills Tita Garza MA documented in this encounterTrinity Health [facility] Center10-19-2023 Miscellaneous Notes* Telephone Encounter - Amanda Marrero RN - 05/02/2023 10:13 AM EDT Patient calling and states his prescriptions for atorvastatin and hydrochlorothiazide were sent to incorrect pharmacy. [facility] and cancelled the two prescriptions as requested. This nurse contacted [facility] and verbal orders given for the two prescriptions, as patient requested to use their services. Amanda Marrero RN documented in this encounterTrinity Health [facility] Center10-16-2023 Miscellaneous Notes* Telephone Encounter - Rick Sow MD - 04/29/2023 4:26 PM EDT The following approved medication requests have been transmitted electronically. Requested Prescriptions Signed Prescriptions Disp Refills Lancets lancets 100 Each 11 Sig: Test blood sugar(s) 1-2 times daily. Dx: Type 2 DM - Uncontrolled E11.65 Insulin: No Authorizing Provider: RICK SOW blood sugar diagnostic (BLOOD GLUCOSE TEST) test strip 100 Strip 11 Sig: Test blood sugar(s) 1-2 times daily. Dx: Type 2 DM - Uncontrolled E11.65 Insulin: No Authorizing Provider: RICK SOW hydroCHLOROthiazide 25 mg tablet 90 tablet 1 Sig: Take 1 tablet by mouth once daily. Authorizing Provider: RICK SOW atorvastatin (LIPITOR) 20 mg tablet 90 tablet 1 Sig: Take 1 tablet by mouth once daily. For cholesterol. Authorizing Provider: RICK SOW MD * Telephone Encounter - Carito Guillen OCCA - 04/29/2023 1:02 PM EDT MONISHA 04/02/23 NOV 10/01/23 Please review and advise. Thank you. ARTEMIO Mcclain * Telephone Encounter - Myriam Landers - 04/29/2023 12:56 PM EDT Patient has been identified by name and [...] pharmacy. No need to notify patient. Myriam Rader documented in this encounterTrinity Health [facility] Center09-28-2023 Miscellaneous Notes* Telephone Encounter - Leonora Cueva LPN - 04/11/2023 3:42 PM EDT Patient notified of results, verbalizes understanding of instructions. Leonora Cueva LPN * Telephone Encounter - Rick Sow MD - 04/11/2023 3:32 PM EDT Let patient know ct of pancrease was normal. documented in this encounterTrinity Health System [facility] Center09-27-2023 History of Present illness Narrative* Phuong Plascencia, (R) - 04/10/2023 8:40 AM EDT Radiology Service Progress Note DATE OF SERVICE: [...] creatinine assay has traceable calibration to isotope dilution- mass spectrometry. Refer to KDIGO guidelines for clinical interpretation. In patients with unstable renal function, e.g. those with acute kidney injury, the eGFRmay not accurately reflect actual GFR. eGFR- Date Value Ref Range Status 05/11/2021 >60 Final P.O.C.T. RESULTS: POC done: Yes, See Lab Tab April 10, 2023 TREATMENT: N/A PERIPHERAL IV DATA: Ambulatory: A peripheral IV was started in the Left antecubital site with a Angio cath: 18 gauge. RADIOLOGY DEPARTMENT: CT; Exam(s) Completed: Pancreas SIGNATURE: RT Jonatan(R) PATIENT NAME: Mary Aguiar DATE: April 10, 2023 TIME: 9:47 AM documented in this encounterTrinity Health System [facility] Center09-25-2023 Miscellaneous Notes* Telephone Encounter - Filomena Benitez Ma - 04/08/2023 3:51 PM EDT Pt notified and voiced understanding. Transferred to [facility]SS to set up CT. Filomena Benitez Ma * Telephone Encounter - Rick Sow MD - 04/08/2023 3:21 PM EDT Let patient know order for CT placed. The day he has the CT he needs to stop his metformin. He willneed a blood test two days after the CT to see if it's ok to restart the metformin. * Telephone Encounter - Janny Alamo LPN - 04/08/2023 1:46 PM EDT Pt notified of Dr Sow's message. Pt is agreeable to doing the CT scan. Pt aware he will be contacted once order has been placed. Janny Alamo LPN * Telephone Encounter - Rick Sow MD - 04/08/2023 1:19 PM EDT Let patient know that due to over lying bowel gas the pancrease could not be completely seen. If heis ok I can order a CT study to get better imaging. documented in this encounterTrinity Health [facility]09-21-2023 Miscellaneous Notes* Telephone Encounter - Cici Delatorre RN - 04/04/2023 9:36 AM EDT Pt called and is notified of providers message. Pt voices understanding. Cici Delatorre RN * Telephone Encounter - Farzana Kelly PA-C - 04/04/2023 9:22 AM EDT Farxiga sent back to pharmacy. Invokascooter discontinued. * Telephone Encounter - Janny Alamo LPN - 04/04/2023 8:47 AM EDT Please see message below. Janny Alamo LPN * Telephone Encounter - Katie Robledo - 04/04/2023 8:24 AM EDT Patient would like to be prescribed dapagliflozin propanediol (FARXIGA) 5 mg tablet. Patient states the pharmacy was incorrect about the christianson of the medication and told him it is at amuch lower cost. Patient would like this prescribed to him again. Please send to prescription to [facility]. Please return call to patient when complete. documented in this encounterTrinity Health System [facility]09-20-2023 Miscellaneous Notes* Telephone Encounter - Tasneem Wright Ma - 04/03/2023 8:07 PM EDT Patient was notified Tasneem Wright Ma * Telephone Encounter - Rick Sow MD - 04/03/2023 8:00 PM EDT Let patient know I sent in a [...] by mouth daily before breakfast. Authorizing Provider: RICK SOW MD * Telephone Encounter - Amanda Marrero RN - 04/03/2023 1:32 PM EDT Patient states he saw Dr. Sow yesterday and Farxiga was ordered for him. Reports this medicationwill cost him too much, about $538 per month. Pt asking if Dr. Sow could recommend a different medication, that will be less costly. Please advise patient. Thank you. documented in this encounterTrinity Health [facility] Center09-19-2023 Instructions* Patient Instructions* Rick Sow MD - 04/02/2023 9:44 AM EDT Consider getting the shingrix vaccine for the prevention of shingles from a local pharmacy Also consider getting Tdap update for tetanus at the health dept. Would also advise getting the RSV vaccine. Please get labs and urine test done on or after 09/20/2023 prior to your next visit. documented in this encounterTrinity Health [facility]09-19-2023 History of Present illness Narrative* Rick Sow MD - 04/02/2023 9:41 AM EDT Images from the original note were not [...] FLX DX W/COLLJ SPEC WHEN PFRMD 06/13/2018 [facility]--Repeat 5 years COLSC FLX W/RMVL OF TUMOR POLYP LESION SNARE TQ 04-23-13 DEBRIDEMENT SUBCUTANEOUS TISSUE 20 SQ CM/< Left 06/27/15 Debridement UIQ left breast infected glenny cyst ENDOVENOUS LASER, 1ST VEIN 11/16/2014 [facility] - see scanned documents ENDOVENOUS LASER, 1ST VEIN 06/05/2015 [facility] - right great saphenous vein NEUROPLASTY &/TRANSPOS [...] Topics Alcohol use: Yes Drug use: No Mary may ride his bike a few days a week but not much recently. . He watches his diet for sodium, low fat and low cholesterol generally not very much. List of current specialists seen: optho End of Live Planning discussed including patients advanced directive wishes: Yes I am willing to follow Mary's advanced directives. PHQ-2 / Depression screen Not [...] bars in the bathroom, lack of handrails onthe stairs or have poor lighting? No Hearing Evaluation: normal PHYSICAL EXAM BP 128/80 Pulse 67 Resp 16 Ht 185 cm (6' 0.84) Wt (!) 148.3 kg (327 lb) SpO2 95% BMI 43.34 kg/m Alert and oriented X 3: YES Body mass index is 43.34 kg/m . Visual acuity: see optho See below ASSESSMENT/PLAN: 67 year old male The following prevention plan was discussed during the office visit and provided to the patient: See below Rick Sow MD Chief Complaint Patient presents with: Medicare Wellness Exam HPI Mary Aguiar is a 67 year old male who presents here today for Chronic Medical Conditions. andMedicare Annual Visit. Patient with Hx of HTN, DM 2, Hyperlipidemia, ex-smoker, Morbid obesity, CATHERINE, venous insufficiency,rosea, arthritis as well as those reviewed and [...] FLX DX W/COLLJ SPEC WHEN PFRMD 06/13/2018 [facility]-Michael De Anda--Repeat 5 years COLSC FLX W/RMVL OF TUMOR POLYP LESION SNARE TQ 04-23-13 DEBRIDEMENT SUBCUTANEOUS TISSUE 20 SQ CM/< Left 06/27/15 Debridement UIQ left breast infected glenny cyst ENDOVENOUS LASER, 1ST VEIN 11/16/2014 [facility] - see scanned documents ENDOVENOUS LASER, 1ST VEIN 06/05/2015 [facility] - right great saphenous vein NEUROPLASTY &/TRANSPOS [...] by mouth once daily. Take with food. Meridian-3 Fatty Acids-Vitamin E (FISH OIL) 1,000 mg [...] or shortness of breath. Has had a drycough for the past few days CARDIOVASCULAR: Negative [...] 65 Resp 16 Ht 185 cm (6' 0.84) Wt (!) 148.3 kg (327 lb) SpO2 95% BMI 43.34 kg/m Last 4 Encounter Wt Readings: Date: Wt: 04/02/2023 148.3 kg (327 lb) 09/25/2022 147 kg (324 lb) 03/28/2022 149.7 kg (330 lb) 02/26/2022 150.2 kg (331 lb 3.2 oz) General Appearance: Well appearing, alert, in no acute distress, well-hydrated, well nourished. andMorbidly obese. Skin: Skin color, texture, turgor normal, [...] symmetric. Sensation to light touch and crainal nerves2-12 intact.. Genitalia: Normal, Penis normal. No urethral [...] Ketones, Urine Trace, Negative Negative Negative Specific [place], Ur 1.005 - 1.030 1.021 1.018 Hemoglobin/Blood,Ur [...] BMI 43.34 kg/(m^2) 3. Diabetic eye exam (HCC) - ICD9: V72.0, [...] which included preparing to see the patient, [id number] patient care, completing clinical documentation, performing a medically appropriate examination, counseling and educating the patient/family/caregiver and ordering medications, tests, or procedures. Rick Sow MD documented in this encounterTrinity [facility]07-10-2023 History of Present illness Narrative* Red Guerin MA - 01/21/2023 5:02 PM EDT Scan on 01/11/2023 6:07 PM by External Provider, KENNA: Consultation - Ophthalmology Hm updated Red Guerin MA documented in this encounterTrinity [facility]03-14-2023 History of Present illness Narrative* Farzana Kelly PA-C - 09/25/2022 8:08 AM EDT Chief Complaint Patient presents with: Follow Up: 6 month HPI Mary Aguiar is a 66 year old male [...] Morbid obesity with BMI of 40.0-44.9, adult ([facility]) 07/06/2010 Palpitations 11/29/2021 Has had for many years Personal history of colonic polyps 2018 Plantar fasciitis 05/02/2018 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) 05/15/2021 Rosacea 03/11/2021 Sleep apnea 09/01/2007 Not using CPAP Stasis dermatitis 07/07/2011 Type 2 diabetes mellitus without complication, without long-term current use of insulin ([facility]) 02/11/2016 Uncontrolled type 2 diabetes mellitus with hyperglycemia ([facility]) 07/28/2021 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 Venous (peripheral) insufficiency 03/08/2005 Previous Surgical History PAST SURGICAL HISTORY Procedure Laterality Date CHOLECYSTECTOMY 2003 Cholecystectomy COLONOSCOPY FLX DX W/COLLJ SPEC WHEN PFRMD 11-21-07 COLONOSCOPY FLX DX W/COLLJ SPEC WHEN PFRMD 06/13/2018 [facility]--Repeat 5 years COLSC FLX W/RMVL OF TUMOR POLYP LESION SNARE TQ 04-23-13 DEBRIDEMENT SUBCUTANEOUS TISSUE 20 SQ CM/< Left 06/27/15 Debridement UIQ left breast infected glenny cyst ENDOVENOUS LASER, 1ST VEIN 11/16/2014 [facility] - see scanned documents ENDOVENOUS LASER, 1ST VEIN 06/05/2015 [facility] - right great saphenous vein NEUROPLASTY &/TRANSPOS [...] by mouth once daily. Take with food. Meridian-3 Fatty Acids-Vitamin E (FISH OIL) 1,000 mg [...] Negative Negative Ketones, Urine Negative Negative Specific [place], Ur 1.005 - 1.030 1.021 Hemoglobin/Blood,Ur Negative [...] complication, without long-term current use of insulin ([facility]) - ICD9: 250.00, ICD10: E11.9 (primary diagnosis) [...] LIPID PANEL, NONFASTING 7. Diabetic eye exam ([facility]) - ICD9: V72.0, 250.00, ICD10: Z01.00, E11.9 - Controlled 8. Morbid obesity with BMI of 40.0-44.9, adult ([facility]) - ICD9: 278.01, V85.41, ICD10: E66.01, Z68.41 Weight decreasing and Stable - Behavioral intervention 9. Prostate disorder - ICD9: 602.9, ICD10: N42.9 - PSA/PROSTSPECAG DIAG 10. Encounter for immunization - ICD9: V03.89, ICD10: Z23 - PFIZER-BIONTECH COVID-19 BIVALENT BOOSTER VACCINE, AGE 12+ YR Farzana Kelly PA-C documented in this encounterTrinity [facility]01-04-2023 Miscellaneous Notes* Telephone Encounter - Yue Espinoza RN - 07/18/2022 2:34 PM EST Patient calls to let provider's office know that his new pharmacy will be [facility]. He will no longer be utilizing [facility]. Updated Clinical information per patient request. Patient will call as prescriptions are needed. Yue Espinoza RN documented in this encounterTrinity Health [facility]10-24-2022 Miscellaneous Notes* Telephone Encounter - Red Guerin MA - 05/07/2022 5:14 PM EDT Faxed. Red Guerin MA * Telephone Encounter - Rick Sow MD - 05/07/2022 4:01 PM EDT Forms completed and ready to be returned. * Telephone Encounter - Red Guerin MA - 05/07/2022 12:39 PM EDT Received paperwork for Test Strips and Lancets. Verified not for Lantus. Red Guerin MA * Telephone Encounter - Renee Cabral Pss - 05/07/2022 11:29 AM EDT Mary said his pharmacy sent Dr. Sow paperwork to fill out so he can get his Lantus and test strips. Please call him with an update on status. [phone] documented in this encounterTrinity Health [facility]10-13-2022 Miscellaneous Notes* Telephone Encounter - Rick Sow MD - 04/26/2022 4:24 PM EDT The following approved medication requests have been transmitted electronically. Requested Prescriptions Signed Prescriptions Disp Refills blood sugar diagnostic (BLOOD GLUCOSE TEST) test strip 100 Strip 11 Sig: Test blood sugar(s) 1-2 times daily. Dx: Type 2 DM - Uncontrolled E11.65 Insulin: No Authorizing Provider: RICK SOW Lancets lancets 100 Each 11 Sig: Test blood sugar(s) 1-2 times daily. Dx: Type 2 DM - Uncontrolled E11.65 Insulin: No Authorizing Provider: RICK SOW MD * Telephone Encounter - Ellie Samaniego RN - 04/26/2022 4:19 PM EDT Patient calls and states that [facility] pharmacy does not have diabetic testing supplies. Patients asking for prescription to be sent to [facility]. Ellie Samaniego RN documented in this encounterTrinity Health [facility]10-10-2022 Miscellaneous Notes* Telephone Encounter - Red Guerin MA - 04/23/2022 9:43 AM EDT Patient has been identified by name and [...] to pharmacy. No need to notify patient. Red Guerin MA Monisha: 03/2022 Nov; Last refill: 11/2021 documented in this encounterTrinity Health [facility]10-03-2022 Miscellaneous Notes* Telephone Encounter - Red Guerin MA - 04/16/2022 4:59 PM EDT Patient notified and voiced understanding. Red Guerin MA * Telephone Encounter - Rick Sow MD - 04/16/2022 4:46 PM EDT Advise patient to continue what he is doing and will see where his A1c is at next visit. * Telephone Encounter - Filomena Benitez Ma - 04/16/2022 2:46 PM EDT Spoke with pt, he stated he never filled Jardiance because it was $1,000. He is just taking Amaryl BID and Metformin BID as well as watching diet better. Has been checking BS in AM, FBS running 101-120, mostly getting readings of 110. Please advise. Filomena Benitez Ma * Telephone Encounter - Rick Sow MD - 04/16/2022 2:24 PM EDT Let patient know insurance will not cover Rybelsus. See if he is ok with my increasing his Jardiance from 10 mg a day to 25 mg a day if so I will send in a new script. He can use up the 10 dose by taking two a day. * Telephone Encounter - Red Guerin MA - 04/11/2022 2:22 PM EDT Received paperwork from [facility] denying Rybelsus 7 mg. See paperwork on PCP desk. Red Guerin MA * Telephone Encounter - Red Guerin MA - 04/06/2022 9:42 AM EDT Contacted pharmacy and they indicated that they contacted office and spoke with Triston (nurse) [facility] on January 03 in regards to prior. Apparently paperwork was faxed to [phone] returned to the pharmacist for review. I did ask them to please update Dr. Sow's fax number. Red Guerin MA * Telephone Encounter - Red Guerin MA - 04/04/2022 3:02 PM EDT Contacted patient and cancelled 3 mg tablet from [facility]. Red Guerin MA Still waiting on paperwork from pharmacy. [facility] Red Guerin MA * Telephone Encounter - Veronique Rick LPN - 04/03/2022 10:19 AM EDT Spoke with pt and he states he did not spanish moss picker the 3 mg. He is willing to take the 3 mg but the cost is still going to be $800 to 900. Pt states [facility] is sending paper work to have completed to try get a tier reduction. Please watch for paperwork. Veronique Rick LPN * Telephone Encounter - Rick Sow MD - 04/02/2022 4:32 PM EDT Before I send the 7 mg to mail away did he spanish moss picker the 3 mg dose then? If not I would suggest we dothe 3 mg dose to mail away first. However I would advise he call his mail away company to see how much it will cost. * Telephone Encounter - Aye Alston RN - 04/02/2022 4:22 PM EDT Patient reports the Rybelsus will cost him $800-900. He cannot afford this. Reports the 7 mg Rybelsus should have been sent to the mail order pharmacy, which may be cheaper. Cancelled the 7 mg Rx at [facility]. Asking pcp to send the 7 mg to mail order. Pended. Patient will call insurance to see if they have a cheaper option and let pcp know. documented in this encounterTrinity Health [facility]09-20-2022 Miscellaneous Notes* Telephone Encounter - Red Guerin MA - 04/03/2022 10:38 AM EDT Please see other phone note regarding prescription. Closing this encounter. Red Guerin MA * Telephone Encounter - Lynda Oliva - 04/03/2022 9:37 AM EDT Mary Aguiar is calling Rick Sow MD today to advise his insurance is going to fax over a Tier exception form for the doctor to complete on the semaglutide (RYBELSUS) 3 mg tablet Once received please complete and send back. documented in this encounterTrinity Health [facility]09-19-2022 Miscellaneous Notes* Telephone Encounter - Janny Alamo LPN - 04/02/2022 9:41 AM EDT Pt notified of Dr Sow's message and instructions. Pt verbalizes understanding. Jnany Alamo LPN * Telephone Encounter - Rick Sow MD - 04/01/2022 11:28 AM EDT Advise patient I ent in a script [...] by mouth daily before breakfast. Authorizing Provider: RICK SOW semaglutide (RYBELSUS) 7 mg tablet 90 tablet 1 Sig: Take 1 tablet (7 mg) by mouth daily before breakfast. After completing 3 mg dose Authorizing Provider: RICK SOW MD * Telephone Encounter - Yue Espinoza RN - 03/30/2022 4:18 PM EDT Patient calls to let provider know that the Jardiance prescription ordered on 03/28/2022 would cost patient $580 for a 3 month supply and that is out of christians[place] range that patient is able to afford. Yue Espinoza RN documented in this encounterTrinity Health [facility]09-14-2022 Miscellaneous Notes* Telephone Encounter - Cynthia Amezquita Ma - 03/28/2022 2:15 PM EDT AkaRxt message sent to pt notifying him of results from PCP. If questions to contact the office. Cynthia Amezquita Ma * Telephone Encounter - Rick Sow MD - 03/28/2022 1:19 PM EDT Let patient know x-ray of left foot shows some mild arthritis but no fractures. documented in this encounterTrinity Health [facility]09-14-2022 History of Present illness Narrative* Federcia Hillman RT(R) - 03/28/2022 9:40 AM EDT Radiology Service Progress Note PATIENT NAME: Mary Aguiar DATE OF SERVICE: March 28, 2022 TIME: 9:51 AM PATIENT IDENTITY VERIFICATION COMPLETED USING TWO (2) IDENTIFIERS: Name and Date of confirmedby patient verbally. FALL SCREENING: Has the patient had 2 falls in the last year or 1 fall with injury or currently using an Ambulatory Assistive Device (Walker, Cane, Wheelchair, Crutches, etc.)? No PATIENT GENDER DATA: Male PATIENT RELEVANT IMPLANT DATA REVIEWED: Not Applicable RADIOLOGY DEPARTMENT: General X-ray: Exam(s) Completed: Lower Extremity X- Ray(s): Foot, Left and Wt. Bearing PERIPHERAL IV DATA: Not applicable SIGNED BY: RT Lanette(R) March 28, 2022 9:51 AM documented in this encounterTrinity Health [facility]09-14-2022 Instructions* Patient Instructions* Rick Sow MD - 03/28/2022 8:28 AM EDT Consider getting the shingrix vaccine for the prevention of shingles from a local pharmacy. Please get labs and urine test done on or after 09/14/2022 prior to your next visit., documented in this encounterTrinity Health [facility]09-14-2022 History of Present illness Narrative* Rick Sow MD - 03/28/2022 8:00 AM EDT Medicare Yearly Visit Medical B eligibilty date [...] Morbid obesity with BMI of 40.0-44.9, adult ([facility]) 07/06/2010 Open wound of knee, leg [...] Uncontrolled type 2 diabetes mellitus with hyperglycemia ([facility]) 07/28/2021 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) 03/08/2005 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--Repeat 5 years COLSC FLX W/RMVL OF TUMOR POLYP LESION SNARE TQ 04-23-13 DEBRIDEMENT SUBCUTANEOUS TISSUE 20 SQ CM/< Left 06/27/15 Debridement UIQ left breast infected glenny cyst ENDOVENOUS LASER, 1ST VEIN 11/16/2014 [facility] - see scanned documents ENDOVENOUS LASER, 1ST VEIN 06/05/2015 [facility] - right great saphenous vein NEUROPLASTY &/TRANSPOS [...] Topics Alcohol use: Yes Drug use: No Mary denies regular aerobic exercise. He watches his diet for sodium, low fat and low cholesterol generally not very much. List of current specialists seen: none End of Live Planning discussed including patients advanced directive wishes: Yes I am willing to follow Mary's advanced directives. PHQ-2 / Depression screen Depression Screening 05/02/2018 05/06/2019 09/09/2020 03/28/2022 PHQ-2 Score 0 0 0 0 Depression screening tool completed and reviewed. Based on score and interview, patient is not at risk for depression. Screening tool discussed with patient, and I recommended no further interventionat this time. PHQ-2 Score: 0 Functional Ability/Safety Screen 1. Was the patient's timed Up and Go test unsteady or longer than 30 seconds? No 2. Does the patient need help with the phone, transportation, shopping,preparing meals, housework, laundry, medications or managing money? No 3. Does your home have rugs in the hallway, lack of grab bars in the bathroom, lack of handrails onthe stairs or have poor lighting? No Hearing [...] and provided to the patient: See below Rick Sow MD Chief Complaint Patient presents with: Medicare Wellness Exam HPI Mary Aguiar is a 66 year old male who presents here today for Medicare Annual Visit. Patient with Hx of HTN, DM 2, Hyperlipidemia, ex-smoker, Morbid obesity, CATHERINE, venous insufficiency,rosea, arthritis as well as those reviewed and [...] FLX DX W/COLLJ SPEC WHEN PFRMD 06/13/2018 [facility]--Repeat 5 years COLSC FLX W/RMVL OF TUMOR POLYP LESION SNARE TQ 04-23-13 DEBRIDEMENT SUBCUTANEOUS TISSUE 20 SQ CM/< Left 06/27/15 Debridement UIQ left breast infected glenny cyst ENDOVENOUS LASER, 1ST VEIN 11/16/2014 [facility] - see scanned documents ENDOVENOUS LASER, 1ST VEIN 06/05/2015 [facility] - right great saphenous vein NEUROPLASTY &/TRANSPOS [...] by mouth once daily. Take with food. Meridian-3 Fatty Acids-Vitamin E (FISH OIL) 1,000 mg [...] if he does not eat on a regularbasis. NEURO: No history of headaches, syncope, paralysis, [...] symmetric. Sensation to light touch and crainal nerves2-12 intact.. Genitalia: Normal. Rectal: Normal exam. Prostate [...] Abs Lymph 1.00 - 4.00 k/uL 2.86 Sherman% % 7.5 Abs Sherman <0.87 k/uL 0.55 Eosin% % 4.9 Abs [...] Negative Negative Ketones, Urine Negative Negative Specific [place], Ur 1.005 - 1.030 1.021 Hemoglobin/Blood,Ur Negative [...] which included preparing to see the patient, [id number] patient care, completing clinical documentation, performing a medically appropriate examination, counseling and educating the patient/family/caregiver and ordering medications, tests, or procedures. Rick Sow MD documented in this encounterTrinity Health [facility]09-13-2022 Miscellaneous Notes* Telephone Encounter - Farzana Kelly PA-C - 03/27/2022 11:52 AM EDT The following approved medication requests have been transmitted electronically. Requested Prescriptions Signed Prescriptions Disp Refills glimepiride (AMARYL) 4 mg tablet 180 tablet 1 Sig: Take 1.5 tabs in AM and 0.5 tabs in PM Authorizing Provider: FARZANA KELLY PA-C * Telephone Encounter - Phuong Alejnadro LPN - 03/27/2022 11:03 AM EDT Last office visit: 11/29/21 Next appointment scheduled: 03/21/22 Last labs: 03/28/22 Patient phones requesting refills as follows: Requested Prescriptions Pending Prescriptions Disp Refills glimepiride (AMARYL) 4 mg tablet Sig: Take 1.5 tabs in AM and 0.5 tabs in PM Please review and advise. Phuong Alejandro LPN documented in this encounterTrinity Health System [facility]08-15-2022 Instructions* Patient Instructions* Miladys Rangel APRN.CNP - 02/26/2022 11:06 AM EDT covid test ordered You will be notified in 24 -48 hours, results available on [facility] until covid results are back [...] breath, inability to swallow. documented in this encounterTrinity Health System [facility] Center08-15-2022 History of Present illness Narrative* Miladys Rangel APRN.TARAN - 02/26/2022 11:03 AM EDT Subjective The history is provided by the patient. No high school foreign language teacher was used. 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 Pt acknowledged understanding of concepts and follow up plan. Specific signs and symptoms that would indicate the need for higher level of care were discussed indetail warranting prompt ER evaluation. Miladys Rangel APRN.TARAN documented in this encounterTrinity Health System [facility] Center06-06-2022 Instructions* Patient Instructions* Carito Landaverde RD - 12/18/2021 11:28 AM EDT 1. Follow a consistent carbohydrate controlled diet 2. Consistent carbohydrate intake of ~3 carbs per meal ~45 grams and 1 carb per evening snack or 15grams. 3 Consume whole grains (whole wheat, oatmeal, bran flakes, popcorn) 4 Consume fresh or frozen fruits and vegetables. 5 Use lean meats (poultry, fish, lean beef or pork). 6 Use calorie-free or sugar-free beverages. 7 Use healthy fats: [place] oil, canola oil, walnuts, ground flaxseed or [...] until you are comfortable with visibly estimating accurateportion sizes documented in this encounterTrinity Health System [facility] Center06-06-2022 History of Present illness Narrative* Carito Landaverde RD - 12/18/2021 11:03 AM EDT Nutrition Therapy Initial Assessment Nutrition Diagnosis: Behavioral-Environmental: [...] and 1 carb per evening snack or 15grams. 3 Consume whole grains (whole wheat, oatmeal, bran flakes, popcorn) 4 Consume fresh or frozen fruits and vegetables. 5 Use lean meats (poultry, fish, lean beef or pork). 6 Use calorie-free or sugar-free beverages. 7 Use healthy fats: [place] oil, canola oil, walnuts, ground flaxseed or [...] until you are comfortable with visibly estimating accurateportion sizes. Nutrition Monitoring & Evaluation: labs in [...] Readings: Date: Ht: 12/18/2021 185.4 cm (6' 1) Current weight: Last 1 Encounter Wt Readings: [...] Physical limitations affecting learning: None Referred/Supervised by: Lizz CORTÉS Billing Type: Initial Assess/15 min 2 units SIGNATURE: Carito Landaverde RD PATIENT NAME: Mary Aguiar DATE: December 18, 2021 TIME: 11:06 AM documented in this encounterTrinity Health System [facility] Center05-18-2022 Instructions* Patient Instructions* Rick Sow MD - 11/29/2021 1:52 PM EDT Please get labs and urine test done on or after 03/16/2022 prior to your next visit. For the Glimepiride Take 1.5 tabs in AM and 0.5 tabs in PM documented in this encounterTrinity Health System [facility]05-18-2022 History of Present illness Narrative* Rick Sow MD - 11/29/2021 1:05 PM EDT Chief Complaint Patient presents with: Recheck: 4 months HPI Mary Aguiar is a 65 year old male who presents here today for Chronic Medical Conditions.. Patient with Hx of HTN, DM 2, Hyperlipidemia, ex-smoker, Morbid obesity, CATHERINE, venous insufficiency,rosea, arthritis as well as those reviewed and [...] Morbid obesity with BMI of 40.0-44.9, adult ([facility]) 07/06/2010 Open wound of knee, leg (except thigh), and ankle, without mention of complication 03/08/2005 Personal history of colonic polyps 2018 Plantar fasciitis 05/02/2018 Proteinuria due to type 2 diabetes mellitus ([facility]) 05/15/2021 Rosacea 03/11/2021 Sleep apnea 09/01/2007 Not using CPAP Sprain of lumbosacral (joint) (ligament) 03/08/2005 Stasis dermatitis 07/07/2011 Type 2 diabetes mellitus without complication, without long-term current use of insulin ([facility]) 02/11/2016 Type 2 diabetes mellitus, without long-term current use of insulin ([facility]) 02/11/2016 Uncontrolled type 2 diabetes mellitus with hyperglycemia ([facility]) 07/28/2021 Varicose veins of lower extremities with ulcer ([facility]) 03/08/2005 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 Venous (peripheral) insufficiency 03/08/2005 Previous Surgical History PAST SURGICAL HISTORY Procedure Laterality Date CHOLECYSTECTOMY 2003 Cholecystectomy COLONOSCOPY FLX DX W/COLLJ SPEC WHEN PFRMD 11-21-07 COLONOSCOPY FLX DX W/COLLJ SPEC WHEN PFRMD 06/13/2018 [facility]-Michael De Anda--Repeat 5 years COLSC FLX W/RMVL OF TUMOR POLYP LESION SNARE TQ 04-23-13 DEBRIDEMENT SUBCUTANEOUS TISSUE 20 SQ CM/< Left 06/27/15 Debridement UIQ left breast infected glenny cyst ENDOVENOUS LASER, 1ST VEIN 11/16/2014 [facility] - see scanned documents ENDOVENOUS LASER, 1ST VEIN 06/05/2015 [facility] - right great saphenous vein NEUROPLASTY &/TRANSPOS [...] by mouth once daily. Take with food. Meridian-3 Fatty Acids-Vitamin E (FISH OIL) 1,000 mg [...] Abs Lymph 1.00 - 4.00 k/uL 2.47 Sherman% % 6.3 Abs Sherman <0.87 k/uL 0.42 Eosin% % 4.5 Abs [...] loss - Discussed diabetic education issues of long wall shear operator diabetic complications, medications- side effects and need [...] UA, Urine micro albumin, A1c, CBC, PSA [facility]ow [facility] of Past illness Narrative* Problem Noted [...] of this encounter (statuses as of 11/30/2021) [facility] of Past illness Narrative* Problem Noted [...] of this encounter (statuses as of 12/18/2021) [facility] of Past illness Narrative* Problem Noted [...] of this encounter (statuses as of 02/26/2022) [facility] of Past illness Narrative* Problem Noted [...] of this encounter (statuses as of 03/27/2022) [facility] History of Past illness Narrative* Problem Noted [...] of this encounter (statuses as of 03/28/2022) [facility] History of Past illness Narrative* Problem Noted [...] of this encounter (statuses as of 03/29/2022) [facility] of Past illness Narrative* Problem Noted [...] of this encounter (statuses as of 04/02/2022) [facility] of Past illness Narrative* Problem Noted [...] of this encounter (statuses as of 04/03/2022) [facility] History of Past illness Narrative* Problem Noted [...] of this encounter (statuses as of 04/17/2022) [place] [address]-23-2010 History of Past illness Narrative* Problem Noted [...] of this encounter (statuses as of 04/23/2022) [facility] of Past illness Narrative* Problem Noted [...] of this encounter (statuses as of 04/26/2022) [facility] History of Past illness Narrative* Problem Noted [...] of this encounter (statuses as of 05/07/2022) [facility] of Past illness Narrative* Problem Noted [...] of this encounter (statuses as of 05/16/2022) [facility] of Past illness Narrative* Problem Noted [...] of this encounter (statuses as of 07/20/2022) [facility] of Past illness Narrative* Problem Noted [...] of this encounter (statuses as of 09/25/2022) [facility] of [facility] illness Narrative* Problem Noted [...] of this encounter (statuses as of 01/22/2023) [facility] of [facility] illness Narrative* Problem Noted [...] of this encounter (statuses as of 04/02/2023) [facility] of Past illness Narrative* Problem Noted [...] of this encounter (statuses as of 04/04/2023) [facility] of [facility] illness Narrative* Problem Noted [...] of this encounter (statuses as of 04/09/2023) [facility] of [facility] illness Narrative* Problem Noted [...] of this encounter (statuses as of 04/23/2023) [facility] of Past illness Narrative* Problem Noted [...] of this encounter (statuses as of 04/30/2023) [facility] of Past illness Narrative* Problem Noted [...] of this encounter (statuses as of 05/01/2023) [facility] of [facility] illness Narrative* Problem Noted [...] of this encounter (statuses as of 05/02/2023) [facility] of [facility] illness Narrative* Problem Noted [...] of this encounter (statuses as of 05/08/2023) [facility] of [facility] illness Narrative* Problem Noted [...] of this encounter (statuses as of 05/18/2023) [facility] of Past illness Narrative* Problem Noted [...] of this encounter (statuses as of 05/19/2023) [facility] of Past illness Narrative* Problem Noted [...] of this encounter (statuses as of 05/24/2023) [facility] of Past illness Narrative* Problem Noted [...] of this encounter (statuses as of 05/31/2023) [facility] of [facility] illness Narrative* Problem Noted [...] of this encounter (statuses as of 06/13/2023) [facility] Narrative* Problem Noted [...] as of this encounter (statuses as of 07/16/2023) [facility] of [facility] illness Narrative* Problem Noted [...] as of this encounter (statuses as of 08/22/2023) [facility] of [facility] illness Narrative* Problem Noted [...] as of this encounter (statuses as of 10/01/2023) [facility] of [facility] illness Narrative* Problem Noted [...] as of this encounter (statuses as of 10/02/2023) [facility] of [facility] illness Narrative* Problem Noted [...] as of this encounter (statuses as of 10/02/2023) [place] [address]-23-2010 History of Past illness Narrative* Problem Noted [...] as of this encounter (statuses as of 10/31/2023) [facility] noteNo assessment information availableWChildren's Hospital of [facility] Work Phone: Evaluation note* Diagnosis Proteinuria due to type 2 [...] of unspecified site documented in this encounter [facility] note* Diagnosis Obesity, Class III, BMI 40-49.9 (morbid obesity) (HCC)- Primary Morbid obesity Type 2 diabetes mellitus without complication, without long-term current use of insulin ([facility]) Dietary counseling Dietary surveillance and counseling documented in this encounter [facility] note* Diagnosis Suspected COVID-19 virus infection- Primary Upper respiratory symptom Other symptoms involving respiratory system and chest Body aches Generalized pain Rash Rash and other nonspecific skin eruption documented in this encounter [facility] note* Diagnosis Medicare annual wellness visit, subsequent- [...] warts, unspecified type documented in this encounter [facility] note* Diagnosis Uncontrolled type 2 diabetes mellitus with hyperglycemia (HCC) Type 2 diabetes mellitus without complication, without long-term current use of insulin (HCC) Essential hypertension, benign Hyperlipidemia with target LDL less than 100 Other and unspecified hyperlipidemia [facility] this [facility]* Diagnosis Uncontrolled type 2 diabetes mellitus with hyperglycemia (HCC) [facility] this [facility]* Diagnosis Type 2 diabetes mellitus without complication, without long-term current use of insulin (HCC) [facility] this [facility]* Diagnosis Type 2 diabetes mellitus [...] single bacterial disease [facility]* Diagnosis Medicare annual wellness visit, subsequent- Primary Routine general medical examination at a [facility] care facility Type 2 diabetes mellitus without [...] COVID-19 virus infection [facility]* Diagnosis Family history of pancreatic cancer- Primary Family history of malignant neoplasm of gastrointestinal tract Type 2 diabetes mellitus without complication, without long-term current use of insulin (HCC) [facility] Diagnosis Uncontrolled type 2 diabetes mellitus with hyperglycemia (HCC) Essential hypertension, benign Hyperlipidemia with target LDL less than 100 Other and unspecified hyperlipidemia [facility]* Diagnosis Essential hypertension, benign [facility]* Diagnosis Family history of pancreatic cancer Family history of malignant neoplasm of gastrointestinal tract documented in this encounter [facility] note* Diagnosis Onset Date Resolution Status Personal history of colonic polyps acute [facility] Work Phone: Evaluation note* Diagnosis Essential hypertension, benign Hyperlipidemia with target LDL less than 100 Other and unspecified hyperlipidemia documented in this encounter [facility] note* Diagnosis Type 2 diabetes mellitus without complication, without long-term current use of insulin (HCC)- Primary Uncontrolled type 2 diabetes mellitus with hyperglycemia (HCC) Rosacea Hyperlipidemia, mixed Mixed hyperlipidemia Essential hypertension, benign 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) Prostate disorder Unspecified disorder of prostate Morbid obesity with BMI of 40.0-44.9, adult ([facility]) Morbid obesity documented in this encounter [facility] note* Diagnosis Uncontrolled type 2 diabetes mellitus with hyperglycemia (HCC) 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) documented in this encounter [facility] note* Diagnosis Medicare annual wellness visit, subsequent- Primary Routine general medical examination at a health care facility Type 2 diabetes mellitus without complication, without long-term current use of insulin (HCC) Diabetic eye exam ([facility]) Type II or unspecified type diabetes mellitus without mention of complication, not stated as uncontrolled Essential hypertension, benign Hyperlipidemia, mixed Mixed hyperlipidemia 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) Morbid obesity with BMI of 40.0-44.9, adult (HCC) Morbid obesity Stasis dermatitis Varicose veins of lower extremities with inflammation Varicose veins of both lower extremities, unspecified whether complicated Venous (peripheral) insufficiency Unspecified venous (peripheral) insufficiency Benign prostatic hyperplasia with urinary frequency Foot callus Corns and callosities Advance directive discussed with patient Other specified counseling Encounter for immunization Need for other specified prophylactic vaccination against single bacterial disease Screening for depression Encounter for screening examination for other mental health and behavioral disorders documented in this encounter [facility] note* Diagnosis Foot pain, left Pain in limb documented in this encounter [facility] note* Diagnosis Encounter for immunization- Primary Need for other specified prophylactic vaccination against single bacterial disease [facility]* Diagnosis Neck sprain, initial encounter- Primary Neck pain Cervicalgia Neck muscle spasm Spasm of muscle documented [facility] this encounter [facility]* Diagnosis Influenza A- Primary Influenza with other respiratory manifestations Influenza-like illness Influenza with other respiratory manifestations documented in this encounter [facility] note* Diagnosis Hospital discharge follow-up- Primary Other follow-up examination Influenza A Influenza with other respiratory manifestations Essential hypertension, benign Syncope, unspecified syncope type Chronic obstructive pulmonary disease with acute exacerbation (HCC) Obstructive chronic bronchitis with exacerbation ELEN (acute kidney injury) (HCC) Acute kidney failure, unspecified [facility] this [facility]* Diagnosis Hyponatremia- Primary Hyposmolality and/or hyponatremia Essential hypertension, benign documented [facility] this encounter [facility]* Diagnosis Type 2 diabetes mellitus without complication, without long-term current use of insulin (HCC)- Primary Essential hypertension, benign Hyperlipidemia, mixed Mixed hyperlipidemia Uncontrolled type 2 diabetes mellitus with hyperglycemia (HCC) 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) Prostate disorder Unspecified disorder of prostate Morbid obesity with BMI of 40.0-44.9, adult (HCC) Morbid obesity Benign prostatic hyperplasia with urinary frequency Bilateral carotid artery stenosis Occlusion and stenosis of carotid artery without mention of cerebral infarction documented in this encounter [facility] for referral (narrative)* Diagnostic Procedure Only (Routine) - Closed Specialty Diagnoses / Procedures Referred By Contac t Referred To Contact XR IMAGING Diagnoses Foot pain, left Procedures XR FOOT GENERAL 3V AP/LAT/OBL LEFT RADEX FOOT COMPLETE MINIMUM 3 VIEWS Rick Sow MD [address] [place] [address] Xr Imaging Referral ID Status Reason Start Date Expiration Date V isits Requested Visits Authorized [id number] Closed Auto-Generate d Referral 03/28/2022 04/27/2023 1 1 [facility] for referral (narrative)* Diagnostic Procedure Only (Routine) - Authorized Specialty Diagnoses / Procedures Referred By Contac t Referred To Contact US IMAGING Diagnoses Family history of pancreatic cancer Procedures US ABD RIGHT UPPER QUADRANT US ABDOMINAL REAL TIME W/IMAGE LIMITED Rick Sow MD [address] [place] [address] [place] [address] Referral ID Status Reason Start Date Expiration Date Visits Requested Visits Authorized [id number] Authorized Auto-Generat ed Referral 04/02/2023 05/01/2024 1 1 * Transition of Care (Routine) - Ref Not Required Specialty Diagnoses / Procedures Referred By Contac t Referred To Contact Dermatology Diagnoses Neoplasm of uncertain behavior of skin of nose Procedures CONSULT TO DERMATOLOGY Rick Sow MD [address] [place] [address] Referral ID Status Reason Start Date Expiration Date Visits Requested Visits Authorized [id number] Ref Not Required PCP Requested Referral 04/02/2023 04/01/2024 1 1 * Consult, Test, Treat (Routine) - Authorized Specialty Diagnoses / Procedures Referred By Contac t Referred To Contact General Surgery Diagnoses History of colonic polyps Screening for colon cancer Procedures CONSULT TO GENERAL SURGERY OFFICE/OUTPATIENT [facility] MDM 60-74 MINUTES Rick Sow MD [address] [place] [id number] Referral ID Status Reason Start Date Expiration Date Visits Requested Visits Authorized [id number] Authorized PCP Requested Referral 04/02/2023 04/01/2024 1 1 [facility] for referral (narrative)* Diagnostic Procedure Only (Routine) - Closed Specialty Diagnoses / Procedures Referred By Contac t Referred To Contact XR IMAGING Diagnoses Foot pain, left Procedures XR FOOT GENERAL 3V AP/LAT/OBL LEFT RADEX FOOT COMPLETE MINIMUM 3 VIEWS Rick Sow MD [facility] [place] [address] [place] [address] Referral ID Status Reason Start Date Expiration Date V isits Requested Visits Authorized [id number] Closed Auto-Generate d Referral 03/28/2022 04/27/2023 1 1 [facility] (narrative)No reason for referral information availableTiff Robotronica Services Work Phone: Reason for visit Narrative* Diagnostic Procedure Only (Routine) - Closed Specialty Diagnoses / Procedures Referred By Elijah t Referred To Contact XR IMAGING Diagnoses Foot pain, left Procedures XR FOOT GENERAL 3V AP/LAT/OBL LEFT RADEX FOOT COMPLETE MINIMUM 3 VIEWS Rick Sow MD [address] [place] [address] [place] [address] Referral ID Status Reason Start Date Expiration Date V isits Requested Visits Authorized [id number] Closed Auto-Generate d Referral 03/28/2022 04/27/2023 1 1 [facility] Family History No Family History Records Found Relationship Condition Age at Onset Recorded Date/T tonia father Malignant neoplasm Unknown mother Diabetes mellitus Unknown Relationship Condition Age at Onset Recorded Date/T tonia father Malignant neoplasm Unknown mother Diabetes mellitus Unknown Congestive heart failure Unknown sister Hypertension Unknown Malignant neoplasm of pancreas Unknown brother Hypertension Unknown Chronic obstructive pulmonary disease Unk nown Reason for Referral Specialty Diagnoses / Procedures Referred By Elijah ventura Referred To Contact Nutrition Diagnoses Type 2 diabetes mellitus without complication, without long-term current use of insulin (HCC) Procedures CONSULT TO NUTRITION THERAPY OFFICE/OUTPATIENT NEW HIGH [place]DM 60-[place] [address] [place] [id number] Referral ID Status Reason Start Date Expiration Date Visits Requested Visits Authorized [id number] Authorized PCP Requested Referral 11/29/2021 11/29/2022 1 1 Specialty Diagnoses / Procedures Referred By Elijah ventura Referred To Contact CT IMAGING Diagnoses Family history of pancreatic cancer Procedures CT PANCREAS W IVCON CT ABDOMEN W/CONTRAST Rick Sow MD [address] [place] [address] [place] [address] Referral ID Status Reason Start Date Expiration Date Visits Requested Visits Authorized [id number] Authorized Auto-Generat ed Referral 04/08/2023 05/07/2024 1 1 Referral ID Status Reason Start Date Expiration Date V isits Requested Visits Authorized [id number] Closed Auto-Generate d Referral 04/08/2023 05/07/2024 1 1 Specialty Diagnoses / Procedures Referred By Contac t Referred To Contact Diagnoses Uncontrolled type 2 diabetes mellitus with hyperglycemia (HCC) 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) Procedures CONSULT TO DIABETES EDUCATION DSME/MNT MEDICAL NUTRITION ASSMT&IVNTJ INDIV EACH 15 ID MEDICAL NUTRITION ASSMT&IVNTJ INDIV EACH 15 ID MEDICAL NUTRITION ASSMT&IVNTJ INDIV EACH 15 ID MEDICAL NUTRITION ASSMT&IVNTJ INDIV EACH 15 ID Farzana Kelly PA-C [address] [place] [address] [facility] [address] [address] [place] [address] Referral ID Status Reason Start Date Expiration Date Visits Requested Visits Authorized [id number] Authorized PCP Requested Referral 10/01/2023 09/30/2024 1 1 Specialty Diagnoses / Procedures Referred By Elijah t Referred To Contact Diagnoses Neck pain Neck muscle spasm Farzana Kelly PA-C [address] [place] [address] Referral ID Status Reason Start Date Expiration Date Visits Re quested Visits Authorized [id number] Closed 1 1 Health Concerns Infection Onset Date Last Indicated Resolved Time COVID-19 Rule-Out 02/26/2022 02/26/2022 Chief Complaint and Reason for Visit Reason for Visit Personal history of colonic polyps Chief Complaint Admit Date INFLUENZA A WITH ACUTE RESPIRATORY INSUF FIENCY August 15, 2024 11:17pm INFLUENZA A WITH ACUTE RESPIRATORY INSUF FIENCY August 16, 2024 7:27am INFLUENZA A WITH ACUTE RESPIRATORY INSUF FIENCY August 17, 2024 8:39am INFLUENZA A WITH ACUTE RESPIRATORY INSUF FIENCY August 17, 2024 2:27pm INFLUENZA A WITH ACUTE RESPIRATORY INSUF FIENCY August 18, 2024 7:38am INFLUENZA A WITH ACUTE RESPIRATORY INSUF FIENCY August 18, 2024 8:33am INFLUENZA A WITH ACUTE RESPIRATORY INSUF FIENCY August 19, 2024 2:01pm Hospital FU September 23, 2024 2:1 2pm S/P ([facility] 08/15/24) September 24, 2024 10: 54am [facility] October 16, 2024 6:34 am [facility] October 19, 2024 9:03 am Reason for Visit Admit Date Former smoker August 15, 2024 1 1:17pm Influenza A August 15, 2024 1 1:17pm Lactic acidosis August 15, 2024 1 1:17pm Pneumonia August 15, 2024 1 1:17pm Respiratory insufficiency August 15, 2024 11:17pm Sepsis August 15, 2024 1 1:17pm Syncope August 15, 2024 1 1:17pm Morbid obesity with BMI of 40.0-44.9, ad ult August 15, 2024 11:17pm COPD exacerbation August 15, 2024 1 1:17pm Abnormal chest CT September 23, 2024 2:1 2pm Shortness of breath September 23, 2024 2:1 2pm Hypoxia September 23, 2024 2:1 2pm Morbid obesity with BMI of 40.0-44.9, ad ult September 23, 2024 2:12pm Sleep apnea September 23, 2024 2:1 2pm Carotid artery disease September 24, 2024 10:54am Diabetes mellitus September 24, 2024 10: 54am Dyslipidemia September 24, 2024 10: 54am Dyspnea on exertion September 24, 2024 10: 54am HTN (hypertension) September 24, 2024 10: 54am Hypoxia September 24, 2024 10: 54am Morbid obesity September 24, 2024 10: 54am Sleep apnea September 24, 2024 10: 54am Chief Complaint Admit Date INFLUENZA A WITH ACUTE RESPIRATORY INSUF FIENCY August 15, 2024 11:17pm INFLUENZA A WITH ACUTE RESPIRATORY INSUF FIENCY August 16, 2024 7:27am INFLUENZA A WITH ACUTE RESPIRATORY INSUF FIENCY August 17, 2024 8:39am INFLUENZA A WITH ACUTE RESPIRATORY INSUF FIENCY August 17, 2024 2:27pm INFLUENZA A WITH ACUTE RESPIRATORY INSUF FIENCY August 18, 2024 7:38am INFLUENZA A WITH ACUTE RESPIRATORY INSUF FIENCY August 18, 2024 8:33am INFLUENZA A WITH ACUTE RESPIRATORY INSUF FIENCY August 19, 2024 2:01pm Hospital September 23, 2024 2:1 2pm S/P ([facility] 08/15/24) September 24, 2024 10: 54am [facility] October 16, 2024 6:34 am [facility] October 19, 2024 9:03 am R06.02 - Shortness of breath October 28, 2024 12:31pm R06.02 - Shortness of breath October 29, 2024 12:36pm R06.02 - Shortness of breath October 30, 2024 10:45am Abnormal findings on diagnostic imaging of other s November 02, 2024 12:55pm Chief Complaint Admit Date INFLUENZA A WITH ACUTE RESPIRATORY INSUF FIENCY August 15, 2024 11:17pm INFLUENZA A WITH ACUTE RESPIRATORY INSUF FIENCY August 19, 2024 2:01pm Hospital FU September 23, 2024 2:1 2pm S/P ([facility] 08/15/24) September 24, 2024 10: 54am [facility] October 16, 2024 6:34 am [facility] October 19, 2024 9:03 am R06.02 - Shortness of breath October 28, 2024 12:31pm R06.02 - Shortness of breath October 29, 2024 12:36pm R06.02 - Shortness of breath October 30, 2024 10:45am Abnormal findings on diagnostic imaging of other s November 02, 2024 12:55pm 7 WK FU November 13, 2024 11:10a m R09.02 - Hypoxemia December 15, 2024 11:00 am Reason for Visit Admit Date Former smoker August 15, 2024 1 1:17pm Influenza A August 15, 2024 1 1:17pm Lactic acidosis August 15, 2024 1 1:17pm Pneumonia August 15, 2024 1 1:17pm Respiratory insufficiency August 15, 2024 11:17pm Sepsis August 15, 2024 1 1:17pm Syncope August 15, 2024 1 1:17pm Morbid obesity with BMI of 40.0-44.9, ad ult August 15, 2024 11:17pm COPD exacerbation August 15, 2024 1 1:17pm Abnormal chest CT September 23, 2024 2:1 2pm Shortness of breath September 23, 2024 2:1 2pm Hypoxia September 23, 2024 2:1 2pm Morbid obesity with BMI of 40.0-44.9, ad ult September 23, 2024 2:12pm Sleep apnea September 23, 2024 2:1 2pm Carotid artery disease September 24, 2024 10:54am Diabetes mellitus September 24, 2024 10: 54am Dyslipidemia September 24, 2024 10: 54am Dyspnea on exertion September 24, 2024 10: 54am HTN (hypertension) September 24, 2024 10: 54am Hypoxia September 24, 2024 10: 54am Morbid obesity September 24, 2024 10: 54am Sleep apnea September 24, 2024 10: 54am Abnormal chest CT November 13, 2024 11:10a m Restrictive airway disease November 13, 2024 11:10am Hypoxia November 13, 2024 11:10a m Morbid obesity with BMI of 40.0-44.9, ad ult November 13, 2024 11:10am Sleep apnea November 13, 2024 11:10a m Chief Complaint Admit Date Hospital September 23, 2024 2:1 2pm S/P ([facility] 08/15/24) September 24, 2024 10: 54am [facility] October 16, 2024 6:34 am [facility] October 19, 2024 9:03 am R06.02 - Shortness of breath October 28, 2024 12:31pm R06.02 - Shortness of breath October 29, 2024 12:36pm R06.02 - Shortness of breath October 30, 2024 10:45am Abnormal findings on diagnostic imaging of other s November 02, 2024 12:55pm 7 WK FU November 13, 2024 11:10a m R09.02 - Hypoxemia December 15, 2024 11:00 am 3 M January 14, 2025 10:03 am Reason for Visit Admit Date Abnormal chest CT September 23, 2024 2:1 2pm Shortness of breath September 23, 2024 2:1 2pm Hypoxia September 23, 2024 2:1 2pm Morbid obesity with BMI of 40.0-44.9, ad ult September 23, 2024 2:12pm Sleep apnea September 23, 2024 2:1 2pm Carotid artery disease September 24, 2024 10:54am Diabetes mellitus September 24, 2024 10: 54am Dyslipidemia September 24, 2024 10: 54am Dyspnea on exertion September 24, 2024 10: 54am HTN (hypertension) September 24, 2024 10: 54am Hypoxia September 24, 2024 10: 54am Morbid obesity September 24, 2024 10: 54am Sleep apnea September 24, 2024 10: 54am Abnormal chest CT November 13, 2024 11:10a m Restrictive airway disease November 13, 2024 11:10am Hypoxia November 13, 2024 11:10a m Morbid obesity with BMI of 40.0-44.9, ad ult November 13, 2024 11:10am Sleep apnea November 13, 2024 11:10a m PVC (premature ventricular contraction) January 14, 2025 10:03am Carotid artery disease January 14, 2025 10 :03am Diabetes mellitus January 14, 2025 10:03 am Dyslipidemia January 14, 2025 10:03 am HTN (hypertension) January 14, 2025 10:03 am Hypoxia January 14, 2025 10:03 am Morbid obesity January 14, 2025 10:03 am Sleep apnea January 14, 2025 10:03 am Chief Complaint Admit Date [facility] October 16, 2024 6:34 am [facility] October 19, 2024 9:03 am R06.02 - Shortness of breath October 28, 2024 12:31pm R06.02 - Shortness of breath October 29, 2024 12:36pm R06.02 - Shortness of breath October 30, 2024 10:45am Abnormal findings on diagnostic imaging of other s November 02, 2024 12:55pm 7 WK FU November 13, 2024 11:10a m R09.02 - Hypoxemia December 15, 2024 11:00 am 3 M FU January 14, 2025 10:03 am EORDER January 25, 2025 10:3 2am Reason for Visit Admit Date Abnormal chest CT November 13, 2024 11:10a m Restrictive airway disease November 13, 2024 11:10am Hypoxia November 13, 2024 11:10a m Morbid obesity with BMI of 40.0-44.9, ad ult November 13, 2024 11:10am Sleep apnea November 13, 2024 11:10a m PVC (premature ventricular contraction) January 14, 2025 10:03am Carotid artery disease January 14, 2025 10 :03am Dyslipidemia January 14, 2025 10:03 am HTN (hypertension) January 14, 2025 10:03 am Chief Complaint Admit Date [facility] October 16, 2024 6:34 am F[facility] October 19, 2024 9:03 am R06.02 - Shortness of breath October 28, 2024 12:31pm R06.02 - Shortness of breath October 29, 2024 12:36pm R06.02 - Shortness of breath October 30, 2024 10:45am Abnormal findings on diagnostic imaging of other s November 02, 2024 12:55pm 7 WK FU November 13, 2024 11:10a m R09.02 - Hypoxemia December 15, 2024 11:00 am 3 M FU January 14, 2025 10:03 am EORDER January 25, 2025 10:3 2am PVC January 29, 2025 12:0 3pm Chief Complaint Admit Date R06.02 - Shortness of breath October 28, 2024 12:31pm R06.02 - Shortness of breath October 29, 2024 12:36pm R06.02 - Shortness of breath October 30, 2024 10:45am Abnormal findings on diagnostic imaging of other s November 02, 2024 12:55pm 7 WK FU November 13, 2024 11:10a m R09.02 - Hypoxemia December 15, 2024 11:00 am 3 M FU January 14, 2025 10:03 am EORDER January 25, 2025 10:3 2am PVC January 29, 2025 12:0 3pm 3 M FU February 17, 2025 10: 30am Reason for Visit Admit Date Abnormal chest CT November 13, 2024 11:10a m Restrictive airway disease November 13, 2024 11:10am Hypoxia November 13, 2024 11:10a m Morbid obesity with BMI of 40.0-44.9, ad ult November 13, 2024 11:10am Sleep apnea November 13, 2024 11:10a m PVC (premature ventricular contraction) January 14, 2025 10:03am Carotid artery disease January 14, 2025 10 :03am Dyslipidemia January 14, 2025 10:03 am HTN (hypertension) January 14, 2025 10:03 am Restrictive airway disease February 17, 2 025 10:30am Hypoxia February 17, 2025 10: 30am Morbid obesity with BMI of 40.0-44.9, ad ult February 17, 2025 10:30am Sleep apnea February 17, 2025 10: 30am Chief Complaint Admit Date 7 WK FU November 13, 2024 11:10a m R09.02 - Hypoxemia December 15, 2024 11:00 am 3 M FU January 14, 2025 10:03 am EORDER January 25, 2025 10:3 2am PVC January 29, 2025 12:0 3pm PVC January 29, 2025 12:2 9pm 3 M FU February 17, 2025 10: 30am R93.89 Abnormal findings on diagnostic i maging of March 03, 2025 8:26am Reason for Visit Admit Date Abnormal chest CT November 13, 2024 11:10a m Restrictive airway disease November 13, 2024 11:10am Hypoxia November 13, 2024 11:10a m Morbid obesity with BMI of 40.0-44.9, ad ult November 13, 2024 11:10am Sleep apnea November 13, 2024 11:10a m PVC (premature ventricular contraction) January 14, 2025 10:03am Carotid artery disease January 14, 2025 10 :03am Dyslipidemia January 14, 2025 10:03 am HTN (hypertension) January 14, 2025 10:03 am Nasal congestion February 17, 2025 10: 30am Restrictive airway disease February 17, 2 025 10:30am Hypoxia February 17, 2025 10: 30am Morbid obesity with BMI of 40.0-44.9, ad ult February 17, 2025 10:30am Sleep apnea February 17, 2025 10: 30am Chief Complaint Admit Date R09.02 - Hypoxemia December 15, 2024 11:00 am 3 M FU January 14, 2025 10:03 am EORDER January 25, 2025 10:3 2am PVC January 29, 2025 12:0 3pm PVC January 29, 2025 12:2 9pm 3 M FU February 17, 2025 10: 30am R93.89 Abnormal findings on diagnostic i maging of March 03, 2025 8:26am 1 M FU March 26, 2025 10:51am Reason for Visit Admit Date PVC (premature ventricular contraction) January 14, 2025 10:03am Carotid artery disease January 14, 2025 10 :03am Dyslipidemia January 14, 2025 10:03 am HTN (hypertension) January 14, 2025 10:03 am Nasal congestion February 17, 2025 10: 30am Restrictive airway disease February 17, 2 025 10:30am Hypoxia February 17, 2025 10: 30am Morbid obesity with BMI of 40.0-44.9, ad ult February 17, 2025 10:30am Sleep apnea February 17, 2025 10: 30am Advance Directives No Advanced Directives Records Found Advance Directive Response Recorded Date/ Time Advance Directives No May 3:19pm Living Will No July 05, 2 023 3:16pm Power of Strategic Partnership Specialist No July 05, 2023 3:16pm Advance Directive Response Recorded Date/ Time Living Will No August 16 3:13am Do you have a Healthcare Power of Strategic Partnership Specialist? No August 16, 2024 3:13am Advance Directives No May 4:19pm Advance Directive Response Recorded Date/ Time Advance Directives No May 4:19pm Summary Purpose Additional Source Comments Goals (unrecognized section and content) Goals may be documented in a n alternate sectionGoals may be documented in an alternate sectionGoals may be documented in an alternate sectionGoals may be documented in an alternate sectionGoals may be documented in an alternate sectionGoals may be documented in an alternate sectionGoals may be documented in an alternate section Source Comments (unrecognize d section and content) In the event this informatio n is protected by the Federal Confidentiality of Alcohol and Drug Abuse Patient Records regulations: The Federal rules restrict any use of the information to criminally investigate or prosecute any alcohol or drug abuse patient.[facility] CenterIn the event this information is protected by the Federal Confidentiality of Alcohol and Drug Abuse Patient Records regulations: The Federal rules restrict any use of the information to criminally investigate or prosecute any alcohol or drug abuse patient.[facility]In the event this information is protected by the Federal Confidentiality of Alcohol and Drug Abuse Patient Records regulations: The Federal rules restrict any use of the information to criminally investigate or prosecute any alcohol or drug abuse patient.[facility] CenterIn the event this information is protected by the Federal Confidentiality of Alcohol and Drug Abuse Patient Records regulations: The Federal rules restrict any use of the information to criminally investigate or prosecute any alcohol or drug abuse patient.[facility] CenterIn the event this information is protected by the Federal Confidentiality of Alcohol and Drug Abuse Patient Records regulations: The Federal rules restrict any use of the information to criminally investigate or prosecute any alcohol or drug abuse patient.[facility] CenterIn the event this information is protected by the Federal Confidentiality of Alcohol and Drug Abuse Patient Records regulations: The Federal rules restrict any use of the information to criminally investigate or prosecute any alcohol or drug abuse patient.[facility] CenterIn the event this information is protected by the Federal Confidentiality of Alcohol and Drug Abuse Patient Records regulations: The Federal rules restrict any use of the information to criminally investigate or prosecute any alcohol or drug abuse patient.[facility] CenterIn the event this information is protected by the Federal Confidentiality of Alcohol and Drug Abuse Patient Records regulations: The Federal rules restrict any use of the information to criminally investigate or prosecute any alcohol or drug abuse patient.[facility] CenterIn the event this information is protected by the Federal Confidentiality of Alcohol and Drug Abuse Patient Records regulations: The Federal rules restrict any use of the information to criminally investigate or prosecute any alcohol or drug abuse patient.[facility] CenterIn the event this information is protected by the Federal Confidentiality of Alcohol and Drug Abuse Patient Records regulations: The Federal rules restrict any use of the information to criminally investigate or prosecute any alcohol or drug abuse patient.[facility] CenterIn the event this information is protected by the Federal Confidentiality of Alcohol and Drug Abuse Patient Records regulations: The Federal rules restrict any use of the information to criminally investigate or prosecute any alcohol or drug abuse patient.[facility] CenterIn the event this information is protected by the Federal Confidentiality of Alcohol and Drug Abuse Patient Records regulations: The Federal rules restrict any use of the information to criminally investigate or prosecute any alcohol or drug abuse patient.[facility] CenterIn the event this information is protected by the Federal Confidentiality of Alcohol and Drug Abuse Patient Records regulations: The Federal rules restrict any use of the information to criminally investigate or prosecute any alcohol or drug abuse patient.[facility] CenterIn the event this information is protected by the Federal Confidentiality of Alcohol and Drug Abuse Patient Records regulations: The Federal rules restrict any use of the information to criminally investigate or prosecute any alcohol or drug abuse patient.[facility] CenterIn the event this information is protected by the Federal Confidentiality of Alcohol and Drug Abuse Patient Records regulations: The Federal rules restrict any use of the information to criminally investigate or prosecute any alcohol or drug abuse patient.[facility] CenterIn the event this information is protected by the Federal Confidentiality of Alcohol and Drug Abuse Patient Records regulations: The Federal rules restrict any use of the information to criminally investigate or prosecute any alcohol or drug abuse patient.[facility] CenterIn the event this information is protected by the Federal Confidentiality of Alcohol and Drug Abuse Patient Records regulations: The Federal rules restrict any use of the information to criminally investigate or prosecute any alcohol or drug abuse patient.[facility] CenterIn the event this information is protected by the Federal Confidentiality of Alcohol and Drug Abuse Patient Records regulations: The Federal rules restrict any use of the information to criminally investigate or prosecute any alcohol or drug abuse patient.[facility] CenterIn the event this information is protected by the Federal Confidentiality of Alcohol and Drug Abuse Patient Records regulations: The Federal rules restrict any use of the information to criminally investigate or prosecute any alcohol or drug abuse patient.[facility] CenterIn the event this information is protected by the Federal Confidentiality of Alcohol and Drug Abuse Patient Records regulations: The Federal rules restrict any use of the information to criminally investigate or prosecute any alcohol or drug abuse patient.[facility] CenterIn the event this information is protected by the Federal Confidentiality of Alcohol and Drug Abuse Patient Records regulations: The Federal rules restrict any use of the information to criminally investigate or prosecute any alcohol or drug abuse patient.[facility] CenterIn the event this information is protected by the Federal Confidentiality of Alcohol and Drug Abuse Patient Records regulations: The Federal rules restrict any use of the information to criminally investigate or prosecute any alcohol or drug abuse patient.[facility] CenterIn the event this information is protected by the Federal Confidentiality of Alcohol and Drug Abuse Patient Records regulations: The Federal rules restrict any use of the information to criminally investigate or prosecute any alcohol or drug abuse patient.[facility] CenterIn the event this information is protected by the Federal Confidentiality of Alcohol and Drug Abuse Patient Records regulations: The Federal rules restrict any use of the information to criminally investigate or prosecute any alcohol or drug abuse patient.[facility] CenterIn the event this information is protected by the Federal Confidentiality of Alcohol and Drug Abuse Patient Records regulations: The Federal rules restrict any use of the information to criminally investigate or prosecute any alcohol or drug abuse patient.[facility] CenterIn the event this information is protected by the Federal Confidentiality of Alcohol and Drug Abuse Patient Records regulations: The Federal rules restrict any use of the information to criminally investigate or prosecute any alcohol or drug abuse patient.[facility] CenterIn the event this information is protected by the Federal Confidentiality of Alcohol and Drug Abuse Patient Records regulations: The Federal rules restrict any use of the information to criminally investigate or prosecute any alcohol or drug abuse patient.[facility] CenterIn the event this information is protected by the Federal Confidentiality of Alcohol and Drug Abuse Patient Records regulations: The Federal rules restrict any use of the information to criminally investigate or prosecute any alcohol or drug abuse patient.[facility] CenterIn the event this information is protected by the Federal Confidentiality of Alcohol and Drug Abuse Patient Records regulations: The Federal rules restrict any use of the information to criminally investigate or prosecute any alcohol or drug abuse patient.[facility] CenterIn the event this information is protected by the Federal Confidentiality of Alcohol and Drug Abuse Patient Records regulations: The Federal rules restrict any use of the information to criminally investigate or prosecute any alcohol or drug abuse patient.[facility] CenterIn the event this information is protected by the Federal Confidentiality of Alcohol and Drug Abuse Patient Records regulations: The Federal rules restrict any use of the information to criminally investigate or prosecute any alcohol or drug abuse patient.[facility] CenterIn the event this information is protected by the Federal Confidentiality of Alcohol and Drug Abuse Patient Records regulations: The Federal rules restrict any use of the information to criminally investigate or prosecute any alcohol or drug abuse patient.[facility] CenterIn the event this information is protected by the Federal Confidentiality of Alcohol and Drug Abuse Patient Records regulations: The Federal rules restrict any use of the information to criminally investigate or prosecute any alcohol or drug abuse patient.[facility] CenterIn the event this information is protected by the Federal Confidentiality of Alcohol and Drug Abuse Patient Records regulations: The Federal rules restrict any use of the information to criminally investigate or prosecute any alcohol or drug abuse patient.[facility] CenterIn the event this information is protected by the Federal Confidentiality of Alcohol and Drug Abuse Patient Records regulations: The Federal rules restrict any use of the information to criminally investigate or prosecute any alcohol or drug abuse patient.[facility] CenterIn the event this information is protected by the Federal Confidentiality of Alcohol and Drug Abuse Patient Records regulations: The Federal rules restrict any use of the information to criminally investigate or prosecute any alcohol or drug abuse patient.[facility] CenterIn the event this information is protected by the Federal Confidentiality of Alcohol and Drug Abuse Patient Records regulations: The Federal rules restrict any use of the information to criminally investigate or prosecute any alcohol or drug abuse patient.[facility] CenterIn the event this information is protected by the Federal Confidentiality of Alcohol and Drug Abuse Patient Records regulations: The Federal rules restrict any use of the information to criminally investigate or prosecute any alcohol or drug abuse patient.[facility] CenterIn the event this information is protected by the Federal Confidentiality of Alcohol and Drug Abuse Patient Records regulations: The Federal rules restrict any use of the information to criminally investigate or prosecute any alcohol or drug abuse patient.[facility] CenterIn the event this information is protected by the Federal Confidentiality of Alcohol and Drug Abuse Patient Records regulations: The Federal rules restrict any use of the information to criminally investigate or prosecute any alcohol or drug abuse patient.[facility] CenterIn the event this information is protected by the Federal Confidentiality of Alcohol and Drug Abuse Patient Records regulations: The Federal rules restrict any use of the information to criminally investigate or prosecute any alcohol or drug abuse patient.[facility] CenterIn the event this information is protected by the Federal Confidentiality of Alcohol and Drug Abuse Patient Records regulations: The Federal rules restrict any use of the information to criminally investigate or prosecute any alcohol or drug abuse patient.[facility] CenterIn the event this information is protected by the Federal Confidentiality of Alcohol and Drug Abuse Patient Records regulations: The Federal rules restrict any use of the information to criminally investigate or prosecute any alcohol or drug abuse patient.[facility] CenterIn the event this information is protected by the Federal Confidentiality of Alcohol and Drug Abuse Patient Records regulations: The Federal rules restrict any use of the information to criminally investigate or prosecute any alcohol or drug abuse patient.[facility] CenterIn the event this information is protected by the Federal Confidentiality of Alcohol and Drug Abuse Patient Records regulations: The Federal rules restrict any use of the information to criminally investigate or prosecute any alcohol or drug abuse patient.[facility] CenterIn the event this information is protected by the Federal Confidentiality of Alcohol and Drug Abuse Patient Records regulations: The Federal rules restrict any use of the information to criminally investigate or prosecute any alcohol or drug abuse patient.[facility] CenterIn the event this information is protected by the Federal Confidentiality of Alcohol and Drug Abuse Patient Records regulations: The Federal rules restrict any use of the information to criminally investigate or prosecute any alcohol or drug abuse patient.[facility] CenterIn the event this information is protected by the Federal Confidentiality of Alcohol and Drug Abuse Patient Records regulations: The Federal rules restrict any use of the information to criminally investigate or prosecute any alcohol or drug abuse patient.[facility] CenterIn the event this information is protected by the Federal Confidentiality of Alcohol and Drug Abuse Patient Records regulations: The Federal rules restrict any use of the information to criminally investigate or prosecute any alcohol or drug abuse patient.[facility] CenterIn the event this information is protected by the Federal Confidentiality of Alcohol and Drug Abuse Patient Records regulations: The Federal rules restrict any use of the information to criminally investigate or prosecute any alcohol or drug abuse patient.[facility] CenterIn the event this information is protected by the Federal Confidentiality of Alcohol and Drug Abuse Patient Records regulations: The Federal rules restrict any use of the information to criminally investigate or prosecute any alcohol or drug abuse patient.[facility] CenterIn the event this information is protected by the Federal Confidentiality of Alcohol and Drug Abuse Patient Records regulations: The Federal rules restrict any use of the information to criminally investigate or prosecute any alcohol or drug abuse patient.[facility]In the event this information is protected by the Federal Confidentiality of Alcohol and Drug Abuse Patient Records regulations: The Federal rules restrict any use of the information to criminally investigate or prosecute any alcohol or drug abuse patient.[facility] CenterIn the event this information is protected by the Federal Confidentiality of Alcohol and Drug Abuse Patient Records regulations: The Federal rules restrict any use of the information to criminally investigate or prosecute any alcohol or drug abuse patient.[facility] CenterIn the event this information is protected by the Federal Confidentiality of Alcohol and Drug Abuse Patient Records regulations: The Federal rules restrict any use of the information to criminally investigate or prosecute any alcohol or drug abuse patient.[facility] CenterIn the event this information is protected by the Federal Confidentiality of Alcohol and Drug Abuse Patient Records regulations: The Federal rules restrict any use of the information to criminally investigate or prosecute any alcohol or drug abuse patient.[facility] CenterIn the event this information is protected by the Federal Confidentiality of Alcohol and Drug Abuse Patient Records regulations: The Federal rules restrict any use of the information to criminally investigate or prosecute any alcohol or drug abuse patient.[facility] CenterIn the event this information is protected by the Federal Confidentiality of Alcohol and Drug Abuse Patient Records regulations: The Federal rules restrict any use of the information to criminally investigate or prosecute any alcohol or drug abuse patient.[facility] CenterIn the event this information is protected by the Federal Confidentiality of Alcohol and Drug Abuse Patient Records regulations: The Federal rules restrict any use of the information to criminally investigate or prosecute any alcohol or drug abuse patient.[facility] CenterIn the event this information is protected by the Federal Confidentiality of Alcohol and Drug Abuse Patient Records regulations: The Federal rules restrict any use of the information to criminally investigate or prosecute any alcohol or drug abuse patient.[facility] CenterIn the event this information is protected by the Federal Confidentiality of Alcohol and Drug Abuse Patient Records regulations: The Federal rules restrict any use of the information to criminally investigate or prosecute any alcohol or drug abuse patient.[facility] CenterIn the event this information is protected by the Federal Confidentiality of Alcohol and Drug Abuse Patient Records regulations: The Federal rules restrict any use of the information to criminally investigate or prosecute any alcohol or drug abuse patient.[facility] CenterIn the event this information is protected by the Federal Confidentiality of Alcohol and Drug Abuse Patient Records regulations: The Federal rules restrict any use of the information to criminally investigate or prosecute any alcohol or drug abuse patient.[facility] CenterIn the event this information is protected by the Federal Confidentiality of Alcohol and Drug Abuse Patient Records regulations: The Federal rules restrict any use of the information to criminally investigate or prosecute any alcohol or drug abuse patient.[facility] CenterIn the event this information is protected by the Federal Confidentiality of Alcohol and Drug Abuse Patient Records regulations: The Federal rules restrict any use of the information to criminally investigate or prosecute any alcohol or drug abuse patient.[facility] CenterIn the event this information is protected by the Federal Confidentiality of Alcohol and Drug Abuse Patient Records regulations: The Federal rules restrict any use of the information to criminally investigate or prosecute any alcohol or drug abuse patient.[facility] CenterIn the event this information is protected by the Federal Confidentiality of Alcohol and Drug Abuse Patient Records regulations: The Federal rules restrict any use of the information to criminally investigate or prosecute any alcohol or drug abuse patient.[facility] CenterIn the event this information is protected by the Federal Confidentiality of Alcohol and Drug Abuse Patient Records regulations: The Federal rules restrict any use of the information to criminally investigate or prosecute any alcohol or drug abuse patient.[facility] Reason for Visit (unrecogniz ed section and content) Reason Comments Recheck 4 months Reason Comments Patient Education Assessment Specialty Diagnoses / Procedures Referred By Contac t Referred To Contact Nutrition Diagnoses Type 2 diabetes mellitus without complication, without long-term current use of insulin (HCC) Procedures CONSULT TO NUTRITION THERAPY OFFICE/OUTPATIENT [facility] 60-74 MINUTES Rick Sow MD [address] [place] [address] Referral ID Status Reason Start Date Expiration Date V isits Requested Visits Authorized [id number] Closed PCP Requested Referral 11/29/2021 11/29/2022 1 [...] CT PANCREAS W IVCON CT ABDOMEN W/CONTRAST Rick Sow MD [address] [place] [address] [place] [address] Referral ID Status Reason Start Date Expiration Date V isits Requested Visits Authorized [id number] Closed Auto-Generate d Referral 04/08/2023 05/07/2024 1 1 Reason Comments Outside Pathology Report Reason Onset Date Comments Refill Request 08/22/2023 Reason Comments 6 Month Exam Reason Comments Patient Question Specialty Diagnoses / Procedures Referred By Elijah t Referred To Contact Diagnoses Uncontrolled type 2 diabetes mellitus with hyperglycemia (HCC) 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) Procedures CONSULT TO DIABETES EDUCATION DSME/MNT MEDICAL NUTRITION ASSMT&IVNTJ INDIV EACH 15 ID MEDICAL NUTRITION ASSMT&IVNTJ INDIV EACH 15 ID MEDICAL NUTRITION ASSMT&IVNTJ INDIV EACH 15 ID MEDICAL NUTRITION ASSMT&IVNTJ INDIV EACH 15 ID Farzana Kelly PA-C [address] [place] [address] [facility] [address] [place] [address] Referral ID Status Reason Start Date Expiration Date V isits Requested Visits Authorized [id number] Closed PCP Requested Referral 10/01/2023 09/30/2024 1 1 Reason Onset Date Comments Refill Request 12/05/2023 Reason Comments outside opthomology Reason Comments Medicare Wellness Exam Reason Comments Imm/Inj Reason Comments Neck Pain Reason Comments Neck Pain X 2 weeks Reason Comments Patient Question Patient Update Reason Comments Cough X 1 week, sob x 1mon th Reason Comments Hospital F/U [facility] Reason Comments Infectious Disease Consult Reason Comments Outside Pulm Reason Comments D/C Summary Events Reason Comments Hospital F/U Reason Onset Date Comments Transition Of Care 09/07/2024 Follow up day 19 Reason Comments 6 Month Exam Reason Onset Date Comments Refill Request 10/09/2024 Reason Comments Stress Test Outside facility Reason Comments Outside Imaging CT Reason Comments Outside Cardiology Reason Comments Outside [id number] Ordered Reason Comments Abstract DM Eye visit Reason Comments Outside Pulmonary Care Teams (unrecognized sec tion and content) 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 Specialty Start Date End Date Rick Sow MD [address] [place] [address] PCP - General Family Practice 03/11/21 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 Specialty Start Date End Date Rick Sow MD [address] [place] [address] PCP - General Family Practice 03/11/21 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 Specialty Start Date End Date Rick Sow MD [address] [facility] [place] [address] PCP - General Family Practice 03/11/21 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 Specialty Start Date End Date Rick Sow MD [facility] [place] [address] PCP - General Family Practice 03/11/21 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 Specialty Start Date End Date Rick Sow MD [facility] [place] [address] PCP - General Family Practice 03/11/21 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 Specialty Start Date End Date Rick Sow MD [address] [place] [address], [place] [address] PCP - General Family Practice 03/11/21 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 Specialty Start Date End Date Rick Sow MD [address] [place] [address], [place] [address] PCP - General Family Medicine 03/11/21 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 Specialty Start Date End Date Rick Sow MD [address] [place] [address], [place] [address] PCP - General Family Medicine 03/11/21 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 Specialty Start Date End Date Rick Sow MD [facility] [place] [address] PCP - General Family Medicine 03/11/21 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 Specialty Start Date End Date Rick Sow MD [address] [place] [address], [place] [address] PCP - General Family Medicine 03/11/21 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 Specialty Start Date End Date Rick Sow MD [address] [place] [address], [place] [address] PCP - General Family Medicine 03/11/21 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 Specialty Start Date End Date Rick Sow MD [address] [place] [address] PCP - General Family Medicine 03/11/21 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 Specialty Start Date End Date Rick Sow MD [address] [place] [address] PCP - General Family Medicine 03/11/21 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 Specialty Start Date End Date Rick Sow MD [address] [place] [address] PCP - General Family Medicine 03/11/21 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 Specialty Start Date End Date Rick Sow MD [address] [place] [address] PCP - General Family Medicine 03/11/21 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 Specialty Start Date End Date Rick Sow MD [address] [place] [address] PCP - General Family Medicine 03/11/21 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 Specialty Start Date End Date Rick Sow MD [address] [place] [address] PCP - General Family Medicine 03/11/21 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 Specialty Start Date End Date Rick Sow MD [address] [place] [address] PCP - General Family Medicine 03/11/21 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 Specialty Start Date End Date Rick Sow MD [address] [place] [address] PCP - General Family Medicine 03/11/21 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 Specialty Start Date End Date Rick Sow MD [address] [place] [address] PCP - General Family Medicine 03/11/21 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 Specialty Start Date End Date Rick Sow MD [address] [place] [address] PCP - General Family Medicine 03/11/21 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 Specialty Start Date End Date Rick Sow MD [address] [place] [address] PCP - General Family Medicine 03/11/21 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 Specialty Start Date End Date Rick Sow MD [address] [place] [address] PCP - General Family Medicine 03/11/21 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 Specialty Start Date End Date Rick Sow MD [address] [place] [address] PCP - General Family Medicine 03/11/21 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 Specialty Start Date End Date Rick Sow MD [address] [place] [address] PCP - General Family Medicine 03/11/21 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 Specialty Start Date End Date Rick Sow MD [address] [place] [address] PCP - General Family Medicine 03/11/21 Team Status: Active Member Role Status Dates Dr. James De Anda III, MD Family Provider Active Dr. Rick Sow MD Primary Care Provider Active Team Status: Active Member Role Status Dates Dr. Kishore De Anda MD Attending Provider, Other Prov ider Active Dr. Rick Sow MD Primary Care Provider, Referri ng Provider Active Team Status: Inactive Member Role Status Dates Dr. Kishore De Anda MD Attending Provider Active Dr. Rick Sow MD Primary Care Provider, Referri ng Provider Active 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 Specialty Start Date End Date Rick Sow MD [address] [place] [address] PCP - General Family Medicine 03/11/21 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 Specialty Start Date End Date Rick Sow MD [address] [place] [address] PCP - General Family Medicine 03/11/21 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 Specialty Start Date End Date Rick Sow MD [address] [place] [address] PCP - General Family Medicine 03/11/21 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 Specialty Start Date End Date Rick Sow MD [address] [place] [address] PCP - General Family Medicine 03/11/21 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 Specialty Start Date End Date Rick Sow MD [address] [place] [address] PCP - General Family Medicine 03/11/21 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 Specialty Start Date End Date Rick Sow MD [address] [place] [address] PCP - General Family Medicine 03/11/21 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 Specialty Start Date End Date Rick Sow MD [address] [place] [address] PCP - General Family Medicine 03/11/21 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 Specialty Start Date End Date Rick Sow MD [address] [place] [address] PCP - General Family Medicine 03/11/21 Bethanie Ramos APRN.WELFARE ELIGIBILITY WORKER [address] [place] [address] [employer] [facility] 06/20/24 Farzana Kelly PA-C [address] [place] [address] [employer] [facility] 06/20/24 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 Specialty Start Date End Date Rick Sow MD [address] [place] [address] PCP - General Family Medicine 03/11/21 Bethanie Ramos, CHANG.WELFARE ELIGIBILITY WORKER [address] [place] [address] [employer] [facility] 06/20/24 Farzana Kelly PA-C [address] [place] [address] [employer] [facility] 06/20/24 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 Specialty Start Date End Date Rick Sow MD [address] [place] [address] PCP - General Family Medicine 03/11/21 Bethanie Ramos, ASSEMBLY RIVETER.WELFARE ELIGIBILITY WORKER [address] [place] [address] [employer] [facility] 06/20/24 Farzana Kelly PA-C [address] [place] [address] [employer] [facility] 06/20/24 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 Specialty Start Date End Date Rick Sow MD [address] [place] [address] PCP - General Family Medicine 03/11/21 Bethanie Ramos APRN.WELFARE ELIGIBILITY WORKER [address] [place] [address] [employer] [facility] 06/20/24 Farzana Kelly PA-C [address] [place] [address] [facility] 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 Specialty Start Date End Date Rick Sow MD [address] [place] [address] PCP - General Family Medicine 03/11/21 Bethanie Ramos, CHANG.WELFARE ELIGIBILITY WORKER [address] [place] [address] [employer] [facility] 06/20/24 Farzana Kelly PA-C [address] [place] [address] [employer] [facility] 06/20/24 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 Specialty Start Date End Date Rick Sow MD [address] [place] [address] PCP - General Family Medicine 03/11/21 Bethanie Ramos, ASSEMBLY RIVETER.WELFARE ELIGIBILITY WORKER [address] [place] [address] [employer] [facility] 06/20/24 Farzana Kelly PA-C [address] [place] [address] [employer] [facility] 06/20/24 Alesia Shrestha RN [address] [place], [place] [address] Primary [employer] 08/20/24 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 Specialty Start Date End Date Rick Sow MD [address] [place] [address] PCP - General Family Medicine 03/11/21 Bethanie Ramos APRN.WELFARE ELIGIBILITY WORKER [address] [place] [address] [employer] [facility] 06/20/24 Farzana Kelly PA-C [address] [place] [address] [employer] [facility] 06/20/24 Alesia Shrestha RN [address] [place] [address] Primary Care Operator Supply 08/20/24 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 Specialty Start Date End Date Rick Sow MD [address] [place] [address] PCP - General Family Medicine 03/11/21 Bethanie Ramos APRN.WELFARE ELIGIBILITY WORKER [address] [place] [address] [employer] [facility] 06/20/24 Farzana Kelly PA-C [address] [place] [address] [employer] [facility] 06/20/24 Alesia Shrestha, AYALA [address] [place] [address] Primary Care Operator Supply 08/20/24 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 Specialty Start Date End Date Rick Sow MD [address] [place] [address] PCP - General Family Medicine 03/11/21 Bethanie Ramos, ASSEMBLY RIVETER.WELFARE ELIGIBILITY WORKER [address] [place] [address] [facility]24 Farzana Kelly PA-C [address] [place] [address] [employer] [facility] 06/20/24 Alesia Shrestha, AYALA [address] [place] [address] Primary Care Operator Supply 08/20/24 08/28/24 Tarik Klein, AYALA [address] [place] [address] Primary Care Operator Supply 08/28/24 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 Specialty Start Date End Date Rick Sow MD [address] [place] [address] PCP - General Family Medicine 03/11/21 Bethanie Ramos, ASSEMBLY RIVETER.WELFARE ELIGIBILITY WORKER [address] [place] [address] [employer] [facility] 06/20/24 Farzana Kelly PA-C [address] [place] [address] [employer] [facility] 06/20/24 Tarik Klein, AYALA [address] [place] [address] Primary Care Operator Supply 08/28/24 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 Specialty Start Date End Date Rick Sow MD [address] [place] [address] PCP - General Family Medicine 03/11/21 Bethanie Ramos APRN.WELFARE ELIGIBILITY WORKER [facility] [place] [address] [employer] [facility] 06/20/24 Farzana Kelly PA-C [address] [place] [address] [facility] 06/[facility]/24 Tarik Klein RN [address] [place] [address] Primary Care Operator Supply 08/28/24 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 Specialty Start Date End Date Rick Sow MD [address] [place] [address] PCP - General Family Medicine 03/11/21 Bethanie Ramos, ASSEMBLY RIVETER.WELFARE ELIGIBILITY WORKER [facility] [place] [address] [employer] [facility] 06/20/24 Farzana Kelly PA-C [address] [place] [address] [facility] 06/[facility]/24 Tarik Klein, AYALA [address] [place] [address] Primary Care Operator Supply 08/28/24 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 Specialty Start Date End Date Rick Sow MD [address] [place] [address] PCP - General Family Medicine 03/11/21 Bethanie Ramos APRN.WELFARE ELIGIBILITY WORKER [address] [place] [address] [employer] [facility] 06/20/24 Farzana Kelly PA-C [address] [place] [address] [employer] [facility] 06/20/24 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 Specialty Start Date End Date Rick Sow MD [address] [place] [address] PCP - General Family Medicine 03/11/21 Bethanie Ramos APRN.WELFARE ELIGIBILITY WORKER [address] [place] [address] [employer] [facility] 06/20/24 Farzana Kelly PA-C [address] [place] [address] [employer] [facility] 06/20/24 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 Specialty Start Date End Date Rick Sow MD [address] [place] [address] PCP - General Family Medicine 03/11/21 Bethanie Ramos ASSEMBLY RIVETER.WELFARE ELIGIBILITY WORKER [address] [place] [address] [employer] [facility] 06/20/24 Farzana Kelly PA-C [address] [place] [address] [employer] [facility] 06/20/24 Team Status: Active Member Role Status Dates Dr. Rick Sow MD Primary Care Provider Active Team Status: Inactive Member Role Status Dates Dr. Rick Sow MD Primary Care Provider Active Start: August 15, 2024 End: August 19, 2024 Dr. Vera Orta DO Emergency Provider Active Start: August 15, 2024 End: August 19, 2024 Dr. Tanner Bah DO Admit Provider Active Start: August 15, 2024 End: August 19, 2024 Dr. Tanner Bah DO Other Provider Active Start: August 15, 2024 End: August 19, 2024 Dr. Kishore Glover MD Other Provider Active Start: August 15, 2024 End: August 19, 2024 Dr. Buck Bray MD Other Provider Active Start: August 15, 2024 End: August 19, 2024 Dr. David Wallis MD Other Provider Active Start: August 15, 2024 End: August 19, 2024 Dr. Yuri Chester MD Other Provider Active Star t: August 15, 2024 End: August 19, 2024 Dr. Edd Perez DO Other Provider Active Start : August 15, 2024 End: August 19, 2024 Dr. Tanner Rosales MD Other Provider Active Sta rt: August 15, 2024 End: August 19, 2024 Dr. Alonso Power MD Other Provider Active St art: August 15, 2024 End: August 19, 2024 Dr. Jorge Corrales MD Other Provider Active S tart: August 15, 2024 End: August 19, 2024 Dr. Carol Mcgregor MD Other Provider Active Start: August 15, 2024 End: August 19, 2024 Dr. Salvador Craig MD Other Provider Active Start : August 15, 2024 End: August 19, 2024 Dr. Mike Zavala MD Other Provider Active Start: August 15, 2024 End: August 19, 2024 Dr. Yariel Wen MD Other Provider Active Start : August 15, 2024 End: August 19, 2024 Dr. Mariya Ibanez MD Other Provider Active Star t: August 15, 2024 End: August 19, 2024 Dr. Elizabeth Castorena MD Other Provider Active Sta rt: August 15, 2024 End: August 19, 2024 Dr. Trina Conn MD Other Provider Active Sta rt: August 15, 2024 End: August 19, 2024 Dr. Torrey Rogers MD Other Provider Active Star t: August 15, 2024 End: August 19, 2024 Dr. Lavelle Su MD Other Provider Active St art: August 15, 2024 End: August 19, 2024 Dr. Mitch Cardozo MD Other Provider Active Star t: August 15, 2024 End: August 19, 2024 Dr. Rasheed Bravo , Other Provider Active St art: August 15, 2024 End: August 19, 2024 Dr. Donta Patton MD Other Provider Active Start: August 15, 2024 End: August 19, 2024 Dr. Ky Virgen MD Other Provider Active St art: August 15, 2024 End: August 19, 2024 Dr. Mary Delcid , Other Provider Active Start: August 15, 2024 End: August 19, 2024 Dr. Jay Cornell MD Other Provider Active Star t: August 15, 2024 End: August 19, 2024 Dr. Raymond House MD Other Provider Active Sta rt: August 15, 2024 End: August 19, 2024 Dr. Mack An MD Attending Provider Active Start: August 15, 2024 End: August 19, 2024 Team Status: Active Member Role Status Dates Dr. iRck Sow MD Primary Care Provider Active Start: August 16, 2024 Dr. Vera Orta DO Emergency Provider Active Start: August 16, 2024 Dr. Tanner Bah DO Admit Provider Active Start: August 16, 2024 Dr. Tanner Bah DO Other Provider Active Start: August 16, 2024 Dr. Mack An MD Attending Provider Active Start: August 16, 2024 Dr. Mack An MD Other Provider Active Sta rt: August 16, 2024 Team Status: Active Member Role Status Dates Dr. Rick Sow MD Primary Care Provider Active Start: August 17, 2024 Dr. Vera Orta DO Emergency Provider Active Start: August 17, 2024 Dr. Tanner Bah DO Admit Provider Active Start: August 17, 2024 Dr. Tanner Bah DO Other Provider Active Start: August 17, 2024 Dr. Mack An MD Attending Provider Active Start: August 17, 2024 Dr. Mack An MD Other Provider Active Sta rt: August 17, 2024 Dr. Kishore Glover MD Other Provider Active Start: August 17, 2024 Team Status: Active Member Role Status Dates Dr. Rick Swo MD Primary Care Provider Active Start: August 17, 2024 Dr. Luis E Rahman MD Attending Provider Active S tart: August 17, 2024 Dr. Tanner Bah DO Referring Provider Active Start: August 17, 2024 Team Status: Active Member Role Status Dates Dr. Rick Sow MD Primary Care Provider Active Start: August 17, 2024 Dr. Sanchez Lua MD Attending Provider Active S tart: August 17, 2024 Team Status: Active Member Role Status Dates Dr. Rick Sow MD Primary Care Provider Active Start: August 17, 2024 Dr. Vera Orta DO Emergency Provider Active Start: August 17, 2024 Dr. Tanner Bah DO Admit Provider Active Start: August 17, 2024 Dr. Tanner Bah DO Other Provider Active Start: August 17, 2024 Dr. Mack An MD Referring Provider Active Start: August 17, 2024 Dr. Mack An MD Other Provider Active Sta rt: August 17, 2024 Dr. Kishore Glover MD Other Provider Active Start: August 17, 2024 Dr. Buck Bray MD Other Provider Active Start: August 17, 2024 Dr. David Wallis MD Other Provider Active Start: August 17, 2024 Dr. Yuri Chester MD Other Provider Active Star t: August 17, 2024 Dr. Edd Perez DO Attending Provider Active S tart: August 17, 2024 Dr. Edd Perez DO Other Provider Active Start : August 17, 2024 Dr. Tanner Rosales MD Other Provider Active Sta rt: August 17, 2024 Dr. Alonso Power MD Other Provider Active St art: August 17, 2024 Dr. Jorge Corrales MD Other Provider Active S tart: August 17, 2024 Dr. Carol cMgregor MD Other Provider Active Start: August 17, 2024 Dr. Salvador Craig MD Other Provider Active Start : August 17, 2024 Dr. Mike Zavala MD Other Provider Active Start: August 17, 2024 Dr. Yariel Wen MD Other Provider Active Start : August 17, 2024 Dr. Mariya Ibanez MD Other Provider Active Star t: August 17, 2024 Dr. Elizabeth Castorena MD Other Provider Active Sta rt: August 17, 2024 Dr. Trina Conn MD Other Provider Active Sta rt: August 17, 2024 Dr. Torrey Rogers MD Other Provider Active Star t: August 17, 2024 Dr. Lavelle Su MD Other Provider Active St art: August 17, 2024 Dr. Mitch Cardozo MD Other Provider Active Star t: August 17, 2024 Dr. Rasheed Bravo DO Other Provider Active St art: August 17, 2024 Dr. Donta Patton MD Other Provider Active Start: August 17, 2024 Dr. Ky Virgen MD Other Provider Active St art: August 17, 2024 Dr. Mary Delcid DO Other Provider Active Start: August 17, 2024 Dr. Jay Cornell MD Other Provider Active Star t: August 17, 2024 Dr. Raymond House MD Other Provider Active Sta rt: August 17, 2024 Team Status: Active Member Role Status Dates Dr. Rick Sow MD Primary Care Provider Active Start: August 18, 2024 Dr. Vera Orta DO Emergency Provider Active Start: August 18, 2024 Dr. Tanner Bah DO Admit Provider Active Start: August 18, 2024 Dr. Tanner Bah DO Other Provider Active Start: August 18, 2024 Dr. Mack An MD Referring Provider Active Start: August 18, 2024 Dr. Mack An MD Other Provider Active Sta rt: August 18, 2024 Dr. Kishore Glover MD Other Provider Active Start: August 18, 2024 Dr. Buck Bray MD Other Provider Active Start: August 18, 2024 Dr. David Wallis MD Other Provider Active Start: August 18, 2024 Dr. Yuri Chester MD Other Provider Active Star t: August 18, 2024 Dr. Edd Perez DO Attending Provider Active S tart: August 18, 2024 Dr. Edd Perez DO Other Provider Active Start : August 18, 2024 Dr. Tanner Rosales MD Other Provider Active Sta rt: August 18, 2024 Dr. Alonso Power MD Other Provider Active St art: August 18, 2024 Dr. Jorge Corrales MD Other Provider Active S tart: August 18, 2024 Dr. Carol Mcgregor MD Other Provider Active Start: August 18, 2024 Dr. Salvador Craig MD Other Provider Active Start : August 18, 2024 Dr. Mike Zavala MD Other Provider Active Start: August 18, 2024 Dr. Yariel Wen MD Other Provider Active Start : August 18, 2024 Dr. Mariya Ibanez MD Other Provider Active Star t: August 18, 2024 Dr. Elizabeth Castorena MD Other Provider Active Sta rt: August 18, 2024 Dr. Trina Conn MD Other Provider Active Sta rt: August 18, 2024 Dr. Torrey Rogers MD Other Provider Active Star t: August 18, 2024 Dr. Lavelle Su MD Other Provider Active St art: August 18, 2024 Dr. Mitch Cardozo MD Other Provider Active Star t: August 18, 2024 Dr. Rasheed Bravo DO Other Provider Active St art: August 18, 2024 Dr. Donta Patton MD Other Provider Active Start: August 18, 2024 Dr. Ky Virgen MD Other Provider Active St art: August 18, 2024 Dr. Mary Delcid DO Other Provider Active Start: August 18, 2024 Dr. Jay Cornell MD Other Provider Active Star t: August 18, 2024 Dr. Raymond House MD Other Provider Active Sta rt: August 18, 2024 Team Status: Active Member Role Status Dates Dr. Rick Sow MD Primary Care Provider Active Start: August 18, 2024 Dr. Vera Orta DO Emergency Provider Active Start: August 18, 2024 Dr. Tanner Bah DO Admit Provider Active Start: August 18, 2024 Dr. Tanner Bah DO Other Provider Active Start: August 18, 2024 Dr. Mack An MD Attending Provider Active Start: August 18, 2024 Dr. Mack An MD Other Provider Active Sta rt: August 18, 2024 Dr. Kishore Glover MD Other Provider Active Start: August 18, 2024 Dr. Buck Bray MD Other Provider Active Start: August 18, 2024 Dr. David Wallis MD Other Provider Active Start: August 18, 2024 Dr. Yuri Chester MD Other Provider Active Star t: August 18, 2024 Dr. Edd Perez DO Other Provider Active Start : August 18, 2024 Dr. Tanner Rosales MD Other Provider Active Sta rt: August 18, 2024 Dr. Alonso Power MD Other Provider Active St art: August 18, 2024 Dr. Jorge Corrales MD Other Provider Active S tart: August 18, 2024 Dr. Carol Mcgregor MD Other Provider Active Start: August 18, 2024 Dr. Salvador Craig MD Other Provider Active Start : August 18, 2024 Dr. Mike Zavala MD Other Provider Active Start: August 18, 2024 Dr. Yariel Wen MD Other Provider Active Start : August 18, 2024 Dr. Mariya Ibanez MD Other Provider Active Star t: August 18, 2024 Dr. Elizabeth Castorena MD Other Provider Active Sta rt: August 18, 2024 Dr. Trina Conn MD Other Provider Active Sta rt: August 18, 2024 Dr. Torrey Rogers MD Other Provider Active Star t: August 18, 2024 Dr. Lavelle Su MD Other Provider Active St art: August 18, 2024 Dr. Mitch Cardozo MD Other Provider Active Star t: August 18, 2024 Dr. Rasheed Bravo DO Other Provider Active St art: August 18, 2024 Dr. Donta Patton MD Other Provider Active Start: August 18, 2024 Dr. Ky Virgen MD Other Provider Active St art: August 18, 2024 Dr. Mary Delcid DO Other Provider Active Start: August 18, 2024 Dr. Jay Cornell MD Other Provider Active Star t: August 18, 2024 Dr. Raymond House MD Other Provider Active Sta rt: August 18, 2024 Team Status: Active Member Role Status Dates Dr. Rick Sow MD Primary Care Provider Active Start: August 19, 2024 Dr. Vera Orta DO Emergency Provider Active Start: August 19, 2024 Dr. Tanner Bah , Admit Provider Active Start: August 19, 2024 Dr. Tanner Bah DO Other Provider Active Start: August 19, 2024 Dr. Mack An MD Attending Provider Active Start: August 19, 2024 Dr. Mack An MD Other Provider Active Sta rt: August 19, 2024 Dr. Kishore Glover MD Other Provider Active Start: August 19, 2024 Dr. Buck Bray MD Other Provider Active Start: August 19, 2024 Dr. David Wallis MD Other Provider Active Start: August 19, 2024 Dr. Yuri Chester MD Other Provider Active Star t: August 19, 2024 Dr. Edd Perez DO Other Provider Active Start : August 19, 2024 Dr. Tanner Rosales MD Other Provider Active Sta rt: August 19, 2024 Dr. Alonso Power MD Other Provider Active St art: August 19, 2024 Dr. Jorge Corrales MD Other Provider Active S tart: August 19, 2024 Dr. Carol Mcgregor MD Other Provider Active Start: August 19, 2024 Dr. Salvador Craig MD Other Provider Active Start : August 19, 2024 Dr. Mike Zavala MD Other Provider Active Start: August 19, 2024 Dr. Yariel Wen MD Other Provider Active Start : August 19, 2024 Dr. Mariya Ibanez MD Other Provider Active Star t: August 19, 2024 Dr. Elizabeth Castorena MD Other Provider Active Sta rt: August 19, 2024 Dr. Trina Conn MD Other Provider Active Sta rt: August 19, 2024 Dr. Torrey Rogers MD Other Provider Active Star t: August 19, 2024 Dr. Lavelle Su MD Other Provider Active St art: August 19, 2024 Dr. Mitch Cardozo MD Other Provider Active Star t: August 19, 2024 Dr. Rasheed Bravo DO Other Provider Active St art: August 19, 2024 Dr. Donta Patton MD Other Provider Active Start: August 19, 2024 Dr. Ky Virgen MD Other Provider Active St art: August 19, 2024 Dr. Mary Delcid DO Other Provider Active Start: August 19, 2024 Dr. Jay Cornell MD Other Provider Active Star t: August 19, 2024 Dr. Raymond House MD Other Provider Active Sta rt: August 19, 2024 Team Status: Inactive Member Role Status Dates Dr. Rick Sow MD Primary Care Provider Active Start: September 23, 2024 End: September 23, 2024 Dr. Rick Sow MD Referring Provider Active Start: September 23, 2024 End: September 23, 2024 Юлия Bermudez SEWING MACHINE TESTER, SEWING MACHINE TESTER-C Attending Provider Active Start: September 23, 2024 End: September 23, 2024 Team Status: Inactive Member Role Status Dates Dr. Rick Sow MD Primary Care Provider Active Start: September 24, 2024 End: September 24, 2024 Dr. Rick Sow MD Referring Provider Active Start: September 24, 2024 End: September 24, 2024 Dr. Melinda Cifuentes MD Attending Provider Active Start: September 24, 2024 End: September 24, 2024 Team Status: Inactive Member Role Status Dates Dr. Rick Sow MD Primary Care Provider Active Start: October 16, 2024 End: October 16, 2024 Dr. Melinda Cifuentes MD Attending Provider Active Start: October 16, 2024 End: October 16, 2024 Dr. Melinda Cifuentes MD Referring Provider Active Start: October 16, 2024 End: October 16, 2024 Team Status: Active Member Role Status Dates Dr. Rick Sow MD Primary Care Provider Active Start: October 19, 2024 Dr. Melinda Cifuentes MD Attending Provider Active Start: October 19, 2024 Dr. Melinda Cifuentes MD Referring Provider Active Start: October 19, 2024 Dr. 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 Rick Sow MD Primary Care Provider Active Start: October 28, 2024 End: October 28, 2024 Юлия Bermudez SEWING MACHINE TESTER, SEWING MACHINE TESTER-C Attending Provider Active Start: October 28, 2024 End: October 28, 2024 Юлия Bermudez SEWING MACHINE TESTER, SEWING MACHINE TESTER-C Referring Provider Active Start: October 28, 2024 End: October 28, 2024 Team Status: Active Member Role Status Dates Dr. Rick Sow MD Primary Care Provider Active Start: October 29, 2024 Юлия Bermudez SEWING MACHINE TESTER, SEWING MACHINE TESTER-C Referring Provider Active Start: October 29, 2024 Юлия Bermudez SEWING MACHINE TESTER, SEWING MACHINE TESTER-C Other Provider Active Start: October 29, 2024 Dr. Edd Perez DO Attending Provider Active S tart: October 29, 2024 Team Status: Active Member Role Status Dates Dr. Rick Sow MD Primary Care Provider Active Start: October 30, 2024 Юлия Bermudez SEWING MACHINE TESTER, SEWING MACHINE TESTER-C Attending Provider Active Start: October 30, 2024 Юлия Bermudez SEWING MACHINE TESTER, SEWING MACHINE TESTER-C Referring Provider Active Start: October 30, 2024 Team Status: Active Member Role Status Dates Dr. 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 Start Date End Date Rick Sow MD [address] [place] [id number] PCP - General Family Medicine 10/19/24 Bethanie Ramos APRN.CNP [address] [place] [id number] [employer] [facility] 06/[facility]/24 Farzana Kelly PA-C [address] [place] [id number] [facility] 06/20/24 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 Rick Sow MD Primary Care Provider Active Start: October 30, 2024 End: October 30, 2024 Юлия Bermudez SEWING MACHINE TESTER, SEWING MACHINE TESTER-C Attending Provider Active Start: October 30, 2024 End: October 30, 2024 Юлия Bermudez NP, SEWING MACHINE TESTER-C Referring Provider Active Start: October 30, 2024 End: October 30, 2024 Team Status: Inactive Member Role Status Dates Dr. Rick Sow MD Primary Care Provider Active Start: November 02, 2024 End: November 02, 2024 Юлия Bermudez SEWING MACHINE TESTER, SEWING MACHINE TESTER-C Attending Provider Active Start: November 02, 2024 End: November 02, 2024 Юлия Bermudez SEWING MACHINE TESTER, SEWING MACHINE TESTER-C Referring Provider Active Start: November 02, 2024 End: November 02, 2024 Team Status: Inactive Member Role Status Dates Dr. Rick Sow MD Primary Care Provider Active Start: November 13, 2024 End: November 13, 2024 Dr. Rick Sow MD Referring Provider Active Start: November 13, 2024 End: November 13, 2024 Юлия Bermudez NP, SEWING MACHINE TESTER-C Attending Provider Active Start: November 13, 2024 End: November 13, 2024 Team Status: Inactive Member Role Status Dates Dr. Rick oSw MD Primary Care Provider Active Start: December 15, 2024 End: December 15, 2024 Юлия Bermudez SEWING MACHINE TESTER, SEWING MACHINE TESTER-C Attending Provider Active Start: December 15, 2024 End: December 15, 2024 Юлия Bermudez SEWING MACHINE TESTER, SEWING MACHINE TESTER-C Referring Provider Active Start: December 15, 2024 End: December 15, 2024 Team Status: Active Member Role/Relationship Status Dates Dr. Rick Sow MD Primary Care Provider Active Team Status: Inactive Member Role/Relationship Status Dates Dr. Rick Sow MD Primary Care Provider Active Start: September 23, 2024 End: September 23, 2024 Dr. Rick Sow MD Referring Provider Active Start: September 23, 2024 End: September 23, 2024 Юлия Bermudez SEWING MACHINE TESTER, SEWING MACHINE TESTER-C Attending Provider Active Start: September 23, 2024 End: September 23, 2024 Team Status: Inactive Member Role/Relationship Status Dates Dr. Rick Sow MD Primary Care Provider Active Start: September 24, 2024 End: September 24, 2024 Dr. Rick Sow MD Referring Provider Active Start: September 24, 2024 End: September 24, 2024 Dr. Melinda Cifuentes MD Attending Provider Active Start: September 24, 2024 End: September 24, 2024 Team Status: Inactive Member Role/Relationship Status Dates Dr. Rick Sow MD Primary Care Provider Active Start: October 16, 2024 End: October 16, 2024 Dr. Melinda Cifuentes MD Attending Provider Active Start: October 16, 2024 End: October 16, 2024 Dr. Melinda Cifuentes MD Referring Provider Active Start: October 16, 2024 End: October 16, 2024 Team Status: Active Member Role/Relationship Status Dates Dr. Rick Sow MD Primary Care Provider Active Start: October 19, 2024 Dr. Melinda Cifuentes MD Attending Provider Active Start: October 19, 2024 Dr. Melinda Cifuentes MD Referring Provider Active Start: October 19, 2024 Dr. Melinda Cifuentes MD Other Provider Active Star t: October 19, 2024 Team Status: Inactive Member Role/Relationship Status Dates Dr. Rick Sow MD Primary Care Provider Active Start: October 28, 2024 End: October 28, 2024 Юлия Bermudez SEWING MACHINE TESTER, SEWING MACHINE TESTER-C Attending Provider Active Start: October 28, 2024 End: October 28, 2024 Юлия Bermudez SEWING MACHINE TESTER, SEWING MACHINE TESTER-C Referring Provider Active Start: October 28, 2024 End: October 28, 2024 Team Status: Active Member Role/Relationship Status Dates Dr. Rick Sow MD Primary Care Provider Active Start: October 29, 2024 Юлия Bermudez SEWING MACHINE TESTER, SEWING MACHINE TESTER-C Referring Provider Active Start: October 29, 2024 Юлия Bermudez SEWING MACHINE TESTER, SEWING MACHINE TESTER-C Other Provider Active Start: October 29, 2024 Dr. Edd Perez DO Attending Provider Active S tart: October 29, 2024 Team Status: Inactive Member Role/Relationship Status Dates Dr. Rick Sow MD Primary Care Provider Active Start: October 30, 2024 End: October 30, 2024 Юлия Bermudez SEWING MACHINE TESTER, SEWING MACHINE TESTER-C Attending Provider Active Start: October 30, 2024 End: October 30, 2024 Юлия Bermudez SEWING MACHINE TESTER, SEWING MACHINE TESTER-C Referring Provider Active Start: October 30, 2024 End: October 30, 2024 Team Status: Inactive Member Role/Relationship Status Dates Dr. Rick Sow MD Primary Care Provider Active Start: November 02, 2024 End: November 02, 2024 Юлия Bermudez SEWING MACHINE TESTER, SEWING MACHINE TESTER-C Attending Provider Active Start: November 02, 2024 End: November 02, 2024 Юлия Bermudez SEWING MACHINE TESTER, SEWING MACHINE TESTER-C Referring Provider Active Start: November 02, 2024 End: November 02, 2024 Team Status: Inactive Member Role/Relationship Status Dates Dr. Rick Sow MD Primary Care Provider Active Start: November 13, 2024 End: November 13, 2024 Dr. Rick Sow MD Referring Provider Active Start: November 13, 2024 End: November 13, 2024 Юлия Bermudez SEWING MACHINE TESTER, SEWING MACHINE TESTER-C Attending Provider Active Start: November 13, 2024 End: November 13, 2024 Team Status: Inactive Member Role/Relationship Status Dates Dr. Rick Sow MD Primary Care Provider Active Start: December 15, 2024 End: December 15, 2024 Юлия Bermudez SEWING MACHINE TESTER, SEWING MACHINE TESTER-C Attending Provider Active Start: December 15, 2024 End: December 15, 2024 Юлия Bermudez SEWING MACHINE TESTER, SEWING MACHINE TESTER-C Referring Provider Active Start: December 15, 2024 End: December 15, 2024 Team Status: Inactive Member Role/Relationship Status Dates Dr. Rick Sow MD Primary Care Provider Active Start: January 14, 2025 End: January 14, 2025 Dr. 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 Rick Sow MD Primary Care Provider Active Start: October 16, 2024 End: October 16, 2024 Dr. Melinda Cifuentes MD Attending Provider Active Start: October 16, 2024 End: October 16, 2024 Dr. Melinda Cifuentes MD Referring Provider Active Start: October 16, 2024 End: October 16, 2024 Team Status: Active Member Role/Relationship Status Dates Dr. Rick Sow MD Primary Care Provider Active Start: October 19, 2024 Dr. Melinda Cifuentes MD Attending Provider Active Start: October 19, 2024 Dr. Melinda Cifuentes MD Referring Provider Active Start: October 19, 2024 Dr. Melinda Cifuentes MD Other Provider Active Star t: October 19, 2024 Team Status: Inactive Member Role/Relationship Status Dates Dr. Rick Sow MD Primary Care Provider Active Start: October 28, 2024 End: October 28, 2024 Юлия Bermudez SEWING MACHINE TESTER, SEWING MACHINE TESTER-C Attending Provider Active Start: October 28, 2024 End: October 28, 2024 Юлия Bermudez SEWING MACHINE TESTER, SEWING MACHINE TESTER-C Referring Provider Active Start: October 28, 2024 End: October 28, 2024 Team Status: Active Member Role/Relationship Status Dates Dr. Rick Sow MD Primary Care Provider Active Start: October 29, 2024 Юлия Bermudez SEWING MACHINE TESTER, SEWING MACHINE TESTER-C Referring Provider Active Start: October 29, 2024 Юлия Bermudez SEWING MACHINE TESTER, SEWING MACHINE TESTER-C Other Provider Active Start: October 29, 2024 Dr. Edd Perez DO Attending Provider Active S tart: October 29, 2024 Team Status: Inactive Member Role/Relationship Status Dates Dr. Rick Sow MD Primary Care Provider Active Start: October 30, 2024 End: October 30, 2024 Юлия Bermudez SEWING MACHINE TESTER, SEWING MACHINE TESTER-C Attending Provider Active Start: October 30, 2024 End: October 30, 2024 Юлия Bermudez SEWING MACHINE TESTER, SEWING MACHINE TESTER-C Referring Provider Active Start: October 30, 2024 End: October 30, 2024 Team Status: Inactive Member Role/Relationship Status Dates Dr. Rick Sow MD Primary Care Provider Active Start: November 02, 2024 End: November 02, 2024 Юлия Bermudez SEWING MACHINE TESTER, SEWING MACHINE TESTER-C Attending Provider Active Start: November 02, 2024 End: November 02, 2024 Юлия Bermudez SEWING MACHINE TESTER, SEWING MACHINE TESTER-C Referring Provider Active Start: November 02, 2024 End: November 02, 2024 Team Status: Inactive Member Role/Relationship Status Dates Dr. Rick Sow MD Primary Care Provider Active Start: November 13, 2024 End: November 13, 2024 Dr. Rick Sow MD Referring Provider Active Start: November 13, 2024 End: November 13, 2024 Юлия Bermudez SEWING MACHINE TESTER, SEWING MACHINE TESTER-C Attending Provider Active Start: November 13, 2024 End: November 13, 2024 Team Status: Inactive Member Role/Relationship Status Dates Dr. Rick Sow MD Primary Care Provider Active Start: December 15, 2024 End: December 15, 2024 Юлия Bermudez SEWING MACHINE TESTER, SEWING MACHINE TESTER-C Attending Provider Active Start: December 15, 2024 End: December 15, 2024 Юлия Bermudez SEWING MACHINE TESTER, SEWING MACHINE TESTER-C Referring Provider Active Start: December 15, 2024 End: December 15, 2024 Team Status: Inactive Member Role/Relationship Status Dates Dr. Rick Sow MD Primary Care Provider Active Start: January 14, 2025 End: January 14, 2025 Dr. Rick Sow MD Referring Provider Active Start: January 14, 2025 End: January 14, 2025 Raquel Penny SEWING MACHINE TESTER, SEWING MACHINE TESTER-C Attending Provider Active Start: January 14, 2025 End: January 14, 2025 Team Status: Inactive Member Role/Relationship Status Dates Dr. Rick Sow MD Primary Care Provider Active Start: January 25, 2025 End: January 25, 2025 Raquel Penny SEWING MACHINE TESTER, SEWING MACHINE TESTER-C Attending Provider Active Start: January 25, 2025 End: January 25, 2025 Raquel Penny SEWING MACHINE TESTER, SEWING MACHINE TESTER-C Referring Provider Active Start: January 25, 2025 End: January 25, 2025 Team Status: Inactive Member Role/Relationship Status Dates Dr. Rick Sow MD Primary Care Provider Active Start: January 29, 2025 End: January 29, 2025 Raquel Penny SEWING MACHINE TESTER, SEWING MACHINE TESTER-C Attending Provider Active Start: January 29, 2025 End: January 29, 2025 Raquel Penny SEWING MACHINE TESTER, SEWING MACHINE TESTER-C Referring Provider Active Start: January 29, 2025 End: January 29, 2025 Team Status: Inactive Member Role/Relationship Status Dates Dr. Rick Sow MD Primary Care Provider Active Start: October 28, 2024 End: October 28, 2024 Юлия Bermudez SEWING MACHINE TESTER, SEWING MACHINE TESTER-C Attending Provider Active Start: October 28, 2024 End: October 28, 2024 Юлия Bermudez SEWING MACHINE TESTER, SEWING MACHINE TESTER-C Referring Provider Active Start: October 28, 2024 End: October 28, 2024 Team Status: Active Member Role/Relationship Status Dates Dr. Rick Sow MD Primary Care Provider Active Start: October 29, 2024 Юлия Bermudez SEWING MACHINE TESTER, SEWING MACHINE TESTER-C Referring Provider Active Start: October 29, 2024 Юлия Bermudez SEWING MACHINE TESTER, SEWING MACHINE TESTER-C Other Provider Active Start: October 29, 2024 Dr. Edd Perez DO Attending Provider Active S tart: October 29, 2024 Team Status: Inactive Member Role/Relationship Status Dates Dr. Rick Sow MD Primary Care Provider Active Start: October 30, 2024 End: October 30, 2024 Юлия Bermudez SEWING MACHINE TESTER, SEWING MACHINE TESTER-C Attending Provider Active Start: October 30, 2024 End: October 30, 2024 Юлия Bermudez SEWING MACHINE TESTER, SEWING MACHINE TESTER-C Referring Provider Active Start: October 30, 2024 End: October 30, 2024 Team Status: Inactive Member Role/Relationship Status Dates Dr. Rick Sow MD Primary Care Provider Active Start: November 02, 2024 End: November 02, 2024 Юлия Bermudez SEWING MACHINE TESTER, SEWING MACHINE TESTER-C Attending Provider Active Start: November 02, 2024 End: November 02, 2024 Юлия Bermudez SEWING MACHINE TESTER, SEWING MACHINE TESTER-C Referring Provider Active Start: November 02, 2024 End: November 02, 2024 Team Status: Inactive Member Role/Relationship Status Dates Dr. Rick Sow MD Primary Care Provider Active Start: November 13, 2024 End: November 13, 2024 Dr. Rick Sow MD Referring Provider Active Start: November 13, 2024 End: November 13, 2024 Юлия Bermudez SEWING MACHINE TESTER, [employer] Attending Provider Active Start: November 13, 2024 End: November 13, 2024 Team Status: Inactive Member Role/Relationship Status Dates Dr. Rick Sow MD Primary Care Provider Active Start: December 15, 2024 End: December 15, 2024 Юлия Bermudez SEWING MACHINE TESTER, SEWING MACHINE TESTER-C Attending Provider Active Start: December 15, 2024 End: December 15, 2024 Юлия Bermudez SEWING MACHINE TESTER, SEWING MACHINE TESTER-C Referring Provider Active Start: December 15, 2024 End: December 15, 2024 Team Status: Inactive Member Role/Relationship Status Dates Dr. Rick Sow MD Primary Care Provider Active Start: January 14, 2025 End: January 14, 2025 Dr. Rick Sow MD Referring Provider Active Start: January 14, 2025 End: January 14, 2025 Raquel Penny SEWING MACHINE TESTER, SEWING MACHINE TESTER-C Attending Provider Active Start: January 14, 2025 End: January 14, 2025 Team Status: Inactive Member Role/Relationship Status Dates Dr. Rick Sow MD Primary Care Provider Active Start: January 25, 2025 End: January 25, 2025 Rauqel Penny SEWING MACHINE TESTER, SEWING MACHINE TESTER-C Attending Provider Active Start: January 25, 2025 End: January 25, 2025 Raquel Penny SEWING MACHINE TESTER, SEWING MACHINE TESTER-C Referring Provider Active Start: January 25, 2025 End: January 25, 2025 Team Status: Inactive Member Role/Relationship Status Dates Dr. Rick Sow MD Primary Care Provider Active Start: January 29, 2025 End: January 29, 2025 Raquel Penny SEWING MACHINE TESTER, SEWING MACHINE TESTER-C Attending Provider Active Start: January 29, 2025 End: January 29, 2025 Raquel Penny SEWING MACHINE TESTER, SEWING MACHINE TESTER-C Referring Provider Active Start: January 29, 2025 End: January 29, 2025 Team Status: Inactive Member Role/Relationship Status Dates Dr. Rick oSw MD Primary Care Provider Active Start: February 17, 2025 End: February 17, 2025 Dr. Rick Sow MD Referring Provider Active Start: February 17, 2025 End: February 17, 2025 Юлия Bermudez SEWING MACHINE TESTER, SEWING MACHINE TESTER-C Attending Provider Active Start: February 17, 2025 End: February 17, 2025 Team Status: Inactive Member Role/Relationship Status Dates Dr. Rick Sow MD Primary Care Provider Active Start: November 13, 2024 End: November 13, 2024 Dr. Rick Sow MD Referring Provider Active Start: November 13, 2024 End: November 13, 2024 Юлия Bermudez SEWING MACHINE TESTER, SEWING MACHINE TESTER-C Attending Provider Active Start: November 13, 2024 End: November 13, 2024 Team Status: Inactive Member Role/Relationship Status Dates Dr. Rick Sow MD Primary Care Provider Active Start: December 15, 2024 End: December 15, 2024 Юлия Bermudez SEWING MACHINE TESTER, SEWING MACHINE TESTER-C Attending Provider Active Start: December 15, 2024 End: December 15, 2024 Юлия Bermudez SEWING MACHINE TESTER, SEWING MACHINE TESTER-C Referring Provider Active Start: December 15, 2024 End: December 15, 2024 Team Status: Inactive Member Role/Relationship Status Dates Dr. Rick Sow MD Primary Care Provider Active Start: January 14, 2025 End: January 14, 2025 Dr. Rick Sow MD Referring Provider Active Start: January 14, 2025 End: January 14, 2025 Raquel Penny SEWING MACHINE TESTER, SEWING MACHINE TESTER-C Attending Provider Active Start: January 14, 2025 End: January 14, 2025 Team Status: Inactive Member Role/Relationship Status Dates Dr. Rick Sow MD Primary Care Provider Active Start: January 25, 2025 End: January 25, 2025 Raquel Penny SEWING MACHINE TESTER, SEWING MACHINE TESTER-C Attending Provider Active Start: January 25, 2025 End: January 25, 2025 Raquel Penny SEWING MACHINE TESTER, SEWING MACHINE TESTER-C Referring Provider Active Start: January 25, 2025 End: January 25, 2025 Team Status: Inactive Member Role/Relationship Status Dates Dr. Rick Sow MD Primary Care Provider Active Start: January 29, 2025 End: January 29, 2025 Raquel Penny SEWING MACHINE TESTER, SEWING MACHINE TESTER-C Attending Provider Active Start: January 29, 2025 End: January 29, 2025 Raquel Penny SEWING MACHINE TESTER, SEWING MACHINE TESTER-C Referring Provider Active Start: January 29, 2025 End: January 29, 2025 Team Status: Active Member Role/Relationship Status Dates Dr. Rick Sow MD Primary Care Provider Active Start: January 29, 2025 Dr. Melinda Cifuentes MD Attending Provider Active Start: January 29, 2025 Raquel Penny NP, SEWING MACHINE TESTER-C Referring Provider Active Start: January 29, 2025 Team Status: Inactive Member Role/Relationship Status Dates Dr. Rick Sow MD Primary Care Provider Active Start: February 17, 2025 End: February 17, 2025 Dr. Rick Sow MD Referring Provider Active Start: February 17, 2025 End: February 17, 2025 Юлия Bermudez SEWING MACHINE TESTER, SEWING MACHINE TESTER-C Attending Provider Active Start: February 17, 2025 End: February 17, 2025 Team Status: Inactive Member Role/Relationship Status Dates Dr. Rick Sow MD Primary Care Provider Active Start: March 03, 2025 End: March 03, 2025 Юлия Bermudez SEWING MACHINE TESTER, SEWING MACHINE TESTER-C Attending Provider Active Start: March 03, 2025 End: March 03, 2025 Юлия Bermudez SEWING MACHINE TESTER, SEWING MACHINE TESTER-C Referring Provider Active Start: March 03, 2025 End: March 03, 2025 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 Specialty Start Date End Date Rick Sow MD [address] [place] [address] PCP - General Family Medicine 10/19/24 Bethanie Ramos APRN.CNP [address] [place], [place] [id number] [facility] 12/14/24 Farzana Kelly PA-C [address] [place] [id number] [facility] 12/14/24 Team Status: Inactive Member Role/Relationship Status Dates Dr. Rick Sow MD Primary Care Provider Active Start: December 15, 2024 End: December 15, 2024 Юлия Bermudez SEWING MACHINE TESTER, SEWING MACHINE TESTER-C Attending Provider Active Start: December 15, 2024 End: December 15, 2024 Юлия Bermudez SEWING MACHINE TESTER, SEWING MACHINE TESTER-C Referring Provider Active Start: December 15, 2024 End: December 15, 2024 Team Status: Inactive Member Role/Relationship Status Dates Dr. Rick Sow MD Primary Care Provider Active Start: January 14, 2025 End: January 14, 2025 Dr. Rick Sow MD Referring Provider Active Start: January 14, 2025 End: January 14, 2025 Raquel Penny SEWING MACHINE TESTER, SEWING MACHINE TESTER-C Attending Provider Active Start: January 14, 2025 End: January 14, 2025 Team Status: Inactive Member Role/Relationship Status Dates Dr. Rick Sow MD Primary Care Provider Active Start: January 25, 2025 End: January 25, 2025 Raquel Penny SEWING MACHINE TESTER, SEWING MACHINE TESTER-C Attending Provider Active Start: January 25, 2025 End: January 25, 2025 Raquel Penny SEWING MACHINE TESTER, SEWING MACHINE TESTER-C Referring Provider Active Start: January 25, 2025 End: January 25, 2025 Team Status: Inactive Member Role/Relationship Status Dates Dr. Rick Sow MD Primary Care Provider Active Start: January 29, 2025 End: January 29, 2025 Raquel Penny SEWING MACHINE TESTER, SEWING MACHINE TESTER-C Attending Provider Active Start: January 29, 2025 End: January 29, 2025 Raquel Penny SEWING MACHINE TESTER, SEWING MACHINE TESTER-C Referring Provider Active Start: January 29, 2025 End: January 29, 2025 Team Status: Active Member Role/Relationship Status Dates Dr. Rick Sow MD Primary Care Provider Active Start: January 29, 2025 Dr. Melinda Cifuentes MD Attending Provider Active Start: January 29, 2025 Raquel Penny SEWING MACHINE TESTER, SEWING MACHINE TESTER-C Referring Provider Active Start: January 29, 2025 Team Status: Inactive Member Role/Relationship Status Dates Dr. Rick Sow MD Primary Care Provider Active Start: February 17, 2025 End: February 17, 2025 Dr. Rick Sow MD Referring Provider Active Start: February 17, 2025 End: February 17, 2025 Юлия Bermudez SEWING MACHINE TESTER, SEWING MACHINE TESTER-C Attending Provider Active Start: February 17, 2025 End: February 17, 2025 Team Status: Inactive Member Role/Relationship Status Dates Dr. Rick Sow MD Primary Care Provider Active Start: March 03, 2025 End: March 03, 2025 Юлия Bermudez SEWING MACHINE TESTER, SEWING MACHINE TESTER-C Attending Provider Active Start: March 03, 2025 End: March 03, 2025 Юлия Bermudez NP, SEWING MACHINE TESTER-C Referring Provider Active Start: March 03, 2025 End: March 03, 2025 Team Status: Inactive Member Role/Relationship Status Dates Dr. Rick Sow MD Primary Care Provider Active Start: March 26, 2025 End: March 26, 2025 Dr. Rick Sow MD Referring Provider Active Start: March 26, 2025 End: March 26, 2025 Юлия Bermudez NP, SEWING MACHINE TESTER-C Attending Provider Active Start: March 26, 2025 End: March 26, 2025 (unrecognized sect ion and content) No Status Records FoundNo Status Records Found INFORMATION SOURCE (unrecogn ized section and content) DATE CREATED AUTHOR 04/02/2025 [facility] DATE CREATED AUTHOR AUTHOR'S LESLEE SHELL 04/03/2025 [facility] FOR RECORDS PERTAINING TO PATIENTS WHO ARE [...] BE BASED ON THE PRIMARY CLINICAL RECORDS. [employer] provides no warranty or guarantee of the accuracy or completeness of information in this document.
== END | disposition home or self-care (01) ==
LOC: SL 20:02
PROVIDERS: PCP Family Medicine; Referring Provider Nurse Practitioner Acute Care; Visit Provider Nurse Practitioner Acute Care
DX: G47.33 Obstructive sleep apnea (adult) (pediatric) (principal)
CPT/HCPCS: 95810

== ENCOUNTER → 2025-05-04 | Outpatient (CLI) | payer MEDICARE, OTHER, SELFPAY ==
--- OUTSIDE RECORDS SUMMARY | 2025-05-04 20:10 | XMS RPT_ITS | CCD ---
Author Organization [facility] Team Providers Care Nuclear Plant Technical Advisor Name Role Phone Rick Sow MD Primary Care Provider Dr. Kishore De Anda Attending Provider Dr. Kishore De Anda Other Provider Dr. Rick Sow Primary Care Provider Dr. Rick Sow Referring Provider Rick Sow MD Primary Care Provider Rick Sow MD Primary Care Provider Richard DOWNING.ROTOR WINDER, Bethanie Unavailable Robin PIERSON, Farzana Unavailable Geovanni RN, Alesia Apodaca Unavailable Geovanni RN, Alesia Apodaca Unavailable Josee RN, Tarik Unavailable Dr. Rick Sow MD Primary Care Provider Dr. Vera Orta DO Emergency Provider Dr. Tanner Bah DO Admit Provider Unavail able Dr. Tanner Bah DO Other Provider Unavail able Adalberto ROJAS, Dr. Novak Other Provider [phone] Asa ROJAS, Dr. Jane Other Provider Dr. David Wallis MD Other Provider Dr. Yuri Chester MD Other Provider Dr. Edd Perez DO Other Provider Connie ROJAS, Dr. Tanner López Other Provider Jannet ROJAS, Dr. Gupta Other Provider [phone] Savanna ROJAS, Dr. Patel Other Provider Meche ROJAS, Dr. Medina Other Provider Rafa ROJAS, Dr. Franco Other Provider [phone] Lucas ROJAS, Dr. Mckeon Other Provider [phone] Behzad ROJAS, Dr. Saldivar Other Provider Marcelle ROJAS, Dr. Meraz Other Provider Kell ROJAS, Dr. Johnson Other [facility] guille Conn MD, Dr. Mena Other Provider [phone] Ken ROJAS, Dr. Hirsch Other Provider Georges ROJAS, Dr. Valderrama Other Provider [phone] Juliane ROJAS, Dr. Meyer Other Provider Shelly LUCAS, Dr. Iqbal Other Provider Pooja ROJAS, Dr. Longo Other Provider [phone] Param ROJAS, Dr. Mcpherson Other Provider [phone] Mary Delicd DO Other Provider Kraig ROJAS, Dr. Thompson Other Provider [phone] Harsh ROJAS, Dr. Andrade Other Provider Juve ROJAS, Dr. Giron Attending Provider Dr. Mack An MD Other Provider Lacey ROJAS, Dr. Kimbrough Attending Provider Dr. Tanner Bah DO Referring Provider Dariel Lua MD, Dr. Bradford Attending Provider Juve ROJAS, Dr. Giron Referring Provider Dr. Edd Perez DO Attending Provider [phone] Juanjose ROJAS, Dr. Cabrera Referring Provider Lara [employer] UTILITY SUPERVISOR-C, Юлия Attending Provider Esau ROJAS, Dr. Lawrence Attending Provider Esau ROJAS, Dr. Lawrence Referring Provider Esau ROJAS, Dr. Lawrence Other Provider Juanjose ROJAS, Rick Primary Care Provider [phone] Lara [employer] UTILITY SUPERVISOR-C, Юлия Referring Provider Lara [employer] UTILITY SUPERVISOR-C, Юляи Other Provider Juve ROJAS, Dr. Giron Other Provider Chris LUCAS, Dr. Puga Attending Provider Juanjose ROJAS, Dr. Cabrera Primary Care Provider Zohaib [employer] UTILITY SUPERVISOR-C, Raquel Attending Provider Richard SUPERVISOR [employer].ROTOR WINDER, Bethanie Unavailable Robin PA-C, Farzana Unavailable Juanjose ROJAS, Dr. Cabrera Primary Care Provider Esau ROJAS, Dr. Lawrence Attending Provider Lara [employer] UTILITY SUPERVISOR-C, Юлия Attending Provider Juanjose ROJAS, Dr. Cabrera Referring Provider Zohaib SIMMS-C, Raquel Referring Provider [phone] Juanjose ROJAS, Dr. Cabrera Primary Care Provider Juanjose ROJAS, Dr. Cabrera Primary Care Provider Lara [employer] UTILITY SUPERVISOR-C, Юлия Attending Provider Lara [employer] UTILITY SUPERVISOR-C, Юлия Referring Provider Esau ROJAS, Dr. Lawrence Attending Provider Juanjose ROJAS, Dr. Cabrera Primary Care Provider Lara [employer] UTILITY SUPERVISOR-C, Юлия Attending Provider Juanjose ROJAS, Dr. Cabrera Referring Provider Juanjose ROJAS, Dr. Cabrera Primary Care Physician Lara [employer] SUPERVISOR-C, Юлия Attending Physician [phone] Zohaib [employer] UTILITY SUPERVISOR-C, Raquel Attending Physician [phone] Esau ROJAS, Dr. Lawrence Attending Physician [phone] Juanjose ROJAS, Dr. Cabrera Primary Care Physician Lara [employer] UTILITY SUPERVISOR-C, Юлия Attending Physician Lara [employer] UTILITY SUPERVISOR-C, Юлия Referring Provider iRck Sow Primary Care Unavailable Zohaib [employer] UTILITY SUPERVISOR, Raquel Attending Unavailable Zohaib [employer] UTILITY SUPERVISOR, Raquel Referring Unavailable Lara [employer] UTILITY SUPERVISOR, Юлия Referring Un[facility]available Lara [employer] UTILITY SUPERVISOR, Юлия Attending Unavailable Mack An Referring Unavailable Tanner Bah Admitting Unavailable Tanner Bah Consulting Unavailable Rick Sow Primary Care Unavailable Edd Perez Attending Unavailable Kishore Glover Consulting Unavailable Buck Bray Consulting Unavailable David Wallis Consulting Unavailable Yuri Chester Consulting Unavailable Edd Perez Consulting Unavailable Tanner Rosales Consulting Unavailable Alonso Pwoer Consulting Unavailable Jorge Corraels Consulting Unavailable Carol Mcgregor Consulting UnavailSalvador Mcginnis [...] Cornell Consulting Unavailable Raymond House Consulting Unavailable Mack An Consulting Unavailable Lara [employer] UTILITY SUPERVISOR, Юлия Referring Unavailable Lara [employer] UTILITY SUPERVISOR, Юлия Attending Unavailable Juanjose Rick Primary Care Unavailable Bermudez [employer] PLANT UTILITY SUPERVISOR, Юлия Referring Unavailable [facility] Unavailable Bermudez [employer] PLANT UTILITY SUPERVISOR, Юлия Attending Unavailable Bermudez [employer] UTILITY SUPERVISOR, Юлия Referring [facility]available [facility] Unavailable Lara [employer] PL[employer] UTILITY SUPERVISOR, Юлия Attending Unavailable Mack An Attending Unavailable Tanner Bah Consulting Unavailable Juanjose Rick Primary Care Unavailable Tanner Bah Admitting Unavailable Kishore Glover [...] Consulting Unavailable Raymond House Consulting Unavailable Lara [employer] UTILITY SUPERVISOR, Юлия Attending Unavailable Lara [employer] UTILITY SUPERVISOR, Юлия Referring Unavailable Juanjose, Rick Primary Care Unavailable Tanner Bah Attending Unavailable Mack An Attending Unavailable Juanjose, Rick Primary Care Unavailable Raquel Penny NP Referring Unavailable Esau, Melinda Attending Unavailable Juanjose, Rick Primary Care Unavailable Sanchez Lua Attending Unavailable Juanjose, Rick Primary Care Unavailable Esau, Melinda Referring Unavailable Esau, Melinda Attending Unavailable Lara [employer] UTILITY SUPERVISOR, Юлия Attending Unavailable Lara [employer] UTILITY SUPERVISOR, Юлия Referring Unavailable Juanjose, Rick Primary Care Unavailable Tanner Bah Referring Unavailable Juanjose, Rick Primary Care Unavailable Luis E Rahman Attending Unavailable Juanjose, Rick Primary Care Unavailable Esau, Melinda Referring Unavailable Esau, Melinda Consulting Unavailable Esau, Melinda Attending Unavailable Lara [employer] UTILITY SUPERVISOR, Юлия Consulting Unavailable Bermudez [employer] UTILITY SUPERVISOR, Юлия Referring Unavailable Juanjose, Rick Primary Care Unavailable Edd Perez Attending Unavailable Juanjose, Rick Primary Care Unavailable Esau, Melinda Attending Unavailable Juanjose, Rick Referring Unavailable Bermudez [employer] UTILITY SUPERVISOR, Юлия Referring Unavailable Juanjose, Rick Primary Care Unavailable Lara [employer] PLANT UTILITY SUPERVISOR, Юлия Attending Unavailable Juanjose, Rick Primary Care Unavailable Juanjose, Rick Referring Unavailable Lara [employer] UTILITY SUPERVISOR, Юлия Attending Unavailable Juanjose, Rick Primary Care Unavailable Raquel Penny NP Attending Unavailable Juanjose, Rick Referring Unavailable Juanjose, Rick Primary Care Unavailable Juanjose, Rick Referring Unavailable Bermudez [employer] UTILITY SUPERVISOR, Юлия Attending Unavailable Juanjose, Rick Primary Care Unavailable Juanjose, Rick Referring Unavailable Lara [employer] UTILITY SUPERVISOR, Юлия Attending Unavailable Juanjose, Rick Primary Care Unavailable Zohaib [employer] PL[employer] UTILITY SUPERVISOR, Raquel Attending Unavailable Juanjose, Rick Referring Unavailable Lara SIMMS, Юлия Attending Unavailable Juanjose, Rick Primary Care Unavailable Juanjose, Rick Referring Unavailable Edd Perez Attending Unavailable Juanjose, Rick Primary Care Unavailable Zohaib [employer] UTILITY SUPERVISOR, Raquel Referring Unavailable Zohaib [employer] PL[employer] UTILITY SUPERVISOR, Raquel Attending Unavailable JUANJOSE, RICK Sanchez Attending Unavailable JUANJOSE, RICK A Primary Care Unavailable JUANJOSE, RICK A Primary Care Unavailable SELF Referring Unavailable JUANJOSE, RICK A Primary Care Unavailable FARZANA KELLY Attending Unavailable JUANJOSE, RICK A Primary Care Unavailable JUANJOSE, RICK A Primary Care Unavailable JUANJOSE, RICK A Primary Care Unavailable FARZANA KELLY Attending Unavailable JUANJOSE, RICK A Primary Care Unavailable FARZANA KELLY Referring Unavailable JUANJOSE, RICK A Referring Unavailable JUANJOSE, RICK A Primary Care Unavailable FARZANA KELLY Attending Unavailable JUANJOSE, RICK A Primary Care Unavailable JUANJOSE, RICK A Primary Care Unavailable FARZANA KELLY Attending Unavailable FARZANA KELLY Referring Unavailable JUANJOSE RICK A Primary Care Unavailable Allergies Allergy Classification Reported Allergen(s) Allergy Type Date of Onset Reaction(s) Facility (20 sources) Lisinopril; Translations: [LISINOPRIL] Drug Allergy 8 Cough [facility] Work Phone: (20 sources) dapagliflozin; Translations: [DAPAGLIFLOZIN] Drug Allergy 3 Other: See Comments [facility] Work Phone: (20 sources) pioglitazone; Translations: [PIOGLITAZONE] Drug Allergy 4 Shortness of Breath [facility] Work Phone: (1 source) dapagliflozin Drug Allergy 5 [facility] (1 source) Lisinopril Drug Allergy 5 [facility] (1 source) pioglitazone Drug Allergy 5 [facility] Medications Current Medications Medication Drug Class(es) Dates Sig (Normalized) Sig (Original) [id number] 200 actuat albuterol 0.09 mg/actuat metered dose inhaler (3 sources) beta2-Adrenergic Agonist Start: 09-12-2025 Albuterol Sulfate (Ventolin Hfa) 90 mcg/actuation HFA aerosol inhaler Active 2 NMA INHALATION Q4H as needed for shortness of breath or wheezing 01 06March 26, 2025 12:00am Complies with drug therapy aspirin 81 mg delayed release oral tablet (20 sources) Platelet Aggregation Inhibitor, Nonsteroidal Anti-inflammatory Drug Start: 11-09-2014 take 1 tablet by mouth once daily Aspirin 81 MG tablet Active 81 mg PO DAILY@0800 November 09, 2014 12:00am Complies with drug therapy Start: 09-15-2013 take 1 tablet by eleuteroi th once daily at mealtime Aspirin 81 mg tab Take 1 tablet by mouth once daily. Take with food. 30 tablet 09/15/2013 Active Comment on above: Take 1 tablet by eleuterio th once daily. Take with food. atorvastatin 20 mg oral tablet (20 sources) HMG-CoA Reductase Inhibitor Start: End: take 1 tablet by mouth at bedtime Atorvastatin (Lipitor) 20 mg tablet Active 20 mg PO AT BEDTIME April 15, 2025 12:00am Complies with drug therapy Start: 12-05-2022 End: 04-29-2023 take 1 tablet [...] 1 tablet by eleuterio th once daily. For cholesterol. cefadroxil 500 mg oral capsule (1 source) Cephalosporin Antibacterial Start: End: take 1 capsule by mouth twice daily cefADROxil (DURICEF) 500 mg capsule Take 1 capsule by mouth twice daily for 7 days. 14 capsule 0 11/29/2021 12/06/2021 Active Comment on above: Take 1 capsule by [facility] twice daily for 7 days. cetirizine hydrochloride 10 mg oral tablet (4 sources) Histamine-1 Receptor Antagonist Start: take 1 tablet by mouth once daily cetirizine (ZYRTEC) 10 mg tablet Take 1 tablet by mouth once daily. 30 tablet 11/05/2024 Active cyclobenzaprine hydrochloride 10 mg oral tablet (20 sources) Muscle Relaxant Start: 024 take 1 tablet by mouth three times daily as needed Cyclobenzaprine 10 mg tablet Active 10 mg PO THREE TIMES A DAY as needed September 16, 2024 1:00am Complies with drug therapy furosemide 40 mg oral tablet (20 sources) Loop Diuretic Start: End: take 1 tablet by mouth in the evening, then take 5 tablets by mouth every week Furosemide 40 mg tablet Active 40 mg PO .PRN 30 0 January 14, 2025 10:24am Take extra 40 mg dose at 5 PM for increased leg swelling or weight gain 5 pounds in 1 week. Complies with drug therapy glimepiride 4 mg oral tablet (20 sources) Sulfonylurea Start: 023 End: take 1 tablet by mouth twice daily Glimepiride 4 mg tablet Active 4 mg PO TWICE A DAY July 05, 2023 1:00am Complies with drug therapy Start: 03-28-2022 End: 09-25-2022 glimepiride (AMARYL) 4 [...] in PM Take 1 tablet by eleuterio twice daily with meals. Take 1 tab [...] take 2 tablets by mouth once daily Losartan 50 MG tablet Active 100 mg PO DAILY April 23, 2013 12:00am Complies with drug therapy Start: 04-23-2013 take 100 mg by mouth once yudi y Losartan Active 100 MG PO DAILY April 23, 2013 6:10am Comment on above: Take 2 tablets by mo [facility] once daily. metFORMIN hydrochloride 1000 mg oral tablet (20 sources) Biguanide Start: 02-17-2025 take 1 tablet by mouth twice daily Metformin 1,000 mg tablet Active 1000 mg PO TWICE A DAY February 17, 2025 12:00am Complies with drug therapy Start: 12-05-2022 End: 10-05-2024 take 1 tablet [...] succinate 25 mg extended release oral tablet (6 sources) beta-Adrenergic Sarah Start: 04-15-2025 take 2 tablets by mouth once daily Metoprolol Succinate 25 mg tablet extended release 24 hr Active 12.5 mg PO daily April 15, 2025 10:09am Complies with drug therapy Start: 02-16-2025 End: 04-15-2025 take 1 tablet by mouth once daily Metoprolol Succinate 25 mg tablet extended release 24 hr Discontinued 25 mg PO daily February 16, 2025 12:00am April 15, 2025 10:10am metroNIDAZOLE 0.01 mg/mg topical gel (20 sources) Nitroimidazole Antimicrobial Start: 02-17-2025 Metronidazole 1 % ge l Active 1 NMA TOPICAL daily February 17, 2025 12:00am Complies with drug therapy Start: 05-30-2020 End: 03-17-2024 metroNIDAZOLE (METROGEL) 1 [...] Multivitamin With Folic Acid 1 TABLET tablet (12 sources) Start: 11-09-2014 take 1 tablet by mouth once daily Multivitamin With Folic Acid 1 TABLET tablet Active 1 {tbl} PO DAILY November 09, 2014 12:00am Complies with drug therapy Start: 11-09-2014 take 1 tablet by eleutreio th once daily Start: 11-09-2014 take 1 tablet by eleuterio th once daily Multivitamin With Folic Acid 1 TABLET tablet Active 1 {tbl} PO DAILY November 09, 2014 12:00am [place]-3 Fatty Acids (2 sources) Start: 04-23-2013 take 300 mg by mouth once daily [place]-3 Fatty Acids Active 300 MG PO DAILY April 23, 2013 6:10am Start: 04-23-2013 take 300 mg by mouth once yudi y [place]-3 Fatty Acids Active 300 MG PO DAILY April 22, 2013 11:00pm [place]-3 Fatty Acids 300 MG capsule (12 sources) Start: 04-23-2013 take 1 capsule by mouth once daily [place]-3 Fatty Acids 300 MG capsule Active 300 mg PO DAILY April 23, 2013 12:00am Complies with drug therapy Start: 04-23-2013 take 1 capsule by mouth once d aily Start: 04-23-2013 take 1 capsule by mouth once d aily [place]-3 Fatty Acids 300 MG capsule Active 300 mg PO DAILY April 23, 2013 12:00am [place]-3 Fatty Acids-Vitamin E (FISH OIL) 1,000 mg cap (20 sources) Start: 04-10-2013 take 1 capsule by mouth once daily [place]-3 Fatty Acids-Vitamin E (FISH OIL) 1,000 mg cap Indications: Personal history of colonic polyps Take 1 capsule by mouth once daily. 0 04/10/2013 Active Comment on above: Take 1 capsule by mo uth once daily. spironolactone 25 mg oral tablet (11 sources) Aldosterone Antagonist Start: 01-14-2025 take 1 tablet by mouth once daily Spironolactone 25 mg tablet Active 25 mg PO daily 30 January 14, 2025 12:00am Complies with drug therapy Completed/Discontinued Medications Medication Drug Class(es) Dates Sig (Normalized) Sig (Original) acetaminophen 325 mg / HYDROcodone bitartrate 5 mg oral tablet (14 sources) Opioid Agonist Start: 07-02-2019 End: 07-04-2019 [...] Start: 08-27-2024 take 0.5 tablet by m out once daily amLODIPine (NORVASC) 10 mg tablet Indications: Essential hypertension, benign Take 0.5 tablets by mouth once daily. 90 tablet 1 08/27/2024 Active Start: 08-19-2024 End: 09-16-2024 take 5 mg by mouth once daily Amlodipine 10 mg tablet Active 5 mg PO DAILY September 16, 2024 5:26pm Complies with drug therapy Start: 04-23-2013 End: 08-27-2024 take 1 tablet [...] 2-5) PO benzonatate 100 mg oral capsule (14 sources) Non-narcotic Antitussive Start: 08-11-2018 End: 06-08-2019 take 2 capsules by mouth three times daily as needed for cough Benzonatate 100 mg capsule Discontinued 200 mg PO THREE TIMES A DAY as needed for cough 30 August 11, 2018 1:00am June 08, 2019 [...] guaiFENesin 1200 mg extended release oral tablet (14 sources) Uncompetitive U-krhysz-S-aspartat e Receptor Antagonist, Sigma-1 Agonist Start: 08-19-2024 [...] Take 1 tablet by eleuterio once daily. Take 1 tablet once daily [...] 1 tablet by eleuterio th once daily. ipratropium bromide 0.2 mg/ml inhalation solution (14 sources) Anticholinergic Start: 08-11-2018 End: 08-16-2018 take 1 mL by inhalation every six hours Ipratropium Tyronza 0.02 % solution Discontinued 2.5 mL INHALATION EVERY 6 HOURS 62.5 5 0 August 11, 2018 1:00am August 15, 2018 1:00am August 16, 2018 1:09am Acute bronchitis, unspecified oseltamivir 75 mg oral capsule (12 sources) Neuraminidase Inhibitor Start: 08-19-2024 End: 09-16-2024 [...] 1 tablet by eleuterio th once daily. potassium chloride 20 meq extended release oral tablet (20 sources) Start: 08-19-2024 End: 01-14-2025 take 1 tablet by mouth once daily Potassium Chloride 20 mEq tablet extended release Discontinued 20 meq PO DAILY 30 30 0 August 19, 2024 1:00am January 14, 2025 10:24am predniSONE 20 mg oral tablet (14 sources) Start: 08-19-2024 End: 08-27-2024 take 1 tablet by mouth once daily predniSONE (DELTASONE) 20 mg tablet Take 20 mg by mouth once daily. 08/19/2024 08/27/2024 Discontinued Start: 08-19-2024 End: 09-16-2024 take 2 tablets by mouth once daily Prednisone 20 mg tablet Discontinued 40 mg PO DAILY 10 5 August 19, 2024 1:00am September 16, 2024 [...] Phosphodiesterase 5 Inhibitor Start: 03-28-20 End: 04-07-20 24 take 1 tablet by mouth once daily [...] obstruction or gangrene] 07-02-2019 Episodic Acute bronchitis (14 sources) Acute bronchitis; Translations: [Acute bronchitis, unspecified] 08-11-2018 Episodic Administrative/social admission (20 sources) Patient encounter status; Translations: [Dietary counseling and surveillance] Onset: 2 Episodic Cardiac dysrhythmias (18 sources) Multiple premature ventricular complexes; Translations: [Ventricular premature depolarization] Onset: 5 01-14-2025 Chronic Cardiac dysrhythmias (20 sources) Palpitations; Translations: [Palpitations] Onset: 2 Episodic Chronic obstructive pulmonary disease and bronchiectasis (18 sources) Acute exacerbation of chronic obstructive airways disease; Translations: [Chronic obstructive pulmonary disease with (acute) exacerbation] Onset: 5 08-27-2024 Chronic Congestive heart failure; nonhypertensive (4 sources) Congestive heart failure; nonhypertensive Diabetes mellitus with complications (20 sources) Proteinuria due to type 2 diabetes mellitus; Translations: [Type 2 diabetes mellitus with other diabetic kidney complication] Onset: 1 Chronic Diabetes mellitus without complication (20 sources) Type 2 diabetes mellitus without complication; Translations: [Type 2 diabetes mellitus without complications] Onset: 6 Chronic Disorders of lipid metabolism (20 sources) Hyperlipidemia; Translations: [Hyperlipidemia, unspecified] Onset: 0 Chronic Esophageal disorders (20 sources) Gastroesophageal reflux disease; Translations: [Gastro-esophageal reflux disease without esophagitis] Onset: 5 Resolved: 5 09-21-2014 Chronic Essential hypertension (20 sources) Benign essential hypertension; Translations: [Essential (primary) hypertension] Onset: 8 Chronic Hyperplasia of prostate (20 sources) Urinary frequency due to benign prostatic hypertrophy; Translations: [Benign prostatic hyperplasia with lower urinary tract symptoms] Onset: 2 03-28-2022 Chronic Immunizations and screening for infectious disease (3 sources) Suspected disease caused by 2019-nCoV; Translations: [Suspected COVID-19 virus infection] Onset: 5 Episodic Neoplasms of unspecified nature or uncertain behavior (1 source) Neoplasm of uncertain behavior of skin of nose; Translations: [Neoplasm of uncertain behavior of skin] 04-02-2023 Episodic Occlusion or stenosis of precerebral arteries (12 sources) Bilateral stenosis of carotid arteries; Translations: [Occlusion and stenosis of bilateral carotid arteries] Onset: 5 10-05-2024 Chronic Osteoarthritis (20 sources) Degenerative joint disease involving multiple joints; Translations: [Polyosteoarthritis, unspecified] Onset: 5 03-11-2021 Chronic Other aftercare (1 source) Post-discharge follow-up; Translations: [Encounter for follow-up examination after completed treatment for conditions other than malignant neoplasm] 08-27-2024 Episodic Other and unspecified benign neoplasm (20 sources) History of polyp of colon; Translations: [Personal history of colonic polyps] Onset: 8 03-11-2021 Episodic Other and unspecified benign neoplasm [...] Translations: [Other muscle spasm] 06-25-2024 Episodic Other diseases of veins and lymphatics (20 sources) Peripheral venous insufficiency; Translations: [Venous insufficiency (chronic) (peripheral)] Onset: Episodic Other gastrointestinal disorders (14 sources) Groin mass; Translations: [Other intra-abdominal and pelvic swelling, mass and lump] 06-08-2019 Episodic Other gastrointestinal disorders (12 sources) Heartburn; Translations: [Heartburn] 09-16-2024 Episodic Comment on above: SELDOM R/T FOODS Other inflammatory condition of skin (20 sources) Rosacea; Translations: [Rosacea, unspecified] Onset: 1 03-11-2021 Chronic Other lower respiratory disease (17 sources) Dyspnea on exertion; Translations: [Other forms of dyspnea] 09-24-2024 Episodic Other lower respiratory disease (17 sources) Dyspnea; Translations: [Shortness of breath] 09-23-2024 Episodic Other lower respiratory disease (16 sources) Respiratory insufficiency; Translations: [Other abnormalities of breathing] 08-15-2024 Episodic Other lower respiratory disease (20 sources) Hypoxia; Translations: [Hypoxemia] 09-24-2024 Episodic Other lower respiratory disease (20 sources) Restrictive lung disease; Translations: [Other disorders of lung] 11-13-2024 Episodic Other male genital disorders (20 sources) Secondary erectile dysfunction; Translations: [Male erectile dysfunction, unspecified] Onset: 2 03-28-2022 Chronic Other male genital disorders (12 sources) Male erectile dysfunction, unspecified; Translations: [Erectile dysfunction] 09-16-2024 Chronic Other nervous system disorders (20 sources) Carpal tunnel syndrome of left wrist; Translations: [Carpal tunnel syndrome, left upper limb] Onset: 0 Resolved: 5 03-11-2021 Chronic Other nutritional; endocrine; and metabolic disorders (20 sources) Body mass index 40+ - severely obese; Translations: [Morbid (severe) obesity due to excess calories] Onset: 0 Chronic Other nutritional; endocrine; and metabolic disorders (18 sources) Morbid obesity; Translations: [Morbid (severe) obesity due to excess calories] 09-24-2024 Chronic Other nutritional; endocrine; and metabolic disorders (3 sources) Morbid (severe) obesity due to excess calories; Translations: [Morbid (severe) obesity due to excess calories] Onset: 1 Chronic Other nutritional; endocrine; and metabolic disorders (3 sources) Body mass index (BMI) 40.0-44.9, adult; Translations: [Body mass index [BMI] 40.0-44.9, adult] Onset: 1 Chronic Other screening for suspected conditions (not mental disorders or infectious disease) (20 sources) CT of chest abnormal; Translations: [Abnormal findings on diagnostic imaging of other specified body structures] Onset: 5 09-23-2024 Chronic Other skin disorders (1 source) Eruption; Translations: [Rash and other nonspecific skin eruption] Episodic Other upper respiratory disease (10 sources) Nasal congestion; Translations: [Nasal congestion] 02-17-2025 Episodic Residual codes; unclassified (20 sources) Sleep apnea; Translations: [Sleep apnea, unspecified] Onset: 8 03-11-2021 Chronic Residual codes; unclassified (2 sources) Obstructive sleep apnea (adult) (pediatric); Translations: [Obstructive sleep apnea (adult) (pediatric)] Onset: 5 Chronic Residual codes; unclassified (1 source) Generalized aches and pains; Translations: [Pain, unspecified] Episodic Residual codes; unclassified (12 sources) Past history of procedure; Translations: [Personal history of other medical treatment] 09-16-2024 Episodic Comment on above: 09/2013 [facility], PREOP C HOLECYSTECTOMY Screening and history of mental health and substance abuse codes (20 sources) Ex-smoker; Translations: [Personal history of nicotine dependence] Onset: 1 03-16-2021 Episodic Comment on above: QUIT CIGARETTES 2012 Skin and subcutaneous tissue infections (1 source) Cellulitis of skin; Translations: [Cellulitis, unspecified] Episodic Unclassified (1 source) Acidosis, unspecified; Translations: [Acidosis, unspecified] Onset: 5 Viral infection (2 sources) Verruca vulgaris; Translations: [Viral wart, unspecified] Episodic Past or Other Problems Problem Classification Problem Date Documented Date Episodic/Chronic Acquired foot deformities (20 sources) Abduction deformity of foot; Translations: [Valgus deformity, not elsewhere classified, left ankle] Onset: 04-02-2023 04-02-2023 Episodic Acute and unspecified renal failure (14 sources) Acute renal failure syndrome; Translations: [Acute kidney failure, unspecified] Onset: 08-27-2024 08-27-2024 Episodic Allergic reactions (20 sources) Solar degeneration; Translations: [Other skin changes due to chronic exposure to nonionizing radiation] Onset: 06-29-2024 06-29-2024 Episodic Biliary tract disease (20 sources) Gallstone; Translations: [Calculus of gallbladder without cholecystitis without obstruction] Onset: 03-08-2005 Resolved: 09-21-2014 09-21-2014 Episodic Fluid and electrolyte disorders (18 sources) Hyponatremia; Translations: [Hypo-osmolality and hyponatremia] Onset: 09-03-2024 08-28-2024 Episodic Genitourinary symptoms and ill-defined conditions (2 sources) Proteinuria, unspecified; Translations: [Frequency of micturition] Onset: 05-15-2021 Episodic Hemorrhoids (20 sources) Internal hemorrhoids; Translations: [Other hemorrhoids] Onset: 03-08-2005 Resolved: 09-21-2014 09-21-2014 Episodic Influenza (20 sources) Influenza due to Influenza A virus; [...] Onset: 03-08-2005 Resolved: 09-21-2014 09-21-2014 Episodic Other connective tissue disease (20 sources) [...] sources) Venous insufficiency (chronic) (peripheral); Translations: [Venous (peripheral) insufficiency] Onset: 03-11-2021 Episodic Other lower respiratory disease (1 source) [...] callosities; Translations: [Foot callus] Onset: 04-02-2023 Episodic Pneumonia (except that caused by tuberculosis or sexually transmitted disease) (17 sources) Pneumonia; Translations: [Pneumonia, unspecified organism] Onset: 08-28-2024 08-16-2024 Episodic Residual codes; unclassified (20 sources) Family history of malignant neoplasm of pancreas; Translations: [Family history of malignant neoplasm of digestive organs] Onset: 04-02-2023 04-02-2023 Episodic Septicemia (except in labor) (18 sources) Sepsis; Translations: [Sepsis, unspecified organism] Onset: 08-28-2024 08-16-2024 Episodic Spondylosis; intervertebral disc disorders; other back problems (20 sources) Neck pain; Translations: [Cervicalgia] Onset: 06-26-2017 03-11-2021 Episodic Sprains and strains (20 sources) Sprain of ligament of lumbosacral joint; Translations: [Sprain of unspecified parts of lumbar spine and pelvis, initial encounter] Onset: 03-08-2005 Resolved: 09-21-2014 09-21-2014 Episodic Syncope (18 sources) Syncope; Translations: [Syncope and collapse] Onset: 08-28-2024 08-27-2024 Episodic Varicose veins of lower extremity (20 sources) Varicose veins of lower extremity; Translations: [Asymptomatic varicose veins of unspecified lower extremity] Onset: 03-08-2005 Resolved: 09-21-2014 03-11-2021 Episodic Results Test Name Value Interpretation Reference Range [facility] MARY AGUIAR ([id number]) 1955 M Date Time Provider Department 04/29/25 11:15 AM [place] [facility] During your visit today, we recorded the following information about you: LALITA PEREZ 04/29/2025 11:49 AM Signed Patient presents for flu vaccine. Denies any problems at this time. Tolerated injection well. Lalita Perez LPN Allergies As of Date: 04/29/2025 Noted Allergy Reaction ACTOS (PIOGLITAZONE) 07/06/2024 12 - Shortness of Breath FARXIGA (DAPAGLIFLOZIN) 05/16/2023 14 - Other: See Comments Comments: tachycardi and felt poorly on it. LISINOPRIL 10/30/2007 3 - Cough Date Reviewed: 04/08/2025 Reviewed by: Rick Sow MD - Fully Assessed Reason for Visit: Immunizations [194] Cmt: Flu vaccination Primary Visit Diagnosis:Need for influenza vaccination [Z23] Order(s):INFLUENZA VACCINE, PRSV FREE, AGE 65+ YR, HIGH DOSE, TRIVALENT (FLUZONE HIGH-DOSE) [07620WJC] Order #: [id number] Prescriptions as of 04/29/2025 - metoprolol succinate ER (TOPROL XL) 25 mg 24 hr tablet Take 1 tablet by mouth once daily. - albuterol HFA (PROVENTIL HFA, VENTOLIN HFA) 90 mcg/actuation inhaler Inhale 2 puffs as instructed every 4 hours as needed for wheezing/shortness of breath. - ammonium lactate (LAC-HYDRIN) 12 % cream Apply to affected area as needed. - atorvastatin (LIPITOR) 20 mg tablet Take 1 tablet by mouth once daily. For cholesterol. - amLODIPine (NORVASC) 5 mg tablet Take 1 tablet by mouth once daily. - glimepiride (AMARYL) 4 mg tablet Take 1 tab twice a day. - losartan (COZAAR) 50 mg tablet Take 2 tablets by mouth once daily. - metFORMIN (GLUCOPHAGE) 1,000 mg tablet Take 1 tablet by mouth two times a day with meals. - furosemide (LASIX) 40 mg tablet Take 1 tablet by mouth once daily. As needed for leg swelling or 3-5 lb weight gain. Per cardio: [facility] - spironolactone (ALDACTONE) 25 mg tablet Take 1 tablet by mouth once daily. Per [facility] - cyclobenzaprine (FLEXERIL) 10 mg tablet Take 1 tablet by mouth three times a day as needed for muscle spasm. - blood sugar diagnostic (BLOOD GLUCOSE TEST) test strip Test blood sugar(s) 1-2 times daily. Dx: Type 2 DM - Uncontrolled E11.65 Insulin: No - Lancets lancets Test blood sugar(s) 1-2 times daily. Dx: Type 2 DM - Uncontrolled E11.65 Insulin: No - Aspirin 81 mg tab Take 1 tablet by mouth once daily. Take with food. - [place]-3 Fatty Acids-Vitamin E (FISH OIL) 1,000 mg cap Take 1 capsule by mouth once daily. - MULTI-VITAMIN ORAL Take by mouth. Problem List As Of Date 04/29/2025 Noted Resolved Internal hemorrhoids without mention of [...] Uncontrolled type 2 diabetes mellitus with hype*07/28/2021 04/08/2025 Palpitations [R00.2] 11/29/2021 Prostate disorder [N42.9] 11/29/2021 [...] [L84] 04/02/2023 Skin cancer screening [Z12.83] 04/07/2024 Actinic skin damage [L57.8] 06/29/2024 Bilateral carotid artery stenosis [I65.23] 10/05/[address] [Z78.9] 04/08/2025 [place] (more content not included)... Normal [facility] Cardiology Visit Reporton Cardiology Visit Report Normal [facility] CNOVon 04-08-2025 CNOV Office Visit (FAMPWS ) -- COSMEMARY Parker ([id number]) 1955 M Date Time Provider Department 04/08/25 10:00 AM RICK SOWOLIVIA During your visit today, we recorded the following information about you: Pulse Respiration Blood pressure Weight 56/minute 18/minute 130/68 146.7 kg Height 1.791 m Rick Sow MD 04/08/2025 9:38 PM Signed Mary E Cosme is a 69 year old male here for a Medicare wellness visit. Medicare Health Risk Assessment General Health Good Exercise: Minutes/Day 30 min Exercise: Days/Week 5 days Alcohol: Daily Use Never Alcohol: Drinks/Day Patient does not drink Alcohol: 6 or more drinks Never Feel off balance No Concerns: Teeth/Dentures No Concerns: Sexual function No Troubled by feelings declined Frequency: Eating healthy diet Several days ADLs requiring help None of the above Safety precautions in home/vehicle Yes Smoke, vape, chews tobacco No Difficulty hearing No Difficulty seeing Decline Current Providers Specialists: I have reviewed specialist-related care of the patient in the medical record. Medical/Family history review Reviewed and updated problem list, medical/surgical/family/so cial history, medications, and allergies. Opioid use review Opioid Medications (last 90 days) No data to display Anxiety/Depression screening PHQ-2 Score: 0 (Lower risk for depression) NEREIDA-2 Score: 0 (Lower risk for anxiety) Recommendation: no further intervention at this time Cognitive screening Mini Cog Score: 5 Cognitive screening reviewed and No further action needed (score 3-5). Mini-Cog Patient asked to remember the following three words: Banana, [place] and Chair Visuospatial/Executive Functioning: Clock drawin/2 (Normal clock with all number in correct sequence and position, hands are correct = 2 points, inability or refusal to draw a clock = 0) Three word recall: 3/3 Total score: 5/5 (Total score = word recall score + clock draw score) Functional Observation Was the patient's Timed Up AND Go test unsteady or >= 12 seconds? No Advance Care Planning Patient did not wish or was not able to name a surrogate decision maker or provide an advance care plan Measurements BP 130/68 (BP Site: Right Arm, BP Position: Sitting, BP Cuff Size: Large Adult) Pulse (!) 56 Resp 18 Ht 179.1 cm (5' 10.5") Wt (!) 146.7 kg (323 lb 6.4 oz) BMI 45.75 kg/m? Vision Screening: Follows with optometry/ophthalmology Assessment/Plan Medicare annual wellness visit, subsequent (Z00.00) - Counseled on healthy diet and regular exercise - Fall avoidance information provided - Personalized prevention plan provided See below Chief Complaint Patient presents with: Medicare Wellness Exam HPI Mary Aguiar is a 69 year old male who presents here today for a medicare wellness and a routine follow up. Patient with hx of HTN, DM2, hyperlipidemia, former smoker, obesity, CATHERINE, rosacea, OA, nenita insufficiency, and those as below. Mary Aguiar is accompanied by his , who is providing additional history. Mary reports a recent hospitalization for bilateral pneumonia, during which he experienced confusion and a syncopal episode. He was initially seen in urgent care, where he was diagnosed with the flu and later developed pneumonia. He was admitted to the ICU and treated with antibiotics. He denies any recent fevers, frequent headaches, changes in hearing or vision, or issues with his nose or throat. He also denies wheezing, dyspnea, hemoptysis, chest pain, palpitations, nausea, emesis, diarrhea, or heartburn. He reports occasional blood in his stool due to hemorrhoids but denies any discomfort with urination or changes in frequency. He also denies any new or unusual aches and pains, easy bruising or bleeding, changes in tolerance to heat or cold, seizures, or tremors. Mary has a history of carotid artery stenosis, with a recent ultrasound showing less than 50% blockage on the right and 50-70% on the left. He also has a history of AFib, for which he is on anticoagulation therapy. He denies any recent episodes of rapid or irregular heart rates. He has a history of DM, with recent blood glucose readings ranging from 80-130 mg/dL. He reports occasional hypoglycemic episodes, which he manages with orange juice. His recent A1c was 6.6%, down from 7.1%. He is also working on weight loss, with a recent weight of 315 lbs, down from 338 lbs in August. Mary reports lower back pain after walking for 15-30 minutes, which is relieved by sitting for a few minutes. He does not experience this pain when using an elliptical or treadmill. He denies any pain radiating down his legs. He also reports a history of calluses on his feet, for which he uses ammonium lactate lotion. Mary has a living will and durable power of estate planning attorney, with (more content not included)... Normal [facility] ALBUMIN/CREATININE RATIO, UR INEon 04-02-2025 Albumin DL <= 20 mg/L (U) [Mass/Vol] 27.1 mg/L Normal [facility] Comment on above: Order Comment: Speci men Type: URINE SPECIMENOrdering Facility: [facility] Address: [address] [place] [address] Performed By: #### U ACR ####[facility] LABCLIA [id number] [place] [address] [place] Albumin/Creatinine (U) [Mass ratio] 33 mg/g High <30 [facility] Comment on above: Order Comment: Speci men Type: URINE SPECIMENOrdering Facility: [facility] Address: [address] [place] [address] Result Comment: Adul t Male and Female Nephrotic Criteria: <30 mg/g is considered normal to mildly increased 30-300 mg/g is considered moderately increased >300 mg/g is considered severely increased KDIGO. (2013). KDIGO 2012 Clinical Practice Guideline for the Evaluation and Management of Chronic Kidney Disease. Official Journal of the International Society of Nephrology, 3(1), 1-150. Performed By: #### U ACR ####[facility] LABCLIA [id number] [place] [address] [place] Creatinine (U) [Mass/Vol] 81.7 mg/dL Normal 20.0-300.0 [facility] Comment on above: Order Comment: Speci men Type: URINE SPECIMENOrdering Facility: [facility] Address: [address] [place] [address] Performed By: #### U ACR ####[facility] LABCLIA [id number] [place] [address] [place] CBC W Auto Differential pane l (Bld)on 04-02-2025 Basophils (Bld) [#/Vol] 0.05 10*3/uL Normal <0.11 [facility] Comment on above: Order Comment: Speci men Type: BLOOD SPECIMENOrdering Facility: [facility] Address: [address] [place] [address] Performed By: #### 5 7021-8 ####[facility] LABCLIA [id number] [place] [address] [place] Basophils/100 WBC (Bld) 0.7 % Normal [facility] Comment on above: Order Comment: Speci men Type: BLOOD SPECIMENOrdering Facility: [facility] Address: [address] [place] [address] Performed By: #### 5 7021-8 ####[facility] LABCLIA [id number] [address], [place] [address] [place] Differential cell count method Nom (Bld) Auto Normal [facility] Comment on above: Order Comment: Speci men Type: BLOOD SPECIMENOrdering Facility: [facility] Address: [address] [place] [address] Performed By: #### 5 7021-8 ####[facility] LABCLIA [id number] [address], [place] [address] [place] Eosinophils (Bld) [#/Vol] 0.33 10*3/uL Normal <0.46 [facility] Comment on above: Order Comment: Speci men Type: BLOOD SPECIMENOrdering Facility: [facility] Address: [address] [place] [address] Performed By: #### 5 7021-8 ####[facility] LABCLIA [id number] [place] [address] [place] Eosinophils/100 WBC (Bld) 4.3 % Normal [facility] Comment on above: Order Comment: Speci men Type: BLOOD SPECIMENOrdering Facility: [facility] Address: [address] [place] [address] Performed By: #### 5 7021-8 ####[facility] LABCLIA [id number] [place] [address] [place] Erythrocyte distribution width (RBC) [Ratio] 13.2 % Normal 11.5-15.0 [facility] Comment on above: Order Comment: Speci men Type: BLOOD SPECIMENOrdering Facility: [facility] Address: [address] [place] [address] Performed By: #### 5 7021-8 ####[facility] LABCLIA [id number] [place] [address] [place] Hematocrit (Bld) [Volume fraction] 43.6 % Normal 39.0-51.0 [facility] Comment on above: Order Comment: Speci men Type: BLOOD SPECIMENOrdering Facility: [facility] Address: [address] [place] [address] Performed By: #### 5 7021-8 ####[facility] LABIA [id number] [place] [address] [place] Hemoglobin (Bld) [Mass/Vol] 14.3 g/dL Normal 13.0-17.0 [facility] Comment on above: Order Comment: Speci men Type: BLOOD SPECIMENOrdering Facility: [facility] Address: [address] [place] [address] Performed By: #### 5 7021-8 ####[facility] LABIA [id number] [place] [address] [place] Immature granulocytes (Bld) [#/Vol] 10*3/uL Normal <0.10 [facility] Comment on above: Order Comment: Speci men Type: BLOOD SPECIMENOrdering Facility: [facility] Address: [address] [place] [address] Performed By: #### 5 7021-8 ####[facility] LABIA [id number] [place] [address] [place] Immature granulocytes/100 WBC (Bld) 0.3 % Normal [facility] Comment on above: Order Comment: Speci men Type: BLOOD SPECIMENOrdering Facility: [facility] Address: [address] [place] [address] Performed By: #### 5 7021-8 ####[facility] LABIA [id number] [place] [id number] [place] Lymphocytes (Bld) [#/Vol] 2.61 10*3/uL Normal 1.00-4.00 [facility] Comment on above: Order Comment: Speci men Type: BLOOD SPECIMENOrdering Facility: [facility] Address: [address] [place] [address] Performed By: #### 5 7021-8 ####[facility] LABCLIA [id number] [place] [address] [place] Lymphocytes/100 WBC (Bld) 34.3 % Normal [facility] Comment on above: Order Comment: Speci men Type: BLOOD SPECIMENOrdering Facility: [facility] Address: [address] [place] [address] Performed By: #### 5 7021-8 ####[facility] LABIA [id number] [place] [address] [place] MCH (RBC) [Entitic mass] 29.1 pg Normal 26.0-34.0 [facility] Comment on above: Order Comment: Speci men Type: BLOOD SPECIMENOrdering Facility: [facility] Address: [address] [place] [address] Performed By: #### 5 7021-8 ####[facility] LABIA [id number] [place] [address] [place] MCHC (RBC) [Mass/Vol] 32.8 g/dL Normal 30.5-36.0 [facility] Comment on above: Order Comment: Speci men Type: BLOOD SPECIMENOrdering Facility: [facility] Address: [address] [place] [address] Performed By: #### 5 7021-8 ####[facility] LABIA [id number] [place] [address] [place] MCV (RBC) [Entitic vol] 88.8 fL Normal 80.0-100.0 [facility] Comment on above: Order Comment: Speci men Type: BLOOD SPECIMENOrdering Facility: [facility] Address: [address] [place] [address] Performed By: #### 5 7021-8 ####[facility] LABIA [id number] [place] [address] [place] Monocytes (Bld) [#/Vol] 0.52 10*3/uL Normal <0.87 [facility] Comment on above: Order Comment: Speci men Type: BLOOD SPECIMENOrdering Facility: [facility] Address: [address] [place] [address] Performed By: #### 5 7021-8 ####[facility] LABCLIA [id number] [address] [address] [place] Monocytes/100 WBC (Bld) 6.8 % Normal [facility] Comment on above: Order Comment: Speci men Type: BLOOD SPECIMENOrdering Facility: [facility] Address: [address] [place] [address] Performed By: #### 5 7021-8 ####[facility] LABCLIA [id number] [place] [address] [place] Neutrophils (Bld) [#/Vol] 4.08 10*3/uL Normal 1.45-7.50 [facility] Comment on above: Order Comment: Speci men Type: BLOOD SPECIMENOrdering Facility: [facility] Address: [address] [place] [address] Performed By: #### 5 7021-8 ####[facility] LABCLIA [id number] [place] [address] [place] Neutrophils/100 WBC (Bld) 53.6 % Normal [facility] Comment on above: Order Comment: Speci men Type: BLOOD SPECIMENOrdering Facility: [facility] Address: [address] [place] [address] Performed By: #### 5 7021-8 ####[facility] LABCLIA [id number] [place] [id number] [place] Nucleated RBC (Bld) [#/Vol] 10*3/uL Normal <0.01 [facility] Comment on above: Order Comment: Speci men Type: BLOOD SPECIMENOrdering Facility: [facility] Address: [address] [place] [address] Performed By: #### 5 7021-8 ####[facility] LABCLIA [id number] [address] [place] [address] [place] Nucleated RBC/100 WBC (Bld) [Ratio] 0.0 /100 WBC Normal [facility] Comment on above: Order Comment: Speci men Type: BLOOD SPECIMENOrdering Facility: [facility] Address: [address] [place] [address] Performed By: #### 5 7021-8 ####[facility] LABCLIA [id number] [address], [facility] [place] Platelet mean volume (Bld) [Entitic vol] 10.5 fL Normal 9.0-12.7 [facility] Comment on above: Order Comment: Speci men Type: BLOOD SPECIMENOrdering Facility: [facility] Address: [address] [place] [address] Performed By: #### 5 7021-8 ####[facility] LABIA [id number] [place] [address] [place] Platelets (Bld) [#/Vol] 219 10*3/uL Normal 150-400 [facility] Comment on above: Order Comment: Speci men Type: BLOOD SPECIMENOrdering Facility: [facility] Address: [address] [place] [address] Performed By: #### 5 7021-8 ####[facility] LABIA [id number] [address], [facility] [place] RBC (Bld) [#/Vol] 4.91 10*6/uL Normal 4.20-6.00 [facility] Comment on above: Order Comment: Speci men Type: BLOOD SPECIMENOrdering Facility: [facility] Address: [address] [place] [address] Performed By: #### 5 7021-8 ####[facility] LABCLIA [id number] [address], [facility] [place] WBC (Bld) [#/Vol] 7.61 10*3/uL Normal 3.70-11.00 [facility] Comment on above: Order Comment: Speci men Type: BLOOD SPECIMENOrdering Facility: [facility] Address: [address] [place] [address] Performed By: #### 5 7021-8 ####[facility] LABCLIA [id number] [place] [address] [place] Comprehensive metabolic 2000 panelon 04-02-2025 Albumin [Mass/Vol] 4.2 g/dL Normal 3.9-4.9 [facility] Comment on above: Order Comment: Speci men Type: BLOOD SPECIMENOrdering Facility: [facility] Address: [address] [place] [address] Performed By: #### 2 4323-8, LIPNF ####[facility] LABCLIA [id number] [place] [address] [place] ALP [Catalytic activity/Vol] 47 U/L Normal 38-113 [facility] Comment on above: Order Comment: Speci men Type: BLOOD SPECIMENOrdering Facility: [facility] Address: [address] [place] [address] Performed By: #### 2 4323-8, LIPNF ####[facility] LABCLIA [id number] [place] [address] [place] ALT [Catalytic activity/Vol] 15 U/L Normal 10-54 [facility] Comment on above: Order Comment: Speci men Type: BLOOD SPECIMENOrdering Facility: [facility] Address: [address] [place] [address] Performed By: #### 2 4323-8, LIPNF ####[facility] LABCLIA [id number] [place] [id number] [place] Anion gap [Moles/Vol] 13 mmol/L Normal 8-15 [facility] Comment on above: Order Comment: Speci men Type: BLOOD SPECIMENOrdering Facility: [facility] Address: [address] [place] [address] Performed By: #### 2 4323-8, LIPNF ####[facility] LABCLIA [id number] [place] [address] [place] AST [Catalytic activity/Vol] 17 U/L Normal 14-40 [facility] Comment on above: Order Comment: Speci men Type: BLOOD SPECIMENOrdering Facility: [facility] Address: [address] [place] [address] Performed By: #### 2 4323-8, LIPNF ####[facility] LABCLIA [id number] [place] [address] [place] Bilirubin [Mass/Vol] 0.8 mg/dL Normal 0.2-1.3 [facility] Comment on above: Order Comment: Speci men Type: BLOOD SPECIMENOrdering Facility: [facility] Address: [address] [place] [address] Performed By: #### 2 4323-8, LIPNF ####[facility] LABCLIA [id number] [place] [address] [place] Calcium [Mass/Vol] 9.4 mg/dL Normal 8.5-10.2 [facility] Comment on above: Order Comment: Speci men Type: BLOOD SPECIMENOrdering Facility: [facility] Address: [address] [place] [address] Performed By: #### 2 4323-8, LIPNF ####[facility] LABCLIA [id number] [place] [id number] [place] Chloride [Moles/Vol] 101 mmol/L Normal 98-107 [facility] Comment on above: Order Comment: Speci men Type: BLOOD SPECIMENOrdering Facility: [facility] Address: [address] [place] [address] Performed By: #### 2 4323-8, LIPNF ####[facility] LABCLIA [id number] [place] [address] [place] CO2 [Moles/Vol] 25 mmol/L Normal 22-30 [facility] Comment on above: Order Comment: Speci men Type: BLOOD SPECIMENOrdering Facility: [facility] Address: [address] [place] [address] Performed By: #### 2 4323-8, LIPNF ####[facility] LABIA [id number] [place] [address] [place] Creatinine [Mass/Vol] 0.98 mg/dL Normal 0.73-1.22 [facility] Comment on above: Order Comment: Speci men Type: BLOOD SPECIMENOrdering Facility: [facility] Address: [address] [place] [address] Performed By: #### 2 4323-8, LIPNF ####[facility] LABIA [id number] [place] [address] [place] eGFRcr SerPlBld CKD-EPI 2020 82 mL/min/1.73m??? Normal >=60 [facility] Comment on above: Order Comment: Speci men Type: BLOOD SPECIMENOrdering Facility: [facility] Address: [address] [place] [address] Result Comment: Angeline mated Glomerular Filtration Rate [...] GFR. Performed By: #### 2 4323-8, LIPNF ####[facility] LABIA [id number] [place] [id number] [place] Glucose [Mass/Vol] 154 mg/dL High 74-99 [facility] Comment on above: Order Comment: Speci men Type: BLOOD SPECIMENOrdering Facility: [facility] Address: [address] [place] [address] Result Comment: The [place] Diabetes Association (ADA) provides guidance for cutoff [...] Standards of Medical Care in Diabetes 2016, [place] Diabetes Association. Diabetes Care. 2016.39(Suppl 1). Performed By: #### 2 4323-8, LIPNF ####[facility] LABCLIA [id number] [place] [address] [place] Potassium [Moles/Vol] 4.6 mmol/L Normal 3.7-5.1 [facility] Comment on above: Order Comment: Speci men Type: BLOOD SPECIMENOrdering Facility: [facility] Address: [address] [place] [address] Performed By: #### 2 4323-8, LIPNF ####[facility] LABIA [id number] [place] [id number] [place] Protein [Mass/Vol] 7.2 g/dL Normal 6.3-8.0 [facility] Comment on above: Order Comment: Speci men Type: BLOOD SPECIMENOrdering Facility: [facility] Address: [address] [place] [address] Performed By: #### 2 4323-8, LIPNF ####[facility] LABCLIA [id number] [place] [id number] [place] Sodium [Moles/Vol] 139 mmol/L Normal 136-144 [facility] Comment on above: Order Comment: Speci men Type: BLOOD SPECIMENOrdering Facility: [facility] Address: [address] [place] [address] Performed By: #### 2 4323-8, LIPNF ####[facility] LABCLIA [id number] [place] [address] [place] Urea nitrogen [Mass/Vol] 20 mg/dL Normal 9-24 [facility] Comment on above: Order Comment: Speci men Type: BLOOD SPECIMENOrdering Facility: [facility] Address: [address] [place] [address] Performed By: #### 2 4323-8, LIPNF ####[facility] LABCLIA [id number] [place] [address] [place] HbA1c (Bld)on 04-02-2025 Average glucose Estimated from glycated hemoglobin (Bld) [Mass/Vol] 143 mg/dL Normal [facility] Comment on above: Order Comment: Delia men Type: BLOOD SPECIMENOrdering Facility: [facility] Address: [address] [place] [address] Result Comment: eAG: (Estimated average glucose) is a calculated value from HgbA1c and is career services representative of the average blood glucose level in the last 2-3 month period. Performed By: #### 5 5454-3 ####[facility] LABCLIA [id number] [place] [address] [place] HbA1c (Bld) [Mass fraction] 6.6 % High 4.3-5.6 [facility] Comment on above: Order Comment: Delia men Type: BLOOD SPECIMENOrdering Facility: [facility] Address: [address] [place] [address] Result Comment: Amer [place] Diabetes Association guidelines indicate that patients with HgbA1c in the range 5.7-6.4% are at increased risk for development of diabetes, and intervention by lifestyle modification may be beneficial. HgbA1c greater or equal to 6.5% is considered diagnostic of diabetes. Performed By: #### 5 5454-3 ####[facility] LABCLIA [id number] [address], [facility] [facility] LIPID PANEL, NONFASTINGon Cholesterol [Mass/Vol] 112 mg/dL Normal <200 [facility] Comment on above: Order Comment: Speci men Type: BLOOD SPECIMENOrdering Facility: [facility] Address: [address] [place] [address] Result Comment: <200 mg/dL, Desirable 200-239 mg/dL, Borderline high >239 mg/dL, High Performed By: #### 2 4323-8, LIPNF ####[facility] LABCLIA [id number] [address], [address] STATES OF [facility] HDL CHOLESTEROL, NF 35 mg/dL Low >39 [facility] Comment on above: Order Comment: Speci men Type: BLOOD SPECIMENOrdering Facility: [facility] Address: [address] [place] [address] Result Comment: 40-5 9 mg/dL, Acceptable >59 mg/dL, High: Negative risk factor for coronary heart disease <40 mg/dL, Low: Positive risk factor for coronary heart disease Performed By: #### 2 4323-8, LIPNF ####[facility] LABCLIA [id number] [address], [address] LDL CHOLESTEROL CALCULATED, NF 54 mg/dL Normal <100 [facility] Comment on above: Order Comment: Speci men Type: BLOOD SPECIMENOrdering Facility: [facility] Address: [address] [place] [address] Result Comment: <100 mg/dL, Optimal 100-129 mg/dL, Near optimal/above optimal 130-159 mg/dL, Borderline high 160-189 mg/dL, High >189 mg/dL, Very high Secondary prevention optimal LDL Cholesterol levels are recommended to be <70 mg/dL LDL cholesterol is calculated using the Bo-NIH equation. Performed By: #### 2 4323-8, LIPNF ####[facility] LABCLIA [id number] [address], [facility] [facility] LDL/HDL RATIO, NF 1.54 mg/dL Normal <2.54 [facility] Comment on above: Order Comment: Delia mccoy Type: BLOOD SPECIMENOrdering Facility: [facility] Address: [address] [place] [address] Result Comment: Haylie aragon: 1. National Cholesterol Education Program ATP III Guideline At-A-Glance Quick Desk Reference: National Heart, Lung, and Blood [place]. National Institutes of Health. 2001: NIH Publication No. 01-3305. 2. An International Atherosclerosis Society position paper: global recommendations for the management of dyslipidemia: executive summary, Atherosclerosis. 2014: 232(2):410-413. Performed By: #### 2 4323-8, LIPNF ####[facility] LABCLIA [id number] [address] [place] NON HDL CHOL, NF 77 mg/dL Normal <130 [facility] Comment on above: Order Comment: Delia mccoy Type: BLOOD SPECIMENOrdering Facility: [facility] Address: [address] [place] [address] Result Comment: <130 mg/dL, Optimal 130-159 mg/dL, Near optimal/above optimal 160-189 mg/dL, Borderline high 190-219 mg/dL, High >219 mg/dL, Very high Secondary prevention optimal non HDL Cholesterol levels are recommended to be <100 mg/dL Performed By: #### 2 4323-8, LIPNF ####[facility] LABCLIA [id number] [place] [address] [place] T CHOL/HDL RATIO NF 3.20 mg/dL Normal <5.10 [facility] Comment on above: Order Comment: Delia nadine Type: BLOOD SPECIMENOrdering Facility: [facility] Address: [address] [place] [address] Performed By: #### 2 4323-8, LIPNF ####[facility] LABCLIA [id number] [place] [id number] [place] TRIGLYCERIDES, NF 131 mg/dL Normal <150 [facility] Comment on above: Order Comment: Speci men Type: BLOOD SPECIMENOrdering Facility: [facility] Address: [address] [place] [address] Result Comment: <150 mg/dL, Normal 150-199 mg/dL, Borderline high 200-499 mg/dL, High >499 mg/dL, Very high Performed By: #### 2 4323-8, LIPNF ####[facility] LABCLIA [id number] [place] [address] [place] VLDL CHOLESTEROL, NF 19 mg/dL Normal <30 [facility] Comment on above: Order Comment: Speci men Type: BLOOD SPECIMENOrdering Facility: [facility] Address: [address] [place] [address] Performed By: #### 2 4323-8, LIPNF ####[facility] LABCLIA [id number] [place] [address] [place] [facility] Prostate specific Ag [Mass/Vol] 0.71 ng/mL Normal <2.60 [facility] Comment on above: Order Comment: Speci men Type: BLOOD SPECIMENOrdering Facility: [facility] Address: [address] [place] [address] Result Comment: Tota l PSA test methodology used is the Electrochemiluminescence Immunoassay by [employer]. Total PSA values by differing methodologies cannot be interchanged. Performed By: #### 2 857-1 ####[facility] LABCLIA [id number] [place] [address] [place] Urinalysis complete panel (U )on 04-02-2025 Bacteria LM.HPF (Urine sed) [#/Area] Negative Normal Negative [facility] Comment on above: Order Comment: Speci men Type: URINE SPECIMENOrdering Facility: [facility] Address: [address] [place] [address] Performed By: #### 2 4356-8 ####[facility] LABCLIA [id number] [id number] [address] [place] Bilirubin Ql (U) Negative Normal Negative [facility] Comment on above: Order Comment: Speci men Type: URINE SPECIMENOrdering Facility: [facility] Address: [address] [place] [address] Performed By: #### 2 4356-8 ####[facility] LABCLIA [id number] [place] [address] [place] Clarity (Unsp spec) Clear Normal Clear [facility] Comment on above: Order Comment: Speci men Type: URINE SPECIMENOrdering Facility: [facility] Address: [address] [place] [address] Performed By: #### 2 4356-8 ####[facility] LABCLIA [id number] [place] [address] [place] Color (U) Yellow Normal Yellow [facility] Comment on above: Order Comment: Speci men Type: URINE SPECIMENOrdering Facility: [facility] Address: [address] [place] [address] Performed By: #### 2 4356-8 ####[facility] LABCLIA [id number] [place] [address] [place] Epithelial cells LM.HPF (Urine sed) [#/Area] None Seen Normal [facility] Comment on above: Order Comment: Speci men Type: URINE SPECIMENOrdering Facility: [facility] Address: [address] [place] [address] Performed By: #### 2 4356-8 ####[facility] LABCLIA [id number] [place] [id number] [place] Glucose Test strip (U) [Mass/Vol] Negative Normal Negative [facility] Comment on above: Order Comment: Speci men Type: URINE SPECIMENOrdering Facility: [facility] Address: [address] [place] [address] Performed By: #### 2 4356-8 ####[facility] LABCLIA [id number] [facility] [address] [place] [address] [place] Hemoglobin Ql (U) Negative Normal Negative [facility] Comment on above: Order Comment: Speci men Type: URINE SPECIMENOrdering Facility: [facility] Address: [address] [place] [address] Performed By: #### 2 4356-8 ####[facility] LABCLIA [id number] [address], [facility] [place] Hyaline casts (Urine sed) [#/Area] 0 /[LPF] Normal 0 /LPF [facility] Comment on above: Order Comment: Speci men Type: URINE SPECIMENOrdering Facility: [facility] Address: [address] [place] [address] Performed By: #### 2 4356-8 ####[facility] LABCLIA [id number] [address], [place] [address] [place] Ketones Ql (U) Negative Normal Negative [facility] Comment on above: Order Comment: Speci men Type: URINE SPECIMENOrdering Facility: [facility] Address: [address] [place] [address] Performed By: #### 2 4356-8 ####[facility] LABCLIA [id number] [address], [facility] [place] Leukocyte esterase Test strip Ql (U) Negative Normal Negative [facility] Comment on above: Order Comment: Speci men Type: URINE SPECIMENOrdering Facility: [facility] Address: [address] [place] [address] Performed By: #### 2 4356-8 ####[facility] LABCLIA [id number] [address], [facility] [place] Nitrite Ql (U) Negative Normal Negative [facility] Comment on above: Order Comment: Speci men Type: URINE SPECIMENOrdering Facility: [facility] Address: [address] [place] [address] Performed By: #### 2 4356-8 ####[facility] LABCLIA [id number] [place] [address] [place] pH (U) 6.0 [pH] Normal 5.0-8.0 [facility] Comment on above: Order Comment: Speci men Type: URINE SPECIMENOrdering Facility: [facility] Address: [address] [place] [address] Performed By: #### 2 4356-8 ####[facility] LABIA [id number] [place] [address] [place] Protein (U) [Mass/Vol] Negative Normal Negative [facility] Comment on above: Order Comment: Speci men Type: URINE SPECIMENOrdering Facility: [facility] Address: [address] [place] [address] Performed By: #### 2 4356-8 ####[facility] LABIA [id number] [place] [address] [place] RBC LM.HPF (Urine sed) [#/Area] 0-2 /HPF Normal 0-2 /HPF [facility] Comment on above: Order Comment: Speci men Type: URINE SPECIMENOrdering Facility: [facility] Address: [address] [place] [address] Performed By: #### 2 4356-8 ####[facility] LABIA [id number] [place] [address] [place] Specific gravity (U) [Rel density] 1.014 Normal 1.005-1.030 [facility] Comment on above: Order Comment: Speci men Type: URINE SPECIMENOrdering Facility: [facility] Address: [address] [place] [address] Performed By: #### 2 4356-8 ####[facility] LABIA [id number] [address] [place] Urobilinogen Ql (U) 0.2 EU/dL Normal 0.2-1.0 EU/dL [facility] Comment on above: Order Comment: Speci men Type: URINE SPECIMENOrdering Facility: [facility] Address: [address] [place] [address] Performed By: #### 2 4356-8 ####[facility] LABCLIA [id number] [place] [id number] [place] WBC LM.HPF (Urine sed) [#/Area] 0-5 /HPF Normal 0-5 /HPF [facility] Comment on above: Order Comment: Speci men Type: URINE SPECIMENOrdering Facility: [facility] Address: [address] [place] [address] Performed By: #### 2 4356-8 ####[facility] LABCLIA [id number] [address] [place] Pulmonary Visit Reporton Pulmonary Visit Report Normal [facility] Chest without Contraston Chest without Contrast Normal [facility] Pulmonary Visit Reporton Pulmonary Visit Report Normal [facility] Anion gap in Serum or Plasma Ordered By: Raquel Penny on 01-25-2025 Anion gap [Moles/Vol] 12 mmol/L 11-26 [facility] BUN/creatinine ratioOrdered By: Raquel Penny on 01-25-2025 Urea nitrogen/Creatinine [Mass ratio] 16.0 mg/mg 05-03 [facility] Basic Metabolic Profile (BMP )on 01-25-2025 BUN/CRE 16.0 RATIO Normal 05-03 [facility] Comment on above: Performed By: #### L 500.2500 ####[facility] [address] [place], [place], [id number] Calcium [Mass/Vol] 9.4 mg/dL Normal 7.6-11.0 [facility] Comment on above: Performed By: #### L 500.2500 ####[facility] [address] [place], [address] Chloride [Moles/Vol] 101 mmol/L Normal 98-108 [facility] Comment on above: Performed By: #### L 500.2500 ####[facility] [address] [place], [address] CO2 [Moles/Vol] 25.9 mmol/L Normal 21.0-32.0 [facility] Comment on above: Performed By: #### L 500.2500 ####[facility] [address] [place], [address] Creatinine [Mass/Vol] 1.01 mg/dL Normal 0.70-1.20 [facility] Comment on above: Performed By: #### L 500.2500 ####[facility] [address] [place], [address] GAP 12 Normal 5-15 [facility] Comment on above: Performed By: #### L 500.2500 ####[facility] [address] [place], [address] GFR/1.73 sq M.predicted among non-blacks MDRD (S/P/Bld) [Vol rate/Area] 80 mL/min/{1.73_m2} Normal >60 [facility] Comment on above: Result Comment: mL/m in/1.73m2 CKD-EPI Creatinine Equation (2020) Performed By: #### L 500.2500 ####[facility] [address] [place], [address] Glucose [Mass/Vol] 118 mg/dL High 70-99 [facility] Comment on above: Performed By: #### L 500.2500 ####[facility] [address] [place], [address] Potassium [Moles/Vol] 4.6 mmol/L Normal 3.3-5.1 [facility] Comment on above: Performed By: #### L 500.2500 ####[facility] [address] [place], [place], [address] Sodium [Moles/Vol] 138 mmol/L Normal 133-145 [facility] Comment on above: Performed By: #### L 500.2500 ####[facility] [address] [place], [place], [address] Urea nitrogen [Mass/Vol] 16 mg/dL Normal 4-19 [facility] Comment on above: Performed By: #### L 500.2500 ####[facility] [address] [place], [place], [address] Carbon dioxide, total [Moles /volume] in Central venous bloodOrdered By: Raquel Penny on 01-25-2025 CO2 [Moles/Vol] 25.9 mmol/L 21.0-32.0 [facility] Chloride assayOrdered By: Zachariah Penny on 01-25-2025 Chloride [Moles/Vol] 101 mmol/L 98-108 [facility] Glomerular filtration rate ( GFR) estimation/1.73 sq m using serum, plasma, or whole bOrdered By: Raquel Penny on 01-25-2025 GFR/1.73 sq M.predicted among non-blacks MDRD (S/P/Bld) [Vol rate/Area] 80 mL/min/{1.73_m2} >60 [facility] Comment on above: mL/min/1.73m2 CKD-EP I Creatinine Equation (2020) Potassium measurement (mass/ volume)Ordered By: Raquel Penny on 01-25-2025 Potassium (Unsp spec) [Mass/Vol] 4.6 mmol/L 3.3-5.1 [facility] Serum creatinine measurement (mass/volume)Ordered By: Raquel Penny on 01-25-2025 Creatinine [Mass/Vol] 1.01 mg/dL 0.70-1.20 [facility] Serum glucose measurement (m ass/volume)Ordered By: Raquel Penny on 01-25-2025 Glucose [Mass/Vol] 118 mg/dL High 70-99 [facility] Serum or plasma calcium melva urement (mass/volume)Ordered By: Raquel Penny on 01-25-2025 Calcium [Mass/Vol] 9.4 mg/dL 7.6-11.0 [facility] Serum or plasma urea nitroge n measurement (mass/volume)Ordered By: Raquel Penny on 01-25-2025 Urea nitrogen [Mass/Vol] 16 mg/dL 4-19 [facility] Sodium levelOrdered By: Malia Penny on 01-25-2025 Sodium [Moles/Vol] 138 mmol/L 133-145 [facility] Cardiology Visit Reporton Cardiology Visit Report Normal [facility] Pulmonary Visit Reporton Pulmonary Visit Report Normal [facility] CNOVon 11-05-2024 CNOV Office Visit (FAMPWS ) -- MARY AGUIAR ([id number]) 1955 Date Time Provider Department 11/05/24 9:20 AM FARZANA KELLY During your visit today, we recorded the following information about you: Temperature Pulse Respiration Blood pressure 97.6 degrees 68/minute 18/minute 136/60 Weight 148.3 kg Farzana Kelly PA-C 11/05/2024 10:18 AM Signed Chief Complaint Patient presents with: Rash HPI Mary E Ferndale is a 68 year old male who presents here today for itching. Pruritus and Rash: - Onset a few days ago, with improvement today. - Described as "little welts" that come and go, appearing on the [...] left 04/12/2017 Cervicalgia 06/26/2017 Diabetic eye exam ([facility]) 03/29/2022 Last done 01/11/22 Dr Rafiq Avendano [...] Morbid obesity with BMI of 40.0-44.9, adult ([facility]) 07/06/2010 Palpitations 11/29/2021 Has had for many years Personal history of colonic polyps 2018 Plantar fasciitis 05/02/2018 Proteinuria due to type 2 diabetes mellitus ([facility]) 05/15/2021 Rosacea 03/11/2021 Sleep apnea 09/01/2007 Not using CPAP Stasis dermatitis 07/07/2011 Type 2 diabetes mellitus without complication, without long-term current use of insulin ([facility]) 02/11/2016 Uncontrolled type 2 diabetes mellitus with hyperglycemia ([facility]) 07/28/2021 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 Venous (peripheral) insufficiency 03/08/2005 Previous Surgical History PAST SURGICAL HISTORY Procedure Laterality Date CHOLECYSTECTOMY 2002 Cholecystectomy COLONOSCOPY FLX DX W/COLLJ SPEC WHEN PFRMD 11-21-07 COLONOSCOPY FLX DX W/COLLJ SPEC WHEN PFRMD 06/13/2018 [facility]--Repeat 5 years COLSC FLX W/RMVL OF TUMOR POLYP LESION SNARE TQ 04-23-13 DEBRIDEMENT SUBCUTANEOUS TISSUE 20 SQ CM/< Left 06/27/15 Debridement UIQ left breast infected glenny cyst ENDOVENOUS LASER, 1ST VEIN 11/16/2014 [facility] - see scanned documents ENDOVENOUS LASER, 1ST VEIN 06/05/2015 [facility] - right great saphenous vein NEUROPLASTY [...] by mouth once daily. Take with food. [place]-3 Fatty Acids-Vitamin E (FISH OIL) 1,000 mg cap Take 1 capsule by mouth once daily. MULTI-VITAMIN ORAL Take by (more content not included)... Normal [facility] Chest without Contraston Chest without Contrast Normal [facility] 6 Minute Walk Teston 025 6 Minute Walk Test Normal [facility] Cardiovascular stress test r eportOrdered By: Melinda Cifuentes on 10-19-2024 Study report [facility] Cardiovascular Services [address] [place] [address] MR#: [id number] Acct: [id number] Name: MARY AGUIAR Rep #: [id number] : 1955 68 From: Melinda Cifuentes MD Primary Care: Dr. Rick Sow MD Stat us: REG CLI Referring Dr: Melinda Cifuentes MD [...] of 63%. This note was generated with Grono.netation software. It may contain incorrectwords, spelling, and punctuation that were not noted in checking the note beforesigning. 10/19/24 0907 Date _ Melinda Cifuentes MD CC: Dr. Melnida Cifuentes MD; Dr. Rick Sow MD ~ Date Dictated: 10/19/24902 Date Transcribed: 10/19/24902 Bookstore Manager: LETTY Signed [facility] Work Phone: Stress Reporton 10-19-2024 Stress Report Normal [facility] CNOVon 10-05-2024 CNOV Office Visit (FAMPWS ) -- MARY AGUIAR ([id number]) 1955 M Date Time Provider Department 10/05/24 11:40 [facility], we recorded [...] able to breathe well. - Follow-up with flat finisher; recommended nocturnal oxygen monitoring. - Denies current dyspnea. Cardiac Evaluation: - Recent cardiology consultation; staff development educator attributed cardiac symptoms to pneumonia. - Nuclear [...] left 04/12/2017 Cervicalgia 06/26/2017 Diabetic eye exam ([facility]) 03/29/2022 Last done 01/11/22 Dr Rafiq Avendano [...] Morbid obesity with BMI of 40.0-44.9, adult ([facility]) 07/06/2010 Palpitations 11/29/2021 Has had for many years Personal history of colonic polyps 2018 Plantar fasciitis 05/02/2018 Proteinuria due to type 2 diabetes mellitus ([facility]) ([facility]) 05/15/2021 Rosacea 03/11/2021 Sleep apnea 09/01/2007 Not using CPAP Stasis dermatitis 07/07/2011 Type 2 diabetes mellitus without complication, without long-term current use of insulin ([facility]) 02/11/2016 Uncontrolled type 2 diabetes mellitus with hyperglycemia ([facility]) 07/28/2021 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 (more content not included)... Normal [facility] Cardiology Visit Reporton Cardiology Visit Report Normal [facility] Pulmonary Visit Reporton Pulmonary Visit Report Normal [facility] ALBUMIN/CREATININE RATIO, UR INEon 09-03-2024 Albumin DL <= 20 mg/L (U) [Mass/Vol] mg/dL Normal [facility] Comment on above: Order Comment: Speci men Type: URINE SPECIMENOrdering Facility: [facility] Address: [address] [place] [address] Performed By: #### U ACR ####[facility] LABCLIA [id number] [place] [address] [place] Albumin/Creatinine (U) [Mass ratio] <15 Normal <30 [facility] Comment on above: Order Comment: Speci men Type: URINE SPECIMENOrdering Facility: [facility] Address: [address] [place] [address] Result Comment: Adul t Male and Female Nephrotic Criteria: <30 mg/g is considered normal to mildly increased 30-300 mg/g is considered moderately increased >300 mg/g is considered severely increased KDIGO. (2013). KDIGO 2012 Clinical Practice Guideline for the Evaluation and Management of Chronic Kidney Disease. Official Journal of the International Society of Nephrology, 3(1), 1-150. Performed By: #### U ACR ####[facility] LABCLIA [id number] [place] [address] [place] Creatinine (U) [Mass/Vol] 79.2 mg/dL Normal 20.0-300.0 [facility] Comment on above: Order Comment: Speci men Type: URINE SPECIMENOrdering Facility: [facility] Address: [address] [place] [address] Performed By: #### U ACR ####[facility] LABCLIA [id number] [place] [address] [place] Basic metabolic 2000 panelon 09-03-2024 Anion gap [Moles/Vol] 11 mmol/L Normal 8-15 [facility] Comment on above: Order Comment: Speci men Type: BLOOD SPECIMENOrdering Facility: [facility] Address: [address] [place] [address] Performed By: #### 2 4321-2, LIPNF ####[facility] LABCLIA [id number] [place] [address] [place] Calcium [Mass/Vol] 9.2 mg/dL Normal 8.5-10.2 [facility] Comment on above: Order Comment: Speci men Type: BLOOD SPECIMENOrdering Facility: [facility] Address: [address] [place] [address] Performed By: #### 2 4321-2, LIPNF ####[facility] LABCLIA [id number] [place] [id number] [place] Chloride [Moles/Vol] 100 mmol/L Normal 98-107 [facility] Comment on above: Order Comment: Speci men Type: BLOOD SPECIMENOrdering Facility: [facility] Address: [address] [place] [address] Performed By: #### 2 4321-2, LIPNF ####[facility] LABCLIA [id number] [address] [address] [place] CO2 [Moles/Vol] 28 mmol/L Normal 22-30 [facility] Comment on above: Order Comment: Speci men Type: BLOOD SPECIMENOrdering Facility: [facility] Address: [address] [place] [address] Performed By: #### 2 4321-2, LIPNF ####[facility] LABIA [id number] [place] [address] [place] Creatinine [Mass/Vol] 0.94 mg/dL Normal 0.73-1.22 [facility] Comment on above: Order Comment: Speci men Type: BLOOD SPECIMENOrdering Facility: [facility] Address: [address] [place] [address] Performed By: #### 2 4321-2, LIPNF ####[facility] LABIA [id number] [place] [address] [place] Creatinine and Glomerular filtration rate.predicted panel (S/P/Bld) 87 mL/min/1.73m??? Normal >=60 [facility] Comment on above: Order Comment: Speci men Type: BLOOD SPECIMENOrdering Facility: [facility] Address: [address] [place] [address] Result Comment: Angeline mated Glomerular Filtration Rate [...] reflect actual GFR. Performed By: #### 2 4321-2, LIPNF ####[facility] LABCLIA [id number] [place] [address] [place] Glucose [Mass/Vol] 142 mg/dL High 74-99 [facility] Comment on above: Order Comment: Speci men Type: BLOOD SPECIMENOrdering Facility: [facility] Address: [address] [place] [address] Result Comment: The [place] Diabetes Association (ADA) provides guidance for cutoff [...] Standards of Medical Care in Diabetes 2016, [place] Diabetes Association. Diabetes Care. 2016.39(Suppl 1). Performed By: #### 2 4321-2, LIPNF ####[facility] LABCLIA [id number] [place] [address] [place] Potassium [Moles/Vol] 4.3 mmol/L Normal 3.7-5.1 [facility] Comment on above: Order Comment: Speci men Type: BLOOD SPECIMENOrdering Facility: [facility] Address: [address] [place] [address] Performed By: #### 2 4321-2, LIPNF ####[facility] LABCLIA [id number] [place] [address] [place] Sodium [Moles/Vol] 139 mmol/L Normal 136-144 [facility] Comment on above: Order Comment: Speci men Type: BLOOD SPECIMENOrdering Facility: [facility] Address: [address] [place] [address] Performed By: #### 2 4321-2, LIPNF ####[facility] LABCLIA [id number] [place] [address] [place] Urea nitrogen [Mass/Vol] 10 mg/dL Normal 9-24 [facility] Comment on above: Order Comment: Delia mccoy Type: BLOOD SPECIMENOrdering Facility: [facility] Address: [address] [place] [address] Performed By: #### 2 4321-2, LIPNF ####[facility] LABIA [id number] [place] [address] [place] HbA1c (Bld)on 09-03-2024 Average glucose Estimated from glycated hemoglobin (Bld) [Mass/Vol] 157 mg/dL Normal [facility] Comment on above: Order Comment: Delia mccoy Type: BLOOD SPECIMENOrdering Facility: [facility] Address: [address] [place] [address] Result Comment: eAG: (Estimated average glucose) is a calculated value from HgbA1c and is career services representative of the average blood glucose level in the last 2-3 month period. Performed By: #### 5 5454-3 ####[facility] LABIA [id number] [place] [address] [place] HbA1c (Bld) [Mass fraction] 7.1 % High 4.3-5.6 [facility] Comment on above: Order Comment: Delia mccoy Type: BLOOD SPECIMENOrdering Facility: [facility] Address: [address] [place] [address] Result Comment: Amer ican Diabetes Association guidelines indicate that patients with HgbA1c in the range 5.7-6.4% are at increased risk for development of diabetes, and intervention by lifestyle modification may be beneficial. HgbA1c greater or equal to 6.5% is considered diagnostic of diabetes. Performed By: #### 5 5454-3 ####[facility] LABIA [id number] [place] [address] [place] LIPID PANEL, NONFASTINGon Cholesterol [Mass/Vol] 119 mg/dL Normal <200 [facility] Comment on above: Order Comment: Speci men Type: BLOOD SPECIMENOrdering Facility: [facility] Address: [address] [place] [address] Result Comment: <200 mg/dL, Desirable 200-239 mg/dL, Borderline high >239 mg/dL, High Performed By: #### 2 4321-2, LIPNF ####[facility] LABCLIA [id number] [place] [address] [place] HDL CHOLESTEROL, NF 39 mg/dL Low >39 [facility] Comment on above: Order Comment: Speci men Type: BLOOD SPECIMENOrdering Facility: [facility] Address: [address] [place] [address] Result Comment: 40-5 9 mg/dL, Acceptable >59 mg/dL, High: Negative risk factor for coronary heart disease <40 mg/dL, Low: Positive risk factor for coronary heart disease Performed By: #### 2 4321-2, LIPNF ####[facility] LABCLIA [id number] [place] [address] [place] LDL CHOLESTEROL, NF 43 mg/dL Normal <100 [facility] Comment on above: Order Comment: Speci men Type: BLOOD SPECIMENOrdering Facility: [facility] Address: [address] [place] [address] Result Comment: <100 mg/dL, Optimal 100-129 mg/dL, Near optimal/above optimal 130-159 mg/dL, Borderline high 160-189 mg/dL, High >189 mg/dL, Very high Secondary prevention optimal LDL Cholesterol levels are recommended to be < 70 mg/dL Performed By: #### 2 4321-2, LIPNF ####[facility] LABCLIA [id number] [place] [address] [place] LDL/HDL RATIO, NF 1.10 mg/dL Normal <2.54 [facility] Comment on above: Order Comment: Speci men Type: BLOOD SPECIMENOrdering Facility: [facility] Address: [address] [place] [address] Result Comment: Refe janellece: 1. National Cholesterol Education Program ATP III Guideline At-A-Glance Quick Desk Reference: National Heart, Lung, and Blood [place]. National Institutes of Health. 2001: NIH Publication No. 01-3305. 2. An International Atherosclerosis Society position paper: global recommendations for the management of dyslipidemia: executive summary, Atherosclerosis. 2014: 232(2):410-413. Performed By: #### 2 4321-2, LIPNF ####[facility] LABCLIA [id number] [place] [address] [place] NON HDL CHOL, NF 80 mg/dL Normal <130 [facility] Comment on above: Order Comment: Delia mccoy Type: BLOOD SPECIMENOrdering Facility: [facility] Address: [address] [place] [address] Result Comment: <130 mg/dL, Optimal 130-159 mg/dL, Near optimal/above optimal 160-189 mg/dL, Borderline high 190-219 mg/dL, High >219 mg/dL, Very high Secondary prevention optimal non HDL Cholesterol levels are recommended to be <100 mg/dL Performed By: #### 2 4321-2, LIPNF ####[facility] LABIA [id number] [place] [address] [place] T CHOL/HDL RATIO NF 3.05 mg/dL Normal <5.10 [facility] Comment on above: Order Comment: Delia mccoy Type: BLOOD SPECIMENOrdering Facility: [facility] Address: [address] [place] [address] Performed By: #### 2 4321-2, LIPNF ####[facility] LABIA [id number] [place] [address] [place] TRIGLYCERIDES, NF 187 mg/dL High <150 [facility] Comment on above: Order Comment: Delia mccoy Type: BLOOD SPECIMENOrdering Facility: [facility] Address: [address] [place] [address] Result Comment: <150 mg/dL, Normal 150-199 mg/dL, Borderline high 200-499 mg/dL, High >499 mg/dL, Very high Performed By: #### 2 4321-2, LIPNF ####[facility] LABCLIA [id number] [place] [address] [place] VLDL CHOLESTEROL, NF 37 mg/dL High <30 [facility] Comment on above: Order Comment: Speci men Type: BLOOD SPECIMENOrdering Facility: [facility] Address: [address] [place] [address] Performed By: #### 2 4321-2, LIPNF ####[facility] LABCLIA [id number] [place] [address] [place] Basic metabolic 2000 panelon 08-27-2024 Anion gap [Moles/Vol] 12 mmol/L Normal 8-15 [facility] Comment on above: Order Comment: Speci men Type: BLOOD SPECIMEN [facility] Address: [address] [place] [address] Performed By: #### 2 4321-2 #### [facility] CLIA [id number] [address] [place] [address] [place] Calcium [Mass/Vol] 9.4 mg/dL Normal 8.5-10.2 [facility] Comment on above: Order Comment: Speci men Type: BLOOD SPECIMEN [facility] Address: [address] [place] [address] Performed By: #### 2 4321-2 #### [facility] CLIA [id number] [address] [place] [address] [place] Chloride [Moles/Vol] 94 mmol/L Low 98-107 [facility] Comment on above: Order Comment: Speci men Type: BLOOD SPECIMEN [facility] Address: [address] [place] [address] Performed By: #### 2 4321-2 #### [facility] CLIA [id number] [address] [place] [address] [place] CO2 [Moles/Vol] 28 mmol/L Normal 22-30 [facility] Comment on above: Order Comment: Delia mccoy Type: BLOOD SPECIMEN [facility] Address: [address] [place] [address] Performed By: #### 2 4321-2 #### [facility] CLIA [id number] [address] [place] Creatinine [Mass/Vol] 1.04 mg/dL Normal 0.73-1.22 [facility] Comment on above: Order Comment: Delia men Type: BLOOD SPECIMEN [facility] Address: [address] [place] [address] Performed By: #### 2 4321-2 #### [facility] CLIA [id number] [address] Creatinine and Glomerular filtration rate.predicted panel (S/P/Bld) 77 mL/min/1.73m??? Normal >=60 [facility] Comment on above: Order Comment: Delia mccoy Type: BLOOD SPECIMEN [facility] Address: [address] [place] [address] Result Comment: Angeline mated Glomerular Filtration Rate [...] GFR. Performed By: #### 2 4321-2 #### [facility] CLIA [id number] [address] [place] Glucose [Mass/Vol] 78 mg/dL Normal 74-99 [facility] Comment on above: Order Comment: Delia nadine Type: BLOOD SPECIMEN [facility] Address: [address] [place] [address] Result Comment: The [place] Diabetes Association (ADA) provides guidance for cutoff [...] Standards of Medical Care in Diabetes 2016, [place] Diabetes Association. Diabetes Care. 2016.39(Suppl 1). Performed By: #### 2 4321-2 #### [facility] CLIA [id number] [address] [place] Potassium [Moles/Vol] 4.0 mmol/L Normal 3.7-5.1 [facility] Comment on above: Order Comment: Delia mccoy Type: BLOOD SPECIMEN [facility] Address: [address] [place] [address] Performed By: #### 2 4321-2 #### [facility] CLIA [id number] [address] [place] [address] [place] [facility] Sodium [Moles/Vol] 134 mmol/L Low 136-144 [facility] Comment on above: Order Comment: Delia mccoy Type: BLOOD SPECIMEN [facility] Address: [address] [place] [address] Performed By: #### 2 4321-2 #### [facility] CLIA [id number] [address] STATES [facility] Urea nitrogen [Mass/Vol] 16 mg/dL Normal 9-24 [facility] Comment on above: Order Comment: Delia mccoy Type: BLOOD SPECIMEN [facility] Address: [address] [place] [address] Performed By: #### 2 4321-2 #### [facility] CLIA [id number] [address] [place] CNOVon 08-27-2024 CNOV Office Visit (FAMPWS ) -- MARY AGUIAR ([id number]) 1955 M Date Time Provider Department 08/27/24 [...] for hospital F/u. Patient was admitted to [facility] on 08/15/24 for influenza A. Was [...] Morbid obesity with BMI of 40.0-44.9, adult ([facility]) 07/06/2010 Palpitations 11/29/2021 Has had for many years Personal history of colonic polyps 2018 Plantar fasciitis 05/02/2018 Proteinuria due to type 2 diabetes mellitus ([facility]) ([facility]) 05/15/2021 Rosacea 03/11/2021 Sleep apnea 09/01/2007 Not using CPAP Stasis dermatitis 07/07/2011 Type 2 diabetes mellitus without complication, without long-term current use of insulin ([facility]) 02/11/2016 Uncontrolled type 2 diabetes mellitus with hyperglycemia ([facility]) 07/28/2021 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 Venous (peripheral) insufficiency 03/08/2005 Previous Surgical History PAST SURGICAL HISTORY Procedure Laterality Date CHOLECYSTECTOMY 2002 Cholecystectomy COLONOSCOPY FLX DX W/COLLJ SPEC WHEN PFRMD 11-21-07 COLONOSCOPY FLX DX W/COLLJ SPEC WHEN PFRMD 06/13/2018 [facility]-Michael De Anda--Repeat 5 years COLSC FLX W/RMVL OF TUMOR POLYP LESION SNARE TQ 04-23-13 DEBRIDEMENT SUBCUTANEOUS TISSUE 20 SQ CM/< Left 06/27/15 Debridement UIQ left breast infected glenny cyst ENDOVENOUS LASER, 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 glimepirid (more content not included)... Normal [facility] Bedside Glucoseon 08-19-2024 FINGERSTICK GLU 263 mg/dL High 74-106 [facility] Comment on above: Result Comment: USMAN GEMENT OF PATIENT CARE PER NURSING PROTOCOL Performed By: #### L 501.080 ####[facility] [address] [place], [address] FINGERSTICK GLU 199 mg/dL High -106 [facility] Comment on above: Result Comment: USMAN GEMENT OF PATIENT CARE PER NURSING PROTOCOL Performed By: #### L 501.080 ####[facility] [address] [place], [address] Discharge Instructionon Discharge Instruction Normal [facility] deOrdered By: Mack An on 08-19-2024 [facility] 263 mg/dL High 74-106 [facility] Comment on above: MANAGEMENT OF PATIEN T CARE PER NURSING PROTOCOL Glucose [Mass/Vol] 263 mg/dL High 74-106 [facility] Comment on above: MANAGEMENT OF PATIEN T CARE PER NURSING PROTOCOL Respiratory Cultureon 2024 RESPC Mixed normal respira tory steve. No Streptococcus pneumoniae, beta-hemolytic Streptococcus or Staphylococcus aureus isolated. Normal [facility] Comment on above: Performed By: #### M 100.2000, M100.2400 ####[facility] [address] [place], [address] Absolute lymphocyte countOrd ered By: Mack An on 08-18-2024 Lymphocytes Auto (Unsp spec) [#/Vol] 1.41 10*3/uL 0.83-4.51 [facility] Absolute neutrophil countOrd ered By: Mack An on 08-18-2024 Neutrophils (Bld) [#/Vol] 9.1 10*3/uL High 2.0-7.7 [facility] Automated lymphocyte count a s percentage of total leukocytesOrdered By: Mack An on 08-18-2024 Lymphocytes/100 WBC Auto (Unsp spec) 12.8 % Low 19-41 [facility] Basic Metabolic Profile (BMP )on 08-18-2024 BUN/CRE 19.0 RATIO Normal 10-20 [facility] Comment on above: Performed By: #### L 100.0100, L500.2500 ####[facility] [address] [place], [address] CA,Total 7.8 mg/dL Low 8.5-10.1 [facility] Comment on above: Performed By: #### L 100.0100, L500.2500 ####[facility] [address] [place], [address] Chloride [Moles/Vol] 100 mmol/L Normal 98-107 [facility] Comment on above: Performed By: #### L 100.0100, L500.2500 ####[facility] [address] [place], [address] CO2 [Moles/Vol] 31.0 mmol/L Normal 21.0-32.0 [facility] Comment on above: Performed By: #### L 100.0100, L500.2500 ####[facility] [address] [place], [address] Creatinine [Mass/Vol] 0.95 mg/dL Normal 0.70-1.30 [facility] Comment on above: Result Comment: The validity of the calculated GFR GFRAA in patients over70 years has not been determined. Clinical correlation isessential. Performed By: #### L 100.0100, L500.2500 ####[facility] [address] [place], [address] ECRCL 113.99 ml/min Normal [facility] Comment on above: Performed By: #### L 100.0100, L500.2500 ####[facility] [address] [place], [address] EST GFR - AA 101 mL/min Normal >60 [facility] Comment on above: Result Comment: Afri can [place] GFR Calc Performed By: #### L 100.0100, L500.2500 ####[facility] [address] [place], [address] GAP 4 Low 5-15 [facility] Comment on above: Performed By: #### L 100.0100, L500.2500 ####[facility] [address] [place], [address] GFR/1.73 sq M.predicted among non-blacks MDRD (S/P/Bld) [Vol rate/Area] 84 mL/min/{1.73_m2} Normal >60 [facility] Comment on above: Result Comment: Non- GFR Calc Performed By: #### L 100.0100, L500.2500 ####[facility] [address] [place], [address] Glucose [Mass/Vol] 118 mg/dL High 74-106 [facility] Comment on above: Result Comment: Fast ing Glucose result from 100 to 125 mg/dLsuggests IMPAIRED HOMEOSTASIS per A.D.A. criteria. Performed By: #### L 100.0100, L500.2500 ####[facility] [address] [place], [address] Potassium [Moles/Vol] 3.7 mmol/L Normal 3.5-5.1 [facility] Comment on above: Performed By: #### L 100.0100, L500.2500 ####[facility] [address] [place], [address] Sodium [Moles/Vol] 136 mmol/L Normal 136-145 [facility] Comment on above: Performed By: #### L 100.0100, L500.2500 ####[facility] [address] [place], [address] Urea nitrogen [Mass/Vol] 18 mg/dL Normal 7-18 [facility] Comment on above: Performed By: #### L 100.0100, L500.2500 ####[facility] [address] [place], [address] Basophil percentageOrdered B y: Mack An on 08-18-2024 Basophils/100 WBC (Bld) 0.2 % 0-1 [facility] Bedside Glucoseon 08-18-2024 FINGERSTICK GLU 254 mg/dL High 74-106 [facility] Comment on above: Result Comment: USMAN GEMENT OF PATIENT CARE PER NURSING PROTOCOL Performed By: #### L 501.080 ####[facility] [address] [place], [address] FINGERSTICK GLU 215 mg/dL High 74-106 [facility] Comment on above: Result Comment: USMAN GEMENT OF PATIENT CARE PER NURSING PROTOCOL Performed By: #### L 501.080 ####[facility] [address] [place], [address] FINGERSTICK GLU 170 mg/dL High -106 [facility] Comment on above: Result Comment: USMAN GEMENT OF PATIENT CARE PER NURSING PROTOCOL Performed By: #### L 501.080 ####[facility] [address] [place], [address] FINGERSTICK GLU 122 mg/dL High 74-106 [facility] Comment on above: Result Comment: USMAN CERVANTES OF PATIENT CARE PER NURSING PROTOCOL Performed By: #### L 501.080 ####[facility] [address] [place], [address] Blood urea nitrogen (BUN)/cr eatinine ratioOrdered By: Mack An on 08-18-2024 Urea nitrogen/Creatinine [Mass ratio] 19.0 mg/mg 10- [facility] CBC W/Diff, Automatedon Absolute Lymph 1.41 X10 3/uL Normal 0.83-4.51 [facility] Comment on above: Performed By: #### L 100.0100, L500.2500 ####[facility] [address] [place], [address] Absolute Neut 9.1 X10 3/uL High 2.0-7.7 [facility] Comment on above: Performed By: #### L 100.0100, L500.2500 ####[facility] [address] [place], [address] Basophils/100 WBC (Bld) 0.2 % Normal 0-1 [facility] Comment on above: Performed By: #### L 100.0100, L500.2500 ####[facility] [address] [place], [address] Eosinophils/100 WBC (Bld) 0.0 % Normal 0-5 [facility] Comment on above: Performed By: #### L 100.0100, L500.2500 ####[facility] [address] [place], [address] Erythrocyte distribution width (RBC) [Ratio] 13.2 % Normal 11.6-14.6 [facility] Comment on above: Performed By: #### L 100.0100, L500.2500 ####[facility] [address] [place], [address] Hematocrit (Bld) [Volume fraction] 44.9 % Normal 40-54 [facility] Comment on above: Performed By: #### L 100.0100, L500.2500 ####[facility] [address] [place], [address] Hemoglobin (Bld) [Mass/Vol] 14.1 g/dL Normal 13.0-16.5 [facility] Comment on above: Performed By: #### L 100.0100, L500.2500 ####[facility] [address] [place], [address] IG% 0.600 Normal 0.0-0.9 [facility] Comment on above: Result Comment: IG% - Immature Granulocytes (promyelocytes, myelocytes andmetamyelocytes) > 1% indicates that a LEFT SHIFT is Present. Performed By: #### L 100.0100, L500.2500 ####[facility] [address] [place], [address] Lymphocytes/100 WBC (Bld) 12.8 % Low 19-41 [facility] Comment on above: Performed By: #### L 100.0100, L500.2500 ####[facility] [address] [place], [address] MCH (RBC) [Entitic mass] 27.8 pg Normal 27.0-32.0 [facility] Comment on above: Performed By: #### L 100.0100, L500.2500 ####[facility] [address] [place], [address] MCHC (RBC) [Mass/Vol] 31.4 g/dL Low 32-36 [facility] Comment on above: Performed By: #### L 100.0100, L500.2500 ####[facility] [address] [place], [address] MCV (RBC) [Entitic vol] 88.4 fL Normal 80-94 [facility] Comment on above: Performed By: #### L 100.0100, L500.2500 ####[facility] [address] [place], [address] Monocytes/100 WBC (Bld) 4.1 % Normal 0-10 [facility] Comment on above: Performed By: #### L 100.0100, L500.2500 ####[facility] [address] [place], [address] Neutrophils/100 WBC (Bld) 82.3 % High 47-70 [facility] Comment on above: Performed By: #### L 100.0100, L500.2500 ####[facility] [address] [place], [address] Nucleated RBC (Bld) [#/Vol] 0 10*3/uL Normal 0-5 [facility] Comment on above: Performed By: #### L 100.0100, L500.2500 ####[facility] [address] [place], [address] Platelet mean volume (Bld) [Entitic vol] 10.5 fL Normal 6.2-12.0 [facility] Comment on above: Performed By: #### L 100.0100, L500.2500 ####[facility] [address] [place], [address] Platelets (Bld) [#/Vol] 220 10*3/uL Normal 150-450 [facility] Comment on above: Performed By: #### L 100.0100, L500.2500 ####[facility] [address] [place], [address] RBC (Bld) [#/Vol] 5.08 10*6/uL Normal 4.6-6.2 [facility] Comment on above: Performed By: #### L 100.0100, L500.2500 ####[facility] [address] [place], [address] RDW SD 42.3 fl Normal 35.1-43.9 [facility] Comment on above: Performed By: #### L 100.0100, L500.2500 ####[facility] [address] [place], [address] WBC (Bld) [#/Vol] 11.0 10*3/uL Normal 4.4-11.0 [facility] Comment on above: Performed By: #### L 100.0100, L500.2500 ####[facility] [address] [place], [address] Carbon dioxide measurementOr dered By: Mack An on 08-18-2024 CO2 [Moles/Vol] 31.0 mmol/L 21.0-32.0 [facility] Chloride measurementOrdered By: Mack An on 08-18-2024 Chloride [Moles/Vol] 100 mmol/L 98-107 [facility] Eosinophil percentageOrdered By: Mack An on 08-18-2024 Eosinophils/100 WBC (Bld) 0.0 % 0-5 [facility] Erythrocyte distribution wid th (RBC) [Ratio]Ordered By: Makc An on 08-18-2024 Erythrocyte distribution width (RBC) [Entitic vol] 42.3 fL 35.1-43.9 [facility] Erythrocyte distribution wid th ratioOrdered By: Mack An on 08-18-2024 Erythrocyte distribution width (RBC) [Ratio] 13.2 % 11.6-14.6 [facility] Erythrocyte distribution wid th standard deviationOrdered By: Mack An on 08-18-2024 Erythrocyte distribution width (RBC) [Ratio] 42.3 fl 35.1-43.9 [facility] Estimated glomerular filtrat ion rate (GFR) AmericanOrdered By: Mack An on 08-18-2024 Estimated GFR (MDRD) Amer 101 mL/min >60 [facility] Comment on above: GFR Calc Estimation of creatinine josephine aranceOrdered By: Mack An on 08-18-2024 Estimated Creatinine Clearance Calc 113.99 ml/min [facility] Glomerular filtration rate ( GFR) estimationOrdered By: Mack An on 08-18-2024 Estimated GFR (MDRD) Non-Af Amer 84 mL/min >60 [facility] Comment on above: Non- GFR Calc GFR/1.73 sq M.predicted among non-blacks MDRD (S/P/Bld) [Vol rate/Area] 84 mL/min/{1.73_m2} >60 [facility] Comment on above: Non- GFR Calc Glucose measurementOrdered B y: Mack An on 08-18-2024 Glucose [Mass/Vol] 118 mg/dL High 74-106 [facility] Comment on above: Fasting Glucose resu lt from 100 to 125 mg/dL suggests IMPAIRED HOMEOSTASIS per A.D.A. criteria. Hematocrit Auto (Bld) [Volum e fraction]Ordered By: Mack An on 08-18-2024 Hematocrit (Bld) [Volume fraction] 44.9 % 40-54 [facility] Hemoglobin measurementOrdere d By: Mack An on 08-18-2024 Hemoglobin (Bld) [Mass/Vol] 14.1 g/dL 13.0-16.5 [facility] Immature granulocytes/100 WB C Auto (Bld)Ordered By: Mack An on 08-18-2024 Immature granulocytes/100 WBC (Bld) 0.600 % 0.0-0.9 [facility] Comment on above: IG% - Immature Granu locytes (promyelocytes, myelocytes and metamyelocytes) > 1% indicates that a LEFT SHIFT is Present. Lymphocytes Auto (Unsp spec) [#/Vol]Ordered By: Mack An on 08-18-2024 Lymphocytes (Bld) [#/Vol] 1.41 10*3/uL 0.83-4.51 [facility] Lymphocytes/100 WBC Auto (Un sp spec)Ordered By: Mack An on 08-18-2024 Lymphocytes/100 WBC (Bld) 12.8 % Low 19-41 [facility] MCV (mean corpuscular volume ) determinationOrdered By: Mack An on 08-18-2024 MCV (RBC) [Entitic vol] 88.4 fL 80-94 [facility] Mean corpuscular hemoglobin (MCH) determinationOrdered By: Mack An on 08-18-2024 MCH (RBC) [Entitic mass] 27.8 pg 27.0-32.0 [facility] Mean corpuscular hemoglobin concentration (MCHC) determinationOrdered By: Mack An on 08-18-2024 MCHC (RBC) [Mass/Vol] 31.4 g/dL Low 32-36 [facility] Mean platelet volume determi nationOrdered By: Mack An on 08-18-2024 Platelet mean volume (Bld) [Entitic vol] 10.5 fL 6.2-12.0 [facility] Monocyte percentageOrdered B y: Mack An on 08-18-2024 Monocytes/100 WBC (Bld) 4.1 % 0-10 [facility] Neutrophil percentageOrdered By: Mack An on 08-18-2024 Neutrophils/100 WBC (Bld) 82.3 % High 47-70 [facility] Nucleated red blood cell per centageOrdered By: Mack An on 08-18-2024 Nucleated RBC/100 WBC (Bld) [Ratio] 0 % 0-5 [facility] Platelet countOrdered By: Caitlin An on 08-18-2024 Platelets (Bld) [#/Vol] 220 10*3/uL 150-450 [facility] Potassium measurementOrdered By: Mack An on 08-18-2024 Potassium [Moles/Vol] 3.7 mmol/L 3.5-5.1 [facility] RBC Auto (Bld) [#/Vol]Ordere d By: Mack An on 08-18-2024 RBC (Bld) [#/Vol] 5.08 10*6/uL 4.6-6.2 [facility] Serum anion gap measurementO rdered By: Mack An on 08-18-2024 Anion gap [Moles/Vol] 4 mmol/L Low 5-15 [facility] Serum or plasma calcium melva urement (mass/volume)Ordered By: Mack An on 08-18-2024 Calcium [Mass/Vol] 7.8 mg/dL Low 8.5-10.1 [facility] Serum or plasma creatinine m easurement (mass/volume)Ordered By: Mack nA on 08-18-2024 Creatinine [Mass/Vol] 0.95 mg/dL 0.70-1.30 [facility] Comment on above: The validity of the calculated GFR & GFRAA in patients over 70 years has not been determined. Clinical correlation is essential. Serum or plasma urea nitroge n measurement (mass/volume)Ordered By: Mack An on 08-18-2024 Urea nitrogen [Mass/Vol] 18 mg/dL 7-18 [facility] Sodium levelOrdered By: Shawn An on 08-18-2024 Sodium [Moles/Vol] 136 mmol/L 136-145 [facility] White blood cell (WBC) count Ordered By: Mack An on 08-18-2024 WBC (Bld) [#/Vol] 11.0 10*3/uL 4.4-11.0 [facility] Basic Metabolic Profile (BMP )on 08-17-2024 BUN/CRE 14.0 RATIO Normal 10-20 [facility] Comment on above: Performed By: #### L 500.2500, L100.0100 ####[facility] [address] [place], [address] CA,Total 7.4 mg/dL Low 8.5-10.1 [facility] Comment on above: Performed By: #### L 500.2500, L100.0100 ####[facility] [address] [place], [address] Chloride [Moles/Vol] 102 mmol/L Normal 98-107 [facility] Comment on above: Performed By: #### L 500.2500, L100.0100 ####[facility] [address] [place], [address] CO2 [Moles/Vol] 29.0 mmol/L Normal 21.0-32.0 [facility] Comment on above: Performed By: #### L 500.2500, L100.0100 ####[facility] [address] [place], [address] Creatinine [Mass/Vol] 1.14 mg/dL Normal 0.70-1.30 [facility] Comment on above: Result Comment: The validity of the calculated GFR GFRAA in patients over70 years has not been determined. Clinical correlation isessential. Performed By: #### L 500.2500, L100.0100 ####[facility] [address] [place], [address] ECRCL 94.99 ml/min Normal [facility] Comment on above: Performed By: #### L 500.2500, L100.0100 ####[facility] [address] [place], [address] EST GFR - AA 82 mL/min Normal >60 [facility] Comment on above: Result Comment: Afri can Grenadian GFR Calc Performed By: #### L 500.2500, L100.0100 ####[facility] [address] [place], [address] GAP 5 Normal 5-15 [facility] Comment on above: Performed By: #### L 500.2500, L100.0100 ####[facility] [address] [place], [address] GFR/1.73 sq M.predicted among non-blacks MDRD (S/P/Bld) [Vol rate/Area] 67 mL/min/{1.73_m2} Normal >60 [facility] Comment on above: Result Comment: Non- GFR Calc Performed By: #### L 500.2500, L100.0100 ####[facility] [address] [place], [address] Glucose [Mass/Vol] 219 mg/dL High 74-106 [facility] Comment on above: Result Comment: Gluc ose result greater than or equal to 200 mg/dLsuggests DIABETES MELLITUS per A.D.A. criteria. Performed By: #### L 500.2500, L100.0100 ####[facility] [address] [place], [address] Potassium [Moles/Vol] 4.0 mmol/L Normal 3.5-5.1 [facility] Comment on above: Performed By: #### L 500.2500, L100.0100 ####[facility] [address] [place], [address] Sodium [Moles/Vol] 136 mmol/L Normal 136-145 [facility] Comment on above: Performed By: #### L 500.2500, L100.0100 ####[facility] [address] [place], [address] Urea nitrogen [Mass/Vol] 16 mg/dL Normal 7-18 [facility] Comment on above: Performed By: #### L 500.2500, L100.0100 ####[facility] [address] [place], [address] Bedside Glucoseon 08-17-2024 FINGERSTICK GLU 267 mg/dL High 74-106 [facility] Comment on above: Result Comment: USMAN GEMENT OF PATIENT CARE PER NURSING PROTOCOL Performed By: #### L 501.080 ####[facility] [address] [place], [address] FINGERSTICK GLU 220 mg/dL High 74-106 [facility] Comment on above: Result Comment: USMAN GEMENT OF PATIENT CARE PER NURSING PROTOCOL Performed By: #### L 501.080 ####[facility] [address] [place], [address] FINGERSTICK GLU 236 mg/dL High 74-106 [facility] Comment on above: Result Comment: USMAN GEMENT OF PATIENT CARE PER NURSING PROTOCOL Performed By: #### L 501.080 ####[facility] [address] [place], [address] FINGERSTICK GLU 208 mg/dL High 74-106 [facility] Comment on above: Result Comment: USMAN CERVANTES OF PATIENT CARE PER NURSING PROTOCOL Performed By: #### L 501.080 ####[facility] [address] [place], [address] CBC W/Diff, Automatedon 02-0 -2024 Absolute Lymph 0.45 X10 3/uL Low 0.83-4.51 [facility] Comment on above: Performed By: #### L 500.2500, L100.0100 ####[facility] [address] [place], [address] Absolute Neut 7.7 X10 3/uL Normal 2.0-7.7 [facility] Comment on above: Performed By: #### L 500.2500, L100.0100 ####[facility] [address] [place], [address] Basophils/100 WBC (Bld) 0.1 % Normal 0-1 [facility] Comment on above: Performed By: #### L 500.2500, L100.0100 ####[facility] [address] [place], [address] Eosinophils/100 WBC (Bld) 0.0 % Normal 0-5 [facility] Comment on above: Performed By: #### L 500.2500, L100.0100 ####[facility] [address] [place], [address] Erythrocyte distribution width (RBC) [Ratio] 13.2 % Normal 11.6-14.6 [facility] Comment on above: Performed By: #### L 500.2500, L100.0100 ####[facility] [address] [place], [address] Hematocrit (Bld) [Volume fraction] 43.3 % Normal 40-54 [facility] Comment on above: Performed By: #### L 500.2500, L100.0100 ####[facility] [address] [place], [address] Hemoglobin (Bld) [Mass/Vol] 13.9 g/dL Normal 13.0-16.5 [facility] Comment on above: Performed By: #### L 500.2500, L100.0100 ####[facility] [address] [place], [address] IG% 1.200 High 0.0-0.9 [facility] Comment on above: Result Comment: IG% - Immature Granulocytes (promyelocytes, myelocytes andmetamyelocytes) > 1% indicates that a LEFT SHIFT is Present. Performed By: #### L 500.2500, L100.0100 ####[facility] [address] [place], [address] Lymphocytes/100 WBC (Bld) 5.2 % Low 19-41 [facility] Comment on above: Performed By: #### L 500.2500, L100.0100 ####[facility] [address] [place], [address] MCH (RBC) [Entitic mass] 28.5 pg Normal 27.0-32.0 [facility] Comment on above: Performed By: #### L 500.2500, L100.0100 ####[facility] [address] [place], [address] MCHC (RBC) [Mass/Vol] 32.1 g/dL Normal 32-36 [facility] Comment on above: Performed By: #### L 500.2500, L100.0100 ####[facility] [address] [place], [address] MCV (RBC) [Entitic vol] 88.9 fL Normal 80-94 [facility] Comment on above: Performed By: #### L 500.2500, L100.0100 ####[facility] [address] [place], [address] Monocytes/100 WBC (Bld) 3.9 % Normal 0-10 [facility] Comment on above: Performed By: #### L 500.2500, L100.0100 ####[facility] [address] [place], [address] Neutrophils/100 WBC (Bld) 89.6 % High 47-70 [facility] Comment on above: Performed By: #### L 500.2500, L100.0100 ####[facility] [address] [place], [address] Nucleated RBC (Bld) [#/Vol] 0 10*3/uL Normal 0-5 [facility] Comment on above: Performed By: #### L 500.2500, L100.0100 ####[facility] [address] [place], [address] Platelet mean volume (Bld) [Entitic vol] 10.2 fL Normal 6.2-12.0 [facility] Comment on above: Performed By: #### L 500.2500, L100.0100 ####[facility] [address] [place], [address] Platelets (Bld) [#/Vol] 200 10*3/uL Normal 150-450 [facility] Comment on above: Performed By: #### L 500.2500, L100.0100 ####[facility] [address] [place], [address] RBC (Bld) [#/Vol] 4.87 10*6/uL Normal 4.6-6.2 [facility] Comment on above: Performed By: #### L 500.2500, L100.0100 ####[facility] [address] [place], [address] RDW SD 42.7 fl Normal 35.1-43.9 [facility] Comment on above: Performed By: #### L 500.2500, L100.0100 ####[facility] [address] [place], [address] WBC (Bld) [#/Vol] 8.6 10*3/uL Normal 4.4-11.0 [facility] Comment on above: Performed By: #### L 500.2500, L100.0100 ####[facility] [address] [place], [address] Chest 1 View (Portable)on Chest 1 View (Portable) Normal [facility] Consultation - Infectious Dx on 08-17-2024 Consultation - Infectious Dx Normal [facility] Consultation - Intensiviston 08-17-2024 Consultation - Emergency Medical Technician Basic Normal [facility] Gram Stainon 08-17-2024 GS Acceptable Specimen? Yes (<25 Epithelial cells per/lpf) Gram Stain Rare Epithelial cells Very Rare Gram positive cocci in chains Normal [facility] Comment on above: Performed By: #### M 100.2000, M100.2400 ####[facility] [address] [place], [address] M8200.1000on 08-17-2024 M8200.1000 Normal Reference Ran ge = Negative MRSA DNA Nose Ql LEO+probe GeneXpert Instrument, PCR method MRSA PCR MRSA NEGATIVE Normal [facility] Comment on above: Performed By: #### M 8200.1000 ####[facility] [address] [place], [address] MRSA DNA LEO+probe Ql (Nose) Ordered By: Mack An on 08-17-2024 MRSA (PCR) [facility] Magnesium measurementOrdered By: Mack An on 08-17-2024 Magnesium [Mass/Vol] 2.6 mg/dL Normal 1.6-2.6 [facility] Comment on above: Performed By: #### L 501.5200, L501.2300 ####[facility] [address] [place], [address] Nasal methicillin resistant Staphylococcus aureus (MRSA) DNA detection by PCROrdered By: Mack An on 08-17-2024 MRSA DNA LEO+probe Ql (Nose) [facility] Phosphoruson 08-17-2024 Phosphate [Mass/Vol] 2.1 mg/dL Low 2.5-4.9 [facility] Comment on above: Performed By: #### L 501.5200, L501.2300 ####[facility] [address] [place], [address] Phosphate [Mass/Vol] 3.3 mg/dL Normal 2.5-4.9 [facility] Comment on above: Performed By: #### L 501.2300 ####[facility] [address] [place], [address] Phosphorus measurementOrdere d By: Mack An on 08-17-2024 Phosphorus Level 2.1 mg/dL Low 2.5-4.9 [facility] Serum or plasma trough vanco mycin levelOrdered By: Tanner Smallwood on 08-17-2024 Vancomycin trough [Mass/Vol] 15.2 ug/mL High 5.0-15.0 [facility] Comment on above: VANCOMYCIN STANDARED DRUG THERAPY TROUGH LEVEL: 5.0 - 15.0 mg/L VANCOMYCIN HIGH INTENSITY THERAPY TROUGH LEVEL: 15.0 - 20.0 mg/L High Intensity therapy recommended for serious lifethreatening infections include:- Xssegkdmoc-Sqqopdnqkbpc-Udkfqsniz (Ventilator/Healtcare Associated)-Sepsis PLEASE CONTACT PHARMACY SERVICES (#[id number]) FOR INTERPRETATIONOF RESULTS. Vancomycin trough [Mass/Vol] Ordered By: Tanner Smallwood on 08-17-2024 Vancomycin Level Trough 15.2 ug/mL High 5.0-15.0 [facility] Comment on above: VANCOMYCIN STANDARED DRUG THERAPY TROUGH LEVEL: 5.0 - 15.0 mg/L VANCOMYCIN HIGH INTENSITY THERAPY TROUGH LEVEL: 15.0 - 20.0 mg/L High Intensity therapy recommended for serious lifethreatening infections include:- Zoijlqrdbs-Kskaohtznhqi-Hbulcsmrs (Ventilator/Healtcare Associated)-Sepsis PLEASE CONTACT PHARMACY SERVICES (#[id number]) FOR INTERPRETATIONOF RESULTS. Vancomycin, Trough Levelon 0 08-17-2024 VANCO, TROUGH 15.2 ug/mL High 5.0-15.0 [facility] Comment on above: Order Comment: Comme nts: Trough to be drawn 30 mins prior to scheduled [id number] Result Comment: VANC OMYCIN STANDARED DRUG THERAPY TROUGH LEVEL: 5.0 - 15.0 mg/LVANCOMYCIN HIGH INTENSITY THERAPY TROUGH LEVEL: 15.0 - 20.0 mg/LHigh Intensity therapy recommended for serious lifethreatening infections include:- Hklhqxzxwq-Ctslrxpqgxsw-Sfnanqvgv (Ventilator/Healtcare Associated)-SepsisPLEASE CONTACT PHARMACY SERVICES (#[id number]) FOR INTERPRETATIONOF RESULTS. Performed By: #### L 501.8820 ####[facility] [address] [place], [address] Albumin to globulin ratioOrd ered By: Tanner Smallwood on 08-16-2024 Albumin/Globulin [Mass ratio] 1.0 {ratio} Normal 0.9-2.4 [facility] Comment on above: Performed By: #### L 500.4050, L100.0100, L501.2300 ####[facility] [address] [place], [address] Bedside Glucoseon 08-16-2024 FINGERSTICK GLU 230 mg/dL High [facility]106 [facility] Comment on above: Result Comment: USMAN GEMENT OF PATIENT CARE PER NURSING PROTOCOL Performed By: #### L 501.080 ####[facility] [address] [place], [address] FINGERSTICK GLU 262 mg/dL High 74-106 [facility] Comment on above: Result Comment: USMAN GEMENT OF PATIENT CARE PER NURSING PROTOCOL Performed By: #### L 501.080 ####[facility] [address] [place], [address] FINGERSTICK GLU 253 mg/dL High [facility]106 [facility] Comment on above: Result Comment: USMAN GEMENT OF PATIENT CARE PER NURSING PROTOCOL Performed By: #### L 501.080 ####[facility] [address] [place], [address] FINGERSTICK GLU 161 mg/dL High 74-106 [facility] Comment on above: Result Comment: USMAN CERVANTES OF PATIENT CARE PER NURSING PROTOCOL Performed By: #### L 501.080 ####[facility] [address] [place], [address] Bilirubin, totalOrdered By: Tanner Smallwood on 08-16-2024 Bilirubin [Mass/Vol] 0.50 mg/dL Normal 0.20-1.00 [facility] Comment on above: For patients on eltr ombopag therapy, use of Dimension Cashiers TBIL is not recommended. Result Comment: For patients on eltrombopag therapy, use of Dimension [place]iers TBIL is not recommended. Performed By: #### L 500.4050, L100.0100, L501.2300 ####[facility] [address] [place], [address] CBC W/Diff, Automatedon 02- Absolute Lymph 0.41 X10 3/uL Low 0.83-4.51 [facility] Comment on above: Performed By: #### L 500.4050, L100.0100, L501.2300 ####[facility] [address] [place], [address] Absolute Neut 4.6 X10 3/uL Normal 2.0-7.7 [facility] Comment on above: Performed By: #### L 500.4050, L100.0100, L501.2300 ####[facility] [address] [place], [address] Basophils/100 WBC (Bld) 0.5 % Normal 0-1 [facility] Comment on above: Performed By: #### L 500.4050, L100.0100, L501.2300 ####[facility] [address] [place], [address] Eosinophils/100 WBC (Bld) 0.2 % Normal 0-5 [facility] Comment on above: Performed By: #### L 500.4050, L100.0100, L501.2300 ####[facility] [address] [place], [address] Erythrocyte distribution width (RBC) [Ratio] 13.5 % Normal 11.6-14.6 [facility] Comment on above: Performed By: #### L 500.4050, L100.0100, L501.2300 ####[facility] [address] [place], [address] Hematocrit (Bld) [Volume fraction] 41.4 % Normal 40-54 [facility] Comment on above: Performed By: #### L 500.4050, L100.0100, L501.2300 ####[facility] [address] [place], [address] Hemoglobin (Bld) [Mass/Vol] 13.4 g/dL Normal 13.0-16.5 [facility] Comment on above: Performed By: #### L 500.4050, L100.0100, L501.2300 ####[facility] [address] [place], [address] IG% 0.500 Normal 0.0-0.9 [facility] Comment on above: Result Comment: IG% - Immature Granulocytes (promyelocytes, myelocytes andmetamyelocytes) > 1% indicates that a LEFT SHIFT is Present. Performed By: #### L 500.4050, L100.0100, L501.2300 ####[facility] [address] [place], [address] Lymphocytes/100 WBC (Bld) 7.2 % Low 19-41 [facility] Comment on above: Performed By: #### L 500.4050, L100.0100, L501.2300 ####[facility] [address] [place], [address] MCH (RBC) [Entitic mass] 29.1 pg Normal 27.0-32.0 [facility] Comment on above: Performed By: #### L 500.4050, L100.0100, L501.2300 ####[facility] [address] [place], [address] MCHC (RBC) [Mass/Vol] 32.4 g/dL Normal 32-36 [facility] Comment on above: Performed By: #### L 500.4050, L100.0100, L501.2300 ####[facility] [address] [place], [address] MCV (RBC) [Entitic vol] 89.8 fL Normal 80-94 [facility] Comment on above: Performed By: #### L 500.4050, L100.0100, L501.2300 ####[facility] [address] [place], [address] Monocytes/100 WBC (Bld) 10.7 % High 0-10 [facility] Comment on above: Performed By: #### L 500.4050, L100.0100, L501.2300 ####[facility] [address] [place], [address] Neutrophils/100 WBC (Bld) 80.9 % High 47-70 [facility] Comment on above: Performed By: #### L 500.4050, L100.0100, L501.2300 ####[facility] [address] [place], [address] Nucleated RBC (Bld) [#/Vol] 0 10*3/uL Normal 0-5 [facility] Comment on above: Performed By: #### L 500.4050, L100.0100, L501.2300 ####[facility] [address] [place], [address] Platelet mean volume (Bld) [Entitic vol] 10.1 fL Normal 6.2-12.0 [facility] Comment on above: Performed By: #### L 500.4050, L100.0100, L501.2300 ####[facility] [address] [place], [address] Platelets (Bld) [#/Vol] 166 10*3/uL Normal 150-450 [facility] Comment on above: Performed By: #### L 500.4050, L100.0100, L501.2300 ####[facility] [address] [place], [address] RBC (Bld) [#/Vol] 4.61 10*6/uL Normal 4.6-6.2 [facility] Comment on above: Performed By: #### L 500.4050, L100.0100, L501.2300 ####[facility] [address] [place], [address] RDW SD 44.4 fl High 35.1-43.9 [facility] Comment on above: Performed By: #### L 500.4050, L100.0100, L501.2300 ####[facility] [address] [place], [address] WBC (Bld) [#/Vol] 5.7 10*3/uL Normal 4.4-11.0 [facility] Comment on above: Performed By: #### L 500.4050, L100.0100, L501.2300 ####[facility] [address] [place], [address] Chest 1 View (Portable)on Chest 1 View (Portable) Normal [facility] Comprehensive Metabolic Prof ilon 08-16-2024 ALK P 41 U/L Low 45-117 [facility] Comment on above: Performed By: #### L 500.4050, L100.0100, L501.2300 ####[facility] [address] [place], [address] BUN/CRE 16.0 RATIO Normal 10-20 [facility] Comment on above: Performed By: #### L 500.4050, L100.0100, L501.2300 ####[facility] [address] [place], [address] CA,Total 7.3 mg/dL Low 8.5-10.1 [facility] Comment on above: Performed By: #### L 500.4050, L100.0100, L501.2300 ####[facility] [address] [place], [address] Chloride [Moles/Vol] 105 mmol/L Normal 98-107 [facility] Comment on above: Performed By: #### L 500.4050, L100.0100, L501.2300 ####[facility] [address] [place], [address] CO2 [Moles/Vol] 25.0 mmol/L Normal 21.0-32.0 [facility] Comment on above: Performed By: #### L 500.4050, L100.0100, L501.2300 ####[facility] [address] [place], [address] Creatinine [Mass/Vol] 1.06 mg/dL Normal 0.70-1.30 [facility] Comment on above: Result Comment: The validity of the calculated GFR GFRAA in patients over70 years has not been determined. Clinical correlation isessential. Performed By: #### L 500.4050, L100.0100, L501.2300 ####[facility] [address] [place], [address] ECRCL 100.14 ml/min Normal [facility] Comment on above: Performed By: #### L 500.4050, L100.0100, L501.2300 ####[facility] [address] [place], [address] EST GFR - AA 89 mL/min Normal >60 [facility] Comment on above: Result Comment: Afri can Grenadian GFR Calc Performed By: #### L 500.4050, L100.0100, L501.2300 ####[facility] [address] [place], [address] GAP 7 Normal 5-15 [facility] Comment on above: Performed By: #### L 500.4050, L100.0100, L501.2300 ####[facility] [address] [place], [address] GFR/1.73 sq M.predicted among non-blacks MDRD (S/P/Bld) [Vol rate/Area] 73 mL/min/{1.73_m2} Normal >60 [facility] Comment on above: Result Comment: Non- GFR Calc Performed By: #### L 500.4050, L100.0100, L501.2300 ####[facility] [address] [place], [address] Glucose [Mass/Vol] 149 mg/dL High 74-106 [facility] Comment on above: Result Comment: Fast ing Glucose result greater than or equal to 126 mg/dLsuggests DIABETES MELLITUS per A.D.A. criteria. Performed By: #### L 500.4050, L100.0100, L501.2300 ####[facility] [address] [place], [address] Potassium [Moles/Vol] 3.7 mmol/L Normal 3.5-5.1 [facility] Comment on above: Performed By: #### L 500.4050, L100.0100, L501.2300 ####[facility] [address] [place], [address] Sodium [Moles/Vol] 137 mmol/L Normal 136-145 [facility] Comment on above: Performed By: #### L 500.4050, L100.0100, L501.2300 ####[facility] [address] [place], [address] T PROT 6.5 g/dL Normal 6.4-8.2 [facility] Comment on above: Performed By: #### L 500.4050, L100.0100, L501.2300 ####[facility] [address] [place], [address] Urea nitrogen [Mass/Vol] 17 mg/dL Normal 7-18 [facility] Comment on above: Performed By: #### L 500.4050, L100.0100, L501.2300 ####[facility] [address] [place], [address] Comprehensive Metabolic Prof ilOrdered By: Tanner Smallwood on 08-16-2024 AST [Catalytic activity/Vol] 22 U/L Normal 15-37 [facility] Comment on above: Performed By: #### L 500.4050, L100.0100, L501.2300 ####[facility] [address] [place], [address] Gram stainOrdered By: Tanner Smallwood on 08-16-2024 Microscopic observation Gram stain Nom (Unsp spec) [facility] Hemoglobin A1con 08-16-2024 HbA1c (Bld) [Mass fraction] 6.7 % High 3.8-5.6 [facility] Comment on above: Result Comment: Norm al < 5.7 % Prediabetic 5.7 - 6.4 % Diabetic >or= 6.5 % Please note range changes. Performed By: #### L 501.4020, L501.9985, L501.5200, L501.9520 ####[facility] [address] [place], [address] High density lipoprotein (HD L) measurementOrdered By: Tanner Smallwood on 08-16-2024 Cholesterol in HDL [Mass/Vol] 40 mg/dL Normal [facility] Comment on above: The drugs N-Acetylcy steine and Metamizole may falsely depress this assay. Reference Range HDL <40 mg/dL Low HDL Cholesterol HDL >or= 60 mg/dL High HDL Cholesterol Result Comment: The drugs N-Acetylcysteine and Metamizole may falselydepress this assay. Reference Range HDL <40 mg/dL Low HDL Cholesterol HDL >or= 60 mg/dL High HDL Cholesterol Performed By: #### L 500.4100 ####[facility] [address] [place], [address] L. pneumophila Ag Ql (U)Orde red By: Tanner Smallwood on 08-16-2024 Legionella Antigen [facility] L501.4020on 08-16-2024 TROPONIN-I HS 15 pg/mL Normal 3.0-78.0 [facility] Comment on above: Order Comment: 'TROP ' Serial specimen #1, #2 or #3: 2 Result Comment: Plesharmin martino Note: New Test Units and Gender Specific Reference Ranges. For more information see Policy Stat Procedure Cashiers High Sensitivity Troponin (TNIH) and attachments. Performed By: #### L 501.4020, L501.9985, L501.5200, L501.9520 ####[facility] [address] [place], [address] Lactic Acidon 08-16-2024 Lactate [Moles/Vol] 1.8 mmol/L Normal 0.4-1.9 [facility] Comment on above: Performed By: #### L 503.600 ####[facility] [address] [place], [place], [address] Lactic acid measurementOrder ed By: Vera Orta on 08-16-2024 Lactate [Moles/Vol] 1.8 mmol/L 0.4-2.0 [facility] Legionella Antigen Urineon 0 08-16-2024 LEGU Normal [facility] Comment on above: Performed By: #### M 300.6530, M300.4500 ####[facility] [address] [place], [address] Lipid Profileon 08-16-2024 Cholesterol in VLDL [Mass/Vol] 13 mg/dL Normal 5-40 [facility] Comment on above: Performed By: #### L 500.4100 ####[facility] [address] [place], [address] Low density lipoprotein (LDL ) cholesterol measurementOrdered By: Tanner Smallwood on 08-16-2024 Cholesterol in LDL [Mass/Vol] 32 mg/dL Normal 0-130 [facility] Comment on above: Performed By: #### L 500.4100 ####[facility] [address] [place], [address] M100.019on 08-16-2024 M100.019 Negative Normal [facility] Comment on above: Performed By: #### M 100.638, M100.019 ####[facility] [address] [place], [address] Magnesiumon 08-16-2024 Magnesium [Mass/Vol] 1.7 mg/dL Normal 1.6-2.6 [facility] Comment on above: Order Comment: 'TROP ' Serial specimen #1, #2 or #3: 2 Performed By: #### L 501.4020, L501.9985, L501.5200, L501.9520 ####[facility] [address] [place], [address] Microbial respiratory cultur eOrdered By: Tanner Smallwood on 08-16-2024 Microorganism identified Cx Nom (Unsp spec) or Staphylococcus aureus isolated. [facility] Microorganism identified Cx Nom (Unsp spec)Ordered By: Tanner Smallwood on 08-16-2024 Respiratory Culture or Staphylococcus au reus isolated. [facility] Phosphoruson 08-16-2024 Phosphate [Mass/Vol] 3.6 mg/dL Normal 2.5-4.9 [facility] Comment on above: Performed By: #### L 500.4050, L100.0100, L501.2300 ####[facility] [address] [place], [address] RESPIRATORY PANEL MOLECULARo n 08-16-2024 RP PANEL Normal [facility] Comment on above: Performed By: #### M 100.638, M100.019 ####[facility] [address] [place], [address] Respiratory pathogens DNA an d RNA panel LEO+probe (Resp)Ordered By: Mack An on 08-16-2024 Respiratory Panel (PCR) Influenza A (Subtype H1) Abnormal [facility] Respiratory pathogens detect ion panel by molecular detection methodOrdered By: Mack An on 08-16-2024 Respiratory pathogens DNA and RNA panel LEO+probe (Resp) Influenza A (Subtype H1) Abnormal [facility] Yxlq-yll-3Urjtskq By: Radha An on 08-16-2024 SARS-CoV-2 (COVID-19) RNA LEO+probe Ql (Unsp spec) [facility] Serum globulin measurementOr dered By: Tanner Smallwood on 08-16-2024 Globulin (S) [Mass/Vol] 3.3 g/dL Normal 2.2-4.2 [facility] Comment on above: Performed By: #### L 500.4050, L100.0100, L501.2300 ####[facility] [address] [place], [address] Serum or plasma alanine frias otransferase (ALT) measurementOrdered By: Tanner Smallwood on 08-16-2024 ALT [Catalytic activity/Vol] 26 U/L Normal 16-61 [facility] Comment on above: Performed By: #### L 500.4050, L100.0100, L501.2300 ####[facility] [address] [place], [address] Serum or plasma albumin melva urement (mass/volume)Ordered By: Tanner Smallwood on 08-16-2024 Albumin [Mass/Vol] 3.2 g/dL Normal 3.2-5.0 [facility] Comment on above: Performed By: #### L 500.4050, L100.0100, L501.2300 ####[facility] [address] [place], [address] Serum or plasma alkaline teresa sphatase measurementOrdered By: Tanner Smallwood on 08-16-2024 ALP [Catalytic activity/Vol] 41 U/L Low 45-117 [facility] Serum or plasma cholesterol measurement (mass/volume)Ordered By: Tanner Smallwood on 08-16-2024 Cholesterol [Mass/Vol] 85 mg/dL Normal 200 [facility] Comment on above: <200 mg/dL Desirable 200-240 mg/dL Borderline >240 mg/dL High Risk Result Comment: <200 mg/dL Desirable 200-240 mg/dL Borderline >240 mg/dL High Risk Performed By: #### L 500.4100 ####[facility] [address] [place], [address] Strep pneumoniae Antig(UR,CS F)on 08-16-2024 STPAG Normal [facility] Comment on above: Performed By: #### M 300.4600, M300.4500 ####[facility] [address] [place], [address] Streptococcus pneumoniae ant igen assayOrdered By: Tanner Smallwood on 08-16-2024 Streptococcus pneumoniae Antigen (M [facility] Thyroid Stim Hormone (TSH)on 08-16-2024 TSH 0.461 uIU/mL Normal 0.358-3.740 [facility] Comment on above: Order Comment: 'TROP ' Serial specimen #1, #2 or #3: 2 Performed By: #### L 501.4020, L501.9985, L501.5200, L501.9520 ####[facility] [address] [place], [address] Total proteinOrdered By: Hardik Smallwood on 08-16-2024 Protein [Mass/Vol] 6.5 g/dL 6.4-8.2 [facility] Triglycerides measurementOrd ered By: Tanner Smallwood on 08-16-2024 Triglyceride [Mass/Vol] 65 mg/dL Normal [facility] Comment on above: The drugs N-Acetylcy steine and Metamizole may falsely depress this assay.Serum Triglycerides Reference Interval Normal <150 mg/dL Borderline high 150 - 199 mg/dL High 200 - 499 mg/dL Very High > or = 500 mg/dL Result Comment: The drugs N-Acetylcysteine and Metamizole may falselydepress this assay.Serum Triglycerides Reference Interval Normal <150 mg/dL Borderline high 150 - 199 mg/dL High 200 - 499 mg/dL Very High > or = 500 mg/dL Performed By: #### L 500.4100 ####[facility] [address] [place], [address] Urinalysis, Completeon 08-16 BACTERIA 0 SEEN Normal None Seen [facility] Comment on above: Order Comment: REBECCA CTOR TO SPECIFY Performed By: #### L 400.0001 ####[facility] [address] [place], [address] EPI,SQUAMOUS 0 SEEN Normal 0-5 [facility] Comment on above: Order Comment: REBECCA CTOR TO SPECIFY Performed By: #### L 400.0001 ####[facility] [address] [place], [address] Mucus Ql (Urine sed) 0 SEEN Normal [facility] Comment on above: Order Comment: REBECCA CTOR TO SPECIFY Performed By: #### L 400.0001 ####[facility] [address] [place], [address] RBC 0 SEEN Normal 0-5 [facility] Comment on above: Order Comment: REBECCA CTOR TO SPECIFY Performed By: #### L 400.0001 ####[facility] [address] [place], [address] WBC 0 SEEN Normal 0-5 [facility] Comment on above: Order Comment: COLLE CTOR TO SPECIFY Performed By: #### L 400.0001 ####[facility] [address] [place], [place], [address] Urine Legionella pneumophila antigen detectionOrdered By: Tanner Smallwood on 08-16-2024 L. pneumophila Ag Ql (U) [facility] Very low density lipoprotein (VLDL) cholesterol measurementOrdered By: Tanner Smallwood on 08-16-2024 Very low density lipoprotein (VLDL) cholesterol measurement 13 mg/dL 5-40 [facility] VLDL Cholesterol 13 mg/dL 5-40 [facility] 12 Lead EKGon 08-15-2024 12 Lead EKG Normal [facility] BNP (brain natriuretic pepti de measurement)Ordered By: Vera Orta on 08-15-2024 Natriuretic peptide B (Bld) [Mass/Vol] 15.7 pg/mL 0-100 [facility] BNP,B-Type NATRIURETIC PEPTI Agata 08-15-2024 Natriuretic peptide B (Bld) [Mass/Vol] 15.7 pg/mL Normal 0-100 [facility] Comment on above: Performed By: #### L 503.6005, L501.5425, L500.4050, L503.6620, L100.0100 ####[facility] [address] [place], [place], [address] Bilirubin Test strip Ql (U)O rdered By: Tanner Smallwood on 08-15-2024 Bilirubin Ql (U) Negative Negative [facility] CBC W/Diff, Automatedon 02-0 Absolute Lymph 0.52 X10 3/uL Low 0.83-4.51 [facility] Comment on above: Performed By: #### L 503.6005, L501.5425, L500.4050, L503.6620, L100.0100 ####[facility] [address] [place], [place], [address] Absolute Neut 5.5 X10 3/uL Normal 2.0-7.7 [facility] Comment on above: Performed By: #### L 503.6005, L501.5425, L500.4050, L503.6620, L100.0100 ####[facility] [address] [place], [address] Basophils/100 WBC (Bld) 0.6 % Normal 0-1 [facility] Comment on above: Performed By: #### L 503.6005, L501.5425, L500.4050, L503.6620, L100.0100 ####[facility] [address] [place], [address] Eosinophils/100 WBC (Bld) 0.6 % Normal 0-5 [facility] Comment on above: Performed By: #### L 503.6005, L501.5425, L500.4050, L503.6620, L100.0100 ####[facility] [address] [place], [address] Erythrocyte distribution width (RBC) [Ratio] 13.2 % Normal 11.6-14.6 [facility] Comment on above: Performed By: #### L 503.6005, L501.5425, L500.4050, L503.6620, L100.0100 ####[facility] [address] [place], [address] Hematocrit (Bld) [Volume fraction] 44.8 % Normal 40-54 [facility] Comment on above: Performed By: #### L 503.6005, L501.5425, L500.4050, L503.6620, L100.0100 ####[facility] [address] [place], [address] Hemoglobin (Bld) [Mass/Vol] 14.8 g/dL Normal 13.0-16.5 [facility] Comment on above: Performed By: #### L 503.6005, L501.5425, L500.4050, L503.6620, L100.0100 ####[facility] [address] [place], [address] IG% 0.400 Normal 0.0-0.9 [facility] Comment on above: Result Comment: IG% - Immature Granulocytes (promyelocytes, myelocytes andmetamyelocytes) > 1% indicates that a LEFT SHIFT is Present. Performed By: #### L 503.6005, L501.5425, L500.4050, L503.6620, L100.0100 ####[facility] [address] [place], [address] Lymphocytes/100 WBC (Bld) 7.6 % Low 19-41 [facility] Comment on above: Performed By: #### L 503.6005, L501.5425, L500.4050, L503.6620, L100.0100 ####[facility] [address] [place], [address] MCH (RBC) [Entitic mass] 29.0 pg Normal 27.0-32.0 [facility] Comment on above: Performed By: #### L 503.6005, L501.5425, L500.4050, L503.6620, L100.0100 ####[facility] [address] [place], [address] MCHC (RBC) [Mass/Vol] 33.0 g/dL Normal 32-36 [facility] Comment on above: Performed By: #### L 503.6005, L501.5425, L500.4050, L503.6620, L100.0100 ####[facility] [address] [place], [address] MCV (RBC) [Entitic vol] 87.7 fL Normal 80-94 [facility] Comment on above: Performed By: #### L 503.6005, L501.5425, L500.4050, L503.6620, L100.0100 ####[facility] [address] [place], [address] Monocytes/100 WBC (Bld) 10.4 % High 0-10 [facility] Comment on above: Performed By: #### L 503.6005, L501.5425, L500.4050, L503.6620, L100.0100 ####[facility] [address] [place], [address] Neutrophils/100 WBC (Bld) 80.4 % High 47-70 [facility] Comment on above: Performed By: #### L 503.6005, L501.5425, L500.4050, L503.6620, L100.0100 ####[facility] [address] [place], [address] Nucleated RBC (Bld) [#/Vol] 0 10*3/uL Normal 0-5 [facility] Comment on above: Performed By: #### L 503.6005, L501.5425, L500.4050, L503.6620, L100.0100 ####[facility] [address] [place], [address] Platelet mean volume (Bld) [Entitic vol] 10.1 fL Normal 6.2-12.0 [facility] Comment on above: Performed By: #### L 503.6005, L501.5425, L500.4050, L503.6620, L100.0100 ####[facility] [address] [place], [address] Platelets (Bld) [#/Vol] 219 10*3/uL Normal 150-450 [facility] Comment on above: Performed By: #### L 503.6005, L501.5425, L500.4050, L503.6620, L100.0100 ####[facility] [address] [place], [address] RBC (Bld) [#/Vol] 5.11 10*6/uL Normal 4.6-6.2 [facility] Comment on above: Performed By: #### L 503.6005, L501.5425, L500.4050, L503.6620, L100.0100 ####[facility] [address] [place], [address] RDW SD 41.9 fl Normal 35.1-43.9 [facility] Comment on above: Performed By: #### L 503.6005, L501.5425, L500.4050, L503.6620, L100.0100 ####[facility] [address] [place], [address] WBC (Bld) [#/Vol] 6.8 10*3/uL Normal 4.4-11.0 [facility] Comment on above: Performed By: #### L 503.6005, L501.5425, L500.4050, L503.6620, L100.0100 ####[facility] [address] [place], [place], [address] CNOVon 08-15-2024 [facility] MARY AGUIAR ([id number]) 1955 M Date Time Provider Department 08/15/24 1:45 PM [facility] During your visit today, we recorded the [...] by mouth once daily. Take with food. [place]-3 Fatty Acids-Vitamin E (FISH OIL) 1,000 mg [...] Diagnosis:Influenza-like illness [J11.1] Order(s):INFLUENZA AANDB MOLECULAR (POC) [[id number]] Order #: [id number]. #:[id number] Prescriptions as of 08/15/2024 - cyclobenzaprine [...] blood sugar( (more content not included)... Normal [facility] CTA Chest W/WO Contraston CTA Chest W/WO Contrast Normal [facility] Carotid Duplex Ultrasoundon 08-15-2024 Carotid Duplex Ultrasound Normal [facility] Chest PA and Lateralon 08-15 Chest PA and Lateral Normal [facility] Comprehensive Metabolic Prof ilon 08-15-2024 Albumin [Mass/Vol] 3.7 g/dL Normal 3.2-5.0 [facility] Comment on above: Performed By: #### L 503.6005, L501.5425, L500.4050, L503.6620, L100.0100 ####[facility] [address] [place], [address] Albumin/Globulin [Mass ratio] 1.0 {ratio} Normal 0.9-2.4 [facility] Comment on above: Performed By: #### L 503.6005, L501.5425, L500.4050, L503.6620, L100.0100 ####[facility] [address] [place], [address] ALK P 51 U/L Normal 45-117 [facility] Comment on above: Performed By: #### L 503.6005, L501.5425, L500.4050, L503.6620, L100.0100 ####[facility] [address] [place], [address] ALT [Catalytic activity/Vol] 30 U/L Normal 16-61 [facility] Comment on above: Performed By: #### L 503.6005, L501.5425, L500.4050, L503.6620, L100.0100 ####[facility] [address] [place], [address] AST [Catalytic activity/Vol] 18 U/L Normal 15-37 [facility] Comment on above: Performed By: #### L 503.6005, L501.5425, L500.4050, L503.6620, L100.0100 ####[facility] [address] [place], [address] Bilirubin [Mass/Vol] 0.70 mg/dL Normal 0.20-1.00 [facility] Comment on above: Result Comment: For patients on eltrombopag therapy, use of Dimension [place] TBIL is not recommended. Performed By: #### L 503.6005, L501.5425, L500.4050, L503.6620, L100.0100 ####[facility] [address] [place], [address] BUN/CRE 12.9 RATIO Normal 10-20 [facility] Comment on above: Performed By: #### L 503.6005, L501.5425, L500.4050, L503.6620, L100.0100 ####[facility] [address] [place], [address] CA,Total 8.5 mg/dL Normal 8.5-10.1 [facility] Comment on above: Performed By: #### L 503.6005, L501.5425, L500.4050, L503.6620, L100.0100 ####[facility] [address] [place], [address] Chloride [Moles/Vol] 98 mmol/L Normal 98-107 [facility] Comment on above: Performed By: #### L 503.6005, L501.5425, L500.4050, L503.6620, L100.0100 ####[facility] [address] [place], [address] CO2 [Moles/Vol] 26.0 mmol/L Normal 21.0-32.0 [facility] Comment on above: Performed By: #### L 503.6005, L501.5425, L500.4050, L503.6620, L100.0100 ####[facility] [address] [place], [address] Creatinine [Mass/Vol] 1.39 mg/dL High 0.70-1.30 [facility] Comment on above: Result Comment: The validity of the calculated GFR GFRAA in patients over70 years has not been determined. Clinical correlation isessential. Performed By: #### L 503.6005, L501.5425, L500.4050, L503.6620, L100.0100 ####[facility] [address] [place], [address] ECRCL 76.09 ml/min Normal [facility] Comment on above: Performed By: #### L 503.6005, L501.5425, L500.4050, L503.6620, L100.0100 ####[facility] [address] [place], [address] EST GFR - AA 65 mL/min Normal >60 [facility] Comment on above: Result Comment: Afri can Grenadian GFR Calc Performed By: #### L 503.6005, L501.5425, L500.4050, L503.6620, L100.0100 ####[facility] [address] [place], [address] GAP 9 Normal 5-15 [facility] Comment on above: Performed By: #### L 503.6005, L501.5425, L500.4050, L503.6620, L100.0100 ####[facility] [address] [place], [address] GFR/1.73 sq M.predicted among non-blacks MDRD (S/P/Bld) [Vol rate/Area] 54 mL/min/{1.73_m2} Low >60 [facility] Comment on above: Result Comment: Non- GFR Calc Performed By: #### L 503.6005, L501.5425, L500.4050, L503.6620, L100.0100 ####[facility] [address] [place], [address] Globulin (S) [Mass/Vol] 3.8 g/dL Normal 2.2-4.2 [facility] Comment on above: Performed By: #### L 503.6005, L501.5425, L500.4050, L503.6620, L100.0100 ####[facility] [address] [place], [address] Glucose [Mass/Vol] 195 mg/dL High 74-106 [facility] Comment on above: Result Comment: Fast ing Glucose result greater than or equal to 126 mg/dLsuggests DIABETES MELLITUS per A.D.A. criteria. Performed By: #### L 503.6005, L501.5425, L500.4050, L503.6620, L100.0100 ####[facility] [address] [place], [address] Potassium [Moles/Vol] 3.8 mmol/L Normal 3.5-5.1 [facility] Comment on above: Performed By: #### L 503.6005, L501.5425, L500.4050, L503.6620, L100.0100 ####[facility] [address] [place], [address] Sodium [Moles/Vol] 134 mmol/L Low 136-145 [facility] Comment on above: Performed By: #### L 503.6005, L501.5425, L500.4050, L503.6620, L100.0100 ####[facility] [address] [place], [address] T PROT 7.5 g/dL Normal 6.4-8.2 [facility] Comment on above: Performed By: #### L 503.6005, L501.5425, L500.4050, L503.6620, L100.0100 ####[facility] [address] [place], [address] Urea nitrogen [Mass/Vol] 18 mg/dL Normal 7-18 [facility] Comment on above: Performed By: #### L 503.6005, L501.5425, L500.4050, L503.6620, L100.0100 ####[facility] [address] [place], [address] Echo Complete W/ Contraston 08-15-2024 Echo Complete W/ Contrast Normal [facility] Emergency Department Summary on 08-15-2024 Emergency Department Summary Normal [facility] Epithelial cells.squamous LM Ql (Urine sed)Ordered By: Tanner Smallwood on 08-15-2024 Epithelial cells.squamous LM.HPF (Urine sed) [#/Area] 0 /[HPF] 0-5 [facility] Glucose Ql (U)Ordered By: Braulio Smallwood on 08-15-2024 Urine Glucose (UA) Normal mg/dl Normal [facility] H AND P Exam - Hospitaliston 08-15-2024 H&P Exam - Hospitalist Normal [facility] Hemoglobin A1c percentageOrd ered By: Tanner Smallwood on 08-15-2024 HbA1c (Bld) [Mass fraction] 6.7 % High 3.8-5.6 [facility] Comment on above: Normal < 5.7 % Predi abetic 5.7 - 6.4 % Diabetic >or= 6.5 % Please note range changes. INFLUENZA A&B MOLECULAR (POC )on 08-15-2024 Flu A (POCT) Positive Abnormal Negative [facility] Comment on above: Location:[facility], [address], [place], [address] Interpretation and review of laboratory results Abnormal [facility] Procedural Control Valid [facility] Location:[facility], [address], [place], [address] [facility] POINT OF CARE [facility] Ketones Test strip Ql (U)Ord ered By: Tanner Smallwood on 08-15-2024 Ketones Ql (U) Negative Negative [facility] L501.5425on 08-15-2024 TROPONIN-I HS 10 pg/mL Normal 3.0-78.0 [facility] Comment on above: Order Comment: 1Y Result Comment: Masoud martino Note: New Test Units and Gender Specific Reference Ranges. For more information see Policy Stat Procedure Cashiers High Sensitivity Troponin (TNIH) and attachments. Performed By: #### L 503.6005, L501.5425, L500.4050, L503.6620, L100.0100 ####[facility] [address] [place], [address] Lactic Acidon 08-15-2024 Lactate [Moles/Vol] 2.5 mmol/L Invalid Interpretation Code 0.4-1.9 [facility] Comment on above: Order Comment: Y Result Comment: Crit ical Result(s) Called at: 22:18:34 08/15/2024 by: KRUPA to Ivan Langston. Results read back by same. Performed By: #### L 503.6005, L501.5425, L500.4050, L503.6620, L100.0100 ####[facility] [address] [place], [address] Microscopic analysis of urin e for red blood cells (RBC)Ordered By: Tanner Smallwood on 08-15-2024 Microscopic analysis of urine for red blood cells (RBC) 0 SEEN /hpf 0-5 [facility] Urine RBC 0 SEEN /hpf 0-5 [facility] Mucus LM Ql (Urine sed)Order ed By: Tanner Smallwood on 08-15-2024 Mucus Ql (Urine sed) 0 SEEN /hpf [facility] Nitrite Test strip Ql (U)Ord ered By: Tanner Smallwood on 08-15-2024 Nitrite Ql (U) Negative Negative [facility] Protein Test strip Ql (U)Ord ered By: Tanner Smallwood on 08-15-2024 Protein Ql (U) 30 mg/dl High Negative [facility] Serum or plasma thyroid stim ulating hormone (TSH) measurement (units/volume)Ordered By: Tanner Smallwood on 08-15-2024 TSH Qn 0.461 uIU/mL 0.358-3.740 [facility] Squamous epithelial cells de tection in urine sediment by light microscopyOrdered By: Tanner Smallwood on 08-15-2024 Epithelial cells.squamous LM Ql (Urine sed) 0 SEEN /hpf 0-5 [facility] TSH QnOrdered By: Tanner riley on 08-15-2024 Thyroid Stimulating Hormone (TSH) 0.461 uIU/mL 0.358-3.740 [facility] Troponin IOrdered By: Tanner Smallwood on 08-15-2024 Troponin I 15 pg/mL 3.0-78.0 [facility] Comment on above: Please Note: New Shantell t Units and Gender Specific Reference Ranges. For more information see Policy Stat Procedure [place]iers High Sensitivity Troponin (TNIH) and attachments. Troponin I High Sensitivity 15 pg/mL 3.0-78.0 [facility] Comment on above: Please Note: New Shantell t Units and Gender Specific Reference Ranges. For more information see Policy Stat Procedure [place] High Sensitivity Troponin (TNIH) and attachments. Urine blood detectionOrdered By: Tanner Smallwood on 08-15-2024 Urine Occult Blood 10 /ul High Negative [facility] Urine clarityOrdered By: Hardik Smallwood on 08-15-2024 Clarity (U) Clear Clear [facility] Urine color determinationOrd ered By: Tanner Smallwood on 08-15-2024 Color (U) Yellow Yellow [facility] Urine glucose detectionOrder ed By: Tanner Smallwood on 08-15-2024 Glucose Ql (U) Normal mg/dl Normal [facility] Urine leukocyte esterase det ection by dipstickOrdered By: Tanner Smallwood on 08-15-2024 Leukocyte esterase Test strip Ql (U) 25 /ul High Negative [facility] Urine pHOrdered By: Tanner ribera on 08-15-2024 pH (U) 5.0 [pH] 5.0 - 8.0 [facility] Urine sediment bacteria coun t by microscopy (number/high power field)Ordered By: Tanner Smallwood on 08-15-2024 Bacteria LM.HPF (Urine sed) [#/Area] 0 /[HPF] None Seen [facility] Urine specific gravity measu rementOrdered By: Tanner Smallwood on 08-15-2024 Specific gravity (U) [Rel density] 1.015 1.002-1.030 [facility] Urine urobilinogen measureme ntOrdered By: Tanner Smallwood on 08-15-2024 Urobilinogen Ql (U) Normal mg/dl Normal [facility] Urobilinogen Ql (U)Ordered B y: Tanner Smallwood on 08-15-2024 Urine Urobilinogen Normal mg/dl Normal [facility] White blood cell countOrdere d By: Tanner Smallwood on 08-15-2024 Urine WBC 0 SEEN /hpf 0-5 [facility] White blood cell count 0 [facility]) -- MARY AGUIAR ([id number]) 1955 M Date Time Provider Department 07[facility]06/[facility] visit today, we recorded the following information about you: Amanda Marrero, AYALA 07/06/2024 11:29 AM Signed 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 States [...] he verbalized understanding. Patient aware that MARCELINA Pyane is out of office this week as well as PCP, and will be advised on his medication question as soon as possible. AYALA Saenz Jacqueline A, APRN.[facility] 07/06/2024 11:34 AM Signed Stop Actos. I [...] Fully Assessed Reason for Visit: Patient Question [3847] Patient Update [5984] Prescriptions as of 07/16/2024 - cyclobenzaprine (FLEXERIL) [...] mouth once daily. Take with food. - [place]-3 Fatty Acids-Vitamin E (FISH OIL) 1,000 mg [...] mixed [E78.2] more content not included)... Normal [facility] CNOVon 06-25-2024 CNOV Office Visit (FAMWS ) -- COSMEMARY Parker ([id number]) 1955 M Date Time Provider Department 06/25/24 10:00 AM [facility] During your visit today, we recorded the following information about you: Temperature Pulse Respiration Blood pressure 97.4 degrees 71/minute 18/minute 130/80 Weight 155.6 kg Farzana Kelly PA-C 06/25/2024 10:21 AM Signed Chief Complaint Patient presents with: Neck Pain: X 2 weeks HPI Mary E Ferndale is a 68 year old male who [...] left 04/12/2017 Cervicalgia 06/26/2017 Diabetic eye exam ([facility]) 03/29/2022 Last done 01/11/22 Dr Rafiq Avendano [...] Morbid obesity with BMI of 40.0-44.9, adult ([facility]) 07/06/2010 Palpitations 11/29/2021 Has had for many years Personal history of colonic polyps 2018 Plantar fasciitis 05/02/2018 Proteinuria due to type 2 diabetes mellitus ([facility]) ([facility]) 05/15/2021 Rosacea 03/11/2021 Sleep apnea 09/01/2007 Not using CPAP Stasis dermatitis 07/07/2011 Type 2 diabetes mellitus without complication, without long-term current use of insulin ([facility]) 02/11/2016 Uncontrolled type 2 diabetes mellitus with hyperglycemia ([facility]) 07/28/2021 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 Venous (peripheral) insufficiency 03/08/2005 Previous Surgical History PAST SURGICAL HISTORY Procedure Laterality Date CHOLECYSTECTOMY 2002 Cholecystectomy COLONOSCOPY FLX DX W/COLLJ SPEC WHEN PFRMD 11-21-07 COLONOSCOPY FLX DX W/COLLJ SPEC WHEN PFRMD 06/13/2018 [facility]-Michael De Anda--Repeat 5 years COLSC FLX W/RMVL OF TUMOR POLYP LESION SNARE TQ 04-23-13 DEBRIDEMENT SUBCUTANEOUS TISSUE 20 SQ CM/< Left 06/27/15 Debridement UIQ left breast infected glenny cyst ENDOVENOUS LASER, 1ST VEIN 11/16/2014 [facility] - see scanned documents ENDOVENOUS LASER, 1ST VEIN 06/05/2015 [facility] - right great saphenous vein NEUROPLASTY [...] by mouth once daily. Take with food. [place]-3 Fatty Acids-Vitamin E (FISH OIL) 1,000 mg cap Take 1 capsule by mouth once daily. MULTI-VITAMIN ORAL Take by mouth. No current facility-administered medications on file prior to visit. Social History Social History Tobacco Use Smoking status: Former Current packs/day: 0.00 Average packs/day: 0.5 packs/day for 30.0 years (15.0 ttl pk-yrs) Types: Cigarettes St (more content not included)... Normal [facility] 05-11-2024 [facility] Nurse Visit (FAMPWS) -- COSMEMARY Parker ([id number]) 1955 M Date Time Provider Department 05/11/24 11:15 AM [place] NURSE BRENDA During your visit today, we recorded the [...] [58] Primary Visit Diagnosis:Encounter for immunization [Z23] Order(s):Housekeep COVID-19 VACCINE AGE 12+ YR (COMIRNATY) [[id number]] Order #: [id number] Prescriptions as of 05/11/2024 - amLODIPine (NORVASC) [...] mouth once daily. Take with food. - [place]-3 Fatty Acids-Vitamin E (FISH OIL) 1,000 mg [...] Encounter Status:Closed by LALITA PEREZ on 05/11/24 Normal [facility] Glucose Glucometer (BldC) [M ass/Vol]Ordered By: Kishore De Anda on 07-11-2023 Glucose [Mass/Vol] 174 mg/dL 74-106 [facility] Comment on above: MANAGEMENT OF PATIEN T CARE PER NURSING PROTOCOL CT PANCREAS W IVCONon 2022 [facility] XR FOOT GENERAL 3V AP/LAT/OB L LEFTon 03-28-2022 [facility] XR Foot - left AP and Latera l and obliqueon 03-28-2022 IMPRESSION: Mild degenerative change with no acute process seen. Bookstore Manager: PSCB Transcribe Date/Time: Mar 28 2022 12:55P Dictated by : JALEEL BEE MD This examination was interpreted and the report reviewed and electronically signed by: JALEEL BEE MD on Mar 28 2022 12:56PM [facility] DIVISION OF RADIOLOGY * * *Final Report* [...] abnormality is seen. DIVISION OF RADIOLOGY Provider, [facility] - 03/28/2022 * * *Final Report* * [...] degenerative change with no acute process seen. Bookstore Manager: PSCB Transcribe Date/Time: Mar 28 2022 12:55P Dictated by : JALEEL BEE MD This examination was interpreted and the report reviewed and electronically signed by: JALEEL BEE MD on Mar 28 2022 12:56PM EST [facility] Radiology Study observation (narrative) [facility] XR Foot - left AP and Latera l and obliqueOrdered By: Ccf Provider on 03-28-2022 [facility] CBC W Auto Differential pane l (Bld)on 11-29-2021 Abs Immature Gran <0.03 <0.10 k/uL [facility] Basophils (Bld) [#/Vol] 0.05 10*3/uL <0.11 k/uL [facility] Basophils/100 WBC (Bld) 0.7 % [facility] Differential cell count method Nom (Bld) Auto [facility] Eosinophils (Bld) [#/Vol] 0.36 10*3/uL <0.46 k/uL [facility] Eosinophils/100 WBC (Bld) 4.9 % [facility] Erythrocyte distribution width (RBC) [Ratio] 13.2 % 11.5 - 15.0 % [facility] Hematocrit (Bld) [Volume fraction] 43.6 % 39.0 - 51.0 % [facility] Hemoglobin (Bld) [Mass/Vol] 13.9 g/dL 13.0 - 17.0 g/dL [facility] Immature Gran % 0.3 % [facility] Lymphocytes (Bld) [#/Vol] 2.86 10*3/uL 1.00 - 4.00 k/uL [facility] Lymphocytes/100 WBC (Bld) 38.8 % [facility] MCH (RBC) [Entitic mass] 27.5 pg 26.0 - 34.0 pg [facility] MCHC (RBC) [Mass/Vol] 31.9 g/dL 30.5 - 36.0 g/dL [facility] MCV (RBC) [Entitic vol] 86.3 fL 80.0 - 100.0 fL [facility] Monocytes (Bld) [#/Vol] 0.55 10*3/uL <0.87 k/uL [facility] Monocytes/100 WBC (Bld) 7.5 % [facility] Neutrophils (Bld) [#/Vol] 3.54 10*3/uL 1.45 - 7.50 k/uL [facility] Neutrophils/100 WBC (Bld) 47.8 % [facility] Nucleated RBC (Bld) [#/Vol] 10*3/uL <0.01 k/uL [facility] Nucleated RBC/100 WBC (Bld) [Ratio] 0.0 /100 WBC [facility] Platelet mean volume (Bld) [Entitic vol] 10.5 fL 9.0 - 12.7 fL [facility] Platelets (Bld) [#/Vol] 253 10*3/uL 150 - 400 k/uL [facility] RBC (Bld) [#/Vol] 5.05 10*6/uL 4.20 - 6.0 0 m/uL [facility] WBC (Bld) [#/Vol] 7.38 10*3/uL 3.70 - 11.00 k/uL [facility] Vital Signs Date Time Vital Sign Value Performing Clinician Facility 04-15-2025 08:17-0400 Body mass index (BMI) [Ratio] 42.7 kg/m2 Dr. Rick Sow MD Work Phone: 8(193)177-642278 [place] [address] 04-15-2025 08:17-0400 Body weight 146.[address] Rick Sow MD Work Phone: 1(245)874-131378 [place] [address] 04-15-2025 08:17-0400 Diastolic blood pressure 75 mm[Hg] Dr. Rick Sow MD Work Phone: 3(055)264-100378 [place] [address] 04-15-2025 08:17-0400 Heart rate 48 /min Dr. Rick Sow MD Work Phone: 4(703)615-656478 [place] [address] 04-15-2025 08:17-0400 Respiratory rate 20 /min Dr. Rick Sow MD Work Phone: 7(990)973-384478 [place] [address] 04-15-2025 08:17-0400 SaO2% (BldA) [Mass fraction] 93 % Dr. Rick Sow MD Work Phone: 6(533)293-996878 [place] [address] 04-15-2025 08:17-0400 Systolic blood pressure 135 mm[Hg] Dr. Rick Sow MD Work Phone: 7(440)580-837778 [place] [address] 03-26-2025 08:45-0400 Body mass index (BMI) [Ratio] 42.6 kg/m2 Dr. Rick Sow MD Work Phone: 5(545)665-937778 [place] [address] 03-26-2025 08:45-0400 Body temperature 97.4 [degF] Dr. Rick Sow MD Work Phone: 3(403)546-269578 [place] [address] 03-26-2025 08:45-0400 Body weight 146.[address] Rick Sow MD Work Phone: 1(349)208-603078 [place] [address] 03-26-2025 08:45-0400 Diastolic blood pressure 73 mm[Hg] Dr. Rick Sow MD Work Phone: 4(014)572-289378 [place] [address] 03-26-2025 08:45-0400 Heart rate 57 /min Dr. Rick Sow MD Work Phone: 1(433)389-244578 [place] [address] 03-26-2025 08:45-0400 Respiratory rate 18 /min Dr. Rick Sow MD Work Phone: 2(169)109-156178 [place] [address] 03-26-2025 08:45-0400 SaO2% (BldA) [Mass fraction] 97 % Dr. Rick Sow MD Work Phone: 5(003)906-531578 [place] [address] 03-26-2025 08:45-0400 Systolic blood pressure 135 mm[Hg] Dr. Rick Sow MD Work Phone: 5(470)123-660878 [place] [address] 02-17-2025 08:05-0400 Body mass index (BMI) [Ratio] 43.2 kg/m2 Dr. Rick Sow MD Work Phone: 2(789)725-994778 [place] [address] 02-17-2025 08:05-0400 Body temperature 97 [degF] Dr. Rick Sow MD Work Phone: 9(353)658-665378 [place] [address] 02-17-2025 08:05-0400 Body weight 148.[address] Rick Sow MD Work Phone: 1(992)204-470978 [place] [address] 02-17-2025 08:05-0400 Diastolic blood pressure 74 mm[Hg] Dr. Rick Sow MD Work Phone: 9(552)811-979178 [place] [address] 02-17-2025 08:05-0400 Heart rate 60 /min Dr. Rick Sow MD Work Phone: 0(731)691-566278 [place] [address] 02-17-2025 08:05-0400 Respiratory rate 18 /min Dr. Rick Sow MD Work Phone: 5(965)724-744878 [place] [address] 02-17-2025 08:05-0400 SaO2% (BldA) [Mass fraction] 93 % Dr. Rick Sow MD Work Phone: 8(942)300-417178 [place] [address] 02-17-2025 08:05-0400 Systolic blood pressure 146 mm[Hg] Dr. Rick Sow MD Work Phone: 8(619)102-884078 [place] [address] 01-14-2025 10:06-0400 Body height 185.[address] Rick Sow MD Work Phone: 3(378)575-075278 [place] [address] 01-14-2025 10:06-0400 Body mass index (BMI) [Ratio] 42.7 kg/m2 Dr. Rick Sow MD Work Phone: 2(678)140-900878 [place] [address] 01-14-2025 10:06-0400 Body weight 146.[address] Rick Sow MD Work Phone: 4(577)097-582578 [place] [address] 01-14-2025 10:06-0400 Diastolic blood pressure 68 mm[Hg] Dr. Rick Sow MD Work Phone: 3(081)586-671978 [place] [address] 01-14-2025 10:06-0400 Heart rate 63 /min Dr. Rick Sow MD Work Phone: 7(746)078-096278 [place] [address] 01-14-2025 10:06-0400 Respiratory rate 18 /min Dr. Rick Sow MD Work Phone: 9(329)754-718978 [place] [address] 01-14-2025 10:06-0400 Systolic blood pressure 133 mm[Hg] Dr. Rick Sow MD Work Phone: 9(977)235-542478 [place] [address] 11-16-2024 07:34-0400 Body height 185.[address] Rick Sow MD Work Phone: 5(778)229-377178 [place] [address] 11-13-2024 08:04-0400 Body mass index (BMI) [Ratio] 43.1 kg/m2 Dr. Rick Sow MD Work Phone: 6(161)553-883878 [place] [address] 11-13-2024 08:04-0400 Body temperature 97.5 [degF] Dr. Rick Sow MD Work Phone: 2(161)884-445078 [place] [address] 11-13-2024 08:04-0400 Body weight 148.[address] Rick Sow MD Work Phone: 1(935)949-125778 [place] [address] 11-13-2024 08:04-0400 Diastolic blood pressure 82 mm[Hg] Dr. Rick Sow MD Work Phone: 9(718)256-473678 [place] [address] 11-13-2024 08:04-0400 Heart rate 62 /min Dr. Rick oSw MD Work Phone: 6(384)026-369678 [place] [address] 11-13-2024 08:04-0400 Inhaled oxygen flow rate 2 L/min Dr. Rick Sow MD Work Phone: [facility] 11-13-2024 08:04-0400 Respiratory rate 20 /min Dr. Rick Sow MD Work Phone: [facility] 11-13-2024 08:04-0400 SaO2% (BldA) [Mass fraction] 94 % Dr. Rick Sow MD Work Phone: [facility] 11-13-2024 08:04-0400 Systolic blood pressure 143 mm[Hg] Dr. Rick Sow MD Work Phone: 3(469)249-747478 [place] [address] 10-28-2024 12:38-0400 Body height 215.[address] Rick Sow MD Work Phone: 2(074)255-455878 [place] [address] 10-28-2024 12:38-0400 Body weight 145.[address] Rick Sow MD Work Phone: 9(906)703-731378 [place] [address] 10-28-2024 12:38-0400 Heart rate 79 /min Dr. Rick Sow MD Work Phone: 2(222)762-834478 [place] [address] 10-28-2024 12:38-0400 Inhaled oxygen flow rate 2 L/min Dr. Rick Swo MD Work Phone: [facility] 10-28-2024 12:38-0400 SaO2% (BldA) [Mass fraction] 92 % Dr. Rick Sow MD Work Phone: [facility] 10-05-2024 11:46-0400 Body mass index (BMI) [Ratio] 44.21 kg/m2 Farzana Kelly PA-C Work Phone: [facility] 10-05-2024 11:46-0400 Body temperature 98.01 [degF] Farzana Kelly PA-C Work Phone: [facility] 10-05-2024 11:46-0400 Body weight 147.87 kg Farzana Kelly PA-C Work Phone: [facility] 10-05-2024 11:46-0400 Diastolic blood pressure 82 mm[Hg] Farzana Kelly PA-C Work Phone: [facility] 10-05-2024 11:46-0400 Heart rate 86 /min Farzana Kelly PA-C Work Phone: [facility] 10-05-2024 11:46-0400 Respiratory rate 18 /min Farzana Kelly PA-C Work Phone: [facility] 10-05-2024 11:46-0400 SaO2% (BldA) [Mass fraction] 95 % Farzana Kelly PA-C Work Phone: [facility] 10-05-2024 11:46-0400 Systolic blood pressure 118 mm[Hg] Farzana Kelly PA-C Work Phone: [facility] 09-24-2024 09:56-0400 Body mass index (BMI) [Ratio] 42.7 kg/m2 Dr. Rick Sow MD Work Phone: [facility] 09-24-2024 09:56-0400 Body weight 146.[address] Rick Sow MD Work Phone: 3(467)678-306530 [place] [address] 09-24-2024 09:56-0400 Diastolic blood pressure 69 mm[Hg] Dr. Rick Sow MD Work Phone: [facility] 09-24-2024 09:56-0400 Heart rate 62 /min Dr. Rick Sow MD Work Phone: [facility] 09-24-2024 09:56-0400 Inhaled oxygen flow rate 2 L/min Dr. Rick Sow MD Work Phone: [facility] 09-24-2024 09:56-0400 Respiratory rate 18 /min Dr. Rick Sow MD Work Phone: [facility] 09-24-2024 09:56-0400 SaO2% (BldA) [Mass fraction] 93 % Dr. Rick Sow MD Work Phone: 1(552)139-924330 [place] [address] 09-24-2024 09:56-0400 Systolic blood pressure 121 mm[Hg] Dr. Rick Sow MD Work Phone: 8(548)613-562678 [place] [address] 09-23-2024 08:06-0400 Body height 185.[address] Rick Sow MD Work Phone: 2(126)829-430778 [place] [address] 09-23-2024 08:06-0400 Body mass index (BMI) [Ratio] 42.6 kg/m2 Dr. Rick Sow MD Work Phone: 6(440)503-181678 [place] [address] 09-23-2024 08:06-0400 Body temperature 97.5 [degF] Dr. Rick Sow MD Work Phone: 4(619)817-673678 [place] [address] 09-23-2024 08:06-0400 Body weight 146.[address] Rick Sow MD Work Phone: 2(697)171-115478 [place] [address] 09-23-2024 08:06-0400 Diastolic blood pressure 84 mm[Hg] Dr. Rick Sow MD Work Phone: 0(755)526-191278 [place] [address] 09-23-2024 08:06-0400 Heart rate 73 /min Dr. Rick Sow MD Work Phone: 4(449)370-515378 [place] [address] 09-23-2024 08:06-0400 Inhaled oxygen flow rate 2 L/min Dr. Rick Sow MD Work Phone: 1(986)695-981978 [place] [address] 09-23-2024 08:06-0400 Respiratory rate 20 /min Dr. Rick Sow MD Work Phone: 4(651)800-294378 [place] [address] 09-23-2024 08:06-0400 SaO2% (BldA) [Mass fraction] 97 % Dr. Rick Sow MD Work Phone: 1(659)690-918578 [place] [address] 09-23-2024 08:06-0400 Systolic blood pressure 145 mm[Hg] Dr. Rick Sow MD Work Phone: 4(413)889-153078 [place] [address] 08-27-2024 12:19-0500 Body mass index (BMI) [Ratio] 43.81 kg/m2 Farzana Kelly PA-C Work Phone: [facility] 08-27-2024 12:19-0500 Body temperature 97.11 [degF] Farzanarebeca Kelly PA-C Work Phone: [facility] 08-27-2024 12:19-0500 Body weight 146.51 kg Farzana Kelly PA-C Work Phone: [facility] 08-27-2024 12:19-0500 Diastolic blood pressure 70 mm[Hg] Farzanarebeca Kelly PA-C Work Phone: [facility] 08-27-2024 12:19-0500 Heart rate 62 /min Farzana Kelly PA-C Work Phone: [facility] 08-27-2024 12:19-0500 Respiratory rate 20 /min Farzana Kelly PA-C Work Phone: [facility] 08-27-2024 12:19-0500 SaO2% (BldA) [Mass fraction] 100 % Farzanarebeca Kelly PA-C Work Phone: [facility] 08-27-2024 12:19-0500 Systolic blood pressure 138 mm[Hg] Farzana Kelly PA-C Work Phone: [facility] 08-19-2024 15:00-0500 Inhaled oxygen flow rate 2 L/min Dr. Rick Sow MD Work Phone: [facility] 08-19-2024 14:42-0500 Diastolic blood pressure 81 mm[Hg] Dr. Rick Sow MD Work Phone: [facility] 08-19-2024 14:42-0500 Heart rate 76 /min Dr. Rick Sow MD Work Phone: [facility] 08-19-2024 14:42-0500 Respiratory rate 18 /min Dr. Rick Sow MD Work Phone: [facility] 08-19-2024 14:42-0500 SaO2% (BldA) [Mass fraction] 95 % Dr. Rick Sow MD Work Phone: 4(316)650-574130 [place] [address] 08-19-2024 14:42-0500 Systolic blood pressure 154 mm[Hg] Dr. Rick Sow MD Work Phone: 4(393)126-942730 [place] [address] 08-19-2024 10:00-0500 Body temperature 98.1 [degF] Dr. Rick Sow MD Work Phone: 9(779)684-656130 [place] [address] 08-19-2024 04:27-0500 Body mass index (BMI) [Ratio] 45 kg/m2 Dr. Rick Sow MD Work Phone: 0(126)855-640030 [place] [address] 08-19-2024 04:27-0500 Body weight 154.[address] Rick Sow MD Work Phone: 5(272)854-399830 [place] [address] 08-17-2024 23:56-0500 Inhaled oxygen concentration 50 % Dr. Rick Sow MD Work Phone: 7(071)762-569730 [place] [address] 08-15-2024 13:51-0500 Body mass index (BMI) [Ratio] 45.69 kg/m2 Jhon Nava MD Work Phone: [facility] 08-15-2024 13:51-0500 Body temperature 101.8 [degF] Jhon Nava MD Work Phone: [facility] 08-15-2024 13:51-0500 Body weight 152.8 kg Jhon Nava MD Work Phone: [facility] 08-15-2024 13:51-0500 Diastolic blood pressure 76 mm[Hg] Jhon Nava MD Work Phone: [facility] 08-15-2024 13:51-0500 Heart rate 98 /min Jhon Nava MD Work Phone: [facility] 08-15-2024 13:51-0500 Respiratory rate 22 /min Jhon Nava MD Work Phone: [facility] 08-15-2024 13:51-0500 SaO2% (BldA) [Mass fraction] 92 % Jhon Nava MD Work Phone: [facility] 08-15-2024 13:51-0500 Systolic blood pressure 194 mm[Hg] Jhon Nava MD Work Phone: [facility] 06-25-2024 10:01-0500 Body mass index (BMI) [Ratio] 46.52 kg/m2 Farzana Kelly PA-C Work Phone: [facility] 06-25-2024 10:01-0500 Body temperature 97.39 [degF] Farzana Kelly PA-C Work Phone: [facility] 06-25-2024 10:01-0500 Body weight 155.58 kg Farzana Kelly PA-C Work Phone: [facility] 06-25-2024 10:01-0500 Diastolic blood pressure 80 mm[Hg] Farzana Kelly PA-C Work Phone: [facility] 06-25-2024 10:01-0500 Heart rate 71 /min Farzana Kelly PA-C Work Phone: [facility] 06-25-2024 10:01-0500 Respiratory rate 18 /min Farzana Kelly PA-C Work Phone: [facility] 06-25-2024 10:01-0500 SaO2% (BldA) [Mass fraction] 96 % Farzana Kelly PA-C Work Phone: [facility] 06-25-2024 10:01-0500 Systolic blood pressure 130 mm[Hg] Farzana HEWITT-C Work Phone: [facility] 04-07-2024 10:51-0400 Body height 182.9 cm Rick Sow MD Work Phone: [facility] 04-07-2024 10:51-0400 Body mass index (BMI) [Ratio] 46.11 kg/m2 Rick Sow MD Work Phone: [facility] 04-07-2024 10:51-0400 Body weight 154.22 kg Rick Sow MD Work Phone: [facility] 04-07-2024 10:51-0400 Diastolic blood pressure 60 mm[Hg] Rick Sow MD Work Phone: [facility] 04-07-2024 10:51-0400 Heart rate 53 /min Rick Sow MD Work Phone: [facility] 04-07-2024 10:51-0400 Respiratory rate 16 /min Rick Sow MD Work Phone: [facility] 04-07-2024 10:51-0400 Systolic blood pressure 124 mm[Hg] Rick Sow MD Work Phone: [facility] 10-01-2023 10:22-0400 Body temperature 97.39 [degF] Farzana Kelly PA-C Work Phone: [facility] 10-01-2023 10:22-0400 Body weight 150.14 kg Farzana Kelly PA-C Work Phone: [facility] 10-01-2023 10:22-0400 Diastolic blood pressure 70 mm[Hg] Farzana Kelly PA-C Work Phone: [facility] 10-01-2023 10:22-0400 Heart rate 62 /min Farzana Kelly PA-C Work Phone: [facility] 10-01-2023 10:22-0400 Respiratory rate 18 /min Farzana Kelly PA-C Work Phone: [facility] 10-01-2023 10:22-0400 Systolic blood pressure 118 mm[Hg] Farzanarebeca Kelly PA-C Work Phone: [facility] 07-11-2023 09:06-0500 Body temperature 97.8 [degF] Dr. Kishore De Anda Work Phone: [facility] 07-11-2023 09:06-0500 Diastolic blood pressure 74 mm[Hg] Dr. Kishore De Anda Work Phone: [facility] 07-11-2023 09:06-0500 Heart rate 61 /min Dr. Kishore De Anda Work Phone: [facility] 07-11-2023 09:06-0500 Respiratory rate 18 /min Dr. Kishore De Anda Work Phone: [facility] 07-11-2023 09:06-0500 SaO2% (BldA) [Mass fraction] 95 % Dr. Kishore De Anda Work Phone: [facility] 07-11-2023 09:06-0500 Systolic blood pressure 114 mm[Hg] Dr. Kishore De Anda Work Phone: [facility] 07-11-2023 08:55-0500 Inhaled oxygen flow rate 2 L/min Dr. Kishore De Anda Work Phone: [facility] 07-11-2023 07:55-0500 Body height 185.[address] Kishore De Anda Work Phone: [facility] 07-11-2023 07:55-0500 Body mass index (BMI) [Ratio] 42.7 kg/m2 Dr. Kishore De Anda Work Phone: [facility] 07-11-2023 07:55-0500 Body weight [address] Kishore De Anda Work Phone: [facility] 04-02-2023 09:16-0400 Body height 185 cm Rick Sow MD Work Phone: [facility] 04-02-2023 09:16-0400 Body weight 148.33 kg Rick Sow MD Work Phone: [facility] 04-02-2023 09:16-0400 Diastolic blood pressure 80 mm[Hg] Rick Sow MD Work Phone: [facility] 04-02-2023 09:16-0400 Heart rate 67 /min Rick Sow MD Work Phone: [facility] 04-02-2023 09:16-0400 Respiratory rate 16 /min Rick Sow MD Work Phone: [facility] 04-02-2023 09:16-0400 SaO2% (BldA) [Mass fraction] 95 % Rick Sow MD Work Phone: [facility] 04-02-2023 09:16-0400 Systolic blood pressure 128 mm[Hg] Rick Sow MD Work Phone: [facility] 09-25-2022 07:58-0400 Body weight 146.97 kg Farzana Kelly PA-C Work Phone: [facility] 09-25-2022 07:58-0400 Diastolic blood pressure 78 mm[Hg] Farzana Kelly PA-C Work Phone: [facility] 09-25-2022 07:58-0400 Heart rate 52 /min Farzana Kelly PA-C Work Phone: [facility] 09-25-2022 07:58-0400 Respiratory rate 18 /min Farzana Kelly PA-C Work Phone: [facility] 09-25-2022 07:58-0400 SaO2% (BldA) [Mass fraction] 98 % Farzana Kelly PA-C Work Phone: [facility] 09-25-2022 07:58-0400 Systolic blood pressure 136 mm[Hg] Farzana Kelly PA-C Work Phone: [facility] 03-28-2022 08:10-0400 Body height 182.9 cm Rick Sow MD Work Phone: [facility] 03-28-2022 08:10-0400 Body weight 149.69 kg Rick Sow MD Work Phone: [facility] 03-28-2022 08:10-0400 Diastolic blood pressure 78 mm[Hg] Rick Sow MD Work Phone: [facility] 03-28-2022 08:10-0400 Heart rate 68 /min Rick Sow MD Work Phone: [facility] 03-28-2022 08:10-0400 Respiratory rate 16 /min Rick Sow MD Work Phone: [facility] 03-28-2022 08:10-0400 Systolic blood pressure 138 mm[Hg] Rick Sow MD Work Phone: [facility] 02-26-2022 10:52-0400 Body temperature 98.71 [degF] Miladys Juan Carlos [employer] Work Phone: [facility] 02-26-2022 10:52-0400 Body weight 150.23 kg Miladys Juan Carlos [employer] Work Phone: [facility] 02-26-2022 10:52-0400 Diastolic blood pressure 82 mm[Hg] Miladys Juan Carlos [employer] Work Phone: [facility] 02-26-2022 10:52-0400 Heart rate 76 /min Miladys Juan Carlos [employer] Work Phone: [facility] 02-26-2022 10:52-0400 Respiratory rate 20 /min Miladys Juan Carlos [employer] Work Phone: [facility] 02-26-2022 10:52-0400 SaO2% (BldA) [Mass fraction] 96 % Miladys Juan Carlos [employer] Work Phone: [facility] 02-26-2022 10:52-0400 Systolic blood pressure 142 mm[Hg] Miladys Juan Carlos [employer] Work Phone: [facility] 12-18-2021 11:04-0400 Body height 185.[address] [facility] 12-18-2021 11:04-0400 Body weight 144.[address] [facility] 11-29-2021 13:09-0400 Body weight 151.5 kg Rick Sow MD Work Phone: [facility] 11-29-2021 13:09-0400 Diastolic blood pressure 80 mm[Hg] Rick Sow MD Work Phone: [facility] 11-29-2021 13:09-0400 Heart rate 78 /min Rick Sow MD Work Phone: [facility] 11-29-2021 13:09-0400 Respiratory rate 14 /min Rick Sow MD Work Phone: [facility] 11-29-2021 13:09-0400 Systolic blood pressure 138 mm[Hg] Rick Sow MD Work Phone: [facility] Encounters Encounter Date Encounter Type Care Provider Facility Start: 05-04-2025 ambulatory Юлия Bermudez NP Fac ility:[facility] Start: 04-29-2025 End: 04-29-2025 ambulatory RICK SOW Facility:[facility] Start: 04-15-2025 End: 04-15-2025 Patient encounter procedure Raquel Penny [employer]C -[facility] Work Phone: Start: 04-15-2025 End: 04-15-[address] Rick Sow MD Work Phone: -[facility] Start: 04-08-2025 Patient encounter procedure RICK SOW [facility] Start: 04-08-2025 End: 04-08-2025 ambulatory RICK SOW Facility:[facility] Start: 04-05-2025 End: 04-05-[address] Rick Sow MD Work Phone: -[facility] Start: 04-05-2025 End: 04-05-2025 Patient encounter procedure Юлия Bermudez [employer] SUPER[employer]OR-C -[facility] Work Phone: Start: 04-05-2025 End: 04-05-2025 ambulatory Юлия Bermudez NP Facility:[facility] Start: 04-02-2025 End: 04-02-2025 ambulatory FARZANA KELLY Facility:[facility] Start: 03-26-2025 End: 03-26-2025 Chart abstracting Rick Sow MD Work Phone: [facility] Comment on above: Outside Pulmonary Start: 03-26-2025 End: 03-26-2025 Patient encounter procedure Юлия Bermudez [employer] SUPER[employer]OR-C -[facility] Work Phone: Start: 03-26-2025 End: 03-26-[address] Rick Sow MD Work Phone: -[facility] Start: 03-17-2025 End: 03-17-2025 Chart abstracting Rick Sow MD Work Phone: [facility] Comment on above: Abstract (DM Eye vis it) Start: 03-03-2025 End: 03-03-[address] Rick Sow MD Work Phone: -Cat Scan [facility] Start: 03-03-2025 End: 03-03-2025 Patient encounter procedure Юлия Bermudez [employer] SUPER[employer]OR-C -Cat Scan [facility] Work Phone: Start: 03-03-2025 End: 03-03-2025 ambulatory Юлия Bermudez [employer] Facility:[facility] Start: 02-17-2025 End: 02-17-2025 Patient encounter procedure Юлия Bermudez [employer] SUPER[employer]-C -[facility] Work Phone: Start: 02-17-2025 End: 02-17-[address] Rick Sow MD Work Phone: -[facility] Start: 01-29-2025 Non-patient / Non-visit Dr. Melinda mann MD -[facility] Work Phone: Start: 01-29-2025 End: 01-29-[address] Rick Sow MD Work Phone: -Pulmonary Services/Neurology Start: 01-29-2025 End: 01-29-2025 Patient encounter procedure Raquel Penny NP-C -Pulmonary Services/Neurology Work Phone: Start: 01-29-2025 End: 01-29-2025 ambulatory Rick Sow Facility:[facility] Start: 01-25-2025 End: 01-25-2025 Chart abstracting Rick Sow MD Work Phone: [facility] Comment on above: Outside Svlj-Mww-BUY Ordered Start: 01-25-2025 End: 01-25-[address] Rick Sow MD Work Phone: -Laboratory Start: 01-25-2025 End: 01-25-2025 Patient encounter procedure Raquel Penny NP-C -Laboratory Work Phone: Start: 01-25-2025 End: 01-25-2025 ambulatory Rick Sow Facility:[facility] Start: 01-14-2025 End: 01-14-2025 Chart abstracting Rick Sow MD Work Phone: [facility] Comment on above: Outside Cardiology Start: 01-14-2025 End: 01-14-2025 Patient encounter procedure Raquel Penny [employer] SUPER[employer]OR-C -[facility] Work Phone: Start: 01-14-2025 End: 01-14-[address] Rick Sow MD Work Phone: -[facility] Start: 12-15-2024 End: 12-15-[address] Rick Sow MD Work Phone: [facility] Work Phone: Start: 12-15-2024 End: 12-15-2024 Patient encounter procedure Юлия Bermudez [employer]PER[employer]-C -Sleep Lab Work Phone: Start: 12-15-2024 End: 12-15-2024 ambulatory Юлия Bermudez NP Facility:[facility] Start: 11-13-2024 End: 11-13-2024 Patient encounter procedure Юлия Bermudez [employer]-C -[facility] Work Phone: Start: 11-13-2024 End: 11-13-2024 ambulatory Юлия Bermudez NP Facility:[facility] Start: 11-05-2024 End: 11-05-2024 ambulatory RICK SOW Facility:[facility] Start: 11-04-2024 End: 11-04-2024 ambulatory Farzana Kelly PA-C Work Phone: [facility] Comment on above: Itching Start: 11-04-2024 End: 11-04-2024 Chart abstracting Rick Sow MD Work Phone: [facility] Comment on above: Outside Imaging (CT) Start: 11-02-2024 End: 11-02-[address] Rick Sow MD Work Phone: [facility] Work Phone: Start: 11-02-2024 End: 11-02-2024 Patient encounter procedure Юлия Bermudez [employer] SUPER[employer]OR-C -Cat Scan, [facility] Work Phone: Start: 11-02-2024 End: 11-02-2024 ambulatory Юлия Bermudez [employer] Facility:[facility] Start: 10-30-2024 End: 10-30-2024 Patient encounter procedure Юлия Bermudez [employer] SUPER[employer]OR-C -Pulmonary Services/Neurology Work Phone: Start: 10-29-2024 End: 10-30-2024 ambulatory Юлия Bermudez [employer] Facility:[facility] Start: 10-29-2024 Non-patient / Non-visit Dr. Edd bond DO -[facility] Start: 10-28-2024 End: 10-28-[address] Rick Sow MD Work Phone: [facility] Work Phone: Start: 10-28-2024 End: 10-28-2024 Patient encounter procedure Юлия Bermudez [employer] SUPER[employer]-C -Pulmonary Services/Neurology Work Phone: Start: 10-28-2024 End: 10-28-2024 ambulatory Юлия Bermudez [employer] Facility:[facility] Start: 10-21-2024 End: 10-21-2024 Chart abstracting Red Guerin MA [facility] [place] Comment on above: Stress Test (Outside facility ) Start: 10-19-2024 ambulatory Rick Sow Facility :[facility] Start: 10-19-2024 Non-patient / Non-visit Dr. Melinda mann MD -[facility] Start: 10-16-2024 End: 10-16-[address] Rick Sow MD Work Phone: [facility] Work Phone: Start: 10-16-2024 End: 10-16-[address] Melinda Cifuentes MD -Cardiovascular Services Work Phone: Start: 10-16-2024 End: 10-16-2024 ambulatory Rick Sow Facility:[facility] Start: 10-13-2024 End: 10-13-2024 ambulatory Rick Sow MD Work Phone: [facility] Comment on above: Nuclear stress test this Saturday10/16/24 Start: 10-09-2024 End: 10-09-2024 Refill Farzana Kelly PA-C Work Phone: [facility] Comment on above: Refill Request Start: 10-05-2024 End: 10-05-2024 ambulatory FARZANA KELLY Facility:[facility] Start: 10-05-2024 End: 10-05-2024 Office outpatient visit 25 minutes Farzana Kelly PA-C Work Phone: [facility] Comment on above: Type 2 diabetes kiko itus without complication, without long- term current use of insulin (HCC) (Primary Dx); Essential hypertension, benign; Hyperlipidemia, mixed; Uncontrolled type 2 diabetes mellitus with hyperglycemia (HCC); 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 Melinda Cifuentes MD -[facility] Work Phone: Start: 09-24-2024 End: 09-24-2024 ambulatory Rick Sow Facility:[facility] Start: 09-23-2024 End: 09-23-2024 Patient encounter procedure Юлия KING -[facility] Work Phone: Start: 09-23-2024 End: 09-23-2024 ambulatory Rick Sow Facility:[facility] Start: 09-16-2024 End: 09-16-2024 ambulatory Farzana Kelly PA-C Work Phone: [facility] Comment on above: Potassium Chloride Start: 09-07-2024 End: 09-07-2024 ambulatory Tarik Klein RN Work Phone: [employer] Start: 09-07-2024 End: 09-07-2024 Telephone follow-up Tarik Klein RN Work Phone: [facility] [employer] Comment on above: Transition Of Care ( Follow up day 19) Weekly phone contact (Recurring) for Transitional Care Management Start: 09-04-2024 End: 09-04-2024 Follow-up encounter Farzana Kelly PA-C Work Phone: [facility] Marylou Rodrigues Start: 09-03-2024 End: 09-03-2024 ambulatory Farzana Kelly PA-C Work Phone: [facility] Comment on above: Blood pressure readi ngs Start: 08-28-2024 End: 08-28-2024 Follow-up encounter Farzana Kelly PA-C Work Phone: [facility] Comment on above: Hyponatremia (Primar y Dx); Essential hypertension, benign Start: 08-27-2024 End: 08-27-2024 ambulatory RICK SOW Facility:[facility] Start: 08-27-2024 End: 08-27-2024 Patient encounter procedure Farzana Kelly PA-C Work Phone: [facility] Comment on above: Hospital discharge f ollow-up (Primary Dx); Influenza A; Essential hypertension, benign; Syncope, unspecified syncope type; Chronic obstructive pulmonary disease with acute exacerbation (HCC); ELEN (acute kidney injury) (HCC) Start: 08-20-2024 End: 08-20-2024 ambulatory Alesia Shrestha RN Work Phone: [employer] Start: 08-20-2024 End: 08-20-2024 Chart abstracting Rick Sow MD Work Phone: [facility] Comment on above: D/C Summary Events Initial phone contac t for Transitional Care Management Start: 08-19-2024 Non-patient / Non-visit Dr. Mack An MD -[facility] Work Phone: Start: 08-19-2024 End: 08-19-2024 Chart abstracting Rick Sow MD Work Phone: [facility] [place] Comment on above: Outside Pulm Start: 08-18-2024 End: 08-18-2024 Chart abstracting Rick Sow MD Work Phone: [facility] [place] Comment on above: Infectious Disease C onsult Start: 08-18-2024 Non-patient / Non-visit Dr. Mack An MD -[facility] Work Phone: Start: 08-17-2024 Non-patient / Non-visit Dr. Edd bond DO -[facility] Start: 08-17-2024 End: 08-17-2024 Chart abstracting Red Guerin MA [facility] [place] Comment on above: Hospital F/U ([facility] ) Start: 08-17-2024 ambulatory Rick Sow Facility :[facility] Start: 08-17-2024 Non-patient / Non-visit Dr. Rod ROJAS -[facility] Start: 08-17-2024 Non-patient / Non-visit Dr. Mack An MD -[facility] Work Phone: Start: 08-16-2024 Non-patient / Non-visit Dr. Mack An MD -[facility] Work Phone: Start: 08-15-2024 ambulatory Mack An Facility: [facility] Start: 08-15-2024 End: 08-19-2024 Evaluation and management of inpatient Dr. Mack An MD -Medical [facility] 2 Work Phone: Start: 08-15-2024 End: 08-15-2024 ambulatory RICK SOW Facility:[facility] Start: 08-15-2024 End: 08-15-2024 Office outpatient visit 25 minutes Jhon Nava MD Work Phone: [facility] Comment on above: Influenza A (Primary Dx); Influenza-like illness Start: 07-06-2024 End: 07-16-2024 Telephone encounter Rick Sow MD Work Phone: [facility] [place] Comment on above: Patient Question; Marcelina enriquez Update Start: 06-25-2024 End: 06-25-2024 ambulatory FARZANA KELLY Facility:[facility] Start: 06-25-2024 End: 06-25-2024 Patient encounter procedure Farzana Kelly PA-C Work Phone: [facility] Comment on above: Neck sprain, initial encounter (Primary Dx); Neck pain; Neck muscle spasm Start: 06-24-2024 End: 06-24-2024 ambulatory Rick Sow MD Work Phone: [facility] Comment on above: Neck Pain Start: 05-11-2024 End: 05-11-2024 ambulatory SELF Facility:[facility] Start: 05-11-2024 End: 05-11-2024 Nursing evaluation of patient and report Mi Nurse Work Phone: [facility] Comment on above: Encounter for immuni zation (Primary Dx) Start: 04-24-2024 End: 04-24-2024 ambulatory Immunization Clinic Nurse [place] Work Phone: [facility] [place] Start: 04-24-2024 End: 04-24-2024 Patient encounter procedure Immunization Clinic Nurse [place] Work Phone: [facility] [place] Start: 04-07-2024 End: 04-07-2024 Ophthalmic examination and evaluation Rick Sow MD Work Phone: [facility] Start: 04-07-2024 End: 04-07-2024 Patient encounter procedure Rick Sow MD Work Phone: [facility] Comment on above: Medicare annual well [...] Chart abstracting Rick cano MD Work Phone: [facility] [place] Comment on above: outside opthomology Start: 12-05-2023 Refill Rick aguilar MD Work Phone: [facility] Comment on above: Refill Request Start: 10-30-2023 End: 10-30-2023 Nursing evaluation of patient and report Tanner Eric RN Work Phone: Endocrinology Comment on above: Uncontrolled type 2 diabetes mellitus with hyperglycemia (HCC); 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) Start: 10-02-2023 ambulatory Farzana guan PA-C Work Phone: [facility] Comment on above: Medication Start: 10-02-2023 Telephone encounter Farzana shahid PA-[employer] Work Phone: [facility] Comment on above: Patient Question Start: 10-01-2023 End: 10-01-2023 Patient encounter procedure Farzana Kelly PA-C Work Phone: [facility] [place] Comment on above: Type 2 diabetes kiko itus without complication, without long- term current use of insulin (HCC) (Primary Dx); Uncontrolled type 2 diabetes mellitus with hyperglycemia (HCC); Rosacea; Hyperlipidemia, mixed; Essential hypertension, benign; 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 Brianna De Anda Work Phone: [facility] Start: 07-11-2023 End: 07-11-2023 Admission to same day surgery center Dr. Kishore De Anda Work Phone: [facility] Work Phone: Start: 07-11-2023 End: 07-11-[address] Kishore De Anda Work Phone: [facility] Work Phone: Start: 06-11-2023 Telephone encounter Red Guerin MA [facility] [place] Start: 05-31-2023 End: 05-31-2023 ambulatory Immunization Clinic Nurse [facility] Work Phone: [facility] [place] Start: 05-24-2023 End: 05-24-2023 ambulatory Immunization [facility] Start: 05-17-2023 Telephone encounter Rick Sow MD Work Phone: [facility] Comment on above: Medication Problem ( Cost is too high) Start: 05-07-2023 Refill Farzana Kendrick on PA-C Work Phone: [facility] Comment on above: Refill Request Start: 05-02-2023 Telephone encounter Rick Sow MD Work Phone: [facility] Comment on above: Patient Request Start: 04-30-2023 Telephone encounter Rick Sow MD Work Phone: [facility] Comment on above: Opened In Error Start: 04-29-2023 Refill [facility]ilar MD [facility] Comment on above: Refill Request Start: 04-11-2023 Telephone encounter Rick Sow MD Work Phone: [facility] Comment on above: Results Start: 04-10-2023 End: 04-10-2023 Subsequent hospital visit by physician Kels[facility] (I-Stat) Work Phone: Cat Scan Comment on above: Family history of pa ncreatic cancer [Z80.0] Start: 04-08-2023 Telephone encounter Rick Sow MD Work Phone: [facility] Comment on above: Results Start: 04-04-2023 Telephone encounter Rick Sow MD Work Phone: [facility] Comment on above: Medication Problem Start: 04-03-2023 Telephone encounter Rick Sow MD Work Phone: [facility] Comment on above: Patient Request Start: 04-02-2023 End: 04-02-2023 Ophthalmic examination and evaluation Rick Sow MD Work Phone: [facility] Work Phone: Start: 04-02-2023 End: 04-02-2023 Patient encounter procedure Rick Sow MD Work Phone: [facility] Comment on above: Medicare annual well ness visit, subsequent (Primary Dx); Type 2 diabetes mellitus without complication, without long-term current use of insulin (HCC); Diabetic eye exam (HCC); Proteinuria due to type 2 diabetes [...] Chart abstracting Rick cano MD Work Phone: [facility] Comment on above: Consult Start: 09-25-2022 End: 09-25-2022 Ophthalmic examination and evaluation Farzana Kelly PA-C Work Phone: [facility] Start: 09-25-2022 End: 09-25-2022 Patient encounter procedure Farzana Kelly PA-C Work Phone: [facility] [place] Comment on above: Type 2 diabetes kiko itus without complication, without long- term current use of insulin (HCC) (Primary Dx); Uncontrolled type 2 diabetes mellitus with hyperglycemia (HCC); Hyperlipidemia with target LDL less than 100; Essential hypertension, benign; 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); Hyperlipidemia, mixed; Diabetic eye exam (HCC); Morbid obesity with BMI of 40.0-44.9, adult (HCC); Prostate disorder; Encounter for immunization Start: 07-18-2022 Telephone encounter Rick Sow MD Work Phone: [facility] [place] Comment on above: Patient Update Start: 05-16-2022 End: 05-16-2022 ambulatory Mi Nurse Work Phone: [facility] [place] Start: 05-07-2022 Telephone encounter Rick Sow MD Work Phone: [facility] [place] Comment on above: Medication Question Start: 04-26-2022 Refill Rick aguilar MD Work Phone: [facility] [place] Comment on above: Refill Request Start: 04-23-2022 Refill Rick aguilar MD Work Phone: [facility] Comment on above: Refill Request Start: 04-03-2022 Telephone encounter Rick Sow MD Work Phone: [facility] [place] Comment on above: Insurance Authorizat ion Start: 04-02-2022 Telephone encounter Rick Sow MD Work Phone: [facility] Comment on above: Refill Request Start: 03-30-2022 Telephone encounter Rick Sow MD Work Phone: [facility] [place] Comment on above: Medication Problem Start: 03-29-2022 Ophthalmic examinati on and evaluation Rick Sow MD Work Phone: [facility] Start: 03-28-2022 Telephone encounter Rick Sow MD Work Phone: [facility] [place] Comment on above: Results Start: 03-28-2022 End: 03-28-2022 Subsequent hospital visit by physician [facility] Work Phone: Radiology Comment on above: Foot pain, left [M79 .672] Start: 03-28-2022 End: 03-28-2022 Patient encounter procedure Rick Sow MD Work Phone: [facility] Work Phone: Comment on above: [...] 03-27-2022 Refill Rick aguilar MD Work Phone: [facility] Comment on above: Refill Request Start: 02-26-2022 End: 02-26-2022 Patient encounter procedure Miladys Juan Carlos SIMSROTOR WINDER Work Phone: [facility] Comment on above: Suspected COVID-19 v irus infection (Primary Dx); Upper respiratory symptom; Body aches; Rash Start: 12-18-2021 End: 12-18-[address] Nutrition Therapy Comment on above: Patient Education; A ssessment Start: 11-29-2021 End: 11-29-2021 Patient encounter procedure Rick Sow MD Work Phone: [facility] Comment on above: Proteinuria due to t [...] Screening for malign ant neoplasm of colon [facility] Start: 03-21-2027 PROSTATE CANCER SCRE ENING DISCUSSION PROSTATE CANCER SCREENING DISCUSSION [facility] Start: 03-12-2026 Glaucoma screening Dilated Retinal E xam [facility] Start: 11-05-2025 Annual PCP Team [employer] anamika Disease Visit Annual PCP Team Chronic Disease Visit [facility] Start: 10-05-2025 Annual PCP Team [employer] anamika Disease Visit Annual PCP Team Chronic Disease Visit [facility] Start: 09-03-2025 Hepatitis B screening Urine Al bumin:Creatinine Ratio [facility] Start: 09-03-2025 Hepatitis B surface antibody level LDL Cholesterol [facility] Start: 08-27-2025 Annual PCP Team [employer] anamika Disease Visit Annual PCP Team Chronic Disease Visit [facility] Start: 06-25-2025 Annual PCP Team [employer] anamika Disease Visit Annual PCP Team Chronic Disease Visit [facility] Start: 05-19-2025 PROSTATE CANCER SCRE ENING DISCUSSION PROSTATE CANCER SCREENING DISCUSSION [facility] Start: 04-08-2025 End: 04-08-2025 Patient encounter procedure 04/08/2025 10:00 AM EDT Office Visit [facility] [address] [place], [place] [id number] Rick Sow MD [address] [place] [id number] Medicare Wellness [facility] [place] Comment on above: Medicare Wellness Start: 04-07-2025 Annual PCP Team [employer] anamika Disease Visit Annual PCP Team Chronic Disease Visit [facility] Start: 04-07-2025 Anxiety Screening Anxiety Screening [facility] Start: 04-07-2025 BP Controlled (<130/80) BP Controlle d (<130/80) [facility] Start: 04-07-2025 End: 07-07-2025 CBC W Auto Differential panel - Blood COMPLETE BLOOD COUNT AND DIFFERENTIAL Lab Routine Essential hypertension, benign Expected: 04/07/2025, Expires: 07/07/2025 [facility] Work Phone: Comment on above: Expected: 04/07/2025 , Expires: 07/07/2025 Start: 04-07-2025 End: 07-07-2025 Comprehensive metabolic 2000 panel - Serum or Plasma COMPREHENSIVE METABOLIC PANEL Lab Routine Uncontrolled type 2 diabetes mellitus with hyperglycemia (HCC) Expected: 04/07/2025, Expires: 07/07/2025 [facility] Comment on above: Expected: 04/07/2025 , Expires: 07/07/2025 Start: 04-07-2025 Covid-19 Vaccine () Covid-19 Vaccine () [facility] Comment on above: Postponed from 03/15 (Currently Scheduled) Start: 04-07-2025 Depression Screening Depression Scre ening [facility] Start: 04-07-2025 Diabetic foot examination Diabetic F oot Exam [facility] Start: 04-07-2025 End: 07-07-2025 Hemoglobin A1c in Blood HEMOGLOBIN A1C Lab Routine Type 2 diabetes mellitus without complication, without long-term current use of insulin (HCC) Uncontrolled type 2 diabetes mellitus with hyperglycemia (HCC) Expected: 04/07/2025, Expires: 07/07/2025 [facility] Comment on above: Expected: 04/07/2025 , Expires: 07/07/2025 Start: 04-07-2025 End: 07-07-2025 LIPID PANEL, NONFASTING LIPID PANEL, NONFASTING Lab Routine Hyperlipidemia, mixed Expected: 04/07/2025, Expires: 07/07/2025 [facility] Comment on above: Expected: 04/07/2025 , Expires: 07/07/2025 Start: 04-07-2025 Medicare Annual Well ness Visit Medicare Annual Wellness Visit [facility] Start: 04-07-2025 End: 07-07-2025 Microalbumin/Creatinine [Mass Ratio] in Urine ALBUMIN/CREATININE RATIO, URINE Lab Routine Type 2 diabetes mellitus without complication, without long-term current use of insulin (HCC) Expected: 04/07/2025, Expires: 07/07/2025 [facility] Comment on above: Expected: 04/07/2025 , Expires: 07/07/2025 Start: 04-07-2025 End: 07-07-2025 Prostate specific Ag [Mass/volume] in Serum or Plasma PROSTATE-SPECIFIC ANTIGEN DIAGNOSTIC Lab Routine Prostate disorder Expected: 04/07/2025, Expires: 07/07/2025 [facility] Comment on above: Expected: 04/07/2025 , Expires: 07/07/2025 Start: 04-07-2025 RSV Vaccine (1 - Ris k 60-74 years 1-dose series) RSV Vaccine (1 - Risk 60-74 years 1-dose series) [facility] Comment on above: Postponed from 12/22 (Insurance Coverage) Start: 04-07-2025 Shingrix Vaccine (1 of 2) Partida grix Vaccine (1 of 2) [facility] Comment on above: Postponed from 12/22 (Insurance Coverage) Start: 04-07-2025 End: 07-07-2025 Urinalysis complete panel - Urine URINALYSIS, WITH MICROSCOPIC Lab Routine 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) Expected: 04/07/2025, Expires: 07/07/2025 [facility] Comment on above: Expected: 04/07/2025 , Expires: 07/07/2025 Start: 04-07-2025 Urine microalbumin profile DTaP,Tdap,Td Vaccine (1 - Tdap) [facility] Comment on above: Postponed from 12/22 (Insurance Coverage) Start: 04-01-2025 Hepatitis B screening Urine Al bumin:Creatinine Ratio [facility] Start: 04-01-2025 Hepatitis B surface antibody level LDL Cholesterol [facility] Start: 03-15-2025 Influenza vaccination Influenza Vacc ine (#1) [facility] Start: 03-03-2025 Hemoglobin A1c measurement HbA1C [facility] Start: 01-13-2025 Glaucoma screening Dilated Retinal E xam [facility] Start: 01-11-2025 Influenza vaccination Influenza Vacc ine (#1) [facility] Comment on above: Postponed from 03/15 (Currently Scheduled) Start: 11-09-2024 Covid-19 Vaccine () Covid-19 Vaccine () [facility] Start: 11-05-2024 End: 11-05-2024 Patient encounter procedure 11/05/2024 9:20 AM EDT Office [facility] [address] [place] [address] Farzana Kelly PA-C [address] [place] [address] [facility] Comment on above: Rash Start: 10-30-2024 Measurement of respiratory function [facility] Start: 10-28-2024 Walking distance 6 minutes [facility] Start: 10-05-2024 End: 10-05-2024 Patient encounter procedure 10/05/2024 11:40 AM EDT Office Visit Family [facility] [address] [place] [address] Farzana Kelly PA-C [address] [place] [address] 6 month follow up [facility] Comment on above: 6 month follow up Start: 10-05-2024 End: 10-05-2024 Patient encounter procedure 10/05/2024 10:20 AM EDT Office Visit [facility] [address] [place] [address] Farzana Kelly PA-C [address] [place] [address] 6 month follow up [facility] Comment on above: 6 month follow up Start: 09-30-2024 Annual PCP Team [employer] anamika Disease Visit Annual PCP Team Chronic Disease Visit [facility] Start: 09-30-2024 BP Controlled (<130/80) BP Controlle d (<130/80) [facility] Start: 09-29-2024 Hemoglobin A1c measurement HbA1C [facility] Start: 09-27-2024 Hepatitis B screening Urine Al bumin:Creatinine Ratio [facility] Start: 09-27-2024 Hepatitis B surface antibody level LDL Cholesterol [facility] Start: 09-25-2024 End: 12-25-2024 Hemoglobin A1c in Blood HEMOGLOBIN A1C Lab Routine Type 2 diabetes mellitus without complication, without long-term current use of insulin (HCC) Expected: 09/25/2024, Expires: 12/25/2024 [facility] Work Phone: Comment on above: Expected: 09/25/2024 , Expires: 12/25/2024 Start: 09-25-2024 End: 12-25-2024 LIPID PANEL, NONFASTING LIPID PANEL, NONFASTING Lab Routine Type 2 diabetes mellitus without complication, without long-term current use of insulin (HCC) Essential hypertension, benign Hyperlipidemia, mixed Expected: 09/25/2024, Expires: 12/25/2024 [facility] Comment on above: Expected: 09/25/2024 , Expires: 12/25/2024 Start: 09-25-2024 End: 12-25-2024 Microalbumin/Creatinine [Mass Ratio] in Urine ALBUMIN/CREATININE RATIO, URINE Lab Routine Type 2 diabetes mellitus without complication, without long-term current use of insulin (HCC) Expected: 09/25/2024, Expires: 12/25/2024 [facility] Comment on above: Expected: 09/25/2024 , Expires: 12/25/2024 Start: 09-04-2024 End: 11-27-2024 Basic metabolic 2000 panel - Serum or Plasma BASIC METABOLIC PANEL Lab Routine Hyponatremia Essential hypertension, benign Expected: 09/04/2024, Expires: 11/27/2024 [facility] Work Phone: Comment on above: Expected: 09/04/2024 , Expires: 11/27/2024 Start: 08-27-2024 End: 11-26-2024 Basic metabolic 2000 panel - Serum or Plasma [facility] Work Phone: Comment on above: Expected: 08/27/2024 , Expires: 11/26/2024 Start: 08-26-2024 End: 08-26-2024 Patient encounter procedure 08/26/2024 2:00 PM EST Office Visit [facility] [place] [address], [place] [id number] Rick Sow MD [address] [place], [place] [phone] Patient discharged from [facility] Comment on above: Patient discharged f rom [facility] Start: 08-19-2024 Patient discharge [facility] Start: 08-19-2024 [facility] Start: 08-17-2024 Continuous pulse oximetry [facility] Start: 08-17-2024 Care planning and pr oblem solving actions [facility] Start: 08-17-2024 Consultation [facility] Start: 08-17-2024 Consultation [facility] Start: 08-17-2024 [facility] Start: 08-16-2024 Following clinical pathway protocol [facility] Start: 08-16-2024 Care regimes management [facility] Start: 08-16-2024 Inhalation therapy procedure [facility] Start: 08-16-2024 Insertion of cathete r into peripheral vein [facility] Start: 08-16-2024 Measuring intake and output [facility] Start: 08-16-2024 Notification of physician [facility] Start: 08-16-2024 Oxygen therapy [facility] Start: 08-16-2024 Providing care accor ding to standard [facility] Start: 08-16-2024 Provision of activit y privileges [facility] Start: 08-16-2024 Referral to occupati onal therapist [facility] Start: 08-16-2024 Referral to service [facility] Start: 08-16-2024 Respiratory secretio n precautions [facility] Start: 08-16-2024 End: 08-16-2024 [facility] Start: 08-16-2024 Consultation [facility] Start: 08-15-2024 Cardiac monitoring [facility] Start: 08-15-2024 Catheterization of vein [facility] Start: 08-15-2024 Notification of physician [facility] Start: 08-15-2024 Vital signs measurements [facility] Start: 08-15-2024 [facility] Start: 08-15-2024 Admission procedure [facility] Start: 07-15-2024 Advance Directive Discussion Advance Directive Discussion [facility] Start: 06-25-2024 End: 06-25-2024 Patient encounter procedure 06/25/2024 10:00 AM EST Office Visit [facility] [address], [place] [phone] Farzana Kelly PA-C [address] [place], [place] [phone] Neck Pain. See triage 06/24/2024 [facility] Comment on above: Neck Pain. See triag e 06/24/2024 Start: 04-07-2024 End: 04-07-2024 Patient encounter procedure 04/07/2024 10:40 AM EDT Office Visit [facility] [address], [place] [id number] Rick Sow MD [address] [place], [place] [id number] medicare wellness [facility] Comment on above: medicare wellness Start: 04-02-2024 3 comp foot exam completed Diabetic Foot Exam [facility] Start: 04-02-2024 End: 07-02-2024 ALBUMIN/CREAT RATIO RND UR ALBUMIN/CREAT RATIO RND UR Lab Routine Type 2 diabetes mellitus without complication, without long-term current use of insulin (HCC) Uncontrolled type 2 diabetes mellitus with hyperglycemia (HCC) Expected: 04/02/2024, Expires: 07/02/2024 [facility] Work Phone: Comment on above: Expected: 04/02/2024 , Expires: 07/02/2024 Start: 04-02-2024 Annual PCP Team [employer] anamika Disease Visit Annual PCP Team Chronic Disease Visit [facility] Start: 04-02-2024 BP Controlled (<130/80) BP Controlle d (<130/80) [facility] Start: 04-02-2024 End: 07-02-2024 CBC W Auto Differential panel - Blood CBC + DIFF Lab Routine Type 2 diabetes mellitus without complication, without long-term current use of insulin (HCC) Uncontrolled type 2 diabetes mellitus with hyperglycemia (HCC) Expected: 04/02/2024, Expires: 07/02/2024 [facility] Work Phone: Comment on above: Expected: 04/02/2024 , Expires: 07/02/2024 Start: 04-02-2024 End: 07-02-2024 Comprehensive metabolic 2000 panel - Serum or Plasma COMP METABOLIC PANEL Lab Routine Type 2 diabetes mellitus without complication, without long-term current use of insulin (HCC) Uncontrolled type 2 diabetes mellitus with hyperglycemia (HCC) Expected: 04/02/2024, Expires: 07/02/2024 [facility] Work Phone: Comment on above: Expected: 04/02/2024 , Expires: 07/02/2024 Start: 04-02-2024 Covid-19 Vaccine () Covid-19 Vaccine () [facility] Comment on above: Postponed from 03/15 (Not Currently Available) Start: 04-02-2024 Covid-19 Vaccine (5 - Pfizer series) Covid-19 Vaccine (5 - Pfizer series) [facility] Comment on above: Postponed from 01/25 (Not Currently Available) Start: 04-02-2024 Diabetic foot examination Diabetic F oot Exam [facility] Start: 04-02-2024 End: 07-02-2024 Hemoglobin A1c in Blood HGB A1C Lab Routine Type 2 diabetes mellitus without complication, without long-term current use of insulin (HCC) Uncontrolled type 2 diabetes mellitus with hyperglycemia (HCC) Expected: 04/02/2024, Expires: 07/02/2024 [facility] Work Phone: Comment on above: Expected: 04/02/2024 , Expires: 07/02/2024 Start: 04-02-2024 End: 07-02-2024 LIPID PANEL, NONFASTING LIPID PANEL, NONFASTING Lab Routine Hyperlipidemia, mixed Expected: 04/02/2024, Expires: 07/02/2024 [facility] Work Phone: Comment on above: Expected: 04/02/2024 , Expires: 07/02/2024 Start: 04-02-2024 Pneumococcal Vaccine : 65+ (3 - PPSV23 or PCV20) Pneumococcal Vaccine: 65+ (3 - PPSV23 or PCV20) [facility] Comment on above: Postponed from 05/02 (Declined at this time) Start: 04-02-2024 Pneumococcal Vaccine : 65+ (3 of 3 - PPSV23 or PCV20) Pneumococcal Vaccine: 65+ (3 of 3 - PPSV23 or PCV20) [facility] Comment on above: Postponed from 05/02 (Declined at this time) Start: 04-02-2024 End: 07-02-2024 Prostate specific Ag [Mass/volume] in Serum or Plasma PSA/PROSTSPECAG DIAG Lab Routine Prostate disorder Expected: 04/02/2024, Expires: 07/02/2024 [facility] Work Phone: Comment on above: Expected: 04/02/2024 , Expires: 07/02/2024 Start: 04-02-2024 Shingrix Vaccine (1 of 2) Partida grix Vaccine (1 of 2) [facility] Comment on above: Postponed from 12/22 (Insurance Coverage) Start: 04-02-2024 End: 07-02-2024 Urinalysis complete panel - Urine URINALYSIS, WITH MICROSCOPIC Lab Routine Type 2 diabetes mellitus without complication, without long-term current use of insulin (HCC) Expected: 04/02/2024, Expires: 07/02/2024 [facility] Work Phone: Comment on above: Expected: 04/02/2024 , Expires: 07/02/2024 Start: 04-02-2024 Urine microalbumin profile DTaP,Tdap,Td Vaccine (1 - Tdap) [facility] Comment on above: Postponed from 12/22 (Insurance Coverage) Start: 03-30-2024 Hemoglobin A1c measurement HbA1C [facility] Start: 03-22-2024 Hepatitis B screening Urine Al bumin:Creatinine Ratio [facility] Start: 03-22-2024 Hepatitis B surface antibody level LDL Cholesterol [facility] Start: 03-15-2024 Influenza vaccination Influenza Vacc ine (#1) [facility] Start: 01-12-2024 Influenza vaccination Influenza Vacc ine (#1) [facility] Comment on above: Postponed from 03/15 (Declined at this time) Start: 01-11-2024 Glaucoma screening Dilated Retinal E xam [facility] Start: 01-11-2024 Hepatitis C antibody , confirmatory test DILATED RETINAL EXAM [facility] Start: 09-29-2023 Covid-19 Vaccine () Covid-19 Vaccine () [facility] Start: 09-26-2023 ANNUAL PCP TEAM APPLICATIONS DEVELOPMENT CONSULTANT ANAMIKA DISEASE VISIT ANNUAL PCP TEAM CHRONIC DISEASE VISIT [facility] Start: 09-20-2023 End: 11-20-2023 ALBUMIN/CREAT RATIO RND UR ALBUMIN/CREAT RATIO RND UR Lab Routine Type 2 diabetes mellitus without complication, without long-term current use of insulin (HCC) 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) Expected: 09/20/2023, Expires: 11/20/2023 [facility] Work Phone: Comment on above: Expected: 09/20/2023 , Expires: 11/20/2023 Start: 09-20-2023 End: 11-20-2023 Basic metabolic 2000 panel - Serum or Plasma BASIC METABOLIC PNL Lab Routine Type 2 diabetes mellitus without complication, without long-term current use of insulin (HCC) Hyperlipidemia, mixed Essential hypertension, benign Expected: 09/20/2023, Expires: 11/20/2023 [facility] Work Phone: Comment on above: Expected: 09/20/2023 , Expires: 11/20/2023 Start: 09-20-2023 End: 11-20-2023 Hemoglobin A1c in Blood HGB A1C Lab Routine Type 2 diabetes mellitus without complication, without long-term current use of insulin (HCC) 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) Expected: 09/20/2023, Expires: 11/20/2023 [facility] Work Phone: Comment on above: Expected: 09/20/2023 , Expires: 11/20/2023 Start: 09-20-2023 Hemoglobin A1c measurement HbA1C [facility] Start: 09-20-2023 Hemoglobin A1c/Hemoglobin.total in Blood HbA1C [facility] Start: 09-20-2023 Hepatitis B screening URINE AL BUMIN:CREATININE RATIO [facility] Start: 09-20-2023 Hepatitis B surface antibody level LDL CHOLESTEROL [facility] Start: 09-20-2023 End: 11-20-2023 LIPID PANEL, NONFASTING LIPID PANEL, NONFASTING Lab Routine Type 2 diabetes mellitus without complication, without long-term current use of insulin (HCC) Hyperlipidemia, mixed Essential hypertension, benign Expected: 09/20/2023, Expires: 11/20/2023 [facility] Work Phone: Comment on above: Expected: 09/20/2023 , Expires: 11/20/2023 Start: 07-15-2023 Advance Directive Discussion Advance Directive Discussion [facility] Start: 07-15-2023 Behavioral Health Screening Behavioral Health Screening [facility] Start: 07-15-2023 Depression Assessment Depression Ass essment [facility] Start: 07-11-2023 Patient discharge [facility] Start: 06-13-2023 Colonoscopy COLONOSCOPY [facility] Start: 06-13-2023 COLORECTAL CANCER SCREENING COLORECTAL CANCER SCREENING [facility] Start: 05-02-2023 PNEUMOCOCCAL: 65+ (3 - PPSV23 if available, else PCV20) PNEUMOCOCCAL: 65+ (3 - PPSV23 if available, else PCV20) [facility] Start: 05-02-2023 PNEUMOCOCCAL: 65+ (3 - PPSV23 or PCV20) PNEUMOCOCCAL: 65+ (3 - PPSV23 or PCV20) [facility] Start: 05-02-2023 PNEUMOVAX AGE 65 AND OVER WITH 5YR LOOKBACK (#1) PNEUMOVAX AGE 65 AND OVER WITH 5YR LOOKBACK (#1) [facility] Start: 04-08-2023 End: 06-08-2023 CREATININE BLD CREATININE BLD Lab Routine Type 2 diabetes mellitus without complication, without long-term current use of insulin (HCC) Expected: 04/08/2023, Expires: 06/08/2023 [facility] Work Phone: Comment on above: Expected: 04/08/2023 , Expires: 06/08/2023 Start: 03-28-2023 Adult depression screening assessment DEPRESSION SCREENING [facility] Start: 03-28-2023 ANNUAL PCP TEAM APPLICATIONS DEVELOPMENT CONSULTANT ANAMIKA DISEASE VISIT ANNUAL PCP TEAM CHRONIC DISEASE VISIT [facility] Start: 03-28-2023 SHINGRIX VACCINE (1 of 2) PARTIDA GRIX VACCINE (1 of 2) [facility] Comment on above: Postponed from 12/22 (Not Currently Available) Start: 03-25-2023 End: 05-25-2023 ALBUMIN/CREAT RATIO RND UR ALBUMIN/CREAT RATIO RND UR Lab Routine Uncontrolled type 2 diabetes mellitus with hyperglycemia (HCC) 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) Expected: 03/25/2023, Expires: 05/25/2023 [facility] Work Phone: Comment on above: Expected: 03/25/2023 , Expires: 05/25/2023 Start: 03-25-2023 End: 05-25-2023 Comprehensive metabolic 2000 panel - Serum or Plasma COMP METABOLIC PANEL Lab Routine Essential hypertension, benign Expected: 03/25/2023, Expires: 05/25/2023 [facility] Work Phone: Comment on above: Expected: 03/25/2023 , Expires: 05/25/2023 Start: 03-25-2023 End: 05-25-2023 Hemoglobin A1c in Blood HGB A1C Lab Routine 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) Expected: 03/25/2023, Expires: 05/25/2023 [facility] Work Phone: Comment on above: Expected: 03/25/2023 , Expires: 05/25/2023 Start: 03-25-2023 End: 05-25-2023 LIPID PANEL, NONFASTING LIPID PANEL, NONFASTING Lab Routine Hyperlipidemia, mixed Expected: 03/25/2023, Expires: 05/25/2023 [facility] Work Phone: Comment on above: Expected: 03/25/2023 , Expires: 05/25/2023 Start: 03-25-2023 End: 05-25-2023 Prostate specific Ag [Mass/volume] in Serum or Plasma PSA/PROSTSPECAG DIAG Lab Routine Prostate disorder Expected: 03/25/2023, Expires: 05/25/2023 [facility] Work Phone: Comment on above: Expected: 03/25/2023 , Expires: 05/25/2023 Start: 03-25-2023 End: 05-25-2023 Urinalysis complete panel - Urine URINALYSIS, WITH MICROSCOPIC Lab Routine Essential hypertension, benign Expected: 03/25/2023, Expires: 05/25/2023 [facility] Work Phone: Comment on above: Expected: 03/25/2023 , Expires: 05/25/2023 Start: 03-22-2023 Hemoglobin A1c/Hemoglobin.total in Blood HBA1C [facility] Start: 03-21-2023 Hepatitis B screening URINE AL BUMIN:CREATININE RATIO [facility] Start: 03-21-2023 Hepatitis B surface antibody level LDL CHOLESTEROL [facility] Start: 03-15-2023 Influenza vaccination INFLUENZA (#1) [facility] Start: 02-19-2023 3 comp foot exam completed DIABETIC FOOT EXAM [facility] Comment on above: Postponed from 07/28 (Postponed To Appropriate Date) Start: 01-25-2023 COVID-19 VACCINE (5 - Pfizer series) COVID-19 VACCINE (5 - Pfizer series) [facility] Start: 01-11-2023 Hepatitis C antibody , confirmatory test DILATED RETINAL EXAM [facility] Start: 11-29-2022 ANNUAL PCP TEAM APPLICATIONS DEVELOPMENT CONSULTANT ANAMIKA DISEASE VISIT ANNUAL PCP TEAM CHRONIC DISEASE VISIT [facility] Start: 11-29-2022 Hepatitis B surface antibody level LDL CHOLESTEROL [facility] Start: 09-18-2022 Hemoglobin A1c/Hemoglobin.total in Blood HBA1C [facility] Start: 09-14-2022 End: 11-14-2022 ALBUMIN/CREAT RATIO RND UR ALBUMIN/CREAT RATIO RND UR Lab Routine Type 2 diabetes mellitus without complication, without long-term current use of insulin (HCC) 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) Expected: 09/14/2022, Expires: 11/14/2022 [facility] Work Phone: Comment on above: Expected: 09/14/2022 , Expires: 11/14/2022 Start: 09-14-2022 End: 11-14-2022 Hemoglobin A1c in Blood HGB A1C Lab Routine Type 2 diabetes mellitus without complication, without long-term current use of insulin (HCC) 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) Expected: 09/14/2022, Expires: 11/14/2022 [facility] Work Phone: Comment on above: Expected: 09/14/2022 , Expires: 11/14/2022 Start: 09-14-2022 End: 11-14-2022 LIPID PANEL, NONFASTING LIPID PANEL, NONFASTING Lab Routine Type 2 diabetes mellitus without complication, without long-term current use of insulin (HCC) Essential hypertension, benign Hyperlipidemia, mixed Expected: 09/14/2022, Expires: 11/14/2022 [facility] Work Phone: Comment on above: Expected: 09/14/2022 , Expires: 11/14/2022 Start: 07-28-2022 3 comp foot exam completed DIABETIC FOOT EXAM [facility] Start: 07-28-2022 BP CONTROLLED (<130/80) BP CONTROLLE D (<130/80) [facility] Start: 07-28-2022 Urine microalbumin profile DTAP,TDAP,TD (1 - Tdap) [facility] Comment on above: Postponed from 12/22 (Insurance Coverage) Start: 07-15-2022 ADVANCE DIRECTIVE DISCUSSION ADVANCE DIRECTIVE DISCUSSION [facility] Start: 07-15-2022 DEPRESSION ASSESSMENT DEPRESSION ASS ESSMENT [facility] Start: 06-01-2022 Hemoglobin A1c/Hemoglobin.total in Blood HBA1C [facility] Start: 05-11-2022 Hepatitis B screening URINE AL BUMIN:CREATININE RATIO [facility] Start: 05-11-2022 Hepatitis B surface antibody level LDL CHOLESTEROL [facility] Start: 03-16-2022 End: 05-16-2022 ALBUMIN/CREAT RATIO RND UR ALBUMIN/CREAT RATIO RND UR Lab Routine Type 2 diabetes mellitus without complication, without long-term current use of insulin (HCC) Expected: 03/16/2022, Expires: 05/16/2022 [facility] Work Phone: Comment on above: Expected: 03/16/2022 , Expires: 05/16/2022 Start: 03-16-2022 End: 05-16-2022 Comprehensive metabolic 2000 panel - Serum or Plasma COMP METABOLIC PANEL Lab Routine Type 2 diabetes mellitus without complication, without long-term current use of insulin (HCC) Essential hypertension, benign Hyperlipidemia with target LDL less than 100 Expected: 03/16/2022, Expires: 05/16/2022 [facility] Work Phone: Comment on above: Expected: 03/16/2022 , Expires: 05/16/2022 Start: 03-16-2022 End: 05-16-2022 Hemoglobin A1c/Hemoglobin.total in Blood HGB A1C Lab Routine Type 2 diabetes mellitus without complication, without long-term current use of insulin (HCC) 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) Uncontrolled type 2 diabetes mellitus with hyperglycemia (HCC) Expected: 03/16/2022, Expires: 05/16/2022 [facility] Work Phone: Comment on above: Expected: 03/16/2022 , Expires: 05/16/2022 Start: 03-16-2022 End: 05-16-2022 LIPID PANEL, NONFASTING LIPID PANEL, NONFASTING Lab Routine Type 2 diabetes mellitus without complication, without long-term current use of insulin (HCC) Essential hypertension, benign Hyperlipidemia with target LDL less than 100 Expected: 03/16/2022, Expires: 05/16/2022 [facility] Work Phone: Comment on above: Expected: 03/16/2022 , Expires: 05/16/2022 Start: 03-16-2022 End: 05-16-2022 Prostate specific Ag [Mass/volume] in Serum or Plasma PSA/PROSTSPECAG DIAG Lab Routine Prostate disorder Expected: 03/16/2022, Expires: 05/16/2022 [facility] Work Phone: Comment on above: Expected: 03/16/2022 , Expires: 05/16/2022 Start: 03-16-2022 End: 05-16-2022 Urinalysis complete panel - Urine URINALYSIS, WITH MICROSCOPIC Lab Routine Type 2 diabetes mellitus without complication, without long-term current use of insulin ([facility]) Essential hypertension, benign Hyperlipidemia with target LDL less than 100 Expected: 03/16/2022, Expires: 05/16/2022 [facility] Work Phone: Comment on above: Expected: 03/16/2022 , Expires: 05/16/2022 Start: 03-15-2022 Influenza vaccination INFLUENZA (#1) [facility] Start: 02-26-2022 End: 03-12-2022 SARS-CoV-2 (COVID-19) RNA [Presence] in Respiratory specimen by LEO with probe detection [facility] Work Phone: Comment on above: Expected: 02/26/2022 , Expires: 03/12/2022 Start: 12-06-2021 Hepatitis C antibody , confirmatory test DILATED RETINAL EXAM [facility] Start: 11-29-2021 End: 01-29-2022 Hemoglobin A1c/Hemoglobin.total in Blood [facility] Work Phone: Comment on above: Expected: 11/29/2021 , Expires: 01/29/2022 Start: 11-29-2021 End: 01-29-2022 LIPID PANEL, NONFASTING [facility] Work Phone: Comment on above: Expected: 11/29/2021 , Expires: 01/29/2022 Start: 10-26-2021 Hemoglobin A1c/Hemoglobin.total in Blood HBA1C [facility] Start: 10-03-2021 COVID-19 VACCINE (4 - Booster for Pfizer series) COVID-19 VACCINE (4 - Booster for Pfizer series) [facility] Start: 09-09-2021 Adult depression screening assessment DEPRESSION SCREENING [facility] Start: 07-31-2021 COVID-19 VACCINE (4 - Booster for Pfizer series) COVID-19 VACCINE (4 - Booster for Pfizer series) [facility] Start: 07-15-2021 ADVANCE DIRECTIVE DISCUSSION ADVANCE DIRECTIVE DISCUSSION [facility] Start: 07-15-2021 DEPRESSION ASSESSMENT DEPRESSION ASS ESSMENT [facility] Start: 2013 RSV Vaccine (1 - 1-d ose 60+ series) RSV Vaccine (1 - 1-dose 60+ series) [facility] Start: 12-23-2003 SHINGRIX VACCINE (1 of 2) PARTIDA GRIX VACCINE (1 of 2) [facility] Start: 1998 COLOGUARD (FIT-DNA) COLOGUARD (FIT-D NA) [facility] Start: [address] COLONOGRAPHY [facility] Start: 1998 FECAL OCCULT BLOOD FECAL OCCULT BLOO D [facility] Start: 1998 Screening for malign ant neoplasm of colon [facility] Start: 1998 SIGMOIDOSCOPY SIGMOIDOSCOPY [facility] Start: 1972 Urine microalbumin profile DTAP,TDAP,TD (1 - Tdap) [facility] Ambulatory ECG [facility] Basic metabolic 2008 panel with ionized calcium - Serum or Plasma [facility] COVID & INFLUENZA A/ B & RSV NAAT, ROUTINE COVID & INFLUENZA A/B & RSV NAAT, ROUTINE Microbiology Routine Viral illness Suspected COVID-19 virus infection 04/02/2023 10:37 AM EDT [facility] Work Phone: End: 05-07-2024 Ct abdomen w/contrast material CT PANCREAS W IVCON Radiology Routine Family history of pancreatic cancer 1 Occurrences starting 04/08/2023 until 05/07/2024 [facility] Work Phone: Comment on above: 1 Occurrences starti ng 04/08/2023 until 05/07/2024 CT Chest WO contrast [facility] CT Chest WO contrast [facility] Patient referral [facility] Work Phone: Polysomnography [facility] ROUTINE FLU A/B + RSV ROUTINE FL U A/B + RSV Lab Routine Viral illness Suspected COVID-19 virus infection 04/02/2023 10:37 AM EDT [facility] Work Phone: SARS-CoV-2 (COVID-19 ) RNA [Presence] in Respiratory specimen by LEO with probe detection COVID NAAT, UPPER RESPIRATORY, ROUTINE Microbiology Routine Viral illness Suspected COVID-19 virus infection 04/02/2023 10:37 AM EDT [facility] Work Phone: End: 05-01-2024 US ABD RIGHT UPPER QUADRANT US ABD RIGHT UPPER QUADRANT Radiology Routine Family history of pancreatic cancer 1 Occurrences starting 04/02/2023 until 05/01/2024 [facility] Work Phone: Comment on above: 1 Occurrences starti ng 04/02/2023 until 05/01/2024 [facility] Immunizations Immunization Date Immunization Notes Care Provider Jero atkins 05-11-2024 COVID-19 vaccine, ag e 12+ yr (PFIZER-BIONTECH COMIRNATY) Co Nurse Work Phone: [facility] 04-24-2024 influenza, high dose seasonal, preservative-free Immunization Ravi Work Phone: [facility] 04-24-2024 influenza virus vaccine, unspecified formulation Rick Sow MD Work Phone: [facility] 04-07-2024 pneumococcal conjuga te (PCV20) vaccine, 20 valent (PREVNAR 20) Rick Sow MD Work Phone: [facility] 04-07-2024 pneumococcal Conjuga te, unspecified formulation Rick Sow MD Work Phone: [facility] 05-31-2023 COVID-19 vaccine, ag e 12+ yr, season (PFIZER-BIONTECH) Immunization [place] Work Phone: [facility] Work Phone: 05-24-2023 influenza (HD-IIV4) vaccine, age 65+ yr, high dose, quadrivalent, PF (FLUZONE HIGH-DOSE) Immunization Ravi Work Phone: [facility] Work Phone: 05-24-2023 influenza virus vaccine, unspecified formulation Rick Sow MD Work Phone: [facility] 09-25-2022 COVID-19 booster vaccine, age 12+ yr, bivalent (PFIZER-BIONTECH) Farzana Kelly PA-C Work Phone: [facility] 05-16-2022 influenza, high-dose , quadrivalent vaccine (FLUZONE HIGH DOSE QUADRIVALENT) Co Nurse Work Phone: [facility] Work Phone: 05-16-2022 influenza virus vaccine, unspecified formulation Rick Swo MD Work Phone: [facility] 05-20-2021 influenza, high-dose , quadrivalent vaccine (FLUZONE HIGH DOSE QUADRIVALENT) Rick Sow MD Work Phone: [facility] 10-18-2020 Covid (Pfizer) [facility] 09-27-2020 Covid (Pfizer) [facility] 05-30-2020 influenza, high-dose , quadrivalent vaccine (FLUZONE HIGH DOSE QUADRIVALENT) Rick Sow MD Work Phone: [facility] 05-06-2019 influenza, high dose seasonal, preservative-free Rick Sow MD Work Phone: [facility] 05-02-2018 pneumococcal polysaccharide vaccine, 23 valent Rick Sow MD Work Phone: [facility] 04-23-2018 influenza, injectabl e, quadrivalent, preservative free Rick Sow MD Work Phone: [facility] 04-23-2018 influenza, seasonal, injectable Rick Sow MD Work Phone: [facility] 04-19-2017 influenza, injectabl e, quadrivalent, preservative free Rick Sow MD Work Phone: [facility] 09-21-2014 pneumococcal conjuga te vaccine, 13 valent Rick Sow MD Work Phone: [facility] 08-08-2012 influenza virus vaccine, unspecified formulation Rick Sow MD Work Phone: [facility] Payers Date Payer Category Payer Self-pay [id number] 2019 Private Health Insurance O MED ICARE SUPPLEMENT [id number] 2019 Unknown MMO MMO MEDICARE SUPPLEMENT [id number] 2019-Present [phone] [address] [place] [address] Indemnity [id number] 2019 Unknown MMO MMO MEDICARE SUPPLEMENT [id number] 2019-Present [phone] [address] [place] [address] Indemnity [id number] 2019 Unknown [id number] 2018 Medicare MEDICARE MEDICAR E A AND B [id number] 2018-Present [phone] [address] [address] [place] [address] Medicare [id number] 2018 Medicare [id number] 2018 Medicare [id number] 2016 Unknown [id number] Unknown [id number] 2.16.840.1.741994.3.579.2. 462 Unknown [id number] 2.16.840.1.451482.3.579.2. 462 Unknown [id number] 2.16.840.1.722176.3.579.2. 462 Unknown [id number] 2.16.840.1.602576.3.579.2. 462 Unknown [id number] 2.16.840.1.796041.3.579.2. 462 Unknown [id number] 2.16.840.1.750251.3.579.2. 462 Unknown [id number] 2.16.840.1.285182.3.579.2. 462 Unknown [id number] 2.16.840.1.687003.3.579.2. 462 Unknown [id number] 2.16.840.1.991803.3.579.2. 462 Unknown [id number] 2.16.840.1.023490.3.579.2. 462 Unknown [id number] 2.16.840.1.207856.3.579.2. 462 Unknown [id number] 2.16.840.1.265373.3.579.2. 462 Unknown [id number] 2.840.1.470064.3.579.2. 462 Unknown [id number] 2.16.840.1.314631.3.579.2. 462 Unknown [id number] 2.16.840.1.014464.3.579.2. 462 Unknown [id number] 2.16.840.1.201121.3.579.2. 462 Unknown [id number] 2.16.840.1.757993.3.579.2. 462 Unknown [id number] 2.16.840.1.294406.3.579.2. 462 Unknown [id number] 2.16.840.1.574065.3.579.2. 462 Unknown [id number] 2.16.840.1.030629.3.579.2. 462 Unknown [id number] 2.16.840.1.712249.3.579.2. 462 Unknown [id number] 2.16.840.1.553288.3.579.2. 462 Unknown [id number] 2.16.840.1.500423.3.579.2. 462 Unknown [id number] 2.16.840.1.010166.3.579.2. 462 Unknown [id number] 2.16.840.1.990931.3.579.2. 462 Unknown [id number] 2.16.840.1.795928.3.579.2. 462 Unknown [id number] 2.16.840.1.751776.3.579.2. 462 Unknown [id number] 2.16.840.1.231760.3.579.2. 462 Unknown [id number] 2.16.840.1.924748.3.579.2. 462 Unknown [id number] 2.16.840.1.382575.3.579.2. 462 Unknown [id number] 2.16.840.1.467120.3.579.2. 462 Unknown [id number] 2.16.840.1.532681.3.579.2. 462 Social History Date Type Detail Facility Tobacco smoking stat us [facility] Unknown if ever smoked [facility] Work Phone: Start: 1955 Sex Assigned At Male [facility] Start: 02-26-2022 End: 08-16-2024 Tobacco smoking status CTIS Ex-smoker [facility] Work Phone: Start: 01-16-1980 End: 01-15-2010 History of tobacco use Current smoker [facility] Start: 01-16-1980 End: 01-15-2010 History of tobacco use Cigarette Smoker [facility] End: 05-03-2011 History of tobacco use User of smokeless tobacco [facility] Start: 11-29-2021 End: 11-05-2024 Alcohol intake Current drinker of alcohol (finding) [facility] Start: 09-09-2020 History SDOH [employer] Phone [phone] [facility] Start: 09-09-2020 History SDOH Social Connections Membership 2 [facility] Start: 09-09-2020 History SDOH Social Connections Meetings 1 [facility] Start: 09-09-2020 History SDOH Physica l Activity DPW 6 [facility] Start: 09-09-2020 History SDOH Physica l Activity MPS 4 [facility] Start: 09-09-2020 History SDOH Financial 5 [facility] Start: 1955 Sex Assigned At Not on file C [facility] Start: 11-19-2021 End: 03-29-2022 Exposure to SARS-CoV-2 (event) Not sure [facility] Start: 02-26-2022 End: 04-02-2023 Cigarettes smoked current (pack per day) - Reported 0.5 [facility] Work Phone: Start: 02-26-2022 End: 04-07-2024 Tobacco use and exposure Former smokeless tobacco user [facility] Start: 09-25-2022 Alcohol Comment very rarely [facility] Start: 09-25-2022 End: 04-02-2023 Tobacco use panel [facility] Work Phone: Start: 06-15-2012 Adult Depression Scr eening Assessment 0 [facility] Work Phone: Do you belong to any clubs or organizations such as rastafari groups, unions, fraternal or athletic groups, or school groups? No [facility] Do you feel stress - tense, restless, nervous, or anxious, or unable to sleep at night because your mind is troubled all the time - these days [OSQ] Not at all [facility] Start: 07-05-2023 Tobacco smoking stat us NHIS Unknown if ever smoked [facility] Start: 06-29-2019 Non-smoker [facility] How often to you hav e a drink containing alcohol? Never [facility] Are you now , , , , never or living with a partner? [facility] (I/We) worried wheth er (my/our) food would run out before (I/we) got money to buy more. Never true [facility] Start: 10-19-2024 End: 11-05-2024 Sex Male (finding) [facility] Medical Equipment Procedure Code Equipment Code Equipment Origin al Text Equipment Identifier Dates BIANKA HERNANDEZ FDA Start: 07-02-2019 BIANKA HERNANDEZ FDA Start: 07-02-2019 MESH,3DMAX RIGHT XL [id number] FDA Start: 07-02-2019 MESH,VENTLEX ST MED 6.4CM FDA Start: 07-02-2019 TACKER,SECURE STRAP FDA Start : 07-02-2019 Test blood sugar (s) 1-2 times daily. Dx: Type 2 DM - Uncontrolled E11.65 Insulin: No [id number], [id number], [id number], [id number] Start: 07-28-2021 End: 04-29-2023 Comment on above: Test blood sugar(s) 1-2 times daily. Dx: Type 2 DM - Uncontrolled E11.65 Insulin: No BIANKA HERNANDEZ FDA Start: 07-02-2019 BIANKA HERNANDEZ FDA Start: 07-02-2019 MESH,3DMAX RIGHT XL [id number] FDA Start: 07-02-2019 MESH,VENTLEX ST MED 6.4CM FDA Start: 07-02-2019 TACKER,SECURE STRAP FDA Start : 07-02-2019 BIANKA HERNANDEZ FDA Start: 07-02-2019 BIANKA HERNANDEZ FDA Start: 07-02-2019 MESH,3DMAX RIGHT XL [id number] FDA Start: 07-02-2019 MESH,VENTLEX ST MED 6.4CM FDA Start: 07-02-2019 TACKER,SECURE STRAP FDA Start : 07-02-2019 BIANKA HERNANDEZ FDA Start: 07-02-2019 BIANKA HERNANDEZ FDA Start: 07-02-2019 MESH,3DMAX RIGHT XL [id number] FDA Start: 07-02-2019 MESH,VENTLEX ST MED 6.4CM FDA Start: 07-02-2019 TACKER,SECURE STRAP FDA Start : 07-02-2019 BIANKA HERNANDEZ FDA Start: 07-02-2019 BIANKA HERNANDEZ FDA Start: 07-02-2019 MESH,3DMAX RIGHT XL [id number] FDA Start: 07-02-2019 MESH,VENTLEX ST MED 6.4CM FDA Start: 07-02-2019 TACKER,SECURE STRAP FDA Start : 07-02-2019 BIANKA HERNANDEZ Jase COLEMAN FDA Start: 07-02-2019 BIANKA HERNANDEZ Jase COLEMAN FDA Start: 07-02-2019 MESH,3DMAX RIGHT XL [id number] FDA Start: 07-02-2019 MESH,VENTLEX ST MED 6.4CM FDA Start: 07-02-2019 TACKER,SECURE STRAP FDA Start : 07-02-2019 MARYREALBJ Jase COLEMAN FDA Start: 07-02-2019 BIANKA HERNANDEZ Jase JARED FDA Start: 07-02-2019 MESH,3DMAX RIGHT XL [id number] FDA Start: 07-02-2019 MESH,VENTLEX ST MED 6.4CM FDA Start: 07-02-2019 TACKER,SECURE STRAP FDA Start : 07-02-2019 MARYBIANKA Jase COLEMAN FDA Start: 07-02-2019 MARYBIANKA Jase JARED FDA Start: 07-02-2019 MESH,3DMAX RIGHT XL [id number] FDA Start: 07-02-2019 MESH,VENTLEX ST MED 6.4CM FDA Start: 07-02-2019 TACKER,SECURE STRAP FDA Start : 07-02-2019 MARYBIANKA Jase COLEMAN FDA Start: 07-02-2019 MARYBIANKA Jase COLEMAN FDA Start: 07-02-2019 MESH,3DMAX RIGHT XL [id number] FDA Start: 07-02-2019 MESH,VENTLEX ST MED 6.4CM FDA Start: 07-02-2019 TACKER,SECURE STRAP FDA Start : 07-02-2019 MARYREALJB Jase COLEMAN FDA Start: 07-02-2019 MARYBIANKA Jase COLEMAN FDA Start: 07-02-2019 MESH,3DMAX RIGHT XL [id number] FDA Start: 07-02-2019 MESH,VENTLEX ST MED 6.4CM FDA Start: 07-02-2019 TACKER,SECURE STRAP FDA Start : 07-02-2019 MARYBIANKA MCHUGH Jase COLEMAN FDA Start: 07-02-2019 MARYBIANKA Jase MASONBJ FDA Start: 07-02-2019 MESH,3DMAX RIGHT XL [id number] FDA Start: 07-02-2019 MESH,VENTLEX ST MED 6.4CM FDA Start: 07-02-2019 TACKER,SECURE STRAP FDA Start : 07-02-2019 BIANKA HERNANDEZ FDA Start: 07-02-2019 BIANKA HERNANDEZ FDA Start: 07-02-2019 MESH,3DMAX RIGHT XL [id number] FDA Start: 07-02-2019 MESH,VENTLEX ST MED 6.4CM FDA Start: 07-02-2019 TACKER,SECURE STRAP FDA Start : 07-02-2019 BIANKA HERNANDEZ FDA Start: 07-02-2019 BIANKA HERNANDEZ FDA Start: 07-02-2019 MESH,3DMAX RIGHT XL [id number] FDA Start: 07-02-2019 MESH,VENTLEX ST MED 6.4CM FDA Start: 07-02-2019 TACKER,SECURE STRAP FDA Start : 07-02-2019 BIANKA HERNANDEZ FDA Start: 07-02-2019 BIANKA HERNANDEZ FDA Start: 07-02-2019 MESH,3DMAX RIGHT XL [id number] FDA Start: 07-02-2019 MESH,VENTLEX ST MED 6.4CM FDA Start: 07-02-2019 TACKER,SECURE STRAP FDA Start : 07-02-2019 Goals Date Patient Goal Desired Activity /State Functional Status Date Assessment Result Facility 08-19-2024 Functional status Ambulates;Up ad janna [facility] Work Phone: 05-02-2018 Are you deaf, or do you have serious difficulty hearing No 05/02/2018 12:43 PM YUVALT James De Anda III, MD No [facility] 05-02-2018 Are you blind, or do you have serious difficulty seeing, even when wearing glasses No 05/02/2018 12:43 PM James Garcia III, MD No [facility] 05-02-2018 Do you have serious difficulty walking or climbing stairs No 05/02/2018 12:43 PM James Garcia III, MD [facility] 05-02-2018 Do you have difficul ty dressing or bathing No 05/02/2018 12:43 PM James Garcia III, MD No [facility] 05-02-2018 Because of a physica l, mental, or emotional condition, do you have difficulty doing errands alone such as visiting a physician's office or shopping No 05/02/2018 12:43 PM EDT James De Anda III, MD No [facility] Mental Status Date Assessment Result Facility 08-19-2024 Cognitive function Voice/Name [facility] Work Phone: 07-11-2023 Cognitive function Voice/Name [facility] Work Phone: 05-02-2018 Because of a physica l, mental, or emotional condition, do you have serious difficulty concentrating, remembering, or making decisions No 05/02/2018 12:43 PM EDT James De Anda III, MD No [facility] Clinical Notes 07-06-2010 to 04-29-2025 Janny Alamo LPN - 03/26/2025 12:59 PM Cynthia Lopez MA - 03/17/2025 9:51 AM Cynthia Lopez MA - 01/25/2025 2:25 PM Janny Guidry LPN - 01/14/2025 1:13 PM EDT Note Date & Type Note Facility 04-29-2025 Note HNO ID: [id number] Author: ?, ?, ? Service: ? Author Type: Licensed Nurse Type: Progress Notes Filed: 04/29/2025 11:49 Note Text: Patient presents for flu vaccine. Denies any problems at this time. Tolerated injection well. Lalita Perez LPN [facility] 04-21-2025 Note HNO ID: [id number] Author: CYNTHIA AMEZQUITA MA Service: ? Author Type: Nuclear Criticality Safety Engineer Type: Progress Notes Filed: 04/21/2025 09:42 Note Text: DM eye exam, updated. Cynthia Amezquita MA Scan on 04/20/2025 3:21 PM by Provider, External, PAErinC: DM eye exam [facility] 04-08-2025 Note HNO ID: [id number] Author: RICK SOW MD Service: ? Author Type: Physician Type: Progress Notes Filed: 04/08/2025 21:38 Note Text: Mary Aguiar is a 69 year old male here for a Medicare wellness visit. Medicare Health Risk Assessment General Health Good Exercise: Minutes/Day 30 min Exercise: Days/Week 5 days Alcohol: Daily Use Never Alcohol: Drinks/Day Patient does not drink Alcohol: 6 or more drinks Never Feel off balance No Concerns: Teeth/Dentures No Concerns: Sexual function No Troubled by feelings declined Frequency: Eating healthy diet Several days ADLs requiring help None of the above Safety precautions in home/vehicle Yes Smoke, vape, chews tobacco No Difficulty hearing No Difficulty seeing Decline Current Providers Specialists: I have reviewed specialist-related care of the patient in the medical record. Medical/Family history review Reviewed and updated problem list, medical/surgical/family/social history, medications, and allergies. Opioid use review Opioid Medications (last 90 days) No data to display Anxiety/Depression screening PHQ-2 Score: 0 (Lower risk for depression) NEREIDA-2 Score: 0 (Lower risk for anxiety) Recommendation: no further intervention at this time Cognitive screening Mini Cog Score: 5 Cognitive screening reviewed and No further action needed (score 3-5). Mini-Cog Patient asked to remember the following three words: Banana, [place] and Chair Visuospatial/Executive Functioning: Clock drawin/2 (Normal clock with all number in correct sequence and position, hands are correct = 2 points, inability or refusal to draw a clock = 0) Three word recall: 3/3 Total score: 5/5 (Total score = word recall score + clock draw score) Functional Observation Was the patient's Timed Up AND Go test unsteady or >= 12 seconds? No Advance Care Planning Patient did not wish or was not able to name a surrogate decision maker or provide an advance care plan Measurements BP 130/68 (BP Site: Right Arm, BP Position: Sitting, BP Cuff Size: Large Adult) Pulse (!) 56 Resp 18 Ht 179.1 cm (5' 10.5") Wt (!) 146.7 kg (323 lb 6.4 oz) BMI 45.75 kg/m? Vision Screening: Follows with optometry/ophthalmology Assessment/Plan Medicare annual wellness visit, subsequent (Z00.00) - Counseled on healthy diet and regular exercise - Fall avoidance information provided - Personalized prevention plan provided See below Chief Complaint Patient presents with: Medicare Wellness Exam HPI Mary Aguiar is a 69 year old male who presents here today for a medicare wellness and a routine follow up. Patient with hx of HTN, DM2, hyperlipidemia, former smoker, obesity, CATHERINE, rosacea, OA, nenita insufficiency, and those as below. Mary Aguiar is accompanied by his , who is providing additional history. Mary reports a recent hospitalization for bilateral pneumonia, during which he experienced confusion and a syncopal episode. He was initially seen in urgent care, where he was diagnosed with the flu and later developed pneumonia. He was admitted to the ICU and treated with antibiotics. He denies any recent fevers, frequent headaches, changes in hearing or vision, or issues with his nose or throat. He also denies wheezing, dyspnea, hemoptysis, chest pain, palpitations, nausea, emesis, diarrhea, or heartburn. He reports occasional blood in his stool due to hemorrhoids but denies any discomfort with urination or changes in frequency. He also denies any new or unusual aches and pains, easy bruising or bleeding, changes in tolerance to heat or cold, seizures, or tremors. Mary has a history of carotid artery stenosis, with a recent ultrasound showing less than 50% blockage on the right and 50-70% on the left. He also has a history of AFib, for which he is on anticoagulation therapy. He denies any recent episodes of rapid or irregular heart rates. He has a history of DM, with recent blood glucose readings ranging from 80-130 mg/dL. He reports occasional hypoglycemic episodes, which he manages with orange juice. His recent A1c was 6.6%, down from 7.1%. He is also working on weight loss, with a recent weight of 315 lbs, down from 338 lbs in August. Mary reports lower back pain after walking for 15-30 minutes, which is relieved by sitting for a few minutes. He does not experience this pain when using an elliptical or treadmill. He denies any pain radiating down his legs. He also reports a history of calluses on his feet, for which he uses ammonium lactate lotion. Mary has a living will and durable power of estate planning attorney, with his listed as his durable power of estate planning attorney. He reports feeling safe at home. He has not yet received his flu shot for this year but is considering it. He is unsure about receiving the COVID-19 vaccine. He has a history of getting a prev-20 vaccine on 04/07/2024. He also reports a recen (more content not included)... [facility] 03-26-2025 Note HNO ID: [id number] Author: JANNY ALAMO LPN Service: ? Author Type: Licensed Nurse Type: Progress Notes Filed: 03/26/2025 13:00 Note Text: Scan on 03/26/2025 11:54 AM by Matteo Arevalo PA-C: Consultation - Pulmonary [facility] 03-26-2025 History of Present illness Narrative Scan on 03/26/2025 11:54 AM by Matteo Arevalo PA-C: Consultation - Pulmonary documented in this encounter [facility] 03-17-2025 Note HNO ID: [id number] Author: CYNTHIA AMEZQUITA MA Service: ? Author Type: Nuclear Criticality Safety Engineer Type: Progress Notes Filed: 03/17/2025 09:52 Note Text: DM eye visit. HM updated. Cynthia Amezquita MA Scan on 03/16/2025 3:13 PM by Matteo Arevalo PA-C: DM Eye Exam [facility] 03-17-2025 History of Present illness Narrative DM eye visit. HM updated. Cynthia Amezquita MA Scan on 03/16/2025 3:13 PM by Matteo Arevalo PA-C: DM Eye Exam documented in this encounter [facility] 03-04-2025 Radiology Diagnostic study note [facility] Imaging Services [address] [place], [place] [id number] Chest without Contrast MR#: [id number] Acct: [id number] Name: MARY AGUIAR Rep #: [id number] : 1955 M 69 From: Judah Norris MD PCP: Dr. Rick Sow MD Status: REG CLI Study:Chest without Contrast Date of Exam: 03/03/25 Exam# [id number] Ordering Dr: Rodriguez Bermudez NP [employer] UTILITY SUPERVISOR-C PROCEDURE: CHEST WITHOUT CONTRAST 03/03/2025 REASON FOR [...] lobe suggestive of linear scarring. Reading Location: [facility] CC: [employer] PLANT UTILITY SUPERVISOR-C Юлия Bermudez; Dr. Rick Sow MD ~ Bookstore Manager: Signed [facility] 02-17-2025 Note HNO ID: [id number] Author: JANNY ALAMO LPN Service: ? Author Type: LICENSED NURSE Type: Progress Notes Filed: 02/17/2025 15:05 Note Text: Scan on 02/17/2025 11:23 AM by Provider, External, PA-C: Consultation - Pulmonary [facility] 01-25-2025 Note HNO ID: [id number] Author: CYNTHIA AMEZQUITA MA Service: ? Author Type: Nuclear Criticality Safety Engineer Type: Progress Notes Filed: 01/25/2025 14:25 Note Text: View External Labs - BMP [ID [id number]] [facility] 01-25-2025 History of Present illness Narrative View External Labs - BMP [ID [id number]] documented in this encounter [facility] 01-14-2025 Note HNO ID: [id number] Author: JANNY ALAMO LPN Service: ? Author Type: LICENSED NURSE Type: Progress Notes Filed: 01/14/2025 13:17 Note Text: Scan on 01/14/2025 12:28 PM by Provider, External, PA-C: Consultation - Cardiology [facility] 01-14-2025 History of Present illness Narrative Scan on 01/14/2025 12:28 PM by Provider, Matteo PA-C: Consultation - Cardiology documented in this encounter [facility] 01-14-2025 Evaluation note Diagnosis Onset Date Resolution PVC (premature ventricular contraction) acute January 14, 2025 10:03am Carotid artery disease chronic Ju ly 2024 10:03am Dyslipidemia chronic January 14 10:03am HTN (hypertension) chronic January 142024 10:03am Nasal congestion acute February 172024 10:30am Restrictive airway disease acute February 17, 2025 10:30am Hypoxia chronic February 17 10:30am Morbid obesity with BMI of 40.0-44.9, adult chronic February 17, 2025 10:30am Sleep apnea chronic February 17, 2 025 10:30am [facility] Work Phone: 1(857) 447-211507-03-2025 Evaluation note* Diagnosis Onset Date Resolution Status Admit Date PVC (premature ventricular contraction) acute January 14, [...] 17 10:30am Sleep apnea chronic February 17 10:30am Nasal congestion acute 2024 10:51am Restrictive airway disease acute March 26, 2025 10:51am Hypoxia chronic March 10:51am Morbid obesity with BMI of 40.0-44.9, adult chronic March 26, 2025 10:51am Sleep apnea chronic March 10:51am [facility] Work Phone: 1(536) 436-152607-03-2025 Evaluation note* Diagnosis Onset Date Resolution Status Admit Date PVC (premature ventricular contraction) acute January 14, 2025 1 0:03am Carotid artery disease chronic 2024 10:03am Dyslipidemia chronic January 14 10:03am HTN (hypertension) chronic January 142024 10:03am Nasal congestion acute February 172024 10:30am Restrictive airway disease acute February 17, 2025 10:30am Hypoxia chronic February 17 10:30am Morbid obesity with BMI of 40.0-44.9, adult chronic February 17 10:30am Sleep apnea chronic February 17 10:30am Nasal congestion acute 2024 10:51am Restrictive airway disease acute March 26, 2025 10:51am Hypoxia chronic March 10:51am Morbid obesity with BMI of 40.0-44.9, adult chronic March 26, 2025 10:51am Sleep apnea chronic March 10:51am PVC (premature ventricular contraction) acute April 15 9:43am Carotid artery disease chronic Oc tob2024 9:43am Dyslipidemia chronic April 15, 2025 9:43am HTN (hypertension) chronic Octobe r 2024 9:43am [facility] Work Phone: 1(356) 601-874105-02-2025 Evaluation note* Diagnosis Onset Date Resolution Status [...] 10:03am HTN (hypertension) chronic January 142024 10:03am [facility] Work Phone: 1(124) 902-373205-02-2025 Evaluation note* Diagnosis Onset Date Resolution Status [...] 17 10:30am Sleep apnea chronic February 17, 10:30am [facility] Work Phone: 1(223) 613-574305-02-2025 Evaluation note* Diagnosis Onset Date Resolution Status [...] 17 10:30am Sleep apnea chronic February 17 10:30am [facility] Work Phone: 1(592) 798-859804-24-2025 NoteHNO ID: [id number] Author: FARZANA KELLY PA-C Service: ? Author Type: Physician Optical Instrument Specialist Type: Progress Notes Filed: 11/05/2024 10:18 Note Text: Chief Complaint Patient presents with: Rash HPI Mary Aguiar is a 68 year old male who presents here today for itching. Pruritus and Rash: - Onset a few days ago, with improvement today. 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 Venous (peripheral) insufficiency 03/08/2005 Previous Surgical History PAST SURGICAL HISTORY Procedure Laterality Date CHOLECYSTECTOMY 2002 Cholecystectomy COLONOSCOPY FLX DX W/COLLJ SPEC WHEN PFRMD 11-21-07 COLONOSCOPY FLX DX W/COLLJ SPEC WHEN PFRMD 06/13/2018 [facility] De Anda--Repeat 5 years COLSC FLX W/RMVL OF TUMOR POLYP LESION SNARE TQ 04-23-13 DEBRIDEMENT SUBCUTANEOUS TISSUE 20 SQ CM/< Left 06/27/15 Debridement UIQ left breast infected glenny cyst ENDOVENOUS LASER, 1ST VEIN 11/16/2014 [facility] - see scanned documents ENDOVENOUS LASER, 1ST VEIN 06/05/2015 [facility] - right great saphenous vein NEUROPLASTY [...] by mouth once daily. Take with food. [place]-3 Fatty Acids-Vitamin E (FISH OIL) 1,000 mg cap Take 1 capsule by mouth once daily. MULTI-VITAMIN ORAL Take by mouth. No current facility-administered medications on file prior to visit. Social History Social History Tobacco Use Smoking status: Former Current packs/day: 0.00 Average packs/day: 0.5 packs/day for 30.0 years (15.0 ttl pk-yrs) Types: Cigarettes Start date: 01/16/1980 Quit d (more content not included)...[facility]04-23-2025 Note HNO ID: [id number] Author: JANNY ALAMO LPN Service: ? Author Type: LICENSED NURSE Type: Progress Notes Filed: 11/04/2024 08:20 Note Text: Scan on 11/02/2024 1:47 PM by ProviderMatteo PA-C: [facility] History of Present illness Narrative* Janny Alamo LPN - 11/04/2024 8:19 AM EDT Scan on 11/02/2024 1:47 PM by ProviderMatteo PA-C: CT Scan [facility] Telephone encounter Note * Telephone Encounter - Red Guerin MA - 11/04/2024 8:08 AM EDT Patient contacted and scheduled. Offered appointment today with another [employer] UTILITY SUPERVISOR. Patient declined scheduled tomorrow with Farzana. Red Guerin MA [facility]04-23-2025 Miscellaneous Notes* Telephone Encounter - Red Guerin MA - 11/04/2024 8:08 AM EDT Patient contacted and scheduled. Offered appointment today with another [employer] UTILITY SUPERVISOR. Patient declined scheduled tomorrow with Farzana. Red Guerin MA [facility] Radiology Diagnostic study note [facility] Imaging Services [address] [place], [place] [address] Chest without Contrast MR#: [id number] Acct: [id number] Name: MARY AGUIAR Rep #: [id number] : 1955 M 68 From: Judah Norris MD PCP: Dr. Rick Sow MD Status: REG CLI Study:Chest without Contrast Date of Exam: 11/02/24 Exam# [id number] Ordering Dr: Rodriguez Bermudez [employer] UTILITY SUPERVISOR [employer] UTILITY SUPERVISOR-C PROCEDURE: CHEST WITHOUT CONTRAST 11/02/2024 REASON FOR [...] of the left upper lobe. Reading Location: [facility] CC: BOAT AND PLANT UTILITY SUPERVISOR-C Юлия Bermudez; Dr. Rick Sow MD ~ Bookstore Manager: Signed [facility]04-17-2025 Procedure notey [facility] Pulmonary Services/Neurology [address] [place] [address] MR#: [id number] Acct: [id number] Name: MARY AGUIAR Rep #:[id number] : 1955 68 From: Edd Perez DO Referring Dr: Юлия Bermudez NP [employer] UTILITY SUPERVISOR-C Status: REG CLI Location: PSN Date: Sex: M C PSN 6 Minute Walk Test 6 Minute Walk Test 6 Minute Walk Test: 6 Minute Walk Test PSN:6-Minute Walk Test Start: 10/28/24 13:23 Freq: Status: Active Protocol: RESP.6MINW Document 10/28/24 12:38 WLB (Rec: 10/28/24 13:31 WLB [id number]) 6 Minute Walk Test Date Performed 10/28/24 [...] Dictated: 10/29/24 1236 Date Transcribed: 10/29/24 1236 Bookstore Manager: Dr. Edd Perez DO Signed [facility]04-09-2025 NoteHNO ID: [id number] Author: RED GUERIN MA Service: ? Author Type: Nuclear Criticality Safety Engineer Type: Progress Notes Filed: 10/21/2024 16:48 Note Text: Scan on 10/19/2024 9:27 AM by ProviderMatteo PA-C: Stress Test Red Guerin [facility] History of Present illness Narrative* Red Guerin MA - 10/21/2024 4:48 PM EDT Scan on 10/19/2024 9:27 AM by ProviderMatteo PA-C: Stress Test Red Guerin MA' documented [facility] this [facility] Telephone encounter Note * Telephone Encounter - Godfrey Mackay MD - 10/13/2024 2:16 PM EDT Patient should contact stress lab about holding medication prior to test. [facility] Work Phone: 1(325) 730-935604-01-2025 Miscellaneous Notes* Telephone Encounter - Godfrey Mackay MD - 10/13/2024 2:16 PM EDT Patient should contact stress lab about holding medication prior to test. [facility] in this [facility] Telephone encounter Note * Telephone [...] I have a 90 day supply. The staff development educator has not given me my next appointment yet. They were not scheduling out that far. Thank you! Requested Prescriptions Pending Prescriptions Disp Refills potassium chloride 20 mEq TbER 90 tablet 2 Sig: Take 1 tablet by mouth once daily. Leonora Cueva LPN October 09, 2024 11:03 AM [facility]03-28-2025 Miscellaneous Notes* Telephone Encounter - [...] I have a 90 day supply. The staff development educator has not given me my next appointment yet. They were not scheduling out that far. Thank you! Requested Prescriptions Pending Prescriptions Disp Refills potassium chloride 20 mEq TbER 90 tablet 2 Sig: Take 1 tablet by mouth once daily. Leonora Cueva LPN October 09, 2024 11:03 AM documented in this encounterKettering [facility]03-24-2025 NoteHNO ID: [id number] Author: FARZANA KELLY PA-C Service: ? Author Type: Physician Optical Instrument Specialist Type: Progress Notes Filed: 10/05/2024 12:57 Note Text: Chief Complaint Patient presents with: 6 Month Exam HPI aMry Aguiar is a 68 year old male who presents here today for Chronic Medical Conditions.. Patient with hx of HTN, DM2, hyperlipidemia, former smoker, obesity, CATHERINE, rosacea, OA, nenita insufficiency, and those as below. Pneumonia: - Recent hospitalization for pneumonia. - Reports improvement in symptoms; able to breathe well. - Follow-up with flat finisher; recommended nocturnal oxygen monitoring. - Denies current dyspnea. Cardiac Evaluation: - Recent cardiology consultation; staff development educator attributed cardiac symptoms to pneumonia. 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) (FORM[facility]LY [facility]) 05/15/2021 Rosacea 03/11/2021 Sleep apnea 09/01/2007 Not using CPAP Stasis dermatitis 07/07/2011 Type 2 diabetes mellitus without complication, without long-term current use of insulin ([facility]) 02/11/2016 Uncontrolled type 2 diabetes mellitus with hyperglycemia ([facility]) 07/28/2021 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 Venous (peripheral) insufficiency 03/08/2005 Previous Surgical History PAST SURGICAL HISTORY Procedure Laterality Date CHOLECYSTECTOMY 2002 Cholecystectomy COLONOSCOPY FLX DX W/COLLJ SPEC WHEN PFRMD 11-21-07 COLONOSCOPY FLX DX W/COLLJ SPEC WHEN PFRMD 06/13/2018 [facility]--Repeat 5 years COLSC FLX W/RMVL OF TUMOR POLYP LESION SNARE TQ 04-23-13 DEBRIDEMENT SUBCUTANEOUS TISSUE 20 SQ CM/< Left 06/27/15 Debridement UIQ left breast infected glenny cyst ENDOVENOUS LASER, 1ST VEIN 11/16/2014 [facility] - see scanned documents ENDOVENOUS LASER, 1ST VEIN 06/05/2015 [facility] - right great saphenous vein NEUROPLASTY [...] strip Test blood sugar(s) (more content not included)...[facility]03-24-2025 History of Present illness Narrative* Farzana Kelly [...] able to breathe well. - Follow-up with flat finisher; recommended nocturnal oxygen monitoring. - Denies current dyspnea. Cardiac Evaluation: - Recent cardiology consultation; staff development educator attributed cardiac symptoms to pneumonia. 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 Venous (peripheral) insufficiency 03/08/2005 Previous Surgical History PAST SURGICAL HISTORY Procedure Laterality Date CHOLECYSTECTOMY 2002 Cholecystectomy COLONOSCOPY FLX DX W/COLLJ SPEC WHEN PFRMD 11-21-07 COLONOSCOPY FLX DX W/COLLJ SPEC WHEN PFRMD 06/13/2018 [facility]--Repeat 5 years COLSC FLX W/RMVL OF TUMOR POLYP LESION SNARE TQ 04-23-13 DEBRIDEMENT SUBCUTANEOUS TISSUE 20 SQ CM/< Left 06/27/15 Debridement UIQ left breast infected glenny cyst ENDOVENOUS LASER, 1ST VEIN 11/16/2014 [facility] - see scanned documents ENDOVENOUS LASER, 1ST VEIN 06/05/2015 [facility] - right great saphenous vein NEUROPLASTY [...] by mouth once daily. Take with food. [place]-3 Fatty Acids-Vitamin E (FISH OIL) 1,000 mg [...] without long-term current use of insulin (HCC) (E11.9) 2. Uncontrolled type 2 diabetes mellitus with hyperglycemia ([facility]) (E11.65) - Recent A1c increased to 7.1% [...] Morbid obesity with BMI of 40.0-44.9, adult ([facility]) (E66.01) - Encouraged gradual increase in physical activity as tolerated. - Discussed benefits of weight reduction on overall health. 9. Bilateral carotid artery stenosis (I65.23) asymptomatic - No immediate intervention required; continue monitoring. Farzana Kelly PA-C The patient consented to the use of LaunchTrack software for draft documentation of the visit consistent with [facility] s Notice of Privacy Practices. documented in this encounterKettering [facility]03-12-2025 Evaluation note* Diagnosis Onset Date Resolution Status Admit Date Abnormal chest CT acute September 122024 2:12pm Shortness of breath acute September 23, 2024 2:12pm Hypoxia chronic September 23 2:12pm Morbid obesity with BMI of 40.0-44.9, adult chronic September 23 2:12pm Sleep apnea chronic September 23 025 2:12pm Carotid artery disease chronic [facility] 2024 10:54am Diabetes mellitus chronic September [...] 10:03am Sleep apnea chronic January 14 10:03am [facility] Work Phone: 1(455) 322-613003-05-2025 Telephone encounter Note* Telephone Encounter - Janny Alamo LPN - 09/16/2024 7:24 AM EST Please see message from pt. Pt saw you for hospital f/u 09/24/24. Janny Alamo LPN [facility]03-05-2025 Miscellaneous Notes* Telephone Encounter - Janny Alamo LPN - 09/16/2024 7:24 AM EST Please see message from pt. Pt saw you for hospital f/u 09/24/24. Janny Alamo LPN documented in this encounterKettering Health [facility]02-24-2025 NoteHNO ID: [id number] Author: TARIK KLEIN RN Service: ? Author Type: Registered Nurse Type: Progress Notes Filed: 09/07/2024 14:20 Note Text: Transitional Care Management (TCM) Follow-Up Note PCP Update / Actionable Items N/A - No specialty updates needed Patient Source: Ygq-aw-Thawtxc (OON) Discharge Outreach Summary: Spoke with patient, [...] Tarik Klein RN September 07, 2024 2:19 [facility]02-24-2025 History of Present illness Narrative* Tarik Klein RN - 09/07/2024 2:15 PM EST Transitional Care Management (TCM) Follow-Up Note PCP Update / Actionable Items N/A - No specialty updates needed Patient Source: Stq-qc-Khljvhx (OON) Discharge Outreach Summary: Spoke with patient, [...] 07, 2024 2:19 PM documented in this encounterKettering [facility]02-24-2025 NotePatient Outreach (AMBG) MARY AGUIAR ([id number]) 1955 M Date Time Provider Department 09/07/24 TARIK KLEIN [facility] During your visit today, we recorded the following information about you: Tarik Klein RN 09/07/2024 2:20 PM Signed Transitional Care Management (TCM) Follow-Up Note PCP Update / Actionable Items N/A - No specialty updates needed Patient Source: Rqz-iq-Evdgjiq (OON) Discharge Outreach Summary: Spoke with patient, [...] mouth once daily. Take with food. - [place]-3 Fatty Acids-Vitamin E (FISH OIL) 1,000 mg [...] Rosacea [L71.9] 03/11/2021 Protei (more content not included)...[facility]02-21-2025 Telephone encounter Note* Telephone Encounter - Farzana Kelly PA-C - 09/04/2024 10:20 AM EST Note. [facility]02-21-2025 Miscellaneous Notes* Telephone Encounter - [...] of labs at [facility]. documented in this encounterKettering Health [facility]02-21-2025 Telephone encounter Note * Telephone Encounter - Janny Alamo LPN - 09/04/2024 9:52 AM EST Spoke with pt and advised him of Farzana's message. He verbalizes understanding. Pt and pt's advise pt was out of the medication for a little less than 24 hrs until they got the refill. Janny Alamo LPN [facility]02-21-2025 Telephone encounter Note* Telephone Encounter - Farzana Kelly PA-C - 09/04/2024 9:13 AM EST He's been on this for the past few weeks. We didn't start a new med last night?. But no, would not expect lasix to cause hot flashes suddenly.. [facility]02-21-2025 Telephone encounter Note* Telephone Encounter [...] mins and happened twice. Yannick Alamo LPN [facility]02-21-2025 Telephone encounter Note* Telephone Encounter [...] always check in/around March). Farzana Kelly PA-C [facility]02-21-2025 Telephone encounter Note* Telephone Encounter - Janny Alamo LPN - 09/04/2024 8:15 AM EST Pt notified of same. Pt asking if his PSA can be checked. Advises that pcp checks this every 6 months. Last one was done 04/01/24. Janny Alamo LPN [facility]02-21-2025 Telephone encounter Note* Telephone Encounter - Farzana Kelly PA-C - 09/04/2024 7:42 AM EST Sodium levels are back to normal. We will discuss rest of labs at . [facility]02-20-2025 Telephone encounter Note* Telephone Encounter - Janny Alamo LPN - 09/03/2024 8:17 AM EST Please send rx to [facility]. See pt's 's message. Janny Alamo LPN [facility]02-20-2025 Miscellaneous Notes* Telephone Encounter - Janny Alamo LPN - 09/03/2024 8:17 AM EST Please send rx to [facility]. See pt's 's message. Janny Alamo LPN * Telephone Encounter - Janny Alamo LPN - 09/03/2024 6:44 AM EST Please see pt's bp readings. Janny Alamo LPN documented in this encounterKettering [facility]02-[facility]-2025 Telephone encounter Note * Telephone Encounter - Janny Alamo LPN - 09/03/2024 6:44 AM EST Please see pt's bp readings. Janny Alamo LPN [facility]02-14-2025 Telephone encounter Note* Telephone Encounter - Janny Alamo LPN - 08/28/2024 9:40 AM EST Patient notified of results and provider's instructions. Patient verbalizes understanding. Janny Alamo LPN [facility]02-14-2025 Miscellaneous Notes* Telephone Encounter - [...] week. Farzana Kelly PA-C documented in this encounterKettering Health [facility]02-14-2025 Telephone encounter Note * Telephone [...] Recheck in 1 week. Farzana Kelly PA-C [facility]02-13-2025 Instructions* Patient Instructions* Farzana Kelly PA-C - 08/27/2024 12:52 PM EST Please send Mocana message with home BP readings in about 2 weeks. Keep follow up with both pulm and cardio as scheduled. Return to us as needed and for routine visits. documented in this encounterKettering Health [facility]02-13-2025 NoteHNO ID: [id number] Author: FARZANA KELLY PA-C Service: ? Author Type: Physician Optical Instrument Specialist Type: Progress Notes Filed: 08/27/2024 13:16 Note Text: Chief Complaint Patient presents with: Hospital F/U TCM initial contact date: 08/20/2024 HPI Mary Aguiar is a 68 year old male who presents here today for hospital F/u. Patient was admitted to [facility] on 08/15/24 for influenza A. 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 Venous (peripheral) insufficiency 03/08/2005 Previous Surgical History PAST SURGICAL HISTORY Procedure Laterality Date CHOLECYSTECTOMY 2002 Cholecystectomy COLONOSCOPY FLX DX W/COLLJ SPEC WHEN PFRMD 11-21-07 COLONOSCOPY FLX DX W/COLLJ SPEC WHEN PFRMD 06/13/2018 [facility]--Repeat 5 years COLSC FLX W/RMVL OF TUMOR POLYP LESION SNARE TQ 04-23-13 DEBRIDEMENT SUBCUTANEOUS TISSUE 20 SQ CM/< Left 06/27/15 Debridement UIQ left breast infected glenny cyst ENDOVENOUS LASER, 1ST VEIN 11/16/2014 [facility] - see scanned documents ENDOVENOUS LASER, 1ST VEIN 06/05/2015 [facility] - right great saphenous vein NEUROPLASTY [...] as needed. blood sampson (more content not included)...[facility]02-13-2025 History of Present illness Narrative* Farzana Kelly PA-C - 08/27/2024 12:28 PM EST Chief Complaint Patient presents with: Hospital F/U TCM initial contact date: 08/20/2024 HPI Mary Aguiar is a 68 year old male who presents here today for hospital F/u. Patient was admitted to [facility] on 08/15/24 for influenza A. Was [...] Morbid obesity with BMI of 40.0-44.9, adult ([facility]) 07/06/2010 Palpitations 11/29/2021 Has had for many years Personal history of colonic polyps 2018 Plantar fasciitis 05/02/2018 Proteinuria due to type 2 diabetes mellitus ([facility]) ([facility]) 05/15/2021 Rosacea 03/11/2021 Sleep apnea 09/01/2007 Not using CPAP Stasis dermatitis 07/07/2011 Type 2 diabetes mellitus without complication, without long-term current use of insulin ([facility]) 02/11/2016 Uncontrolled type 2 diabetes mellitus with hyperglycemia ([facility]) 07/28/2021 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 Venous (peripheral) insufficiency 03/08/2005 Previous Surgical History PAST SURGICAL HISTORY Procedure Laterality Date CHOLECYSTECTOMY 2002 Cholecystectomy COLONOSCOPY FLX DX W/COLLJ SPEC WHEN PFRMD 11-21-07 COLONOSCOPY FLX DX W/COLLJ SPEC WHEN PFRMD 06/13/2018 [facility] De [facility]--Repeat 5 years COLSC FLX W/RMVL OF TUMOR POLYP LESION SNARE TQ 04-23-13 DEBRIDEMENT SUBCUTANEOUS TISSUE 20 SQ CM/< Left 06/27/15 Debridement UIQ left breast infected glenny cyst ENDOVENOUS LASER, 1ST VEIN 11/16/2014 [facility] - see scanned documents ENDOVENOUS LASER, 1ST VEIN 06/05/2015 [facility] - right great saphenous vein NEUROPLASTY [...] by mouth once daily. Take with food. [place]-3 Fatty Acids-Vitamin E (FISH OIL) 1,000 mg [...] prn. Farzana Kelly PA-C documented in this encounterKettering [facility]02-06-2025 NoteHNO ID: [id number] Author: RITA TAM MA Service: ? Author Type: Nuclear Criticality Safety Engineer Type: Progress Notes Filed: 08/20/2024 12:53 Note Text: POPULATION HEALTH NAVIGATION OUTREACH Action/FYI CM Pool Message: Type: TCM Navigation Team Please assist with scheduling TCM Hospital Discharge Follow up. TCM Eligible until 09/02/24. OON , No RR score Patient discharged from [facility] Discharge date: 08/19/24 Admitted for: Flu [...] Follow-up: Low risk <9% 08/26/[address] [facility] with RICK SOW - Patient discharged from [facility], Discharge date: 08/19/24, Admitted for: Flu, Risk Score: NA 10/05/[address] [facility] with FARZANA KELLY - 6 month follow up Navigation Signature: Rita Tam MA August 20, 2024 12:45 [facility]02-06-2025 History of Present illness Narrative* Rita Tam MA - 08/20/2024 12:45 PM EST POPULATION HEALTH NAVIGATION OUTREACH Action/FYI CM Pool Message: Type: TCM Navigation Team Please assist with scheduling TCM Hospital Discharge Follow up. TCM Eligible until 09/02/24. OON , No RR score Patient discharged from [facility] Discharge date: 08/19/24 Admitted for: Flu [...] Follow-up: Low risk <9% 08/26/[address] [facility] with RICK SOW - Patient discharged from [facility], Discharge date: 08/19/24, Admitted for: Flu, Risk Score: NA 10/05/[address] [facility] with FARZANA KELLY - 6 month follow up Navigation Signature: Rita Tam MA August 20, 2024 12:45 PM * Alesia Shrestha RN - 08/20/2024 12:15 PM EST Transition Care Management (TCM) Initial Outreach PCP Update / Actionable Items TCM Home Visit Referral Source of Stratification: [facility] Hospital Admission Status: Discharged Readmission Risk Score: n/a Patient's zip code: [address] Is zip code within program service area: [...] - No specialty updates needed Patient Source: Xpq-dn-Twrfpbd (OON) Discharge Outreach Summary: Spoke with pt and spouse , he reports feeling OK Denies SOB, fever , chills , vomiting BS this Am was 83 this AM, pt rechecked during the call, increased to 153. Encourage small meals, hydration. Spouse is an RN, assisting at home. Pt. encouraged to call PCP with any questions or concerns. Noted from [facility] records Pulmonary f/u suggested, pt dc'd with home 02. Patient discharged from [facility]. Discharge date: 08/19/24 Admitted for: Flu Readmission Risk: n/a Value-Based Contract: ACO Contact: Contact made with patient: Yes Hi, my name is Alesia Shrestha RN and I am calling from the [facility] on behalf of your Primary [...] patient preference New rx meds added from [facility] 08/19 dc- spouse and pt report waiting [...] I will send your request to a glassware maker demonstrator who will contact and assist you with [...] 20, 2024 12:18 PM documented in this encounterKettering Health [facility]02-06-2025 NoteHNO ID: [id number] Author: ALESIA SHRESTHA RN Service: ? Author Type: Registered Nurse Type: Progress Notes Filed: 08/20/2024 12:31 Note Text: Transition Care Management (TCM) Initial Outreach PCP Update / Actionable Items TCM Home Visit Referral Source of Stratification: [facility] Hospital Admission Status: Discharged Readmission Risk Score: n/a Patient's zip code: [address] Is zip code within program service area: [...] - No specialty updates needed Patient Source: Roo-ug-Upingso (OON) Discharge Outreach Summary: Spoke with pt and spouse , he reports feeling OK Denies SOB, fever , chills , vomiting BS this Am was 83 this AM, pt rechecked during the call, increased to 153. Encourage small meals, hydration. Spouse is an RN, assisting at home. Pt. encouraged to call PCP with any questions or concerns. Noted from [facility] records Pulmonary f/u suggested, pt dc'd with home 02. Patient discharged from [facility]. Discharge date: 08/19/24 Admitted for: Flu Readmission Risk: n/a Value-Based Contract: ACO Contact: Contact made with patient: Yes Hi, my name is Aleisa Shrestha RN and I am calling from the [facility] on behalf of your Primary [...] patient preference New rx meds added from [facility] 08/19 dc- spouse and pt report waiting [...] I will send your request to a glassware maker demonstrator who will contact and assist you with [...] Alesia Shrestha RN August 20, 2024 12:18 [facility]02-06-2025 NoteHNO ID: [id number] Author: JANNY ALAMO LPN Service: ? Author Type: LICENSED NURSE Type: Progress Notes Filed: 08/20/2024 07:12 Note Text: Scan on 08/20/2024 2:35 AM by Matteo Arevalo PA-C: Discharge Summary Scan on 08/20/2024 2:35 AM byProviMatteo quispe PA-C: [facility] History of Present illness Narrative* Janny Alamo LPN - 08/20/2024 7:11 AM EST Scan on 08/20/2024 2:35 AM by Matteo Arevalo PA-C: Discharge Summary Scan on 08/20/2024 2:35 AM by Matteo Arevalo PA-C: Discharge Summary documented in this encounterKettering [facility]02-06-2025 NotePatient Outreach (AMBCMG) MARY AGUIAR ([id number]) 1955 M Date Time Provider Department 08/20/24 ALESIA SHRESTHA During your visit today, we recorded the following information about you: Alesia Shrestha RN 08/20/2024 12:31 PM Signed Transition Care Management (TCM) Initial Outreach PCP Update / Actionable Items TCM Home Visit Referral Source of Stratification: [facility] Hospital Admission Status: Discharged Readmission Risk Score: n/a Patient's zip code: [address] Is zip code within program service area: [...] - No specialty updates needed Patient Source: Mjw-lg-Vxldtic (OON) Discharge Outreach Summary: Spoke with pt and spouse , he reports feeling OK Denies SOB, fever , chills , vomiting BS this Am was 83 this AM, pt rechecked during the call, increased to 153. Encourage small meals, hydration. Spouse is an RN, assisting at home. Pt. encouraged to call PCP with any questions or concerns. Noted from [facility] records Pulmonary f/u suggested, pt dc'd with home 02. Patient discharged from [facility]. Discharge date: 08/19/24 Admitted for: Flu Readmission Risk: n/a Value-Based Contract: ACO Contact: Contact made with patient: Yes Hi, my name is Alesia Shrestha RN and I am calling from the [facility] on behalf of your Primary [...] patient preference New rx meds added from [facility] 08/19 dc- spouse and pt report waiting [...] I will send your request to a glassware maker demonstrator who will contact and assist you with [...] , No RR score Patient discharged from [facility] Discharge date: 08/19/24 Admitted for: Flu Risk Score: NA TCM eligible through 09/02/24 Outcome: 1st attempt. Spoke with spouse Susie. Appointment scheduled for 08/26/24. Reason for Outreach Community Monitoring/Network Navigator Pools AND Phone Line: CM (more content not included)...[facility]02-05-2025 [facility]02-05-2025 NoteHNO ID: [id number] Author: JANNY ALAMO LPN Service: ? Author Type: LICENSED NURSE Type: Progress Notes Filed: 08/19/2024 07:28 Note Text: Scan on 08/18/2024 7:57 AM by Matteo Arevalo PA-C: Consultation - Pulmonary [facility]02-05-2025 History of Present illness Narrative* Janny Alamo LPN - 08/19/2024 7:28 AM EST Scan on 08/18/2024 7:57 AM by Matteo Arevalo PA-C: Consultation - Pulmonary documented in this encounterKettering [facility]02-04-2025 NoteHNO ID: [id number] Author: JANNY ALAMO LPN Service: ? Author Type: LICENSED NURSE Type: Progress Notes Filed: 08/18/2024 07:33 Note Text: Scan on 08/17/2024 1:21 PM by Matteo Arevalo PA-C: [facility] History of Present illness Narrative* Janny Alamo LPN - 08/18/2024 7:33 AM EST Scan on 08/17/2024 1:21 PM by Matteo Arevalo PA-C: Consultation - ID documented in this encounterKettering Health [facility]02-03-2025 History of Present illness Narrative* Red Guerin MA - 08/17/2024 1:36 PM EST Scan on 08/16/2024 1:55 AM by Matteo Arevalo PA-C: Consultation - Emergency Medicine Scan on 08/16/2024 6:54 AM by Matteo Arevalo PA-C: Consultation - Emergency Medicine Red Guerin MA documented in this encounterKettering Health [facility]02-03-2025 NoteHNO ID: [id number] Author: RED GUERIN MA Service: ? Author Type: Nuclear Criticality Safety Engineer Type: Progress Notes Filed: 08/17/2024 13:38 Note Text: Scan on 08/16/2024 1:55 AM by Provider, Matteo PALaly: Consultation - Emergency Medicine Scan on 08/16/2024 6:54 AM by Provider, Matteo PALaly: Consultation - Emergency Medicine [facility] Evaluation note* Diagnosis Onset Date Resolution Status [...] chronic September 23 2:12pm Carotid artery disease [facility] 2024 10:54am Diabetes mellitus chronic September 122024 10:54am Dyslipidemia chronic September 24, 2024 10:54am Dyspnea on exertion chronic September 24, 2024 10:54am HTN (hypertension) chronic September 24, 2024 10:54am Hypoxia chronic September 24 10:54am Morbid obesity chronic September 10:54am Sleep apnea chronic September 24 10:54am [facility] Work Phone: 1(487) 111-458102-02-2025 Evaluation note* Diagnosis Onset Date Resolution Status [...] chronic September 23 2:12pm Carotid artery disease [facility] 2024 10:54am Diabetes mellitus chronic September [...] Sleep apnea chronic November 13, 2024 11:10am [facility] Work Phone: 1(835) 155-441302-01-2025 NoteHNO ID: [id number] Author: JHON NAVA MD Service: ? Author [...] by mouth once daily. Take with food. [place]-3 Fatty Acids-Vitamin E (FISH OIL) 1,000 mg [...] increasing chest pain, or lethargy. Jhon Nava [facility]02-01-2025 History of Present illness Narrative* Jhon Nava [...] by mouth once daily. Take with food. [place]-3 Fatty Acids-Vitamin E (FISH OIL) 1,000 mg [...] lethargy. Jhon Nava MD documented in this encounterK[facility]12-[facility] Telephone encounter Note * Telephone Encounter - Amanda Marrero RN - 07/06/2024 11:45 AM EST Patient and his , given provider's message below and agreeable to recommendations. Patient has no swelling. Amanda Marrero RN [facility]12-23-2024 Miscellaneous Notes* Telephone Encounter - [...] 07/06/2024 11:12 AM EST 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 States [...] possible. Amanda Marrero RN documented in this encounterKet[facility]12-23-2024 Telephone encounter Note * Telephone Encounter - Blanka Lora APRN.CNP - 07/06/2024 11:33 AM EST Stop Actos. I have listed as an allergy. Keep a watch on Blood sugars through the week. Go to ER if dyspnea worsens or is not relived with rest. Any swelling? [facility]12-23-2024 Telephone encounter Note* Telephone Encounter - Amanda Marrero RN - 07/06/2024 11:12 AM EST 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 States [...] as soon as possible. Amanda Marrero RN [facility]12-12-2024 NoteHNO ID: [id number] Author: FARZANA KELLY PA-C Service: ? Author Type: Physician Optical Instrument Specialist Type: Progress Notes Filed: 06/25/2024 10:21 Note [...] Morbid obesity with BMI of 40.0-44.9, adult ([facility]) 07/06/2010 Palpitations 11/29/2021 Has had for many years Personal history of colonic polyps 2018 Plantar fasciitis 05/02/2018 Proteinuria due to type 2 diabetes mellitus ([facility]) ([facility]) 05/15/2021 Rosacea 03/11/2021 Sleep apnea 09/01/2007 Not using CPAP Stasis dermatitis 07/07/2011 Type 2 diabetes mellitus without complication, without long-term current use of insulin ([facility]) 02/11/2016 Uncontrolled type 2 diabetes mellitus with hyperglycemia ([facility]) 07/28/2021 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 Venous (peripheral) insufficiency 03/08/2005 Previous Surgical History PAST SURGICAL HISTORY Procedure Laterality Date CHOLECYSTECTOMY 2002 Cholecystectomy COLONOSCOPY FLX DX W/COLLJ SPEC WHEN PFRMD 11-21-07 COLONOSCOPY FLX DX W/COLLJ SPEC WHEN PFRMD 06/13/2018 [facility]-Michael De Anda--Repeat 5 years COLSC FLX W/RMVL OF TUMOR POLYP LESION SNARE TQ 04-23-13 DEBRIDEMENT SUBCUTANEOUS TISSUE 20 SQ CM/< Left 06/27/15 Debridement UIQ left breast infected glenny cyst ENDOVENOUS LASER, 1ST VEIN 11/16/2014 [facility] - see scanned documents ENDOVENOUS LASER, 1ST VEIN 06/05/2015 [facility] - right great saphenous vein NEUROPLASTY [...] by mouth once daily. Take with food. [place]-3 Fatty Acids-Vitamin E (FISH OIL) 1,000 mg [...] SYSTEMS See hpi EXAM (more content not included)...[facility]12-12-2024 History of Present illness Narrative* Farzana Kelly [...] left 04/12/2017 Cervicalgia 06/26/2017 Diabetic eye exam ([facility]) 03/29/2022 Last done 01/11/22 Dr Rafiq Avendano [...] Morbid obesity with BMI of 40.0-44.9, adult ([facility]) 07/06/2010 Palpitations 11/29/2021 Has had for many years Personal history of colonic polyps 2018 Plantar fasciitis 05/02/2018 Proteinuria due to type 2 diabetes mellitus ([facility]) ([facility]) 05/15/2021 Rosacea 03/11/2021 Sleep apnea 09/01/2007 Not using CPAP Stasis dermatitis 07/07/2011 Type 2 diabetes mellitus without complication, without long-term current use of insulin ([facility]) 02/11/2016 Uncontrolled type 2 diabetes mellitus with hyperglycemia ([facility]) 07/28/2021 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 Venous (peripheral) insufficiency 03/08/2005 Previous Surgical History PAST SURGICAL HISTORY Procedure Laterality Date CHOLECYSTECTOMY 2003 Cholecystectomy COLONOSCOPY FLX DX W/COLLJ SPEC WHEN PFRMD 11-21-07 COLONOSCOPY FLX DX W/COLLJ SPEC WHEN PFRMD 06/13/2018 [facility] De And[facility]--Repeat 5 years COLSC FLX W/RMVL OF TUMOR POLYP LESION SNARE TQ 04-23-13 DEBRIDEMENT SUBCUTANEOUS TISSUE 20 SQ CM/< Left 06/27/15 Debridement UIQ left breast infected glenny cyst ENDOVENOUS LASER, 1ST VEIN 11/16/2014 [facility] - see scanned documents ENDOVENOUS LASER, 1ST VEIN 06/05/2015 [facility] - right great saphenous vein NEUROPLASTY [...] by mouth once daily. Take with food. [place]-3 Fatty Acids-Vitamin E (FISH OIL) 1,000 mg [...] TABLET Farzana Kelly PA-C documented in this encounterKet[facility]12-11-2024 Telephone encounter Note * Telephone [...] the middle. Protocols used: Neck Pain or [id number] [facility]12-11-2024 Miscellaneous Notes* Telephone Encounter - [...] the middle. Protocols used: Neck Pain or [id number] documented in this encounterKettering [facility]10-28-2024 NoteHNO ID: [id number] Author: LALITA PEREZ LPN Service: ? Author Type: LICENSED NURSE Type: Progress Notes Filed: 05/11/2024 11:26 Note Text: Patient presents for COVID vaccine. Denies any problems at this time. Tolerated injection well. [facility] History of Present illness Narrative* Lalita Perez LPN - 05/11/2024 11:26 AM EDT Patient presents for COVID vaccine. Denies any problems at this time. Tolerated injection well. Lalita Perez LPN documented in this encounterKettering [facility]09-24-2024 Instructions* Patient Instructions* Rick Sow MD - 04/07/2024 11:11 AM EDT Get flu and COVID on or after 04/27/2025. Consider getting the RSV vaccine, Tdap for tetanus updateand Shingrix for shingles at a local pharmacy Please bring in copies of your power of estate planning attorney for health care and living will. [...] Advance Directive Discussion due on 07/15/2023 Covid-19 Vaccine( season) due on 03/15/2024 Influenza Vaccine(1) due [...] review all the medicines you take, even zwnw-kkm-esujyko medicines. As you get older, the way [...] have certain medical conditions. documented in this encounterKet[facility]09-24-2024 History of Present illness Narrative* [...] He has also gained some weight. At [facility] on 01/23/2024: A1c was 6.2% Past medical [...] Morbid obesity with BMI of 40.0-44.9, adult ([facility]) 07/06/2010 Palpitations 11/29/2021 Has had for many years Personal history of colonic polyps 2018 Plantar fasciitis 05/02/2018 Proteinuria due to type 2 diabetes mellitus ([facility]) ([facility]) 05/15/2021 Rosacea 03/11/2021 Sleep apnea 09/01/2007 Not using CPAP Stasis dermatitis 07/07/2011 Type 2 diabetes mellitus without complication, without long-term current use of insulin ([facility]) 02/11/2016 Uncontrolled type 2 diabetes mellitus with hyperglycemia ([facility]) 07/28/2021 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 Venous (peripheral) insufficiency 03/08/2005 Previous Surgical History PAST SURGICAL HISTORY Procedure Laterality Date CHOLECYSTECTOMY 2002 Cholecystectomy COLONOSCOPY FLX DX W/COLLJ SPEC WHEN PFRMD 11-21-07 COLONOSCOPY FLX DX W/COLLJ SPEC WHEN PFRMD 06/13/2018 [facility]-Michael De Anda--Repeat 5 years COLSC FLX W/RMVL OF TUMOR POLYP LESION SNARE TQ 04-23-13 DEBRIDEMENT SUBCUTANEOUS TISSUE 20 SQ CM/< Left 06/27/15 Debridement UIQ left breast infected glenny cyst ENDOVENOUS LASER, 1ST VEIN 11/16/2014 [facility] - see scanned documents ENDOVENOUS LASER, 1ST VEIN 06/05/2015 [facility] - right great saphenous vein NEUROPLASTY [...] by mouth once daily. Take with food. [place]-3 Fatty Acids-Vitamin E (FISH OIL) 1,000 mg [...] Abs Lymph 1.00 - 4.00 k/uL 2.20 Glades% % 5.9 Abs Glades <0.87 k/uL 0.37 Eosin% % 3.4 Abs [...] Negative Ketones, Urine Negative Negative Negative Specific [place], Ur 1.005 - 1.030 1.018 1.022 Hemoglobin/Blood,Ur [...] Proteinuria due to type 2 diabetes mellitus ([facility]) ([facility]) - ICD9: 250.40, 791.0, ICD10: E11.29, R80.9 - Controlled - see above. 7. Morbid obesity with BMI of 40.0-44.9, adult ([facility]) - ICD9: 278.01, V85.41, ICD10: E66.01, Z68.41 [...] which included preparing to see the patient, chqf-dz-zvpn patient care, completing clinical documentation, performing a medically appropriate examination, counseling and educating the patient/family/caregiver and ordering medications, tests, or procedures. Rick Sow MD documented in this encounterKettering [facility]07-11-2024 History of Present illness Narrative* Tiffani Muñoz LPN - 01/23/2024 2:56 PM EDT Scan on 01/21/2024 8:03 AM by Provider, KENNA Felipe: Consultation - Ophthalmology documented in this encounterKettering Health [facility]05-23-2024 Telephone encounter Note * Telephone [...] 04/07/2024 Patient needs it sent to [facility] not [facility] where it was sent. Please advise. Thank you. Renee Rader. [facility] Work Phone: 1(828) 496-585005-23-2024 Miscellaneous Notes* Telephone Encounter - Renee Little [...] care: 04/07/2024 Patient needs it sent to [address], not [facility] where it was sent. Please advise. Thank you. Renee Rader. documented in this encounterKettering [facility]04-17-2024 History of Present illness Narrative* Tanner Eric RN - 10/30/2023 10:02 AM EDT DIABETES CARE AND EDUCATION VISIT Location: [place] Type of visit: In person individual PATIENT'S [...] 2023 TIME: 10:02 AM documented in this encounterKettering [facility]03-20-2024 Miscellaneous Notes* Telephone Encounter - [...] AM EDT Below message was sent in [place]ie [place] this morning: Good morning Farzana, We [...] will keep you posted. documented in this encounterKettering [facility]03-20-2024 Miscellaneous Notes* Telephone Encounter - Janny Alamo LPN - 10/02/2023 9:47 AM EDT Spoke with pt regarding this message. See TE. Janny Alamo LPN documented in this encounterKettering Health [facility]03-19-2024 Instructions* Patient Instructions* Farzana Kelly PA-C - 10/01/2023 10:36 AM EDT Please check at home to make sure it was the pioglitazone that caused problems. Please call us withthis information later today or tomorrow. Start checking blood sugars 2 hours after a meal. Can switch up each day. documented in this encounterKettering [facility]03-19-2024 History of Present illness Narrative* [...] Morbid obesity with BMI of 40.0-44.9, adult ([facility]) 07/06/2010 Palpitations 11/29/2021 Has had for many [...] FLX DX W/COLLJ SPEC WHEN PFRMD 06/13/2018 [facility]-Michael Adilson--Repeat 5 years COLSC FLX W/RMVL OF TUMOR POLYP LESION SNARE TQ 04-23-13 DEBRIDEMENT SUBCUTANEOUS TISSUE 20 SQ CM/< Left 06/27/15 Debridement UIQ left breast infected glenny cyst ENDOVENOUS LASER, 1ST VEIN 11/16/2014 [facility] - see scanned documents ENDOVENOUS LASER, 1ST VEIN 06/05/2015 [facility] - right great saphenous vein NEUROPLASTY [...] by mouth once daily. Take with food. [place]-3 Fatty Acids-Vitamin E (FISH OIL) 1,000 mg [...] update us. Will set him up with electronic news gathering camera person. Advised him to start checking some postprandials. [...] wellness. Farzana Kelly PA-C documented in this encounterKettering [facility]02-08-2024 Miscellaneous Notes* Telephone Encounter - [...] Thank you. Cheryl Rader. documented in this encounterKettering Health [facility]12-29-2023 History of Present illness Narrative* Janny Alamo LPN - 07/12/2023 1:38 PM EST Scan on 07/12/2023 1:25 PM by Provider, Matteo, KENNA: Pathology documented in this encounterKettering Health [facility]12-28-2023 History and physical note Author Kishore De Anda [facility] July 11, 2023 7:47am Note Date/Time July 11, 2023 7:47am [facility] Medical Records Department [address] [place] [address] History & Physical Exam 07/11/23 0737 MR#: [id number] Acct: [id number] Name: MARY AGUIAR Rep #:[id number] : 1955 67 From: Kishore De Anda MD PCP: Dr. Rick Sow MD Status:[facility] Location: [place] [address] HPI - General General Date of Admission: 03/29/20 Date of Service: 07/11/23 Chief Complaint: Personal history of colon polyps HPI Narrative MARY AGUIAR, is a 67 M who presents via open access today for surveillance colonoscopy. Previous colonoscopy was May 2018. He notes some rectal bleeding hemorrhoid pain subsequent to the bowel prep for prior to that nothing. He has no bright red blood per rectum or melena. [facility] Medical History (Updated 07/05/23 @ 15:26 by [...] Reaction Status Date / Time dapagliflozin [From [facility]] Allergy Intermediate Chest Verified 07/11/23 07:46 tightness [...] noted. Kishore De Anda M.D., F.A.C.S. 07/11/23 3174 <Electronically signed by Kishore De Anda MD> Cosigner Signature (if applicable): CC: Dr. Rick Sow MD; Dr. Kishore De Anda MD~ Signed [facility] Work Phone: 1(606) 990-712412-28-2023 Procedure [facility] 07-11-2023 Procedure [facility]11-29-2023 Miscellaneous Notes* Telephone Encounter - Red Guerin MA - 06/12/2023 4:11 PM EST Faxed. Red Guerin MA * Telephone Encounter - Rick Sow MD - 06/12/2023 2:03 PM EST Forms ready. * Telephone Encounter - Red Guerin MA - 06/11/2023 4:18 PM EST Received fax from [employer] regarding diabetic supplies for patient. It looks like it was electronically sent 05/16. Received fax 06/11/2023. Red Guerin MA documented in this encounterKettering [facility]11-03-2023 Miscellaneous Notes* Telephone Encounter - Tasneem Wright Ma - 05/17/2023 2:51 PM EDT Patient was notified Tasneem Wright Ma * Telephone Encounter - Rick Sow MD - 05/17/2023 2:28 PM EDT Let patient know I sent in a script for Actos 30 mg once a day to [facility] if he wants to checkon it. The following approved medication requests have been transmitted electronically. Requested Prescriptions Signed Prescriptions Disp Refills pioglitazone (ACTOS) 30 mg tablet 90 tablet 1 Sig: Take 1 tablet by mouth once daily. Authorizing Provider: RICK SOW MD * Telephone Encounter - Maribell Aguirre - 05/17/2023 9:49 AM EDT Mary Aguiar is calling Rick Sow MD today with a update and fyi on the medication, Invokana which is over $900.00 per patient he will not be buying this medication that was to take the place of the [facility]. Patient has been identified by name and birthdate. Duration of symptoms: N/A Person calling: self Call patient at: on cell [phone] (cell) Was an appointment scheduled: No Closing statement: Results or non-symptom based questions: Thank you for calling [facility], your call will be returned within the next business day. Maribell Strauss documented in this encounterKettering Health [facility]10-24-2023 Miscellaneous Notes* Telephone Encounter - [...] MA - 05/07/2023 9:12 AM EDT MONISHA: 9/19/23-medicare wellness with PCP NOV: 10/01/23 with RR Last refill: 12/05/22 Losartan With 180 and 1 refills Amlodipine With 90 and 1 refills Glimepiride With 180 and 1 refills Tita Garza MA documented in this encounterKettering Health [facility]10-19-2023 Miscellaneous Notes* Telephone Encounter - Amanda Marrero RN - 05/02/2023 10:13 AM EDT Patient calling and states his prescriptions for atorvastatin and hydrochlorothiazide were sent to incorrect pharmacy. This nurse contacted [facility] and cancelled the two prescriptions as requested. This nurse contacted [facility] and verbal orders given for the two prescriptions, as patient requested to use their services. Amanda Marrero RN documented in this encounterKettering Health [facility]10-16-2023 Miscellaneous Notes* Telephone Encounter - [...] notify patient. Myriam Rader documented in this encounterKettering Health [facility]09-28-2023 Miscellaneous Notes* Telephone Encounter - Leonora Cueva LPN - 04/11/2023 3:42 PM EDT Patient notified of results, verbalizes understanding of instructions. Leonora Cueva LPN * Telephone Encounter - Rick Sow MD - 04/11/2023 3:32 PM EDT Let patient know ct of pancrease was normal. documented in this [facility]09-27-2023 History of Present illness Narrative* Phuong Plascencia, RT(R) - 04/10/2023 8:40 AM EDT Radiology Service [...] DEPARTMENT: CT; Exam(s) Completed: Pancreas SIGNATURE: RT Jonatan(Zaid) PATIENT NAME: Mary Aguiar DATE: April 10, 2023 TIME: 9:47 AM documented in this encounterKettering Health [facility]09-25-2023 Miscellaneous Notes* Telephone Encounter - Emmanuel Meche Filomena - 04/08/2023 3:51 PM EDT Pt notified and voiced understanding. Transferred to PSS to set up CT. Filomena Emmanuel Mcgregor * Telephone Encounter - Rick Sow MD [...] to get better imaging. documented in this encounterKettering Health [facility]09-21-2023 Miscellaneous Notes* Telephone Encounter - Cici Delatorre RN - 04/04/2023 9:36 AM EDT Pt called and is notified of providers message. Pt voices understanding. Cici Delatorre RN * Telephone Encounter - Farzana Kelly PA-C - 04/04/2023 9:22 AM EDT Farxiga sent back to pharmacy. Invokana discontinued. * Telephone Encounter - Janny Alamo [...] him again. Please send to prescription to [facility]. Please return call to patient when complete. documented in this encounterKettering [facility]09-20-2023 Miscellaneous Notes* Telephone Encounter - [...] advise patient. Thank you. documented in this encounterKettering Health [facility]09-19-2023 Instructions* Patient Instructions* Rick Sow [...] to your next visit. documented in this encounterKettering Health [facility]09-19-2023 History of Present illness Narrative* [...] Morbid obesity with BMI of 40.0-44.9, adult ([facility]) 07/06/2010 Open wound of knee, leg (except [...] mellitus, without long-term current use of insulin ([facility]) 02/11/2016 Uncontrolled type 2 diabetes mellitus with hyperglycemia ([facility]) 07/28/2021 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) 03/08/2005 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 Venous (peripheral) insufficiency 03/08/2005 PAST SURGICAL HISTORY PAST SURGICAL HISTORY Procedure Laterality Date CHOLECYSTECTOMY 2002 Cholecystectomy COLONOSCOPY FLX DX W/COLLJ SPEC WHEN PFRMD 11-21-07 COLONOSCOPY FLX DX W/COLLJ SPEC WHEN PFRMD 06/13/2018 [facility]-Michael De Anda--Repeat 5 years COLSC FLX W/RMVL OF TUMOR POLYP LESION SNARE TQ 04-23-13 DEBRIDEMENT SUBCUTANEOUS TISSUE 20 SQ CM/< Left 06/27/15 Debridement UIQ left breast infected glenny cyst ENDOVENOUS LASER, 1ST VEIN 11/16/2014 [facility] - see scanned documents ENDOVENOUS LASER, 1ST VEIN 06/05/2015 [facility] - right great saphenous vein NEUROPLASTY [...] 67 Resp 16 Ht 185 cm (6' 0.84") Wt (!) 148.3 kg (327 lb) SpO2 [...] left 04/12/2017 Cervicalgia 06/26/2017 Diabetic eye exam ([facility]) 03/29/2022 Last done 01/11/22 Dr Rafiq Avendano [...] Morbid obesity with BMI of 40.0-44.9, adult ([facility]) 07/06/2010 Palpitations 11/29/2021 Has had for many years Personal history of colonic polyps 2018 Plantar fasciitis 05/02/2018 Proteinuria due to type 2 diabetes mellitus ([facility]) 05/15/2021 Rosacea 03/11/2021 Sleep apnea 09/01/2007 Not using CPAP Stasis dermatitis 07/07/2011 Type 2 diabetes mellitus without complication, without long-term current use of insulin ([facility]) 02/11/2016 Uncontrolled type 2 diabetes mellitus with hyperglycemia ([facility]) 07/28/2021 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 Venous (peripheral) insufficiency 03/08/2005 Previous Surgical History PAST SURGICAL HISTORY Procedure Laterality Date CHOLECYSTECTOMY 2002 Cholecystectomy COLONOSCOPY FLX DX W/COLLJ SPEC WHEN PFRMD 11-21-07 COLONOSCOPY FLX DX W/COLLJ SPEC WHEN PFRMD 06/13/2018 [facility]-Michael De Anda--Repeat 5 years COLSC FLX W/RMVL OF TUMOR POLYP LESION SNARE TQ 04-23-13 DEBRIDEMENT SUBCUTANEOUS TISSUE 20 SQ CM/< Left 06/27/15 Debridement UIQ left breast infected glenny cyst ENDOVENOUS LASER, 1ST VEIN 11/16/2014 [facility] - see scanned documents ENDOVENOUS LASER, 1ST VEIN 06/05/2015 [facility] - right great saphenous vein NEUROPLASTY [...] by mouth once daily. Take with food. [place]-3 Fatty Acids-Vitamin E (FISH OIL) 1,000 mg [...] 67 Resp 16 Ht 185 cm (6' 0.84") Wt (!) 148.3 kg (327 lb) SpO2 [...] Ketones, Urine Trace, Negative Negative Negative Specific [place], Ur 1.005 - 1.030 1.021 1.018 Hemoglobin/Blood,Ur [...] which included preparing to see the patient, qnfb-jw-dntr patient care, completing clinical documentation, performing a medically appropriate examination, counseling and educating the patient/family/caregiver and ordering medications, tests, or procedures. Rick Sow MD documented in this encounterKettering [facility]07-10-2023 History of Present illness Narrative* Red Guerin MA - 01/21/2023 5:02 PM EDT Scan on 01/11/2023 6:07 PM by External Provider, KENNA: Consultation - Ophthalmology Hm updated Red Guerin MA documented in this encounterKettering Health [facility]03-14-2023 History of Present illness Narrative* [...] Morbid obesity with BMI of 40.0-44.9, adult ([facility]) 07/06/2010 Palpitations 11/29/2021 Has had for many years Personal history of colonic polyps 2018 Plantar fasciitis 05/02/2018 Proteinuria due to type 2 diabetes mellitus ([facility]) 05/15/2021 Rosacea 03/11/2021 Sleep apnea 09/01/2007 Not using CPAP Stasis dermatitis 07/07/2011 Type 2 diabetes mellitus without complication, without long-term current use of insulin ([facility]) 02/11/2016 Uncontrolled type 2 diabetes mellitus with hyperglycemia ([facility]) 07/28/2021 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 Venous (peripheral) insufficiency 03/08/2005 Previous Surgical History PAST SURGICAL HISTORY Procedure Laterality Date CHOLECYSTECTOMY 2002 Cholecystectomy COLONOSCOPY FLX DX W/COLLJ SPEC WHEN PFRMD 11-21-07 COLONOSCOPY FLX DX W/COLLJ SPEC WHEN PFRMD 06/13/2018 [facility]-Michael De Anda--Repeat 5 years COLSC FLX W/RMVL OF TUMOR POLYP LESION SNARE TQ 04-23-13 DEBRIDEMENT SUBCUTANEOUS TISSUE 20 SQ CM/< Left 06/27/15 Debridement UIQ left breast infected glenny cyst ENDOVENOUS LASER, 1ST VEIN 11/16/2014 [facility] - see scanned documents ENDOVENOUS LASER, 1ST VEIN 06/05/2015 [facility] - right great saphenous vein NEUROPLASTY [...] by mouth once daily. Take with food. [place]-3 Fatty Acids-Vitamin E (FISH OIL) 1,000 mg [...] Negative Negative Ketones, Urine Negative Negative Specific [place], Ur 1.005 - 1.030 1.021 Hemoglobin/Blood,Ur Negative [...] YR Farzana Kelly PA-C documented in this encounterK[facility]01[facility]23 Miscellaneous Notes* Telephone Encounter - Yue Espinoza RN - 07/18/2022 2:34 PM EST Patient calls to let provider's office know that his new pharmacy will be [facility]. He will no longer be utilizing [facility]. Updated Clinical information per patient request. Patient will call as prescriptions are needed. Yue Espinoza RN documented in this encounterK[facility]10-24-2022 Miscellaneous Notes* Telephone Encounter - [...] call him with an update on status. [phone] documented in this encounterKet[facility]10-13-2022 Miscellaneous Notes* Telephone Encounter - [...] PM EDT Patient calls and states that [facility] does not have diabetic testing supplies. Patients asking for prescription to be sent to [facility]. Ellie Samaniego RN documented in this encounterKet[facility]10-10-2022 Miscellaneous Notes* Telephone Encounter - [...] need to notify patient. Red Guerin MA Monihsa: 03/2022 Nov; Last refill: 11/2021 documented in this encounterKettering [facility]10-03-2022 Miscellaneous Notes* Telephone Encounter - [...] mostly getting readings of 110. Please advise. Fliomena Benitez Ma * Telephone Encounter - Rick [...] 04/11/2022 2:22 PM EDT Received paperwork from Junior denying Rybelsus 7 mg. See paperwork on PCP desk. Red Guerin MA * Telephone Encounter - Red Guerin MA - 04/06/2022 9:42 AM EDT Contacted pharmacy and they indicated that they contacted office and spoke with Triston (nurse) at the [facility] on January 03 in regards to prior. Apparently paperwork was faxed to [phone] returned to the pharmacist for review. I did ask them to please update Dr. Sow's fax number. Red Guerin MA * Telephone Encounter - Red Guerin MA - 04/04/2022 3:02 PM EDT Contacted patient and cancelled 3 mg tablet from [facility]. Red Guerin MA Still waiting on paperwork from pharmacy. 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 He is willing to take the 3 mg but the cost is still going to be $800 to 900. Pt states [facility] is sending paper work to have completed to try get a tier reduction. Please watch for paperwork. 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 If not [...] cheaper. Cancelled the 7 mg Rx at [facility]. Asking pcp to send the 7 mg to mail order. Pended. Patient will call insurance to see if they have a cheaper option and let pcp know. documented in this encounterKettering [facility]09-20-2022 Miscellaneous Notes* Telephone Encounter - [...] complete and send back. documented in this encounterKettering [facility]09-19-2022 Miscellaneous Notes* Telephone Encounter - Janny Alamo LPN - 04/02/2022 9:41 AM EDT Pt notified of Dr Sow's message and instructions. Pt verbalizes understanding. Janny Alamo LPN * Telephone [...] afford. Yue Espinoza RN documented in this encounterKettering [facility]09-14-2022 Miscellaneous Notes* Telephone Encounter - Cynthia Amezquita Ma - 03/28/2022 2:15 PM EDT [place]ana message sent to pt notifying him of results from PCP. If questions to contact the office. Cynthia Amezquita Ma * Telephone Encounter - Rick Sow MD - 03/28/2022 1:19 PM EDT Let patient know x-ray of left foot shows some mild arthritis but no fractures. documented in this encounterKettering Health [facility]09-14-2022 History of Present illness Narrative* Federica Hillman, RT(R) - 03/28/2022 9:40 AM EDT Radiology [...] 28, 2022 9:51 AM documented in this encounterKettering Health [facility]09-14-2022 Instructions* Patient Instructions* Rick Sow MD - 03/28/2022 8:28 AM EDT Consider getting the shingrix vaccine for the prevention of shingles from a local pharmacy. Please get labs and urine test done on or after 09/14/2022 prior to your next visit., documented in this encounterKettering Health [facility]09-14-2022 History of Present illness Narrative* [...] FLX DX W/COLLJ SPEC WHEN PFRMD 06/13/2018 [facility]-Michael [facility]--Repeat 5 years COLSC FLX W/RMVL OF TUMOR POLYP LESION SNARE TQ 04-23-13 DEBRIDEMENT SUBCUTANEOUS TISSUE 20 SQ CM/< Left 06/27/15 Debridement UIQ left breast infected glenny cyst ENDOVENOUS LASER, 1ST VEIN 11/16/2014 [facility] - see scanned documents ENDOVENOUS LASER, 1ST VEIN 06/05/2015 [facility] - right great saphenous vein NEUROPLASTY [...] Morbid obesity with BMI of 40.0-44.9, adult ([facility]LY [facility]) 07/06/2010 Open wound of knee, leg (except [...] mellitus, without long-term current use of insulin ([facility]) 02/11/2016 Uncontrolled type 2 diabetes mellitus with hyperglycemia ([facility]) 07/28/2021 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) 03/08/2005 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 Venous (peripheral) insufficiency 03/08/2005 Previous Surgical History PAST SURGICAL HISTORY Procedure Laterality Date CHOLECYSTECTOMY 2003 Cholecystectomy COLONOSCOPY FLX DX W/COLLJ SPEC WHEN PFRMD 11-21-07 COLONOSCOPY FLX DX W/COLLJ SPEC WHEN PFRMD 06/13/2018 [facility]--Repeat 5 years COLSC FLX W/RMVL OF TUMOR POLYP LESION SNARE TQ 04-23-13 DEBRIDEMENT SUBCUTANEOUS TISSUE 20 SQ CM/< Left 06/27/15 Debridement UIQ left breast infected glenny cyst ENDOVENOUS LASER, 1ST VEIN 11/16/2014 [facility] - see scanned documents ENDOVENOUS LASER, 1ST VEIN 06/05/2015 [facility] - right great saphenous vein NEUROPLASTY [...] by mouth once daily. Take with food. [place]-3 Fatty Acids-Vitamin E (FISH OIL) 1,000 mg [...] Abs Lymph 1.00 - 4.00 k/uL 2.86 Glades% % 7.5 Abs [place]ades <0.87 k/uL 0.55 Eosin% % 4.9 Abs [...] Negative Negative Ketones, Urine Negative Negative Specific [place], Ur 1.005 - 1.030 1.021 Hemoglobin/Blood,Ur Negative [...] which included preparing to see the patient, [id number] patient care, completing clinical documentation, performing a medically appropriate examination, counseling and educating the patient/family/caregiver and ordering medications, tests, or procedures. Rick Sow MD documented in this encounterKet[facility]09-13-2022 Miscellaneous Notes* Telephone Encounter - Farzana Kelly PA-C - 03/27/2022 11:52 AM EDT The following approved medication requests have been transmitted electronically. Requested Prescriptions Signed Prescriptions Disp Refills glimepiride (AMARYL) 4 mg tablet 180 tablet 1 Sig: Take 1.5 tabs in AM and 0.5 tabs in PM Authorizing Provider: FARZANA KELLY PA-C * Telephone Encounter - Phuong Alejandro LPN - 03/27/2022 11:03 AM EDT Last office visit: 11/29/21 Next appointment scheduled: 03/21/22 Last labs: 03/28/22 Patient phones requesting refills as follows: Requested Prescriptions Pending Prescriptions Disp Refills glimepiride (AMARYL) 4 mg tablet Sig: Take 1.5 tabs in AM and 0.5 tabs in PM Please review and advise. Phuong Alejandro LPN documented in this encounterKettering [facility]08-15-2022 Instructions* Patient Instructions* Miladys Rangel APRN.ROTOR WINDER - 02/26/2022 11:06 AM EDT covid test ordered You will be notified in 24 -48 hours, results available on [facility] isolation until covid results are back Rest, [...] breath, inability to swallow. documented in this encounterKettering Health [facility] Center08-15-2022 History of Present illness Narrative* Miladys Rangel APRN.CNP - 02/26/2022 11:03 AM EDT Subjective The history is provided by the patient. No high school foreign language tutor was used. HPI Mary Aguiar is a [...] Morbid obesity with BMI of 40.0-44.9, adult ([facility]) 07/06/2010 Open wound of knee, leg (except [...] mellitus, without long-term current use of insulin ([facility]) 02/11/2016 Uncontrolled type 2 diabetes mellitus with hyperglycemia ([facility]) 07/28/2021 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) 03/08/2005 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 Venous (peripheral) insufficiency 03/08/2005 I have confirmed and edited as necessary, the [facility] Review of Systems Constitutional: Positive for malaise/fatigue. [...] hours with results, available on mychart - 2018 CORONAVIRUS 2. Upper respiratory symptom - ICD9: [...] evaluation. Miladys Rangel APRN.TARAN documented in this encounterKettering [facility]06-06-2022 Instructions* Patient Instructions* Carito Landaverde, FLORA - 12/18/2021 11:28 AM EDT 1. Follow [...] or sugar-free beverages. 7 Use healthy fats: [place] oil, canola oil, walnuts, ground flaxseed or [...] visibly estimating accurateportion sizes documented in this encounterKettering Health [facility]06-06-2022 History of Present illness Narrative* [...] or sugar-free beverages. 7 Use healthy fats: [place] oil, canola oil, walnuts, ground flaxseed or [...] Readings: Date: Ht: 12/18/2021 185.4 cm (6' 1") Current weight: Last 1 Encounter Wt Readings: [...] Physical limitations affecting learning: None Referred/Supervised by: Juanjose/Ginger CORTÉS Billing Type: Initial Assess/15 min 2 units SIGNATURE: Carito Landaverde RD PATIENT NAME: Mary Aguiar DATE: December 18, 2021 TIME: 11:06 AM documented in this encounterKettering [facility]05-18-2022 Instructions* Patient Instructions* Rick Sow MD - 11/29/2021 1:52 PM EDT Please get labs and urine test done on or after 03/16/2022 prior to your next visit. For the Glimepiride Take 1.5 tabs in AM and 0.5 tabs in PM documented in this encounterKettering [facility]05-18-2022 History of Present illness Narrative* [...] FLX DX W/COLLJ SPEC WHEN PFRMD 06/13/2018 [facility]--Repeat 5 years COLSC FLX W/RMVL OF TUMOR POLYP LESION SNARE TQ 04-23-13 DEBRIDEMENT SUBCUTANEOUS TISSUE 20 SQ CM/< Left 06/27/15 Debridement UIQ left breast infected glenny cyst ENDOVENOUS LASER, 1ST VEIN 11/16/2014 [facility] - see scanned documents ENDOVENOUS LASER, 1ST VEIN 06/05/2015 [facility] - right great saphenous vein NEUROPLASTY [...] by mouth once daily. Take with food. [place]-3 Fatty Acids-Vitamin E (FISH OIL) 1,000 mg [...] Abs Lymph 1.00 - 4.00 k/uL 2.47 Glades% % 6.3 Abs [place] <0.87 k/uL 0.42 Eosin% % 4.5 Abs [...] loss - Discussed diabetic education issues of terminologist diabetic complications, medications- side effects and need [...] PSA Rick Sow MD documented in this encounterKettering [facility]12-23-2010 History of Past illness Narrative* [...] of this encounter (statuses as of 11/30/2021) [facility] of Past [facility] Narrative* [...] of this encounter (statuses as of 12/18/2021) [place] [address]-23-2010 History of Past illness Narrative* Problem Noted [...] of this encounter (statuses as of 02/26/2022) [facility] of [facility] Narrative* [...] of this encounter (statuses as of 03/27/2022) [place] [address]23-2010 History of Past illness Narrative* Problem Noted [...] of this encounter (statuses as of 03/28/2022) [facility] of [facility] Narrative* [...] of this encounter (statuses as of 03/29/2022) [facility] Narrative* [...] of this encounter (statuses as of 04/02/2022) [facility] Narrative* [...] of this encounter (statuses as of 04/03/2022) [facility] Narrative* [...] of this encounter (statuses as of 04/17/2022) [facility] Narrative* [...] of this encounter (statuses as of 04/23/2022) [facility] Narrative* [...] of this encounter (statuses as of 04/26/2022) [facility] Narrative* [...] of this encounter (statuses as of 05/07/2022) [facility] Narrative* [...] of this encounter (statuses as of 05/16/2022) [facility] Narrative* [...] of this encounter (statuses as of 07/20/2022) [place] [address]23-2010 History of Past illness Narrative* Problem Noted [...] of this encounter (statuses as of 09/25/2022) [place] [address]23-2010 History of Past illness Narrative* Problem Noted [...] of this encounter (statuses as of 01/22/2023) [facility] Narrative* [...] of this encounter (statuses as of 04/02/2023) [facility] Narrative* [...] of this encounter (statuses as of 04/04/2023) [facility] Narrative* [...] of this encounter (statuses as of 04/09/2023) [facility] Narrative* [...] of this encounter (statuses as of 04/23/2023) [facility] Narrative* [...] of this encounter (statuses as of 04/30/2023) [facility] Narrative* [...] of this encounter (statuses as of 05/01/2023) [facility] Narrative* [...] of this encounter (statuses as of 05/02/2023) [facility] Narrative* [...] of this encounter (statuses as of 05/08/2023) [facility] Narrative* [...] of this encounter (statuses as of 05/18/2023) [place] [address]-23-2010 History of Past illness Narrative* Problem Noted [...] of this encounter (statuses as of 05/19/2023) [facility] Narrative* [...] of this encounter (statuses as of 05/24/2023) [facility] Narrative* [...] of this encounter (statuses as of 05/31/2023) [facility] Narrative* [...] of this encounter (statuses as of 06/13/2023) [facility] Narrative* [...] of this encounter (statuses as of 07/16/2023) [facility] Narrative* [...] of this encounter (statuses as of 08/22/2023) [facility] Narrative* [...] of this encounter (statuses as of 10/01/2023) [facility] Narrative* [...] of this encounter (statuses as of 10/02/2023) [facility] Narrative* [...] of this encounter (statuses as of 10/02/2023) [facility] Narrative* [...] of this encounter (statuses as of 10/31/2023) [facility] CenterEvaluation noteNo assessment information availableWBarberton Citizens [facility] Work Phone: Evaluation note* Diagnosis Proteinuria due [...] of unspecified site documented in this encounter [facility] [place] [facility]* Diagnosis Obesity, Class III, BMI 40-49.9 (morbid obesity) (HCC)- Primary Morbid obesity Type 2 diabetes mellitus without complication, without long-term current use of insulin (HCC) Dietary counseling Dietary surveillance and counseling documented in this encounter [facility] [place] [facility]* Diagnosis Suspected COVID-19 virus infection- Primary Upper respiratory symptom Other symptoms involving respiratory system and chest Body aches Generalized pain Rash Rash and other nonspecific skin eruption documented in this encounter [facility] [place] [facility]* Diagnosis Medicare annual wellness visit, subsequent- [...] warts, unspecified type documented in this encounter [facility] [place] [facility]* Diagnosis Uncontrolled type 2 diabetes mellitus with hyperglycemia (HCC) Type 2 diabetes mellitus without complication, without long-term current use of insulin (HCC) Essential hypertension, benign Hyperlipidemia with target LDL less than 100 Other and unspecified hyperlipidemia documented in this encounter [facility] [place] [facility]* Diagnosis Uncontrolled type 2 diabetes mellitus with hyperglycemia (HCC) documented in this encounter [facility] [place] [facility]* Diagnosis Type 2 diabetes mellitus without complication, without long-term current use of insulin (HCC) documented in this encounter [facility] [place] [facility]* Diagnosis Type 2 diabetes mellitus without [...] single bacterial disease documented in this encounter [facility] [place] [facility]* Diagnosis Medicare annual wellness visit, subsequent- [...] COVID-19 virus infection [facility] [place] [facility]* Diagnosis Family history of pancreatic cancer- Primary Family history of malignant neoplasm of gastrointestinal tract Type 2 diabetes mellitus without complication, without long-term current use of insulin (HCC) [facility] [place] [facility]* Diagnosis Uncontrolled type 2 diabetes mellitus with hyperglycemia (HCC) Essential hypertension, benign Hyperlipidemia with target LDL less than 100 Other and unspecified hyperlipidemia [facility] [place] [facility]* Diagnosis Essential hypertension, benign [facility] [place] [facility]* Diagnosis Family history of pancreatic cancer Family history of malignant neoplasm of gastrointestinal tract [facility] [place] [facility]* Diagnosis Onset Date Resolution Status Personal history of colonic polyps acute [facility] Work Phone: Evaluation note* Diagnosis Essential hypertension, benign Hyperlipidemia with target LDL less than 100 Other and unspecified hyperlipidemia documented in this encounter [facility] note* Diagnosis Type 2 diabetes mellitus without complication, without long-term current use of insulin (HCC)- Primary Uncontrolled type 2 diabetes mellitus with hyperglycemia (HCC) Rosacea Hyperlipidemia, mixed Mixed hyperlipidemia Essential hypertension, benign 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) Prostate disorder Unspecified disorder of prostate Morbid obesity with BMI of 40.0-44.9, adult (HCC) Morbid obesity [facility] Diagnosis Uncontrolled type 2 diabetes mellitus with hyperglycemia (HCC) 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) documented in this encounter [facility] [place] [facility]* Diagnosis Medicare annual wellness visit, subsequent- Primary Routine general medical examination at a health care facility Type 2 diabetes mellitus without complication, without long-term current use of insulin (HCC) Diabetic eye exam ([facility]) Type II or unspecified type diabetes mellitus without mention of complication, not stated as uncontrolled Essential hypertension, benign Hyperlipidemia, mixed Mixed hyperlipidemia 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) Morbid obesity with BMI of 40.0-44.9, adult ([facility]) Morbid obesity Stasis dermatitis Varicose veins of [...] and behavioral disorders documented in this encounter [facility] [place] [facility]* Diagnosis Foot pain, left Pain in limb [facility] Encounter for immunization- Primary Need for other specified prophylactic vaccination against single bacterial disease [facility] [place] [facility]* Diagnosis Neck sprain, initial encounter- Primary Neck pain Cervicalgia Neck muscle spasm Spasm of muscle [facility]* Diagnosis Influenza A- Primary Influenza with other respiratory manifestations Influenza-like illness Influenza with other respiratory manifestations [facility] [place] [facility]* Diagnosis Hospital discharge follow-up- Primary Other follow-up examination Influenza A Influenza with other respiratory manifestations Essential hypertension, benign Syncope, unspecified syncope type Chronic obstructive pulmonary disease with acute exacerbation (HCC) Obstructive chronic bronchitis with exacerbation ELEN (acute kidney injury) ([facility]) Acute kidney failure, unspecified documented [facility] this encounter [facility]* Diagnosis Hyponatremia- Primary Hyposmolality and/or hyponatremia Essential hypertension, benign [facility]* Diagnosis Type 2 diabetes mellitus without [...] of cerebral infarction documented in this encounter [facility] for referral (narrative)* Diagnostic Procedure Only (Routine) - Closed Specialty Diagnoses / Procedures Referred By Contac t Referred To Contact XR IMAGING Diagnoses Foot pain, left Procedures XR FOOT GENERAL 3V AP/LAT/OBL LEFT RADEX FOOT COMPLETE MINIMUM 3 VIEWS Rick Sow MD [address] [place] [address] Xr Imaging Referral ID Status Reason Start Date Expiration Date V isits Requested Visits Authorized [id number] Closed Auto-Generate d Referral 03/28/2022 04/27/2023 1 1 [facility] for referral (narrative)* Diagnostic Procedure Only (Routine) - Authorized Specialty Diagnoses / Procedures Referred By Contac t Referred To Contact US IMAGING Diagnoses Family history of pancreatic cancer Procedures US ABD RIGHT UPPER QUADRANT US ABDOMINAL REAL TIME W/IMAGE LIMITED Rick Sow MD [address] [place] [address] [place] [address] Referral ID Status Reason Start Date Expiration Date Visits Requested Visits Authorized [id number] Authorized Auto-Generat ed Referral 04/02/2023 05/01/2024 1 1 * Transition of Care (Routine) - Ref Not Required Specialty Diagnoses / Procedures Referred By Contac t Referred To Contact Dermatology Diagnoses Neoplasm of uncertain behavior of skin of nose Procedures CONSULT TO DERMATOLOGY Rick Sow MD [address] [place] [address] Referral ID Status Reason Start Date Expiration Date Visits Requested Visits Authorized [id number] Ref Not Required PCP Requested Referral 04/02/2023 04/01/2024 1 1 * Consult, Test, Treat (Routine) - Authorized Specialty Diagnoses / Procedures Referred By Elijah t Referred To Contact General Surgery Diagnoses History of colonic polyps Screening for colon cancer Procedures CONSULT TO GENERAL SURGERY OFFICE/OUTPATIENT [facility] 60-74 MINUTES Rick Sow MD [address] [place] [address] Referral ID Status Reason Start Date Expiration Date Visits Requested Visits Authorized [id number] Authorized PCP Requested Referral 04/02/2023 04/01/2024 1 1 [facility] for referral (narrative)* Diagnostic Procedure Only (Routine) - Closed Specialty Diagnoses / Procedures Referred By Elijah ventura Referred To Contact XR IMAGING Diagnoses Foot pain, left Procedures XR FOOT GENERAL 3V AP/LAT/OBL LEFT RADEX FOOT COMPLETE MINIMUM 3 VIEWS Rick Sow MD [facility] [place] [address] [place] [address] Referral ID Status Reason Start Date Expiration Date V isits Requested Visits Authorized [id number] Closed Auto-Generate d Referral 03/28/2022 04/27/2023 1 1 [facility] for referral (narrative)No reason for referral information [facility] Phone: reason for visit Narrative* Diagnostic Procedure Only (Routine) - Closed Specialty Diagnoses / Procedures Referred By Elijah t Referred To Contact XR IMAGING Diagnoses Foot pain, left Procedures XR FOOT GENERAL 3V AP/LAT/OBL LEFT RADEX FOOT COMPLETE MINIMUM 3 VIEWS Rick Sow MD [facility] [place] [address] [place] [address] Referral ID Status Reason Start Date Expiration Date V isits Requested Visits Authorized [id number] Closed Auto-Generate d Referral 03/28/2022 04/27/2023 1 1 [facility] Family History No Family History [...] (HCC) Procedures CONSULT TO NUTRITION THERAPY OFFICE/OUTPATIENT [facility] HIGH MDM 60-74 MINUTES Rick Sow MD [address] [place] [address] Referral ID Status Reason Start Date Expiration Date Visits Requested Visits Authorized [id number] Authorized PCP Requested Referral 11/29/2021 11/29/2022 1 1 Specialty Diagnoses / Procedures Referred By Elijah ventura Referred To Contact CT IMAGING Diagnoses Family history of pancreatic cancer Procedures CT PANCREAS W IVCON CT ABDOMEN W/CONTRAST Rick Sow MD [address] [place] [address] Ct [id number] Referral ID Status Reason Start Date Expiration Date Visits Requested Visits Authorized [id number] Authorized Auto-Generat ed Referral 04/08/2023 05/07/2024 1 1 Referral ID Status Reason Start Date Expiration Date V isits Requested Visits Authorized [id number] Closed Auto-Generate d Referral 04/08/2023 05/07/2024 1 1 Specialty Diagnoses / Procedures Referred By Elijah ventura Referred To Contact Diagnoses Uncontrolled type 2 diabetes mellitus with hyperglycemia (HCC) 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) Procedures CONSULT TO DIABETES EDUCATION DSME/MNT MEDICAL NUTRITION ASSMT&IVNTJ INDIV EACH 15 [place] MEDICAL NUTRITION ASSMT&IVNTJ INDIV EACH 15 [place] MEDICAL NUTRITION ASSMT&IVNTJ INDIV EACH 15 [place] MEDICAL NUTRITION ASSMT&IVNTJ INDIV EACH 15 [place] Farzana Kelly PA-C [address] [place] [address] [facility] [address] [place] [address] Referral ID Status Reason Start Date Expiration Date Visits Requested Visits Authorized [id number] Authorized PCP Requested Referral 10/01/2023 09/30/2024 1 1 Specialty Diagnoses / Procedures Referred By Elijah ventura Referred To Contact Diagnoses Neck pain Neck muscle spasm Farzana Kelly PA-C [address] [place] [address] Referral ID Status Reason Start Date Expiration Date Visits Re quested Visits Authorized [id number] Closed 1 1 Health Concerns Infection Onset [...] FU September 23, 2024 2:1 2pm S/P ([facility] 08/15/24) September 24, 2024 10: 54am [...] Hospital September 23, 2024 2:1 2pm S/P ([facility] 08/15/24) September 24, 2024 10: 54am [...] Hospital September 23, 2024 2:1 2pm S/P ([facility] 08/15/24) September 24, 2024 10: 54am [...] Hospital September 23, 2024 2:1 2pm S/P ([facility] 08/15/24) September 24, 2024 10: 54am [...] M FU January 14, 2025 10:03 am Reason for [...] 10: 30am Restrictive airway disease February 17, 025 10:30am Hypoxia February 17, 2025 10: [...] 1 M FU March 26, 2025 10:51am CATHERINE April 05, 2025 8:02pm Reason for Visit Admit Date PVC (premature [...] Sleep apnea February 17, 2025 10: 30am Nasal congestion March 26, 2025 10:51am Restrictive airway disease March 10:51am Hypoxia March 26, 2025 10:51am Morbid obesity with BMI of 40.0-44.9, ad ult March 26, 2025 10:51am Sleep apnea March 26, 2025 10:51am Chief Complaint Admit Date 3 M FU January 14, 2025 10:03 am EORDER January 25, 2025 10:3 2am PVC January 29, 2025 12:0 3pm PVC January 29, 2025 12:2 9pm 3 M FU February 17, 2025 10: 30am R93.89 Abnormal findings on diagnostic i maging of March 03, 2025 8:26am 1 M FU March 26, 2025 10:51am CATHERINE April 05, 2025 8:02pm 3 M FU April 15, 2025 9: 43am Reason for Visit Admit Date PVC (premature ventricular contraction) January 14, 2025 10:03am Carotid artery disease January 14, 2025 10 :03am Dyslipidemia January 14, 2025 10:03 am HTN (hypertension) January 14, 2025 10:03 am Nasal congestion February 17, 2025 10: 30am Restrictive airway disease February 17, 025 10:30am Hypoxia February 17, 2025 10: 30am Morbid obesity with BMI of 40.0-44.9, ad ult February 17, 2025 10:30am Sleep apnea February 17, 2025 10: 30am Nasal congestion March 26, 2025 10:51am Restrictive airway disease March 10:51am Hypoxia March 26, 2025 10:51am Morbid obesity with BMI of 40.0-44.9, ad ult March 26, 2025 10:51am Sleep apnea March 26, 2025 10:51am PVC (premature ventricular contraction) April 15, 2025 9:43am Carotid artery disease April 15, 2025 9:43am Dyslipidemia April 15, 2025 9: 43am HTN (hypertension) April 15, 2025 9: 43am Advance Directives No Advanced Directives Records Found Advance Directive Response Recorded Date/ Time Advance Directives No May 3:19pm Living Will No July 05, 2 023 3:16pm Power of [place] Alarm Operator No July 05, 2023 3:16pm Advance Directive Response Recorded Date/ Time Living Will No August 16 3:13am Do you have a Healthcare Power of [place] Alarm Operator? No August 16, 2024 3:13am Advance Directives [...] or prosecute any alcohol or drug abuse patient.[facility] the event this information is protected by the Federal Confidentiality of Alcohol and Drug Abuse Patient Records regulations: The Federal rules restrict any use of the information to criminally investigate or prosecute any alcohol or drug abuse patient.[facility] CenterIn the event this information is protected by the Federal Confidentiality of Alcohol and Drug Abuse Patient Records regulations: The Federal rules restrict any use of the information to criminally investigate or prosecute any alcohol or drug abuse patient.[facility] CenterIn the event this information is protected by the Federal Confidentiality of Alcohol and Drug Abuse Patient Records regulations: The Federal rules restrict any use of the information to criminally investigate or prosecute any alcohol or drug abuse patient.[facility] CenterIn the event this information is protected by the Federal Confidentiality of Alcohol and Drug Abuse Patient Records regulations: The Federal rules restrict any use of the information to criminally investigate or prosecute any alcohol or drug abuse patient.[facility] CenterIn the event this information is protected by the Federal Confidentiality of Alcohol and Drug Abuse Patient Records regulations: The Federal rules restrict any use of the information to criminally investigate or prosecute any alcohol or drug abuse patient.[facility] CenterIn the event this information is protected by the Federal Confidentiality of Alcohol and Drug Abuse Patient Records regulations: The Federal rules restrict any use of the information to criminally investigate or prosecute any alcohol or drug abuse patient.[facility] CenterIn the event this information is protected by the Federal Confidentiality of Alcohol and Drug Abuse Patient Records regulations: The Federal rules restrict any use of the information to criminally investigate or prosecute any alcohol or drug abuse patient.[facility] CenterIn the event this information is protected by the Federal Confidentiality of Alcohol and Drug Abuse Patient Records regulations: The Federal rules restrict any use of the information to criminally investigate or prosecute any alcohol or drug abuse patient.[facility] CenterIn the event this information is protected by the Federal Confidentiality of Alcohol and Drug Abuse Patient Records regulations: The Federal rules restrict any use of the information to criminally investigate or prosecute any alcohol or drug abuse patient.[facility] CenterIn the event this information is protected by the Federal Confidentiality of Alcohol and Drug Abuse Patient Records regulations: The Federal rules restrict any use of the information to criminally investigate or prosecute any alcohol or drug abuse patient.[facility] CenterIn the event this information is protected by the Federal Confidentiality of Alcohol and Drug Abuse Patient Records regulations: The Federal rules restrict any use of the information to criminally investigate or prosecute any alcohol or drug abuse patient.[facility] CenterIn the event this information is protected by the Federal Confidentiality of Alcohol and Drug Abuse Patient Records regulations: The Federal rules restrict any use of the information to criminally investigate or prosecute any alcohol or drug abuse patient.[facility] CenterIn the event this information is protected by the Federal Confidentiality of Alcohol and Drug Abuse Patient Records regulations: The Federal rules restrict any use of the information to criminally investigate or prosecute any alcohol or drug abuse patient.[facility] CenterIn the event this information is protected by the Federal Confidentiality of Alcohol and Drug Abuse Patient Records regulations: The Federal rules restrict any use of the information to criminally investigate or prosecute any alcohol or drug abuse patient.[facility] CenterIn the event this information is protected by the Federal Confidentiality of Alcohol and Drug Abuse Patient Records regulations: The Federal rules restrict any use of the information to criminally investigate or prosecute any alcohol or drug abuse patient.[facility] CenterIn the event this information is protected by the Federal Confidentiality of Alcohol and Drug Abuse Patient Records regulations: The Federal rules restrict any use of the information to criminally investigate or prosecute any alcohol or drug abuse patient.[facility] CenterIn the event this information is protected by the Federal Confidentiality of Alcohol and Drug Abuse Patient Records regulations: The Federal rules restrict any use of the information to criminally investigate or prosecute any alcohol or drug abuse patient.[facility] CenterIn the event this information is protected by the Federal Confidentiality of Alcohol and Drug Abuse Patient Records regulations: The Federal rules restrict any use of the information to criminally investigate or prosecute any alcohol or drug abuse patient.[facility] CenterIn the event this information is protected by the Federal Confidentiality of Alcohol and Drug Abuse Patient Records regulations: The Federal rules restrict any use of the information to criminally investigate or prosecute any alcohol or drug abuse patient.[facility] CenterIn the event this information is protected by the Federal Confidentiality of Alcohol and Drug Abuse Patient Records regulations: The Federal rules restrict any use of the information to criminally investigate or prosecute any alcohol or drug abuse patient.[facility] CenterIn the event this information is protected by the Federal Confidentiality of Alcohol and Drug Abuse Patient Records regulations: The Federal rules restrict any use of the information to criminally investigate or prosecute any alcohol or drug abuse patient.[facility] CenterIn the event this information is protected by the Federal Confidentiality of Alcohol and Drug Abuse Patient Records regulations: The Federal rules restrict any use of the information to criminally investigate or prosecute any alcohol or drug abuse patient.[facility] CenterIn the event this information is protected by the Federal Confidentiality of Alcohol and Drug Abuse Patient Records regulations: The Federal rules restrict any use of the information to criminally investigate or prosecute any alcohol or drug abuse patient.[facility] CenterIn the event this information is protected by the Federal Confidentiality of Alcohol and Drug Abuse Patient Records regulations: The Federal rules restrict any use of the information to criminally investigate or prosecute any alcohol or drug abuse patient.[facility] CenterIn the event this information is protected by the Federal Confidentiality of Alcohol and Drug Abuse Patient Records regulations: The Federal rules restrict any use of the information to criminally investigate or prosecute any alcohol or drug abuse patient.[facility] CenterIn the event this information is protected by the Federal Confidentiality of Alcohol and Drug Abuse Patient Records regulations: The Federal rules restrict any use of the information to criminally investigate or prosecute any alcohol or drug abuse patient.[facility] CenterIn the event this information is protected by the Federal Confidentiality of Alcohol and Drug Abuse Patient Records regulations: The Federal rules restrict any use of the information to criminally investigate or prosecute any alcohol or drug abuse patient.[facility] CenterIn the event this information is protected by the Federal Confidentiality of Alcohol and Drug Abuse Patient Records regulations: The Federal rules restrict any use of the information to criminally investigate or prosecute any alcohol or drug abuse patient.[facility] CenterIn the event this information is protected by the Federal Confidentiality of Alcohol and Drug Abuse Patient Records regulations: The Federal rules restrict any use of the information to criminally investigate or prosecute any alcohol or drug abuse patient.[facility] CenterIn the event this information is protected by the Federal Confidentiality of Alcohol and Drug Abuse Patient Records regulations: The Federal rules restrict any use of the information to criminally investigate or prosecute any alcohol or drug abuse patient.[facility] CenterIn the event this information is protected by the Federal Confidentiality of Alcohol and Drug Abuse Patient Records regulations: The Federal rules restrict any use of the information to criminally investigate or prosecute any alcohol or drug abuse patient.[facility] CenterIn the event this information is protected by the Federal Confidentiality of Alcohol and Drug Abuse Patient Records regulations: The Federal rules restrict any use of the information to criminally investigate or prosecute any alcohol or drug abuse patient.[facility] CenterIn the event this information is protected by the Federal Confidentiality of Alcohol and Drug Abuse Patient Records regulations: The Federal rules restrict any use of the information to criminally investigate or prosecute any alcohol or drug abuse patient.[facility] CenterIn the event this information is protected by the Federal Confidentiality of Alcohol and Drug Abuse Patient Records regulations: The Federal rules restrict any use of the information to criminally investigate or prosecute any alcohol or drug abuse patient.[facility] CenterIn the event this information is protected by the Federal Confidentiality of Alcohol and Drug Abuse Patient Records regulations: The Federal rules restrict any use of the information to criminally investigate or prosecute any alcohol or drug abuse patient.[facility] CenterIn the event this information is protected by the Federal Confidentiality of Alcohol and Drug Abuse Patient Records regulations: The Federal rules restrict any use of the information to criminally investigate or prosecute any alcohol or drug abuse patient.[facility] CenterIn the event this information is protected by the Federal Confidentiality of Alcohol and Drug Abuse Patient Records regulations: The Federal rules restrict any use of the information to criminally investigate or prosecute any alcohol or drug abuse patient.[facility] CenterIn the event this information is protected by the Federal Confidentiality of Alcohol and Drug Abuse Patient Records regulations: The Federal rules restrict any use of the information to criminally investigate or prosecute any alcohol or drug abuse patient.[facility] CenterIn the event this information is protected by the Federal Confidentiality of Alcohol and Drug Abuse Patient Records regulations: The Federal rules restrict any use of the information to criminally investigate or prosecute any alcohol or drug abuse patient.[facility] CenterIn the event this information is protected by the Federal Confidentiality of Alcohol and Drug Abuse Patient Records regulations: The Federal rules restrict any use of the information to criminally investigate or prosecute any alcohol or drug abuse patient.[facility] CenterIn the event this information is protected by the Federal Confidentiality of Alcohol and Drug Abuse Patient Records regulations: The Federal rules restrict any use of the information to criminally investigate or prosecute any alcohol or drug abuse patient.[facility] CenterIn the event this information is protected by the Federal Confidentiality of Alcohol and Drug Abuse Patient Records regulations: The Federal rules restrict any use of the information to criminally investigate or prosecute any alcohol or drug abuse patient.[facility] CenterIn the event this information is protected by the Federal Confidentiality of Alcohol and Drug Abuse Patient Records regulations: The Federal rules restrict any use of the information to criminally investigate or prosecute any alcohol or drug abuse patient.[facility] CenterIn the event this information is protected by the Federal Confidentiality of Alcohol and Drug Abuse Patient Records regulations: The Federal rules restrict any use of the information to criminally investigate or prosecute any alcohol or drug abuse patient.[facility] CenterIn the event this information is protected by the Federal Confidentiality of Alcohol and Drug Abuse Patient Records regulations: The Federal rules restrict any use of the information to criminally investigate or prosecute any alcohol or drug abuse patient.[facility] CenterIn the event this information is protected by the Federal Confidentiality of Alcohol and Drug Abuse Patient Records regulations: The Federal rules restrict any use of the information to criminally investigate or prosecute any alcohol or drug abuse patient.[facility] CenterIn the event this information is protected by the Federal Confidentiality of Alcohol and Drug Abuse Patient Records regulations: The Federal rules restrict any use of the information to criminally investigate or prosecute any alcohol or drug abuse patient.[facility] CenterIn the event this information is protected by the Federal Confidentiality of Alcohol and Drug Abuse Patient Records regulations: The Federal rules restrict any use of the information to criminally investigate or prosecute any alcohol or drug abuse patient.[facility] CenterIn the event this information is protected by the Federal Confidentiality of Alcohol and Drug Abuse Patient Records regulations: The Federal rules restrict any use of the information to criminally investigate or prosecute any alcohol or drug abuse patient.[facility] CenterIn the event this information is protected by the Federal Confidentiality of Alcohol and Drug Abuse Patient Records regulations: The Federal rules restrict any use of the information to criminally investigate or prosecute any alcohol or drug abuse patient.[facility] CenterIn the event this information is protected by the Federal Confidentiality of Alcohol and Drug Abuse Patient Records regulations: The Federal rules restrict any use of the information to criminally investigate or prosecute any alcohol or drug abuse patient.[facility] CenterIn the event this information is protected by the Federal Confidentiality of Alcohol and Drug Abuse Patient Records regulations: The Federal rules restrict any use of the information to criminally investigate or prosecute any alcohol or drug abuse patient.[facility] CenterIn the event this information is protected by the Federal Confidentiality of Alcohol and Drug Abuse Patient Records regulations: The Federal rules restrict any use of the information to criminally investigate or prosecute any alcohol or drug abuse patient.[facility] CenterIn the event this information is protected by the Federal Confidentiality of Alcohol and Drug Abuse Patient Records regulations: The Federal rules restrict any use of the information to criminally investigate or prosecute any alcohol or drug abuse patient.[facility] CenterIn the event this information is protected by the Federal Confidentiality of Alcohol and Drug Abuse Patient Records regulations: The Federal rules restrict any use of the information to criminally investigate or prosecute any alcohol or drug abuse patient.[facility] CenterIn the event this information is protected by the Federal Confidentiality of Alcohol and Drug Abuse Patient Records regulations: The Federal rules restrict any use of the information to criminally investigate or prosecute any alcohol or drug abuse patient.[facility] CenterIn the event this information is protected by the Federal Confidentiality of Alcohol and Drug Abuse Patient Records regulations: The Federal rules restrict any use of the information to criminally investigate or prosecute any alcohol or drug abuse patient.[facility] CenterIn the event this information is protected by the Federal Confidentiality of Alcohol and Drug Abuse Patient Records regulations: The Federal rules restrict any use of the information to criminally investigate or prosecute any alcohol or drug abuse patient.[facility] CenterIn the event this information is protected by the Federal Confidentiality of Alcohol and Drug Abuse Patient Records regulations: The Federal rules restrict any use of the information to criminally investigate or prosecute any alcohol or drug abuse patient.[facility] CenterIn the event this information is protected by the Federal Confidentiality of Alcohol and Drug Abuse Patient Records regulations: The Federal rules restrict any use of the information to criminally investigate or prosecute any alcohol or drug abuse patient.[facility] CenterIn the event this information is protected by the Federal Confidentiality of Alcohol and Drug Abuse Patient Records regulations: The Federal rules restrict any use of the information to criminally investigate or prosecute any alcohol or drug abuse patient.[facility] CenterIn the event this information is protected by the Federal Confidentiality of Alcohol and Drug Abuse Patient Records regulations: The Federal rules restrict any use of the information to criminally investigate or prosecute any alcohol or drug abuse patient.[facility] CenterIn the event this information is protected by the Federal Confidentiality of Alcohol and Drug Abuse Patient Records regulations: The Federal rules restrict any use of the information to criminally investigate or prosecute any alcohol or drug abuse patient.[facility] CenterIn the event this information is protected by the Federal Confidentiality of Alcohol and Drug Abuse Patient Records regulations: The Federal rules restrict any use of the information to criminally investigate or prosecute any alcohol or drug abuse patient.[facility] CenterIn the event this information is protected by the Federal Confidentiality of Alcohol and Drug Abuse Patient Records regulations: The Federal rules restrict any use of the information to criminally investigate or prosecute any alcohol or drug abuse patient.[facility] CenterIn the event this information is protected by the Federal Confidentiality of Alcohol and Drug Abuse Patient Records regulations: The Federal rules restrict any use of the information to criminally investigate or prosecute any alcohol or drug abuse patient.[facility] CenterIn the event this information is protected by the Federal Confidentiality of Alcohol and Drug Abuse Patient Records regulations: The Federal rules restrict any use of the information to criminally investigate or prosecute any alcohol or drug abuse patient.[facility] Reason for Visit (unrecogniz ed section and content) Reason Comments Recheck 4 months Reason Comments Patient Education Assessment Specialty Diagnoses / Procedures Referred By Contac t Referred To Contact Nutrition Diagnoses Type 2 diabetes mellitus without complication, without long-term current use of insulin (HCC) Procedures CONSULT TO NUTRITION THERAPY OFFICE/OUTPATIENT [facility] 60-74 MINUTES Rick Sow MD [address] [place] [address] Referral ID Status Reason Start Date Expiration Date V isits Requested Visits Authorized [id number] Closed PCP Requested Referral 11/29/2021 11/29/2022 1 [...] IVCON CT ABDOMEN W/CONTRAST Rick Sow MD [address] [place] [address] [place] [address] Referral ID Status Reason Start Date Expiration Date V isits Requested Visits Authorized [id number] Closed Auto-Generate d Referral 04/08/2023 05/07/2024 1 1 Reason Comments Outside Pathology Report Reason Onset Date Comments Refill Request 08/22/2023 Reason Comments 6 Month Exam Reason Comments Patient Question Specialty Diagnoses / Procedures Referred By Contac t Referred To Contact Diagnoses Uncontrolled type 2 diabetes mellitus with hyperglycemia (HCC) 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) Procedures CONSULT TO DIABETES EDUCATION DSME/MNT MEDICAL NUTRITION ASSMT&IVNTJ INDIV EACH 15 [place] MEDICAL NUTRITION ASSMT&IVNTJ INDIV EACH 15 [place] MEDICAL NUTRITION ASSMT&IVNTJ INDIV EACH 15 [place] MEDICAL NUTRITION ASSMT&IVNTJ INDIV EACH 15 [place] Farzana Kelly PA-C [address] [place] [address] [facility] [address] [place] [address] Referral ID Status Reason Start Date Expiration Date V isits Requested Visits Authorized [id number] Closed PCP Requested Referral 10/01/2023 09/30/2024 1 1 Reason Onset Date Comments Refill Request 12/05/2023 Reason Comments outside opthomology Reason Comments Medicare Wellness Exam Reason Comments Imm/Inj Reason Comments Neck Pain Reason Comments Neck Pain X 2 weeks Reason Comments Patient Question Patient Update Reason Comments Cough X 1 week, sob x 1mon th Reason Comments Hospital F/U [facility] Reason Comments Infectious Disease Consult Reason Comments Outside Pulm Reason Comments D/C Summary Events Reason Comments Hospital F/U Reason Onset Date Comments Transition Of Care 09/07/2024 Follow up day 19 Reason Comments 6 Month Exam Reason Onset Date Comments Refill Request 10/09/2024 Reason Comments Stress Test Outside facility Reason Comments Outside Imaging CT Reason Comments Outside Cardiology Reason Comments Outside [facility] Ordered Reason Comments Abstract DM Eye visit Reason Comments Outside Pulmonary Care Teams (unrecognized sec tion and content) Nuclear Plant Technical Advisor Relationship Specialty Start Date End Date Rick Sow MD [address] [place], [place] [id number] PCP - General Family Practice 03/11/21 Nuclear Plant Technical Advisor Relationship Specialty Start Date End Date Rick Sow MD [address] [place], [place] [id number] PCP - General Family Practice 03/11/21 Nuclear Plant Technical Advisor Relationship Specialty Start Date End Date Rick Sow MD [address] [place] [address] PCP - General Family Practice 03/11/21 Nuclear Plant Technical Advisor Relationship Specialty Start Date End Date Rick Sow MD [facility] [place] [address] PCP - General Family Practice 03/11/21 Nuclear Plant Technical Advisor Relationship Specialty Start Date End Date Rick Sow MD [address] [place] [address] PCP - General Family Practice 03/11/21 Nuclear Plant Technical Advisor Relationship Specialty Start Date End Date Rick Sow MD [address] [place] [address] PCP - General Family Practice 03/11/21 Nuclear Plant Technical Advisor Relationship Specialty Start Date End Date Rick Sow MD [address] [place] [address] PCP - General Family Medicine 03/11/21 Nuclear Plant Technical Advisor Relationship Specialty Start Date End Date Rick Sow MD [address] [place] [address] PCP - General Family Medicine 03/11/21 Nuclear Plant Technical Advisor Relationship Specialty Start Date End Date Rick Sow MD [address] [place] [address] PCP - General Family Medicine 03/11/21 Nuclear Plant Technical Advisor Relationship Specialty Start Date End Date Rick Sow MD [address] [place] [address] [place] [address] PCP - General Family Medicine 03/11/21 Nuclear Plant Technical Advisor Relationship Specialty Start Date End Date Rick Sow MD [address] [place] [address] [place] [address] PCP - General Family Medicine 03/11/21 Nuclear Plant Technical Advisor Relationship Specialty Start Date End Date Rick Sow MD [address] [place] [address] PCP - General Family Medicine 03/11/21 Nuclear Plant Technical Advisor Relationship Specialty Start Date End Date Rick Sow MD [address] [place] [address] PCP - General Family Medicine 03/11/21 Nuclear Plant Technical Advisor Relationship Specialty Start Date End Date Rick Sow MD [address] [place] [address] PCP - General Family Medicine 03/11/21 Nuclear Plant Technical Advisor Relationship Specialty Start Date End Date Rick Sow MD [address] [place] [address] PCP - General Family Medicine 03/11/21 Nuclear Plant Technical Advisor Relationship Specialty Start Date End Date Rick Sow MD [address] [place] [address] PCP - General Family Medicine 03/11/21 Nuclear Plant Technical Advisor Relationship Specialty Start Date End Date Rick Sow MD [address] [place] [address] PCP - General Family Medicine 03/11/21 Nuclear Plant Technical Advisor Relationship Specialty Start Date End Date Rick Sow MD [address] [place] [address] PCP - General Family Medicine 03/11/21 Nuclear Plant Technical Advisor Relationship Specialty Start Date End Date Rick Sow MD [address] [place] [address] PCP - General Family Medicine 03/11/21 Nuclear Plant Technical Advisor Relationship Specialty Start Date End Date Rick Sow MD [address] [place] [address] PCP - General Family Medicine 03/11/21 Nuclear Plant Technical Advisor Relationship Specialty Start Date End Date Rick Sow MD [address] [place] [address] PCP - General Family Medicine 03/11/21 Nuclear Plant Technical Advisor Relationship Specialty Start Date End Date Rick Sow MD [address] [place] [address] PCP - General Family Medicine 03/11/21 Nuclear Plant Technical Advisor Relationship Specialty Start Date End Date Rick Sow MD [address] [place] [address] PCP - General Family Medicine 03/11/21 Nuclear Plant Technical Advisor Relationship Specialty Start Date End Date Rick Sow MD [address] [place] [address] PCP - General Family Medicine 03/11/21 Nuclear Plant Technical Advisor Relationship Specialty Start Date End Date Rick Sow MD [address] [place] [address] PCP - General Family Medicine 03/11/21 Nuclear Plant Technical Advisor Relationship Specialty Start Date End Date Rick Sow MD [address] [place] [address] PCP - General Family Medicine 03/11/21 Team Status: Active Member Role Status Dates Dr. James De Anda III, MD Family Provider Active Dr. Rick Sow MD Primary Care Provider Active Team Status: Active Member Role Status Dates Dr. Kishore De Anda MD Attending Provider, Other Prov ider Active Dr. Rick Sow MD Primary Care Provider, Referri liss Provider Active Team Status: Inactive Member Role Status Dates Dr. Kishore De Anda MD Attending Provider Active Dr. Rick Sow MD Primary Care Provider, Referri liss Provider Active Nuclear Plant Technical Advisor Relationship Specialty Start Date End Date Rick Sow MD [address] [place] [address] PCP - General Family Medicine 03/11/21 Nuclear Plant Technical Advisor Relationship Specialty Start Date End Date Rick Sow MD [address] [place] [address] PCP - General Family Medicine 03/11/21 Nuclear Plant Technical Advisor Relationship Specialty Start Date End Date Rick Sow MD [address] [place] [address] PCP - General Family Medicine 03/11/21 Nuclear Plant Technical Advisor Relationship Specialty Start Date End Date Rick Sow MD [address] [place] [address] PCP - General Family Medicine 03/11/21 Nuclear Plant Technical Advisor Relationship Specialty Start Date End Date Rick Sow MD [address] [place] [address] PCP - General Family Medicine 03/11/21 Nuclear Plant Technical Advisor Relationship Specialty Start Date End Date Rick Sow MD [address] [place] [address] PCP - General Family Medicine 03/11/21 Nuclear Plant Technical Advisor Relationship Specialty Start Date End Date Rick Sow MD [address] [place] [address] PCP - General Family Medicine 03/11/21 Nuclear Plant Technical Advisor Relationship Specialty Start Date End Date Rikc Sow MD [address] [place] [address] PCP - General Family Medicine 03/11/21 Bethanie Ramos APRN.ROTOR WINDER [address] [place] [address] [facility] 06/20/24 Farzana Kelly PA-C [address] [place] [address] [facility] 06/20/24 Nuclear Plant Technical Advisor Relationship Specialty Start Date End Date Rick Sow MD [address] [place] [address] PCP - General Family Medicine 03/11/21 Bethanie Ramos, CHANG.ROTOR WINDER [address] [place] [address] [facility] 06/20/24 Farzana Kelly PA-C [address] [place] [address] [facility] 06/20/24 Nuclear Plant Technical Advisor Relationship Specialty Start Date End Date Rick Sow MD [address] [place] [address] PCP - General Family Medicine 03/11/21 Bethanie Ramos APRN.ROTOR WINDER [address] [place] [address] [facility] 06/20/24 Farzana Kelly PA-C [address] [place] [address] [facility] 06/20/24 Nuclear Plant Technical Advisor Relationship Specialty Start Date End Date Rick Sow MD [address] [place] [address] PCP - General Family Medicine 03/11/21 Bethanie Ramos, CHANG.ROTOR WINDER [address] [place] [address] [facility] 06/20/24 Farzana Kelly PA-C [address] [place] [address] [facility] 06/20/24 Nuclear Plant Technical Advisor Relationship Specialty Start Date End Date Rick Sow MD [address] [place] [address] PCP - General Family Medicine 03/11/21 Bethanie Ramos APRN.ROTOR WINDER [address] [place] [address] [facility] 06/20/24 Farzana Kelly PA-C [address] [place] [address] [facility] 06/20/24 Nuclear Plant Technical Advisor Relationship Specialty Start Date End Date Rick Sow MD [address] [place] [address] PCP - General Family Medicine 03/11/21 Bethanie Ramos, SUPERVISOR [employer] WORK[employer].ROTOR WINDER [address] [place] [address] [facility] 06/20/24 Farzana Kelly PA-C [address] [place] [address] [facility] 06/20/24 Alesia Shrestha, AYALA [address] [place], [place] [id number] Primary Care Bag Making Machine Tender 08/20/24 Nuclear Plant Technical Advisor Relationship Specialty Start Date End Date Rick Sow MD [address] [place] [address] PCP - General Family Medicine 03/11/21 Bethanie Ramos APRN.ROTOR WINDER [address] [place] [address] [facility] 06/20/24 Farzana Kelly PA-C [address] [place] [address] [facility] 06/20/24 Alesia Shrestha, AYALA [address] [place] [address] Primary Care Bag Making Machine Tender 08/20/24 Nuclear Plant Technical Advisor Relationship Specialty Start Date End Date Rick Sow MD [address] [place] [address] PCP - General Family Medicine 03/11/21 Bethanie Ramos APRN.ROTOR WINDER [address] [place] [address] [facility] 06/20/24 Farzana Kelly PA-C [address] [place] [address] [facility] 06/20/24 Alesia Shrestha RN [address] [place] [address] Primary Care Bag Making Machine Tender 08/20/24 Nuclear Plant Technical Advisor Relationship Specialty Start Date End Date Rick Sow MD [address] [place] [address] PCP - General Family Medicine 03/11/21 Bethanie Ramos APRN.ROTOR WINDER [address] [place] [address] [facility] 06/20/24 Farzana Kelly PA-C [address] [place] [address] [facility] 06/20/24 Alesia Shrestha RN [address] [place] [address] Primary Care Bag Making Machine Tender 08/20/24 08/28/24 Tarik Klein RN [address] [place] [address] Primary Care Bag Making Machine Tender 08/28/24 Nuclear Plant Technical Advisor Relationship Specialty Start Date End Date Rick Sow MD [address] [place] [address] PCP - General Family Medicine 03/11/21 Bethanie Ramos, SUPERVISOR [employer] WORK[employer].ROTOR WINDER [address] [place] [address] [facility] 06/20/24 Farzana Kelly PA-C [address] [place] [address] [facility] 06/20/24 Tarik Klein RN [address] [place], [place] [id number] Primary Care Bag Making Machine Tender 08/28/24 Nuclear Plant Technical Advisor Relationship Specialty Start Date End Date Rick Sow MD [address] [place] [address] PCP - General Family Medicine 03/11/21 Bethanie Ramos, CHANG.ROTOR WINDER [address] [place] [address] [facility] 06/20/24 Farzana Kelly PA-C [address] [place] [address] [facility] 06/20/24 Tarik Klein, AYALA [address] [place], [place] [id number] Primary Care Bag Making Machine Tender 08/28/24 Nuclear Plant Technical Advisor Relationship Specialty Start Date End Date Rick Sow MD [address] [place] [address] PCP - General Family Medicine 03/11/21 Bethanie Ramos, SUPERVISOR [employer] WORK[employer].ROTOR WINDER [address] [place] [address] [facility] 06/20/24 Farzana Kelly PA-C [address] [place] [address] [facility] 06/20/24 Tarik Klein RN [address] [place] [address] Primary Care Bag Making Machine Tender 08/28/24 Nuclear Plant Technical Advisor Relationship Specialty Start Date End Date Rick Sow MD [address] [place] [address] PCP - General Family Medicine 03/11/21 Bethanie Ramos, SUPERVISOR [employer] WORK[employer].ROTOR WINDER [address] [place] [address] [facility] [place] Farzana Kelly PA-C [address] [place] [address] [facility] [place]24 Nuclear Plant Technical Advisor Relationship Specialty Start Date End Date Rick Sow MD [address] [place] [address] PCP - General Family Medicine 03/11/21 Bethanie Ramos, CHANG.ROTOR WINDER [address] [place] [address] [facility] 06/20/24 Farzana Kelly PA-C [address] [place] [address] [facility] 06/20/24 Nuclear Plant Technical Advisor Relationship Specialty Start Date End Date Rick Sow MD [address] [place] [address] PCP - General Family Medicine 03/11/21 Bethanie Ramos, SUPERVISOR [employer].ROTOR WINDER [address] [place] [address] [facility] 06/20/24 Farzana Kelly PA-C [address] [place] [address] [facility] 06/20/24 Team Status: Active Member Role Status [...] End: August 19, 2024 Dr. Mary Delcid DO Other Provider Active Start: August 15, [...] S tart: August 17, 2024 Dr. Carol Mcgregor MD Other Provider Active Start: August 17, [...] Active Start : August 18, 2024 Dr. aMriya Ibanez MD Other Provider Active Star t: [...] Bah DO Admit Provider Active Start: August 19, 2024 [...] 2024 End: September 23, 2024 Юлия Bermudez BOAT AND PLANT UTILITY SUPERVISOR, BOAT AND PLANT UTILITY SUPERVISOR-C Attending Provider Active Start: September 23, 2024 [...] Provider Active Star t: October 19, 2024 Nuclear Plant Technical Advisor Relationship Specialty Start Date End Date Rick Sow MD [address] [place] [address] PCP - General Family Medicine 10/19/24 Bethanie Ramos APRN.CNP [address] [place], [place] [address] [facility] 06/20/24 Farzana Kelly PA-C [address] [place] [address] [facility] 06/20/24 Team Status: Inactive Member Role Status Dates Dr. Rick Sow MD Primary Care Provider Active Start: October 28, 2024 End: October 28, 2024 Юлия Bermudez BOAT AND PLANT UTILITY SUPERVISOR, BOAT AND PLANT UTILITY SUPERVISOR-C Attending Provider Active Start: October 28, 2024 End: October 28, 2024 Юлия Bermudez BOAT AND PLANT UTILITY SUPERVISOR, BOAT AND PLANT UTILITY SUPERVISOR-C Referring Provider Active Start: October 28, 2024 End: October 28, 2024 Team Status: Active Member Role Status Dates Dr. Rick Sow MD Primary Care Provider Active Start: October 29, 2024 Юлия Bermudez BOAT AND PLANT UTILITY SUPERVISOR, BOAT AND PLANT UTILITY SUPERVISOR-C Referring Provider Active Start: October 29, 2024 Юлия Bermudez BOAT AND PLANT UTILITY SUPERVISOR, BOAT AND PLANT UTILITY SUPERVISOR-C Other Provider Active Start: October 29, 2024 Dr. Edd Perez DO Attending Provider Active S tart: October 29, 2024 Team Status: Active Member Role Status Dates Dr. Rick Sow MD Primary Care Provider Active Start: October 30, 2024 Юлия Bermudez BOAT AND PLANT UTILITY SUPERVISOR, BOAT AND PLANT UTILITY SUPERVISOR-C Attending Provider Active Start: October 30, 2024 Юлия Bermudez BOAT AND PLANT UTILITY SUPERVISOR, BOAT AND PLANT UTILITY SUPERVISOR-C Referring Provider Active Start: October 30, 2024 Team Status: Active Member Role Status Dates Dr. Rick Sow MD Primary Care Provider Active Start: November 02, 2024 Юлия Bermudez BOAT AND PLANT UTILITY SUPERVISOR, BOAT AND PLANT UTILITY SUPERVISOR-C Attending Provider Active Start: November 02, 2024 Юлия Bermudez BOAT AND PLANT UTILITY SUPERVISOR, BOAT AND PLANT UTILITY SUPERVISOR-C Referring Provider Active Start: November 02, 2024 Nuclear Plant Technical Advisor Relationship Specialty Start Date End Date Rick Sow MD [address] [place] [address] PCP - General Family Medicine 10/19/24 Bethanie Rmaos APRN.ROTOR WINDER [address] [place] [address] [facility] 06/20/24 Farzana Kelly PA-C [address] [place] [phone] [facility] 06/20/24 Nuclear Plant Technical Advisor Relationship Specialty Start Date End Date Rick Sow MD [address] [place] [id number] PCP - General Family Medicine 10/19/24 Bethanie Ramos APRN.CNP [address] [place] [phone] [facility] 06/20/24 Farzana Kelly PA-C [address] [place] [phone] [facility] 06/20/24 Team Status: Inactive Member Role Status Dates Dr. Rick Sow MD Primary Care Provider Active Start: October 30, 2024 End: October 30, 2024 Юлия Bermudez BOAT AND PLANT UTILITY SUPERVISOR, BOAT AND PLANT UTILITY SUPERVISOR-C Attending Provider Active Start: October 30, 2024 End: October 30, 2024 Юлия Bermudez BOAT AND PLANT UTILITY SUPERVISOR, BOAT AND PLANT UTILITY SUPERVISOR-C Referring Provider Active Start: October 30, 2024 End: October 30, 2024 Team Status: Inactive Member Role Status Dates Dr. Rick Sow MD Primary Care Provider Active Start: November 02, 2024 End: November 02, 2024 Юлия Bermudez NP, BOAT AND PLANT UTILITY SUPERVISOR-C Attending Provider Active Start: November 02, 2024 End: November 02, 2024 Юлия Bermudez BOAT AND PLANT UTILITY SUPERVISOR, BOAT AND PLANT UTILITY SUPERVISOR-C Referring Provider Active Start: November 02, 2024 End: November 02, 2024 Team Status: Inactive Member Role Status Dates Dr. Rick Sow MD Primary Care Provider Active Start: November 13, 2024 End: November 13, 2024 Dr. Rick Sow MD Referring Provider Active Start: November 13, 2024 End: November 13, 2024 Юлия Bermudez NP, BOAT AND PLANT UTILITY SUPERVISOR-C Attending Provider Active Start: November 13, 2024 End: November 13, 2024 Team Status: Inactive Member Role Status Dates Dr. Rick Sow MD Primary Care Provider Active Start: December 15, 2024 End: December 15, 2024 Юлия Bermudez NP, BOAT AND PLANT UTILITY SUPERVISOR-C Attending Provider Active Start: December 15, 2024 End: December 15, 2024 Юлия Bermudez BOAT AND PLANT UTILITY SUPERVISOR, BOAT AND PLANT UTILITY SUPERVISOR-C Referring Provider Active Start: December 15, 2024 [...] 2024 End: September 23, 2024 Юлия Bermudez BOAT AND PLANT UTILITY SUPERVISOR, BOAT AND PLANT UTILITY SUPERVISOR-C Attending Provider Active Start: September 23, 2024 [...] 2024 End: October 28, 2024 Юлия Bermudez BOAT AND PLANT UTILITY SUPERVISOR, BOAT AND PLANT UTILITY SUPERVISOR-C Attending Provider Active Start: October 28, 2024 End: October 28, 2024 Юлия Bermudez BOAT AND PLANT UTILITY SUPERVISOR, BOAT AND PLANT UTILITY SUPERVISOR-C Referring Provider Active Start: October 28, 2024 End: October 28, 2024 Team Status: Active Member Role/Relationship Status Dates Dr. Rick Sow MD Primary Care Provider Active Start: October 29, 2024 Юлия Bermudez BOAT AND PLANT UTILITY SUPERVISOR, BOAT AND PLANT UTILITY SUPERVISOR-C Referring Provider Active Start: October 29, 2024 Юлия Bermudez BOAT AND PLANT UTILITY SUPERVISOR, BOAT AND PLANT UTILITY SUPERVISOR-C Other Provider Active Start: October 29, 2024 Dr. Edd Perez DO Attending Provider Active S tart: October 29, 2024 Team Status: Inactive Member Role/Relationship Status Dates Dr. Rick Sow MD Primary Care Provider Active Start: October 30, 2024 End: October 30, 2024 Юлия Bermudez BOAT AND PLANT UTILITY SUPERVISOR, BOAT AND PLANT UTILITY SUPERVISOR-C Attending Provider Active Start: October 30, 2024 End: October 30, 2024 Юлия Bermudez BOAT AND PLANT UTILITY SUPERVISOR, BOAT AND PLANT UTILITY SUPERVISOR-C Referring Provider Active Start: October 30, 2024 End: October 30, 2024 Team Status: Inactive Member Role/Relationship Status Dates Dr. Rick Sow MD Primary Care Provider Active Start: November 02, 2024 End: November 02, 2024 Юлия Bermudez BOAT AND PLANT UTILITY SUPERVISOR, BOAT AND PLANT UTILITY SUPERVISOR-C Attending Provider Active Start: November 02, 2024 End: November 02, 2024 Юлия Bermudez BOAT AND PLANT UTILITY SUPERVISOR, BOAT AND PLANT UTILITY SUPERVISOR-C Referring Provider Active Start: November 02, 2024 End: November 02, 2024 Team Status: Inactive Member Role/Relationship Status Dates Dr. Rick Sow MD Primary Care Provider Active Start: November 13, 2024 End: November 13, 2024 Dr. Rick Sow MD Referring Provider Active Start: November 13, 2024 End: November 13, 2024 Юлия Bermudez BOAT AND PLANT UTILITY SUPERVISOR, BOAT AND PLANT UTILITY SUPERVISOR-C Attending Provider Active Start: November 13, 2024 End: November 13, 2024 Team Status: Inactive Member Role/Relationship Status Dates Dr. Rick Sow MD Primary Care Provider Active Start: December 15, 2024 End: December 15, 2024 Юлия Bermudez BOAT AND PLANT UTILITY SUPERVISOR, BOAT AND PLANT UTILITY SUPERVISOR-C Attending Provider Active Start: December 15, 2024 End: December 15, 2024 Юлия Bermudez BOAT AND PLANT UTILITY SUPERVISOR, BOAT AND PLANT UTILITY SUPERVISOR-C Referring Provider Active Start: December 15, 2024 End: December 15, 2024 Team Status: Inactive Member Role/Relationship Status Dates Dr. Rick Sow MD Primary Care Provider Active Start: January 14, 2025 End: January 14, 2025 Dr. Rick Sow MD Referring Provider Active Start: January 14, 2025 End: January 14, 2025 Raquel Penny BOAT AND PLANT UTILITY SUPERVISOR, BOAT AND PLANT UTILITY SUPERVISOR-C Attending Provider Active Start: January 14, 2025 End: January 14, 2025 Nuclear Plant Technical Advisor Relationship Specialty Start Date End Date Rick Sow MD [address] [place] [address] [id number] PCP - General Family Medicine 10/19/24 Bethanie Ramos APRN.[employer]ER [address] [place] [phone] [address] 12/14/24 Farzana Kelly PA-C [address] [place] [address] [phone] [facility] 12/14/24 Team Status: Inactive Member Role/Relationship Status [...] 2024 End: October 28, 2024 Юлия Bermudez NP, BOAT AND PLANT UTILITY SUPERVISOR-C Attending Provider Active Start: October 28, 2024 End: October 28, 2024 Юлия Bermudez BOAT AND PLANT UTILITY SUPERVISOR, BOAT AND PLANT UTILITY SUPERVISOR-C Referring Provider Active Start: October 28, 2024 End: October 28, 2024 Team Status: Active Member Role/Relationship Status Dates Dr. Rick Sow MD Primary Care Provider Active Start: October 29, 2024 Юлия Bermudez BOAT AND PLANT UTILITY SUPERVISOR, BOAT AND PLANT UTILITY SUPERVISOR-C Referring Provider Active Start: October 29, 2024 Юлия Bermudez BOAT AND PLANT UTILITY SUPERVISOR, BOAT AND PLANT UTILITY SUPERVISOR-C Other Provider Active Start: October 29, 2024 Dr. Edd Perez DO Attending Provider Active S tart: October 29, 2024 Team Status: Inactive Member Role/Relationship Status Dates Dr. Rick Sow MD Primary Care Provider Active Start: October 30, 2024 End: October 30, 2024 Юлия Bermudez BOAT AND PLANT UTILITY SUPERVISOR, BOAT AND PLANT UTILITY SUPERVISOR-C Attending Provider Active Start: October 30, 2024 End: October 30, 2024 Юлия Bermudez BOAT AND PLANT UTILITY SUPERVISOR, BOAT AND PLANT UTILITY SUPERVISOR-C Referring Provider Active Start: October 30, 2024 End: October 30, 2024 Team Status: Inactive Member Role/Relationship Status Dates Dr. Rick Sow MD Primary Care Provider Active Start: November 02, 2024 End: November 02, 2024 Юлия Bermudez BOAT AND PLANT UTILITY SUPERVISOR, BOAT AND PLANT UTILITY SUPERVISOR-C Attending Provider Active Start: November 02, 2024 End: November 02, 2024 Юлия Bermudez BOAT AND PLANT UTILITY SUPERVISOR, BOAT AND PLANT UTILITY SUPERVISOR-C Referring Provider Active Start: November 02, 2024 End: November 02, 2024 Team Status: Inactive Member Role/Relationship Status Dates Dr. Rick Sow MD Primary Care Provider Active Start: November 13, 2024 End: November 13, 2024 Dr. Rick Sow MD Referring Provider Active Start: November 13, 2024 End: November 13, 2024 Юлия Bermudez BOAT AND PLANT UTILITY SUPERVISOR, BOAT AND PLANT UTILITY SUPERVISOR-C Attending Provider Active Start: November 13, 2024 End: November 13, 2024 Team Status: Inactive Member Role/Relationship Status Dates Dr. Rick Sow MD Primary Care Provider Active Start: December 15, 2024 End: December 15, 2024 Юлия Bermudez BOAT AND PLANT UTILITY SUPERVISOR, BOAT AND PLANT UTILITY SUPERVISOR-C Attending Provider Active Start: December 15, 2024 End: December 15, 2024 Юлия Bermudez BOAT AND PLANT UTILITY SUPERVISOR, BOAT AND PLANT UTILITY SUPERVISOR-C Referring Provider Active Start: December 15, 2024 End: December 15, 2024 Team Status: Inactive Member Role/Relationship Status Dates Dr. Rick Sow MD Primary Care Provider Active Start: January 14, 2025 End: January 14, 2025 Dr. Rick Sow MD Referring Provider Active Start: January 14, 2025 End: January 14, 2025 Raquel Penny BOAT AND PLANT UTILITY SUPERVISOR, BOAT AND PLANT UTILITY SUPERVISOR-C Attending Provider Active Start: January 14, 2025 End: January 14, 2025 Team Status: Inactive Member Role/Relationship Status Dates Dr. Rick Sow MD Primary Care Provider Active Start: January 25, 2025 End: January 25, 2025 Raquel Penny BOAT AND PLANT UTILITY SUPERVISOR, BOAT AND PLANT UTILITY SUPERVISOR-C Attending Provider Active Start: January 25, 2025 End: January 25, 2025 Raquel Penny BOAT AND PLANT UTILITY SUPERVISOR, BOAT AND PLANT UTILITY SUPERVISOR-C Referring Provider Active Start: January 25, 2025 End: January 25, 2025 Team Status: Inactive Member Role/Relationship Status Dates Dr. Rick Sow MD Primary Care Provider Active Start: January 29, 2025 End: January 29, 2025 Raquel Penny BOAT AND PLANT UTILITY SUPERVISOR, BOAT AND PLANT UTILITY SUPERVISOR-C Attending Provider Active Start: January 29, 2025 End: January 29, 2025 Raquel Penny BOAT AND PLANT UTILITY SUPERVISOR, BOAT AND PLANT UTILITY SUPERVISOR-C Referring Provider Active Start: January 29, 2025 End: January 29, 2025 Team Status: Inactive Member Role/Relationship Status Dates Dr. Rick Sow MD Primary Care Provider Active Start: October 28, 2024 End: October 28, 2024 Юлия Bermudez BOAT AND PLANT UTILITY SUPERVISOR, BOAT AND PLANT UTILITY SUPERVISOR-C Attending Provider Active Start: October 28, 2024 End: October 28, 2024 Юлия Bermudez BOAT AND PLANT UTILITY SUPERVISOR, BOAT AND PLANT UTILITY SUPERVISOR-C Referring Provider Active Start: October 28, 2024 End: October 28, 2024 Team Status: Active Member Role/Relationship Status Dates Dr. Rick Sow MD Primary Care Provider Active Start: October 29, 2024 Юлия Bermudez BOAT AND PLANT UTILITY SUPERVISOR, BOAT AND PLANT UTILITY SUPERVISOR-C Referring Provider Active Start: October 29, 2024 Юлия Bermudez BOAT AND PLANT UTILITY SUPERVISOR, BOAT AND PLANT UTILITY SUPERVISOR-C Other Provider Active Start: October 29, 2024 Dr. Edd Perez DO Attending Provider Active S tart: October 29, 2024 Team Status: Inactive Member Role/Relationship Status Dates Dr. Rick Sow MD Primary Care Provider Active Start: October 30, 2024 End: October 30, 2024 Юлия Bermudez BOAT AND PLANT UTILITY SUPERVISOR, BOAT AND PLANT UTILITY SUPERVISOR-C Attending Provider Active Start: October 30, 2024 End: October 30, 2024 Юлия Bermudez BOAT AND PLANT UTILITY SUPERVISOR, BOAT AND PLANT UTILITY SUPERVISOR-C Referring Provider Active Start: October 30, 2024 End: October 30, 2024 Team Status: Inactive Member Role/Relationship Status Dates Dr. Rick Sow MD Primary Care Provider Active Start: November 02, 2024 End: November 02, 2024 Юлия Bermudez BOAT AND PLANT UTILITY SUPERVISOR, BOAT AND PLANT UTILITY SUPERVISOR-C Attending Provider Active Start: November 02, 2024 End: November 02, 2024 Юлия Bermudez BOAT AND PLANT UTILITY SUPERVISOR, BOAT AND PLANT UTILITY SUPERVISOR-C Referring Provider Active Start: November 02, 2024 End: November 02, 2024 Team Status: Inactive Member Role/Relationship Status Dates Dr. Rick Sow MD Primary Care Provider Active Start: November 13, 2024 End: November 13, 2024 Dr. Rick Sow MD Referring Provider Active Start: November 13, 2024 End: November 13, 2024 Юлия Bermudez BOAT AND PLANT UTILITY SUPERVISOR, BOAT AND PLANT UTILITY SUPERVISOR-C Attending Provider Active Start: November 13, 2024 End: November 13, 2024 Team Status: Inactive Member Role/Relationship Status Dates Dr. Rick Sow MD Primary Care Provider Active Start: December 15, 2024 End: December 15, 2024 Юлия Bermudez BOAT AND PLANT UTILITY SUPERVISOR, BOAT AND PLANT UTILITY SUPERVISOR-C Attending Provider Active Start: December 15, 2024 End: December 15, 2024 Юлия Bermudez BOAT AND PLANT UTILITY SUPERVISOR, BOAT AND PLANT UTILITY SUPERVISOR-C Referring Provider Active Start: December 15, 2024 End: December 15, 2024 Team Status: Inactive Member Role/Relationship Status Dates Dr. Rick Sow MD Primary Care Provider Active Start: January 14, 2025 End: January 14, 2025 Dr. Rick Sow MD Referring Provider Active Start: January 14, 2025 End: January 14, 2025 Raquel Penny BOAT AND PLANT UTILITY SUPERVISOR, BOAT AND PLANT UTILITY SUPERVISOR-C Attending Provider Active Start: January 14, 2025 End: January 14, 2025 Team Status: Inactive Member Role/Relationship Status Dates Dr. Rick Sow MD Primary Care Provider Active Start: January 25, 2025 End: January 25, 2025 Raquel Penny BOAT AND PLANT UTILITY SUPERVISOR, BOAT AND PLANT UTILITY SUPERVISOR-C Attending Provider Active Start: January 25, 2025 End: January 25, 2025 Raquel Penny BOAT AND PLANT UTILITY SUPERVISOR, BOAT AND PLANT UTILITY SUPERVISOR-C Referring Provider Active Start: January 25, 2025 End: January 25, 2025 Team Status: Inactive Member Role/Relationship Status Dates Dr. Rick Swo MD Primary Care Provider Active Start: January 29, 2025 End: January 29, 2025 Raquel Penny BOAT AND PLANT UTILITY SUPERVISOR, BOAT AND PLANT UTILITY SUPERVISOR-C Attending Provider Active Start: January 29, 2025 End: January 29, 2025 Raquel Penny BOAT AND PLANT UTILITY SUPERVISOR, BOAT AND PLANT UTILITY SUPERVISOR-C Referring Provider Active Start: January 29, 2025 End: January 29, 2025 Team Status: Inactive Member Role/Relationship Status Dates Dr. Rick Sow MD Primary Care Provider Active Start: February 17, 2025 End: February 17, 2025 Dr. Rick Sow MD Referring Provider Active Start: February 17, 2025 End: February 17, 2025 Юлия Bermudez BOAT AND PLANT UTILITY SUPERVISOR, BOAT AND PLANT UTILITY SUPERVISOR-C Attending Provider Active Start: February 17, 2025 End: February 17, 2025 Team Status: Inactive Member Role/Relationship Status Dates Dr. Rick Sow MD Primary Care Provider Active Start: November 13, 2024 End: November 13, 2024 Dr. Rick Sow MD Referring Provider Active Start: November 13, 2024 End: November 13, 2024 Юлия Bermudez BOAT AND PLANT UTILITY SUPERVISOR, BOAT AND PLANT UTILITY SUPERVISOR-C Attending Provider Active Start: November 13, 2024 End: November 13, 2024 Team Status: Inactive Member Role/Relationship Status Dates Dr. Rick Sow MD Primary Care Provider Active Start: December 15, 2024 End: December 15, 2024 Юлия Bermudez BOAT AND PLANT UTILITY SUPERVISOR, BOAT AND PLANT UTILITY SUPERVISOR-C Attending Provider Active Start: December 15, 2024 End: December 15, 2024 Юлия Bermudez BOAT AND PLANT UTILITY SUPERVISOR, BOAT AND PLANT UTILITY SUPERVISOR-C Referring Provider Active Start: December 15, 2024 End: December 15, 2024 Team Status: Inactive Member Role/Relationship Status Dates Dr. Rick Sow MD Primary Care Provider Active Start: January 14, 2025 End: January 14, 2025 Dr. Rick Sow MD Referring Provider Active Start: January 14, 2025 End: January 14, 2025 Raquel Penny BOAT AND PLANT UTILITY SUPERVISOR, BOAT AND PLANT UTILITY SUPERVISOR-C Attending Provider Active Start: January 14, 2025 End: January 14, 2025 Team Status: Inactive Member Role/Relationship Status Dates Dr. Rick Sow MD Primary Care Provider Active Start: January 25, 2025 End: January 25, 2025 Raquel Penny BOAT AND PLANT UTILITY SUPERVISOR, BOAT AND PLANT UTILITY SUPERVISOR-C Attending Provider Active Start: January 25, 2025 End: January 25, 2025 Raquel Penny BOAT AND PLANT UTILITY SUPERVISOR, BOAT AND PLANT UTILITY SUPERVISOR-C Referring Provider Active Start: January 25, 2025 End: January 25, 2025 Team Status: Inactive Member Role/Relationship Status Dates Dr. Rick Sow MD Primary Care Provider Active Start: January 29, 2025 End: January 29, 2025 Raquel Penny BOAT AND PLANT UTILITY SUPERVISOR, BOAT AND PLANT UTILITY SUPERVISOR-C Attending Provider Active Start: January 29, 2025 End: January 29, 2025 Raquel Penny BOAT AND PLANT UTILITY SUPERVISOR, BOAT AND PLANT UTILITY SUPERVISOR-C Referring Provider Active Start: January 29, 2025 End: January 29, 2025 Team Status: Active Member Role/Relationship Status Dates Dr. Rick Sow MD Primary Care Provider Active Start: January 29, 2025 Dr. Melinda Cifuentes MD Attending Provider Active Start: January 29, 2025 Raquel Penny BOAT AND PLANT UTILITY SUPERVISOR, BOAT AND PLANT UTILITY SUPERVISOR-C Referring Provider Active Start: January 29, 2025 Team Status: Inactive Member Role/Relationship Status Dates Dr. Rick Sow MD Primary Care Provider Active Start: February 17, 2025 End: February 17, 2025 Dr. Rick Sow MD Referring Provider Active Start: February 17, 2025 End: February 17, 2025 Юлия Bermudez BOAT AND PLANT UTILITY SUPERVISOR, BOAT AND PLANT UTILITY SUPERVISOR-C Attending Provider Active Start: February 17, 2025 End: February 17, 2025 Team Status: Inactive Member Role/Relationship Status Dates Dr. Rick Sow MD Primary Care Provider Active Start: March 03, 2025 End: March 03, 2025 Юлия Bermudez BOAT AND PLANT UTILITY SUPERVISOR, BOAT AND PLANT UTILITY SUPERVISOR-C Attending Provider Active Start: March 03, 2025 End: March 03, 2025 Юлия Bermudez BOAT AND PLANT UTILITY SUPERVISOR, BOAT AND PLANT UTILITY SUPERVISOR-C Referring Provider Active Start: March 03, 2025 End: March 03, 2025 Nuclear Plant Technical Advisor Relationship Specialty Start Date End Date Rick Sow MD [address] [place] [address] PCP - General Family Medicine 10/19/24 Bethanie Ramos APRN.CNP [address] [place] [id number] [facility] 12/14/24 Farzana Kelly PA-C [address] [place] [id number] [facility] 12/14/24 Team Status: Inactive Member Role/Relationship Status Dates Dr. Rick Sow MD Primary Care Provider Active Start: December 15, 2024 End: December 15, 2024 Юлия Bermudez BOAT AND PLANT UTILITY SUPERVISOR, BOAT AND PLANT UTILITY SUPERVISOR-C Attending Provider Active Start: December 15, 2024 End: December 15, 2024 Юлия Bermudez BOAT AND PLANT UTILITY SUPERVISOR, BOAT AND PLANT UTILITY SUPERVISOR-C Referring Provider Active Start: December 15, 2024 End: December 15, 2024 Team Status: Inactive Member Role/Relationship Status Dates Dr. Rick Sow MD Primary Care Provider Active Start: January 14, 2025 End: January 14, 2025 Dr. Rick Sow MD Referring Provider Active Start: January 14, 2025 End: January 14, 2025 Raquel Penny BOAT AND PLANT UTILITY SUPERVISOR, BOAT AND PLANT UTILITY SUPERVISOR-C Attending Provider Active Start: January 14, 2025 End: January 14, 2025 Team Status: Inactive Member Role/Relationship Status Dates Dr. Rick Sow MD Primary Care Provider Active Start: January 25, 2025 End: January 25, 2025 Raquel Penny BOAT AND PLANT UTILITY SUPERVISOR, BOAT AND PLANT UTILITY SUPERVISOR-C Attending Provider Active Start: January 25, 2025 End: January 25, 2025 Raquel Penny BOAT AND PLANT UTILITY SUPERVISOR, BOAT AND PLANT UTILITY SUPERVISOR-C Referring Provider Active Start: January 25, 2025 End: January 25, 2025 Team Status: Inactive Member Role/Relationship Status Dates Dr. Rick Sow MD Primary Care Provider Active Start: January 29, 2025 End: January 29, 2025 Raquel Penny BOAT AND PLANT UTILITY SUPERVISOR, BOAT AND PLANT UTILITY SUPERVISOR-C Attending Provider Active Start: January 29, 2025 End: January 29, 2025 Raquel Penny BOAT AND PLANT UTILITY SUPERVISOR, BOAT AND PLANT UTILITY SUPERVISOR-C Referring Provider Active Start: January 29, 2025 End: January 29, 2025 Team Status: Active Member Role/Relationship Status Dates Dr. Rick Sow MD Primary Care Provider Active Start: January 29, 2025 Dr. Melinda Cifuentes MD Attending Provider Active Start: January 29, 2025 Raquel Penny BOAT AND PLANT UTILITY SUPERVISOR, BOAT AND PLANT UTILITY SUPERVISOR-C Referring Provider Active Start: January 29, 2025 Team Status: Inactive Member Role/Relationship Status Dates Dr. Rick Sow MD Primary Care Provider Active Start: February 17, 2025 End: February 17, 2025 Dr. Rcik Sow MD Referring Provider Active Start: February 17, 2025 End: February 17, 2025 Юлия Bermudez BOAT AND PLANT UTILITY SUPERVISOR, BOAT AND PLANT UTILITY SUPERVISOR-C Attending Provider Active Start: February 17, 2025 End: February 17, 2025 Team Status: Inactive Member Role/Relationship Status Dates Dr. Rick Sow MD Primary Care Provider Active Start: March 03, 2025 End: March 03, 2025 Юлия Bermudez BOAT AND PLANT UTILITY SUPERVISOR, BOAT AND PLANT UTILITY SUPERVISOR-C Attending Provider Active Start: March 03, 2025 End: March 03, 2025 Юлия Bermudez BOAT AND PLANT UTILITY SUPERVISOR, BOAT AND PLANT UTILITY SUPERVISOR-C Referring Provider Active Start: March 03, 2025 End: March 03, 2025 Team Status: Inactive Member Role/Relationship Status Dates Dr. Rick Sow MD Primary Care Provider Active Start: March 26, 2025 End: March 26, 2025 Dr. Rick Sow MD Referring Provider Active Start: March 26, 2025 End: March 26, 2025 Юлия Bermudez BOAT AND PLANT UTILITY SUPERVISOR, BOAT AND PLANT UTILITY SUPERVISOR-C Attending Provider Active Start: March 26, 2025 End: March 26, 2025 Team Status: Active Member Role/Relationship Status Dates Dr. Rick Sow MD Primary care physician Active Team Status: Inactive Member Role/Relationship Status Dates Dr. Rick Sow MD Primary care physician Active Start: December 15, 2024 End: December 15, 2024 Юлия Bermudez BOAT AND PLANT UTILITY SUPERVISOR, BOAT AND PLANT UTILITY SUPERVISOR-C Attending physician Active Start: December 15, 2024 End: December 15, 2024 Юлия Bermudez BOAT AND PLANT UTILITY SUPERVISOR, BOAT AND PLANT UTILITY SUPERVISOR-C Referring Provider Active Start: December 15, 2024 End: December 15, 2024 Team Status: Inactive Member Role/Relationship Status Dates Dr. Rick Sow MD Primary care physician Active Start: January 14, 2025 End: January 14, 2025 Dr. Rick Sow MD Referring Provider Active Start: January 14, 2025 End: January 14, 2025 Raquel Penny BOAT AND PLANT UTILITY SUPERVISOR, BOAT AND PLANT UTILITY SUPERVISOR-C Attending physician Active Start: January 14, 2025 End: January 14, 2025 Team Status: Inactive Member Role/Relationship Status Dates Dr. Rick Sow MD Primary care physician Active Start: January 25, 2025 End: January 25, 2025 Raquel Penny BOAT AND PLANT UTILITY SUPERVISOR, BOAT AND PLANT UTILITY SUPERVISOR-C Attending physician Active Start: January 25, 2025 End: January 25, 2025 Raquel Penny BOAT AND PLANT UTILITY SUPERVISOR, BOAT AND PLANT UTILITY SUPERVISOR-C Referring Provider Active Start: January 25, 2025 End: January 25, 2025 Team Status: Inactive Member Role/Relationship Status Dates Dr. Rick Sow MD Primary care physician Active Start: January 29, 2025 End: January 29, 2025 Raquel Penny BOAT AND PLANT UTILITY SUPERVISOR, BOAT AND PLANT UTILITY SUPERVISOR-C Attending physician Active Start: January 29, 2025 End: January 29, 2025 Raquel Penny BOAT AND PLANT UTILITY SUPERVISOR, BOAT AND PLANT UTILITY SUPERVISOR-C Referring Provider Active Start: January 29, 2025 End: January 29, 2025 Team Status: Active Member Role/Relationship Status Dates Dr. Rick Sow MD Primary care physician Active Start: January 29, 2025 Dr. Melinda Cifuentes MD Attending physician Active Start: January 29, 2025 Raquel Penny BOAT AND PLANT UTILITY SUPERVISOR, BOAT AND PLANT UTILITY SUPERVISOR-C Referring Provider Active Start: January 29, 2025 Team Status: Inactive Member Role/Relationship Status Dates Dr. Rick Sow MD Primary care physician Active Start: February 17, 2025 End: February 17, 2025 Dr. Rick Sow MD Referring Provider Active Start: February 17, 2025 End: February 17, 2025 Юлия Bermudez BOAT AND PLANT UTILITY SUPERVISOR, BOAT AND PLANT UTILITY SUPERVISOR-C Attending physician Active Start: February 17, 2025 End: February 17, 2025 Team Status: Inactive Member Role/Relationship Status Dates Dr. Rick Sow MD Primary care physician Active Start: March 03, 2025 End: March 03, 2025 Юлия Bermudez BOAT AND PLANT UTILITY SUPERVISOR, BOAT AND PLANT UTILITY SUPERVISOR-C Attending physician Active Start: March 03, 2025 End: March 03, 2025 Юлия Bermudez BOAT AND PLANT UTILITY SUPERVISOR, BOAT AND PLANT UTILITY SUPERVISOR-C Referring Provider Active Start: March 03, 2025 End: March 03, 2025 Team Status: Inactive Member Role/Relationship Status Dates Dr. Rick Sow MD Primary care physician Active Start: March 26, 2025 End: March 26, 2025 Dr. Rick Sow MD Referring Provider Active Start: March 26, 2025 End: March 26, 2025 Юлия Bermudez BOAT AND PLANT UTILITY SUPERVISOR, BOAT AND PLANT UTILITY SUPERVISOR-C Attending physician Active Start: March 26, 2025 End: March 26, 2025 Team Status: Inactive Member Role/Relationship Status Dates Dr. Rick Sow MD Primary care physician Active Start: April 05, 2025 End: April 05, 2025 Юлия Bermudez BOAT AND PLANT UTILITY SUPERVISOR, BOAT AND PLANT UTILITY SUPERVISOR-C Attending physician Active Start: April 05, 2025 End: April 05, 2025 Юлия Bermudez BOAT AND PLANT UTILITY SUPERVISOR, BOAT AND PLANT UTILITY SUPERVISOR-C Referring Provider Active Start: April 05, 2025 End: April 05, 2025 Team Status: Inactive Member Role/Relationship Status Dates Dr. Rick Sow MD Primary care physician Active Start: January 14, 2025 End: January 14, 2025 Dr. Rick Sow MD Referring Provider Active Start: January 14, 2025 End: January 14, 2025 Raquel Penny BOAT AND PLANT UTILITY SUPERVISOR, BOAT AND PLANT UTILITY SUPERVISOR-C Attending physician Active Start: January 14, 2025 End: January 14, 2025 Team Status: Inactive Member Role/Relationship Status Dates Dr. Rick Sow MD Primary care physician Active Start: January 25, 2025 End: January 25, 2025 Raquel Penny BOAT AND PLANT UTILITY SUPERVISOR, BOAT AND PLANT UTILITY SUPERVISOR-C Attending physician Active Start: January 25, 2025 End: January 25, 2025 Raquel Penny BOAT AND PLANT UTILITY SUPERVISOR, BOAT AND PLANT UTILITY SUPERVISOR-C Referring Provider Active Start: January 25, 2025 End: January 25, 2025 Team Status: Inactive Member Role/Relationship Status Dates Dr. Rick Sow MD Primary care physician Active Start: January 29, 2025 End: January 29, 2025 Raquel Penny BOAT AND PLANT UTILITY SUPERVISOR, BOAT AND PLANT UTILITY SUPERVISOR-C Attending physician Active Start: January 29, 2025 End: January 29, 2025 Raquel Penny BOAT AND PLANT UTILITY SUPERVISOR, BOAT AND PLANT UTILITY SUPERVISOR-C Referring Provider Active Start: January 29, 2025 End: January 29, 2025 Team Status: Active Member Role/Relationship Status Dates Dr. Rick Sow MD Primary care physician Active Start: January 29, 2025 Dr. Melinda Cifuentes MD Attending physician Active Start: January 29, 2025 Raquel Penny BOAT AND PLANT UTILITY SUPERVISOR, BOAT AND PLANT UTILITY SUPERVISOR-C Referring Provider Active Start: January 29, 2025 Team Status: Inactive Member Role/Relationship Status Dates Dr. Rick Sow MD Primary care physician Active Start: February 17, 2025 End: February 17, 2025 Dr. Rick Sow MD Referring Provider Active Start: February 17, 2025 End: February 17, 2025 Юлия Bermudez BOAT AND PLANT UTILITY SUPERVISOR, BOAT AND PLANT UTILITY SUPERVISOR-C Attending physician Active Start: February 17, 2025 End: February 17, 2025 Team Status: Inactive Member Role/Relationship Status Dates Dr. Rick Sow MD Primary care physician Active Start: March 03, 2025 End: March 03, 2025 Юлия Bermudez BOAT AND PLANT UTILITY SUPERVISOR, BOAT AND PLANT UTILITY SUPERVISOR-C Attending physician Active Start: March 03, 2025 End: March 03, 2025 Юлия Bermudez BOAT AND PLANT UTILITY SUPERVISOR, BOAT AND PLANT UTILITY SUPERVISOR-C Referring Provider Active Start: March 03, 2025 End: March 03, 2025 Team Status: Inactive Member Role/Relationship Status Dates Dr. Rick Sow MD Primary care physician Active Start: March 26, 2025 End: March 26, 2025 Dr. Rick Sow MD Referring Provider Active Start: March 26, 2025 End: March 26, 2025 Юлия Bermudez BOAT AND PLANT UTILITY SUPERVISOR, BOAT AND PLANT UTILITY SUPERVISOR-C Attending physician Active Start: March 26, 2025 End: March 26, 2025 Team Status: Inactive Member Role/Relationship Status Dates Dr. Rick Sow MD Primary care physician Active Start: April 05, 2025 End: April 05, 2025 Юлия Bermudez NP, BOAT AND PLANT UTILITY SUPERVISOR-C Attending physician Active Start: April 05, 2025 End: April 05, 2025 Юлия Bermudez NP, NP-Rodriguez Referring Provider Active Start: April 05, 2025 End: April 05, 2025 Team Status: Inactive Member Role/Relationship Status Dates Dr. Rick Sow MD Primary care physician Active Start: April 15, 2025 End: April 15, 2025 Dr. Rick Sow MD Referring Provider Active Start: April 15, 2025 End: April 15, 2025 Raquel Penny NP, BOAT AND PLANT UTILITY SUPERVISOR-C Attending physician Active Start: April 15, 2025 End: April 15, 2025 (unrecognized sect ion and content) No Status Records FoundNo Status Records Found INFORMATION SOURCE (unrecogn ized section and content) DATE CREATED AUTHOR 04/30/2025 [facility] DATE CREATED AUTHOR AUTHOR'S ORGANIZ ATION 05/01/2025 [facility] FOR RECORDS PERTAINING TO PATIENTS WHO ARE [...] BE BASED ON THE PRIMARY CLINICAL RECORDS. [facility]. provides no warranty or guarantee of the accuracy or completeness of information in this document.
== END | disposition home or self-care (01) ==
LOC: SL 20:06
PROVIDERS: PCP Family Medicine; Referring Provider Nurse Practitioner Acute Care; Visit Provider Nurse Practitioner Acute Care
DX: G47.33 Obstructive sleep apnea (adult) (pediatric) (principal)
CPT/HCPCS: 95811

== ENCOUNTER → 2025-05-31 | Outpatient (CLI) | payer MEDICARE, OTHER, SELFPAY | END | disposition home or self-care (01) | LOC: SL 12:09 | PROVIDERS: PCP Family Medicine; Referring Provider Nurse Practitioner Acute Care; Visit Provider Nurse Practitioner Acute Care | DX: Z00.00 Encounter for general adult medical examination without abnormal findings (principal) ==